=== PATIENT | female | born 1950 | race Caucasian/White ===

== ENCOUNTER → 2019-05-08 08:20 | Outpatient (CLI) | payer MEDICARE, SELFPAY ==
[2019-05-08 09:32] LABS: Alanine Aminotransferase 19 IU/L (<35); Albumin 4.3 g/dL (3.5-5.0); Albumin Globulin Ratio 1.2 (1.0-2.8); Alkaline Phosphatase 56 U/L (38-126); Aspartate Aminotransferase 21 IU/L (14-36); BUN Creatinine Ratio 21.2 (6-22); Bilirubin Total 0.6 mg/dL (0.2-1.3); Blood Urea Nitrogen 18 mg/dL (7-17); Calcium 9.9 mg/dL (8.4-10.2); Carbon Dioxide 30 mmol/L (22-32); Chloride 100 mmol/L (98-107); Estimated Glomerular Filt Rate > 60.0 mL/min (>60); Globulin 3.5 g/dL (1.7-4.1); Glucose 101 mg/dL (80-110); HEMOLYSIS < 15 (0-50); Sodium 136 mmol/L (137-145); Total Protein 7.8 g/dL (6.3-8.2)
[2019-05-08 09:47] LABS: Free T3, Triiodothyronine Free 2.85 pg/mL (2.77-5.27); Free T4, Direct Thyroxine 1.61 ng/dL (0.78-2.19)
[2019-05-08 10:00] LABS: Thyroid Stimulating Hormone 3.16 uIU/mL (0.47-4.68)
== END ==
PROVIDERS: PCP Nurse Practitioner; Referring Provider Nurse Practitioner; Visit Provider Nurse Practitioner
DX: E03.9 Hypothyroidism, unspecified (principal); F32.9 Major depressive disorder, single episode, unspecified; I10 Essential (primary) hypertension; Z79.899 Other long term (current) drug therapy
CPT/HCPCS: 36415; 80053; 84439; 84443; 84481

== ENCOUNTER → 2019-05-15 08:39 | Outpatient (CLI) | payer MEDICARE, SELFPAY ==
[2019-05-15 10:05] LABS: Alanine Aminotransferase 280 IU/L (<35); Albumin 4.7 g/dL (3.5-5.0); Albumin Globulin Ratio 1.3 (1.0-2.8); Alkaline Phosphatase 134 U/L (38-126); Aspartate Aminotransferase 122 IU/L (14-36); BUN Creatinine Ratio 11.3 (6-22); Bilirubin Total 1.2 mg/dL (0.2-1.3); Blood Urea Nitrogen 11 mg/dL (7-17); Carbon Dioxide 31 mmol/L (22-32); Chloride 96 mmol/L (98-107); Estimated Glomerular Filt Rate 56.9 mL/min (>60); Globulin 3.7 g/dL (1.7-4.1); Glucose 102 mg/dL (80-110); HEMOLYSIS < 15 (0-50); Potassium 4.1 mmol/L (3.4-5.1); Sodium 137 mmol/L (137-145); Total Protein 8.4 g/dL (6.3-8.2)
[2019-05-16 02:36] LABS: HBsAg Screen Negative (Negative); Hepatitis A Antibody IgM Negative (Negative); Hepatitis B Core Antibody IgM Negative (Negative); Hepatitis C Antibody <0.1 s/co ratio (0.0-0.9)
== END ==
PROVIDERS: PCP Nurse Practitioner; Referring Provider Nurse Practitioner; Visit Provider Nurse Practitioner
DX: R10.9 Unspecified abdominal pain (principal); R74.8 Abnormal levels of other serum enzymes
CPT/HCPCS: 36415; 80053; 80074

== ENCOUNTER → 2019-08-13 14:07 | Outpatient (CLI) | payer MEDICARE, SELFPAY | PROVIDERS: PCP Nurse Practitioner; Referring Provider Nurse Practitioner; Visit Provider Nurse Practitioner | DX: Z13.820 Encounter for screening for osteoporosis (principal); M81.0 Age-related osteoporosis without current pathological fracture; Z78.0 Asymptomatic menopausal state; E03.9 Hypothyroidism, unspecified; I10 Essential (primary) hypertension; F32.9 Major depressive disorder, single episode, unspecified; Z79.899 Other long term (current) drug therapy; Z82.62 Family history of osteoporosis | CPT/HCPCS: 77080 ==

== ENCOUNTER → 2019-08-21 12:32 | Outpatient (CLI) | payer MEDICARE, SELFPAY ==
[2019-08-21 15:40] LABS: Alanine Aminotransferase 17 IU/L (<35); Albumin 4.5 g/dL (3.5-5.0); Albumin Globulin Ratio 1.4 (1.0-2.8); Alkaline Phosphatase 64 U/L (38-126); Aspartate Aminotransferase 22 IU/L (14-36); Bilirubin Total 0.5 mg/dL (0.2-1.3); Bilirubin Unconjugated 0.4 mg/dL (0.0-1.1); Globulin 3.2 g/dL (1.7-4.1); HEMOLYSIS < 15 (0-50); Total Protein 7.7 g/dL (6.3-8.2)
== END ==
PROVIDERS: PCP Nurse Practitioner; Referring Provider Nurse Practitioner; Visit Provider Nurse Practitioner
DX: R94.5 Abnormal results of liver function studies (principal)
CPT/HCPCS: 36415; 80076

== ENCOUNTER → 2019-09-10 10:50 | Outpatient (CLI) | payer MEDICARE, SELFPAY ==
[2019-09-11 08:02] LABS: COVID19 Sendout Not Detected (Not Detect)
== END ==
PROVIDERS: PCP Nurse Practitioner; Visit Provider Physician Assistant
DX: Z01.812 Encounter for preprocedural laboratory examination (principal)
CPT/HCPCS: 87635

== ENCOUNTER 2019-09-13 06:47 | Day surgery (SDC) | payer MEDICARE, SELFPAY ==
--- NOTE | 2019-09-13 | PATH_ITS ---
[facility] Accession Number: [id number] . 01 Material submitted: . colon - COLON POLYP AT 65CM . 02 Diagnosis: Colon at 65 cm, Polyp: Colonic mucosa with prominent benign lymphoid aggregate. Negative for serrated lesion, dysplasia or malignancy. Additional step sections examined. MRV 09/17/2019 1356 Local . 02 Electronically signed: . Asim Camejo MD, PhD, Pathologist NPI- [id number] . 01 Gross description: . COLON POLYP AT 65CM: Received in formalin is 1 fragment(s) of bar, soft tissue measuring 0.3 x 0.2 x 0.2 cm submitted entirely in 1 cassette(s) /QBJ 09/14/2019 0435 Local . 02 Pathologist provided ICD-10: K63.5 . 02 CPT . 322901 Performed at: 01 [facility] [address], [place], [place] [id number] MD Mak Cullen MD Phone: [phone] Performed at: 02 [facility] [address] [place], [place] [id number] MD Alexandra Rivera MD Phone: [phone]
[2019-09-13 07:06] VITALS: BP 138/74; PULSE 74; RESP 18; TEMP 36.4; O2SAT 96; BMI 33.0
--- NOTE | 2019-09-13 07:17 | PM.HP.1 ---
History of Present Illness History of Present Illness Date Patient Seen: 09/13/19 Time Patient Seen: 07:17 Chief complaint: [id number] Narrative: This is a 68 yo woman with personal history of colon polyps found on prior colonoscopy. She says it has been about five years since her last procedure and she was told she is overdue for follow up scope. She denies any melena, hematochezia, unexplained abdominal pain, unexplained weight loss, significant family history of colon cancer. ROS: Positive for arthritis, hip pain, depression. The patient wears glasses. Thirteen system review is otherwise negative other than as mentioned below and in HPI. PE: GENERAL: Well groomed and cooperative. Appears stated age. Answers questions promptly and appropriately. Vital signs noted. HENT: Normocephalic, atraumatic. Hearing intact. EYES: Conjunctiva pink, sclera white, no periorbital swelling. CARDIOVASCULAR: Regular rate. No pedal edema. RESPIRATORY: Non-tachypneic, breathing comfortably on room air. GASTROINTESTINAL: Abdomen soft and non-distended GENITALURINARY: No flank tenderness. MUSCULOSKELETAL: Equal tone and mass bilaterally. SKIN: Warm, dry, soft, appropriate color for ethnicity. No other lesions, rashes, or wounds. NEURO: Alert and Oriented X 3. No gross sensory deficits, or cognitive issues. PSYCH: Appropriate affect and mood. Patient History Medical History Chronic lower back pain (Acute) Depression (Chronic) Elevated LFTs (Acute) Foot pain (Inactive ~1987) Hip pain (Chronic ~2016) Hypertension (Acute) Hypothyroidism (Chronic ~2013) Presence of orthotic device (Acute) Rosacea (Chronic) Tinnitus (Chronic ~2005) Surgical History Anesthesia (Resolved) Uterine polyp (Resolved ~2014) Family & Social History Family History Father Stroke Mother Hypertension Tobacco & Substance use: Smoking Status Never smoker Meds Home Medications and Allergies Home Medications Medication Instructions Recorded Confirmed Type levothyroxine 88 mcg tablet 88 mcg PO DAILY #90 tab 05/07/19 08/21/19 Rx bupropion HCl 100 mg tablet,12 hr 100 mg PO BID #180 each 05/27/19 08/21/19 Rx sustained-release lisinopril 20 1 tab PO DAILY #90 tab 07/26/19 08/21/19 Rx mg-hydrochlorothiazide 12.5 mg tablet Allergies Allergy/AdvReac Type Severity Reaction Status Date / Time No Known Drug Allergies Allergy Verified 09/13/19 07:19 Assessment & Plan Assessment and plan (1) Personal history of colonic polyps: Status: Acute Assessment & Plan narrative: Risks and benefits of screening colonoscopy and possible polypectomy were discussed with the patient including risk of bleeding, perforation, need for additional procedures, risks of anesthesia. The patient desires to proceed with the colonoscopy procedure. COVID-19 COVID-19 status: Negative Result date/Date tested (Pos, Neg/Pending): 09/10/19 Time Spent With Patient Time with patient: 15-24 minutes Quality VTE Deep Vein Thrombosis/Pulmonary Embolism Present on Admission: No
[2019-09-13] MEDS: SODIUM CHLORIDE 0.9% 1,000 ML 200 ML IV (07:21)
[2019-09-13] MEDS: MIDAZOLAM 5 MG/5 ML VIAL IV (07:55)
[2019-09-13] MEDS: fentaNYL 250 MCG/5 ML INJ IV (07:55)
--- NOTE | 2019-09-13 08:05 | PM.OP.ENDO ---
Operative Date/Time/Diagnoses Date of procedure: 09/13/19 Time of procedure: 08:05 Pre-op diagnosis: Personal history of colon polyps Post-op diagnosis: other (single polyp at 65 cm from the anal verge) Procedure & Clinicians Study performed: Colonoscopy, cold forceps polypectomy Sedation by endoscopist Same procedure as scheduled: Yes Indications: This is a 68-year-old woman who has had multiple prior colonoscopies, and polyps removed Surgeon: Kena Geronimo Procedure Notes SCOAP/Timeout: Performed Procedure in detail: The patient was brought to the room and placed in left lateral decubitus position with all bony prominences padded. A time-out was performed and then the patient was given procedural sedation starting with 2 mg of Versed and [100] mcg of fentanyl. A total of 3 mg of Versed and 150 micro g of fentanyl were given for the entire procedure. Vitals were monitored throughout the procedure and remained stable. Once adequately sedated, the procedure was begun. A rectal exam was performed revealing [no abnormalities]. The colonoscope was then introduced to the rectum and advanced to the cecum in the usual fashion. []The cecum was identified by the appendiceal orifice, the mucosal tri-fold, and the ileocecal valve. The scope was then retracted while rotating side to side and examining each mucosal fold. A 3 mm sessile polyp was found at 65 cm from the anal verge in the descending colon. It was completely removed with cold forceps. [] At the conclusion of the procedure retroflexion was performed and [small grade 1-2 internal hemorrhoids without stigmata of bleeding were seen]. The scope was then withdrawn from the rectum the procedure was concluded. The patient tolerated the procedure well and was transferred to the PACU in stable condition. Scope withdrawal time: 9 Sedation minutes: 16 Findings: polyp Specimen(s): other (Polyp from 65 cm) Complications: none Impression: Single polyp, otherwise normal colon Post-procedure Recommendations: Colonscopy in 5 years (Due to polyp history) Follow up: as needed Disposition: PACU
[2019-09-13 08:10] VITALS: BP 96/78; PULSE 59; RESP 11; TEMP 36.7; O2SAT 92
[2019-09-13 08:15] VITALS: BP 104/63; PULSE 99; RESP 11; O2SAT 92
[2019-09-13 08:20] VITALS: BP 103/57; PULSE 61; RESP 8; O2SAT 91
[2019-09-13 08:25] VITALS: BP 118/78; PULSE 73; RESP 13; TEMP 36.3; O2SAT 93
[2019-09-13 08:39] VITALS: BP 106/69; PULSE 65; RESP 16; TEMP 36.3; O2SAT 96
== END 2019-09-13 08:55 | disposition home or self-care (01) ==
PROVIDERS: PCP Nurse Practitioner; Referring Provider Surgery; Visit Provider Surgery
PROC: 0DJD8ZZ Inspection of Lower Intestinal Tract, Via Natural or Artificial Opening Endoscopic (ICD-10-PCS; CPT 45378; principal; 2019-09-13 07:45)
DX: Z12.11 Encounter for screening for malignant neoplasm of colon (principal); Z86.010 Personal history of colon polyps; I10 Essential (primary) hypertension; F32.9 Major depressive disorder, single episode, unspecified; E03.9 Hypothyroidism, unspecified; K64.0 First degree hemorrhoids; K63.5 Polyp of colon
CPT/HCPCS: 45380; 99152; J2250; J3010

== ENCOUNTER → 2019-11-27 16:29 | Outpatient (CLI) | payer MEDICARE, SELFPAY ==
--- NOTE | 2019-11-27 16:36 | DI.MG.S_ITS ---
BILATERAL DIGITAL SCREENING MAMMOGRAM 3D/2D WITH CAD: 11/27/2019 CLINICAL: Routine screening. Comparison is made to exams dated: 12/08/2017 mammogram, 10/28/2016 mammogram, and 10/19/2015 mammogram - outside location. The tissue of both breasts is predominantly fatty. Current study was also evaluated with a Computer Aided Detection (CAD) system. No significant masses, calcifications, or other findings are seen in either breast. There has been no significant interval change. IMPRESSION: NEGATIVE There is no mammographic evidence of malignancy. A 1 year screening mammogram is recommended. This exam was interpreted at Station ID: [id number]. NOTE: For mammograms, a report in lay terms will be sent to the patient. Approximately 15% of breast malignancies will not be visualized mammographically. In the management of a palpable breast mass, a negative mammogram must not discourage biopsy of a clinically suspicious lesion. Electronically Signed By: Dominick Lawson M.D., jr/eh:11/27/2019 16:59:35 letter sent: Normal Exam ACR BI-RADS Category 1: Negative 3341F
== END ==
PROVIDERS: PCP Nurse Practitioner; Referring Provider Nurse Practitioner; Visit Provider Nurse Practitioner
DX: Z12.31 Encounter for screening mammogram for malignant neoplasm of breast (principal)
CPT/HCPCS: 77063; 77067

== ENCOUNTER → 2020-12-18 09:32 | Outpatient (CLI) | payer MEDICARE, SELFPAY ==
[2020-12-18 10:55] LABS: Alanine Aminotransferase 22 IU/L (<35); Albumin 4.4 g/dL (3.5-5.0); Albumin Globulin Ratio 1.3 (1.0-2.8); Alkaline Phosphatase 63 U/L (38-126); Aspartate Aminotransferase 23 IU/L (14-36); Bilirubin Total 0.5 mg/dL (0.2-1.3); Blood Urea Nitrogen 15 mg/dL (7-17); Carbon Dioxide 29 mmol/L (22-32); Chloride 99 mmol/L (98-107); Estimated Glomerular Filt Rate 54.7 mL/min (>60); Globulin 3.5 g/dL (1.7-4.1); Glucose 104 mg/dL (80-110); HEMOLYSIS < 15 (0-50); Potassium 3.9 mmol/L (3.4-5.1); Sodium 136 mmol/L (137-145); Total Protein 7.9 g/dL (6.3-8.2)
[2020-12-18 11:25] LABS: Thyroid Stimulating Hormone 4.54 uIU/mL (0.47-4.68)
== END ==
PROVIDERS: PCP Nurse Practitioner; Referring Provider Nurse Practitioner; Visit Provider Nurse Practitioner
DX: I10 Essential (primary) hypertension (principal); E03.9 Hypothyroidism, unspecified; F32.9 Major depressive disorder, single episode, unspecified; R79.89 Other specified abnormal findings of blood chemistry; Z79.899 Other long term (current) drug therapy
CPT/HCPCS: 36415; 80053; 84443

== ENCOUNTER → 2020-12-19 09:39 | Outpatient (CLI) | payer MEDICARE, SELFPAY ==
[2020-12-19 10:27] LABS: Creatinine Urine Random 188.5 mg/dL
[2020-12-19 10:32] LABS: Microalbumi Creatinin Ratio Ur 7.4 ug/mg CR (<30); Microalbumin Urine Random 1.4 mg/dL (0-1.6)
== END ==
PROVIDERS: PCP Nurse Practitioner; Referring Provider Nurse Practitioner; Visit Provider Nurse Practitioner
DX: R79.89 Other specified abnormal findings of blood chemistry (principal); I10 Essential (primary) hypertension; F32.9 Major depressive disorder, single episode, unspecified; E03.9 Hypothyroidism, unspecified; Z79.899 Other long term (current) drug therapy
CPT/HCPCS: 82043; 82570

== ENCOUNTER → 2021-01-15 10:58 | Outpatient (CLI) | payer MEDICARE, SELFPAY ==
--- NOTE | 2021-01-15 | DI.RAD.S_ITS ---
PROCEDURE: XR DEXA AXIAL SKELETON INDICATIONS: ROUTINE MAMMO COMPARISON: [facility], CR, XR DEXA AXIAL SKELETON, 08/13/2019, 14:44. FINDINGS: This blank DEXA report has been sent in error by the PACS system. The correct and complete report will be forthcoming in 1-2 days. Thank you for your patience and understanding. Dictated by: Tori Mora MD, PhD on 01/15/2021 at 16:19 Approved by: Toir Mora MD, PhD on 01/15/2021 at 16:19
--- NOTE | 2021-01-15 11:00 | DI.MG.S_ITS ---
BILATERAL DIGITAL SCREENING MAMMOGRAM 3D/2D WITH CAD: 01/15/2021 CLINICAL: Routine screening. Comparison is made to exams dated: 12/08/2017 mammogram, 10/28/2016 mammogram - outside location, and 11/27/2019 mammogram - [facility]. There are scattered fibroglandular elements in both breasts. Current study was also evaluated with a Computer Aided Detection (CAD) system. No significant masses, calcifications, or other findings are seen in either breast. There has been no significant interval change. IMPRESSION: NEGATIVE There is no mammographic evidence of malignancy. A 1 year screening mammogram is recommended. This exam was interpreted at Station ID: [id number]. NOTE: For mammograms, a report in lay terms will be sent to the patient. Approximately 15% of breast malignancies will not be visualized mammographically. In the management of a palpable breast mass, a negative mammogram must not discourage biopsy of a clinically suspicious lesion. Electronically Signed By: Min casarez/eh:01/15/2021 12:34:33 letter sent: Normal Exam ACR BI-RADS Category 1: Negative [id number]
== END ==
PROVIDERS: Family Provider Nurse Practitioner; PCP Nurse Practitioner; Referring Provider Nurse Practitioner; Visit Provider Nurse Practitioner
DX: Z12.31 Encounter for screening mammogram for malignant neoplasm of breast (principal); M85.88 Other specified disorders of bone density and structure, other site; Z78.0 Asymptomatic menopausal state; E07.9 Disorder of thyroid, unspecified; Z82.62 Family history of osteoporosis
CPT/HCPCS: 77063; 77067; 77080

== ENCOUNTER → 2021-02-02 12:03 | Outpatient (CLI) | payer MEDICARE, SELFPAY ==
[2021-02-02 12:39] LABS: Leukocyte Esterase Urine UA 1+ (NEGATIVE)
[2021-02-02 12:59] LABS: Squamous Epithelial Cell Urine 5-10 /HPF (0-5/HPF); WBC Urine 5-10/HPF (0-5/HPF)
== END ==
PROVIDERS: Family Provider Nurse Practitioner; PCP Nurse Practitioner; Referring Provider Nurse Practitioner; Visit Provider Nurse Practitioner
DX: N89.8 Other specified noninflammatory disorders of vagina (principal); R30.0 Dysuria
CPT/HCPCS: 81003; 81015; 87070; 87077; 87147; 87205

== ENCOUNTER 2021-03-10 11:15 | Outpatient (RCR) | payer MEDICARE, SELFPAY ==
--- NOTE | 2021-01-07 17:17 | PT.OPPOC ---
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) Pain in right foot (01/07/21) Difficulty in walking, not elsewhere classified (01/07/21) Visit Care Team Role Provider Type DALE Jimenez Attending Provider Advanced Catalogue Maker Family Provider Primary Care Provider Referring Provider Specialty: Family Practice Address: [address] [place] [address], [facility] Email: [email or web address] Plan Of Care PT-OP-T Assessment and Plan Start: 01/06/21 12:55 Freq: Status: Active Protocol: Document 01/07/21 09:45 AW (Rec: 01/07/21 17:22 AW [email or web address]) Physical Therapy Assessment Rehab Potential Rehabilitation Potential Good Evaluation Complexity Number of Personal Factors/Comorbidities 1-2 Number of Body Systems Impaired 1-2 Clinical Presentation at Evaluation Stable Impairments Impairments Activity Tolerance,Balance, Gait,Pain,Posture,Strength Other Concerns Fall Risk moderate Goals Five Impairment endurance Impairment Pt lacks tolerance to walk a mile Short Term Goal (STG) Pt will complete 1200 feet on 6MWT with no breaks as a measure of improved walking tolerance. STG Duration 02/11/21 Access Service Representative Goal (LTG) Pt will complete 1500 feet on 6MWT with no breaks as a measure of improved walking tolerance and parity with age and gender-matched peers. LTG Duration 04/09/21 Four Impairment strength Impairment unable to squat to work in garden Short Term Goal (STG) Pt will complete 10 reps or greater on 30 Second Sit to Stand test without use of hands for improved BLE strength. STG Duration 02/11/21 Access Service Representative Goal (LTG) Pt will get up from the floor SBA to improve her ability to participate in gardening activities. LTG Duration 04/09/21 Three Impairment self-efficacy Impairment ABC score 80% Access Service Representative Goal (LTG) Pt will improve ABC score to 90% or greater as a measure of improved self-efficacy related to falls risk. LTG Duration 04/09/21 Two Impairment dynamic balance Impairment FGA Access Service Representative Goal (LTG) Pt will improve FGA score from to 27/30 or greater for parity with age-matched peers and as a measure of reduced falls risk. LTG Duration 04/09/21 One Impairment lacks HEP Short Term Goal (STG) Pt will be instructed in progressive HEP for general BLE strengthening. STG Duration 02/11/21 Snf Goal (LTG) Pt will be independent with HEP with possible addition of machine weight exercises for pool/gym workouts. LTG Duration 04/09/21 Assessment Summary Assessment Harleen is a 70 yo woman presenting to outpatient physical therapy with general deconditioning and weakness associated with decreased activity over the past two years. 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 On assessment, pt demonstrates decreased bilateral lower extremity strength and impaired dynamic balance as evidenced by Functional Gait Assessment score of 22/30. Harleen is expected to benefit from skilled physical therapy to improve strength, gait quality , and balance with the goal of returning to gardening, walking, and weight lifting activities. Physical Therapy Plan Frequency and Duration Frequency of Treatment 1-2x/week Duration of Treatment 3 months Plan of Care Start Date 01/07/21 Plan of Care End Date 04/09/21 Therapeutic Interventions Therapeutic Interventions Balance Training,Gait Training ,Home Exercise Program,Manual Therapy,Orthotic/Prosthetic Management,Patient/Caregiver Education,Self-Care/Home Management,Soft Tissue Mobilization,Taping, Therapeutic Activities, Therapeutic Exercises Modalities Cold Pack/Ice Massage,Hot Packs Next Visit Focus/Plan Next Note Type Treatment Note Next Visit Plan Assess 5 Time Sit to Stand, 6MWT. Recumbent bike for endurance. Initiate intrinsic foot exercise and assess potential for standing ther ex . Plan of Care Dates Plan of Care Start Date 01/07/21 Plan of Care End Date 04/09/21 Electronically Signed by: Lisseth Yost, PT 01/12/21 0540 Please Sign and Return: I have reviewed this Plan of Care and certify that the skilled therapy services above are required to meet the patient?s needs. Physician Signature Date Printed Name and Credentials Clinical Instructor Signature Printed Name and Credentials
--- NOTE | 2021-01-07 17:17 | PT.OIE ---
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) Pain in right foot (01/07/21) Difficulty in walking, not elsewhere classified (01/07/21) Past Medical History (Last Reviewed 12/30/20 @ 16:25 by DALE Jimenez) Chronic lower back pain Counseling regarding advanced care planning and goals of care Depression Elevated LFTs Foot pain (~1987) Hip pain (~2016) Hypertension Hypothyroidism (~2013) Presence of orthotic device Rosacea Tinnitus (~2005) Past Surgical History (Last Reviewed 12/30/20 @ 16:25 by DALE Jimenez) Anesthesia Uterine polyp (~2014) Visit Care Team Role Provider Type DALE Jimenez Attending Provider Advanced Chiropractic Teacher Family Provider Primary Care Provider Referring Provider Specialty: Family Practice Address: [address] [place] [address], [facility] Email: [email or web address] Physical Therapy Initial Evaluation PT-OP-A Visit Information Start: 01/06/21 12:55 Freq: Status: Active Protocol: Document 01/07/21 09:45 AW (Rec: 01/07/21 10:20 AW [email or web address]) Out-Patient Physical Therapy Visit Information Visit Information Visit Type Initial Evaluation Visit Start Time 09:00 Visit Stop Time 09:45 Total Visit Minutes 45 Visit Number 1 Number of NOC TECHNICIAN Visits 0 Evaluation Information Evaluation Date 01/07/21 Precautions Precautions osteoporosis PT-OP-B Current Condition Start: 01/06/21 12:55 Freq: Status: Active Protocol: Document 01/07/21 09:45 AW (Rec: 01/06/21 14:33 AW [email or web address]) Current Condition History of Current Condition Onset Date 2 years Current Complaints right foot pain; B knee pain; fear of falling History of Current Condition Harleen used to be more active, including aerobics classes, swimming, and weight room workouts up until a few years ago. She has been less and less active recently. She attributes this to pandemic restrictions but also to right foot pain. She says her right foot arch collapsed 30 years ago without known cause. She wears a custom orthotic in all of her shoes. She is followed by podiatry who agrees her current orthosis is appropriate. She feels terribly weak and is fearful of falling due to osteoporosis . Current activity includes pool exercise three times weekly which is an important social outlet. She belongs to [employer]. She would like to have an appropriate program to use the weight room at the pool. She now finds it difficult to walk longer distances without walking sticks but she is comfortable doing shopping trips without assistive device. She notes her walking is hesitant and slow. Pt denies falls but remains fearful of falling. PMH includes osteoporosis, depression, tinnitus, HTN. Prior Treatments and Tests Pt is followed by podiatry. No prior PT. Future Testing and Treatments Planned None identified Treatment Goals Patient/Caregiver Goals Pt would like to be more comfortable working in the garden. She has difficulty squatting to garden so tends to sit down on the ground but has trouble getting up. She would like to walk farther with less pain. She would like to engage in a weightlifting program. Prior Functional Status Baseline Function- ADL's Independent Baseline Function- Mobility Independent Baseline Function- Gait no AD Current Functional Impairments (Reported) Functional Limitations- ADL's Dressing has become more challenging Functional Limitations- Mobility/Gait Bed mobility and other transitions are difficult. Needs walking sticks for longer distance walking. Functional Limitations- Recreation/ Trouble squatting and getting Hobbies up from the ground which limits gardening. Personal Factors Other Personal Factors That May Effect Depression and chronicity of Therapy/Recovery deficits may affect rehab outcomes. PT-OP-C Subjective Start: 01/06/21 12:55 Freq: Status: Active Protocol: Document 01/07/21 09:45 AW (Rec: 01/07/21 10:20 AW [email or web address]) OP-PT Subjective Patient Comments Patient Comments Pt reports weakness and fear of falling. Patient Questionnaires ABC- Activity Specific Balance Confidence Scale ABC Score 80 ABC Functional Impairment 20 to <40% Impaired (Score 61- 80) Lower Extremity Functional Scale LEFS Score 48 LEFS Impairment 20 to 39% Impaired (Score 48- 62) OP-PT Pain Assessment Pain Assessment Grid Paper Pain Assessment Grid Completed Yes: Scanned to EMR PT-OP-D Balance Start: 01/06/21 12:55 Freq: Status: Active Protocol: Document 01/07/21 09:45 AW (Rec: 01/07/21 10:25 AW [email or web address]) OP-PT Balance Assessment Sitting Balance Static Sitting Balance Ability Normal Dynamic Sitting Balance Ability Normal Standing Balance Static Standing Balance Ability Fair Dynamic Standing Balance Ability Fair Arora Fall Scale Copyright Permission PT-OP-E Functional Tests Start: 01/06/21 12:55 Freq: Status: Active Protocol: Document 01/07/21 09:45 AW (Rec: 01/07/21 10:25 AW [email or web address]) Functional Tests Dynamic Gait Index (DGI) Score 21 DGI Impairment Rating 1 to <20% Impaired (Score 20- 23) Functional Gait Assessment Score 22 Functional Gait Assessment Impairment 20 to <40% Impaired (Score 19- Rating 24) PT-OP-G Mobility & Gait Start: 01/06/21 12:55 Freq: Status: Active Protocol: Document 01/07/21 09:45 AW (Rec: 01/07/21 10:29 AW [email or web address]) OP Mobility Evaluation Bed Mobility Rolling Independent but slow and labored Supine to and from Sit Independent but slow and labored Transfers Sit to Stand Definite use of hands Floor Transfers Great difficulty per pt report . Not assessed. OP Gait Assessment Gait Gait Assistance Required: Independent Distance (Feet) 300 Gait Deviations General Gait Pattern Antalgic,Decreased Feet Clearance,Step-to Gait Factors Limiting Gait Function Factors Limiting Gait Function Decreased Activity Tolerance, Decreased Strength,Limited Range of Motion,Pain,Poor Balance Comments Gait Comments Pt ambulates with forefoot pronation most obvious on right side. Foot scuffs BLE on ~10% of steps indicating poor foot clearance. PT-OP-H Neuro Start: 01/06/21 12:55 Freq: Status: Active Protocol: Document 01/07/21 09:45 AW (Rec: 01/07/21 10:29 AW [email or web address]) Sensation Evaluation Gross Sensation Gross Sensation Left LE Impaired,Right LE Impaired Sensation Description Tingling Comments Summary Comments Tingling reported in bilateral feet - not at all times but more noticable at night. Deep Tendon Reflex & Clonus Assessment Deep Tendon Reflex Bilateral Achilles Deep Tendon Reflex 2+ Normal Bilateral Patellar Deep Tendon Reflex 2+ Normal PT-OP-K Range of Motion Start: 01/06/21 12:55 Freq: Status: Active Protocol: Document 01/07/21 09:45 AW (Rec: 01/07/21 17:15 AW [email or web address]) Ankle and Foot Goniometric Range of Motion Ankle and Foot right Ankle/Foot ROM WFL Yes Testing Position Supine Dorsiflexion with Knee Flexed 20 Plantarflexion 40 Inversion 39 Eversion 20 left Ankle/Foot ROM WFL Yes Testing Position Supine Dorsiflexion with Knee Flexed 20 Plantarflexion 40 Inversion 33 Eversion 18 PT-OP-M Strength Start: 01/06/21 12:55 Freq: Status: Active Protocol: Document 01/07/21 09:45 AW (Rec: 01/07/21 17:15 AW [email or web address]) Hip Strength Hip Manual Muscle Testing bilat Flexion (L2) 4+ Good+ Extension (S1) 4 Good Abduction 4 Good Adduction 4+ Good+ External Rotation 4+ Good+ Internal Rotation 4+ Good+ Knee Strength Knee Manual Muscle Testing bilat Flexion (S2) 4 Good Extension (L3) 4+ Good+ Ankle/Foot Strength Ankle and Foot Manual Muscle Testing bilat Dorsiflexion (L4) 4+ Good+ Inversion 4+ Good+ Eversion (S1) 4+ Good+ Comments Plantar flexion tested in standing. Pt able to complete 5 bilat heel lifts. She was unable to complete unilateral heel lift with quality one time each side. PT-OP-T Assessment and Plan Start: 01/06/21 12:55 Freq: Status: Active Protocol: Document 01/07/21 09:45 AW (Rec: 01/07/21 17:22 AW [email or web address]) Physical Therapy Assessment Rehab Potential Rehabilitation Potential Good Evaluation Complexity Number of Personal Factors/Comorbidities 1-2 Number of Body Systems Impaired 1-2 Clinical Presentation at Evaluation Stable Impairments Impairments Activity Tolerance,Balance, Gait,Pain,Posture,Strength Other Concerns Fall Risk moderate Goals Five Impairment endurance Impairment Pt lacks tolerance to walk a mile Short Term Goal (STG) Pt will complete 1200 feet on 6MWT with no breaks as a measure of improved walking tolerance. STG Duration 02/11/21 Equipment Driver Goal (LTG) Pt will complete 1500 feet on 6MWT with no breaks as a measure of improved walking tolerance and parity with age and gender-matched peers. LTG Duration 04/09/21 Four Impairment strength Impairment unable to squat to work in garden Short Term Goal (STG) Pt will complete 10 reps or greater on 30 Second Sit to Stand test without use of hands for improved BLE strength. STG Duration 02/11/21 Equipment Driver Goal (LTG) Pt will get up from the floor SBA to improve her ability to participate in gardening activities. LTG Duration 04/09/21 Three Impairment self-efficacy Impairment ABC score 80% Correction Goal (LTG) Pt will improve ABC score to 90% or greater as a measure of improved self-efficacy related to falls risk. LTG Duration 04/09/21 Two Impairment dynamic balance Impairment FGA 22/30 Correction Goal (LTG) Pt will improve FGA score from 22/30 to 27/30 or greater for parity with age-matched peers and as a measure of reduced falls risk. LTG Duration 04/09/21 One Impairment lacks HEP Short Term Goal (STG) Pt will be instructed in progressive HEP for general BLE strengthening. STG Duration 02/11/21 Correction Goal (LTG) Pt will be independent with HEP with possible addition of machine weight exercises for pool/gym workouts. LTG Duration 04/09/21 Assessment Summary Assessment Harleen is a 70 yo woman presenting to outpatient physical therapy with general deconditioning and weakness associated with decreased activity over the past two years. 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 On assessment, pt demonstrates decreased bilateral lower extremity strength and impaired dynamic balance as evidenced by Functional Gait Assessment score of 22/30. Harleen is expected to benefit from skilled physical therapy to improve strength, gait quality , and balance with the goal of returning to gardening, walking, and weight lifting activities. Physical Therapy Plan Frequency and Duration Frequency of Treatment 1-2x/week Duration of Treatment 3 months Plan of Care Start Date 01/07/21 Plan of Care End Date 04/09/21 Therapeutic Interventions Therapeutic Interventions Balance Training,Gait Training ,Home Exercise Program,Manual Therapy,Orthotic/Prosthetic Management,Patient/Caregiver Education,Self-Care/Home Management,Soft Tissue Mobilization,Taping, Therapeutic Activities, Therapeutic Exercises Modalities Cold Pack/Ice Massage,Hot Packs Next Visit Focus/Plan Next Note Type Treatment Note Next Visit Plan Assess 5 Time Sit to Stand, 6MWT. Recumbent bike for endurance. Initiate intrinsic foot exercise and assess potential for standing ther ex .
--- NOTE | 2021-01-14 13:02 | PT.OTN ---
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) Pain in right foot (01/14/21) Difficulty in walking, not elsewhere classified (01/14/21) Physical Therapy Treatment Note PT-OP-A Visit Information Start: 01/06/21 12:55 Freq: Status: Active Protocol: Document 01/14/21 11:15 AW (Rec: 01/14/21 11:18 AW [id number]) Out-Patient Physical Therapy Visit Information Visit Information Visit Type Treatment Note Visit Start Time 10:30 Visit Stop Time 11:15 Total Visit Minutes 45 Visit Number 2 Number of HEAD BANQUET WAITRESS Visits 0 Evaluation Information Evaluation Date 01/07/21 Precautions Precautions osteoporosis PT-OP-B Current Condition Start: 01/06/21 12:55 Freq: Status: Active Protocol: Document 01/07/21 09:45 AW (Rec: 01/06/21 14:33 AW [email or web address]) Current Condition History of Current Condition Onset Date 2 years Current Complaints right foot pain; B knee pain; fear of falling History of Current Condition Harleen used to be more active, including aerobics classes, swimming, and weight room workouts up until a few years ago. She has been less and less active recently. She attributes this to pandemic restrictions but also to right foot pain. She says her right foot arch collapsed 30 years ago without known cause. She wears a custom orthotic in all of her shoes. She is followed by podiatry who agrees her current orthosis is appropriate. She feels terribly weak and is fearful of falling due to osteoporosis . Current activity includes pool exercise three times weekly which is an important social outlet. She belongs to [employer]. She would like to have an appropriate program to use the weight room at the pool. She now finds it difficult to walk longer distances without walking sticks but she is comfortable doing shopping trips without assistive device. She notes her walking is hesitant and slow. Pt denies falls but remains fearful of falling. PMH includes osteoporosis, depression, tinnitus, HTN. Prior Treatments and Tests Pt is followed by podiatry. No prior PT. Future Testing and Treatments Planned None identified Treatment Goals Patient/Caregiver Goals Pt would like to be more comfortable working in the garden. She has difficulty squatting to garden so tends to sit down on the ground but has trouble getting up. She would like to walk farther with less pain. She would like to engage in a weightlifting program. Prior Functional Status Baseline Function- ADL's Independent Baseline Function- Mobility Independent Baseline Function- Gait no AD Current Functional Impairments (Reported) Functional Limitations- ADL's Dressing has become more challenging Functional Limitations- Mobility/Gait Bed mobility and other transitions are difficult. Needs walking sticks for longer distance walking. Functional Limitations- Recreation/ Trouble squatting and getting Hobbies up from the ground which limits gardening. Personal Factors Other Personal Factors That May Effect Depression and chronicity of Therapy/Recovery deficits may affect rehab outcomes. PT-OP-C Subjective Start: 01/06/21 12:55 Freq: Status: Active Protocol: Document 01/14/21 11:15 AW (Rec: 01/14/21 11:18 AW [id number]) OP-PT Subjective Patient Comments Patient Comments Pt has no new complaints. PT-OP-D Balance Start: 01/06/21 12:55 Freq: Status: Active Protocol: Document 01/07/21 09:45 AW (Rec: 01/07/21 10:25 AW [email or web address]) OP-PT Balance Assessment Sitting Balance Static Sitting Balance Ability Normal Dynamic Sitting Balance Ability Normal Standing Balance Static Standing Balance Ability Fair Dynamic Standing Balance Ability Fair Arora Fall Scale Copyright Permission PT-OP-E Functional Tests Start: 01/06/21 12:55 Freq: Status: Active Protocol: Document 01/07/21 09:45 AW (Rec: 01/07/21 10:25 AW [email or web address]) Functional Tests Dynamic Gait Index (DGI) Score 21 DGI Impairment Rating 1 to <20% Impaired (Score 20- 23) Functional Gait Assessment Score 22 Functional Gait Assessment Impairment 20 to <40% Impaired (Score 19- Rating 24) PT-OP-G Mobility & Gait Start: 01/06/21 12:55 Freq: Status: Active Protocol: Document 01/07/21 09:45 AW (Rec: 01/07/21 10:29 AW [email or web address]) OP Mobility Evaluation Bed Mobility Rolling Independent but slow and labored Supine to and from Sit Independent but slow and labored Transfers Sit to Stand Definite use of hands Floor Transfers Great difficulty per pt report . Not assessed. OP Gait Assessment Gait Gait Assistance Required: Independent Distance (Feet) 300 Gait Deviations General Gait Pattern Antalgic,Decreased Feet Clearance,Step-to Gait Factors Limiting Gait Function Factors Limiting Gait Function Decreased Activity Tolerance, Decreased Strength,Limited Range of Motion,Pain,Poor Balance Comments Gait Comments Pt ambulates with forefoot pronation most obvious on right side. Foot scuffs BLE on ~10% of steps indicating poor foot clearance. PT-OP-H Neuro Start: 01/06/21 12:55 Freq: Status: Active Protocol: Document 01/07/21 09:45 AW (Rec: 01/07/21 10:29 AW [email or web address]) Sensation Evaluation Gross Sensation Gross Sensation Left LE Impaired,Right LE Impaired Sensation Description Tingling Comments Summary Comments Tingling reported in bilateral feet - not at all times but more noticable at night. Deep Tendon Reflex & Clonus Assessment Deep Tendon Reflex Bilateral Achilles Deep Tendon Reflex 2+ Normal Bilateral Patellar Deep Tendon Reflex 2+ Normal PT-OP-K Range of Motion Start: 01/06/21 12:55 Freq: Status: Active Protocol: Document 01/07/21 09:45 AW (Rec: 01/07/21 17:15 AW [email or web address]) Ankle and Foot Goniometric Range of Motion Ankle and Foot right Ankle/Foot ROM WFL Yes Testing Position Supine Dorsiflexion with Knee Flexed 20 Plantarflexion 40 Inversion 39 Eversion 20 left Ankle/Foot ROM WFL Yes Testing Position Supine Dorsiflexion with Knee Flexed 20 Plantarflexion 40 Inversion 33 Eversion 18 PT-OP-M Strength Start: 01/06/21 12:55 Freq: Status: Active Protocol: Document 01/07/21 09:45 AW (Rec: 01/07/21 17:15 AW [email or web address]) Hip Strength Hip Manual Muscle Testing bilat Flexion (L2) 4+ Good+ Extension (S1) 4 Good Abduction 4 Good Adduction 4+ Good+ External Rotation 4+ Good+ Internal Rotation 4+ Good+ Knee Strength Knee Manual Muscle Testing bilat Flexion (S2) 4 Good Extension (L3) 4+ Good+ Ankle/Foot Strength Ankle and Foot Manual Muscle Testing bilat Dorsiflexion (L4) 4+ Good+ Inversion 4+ Good+ Eversion (S1) 4+ Good+ Comments Plantar flexion tested in standing. Pt able to complete 5 bilat heel lifts. She was unable to complete unilateral heel lift with quality one time each side. PT-OP-Q Treatments Start: 01/06/21 12:55 Freq: Status: Active Protocol: Document 01/14/21 11:15 AW (Rec: 01/14/21 11:18 AW [id number]) Therapeutic Exercises Supine Exercises hip adduction Supine Exercise Name hip adduction with ball Equipment Used sm green ball Reps/Minutes 5SH x 12 supine clam Supine Exercise Name supine clam Side bilateral Resistance TB1 Reps/Minutes 2x12 Comments cued ppt; quality eccentric control Sitting Exercises arch lift Sitting Exercise Name arch lift Side right Comments cues to reduce clawing foot intrinsics Sitting Exercise Name foot intrinsics - towel scrunch, marble excelsior picker Side right Reps/Minutes 5 min Comments good ROM, fatigues easily Other Exercises sit to stand Other Exercise Name sit to stand Equipment Used std ht chair Reps/Minutes x5; 24.2 seconds Comments UE's reaching forward Gait Training Gait Activity 6MWT Description 6MWT Device Used none Level of Assistance SBA Surface level - tile and carpet Distance/Duration 1015 feet Treatment Focus assessment Comments 0.86 m/s. All split/lap times within 5 seconds. Pt was mildly SOB at end. PT-OP-T Assessment and Plan Start: 01/06/21 12:55 Freq: Status: Active Protocol: Document 01/14/21 11:15 AW (Rec: 01/14/21 13:02 AW [email or web address]) Physical Therapy Assessment Goals Five Impairment endurance Impairment Pt lacks tolerance to walk a mile Short Term Goal (STG) Pt will complete 1200 feet on 6MWT with no breaks as a measure of improved walking tolerance. STG Duration 02/11/21 Fdc Goal (LTG) Pt will complete 1500 feet on 6MWT with no breaks as a measure of improved walking tolerance and parity with age and gender-matched peers. LTG Duration 04/09/21 Four Impairment strength Impairment unable to squat to work in garden Short Term Goal (STG) Pt will complete 10 reps or greater on 30 Second Sit to Stand test without use of hands for improved BLE strength. STG Duration 02/11/21 Fdc Goal (LTG) Pt will get up from the floor SBA to improve her ability to participate in gardening activities. LTG Duration 04/09/21 Three Impairment self-efficacy Impairment ABC score 80% Production Control Manager Goal (LTG) Pt will improve ABC score to 90% or greater as a measure of improved self-efficacy related to falls risk. LTG Duration 04/09/21 Two Impairment dynamic balance Impairment FGA 22/30 Fdc Goal (LTG) Pt will improve FGA score from 22/30 to 27/30 or greater for parity with age-matched peers and as a measure of reduced falls risk. LTG Duration 04/09/21 One Impairment lacks HEP Short Term Goal (STG) Pt will be instructed in progressive HEP for general BLE strengthening. STG Duration 02/11/21 Production Control Manager Goal (LTG) Pt will be independent with HEP with possible addition of machine weight exercises for pool/gym workouts. LTG Duration 04/09/21 Assessment Summary Assessment Harleen completed 6MWT today with an average gait speed of 0.86 m/s. She was short of breath and had increased achiness in her right foot. Issued initial HEP today and pt tolerated ther ex well and is motivated to continue. Physical Therapy Plan Frequency and Duration Frequency of Treatment 1-2x/week Duration of Treatment 3 months Plan of Care Start Date 01/07/21 Plan of Care End Date 04/09/21 Therapeutic Interventions Therapeutic Interventions Balance Training,Gait Training ,Home Exercise Program,Manual Therapy,Orthotic/Prosthetic Management,Patient/Caregiver Education,Self-Care/Home Management,Soft Tissue Mobilization,Taping, Therapeutic Activities, Therapeutic Exercises Modalities Cold Pack/Ice Massage,Hot Packs Next Visit Focus/Plan Next Note Type Treatment Note Next Visit Plan Recumbent bike for endurance. Assess response to initial HEP , progress as able.
--- NOTE | 2021-01-19 16:10 | PT.OTN ---
Current Diagnoses Other specified phobia (01/19/21) Pain in right foot (01/19/21) Difficulty in walking, not elsewhere classified (01/19/21) Physical Therapy Treatment Note PT-OP-A Visit Information Start: 01/06/21 12:55 Freq: Status: Active Protocol: Document 01/19/21 15:59 AW (Rec: 01/19/21 16:06 AW [id number]) Out-Patient Physical Therapy Visit Information Visit Information Visit Type Treatment Note Visit Start Time 15:15 Visit Stop Time 15:59 Total Visit Minutes 44 Visit Number 3 Number of PELT SALTER Visits 0 Evaluation Information Evaluation Date 01/07/21 Precautions Precautions osteoporosis PT-OP-B Current Condition Start: 01/06/21 12:55 Freq: Status: Active Protocol: Document 01/07/21 09:45 AW (Rec: 01/06/21 14:33 AW [email or web address]) Current Condition History of Current Condition Onset Date 2 years Current Complaints right foot pain; B knee pain; fear of falling History of Current Condition Harleen used to be more active, including aerobics classes, swimming, and weight room workouts up until a few years ago. She has been less and less active recently. She attributes this to pandemic restrictions but also to right foot pain. She says her right foot arch collapsed 30 years ago without known cause. She wears a custom orthotic in all of her shoes. She is followed by podiatry who agrees her current orthosis is appropriate. She feels terribly weak and is fearful of falling due to osteoporosis . Current activity includes pool exercise three times weekly which is an important social outlet. She belongs to [employer]. She would like to have an appropriate program to use the weight room at the pool. She now finds it difficult to walk longer distances without walking sticks but she is comfortable doing shopping trips without assistive device. She notes her walking is hesitant and slow. Pt denies falls but remains fearful of falling. PMH includes osteoporosis, depression, tinnitus, HTN. Prior Treatments and Tests Pt is followed by podiatry. No prior PT. Future Testing and Treatments Planned None identified Treatment Goals Patient/Caregiver Goals Pt would like to be more comfortable working in the garden. She has difficulty squatting to garden so tends to sit down on the ground but has trouble getting up. She would like to walk farther with less pain. She would like to engage in a weightlifting program. Prior Functional Status Baseline Function- ADL's Independent Baseline Function- Mobility Independent Baseline Function- Gait no AD Current Functional Impairments (Reported) Functional Limitations- ADL's Dressing has become more challenging Functional Limitations- Mobility/Gait Bed mobility and other transitions are difficult. Needs walking sticks for longer distance walking. Functional Limitations- Recreation/ Trouble squatting and getting Hobbies up from the ground which limits gardening. Personal Factors Other Personal Factors That May Effect Depression and chronicity of Therapy/Recovery deficits may affect rehab outcomes. PT-OP-C Subjective Start: 01/06/21 12:55 Freq: Status: Active Protocol: Document 01/19/21 15:59 AW (Rec: 01/19/21 16:06 AW [id number]) OP-PT Subjective Patient Comments Patient Comments Pt continues to do pool exercise ~3x/week. Might be interested in trying aquatic therapy. PT-OP-D Balance Start: 01/06/21 12:55 Freq: Status: Active Protocol: Document 01/07/21 09:45 AW (Rec: 01/07/21 10:25 AW [email or web address]) OP-PT Balance Assessment Sitting Balance Static Sitting Balance Ability Normal Dynamic Sitting Balance Ability Normal Standing Balance Static Standing Balance Ability Fair Dynamic Standing Balance Ability Fair Arora Fall Scale Copyright Permission PT-OP-E Functional Tests Start: 01/06/21 12:55 Freq: Status: Active Protocol: Document 01/07/21 09:45 AW (Rec: 01/07/21 10:25 AW [email or web address]) Functional Tests Dynamic Gait Index (DGI) Score 21 DGI Impairment Rating 1 to <20% Impaired (Score 20- 23) Functional Gait Assessment Score 22 Functional Gait Assessment Impairment 20 to <40% Impaired (Score 19- Rating 24) PT-OP-G Mobility & Gait Start: 01/06/21 12:55 Freq: Status: Active Protocol: Document 01/07/21 09:45 AW (Rec: 01/07/21 10:29 AW [email or web address]) OP Mobility Evaluation Bed Mobility Rolling Independent but slow and labored Supine to and from Sit Independent but slow and labored Transfers Sit to Stand Definite use of hands Floor Transfers Great difficulty per pt report . Not assessed. OP Gait Assessment Gait Gait Assistance Required: Independent Distance (Feet) 300 Gait Deviations General Gait Pattern Antalgic,Decreased Feet Clearance,Step-to Gait Factors Limiting Gait Function Factors Limiting Gait Function Decreased Activity Tolerance, Decreased Strength,Limited Range of Motion,Pain,Poor Balance Comments Gait Comments Pt ambulates with forefoot pronation most obvious on right side. Foot scuffs BLE on ~10% of steps indicating poor foot clearance. PT-OP-H Neuro Start: 01/06/21 12:55 Freq: Status: Active Protocol: Document 01/07/21 09:45 AW (Rec: 01/07/21 10:29 AW [email or web address]) Sensation Evaluation Gross Sensation Gross Sensation Left LE Impaired,Right LE Impaired Sensation Description Tingling Comments Summary Comments Tingling reported in bilateral feet - not at all times but more noticable at night. Deep Tendon Reflex & Clonus Assessment Deep Tendon Reflex Bilateral Achilles Deep Tendon Reflex 2+ Normal Bilateral Patellar Deep Tendon Reflex 2+ Normal PT-OP-K Range of Motion Start: 01/06/21 12:55 Freq: Status: Active Protocol: Document 01/07/21 09:45 AW (Rec: 01/07/21 17:15 AW [email or web address]) Ankle and Foot Goniometric Range of Motion Ankle and Foot right Ankle/Foot ROM WFL Yes Testing Position Supine Dorsiflexion with Knee Flexed 20 Plantarflexion 40 Inversion 39 Eversion 20 left Ankle/Foot ROM WFL Yes Testing Position Supine Dorsiflexion with Knee Flexed 20 Plantarflexion 40 Inversion 33 Eversion 18 PT-OP-M Strength Start: 01/06/21 12:55 Freq: Status: Active Protocol: Document 01/07/21 09:45 AW (Rec: 01/07/21 17:15 AW [email or web address]) Hip Strength Hip Manual Muscle Testing bilat Flexion (L2) 4+ Good+ Extension (S1) 4 Good Abduction 4 Good Adduction 4+ Good+ External Rotation 4+ Good+ Internal Rotation 4+ Good+ Knee Strength Knee Manual Muscle Testing bilat Flexion (S2) 4 Good Extension (L3) 4+ Good+ Ankle/Foot Strength Ankle and Foot Manual Muscle Testing bilat Dorsiflexion (L4) 4+ Good+ Inversion 4+ Good+ Eversion (S1) 4+ Good+ Comments Plantar flexion tested in standing. Pt able to complete 5 bilat heel lifts. She was unable to complete unilateral heel lift with quality one time each side. PT-OP-Q Treatments Start: 01/06/21 12:55 Freq: Status: Active Protocol: Document 01/19/21 15:59 AW (Rec: 01/19/21 16:06 AW [id number]) Cardio Equipment Recumbent Bicycle Duration (Minutes) 7 Resistance 3 Seat Position 5 Other able to carry on conversation; consider Therapeutic Exercises Sitting Exercises towel slide - inversion, eversion Sitting Exercise Name towel slide - inversion, eversion Side right long-sitting ankle all planes Sitting Exercise Name long-sitting ankle all planes Side right Resistance TB1 Reps/Minutes 2x10 arch lift Sitting Exercise Name arch lift Side right Comments cues to reduce clawing foot intrinsics Sitting Exercise Name foot intrinsics - towel scrunch, marble package pick up Side right Reps/Minutes 5 min Comments good ROM, fatigues easily Other Exercises sit to stand Other Exercise Name sit to stand Equipment Used std ht chair Reps/Minutes 2x5 Comments UE's reaching forward Manual Therapy Treatment Soft Tissue Mobilization right plantar fascia, calf Body Location R plantar fascia, calf Intensity/Depth Moderate Body Position Hooklying Joint Mobilizations talar glide Joint talar glide Direction A>P Grade III Body Position Supine Comments with active DF, with contract/ relax PF stretch R MTP 1-5 Joint R MTP 1-5 Direction A/P Grade III Body Position Supine Self-Care/Home Management Treatment Education Patient Education Home Exercise Program Other Education Added resisted ankle strength all planes PT-OP-T Assessment and Plan Start: 01/06/21 12:55 Freq: Status: Active Protocol: Document 01/19/21 15:59 AW (Rec: 01/19/21 16:09 AW [email or web address]) Physical Therapy Assessment Goals Five Impairment endurance Impairment Pt lacks tolerance to walk a mile Short Term Goal (STG) Pt will complete 1200 feet on 6MWT with no breaks as a measure of improved walking tolerance. STG Duration 02/11/21 Snf Goal (LTG) Pt will complete 1500 feet on 6MWT with no breaks as a measure of improved walking tolerance and parity with age and gender-matched peers. LTG Duration 04/09/21 Four Impairment strength Impairment unable to squat to work in [employer] Short Term Goal (STG) Pt will complete 10 reps or greater on 30 Second Sit to Stand test without use of hands for improved BLE strength. STG Duration 02/11/21 Snf Goal (LTG) Pt will get up from the floor SBA to improve her ability to participate in gardening activities. LTG Duration 04/09/21 Three Impairment self-efficacy Impairment ABC score 80% Snf Goal (LTG) Pt will improve ABC score to 90% or greater as a measure of improved self-efficacy related to falls risk. LTG Duration 04/09/21 Two Impairment dynamic balance Impairment FGA Snf Goal (LTG) Pt will improve FGA score from 2230 to 27/30 or greater for parity with age-matched peers and as a measure of reduced falls risk. LTG Duration 04/09/21 One Impairment lacks HEP Short Term Goal (STG) Pt will be instructed in progressive HEP for general BLE strengthening. STG Duration 02/11/21 Snf Goal (LTG) Pt will be independent with HEP with possible addition of machine weight exercises for pool/gym workouts. LTG Duration 04/09/21 Assessment Summary Assessment Harleen has been doing HEP about once every other day and appreciates review today. Educated pt on foot/ankle anatomy and arch protection. Initiated ankle strengthening in long-sitting which pt tolerated well. Pt may benefit from aquatic therapy to set up a program which she could follow through with independently. Physical Therapy Plan Frequency and Duration Frequency of Treatment 1-2x/week Duration of Treatment 3 months Plan of Care Start Date 01/07/21 Plan of Care End Date 04/09/21 Therapeutic Interventions Therapeutic Interventions Aquatic Therapy,Balance Training,Gait Training,Home Exercise Program,Manual Therapy,Orthotic/Prosthetic Management,Patient/Caregiver Education,Self-Care/Home Management,Soft Tissue Mobilization,Taping, Therapeutic Activities, Therapeutic Exercises Modalities Cold Pack/Ice Massage,Hot Packs Next Visit Focus/Plan Next Note Type Treatment Note Next Visit Plan Recumbent bike for endurance. Assess response to HEP, progress as able. Initiate standing ther ex if tolerated
--- NOTE | 2021-01-25 12:55 | PT.OTN ---
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) Pain in right foot (01/25/21) Difficulty in walking, not elsewhere classified (01/25/21) Physical Therapy Treatment Note PT-OP-A Visit Information Start: 01/06/21 12:55 Freq: Status: Active Protocol: Document 01/25/21 11:57 MA (Rec: 01/25/21 12:55 MA [id number]) Out-Patient Physical Therapy Visit Information Visit Information Visit Type Treatment Note Visit Start Time 11:58 Visit Stop Time 12:45 Total Visit Minutes 47 Visit Number 4 Number of UTILITY MECHANIC Visits 1 Precautions Precautions osteoporosis PT-OP-B Current Condition Start: 01/06/21 12:55 Freq: Status: Active Protocol: Document 01/07/21 09:45 AW (Rec: 01/06/21 14:33 AW [email or web address]) Current Condition History of Current Condition Onset Date 2 years Current Complaints right foot pain; B knee pain; fear of falling History of Current Condition Harleen used to be more active, including aerobics classes, swimming, and weight room workouts up until a few years ago. She has been less and less active recently. She attributes this to pandemic restrictions but also to right foot pain. She says her right foot arch collapsed 30 years ago without known cause. She wears a custom orthotic in all of her shoes. She is followed by podiatry who agrees her current orthosis is appropriate. She feels terribly weak and is fearful of falling due to osteoporosis . Current activity includes pool exercise three times weekly which is an important social outlet. She belongs to [employer]. She would like to have an appropriate program to use the weight room at the pool. She now finds it difficult to walk longer distances without walking sticks but she is comfortable doing shopping trips without assistive device. She notes her walking is hesitant and slow. Pt denies falls but remains fearful of falling. PMH includes osteoporosis, depression, tinnitus, HTN. Prior Treatments and Tests Pt is followed by podiatry. No prior PT. Future Testing and Treatments Planned None identified Treatment Goals Patient/Caregiver Goals Pt would like to be more comfortable working in the garden. She has difficulty squatting to garden so tends to sit down on the ground but has trouble getting up. She would like to walk farther with less pain. She would like to engage in a weightlifting program. Prior Functional Status Baseline Function- ADL's Independent Baseline Function- Mobility Independent Baseline Function- Gait no AD Current Functional Impairments (Reported) Functional Limitations- ADL's Dressing has become more challenging Functional Limitations- Mobility/Gait Bed mobility and other transitions are difficult. Needs walking sticks for longer distance walking. Functional Limitations- Recreation/ Trouble squatting and getting Hobbies up from the ground which limits gardening. Personal Factors Other Personal Factors That May Effect Depression and chronicity of Therapy/Recovery deficits may affect rehab outcomes. PT-OP-C Subjective Start: 01/06/21 12:55 Freq: Status: Active Protocol: Document 01/25/21 11:57 MA (Rec: 01/25/21 12:55 MA [id number]) OP-PT Subjective Patient Comments Patient Comments Pt states, learning to stand up has been the most important exercise. PT-OP-D Balance Start: 01/06/21 12:55 Freq: Status: Active Protocol: Document 01/07/21 09:45 AW (Rec: 01/07/21 10:25 AW [email or web address]) OP-PT Balance Assessment Sitting Balance Static Sitting Balance Ability Normal Dynamic Sitting Balance Ability Normal Standing Balance Static Standing Balance Ability Fair Dynamic Standing Balance Ability Fair Arora Fall Scale Copyright Permission PT-OP-E Functional Tests Start: 01/06/21 12:55 Freq: Status: Active Protocol: Document 01/07/21 09:45 AW (Rec: 01/07/21 10:25 AW [email or web address]) Functional Tests Dynamic Gait Index (DGI) Score 21 DGI Impairment Rating 1 to <20% Impaired (Score 20- 23) Functional Gait Assessment Score 22 Functional Gait Assessment Impairment 20 to <40% Impaired (Score 19- Rating 24) PT-OP-G Mobility & Gait Start: 01/06/21 12:55 Freq: Status: Active Protocol: Document 01/07/21 09:45 AW (Rec: 01/07/21 10:29 AW [email or web address]) OP Mobility Evaluation Bed Mobility Rolling Independent but slow and labored Supine to and from Sit Independent but slow and labored Transfers Sit to Stand Definite use of hands Floor Transfers Great difficulty per pt report . Not assessed. OP Gait Assessment Gait Gait Assistance Required: Independent Distance (Feet) 300 Gait Deviations General Gait Pattern Antalgic,Decreased Feet Clearance,Step-to Gait Factors Limiting Gait Function Factors Limiting Gait Function Decreased Activity Tolerance, Decreased Strength,Limited Range of Motion,Pain,Poor Balance Comments Gait Comments Pt ambulates with forefoot pronation most obvious on right side. Foot scuffs BLE on ~10% of steps indicating poor foot clearance. PT-OP-H Neuro Start: 01/06/21 12:55 Freq: Status: Active Protocol: Document 01/07/21 09:45 AW (Rec: 01/07/21 10:29 AW [email or web address]) Sensation Evaluation Gross Sensation Gross Sensation Left LE Impaired,Right LE Impaired Sensation Description Tingling Comments Summary Comments Tingling reported in bilateral feet - not at all times but more noticable at night. Deep Tendon Reflex & Clonus Assessment Deep Tendon Reflex Bilateral Achilles Deep Tendon Reflex 2+ Normal Bilateral Patellar Deep Tendon Reflex 2+ Normal PT-OP-K Range of Motion Start: 01/06/21 12:55 Freq: Status: Active Protocol: Document 01/07/21 09:45 AW (Rec: 01/07/21 17:15 AW [email or web address]) Ankle and Foot Goniometric Range of Motion Ankle and Foot right Ankle/Foot ROM WFL Yes Testing Position Supine Dorsiflexion with Knee Flexed 20 Plantarflexion 40 Inversion 39 Eversion 20 left Ankle/Foot ROM WFL Yes Testing Position Supine Dorsiflexion with Knee Flexed 20 Plantarflexion 40 Inversion 33 Eversion 18 PT-OP-M Strength Start: 01/06/21 12:55 Freq: Status: Active Protocol: Document 01/07/21 09:45 AW (Rec: 01/07/21 17:15 AW [email or web address]) Hip Strength Hip Manual Muscle Testing bilat Flexion (L2) 4+ Good+ Extension (S1) 4 Good Abduction 4 Good Adduction 4+ Good+ External Rotation 4+ Good+ Internal Rotation 4+ Good+ Knee Strength Knee Manual Muscle Testing bilat Flexion (S2) 4 Good Extension (L3) 4+ Good+ Ankle/Foot Strength Ankle and Foot Manual Muscle Testing bilat Dorsiflexion (L4) 4+ Good+ Inversion 4+ Good+ Eversion (S1) 4+ Good+ Comments Plantar flexion tested in standing. Pt able to complete 5 bilat heel lifts. She was unable to complete unilateral heel lift with quality one time each side. PT-OP-Q Treatments Start: 01/06/21 12:55 Freq: Status: Active Protocol: Document 01/25/21 11:57 MA (Rec: 01/25/21 12:55 MA [id number]) Cardio Equipment Recumbent Bicycle Duration (Minutes) 7 Resistance 3 Seat Position 5 Other able to carry on conversation; consider Therapeutic Exercises Supine Exercises hip adduction Supine Exercise Name hip adduction with ball Equipment Used sm green ball Reps/Minutes 5SH x 12 supine clam Supine Exercise Name supine clam Side bilateral Resistance TB1 Reps/Minutes 2x12 Comments cued ppt; quality eccentric control Sitting Exercises Self-STM Sitting Exercise Name tennis ball to plantar fascia Side right Reps/Minutes 2' long-sitting ankle all planes Sitting Exercise Name long-sitting ankle all planes Side right Resistance TB1 Reps/Minutes 2x10 arch lift Sitting Exercise Name arch lift- practiced in sitting and standing Side right Comments cues to reduce clawing Standing Exercises Stretch Standing Exercise Name gastroc on stair and staggered stance on floor Side right Reps/Minutes 30 ea Heel Raises Standing Exercise Name From floor Side bilateral Equipment Used mirror Reps/Minutes 2x5 Comments watching in mirror R arch Other Exercises sit to stand Other Exercise Name sit to stand Equipment Used std ht chair Reps/Minutes 2x5 Comments UE's reaching forward Self-Care/Home Management Treatment Education Patient Education Home Exercise Program Other Education added calf stretch either on stair or staggered stance with hands on wall as well as self -STM with tennis ball to plantar fascia PT-OP-T Assessment and Plan Start: 01/06/21 12:55 Freq: Status: Active Protocol: Document 01/25/21 11:57 MA (Rec: 01/25/21 12:55 MA [id number]) Physical Therapy Assessment Goals Five Impairment endurance Impairment Pt lacks tolerance to walk a mile Short Term Goal (STG) Pt will complete 1200 feet on 6MWT with no breaks as a measure of improved walking tolerance. STG Duration 02/11/21 Fdc Goal (LTG) Pt will complete 1500 feet on 6MWT with no breaks as a measure of improved walking tolerance and parity with age and gender-matched peers. LTG Duration 04/09/21 Four Impairment strength Impairment unable to squat to work in garden Short Term Goal (STG) Pt will complete 10 reps or greater on 30 Second Sit to Stand test without use of hands for improved BLE strength. STG Duration 02/11/21 Fdc Goal (LTG) Pt will get up from the floor SBA to improve her ability to participate in gardening activities. LTG Duration 04/09/21 Three Impairment self-efficacy Impairment ABC score 80% Fdc Goal (LTG) Pt will improve ABC score to 90% or greater as a measure of improved self-efficacy related to falls risk. LTG Duration 04/09/21 Two Impairment dynamic balance Impairment FGA Lapping Machine Operator Goal (LTG) Pt will improve FGA score from 22 to 27/30 or greater for parity with age-matched peers and as a measure of reduced falls risk. LTG Duration 04/09/21 One Impairment lacks HEP Short Term Goal (STG) Pt will be instructed in progressive HEP for general BLE strengthening. STG Duration 02/11/21 Fdc Goal (LTG) Pt will be independent with HEP with possible addition of machine weight exercises for pool/gym workouts. LTG Duration 04/09/21 Assessment Summary Assessment Pt tends to cesar R foot during sit<>stands; worked on sit<>stands infront of mirror starting with arch lift in seated and trying to hold arch lift for full sit<>stand. Continued having pt perform activities in front of mirror for feedback with pt practicing heel raises and arch lifts in standing. Pt has minor c/o pain in ball of foot and arch tiredness. Instructed pt on self-STM of plantar fascia with tennis ball for HEP as well as gastroc and soleus stretches in standing using stair and in staggered stance. Pt would continue to benefit from skilled therapy for improving intrinsic foot strength to improve ankle/foot positioning to decrease R foot & knee pain. Physical Therapy Plan Frequency and Duration Frequency of Treatment 1-2x/week Duration of Treatment 3 months Plan of Care Start Date 01/07/21 Plan of Care End Date 04/09/21 Therapeutic Interventions Therapeutic Interventions Aquatic Therapy,Balance Training,Gait Training,Home Exercise Program,Manual Therapy,Orthotic/Prosthetic Management,Patient/Caregiver Education,Self-Care/Home Management,Soft Tissue Mobilization,Taping, Therapeutic Activities, Therapeutic Exercises Modalities Cold Pack/Ice Massage,Hot Packs Next Visit Focus/Plan Next Note Type Treatment Note Next Visit Plan continue with standing ther ex in mirror for self-feedback Recumbent bike for endurance. Assess response to HEP, progress as able. Initiate standing ther ex if tolerated
--- NOTE | 2021-01-28 09:54 | PT.OTN ---
Current Diagnoses Other specified phobia (01/28/21) Pain in right foot (01/28/21) Difficulty in walking, not elsewhere classified (01/28/21) Physical Therapy Treatment Note PT-OP-A Visit Information Start: 01/06/21 12:55 Freq: Status: Active Protocol: Document 01/28/21 09:06 LRN (Rec: 01/28/21 09:53 LRN [id number]) Out-Patient Physical Therapy Visit Information Visit Information Visit Type Treatment Note Visit Start Time 09:06 Visit Stop Time 09:47 Total Visit Minutes 41 Visit Number 5 Precautions Precautions osteoporosis PT-OP-B Current Condition Start: 01/06/21 12:55 Freq: Status: Active Protocol: Document 01/07/21 09:45 AW (Rec: 01/06/21 14:33 AW [email or web address]) Current Condition History of Current Condition Onset Date 2 years Current Complaints right foot pain; B knee pain; fear of falling History of Current Condition Harleen used to be more active, including aerobics classes, swimming, and weight room workouts up until a few years ago. She has been less and less active recently. She attributes this to pandemic restrictions but also to right foot pain. She says her right foot arch collapsed 30 years ago without known cause. She wears a custom orthotic in all of her shoes. She is followed by podiatry who agrees her current orthosis is appropriate. She feels terribly weak and is fearful of falling due to osteoporosis . Current activity includes pool exercise three times weekly which is an important social outlet. She belongs to [employer]. She would like to have an appropriate program to use the weight room at the pool. She now finds it difficult to walk longer distances without walking sticks but she is comfortable doing shopping trips without assistive device. She notes her walking is hesitant and slow. Pt denies falls but remains fearful of falling. PMH includes osteoporosis, depression, tinnitus, HTN. Prior Treatments and Tests Pt is followed by podiatry. No prior PT. Future Testing and Treatments Planned None identified Treatment Goals Patient/Caregiver Goals Pt would like to be more comfortable working in the garden. She has difficulty squatting to garden so tends to sit down on the ground but has trouble getting up. She would like to walk farther with less pain. She would like to engage in a weightlifting program. Prior Functional Status Baseline Function- ADL's Independent Baseline Function- Mobility Independent Baseline Function- Gait no AD Current Functional Impairments (Reported) Functional Limitations- ADL's Dressing has become more challenging Functional Limitations- Mobility/Gait Bed mobility and other transitions are difficult. Needs walking sticks for longer distance walking. Functional Limitations- Recreation/ Trouble squatting and getting Hobbies up from the ground which limits gardening. Personal Factors Other Personal Factors That May Effect Depression and chronicity of Therapy/Recovery deficits may affect rehab outcomes. PT-OP-C Subjective Start: 01/06/21 12:55 Freq: Status: Active Protocol: Document 01/28/21 09:06 LRN (Rec: 01/28/21 09:53 LRN [id number]) OP-PT Subjective Patient Comments Patient Comments Has 12 ankle ex's at home. PT-OP-D Balance Start: 01/06/21 12:55 Freq: Status: Active Protocol: Document 01/07/21 09:45 AW (Rec: 01/07/21 10:25 AW [email or web address]) OP-PT Balance Assessment Sitting Balance Static Sitting Balance Ability Normal Dynamic Sitting Balance Ability Normal Standing Balance Static Standing Balance Ability Fair Dynamic Standing Balance Ability Fair Arora Fall Scale Copyright Permission PT-OP-E Functional Tests Start: 01/06/21 12:55 Freq: Status: Active Protocol: Document 01/07/21 09:45 AW (Rec: 01/07/21 10:25 AW [email or web address]) Functional Tests Dynamic Gait Index (DGI) Score 21 DGI Impairment Rating 1 to <20% Impaired (Score 20- 23) Functional Gait Assessment Score 22 Functional Gait Assessment Impairment 20 to <40% Impaired (Score 19- Rating 24) PT-OP-G Mobility & Gait Start: 01/06/21 12:55 Freq: Status: Active Protocol: Document 01/07/21 09:45 AW (Rec: 01/07/21 10:29 AW [email or web address]) OP Mobility Evaluation Bed Mobility Rolling Independent but slow and labored Supine to and from Sit Independent but slow and labored Transfers Sit to Stand Definite use of hands Floor Transfers Great difficulty per pt report . Not assessed. OP Gait Assessment Gait Gait Assistance Required: Independent Distance (Feet) 300 Gait Deviations General Gait Pattern Antalgic,Decreased Feet Clearance,Step-to Gait Factors Limiting Gait Function Factors Limiting Gait Function Decreased Activity Tolerance, Decreased Strength,Limited Range of Motion,Pain,Poor Balance Comments Gait Comments Pt ambulates with forefoot pronation most obvious on right side. Foot scuffs BLE on ~10% of steps indicating poor foot clearance. PT-OP-H Neuro Start: 01/06/21 12:55 Freq: Status: Active Protocol: Document 01/07/21 09:45 AW (Rec: 01/07/21 10:29 AW [email or web address]) Sensation Evaluation Gross Sensation Gross Sensation Left LE Impaired,Right LE Impaired Sensation Description Tingling Comments Summary Comments Tingling reported in bilateral feet - not at all times but more noticable at night. Deep Tendon Reflex & Clonus Assessment Deep Tendon Reflex Bilateral Achilles Deep Tendon Reflex 2+ Normal Bilateral Patellar Deep Tendon Reflex 2+ Normal PT-OP-K Range of Motion Start: 01/06/21 12:55 Freq: Status: Active Protocol: Document 01/07/21 09:45 AW (Rec: 01/07/21 17:15 AW [email or web address]) Ankle and Foot Goniometric Range of Motion Ankle and Foot right Ankle/Foot ROM WFL Yes Testing Position Supine Dorsiflexion with Knee Flexed 20 Plantarflexion 40 Inversion 39 Eversion 20 left Ankle/Foot ROM WFL Yes Testing Position Supine Dorsiflexion with Knee Flexed 20 Plantarflexion 40 Inversion 33 Eversion 18 PT-OP-M Strength Start: 01/06/21 12:55 Freq: Status: Active Protocol: Document 01/07/21 09:45 AW (Rec: 01/07/21 17:15 AW [email or web address]) Hip Strength Hip Manual Muscle Testing bilat Flexion (L2) 4+ Good+ Extension (S1) 4 Good Abduction 4 Good Adduction 4+ Good+ External Rotation 4+ Good+ Internal Rotation 4+ Good+ Knee Strength Knee Manual Muscle Testing bilat Flexion (S2) 4 Good Extension (L3) 4+ Good+ Ankle/Foot Strength Ankle and Foot Manual Muscle Testing bilat Dorsiflexion (L4) 4+ Good+ Inversion 4+ Good+ Eversion (S1) 4+ Good+ Comments Plantar flexion tested in standing. Pt able to complete 5 bilat heel lifts. She was unable to complete unilateral heel lift with quality one time each side. PT-OP-Q Treatments Start: 01/06/21 12:55 Freq: Status: Active Protocol: Document 01/28/21 09:06 LRN (Rec: 01/28/21 09:53 LRN [id number]) Cardio Equipment Recumbent Stepper (Sci-Fit) Duration (Minutes) 4 Resistance 2 Seat Position 12 Recumbent Bicycle Duration (Minutes) 7 Resistance 3 Seat Position 6 Other able to carry on conversation; consider Therapeutic Exercises Sitting Exercises Ankle IV Sitting Exercise Name Ankle IV strengthening Side right Equipment Used Lev 1 TB Reps/Minutes 15x 2 Comments Much cuing needed for proper ex performance and max resistance. arch lift Sitting Exercise Name arch lift- sitting and standing Side right Comments cues to reduce clawing and keeping 1st MTP jt on floor. Standing Exercises Arch lift Standing Exercise Name With arch support: Arch lifts Side right Reps/Minutes 1 H x 5, 5 H x 10 Comments Extra time for cuing of keeping Big toe MTP jt on floor with lift Stretch Standing Exercise Name Gastroc on stair and standing staggered stance Side bilateral Reps/Minutes 1' each Heel Raises Standing Exercise Name From floor Side bilateral Equipment Used mirror Reps/Minutes 10 H x 10 Comments watching in mirror to keep R arch & Big toe MTP on floor. Other Exercises sit to stand Other Exercise Name sit to stand Equipment Used std ht chair Reps/Minutes 10x Comments UE's reaching forward Self-Care/Home Management Treatment Education Patient Education Home Exercise Program Activities Self-Care/Home Management Activities HEP issued & reviewed: Ankle IV strengthening with TBand. PT-OP-T Assessment and Plan Start: 01/06/21 12:55 Freq: Status: Active Protocol: Document 01/28/21 09:06 LRN (Rec: 01/28/21 09:53 LRN [id number]) Physical Therapy Assessment Goals Five Impairment endurance Impairment Pt lacks tolerance to walk a mile Short Term Goal (STG) Pt will complete 1200 feet on 6MWT with no breaks as a measure of improved walking tolerance. STG Duration 02/11/21 [facility] Nurse Goal (LTG) Pt will complete 1500 feet on 6MWT with no breaks as a measure of improved walking tolerance and parity with age and gender-matched peers. LTG Duration 04/09/21 Four Impairment strength Impairment unable to squat to work in garden Short Term Goal (STG) Pt will complete 10 reps or greater on 30 Second Sit to Stand test without use of hands for improved BLE strength. STG Duration 02/11/21 Mcc Goal (LTG) Pt will get up from the floor SBA to improve her ability to participate in gardening activities. LTG Duration 04/09/21 Three Impairment self-efficacy Impairment ABC score 80% Mcc Goal (LTG) Pt will improve ABC score to 90% or greater as a measure of improved self-efficacy related to falls risk. LTG Duration 04/09/21 Two Impairment dynamic balance Impairment FGA 30 Mcc Goal (LTG) Pt will improve FGA score from 2230 to 27/30 or greater for parity with age-matched peers and as a measure of reduced falls risk. LTG Duration 04/09/21 One Impairment lacks HEP Short Term Goal (STG) Pt will be instructed in progressive HEP for general BLE strengthening. STG Duration 02/11/21 [facility] Nurse Goal (LTG) Pt will be independent with HEP with possible addition of machine weight exercises for pool/gym workouts. LTG Duration 04/09/21 Progress Towards Goals Progress Comments HEP progressed. Assessment Summary Assessment Pt had increased R foot pain with recumbent bike, but much less with use of SciFit. PT able to do plantar arch lift after training of keeping 1st toe MTP jt on floor and keeping foot in good alignment . Physical Therapy Plan Frequency and Duration Frequency of Treatment 1-2x/week Duration of Treatment 3 months Plan of Care Start Date 01/07/21 Plan of Care End Date 04/09/21 Next Visit Focus/Plan Next Note Type Treatment Note Next Visit Plan Review issued HEP (ankle IV) & continue with standing ther ex in mirror for self-feedback Recumbent stepper for endurance. Progress as able. Initiate standing ther ex if tolerated.
--- NOTE | 2021-02-01 12:54 | PT.OTN ---
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) Pain in right foot (02/01/21) Difficulty in walking, not elsewhere classified (02/01/21) Physical Therapy Treatment Note PT-OP-A Visit Information Start: 01/06/21 12:55 Freq: Status: Active Protocol: Document 02/01/21 11:59 MA (Rec: 02/01/21 12:53 MA [id number]) Out-Patient Physical Therapy Visit Information Visit Information Visit Type Treatment Note Visit Start Time 12:00 Visit Stop Time 12:45 Total Visit Minutes 45 Visit Number 6 Number of EARLY INTERVENTION SPECIALIST Visits 1 Precautions Precautions osteoporosis PT-OP-B Current Condition Start: 01/06/21 12:55 Freq: Status: Active Protocol: Document 01/07/21 09:45 AW (Rec: 01/06/21 14:33 AW [email or web address]) Current Condition History of Current Condition Onset Date 2 years Current Complaints right foot pain; B knee pain; fear of falling History of Current Condition Harleen used to be more active, including aerobics classes, swimming, and weight room workouts up until a few years ago. She has been less and less active recently. She attributes this to pandemic restrictions but also to right foot pain. She says her right foot arch collapsed 30 years ago without known cause. She wears a custom orthotic in all of her shoes. She is followed by podiatry who agrees her current orthosis is appropriate. She feels terribly weak and is fearful of falling due to osteoporosis . Current activity includes pool exercise three times weekly which is an important social outlet. She belongs to [employer]. She would like to have an appropriate program to use the weight room at the pool. She now finds it difficult to walk longer distances without walking sticks but she is comfortable doing shopping trips without assistive device. She notes her walking is hesitant and slow. Pt denies falls but remains fearful of falling. PMH includes osteoporosis, depression, tinnitus, HTN. Prior Treatments and Tests Pt is followed by podiatry. No prior PT. Future Testing and Treatments Planned None identified Treatment Goals Patient/Caregiver Goals Pt would like to be more comfortable working in the garden. She has difficulty squatting to garden so tends to sit down on the ground but has trouble getting up. She would like to walk farther with less pain. She would like to engage in a weightlifting program. Prior Functional Status Baseline Function- ADL's Independent Baseline Function- Mobility Independent Baseline Function- Gait no AD Current Functional Impairments (Reported) Functional Limitations- ADL's Dressing has become more challenging Functional Limitations- Mobility/Gait Bed mobility and other transitions are difficult. Needs walking sticks for longer distance walking. Functional Limitations- Recreation/ Trouble squatting and getting Hobbies up from the ground which limits gardening. Personal Factors Other Personal Factors That May Effect Depression and chronicity of Therapy/Recovery deficits may affect rehab outcomes. PT-OP-C Subjective Start: 01/06/21 12:55 Freq: Status: Active Protocol: Document 02/01/21 11:59 MA (Rec: 02/01/21 12:53 MA [id number]) OP-PT Subjective Patient Comments Patient Comments Pt admits she has not been doing her HEP recently. She states she doesn't even really have an excuse, she just hasn 't done them. She also hasn't been up and walking much recently PT-OP-D Balance Start: 01/06/21 12:55 Freq: Status: Active Protocol: Document 01/07/21 09:45 AW (Rec: 01/07/21 10:25 AW [email or web address]) OP-PT Balance Assessment Sitting Balance Static Sitting Balance Ability Normal Dynamic Sitting Balance Ability Normal Standing Balance Static Standing Balance Ability Fair Dynamic Standing Balance Ability Fair Arora Fall Scale Copyright Permission PT-OP-E Functional Tests Start: 01/06/21 12:55 Freq: Status: Active Protocol: Document 01/07/21 09:45 AW (Rec: 01/07/21 10:25 AW [email or web address]) Functional Tests Dynamic Gait Index (DGI) Score 21 DGI Impairment Rating 1 to <20% Impaired (Score 20- 23) Functional Gait Assessment Score 22 Functional Gait Assessment Impairment 20 to <40% Impaired (Score 19- Rating 24) PT-OP-G Mobility & Gait Start: 01/06/21 12:55 Freq: Status: Active Protocol: Document 01/07/21 09:45 AW (Rec: 01/07/21 10:29 AW [email or web address]) OP Mobility Evaluation Bed Mobility Rolling Independent but slow and labored Supine to and from Sit Independent but slow and labored Transfers Sit to Stand Definite use of hands Floor Transfers Great difficulty per pt report . Not assessed. OP Gait Assessment Gait Gait Assistance Required: Independent Distance (Feet) 300 Gait Deviations General Gait Pattern Antalgic,Decreased Feet Clearance,Step-to Gait Factors Limiting Gait Function Factors Limiting Gait Function Decreased Activity Tolerance, Decreased Strength,Limited Range of Motion,Pain,Poor Balance Comments Gait Comments Pt ambulates with forefoot pronation most obvious on right side. Foot scuffs BLE on ~10% of steps indicating poor foot clearance. PT-OP-H Neuro Start: 01/06/21 12:55 Freq: Status: Active Protocol: Document 01/07/21 09:45 AW (Rec: 01/07/21 10:29 AW [email or web address]) Sensation Evaluation Gross Sensation Gross Sensation Left LE Impaired,Right LE Impaired Sensation Description Tingling Comments Summary Comments Tingling reported in bilateral feet - not at all times but more noticable at night. Deep Tendon Reflex & Clonus Assessment Deep Tendon Reflex Bilateral Achilles Deep Tendon Reflex 2+ Normal Bilateral Patellar Deep Tendon Reflex 2+ Normal PT-OP-K Range of Motion Start: 01/06/21 12:55 Freq: Status: Active Protocol: Document 01/07/21 09:45 AW (Rec: 01/07/21 17:15 AW [email or web address]) Ankle and Foot Goniometric Range of Motion Ankle and Foot right Ankle/Foot ROM WFL Yes Testing Position Supine Dorsiflexion with Knee Flexed 20 Plantarflexion 40 Inversion 39 Eversion 20 left Ankle/Foot ROM WFL Yes Testing Position Supine Dorsiflexion with Knee Flexed 20 Plantarflexion 40 Inversion 33 Eversion 18 PT-OP-M Strength Start: 01/06/21 12:55 Freq: Status: Active Protocol: Document 01/07/21 09:45 AW (Rec: 01/07/21 17:15 AW [email or web address]) Hip Strength Hip Manual Muscle Testing bilat Flexion (L2) 4+ Good+ Extension (S1) 4 Good Abduction 4 Good Adduction 4+ Good+ External Rotation 4+ Good+ Internal Rotation 4+ Good+ Knee Strength Knee Manual Muscle Testing bilat Flexion (S2) 4 Good Extension (L3) 4+ Good+ Ankle/Foot Strength Ankle and Foot Manual Muscle Testing bilat Dorsiflexion (L4) 4+ Good+ Inversion 4+ Good+ Eversion (S1) 4+ Good+ Comments Plantar flexion tested in standing. Pt able to complete 5 bilat heel lifts. She was unable to complete unilateral heel lift with quality one time each side. PT-OP-Q Treatments Start: 01/06/21 12:55 Freq: Status: Active Protocol: Document 02/01/21 11:59 MA (Rec: 02/01/21 12:53 MA [id number]) Cardio Equipment Recumbent Stepper (Sci-Fit) Duration (Minutes) 6 Resistance 2 Seat Position 12 Therapeutic Exercises Sitting Exercises long-sitting ankle all planes Sitting Exercise Name long-sitting ankle all planes Side right Resistance TB1 Reps/Minutes 2x10 arch lift Sitting Exercise Name arch lift- sitting and standing Side right Comments cues to reduce clawing and keeping 1st MTP jt on floor. foot intrinsics Sitting Exercise Name foot intrinsics - towel scrunch, marble bean picker Side right Reps/Minutes 5 min Comments good ROM, fatigues easily Standing Exercises Arch lift Standing Exercise Name With arch support: Arch lifts Side right Reps/Minutes 1 H x 5, 5 H x 10 Comments Extra time for cuing of keeping Big toe MTP jt on floor with lift Stretch Standing Exercise Name Gastroc on stair and standing staggered stance Side bilateral Reps/Minutes 1' each Heel Raises Standing Exercise Name From floor Side bilateral Equipment Used mirror Reps/Minutes 10 H x 10 Comments watching in mirror to keep R arch & Big toe MTP on floor. Other Exercises sit to stand Other Exercise Name sit to stand Equipment Used std ht chair Reps/Minutes 10x Comments marble under R arch for external cue PT-OP-T Assessment and Plan Start: 01/06/21 12:55 Freq: Status: Active Protocol: Document 02/01/21 11:59 MA (Rec: 02/01/21 12:53 MA [id number]) Physical Therapy Assessment Goals Five Impairment endurance Impairment Pt lacks tolerance to walk a mile Short Term Goal (STG) Pt will complete 1200 feet on 6MWT with no breaks as a measure of improved walking tolerance. STG Duration 02/11/21 Trackless Trolley Driver Goal (LTG) Pt will complete 1500 feet on 6MWT with no breaks as a measure of improved walking tolerance and parity with age and gender-matched peers. LTG Duration 04/09/21 Four Impairment strength Impairment unable to squat to work in garden Short Term Goal (STG) Pt will complete 10 reps or greater on 30 Second Sit to Stand test without use of hands for improved BLE strength. STG Duration 02/11/21 Alf Goal (LTG) Pt will get up from the floor SBA to improve her ability to participate in gardening activities. LTG Duration 04/09/21 Three Impairment self-efficacy Impairment ABC score 80% Alf Goal (LTG) Pt will improve ABC score to 90% or greater as a measure of improved self-efficacy related to falls risk. LTG Duration 04/09/21 Two Impairment dynamic balance Impairment FGA 22/30 Trackless Trolley Driver Goal (LTG) Pt will improve FGA score from 22/30 to 27/30 or greater for parity with age-matched peers and as a measure of reduced falls risk. LTG Duration 04/09/21 One Impairment lacks HEP Short Term Goal (STG) Pt will be instructed in progressive HEP for general BLE strengthening. STG Duration 02/11/21 Alf Goal (LTG) Pt will be independent with HEP with possible addition of machine weight exercises for pool/gym workouts. LTG Duration 04/09/21 Assessment Summary Assessment Pt does well with self- correcting R ankle/foot positioning when allowed to use mirror. Placed marble under arch of R foot as external cue during sit<> stands and heel raises to avoid pronation of R foot. Pt was concerned she felt exercises more in leg than in foot. Educated pt on mms of foot/ankle. Discussed taping for arch support next session with pt agreeing that she has had that previously and feels it helped her and will motivate her to walk more if she feels more support. Physical Therapy Plan Frequency and Duration Frequency of Treatment 1-2x/week Duration of Treatment 3 months Plan of Care Start Date 01/07/21 Plan of Care End Date 04/09/21 Therapeutic Interventions Therapeutic Interventions Aquatic Therapy,Balance Training,Gait Training,Home Exercise Program,Manual Therapy,Orthotic/Prosthetic Management,Patient/Caregiver Education,Self-Care/Home Management,Soft Tissue Mobilization,Taping, Therapeutic Activities, Therapeutic Exercises Modalities Cold Pack/Ice Massage,Hot Packs Next Visit Focus/Plan Next Note Type Treatment Note Next Visit Plan KT tape for R arch support- teach pt how to tape Review issued HEP (ankle IV) & continue with standing ther ex in mirror for self-feedback Recumbent stepper for endurance. Progress as able. Initiate standing ther ex if tolerated.
--- NOTE | 2021-02-03 12:16 | PT.OTN ---
Current Diagnoses Other specified phobia (02/03/21) Pain in right foot (02/03/21) Difficulty in walking, not elsewhere classified (02/03/21) Physical Therapy Treatment Note PT-OP-A Visit Information Start: 01/06/21 12:55 Freq: Status: Active Protocol: Document 02/03/21 09:45 AW (Rec: 02/03/21 09:45 AW [id number]) Out-Patient Physical Therapy Visit Information Visit Information Visit Type Treatment Note Visit Start Time 09:00 Visit Stop Time 09:45 Total Visit Minutes 45 Visit Number 7 Number of LEAF TINNER Visits 0 Precautions Precautions osteoporosis PT-OP-B Current Condition Start: 01/06/21 12:55 Freq: Status: Active Protocol: Document 01/07/21 09:45 AW (Rec: 01/06/21 14:33 AW [email or web address]) Current Condition History of Current Condition Onset Date 2 years Current Complaints right foot pain; B knee pain; fear of falling History of Current Condition Harleen used to be more active, including aerobics classes, swimming, and weight room workouts up until a few years ago. She has been less and less active recently. She attributes this to pandemic restrictions but also to right foot pain. She says her right foot arch collapsed 30 years ago without known cause. She wears a custom orthotic in all of her shoes. She is followed by podiatry who agrees her current orthosis is appropriate. She feels terribly weak and is fearful of falling due to osteoporosis . Current activity includes pool exercise three times weekly which is an important social outlet. She belongs to [employer]. She would like to have an appropriate program to use the weight room at the pool. She now finds it difficult to walk longer distances without walking sticks but she is comfortable doing shopping trips without assistive device. She notes her walking is hesitant and slow. Pt denies falls but remains fearful of falling. PMH includes osteoporosis, depression, tinnitus, HTN. Prior Treatments and Tests Pt is followed by podiatry. No prior PT. Future Testing and Treatments Planned None identified Treatment Goals Patient/Caregiver Goals Pt would like to be more comfortable working in the garden. She has difficulty squatting to garden so tends to sit down on the ground but has trouble getting up. She would like to walk farther with less pain. She would like to engage in a weightlifting program. Prior Functional Status Baseline Function- ADL's Independent Baseline Function- Mobility Independent Baseline Function- Gait no AD Current Functional Impairments (Reported) Functional Limitations- ADL's Dressing has become more challenging Functional Limitations- Mobility/Gait Bed mobility and other transitions are difficult. Needs walking sticks for longer distance walking. Functional Limitations- Recreation/ Trouble squatting and getting Hobbies up from the ground which limits gardening. Personal Factors Other Personal Factors That May Effect Depression and chronicity of Therapy/Recovery deficits may affect rehab outcomes. PT-OP-C Subjective Start: 01/06/21 12:55 Freq: Status: Active Protocol: Document 02/03/21 09:45 AW (Rec: 02/03/21 09:45 AW [id number]) OP-PT Subjective Patient Comments Patient Comments Just got out of the pool as she arrives today. It's more social than energetic but I enjoy it. Pt pledges she will do her exercises the next four days in a row. PT-OP-D Balance Start: 01/06/21 12:55 Freq: Status: Active Protocol: Document 01/07/21 09:45 AW (Rec: 01/07/21 10:25 AW [email or web address]) OP-PT Balance Assessment Sitting Balance Static Sitting Balance Ability Normal Dynamic Sitting Balance Ability Normal Standing Balance Static Standing Balance Ability Fair Dynamic Standing Balance Ability Fair Arora Fall Scale Copyright Permission PT-OP-E Functional Tests Start: 01/06/21 12:55 Freq: Status: Active Protocol: Document 01/07/21 09:45 AW (Rec: 01/07/21 10:25 AW [email or web address]) Functional Tests Dynamic Gait Index (DGI) Score 21 DGI Impairment Rating 1 to <20% Impaired (Score 20- 23) Functional Gait Assessment Score 22 Functional Gait Assessment Impairment 20 to <40% Impaired (Score 19- Rating 24) PT-OP-G Mobility & Gait Start: 01/06/21 12:55 Freq: Status: Active Protocol: Document 01/07/21 09:45 AW (Rec: 01/07/21 10:29 AW [email or web address]) OP Mobility Evaluation Bed Mobility Rolling Independent but slow and labored Supine to and from Sit Independent but slow and labored Transfers Sit to Stand Definite use of hands Floor Transfers Great difficulty per pt report . Not assessed. OP Gait Assessment Gait Gait Assistance Required: Independent Distance (Feet) 300 Gait Deviations General Gait Pattern Antalgic,Decreased Feet Clearance,Step-to Gait Factors Limiting Gait Function Factors Limiting Gait Function Decreased Activity Tolerance, Decreased Strength,Limited Range of Motion,Pain,Poor Balance Comments Gait Comments Pt ambulates with forefoot pronation most obvious on right side. Foot scuffs BLE on ~10% of steps indicating poor foot clearance. PT-OP-H Neuro Start: 01/06/21 12:55 Freq: Status: Active Protocol: Document 01/07/21 09:45 AW (Rec: 01/07/21 10:29 AW [email or web address]) Sensation Evaluation Gross Sensation Gross Sensation Left LE Impaired,Right LE Impaired Sensation Description Tingling Comments Summary Comments Tingling reported in bilateral feet - not at all times but more noticable at night. Deep Tendon Reflex & Clonus Assessment Deep Tendon Reflex Bilateral Achilles Deep Tendon Reflex 2+ Normal Bilateral Patellar Deep Tendon Reflex 2+ Normal PT-OP-K Range of Motion Start: 01/06/21 12:55 Freq: Status: Active Protocol: Document 01/07/21 09:45 AW (Rec: 01/07/21 17:15 AW [email or web address]) Ankle and Foot Goniometric Range of Motion Ankle and Foot right Ankle/Foot ROM WFL Yes Testing Position Supine Dorsiflexion with Knee Flexed 20 Plantarflexion 40 Inversion 39 Eversion 20 left Ankle/Foot ROM WFL Yes Testing Position Supine Dorsiflexion with Knee Flexed 20 Plantarflexion 40 Inversion 33 Eversion 18 PT-OP-M Strength Start: 01/06/21 12:55 Freq: Status: Active Protocol: Document 01/07/21 09:45 AW (Rec: 01/07/21 17:15 AW [email or web address]) Hip Strength Hip Manual Muscle Testing bilat Flexion (L2) 4+ Good+ Extension (S1) 4 Good Abduction 4 Good Adduction 4+ Good+ External Rotation 4+ Good+ Internal Rotation 4+ Good+ Knee Strength Knee Manual Muscle Testing bilat Flexion (S2) 4 Good Extension (L3) 4+ Good+ Ankle/Foot Strength Ankle and Foot Manual Muscle Testing bilat Dorsiflexion (L4) 4+ Good+ Inversion 4+ Good+ Eversion (S1) 4+ Good+ Comments Plantar flexion tested in standing. Pt able to complete 5 bilat heel lifts. She was unable to complete unilateral heel lift with quality one time each side. PT-OP-Q Treatments Start: 01/06/21 12:55 Freq: Status: Active Protocol: Document 02/03/21 09:45 AW (Rec: 02/03/21 09:45 AW [id number]) Cardio Equipment Recumbent Bicycle Duration (Minutes) 7 Resistance 3 Seat Position 5 Other able to carry on conversation Gym Equipment Shuttle Balance WBOS, NBOS Details blue clips Reps/Duration 5 min Comments for stability and balance Therapeutic Exercises Sitting Exercises isometric ankle inversion Sitting Exercise Name isometric ankle inversion Side right Equipment Used small orange ball Reps/Minutes 5SH x 15 Comments long-sitting arch lift Sitting Exercise Name arch lift- sitting and standing Side right Comments mirror helpful for self- feedback 1st MTP position foot intrinsics Sitting Exercise Name foot intrinsics - towel scrunch, marble crab picker Side right Reps/Minutes 5 min Comments good ROM, fatigues easily Standing Exercises Stretch Standing Exercise Name Gastroc on stair and standing staggered stance Side bilateral Reps/Minutes 1' each Heel Raises Standing Exercise Name From floor Side bilateral Equipment Used mirror Reps/Minutes 10 H x 10 Comments progressed to mini squat + heel lift PT-OP-T Assessment and Plan Start: 01/06/21 12:55 Freq: Status: Active Protocol: Document 02/03/21 09:45 AW (Rec: 02/03/21 12:15 AW [email or web address]) Physical Therapy Assessment Goals Five Impairment endurance Impairment Pt lacks tolerance to walk a mile Short Term Goal (STG) Pt will complete 1200 feet on 6MWT with no breaks as a measure of improved walking tolerance. STG Duration 02/11/21 Cane Splicer Goal (LTG) Pt will complete 1500 feet on 6MWT with no breaks as a measure of improved walking tolerance and parity with age and gender-matched peers. LTG Duration 04/09/21 Four Impairment strength Impairment unable to squat to work in garden Short Term Goal (STG) Pt will complete 10 reps or greater on 30 Second Sit to Stand test without use of hands for improved BLE strength. STG Duration 02/11/21 Fdc Goal (LTG) Pt will get up from the floor SBA to improve her ability to participate in gardening activities. LTG Duration 04/09/21 Three Impairment self-efficacy Impairment ABC score 80% Cane Splicer Goal (LTG) Pt will improve ABC score to 90% or greater as a measure of improved self-efficacy related to falls risk. LTG Duration 04/09/21 Two Impairment dynamic balance Impairment FGA 22/30 Fdc Goal (LTG) Pt will improve FGA score from 22/30 to 27/30 or greater for parity with age-matched peers and as a measure of reduced falls risk. LTG Duration 04/09/21 One Impairment lacks HEP Short Term Goal (STG) Pt will be instructed in progressive HEP for general BLE strengthening. STG Duration 02/11/21 Fdc Goal (LTG) Pt will be independent with HEP with possible addition of machine weight exercises for pool/gym workouts. LTG Duration 04/09/21 Assessment Summary Assessment Pt has improved awareness of foot posture. Offered taping today but pt has a pedicure appointment later today so deferred until next time. Physical Therapy Plan Frequency and Duration Frequency of Treatment 1-2x/week Duration of Treatment 3 months Plan of Care Start Date 01/07/21 Plan of Care End Date 04/09/21 Therapeutic Interventions Therapeutic Interventions Aquatic Therapy,Balance Training,Gait Training,Home Exercise Program,Manual Therapy,Orthotic/Prosthetic Management,Patient/Caregiver Education,Self-Care/Home Management,Soft Tissue Mobilization,Taping, Therapeutic Activities, Therapeutic Exercises Modalities Cold Pack/Ice Massage,Hot Packs Next Visit Focus/Plan Next Note Type Treatment Note Next Visit Plan KT tape for R arch support- teach pt how to tape Review issued HEP (ankle IV) & continue with standing ther ex in mirror for self-feedback Recumbent stepper for endurance. Progress as able. Initiate standing ther ex if tolerated.
--- NOTE | 2021-02-16 10:29 | PT.OTN ---
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) Pain in right foot (02/16/21) Difficulty in walking, not elsewhere classified (02/16/21) Physical Therapy Treatment Note PT-OP-A Visit Information Start: 01/06/21 12:55 Freq: Status: Active Protocol: Document 02/16/21 10:25 AW (Rec: 02/16/21 10:26 AW [id number]) Out-Patient Physical Therapy Visit Information Visit Information Visit Type Treatment Note Visit Start Time 09:45 Visit Stop Time 10:25 Total Visit Minutes 40 Visit Number 8 Number of CORE BLOWER OPERATOR Visits 0 Precautions Precautions osteoporosis PT-OP-B Current Condition Start: 01/06/21 12:55 Freq: Status: Active Protocol: Document 01/07/21 09:45 AW (Rec: 01/06/21 14:33 AW [email or web address]) Current Condition History of Current Condition Onset Date 2 years Current Complaints right foot pain; B knee pain; fear of falling History of Current Condition Harleen used to be more active, including aerobics classes, swimming, and weight room workouts up until a few years ago. She has been less and less active recently. She attributes this to pandemic restrictions but also to right foot pain. She says her right foot arch collapsed 30 years ago without known cause. She wears a custom orthotic in all of her shoes. She is followed by podiatry who agrees her current orthosis is appropriate. She feels terribly weak and is fearful of falling due to osteoporosis . Current activity includes pool exercise three times weekly which is an important social outlet. She belongs to [employer]. She would like to have an appropriate program to use the weight room at the pool. She now finds it difficult to walk longer distances without walking sticks but she is comfortable doing shopping trips without assistive device. She notes her walking is hesitant and slow. Pt denies falls but remains fearful of falling. PMH includes osteoporosis, depression, tinnitus, HTN. Prior Treatments and Tests Pt is followed by podiatry. No prior PT. Future Testing and Treatments Planned None identified Treatment Goals Patient/Caregiver Goals Pt would like to be more comfortable working in the garden. She has difficulty squatting to garden so tends to sit down on the ground but has trouble getting up. She would like to walk farther with less pain. She would like to engage in a weightlifting program. Prior Functional Status Baseline Function- ADL's Independent Baseline Function- Mobility Independent Baseline Function- Gait no AD Current Functional Impairments (Reported) Functional Limitations- ADL's Dressing has become more challenging Functional Limitations- Mobility/Gait Bed mobility and other transitions are difficult. Needs walking sticks for longer distance walking. Functional Limitations- Recreation/ Trouble squatting and getting Hobbies up from the ground which limits gardening. Personal Factors Other Personal Factors That May Effect Depression and chronicity of Therapy/Recovery deficits may affect rehab outcomes. PT-OP-C Subjective Start: 01/06/21 12:55 Freq: Status: Active Protocol: Document 02/16/21 10:25 AW (Rec: 02/16/21 10:26 AW [id number]) OP-PT Subjective Patient Comments Patient Comments Pt would like to cut HEP down to a more manageable number of exercises. Thinks she will feel more likely to perform. PT-OP-D Balance Start: 01/06/21 12:55 Freq: Status: Active Protocol: Document 01/07/21 09:45 AW (Rec: 01/07/21 10:25 AW [email or web address]) OP-PT Balance Assessment Sitting Balance Static Sitting Balance Ability Normal Dynamic Sitting Balance Ability Normal Standing Balance Static Standing Balance Ability Fair Dynamic Standing Balance Ability Fair Arora Fall Scale Copyright Permission PT-OP-E Functional Tests Start: 01/06/21 12:55 Freq: Status: Active Protocol: Document 01/07/21 09:45 AW (Rec: 01/07/21 10:25 AW [email or web address]) Functional Tests Dynamic Gait Index (DGI) Score 21 DGI Impairment Rating 1 to <20% Impaired (Score 20- 23) Functional Gait Assessment Score 22 Functional Gait Assessment Impairment 20 to <40% Impaired (Score 19- Rating 24) PT-OP-G Mobility & Gait Start: 01/06/21 12:55 Freq: Status: Active Protocol: Document 01/07/21 09:45 AW (Rec: 01/07/21 10:29 AW [email or web address]) OP Mobility Evaluation Bed Mobility Rolling Independent but slow and labored Supine to and from Sit Independent but slow and labored Transfers Sit to Stand Definite use of hands Floor Transfers Great difficulty per pt report . Not assessed. OP Gait Assessment Gait Gait Assistance Required: Independent Distance (Feet) 300 Gait Deviations General Gait Pattern Antalgic,Decreased Feet Clearance,Step-to Gait Factors Limiting Gait Function Factors Limiting Gait Function Decreased Activity Tolerance, Decreased Strength,Limited Range of Motion,Pain,Poor Balance Comments Gait Comments Pt ambulates with forefoot pronation most obvious on right side. Foot scuffs BLE on ~10% of steps indicating poor foot clearance. PT-OP-H Neuro Start: 01/06/21 12:55 Freq: Status: Active Protocol: Document 01/07/21 09:45 AW (Rec: 01/07/21 10:29 AW [email or web address]) Sensation Evaluation Gross Sensation Gross Sensation Left LE Impaired,Right LE Impaired Sensation Description Tingling Comments Summary Comments Tingling reported in bilateral feet - not at all times but more noticable at night. Deep Tendon Reflex & Clonus Assessment Deep Tendon Reflex Bilateral Achilles Deep Tendon Reflex 2+ Normal Bilateral Patellar Deep Tendon Reflex 2+ Normal PT-OP-K Range of Motion Start: 01/06/21 12:55 Freq: Status: Active Protocol: Document 01/07/21 09:45 AW (Rec: 01/07/21 17:15 AW [email or web address]) Ankle and Foot Goniometric Range of Motion Ankle and Foot right Ankle/Foot ROM WFL Yes Testing Position Supine Dorsiflexion with Knee Flexed 20 Plantarflexion 40 Inversion 39 Eversion 20 left Ankle/Foot ROM WFL Yes Testing Position Supine Dorsiflexion with Knee Flexed 20 Plantarflexion 40 Inversion 33 Eversion 18 PT-OP-M Strength Start: 01/06/21 12:55 Freq: Status: Active Protocol: Document 01/07/21 09:45 AW (Rec: 01/07/21 17:15 AW [email or web address]) Hip Strength Hip Manual Muscle Testing bilat Flexion (L2) 4+ Good+ Extension (S1) 4 Good Abduction 4 Good Adduction 4+ Good+ External Rotation 4+ Good+ Internal Rotation 4+ Good+ Knee Strength Knee Manual Muscle Testing bilat Flexion (S2) 4 Good Extension (L3) 4+ Good+ Ankle/Foot Strength Ankle and Foot Manual Muscle Testing bilat Dorsiflexion (L4) 4+ Good+ Inversion 4+ Good+ Eversion (S1) 4+ Good+ Comments Plantar flexion tested in standing. Pt able to complete 5 bilat heel lifts. She was unable to complete unilateral heel lift with quality one time each side. PT-OP-Q Treatments Start: 01/06/21 12:55 Freq: Status: Active Protocol: Document 02/16/21 10:25 AW (Rec: 02/16/21 10:26 AW [id number]) Cardio Equipment Recumbent Bicycle Duration (Minutes) 7 Resistance 3 Seat Position 5 Other able to carry on conversation Gym Equipment Shuttle Balance WBOS, NBOS Details blue clips Reps/Duration 5 min Comments for stability and balance - WBOS EO/EC - NBOS EO/EC Therapeutic Exercises Sitting Exercises seated clam Sitting Exercise Name seated clam Side bilateral Resistance TB3 Reps/Minutes x10 Comments added to condensed HEP isometric ankle inversion Sitting Exercise Name isometric ankle inversion Side right Equipment Used small orange ball Reps/Minutes 5SH x 15 Comments long-sitting; for condense HEP Standing Exercises lateral band walk Standing Exercise Name lateral band walk Side bilateral Resistance yellow loop Reps/Minutes 10' lap x 2 Comments clinic only Arch lift Standing Exercise Name With arch support: Arch lifts Side right Reps/Minutes 5SH x 10 Comments Extra time for cuing of keeping Big toe MTP jt on floor with lift PT-OP-T Assessment and Plan Start: 01/06/21 12:55 Freq: Status: Active Protocol: Document 02/16/21 10:25 AW (Rec: 02/16/21 10:29 AW [id number]) Physical Therapy Assessment Goals Five Impairment endurance Impairment Pt lacks tolerance to walk a mile Short Term Goal (STG) Pt will complete 1200 feet on 6MWT with no breaks as a measure of improved walking tolerance. STG Duration 02/11/21 Event Services Manager Goal (LTG) Pt will complete 1500 feet on 6MWT with no breaks as a measure of improved walking tolerance and parity with age and gender-matched peers. LTG Duration 04/09/21 Four Impairment strength Impairment unable to squat to work in garden Short Term Goal (STG) Pt will complete 10 reps or greater on 30 Second Sit to Stand test without use of hands for improved BLE strength. STG Duration 02/11/21 Event Services Manager Goal (LTG) Pt will get up from the floor SBA to improve her ability to participate in gardening activities. LTG Duration 04/09/21 Three Impairment self-efficacy Impairment ABC score 80% Event Services Manager Goal (LTG) Pt will improve ABC score to 90% or greater as a measure of improved self-efficacy related to falls risk. LTG Duration 04/09/21 Two Impairment dynamic balance Impairment FGA 22/30 Event Services Manager Goal (LTG) Pt will improve FGA score from 22/30 to 27/30 or greater for parity with age-matched peers and as a measure of reduced falls risk. LTG Duration 04/09/21 One Impairment lacks HEP Short Term Goal (STG) Pt will be instructed in progressive HEP for general BLE strengthening. STG Duration 02/11/21 [facility] Goal (LTG) Pt will be independent with HEP with possible addition of machine weight exercises for pool/gym workouts. LTG Duration 04/09/21 Assessment Summary Assessment Pt is aware of foot posture in standing and works to correct on balance board and during all standing ther ex today. She requires some encouragement to participate but shows good effort with all activity. Physical Therapy Plan Frequency and Duration Frequency of Treatment 1-2x/week Duration of Treatment 3 months Plan of Care Start Date 01/07/21 Plan of Care End Date 04/09/21 Therapeutic Interventions Therapeutic Interventions Aquatic Therapy,Balance Training,Gait Training,Home Exercise Program,Manual Therapy,Orthotic/Prosthetic Management,Patient/Caregiver Education,Self-Care/Home Management,Soft Tissue Mobilization,Taping, Therapeutic Activities, Therapeutic Exercises Modalities Cold Pack/Ice Massage,Hot Packs Next Visit Focus/Plan Next Note Type Treatment Note Next Visit Plan KT tape for R arch support- teach pt how to tape Review condensed HEP (ankle IV ) &continue with standing ther ex in mirror for self- feedback Recumbent stepper for endurance. Progress as able.
--- NOTE | 2021-02-18 13:15 | PT.OTN ---
Current Diagnoses Other specified phobia (02/18/21) Pain in right foot (02/18/21) Difficulty in walking, not elsewhere classified (02/18/21) Physical Therapy Treatment Note PT-OP-A Visit Information Start: 01/06/21 12:55 Freq: Status: Active Protocol: Document 02/18/21 10:30 AW (Rec: 02/18/21 10:28 AW [id number]) Out-Patient Physical Therapy Visit Information Visit Information Visit Type Treatment Note Visit Start Time 09:45 Visit Stop Time 10:30 Total Visit Minutes 45 Visit Number 9 Number of CARD CUTTER HELPER Visits 0 Precautions Precautions osteoporosis PT-OP-B Current Condition Start: 01/06/21 12:55 Freq: Status: Active Protocol: Document 01/07/21 09:45 AW (Rec: 01/06/21 14:33 AW [email or web address]) Current Condition History of Current Condition Onset Date 2 years Current Complaints right foot pain; B knee pain; fear of falling History of Current Condition Harleen used to be more active, including aerobics classes, swimming, and weight room workouts up until a few years ago. She has been less and less active recently. She attributes this to pandemic restrictions but also to right foot pain. She says her right foot arch collapsed 30 years ago without known cause. She wears a custom orthotic in all of her shoes. She is followed by podiatry who agrees her current orthosis is appropriate. She feels terribly weak and is fearful of falling due to osteoporosis . Current activity includes pool exercise three times weekly which is an important social outlet. She belongs to [employer]. She would like to have an appropriate program to use the weight room at the pool. She now finds it difficult to walk longer distances without walking sticks but she is comfortable doing shopping trips without assistive device. She notes her walking is hesitant and slow. Pt denies falls but remains fearful of falling. PMH includes osteoporosis, depression, tinnitus, HTN. Prior Treatments and Tests Pt is followed by podiatry. No prior PT. Future Testing and Treatments Planned None identified Treatment Goals Patient/Caregiver Goals Pt would like to be more comfortable working in the garden. She has difficulty squatting to garden so tends to sit down on the ground but has trouble getting up. She would like to walk farther with less pain. She would like to engage in a weightlifting program. Prior Functional Status Baseline Function- ADL's Independent Baseline Function- Mobility Independent Baseline Function- Gait no AD Current Functional Impairments (Reported) Functional Limitations- ADL's Dressing has become more challenging Functional Limitations- Mobility/Gait Bed mobility and other transitions are difficult. Needs walking sticks for longer distance walking. Functional Limitations- Recreation/ Trouble squatting and getting Hobbies up from the ground which limits gardening. Personal Factors Other Personal Factors That May Effect Depression and chronicity of Therapy/Recovery deficits may affect rehab outcomes. PT-OP-C Subjective Start: 01/06/21 12:55 Freq: Status: Active Protocol: Document 02/18/21 10:30 AW (Rec: 02/18/21 10:28 AW [id number]) OP-PT Subjective Patient Comments Patient Comments Pt was successful in performing her condensed HEP since last visit. PT-OP-D Balance Start: 01/06/21 12:55 Freq: Status: Active Protocol: Document 01/07/21 09:45 AW (Rec: 01/07/21 10:25 AW [email or web address]) OP-PT Balance Assessment Sitting Balance Static Sitting Balance Ability Normal Dynamic Sitting Balance Ability Normal Standing Balance Static Standing Balance Ability Fair Dynamic Standing Balance Ability Fair Arora Fall Scale Copyright Permission PT-OP-E Functional Tests Start: 01/06/21 12:55 Freq: Status: Active Protocol: Document 01/07/21 09:45 AW (Rec: 01/07/21 10:25 AW [email or web address]) Functional Tests Dynamic Gait Index (DGI) Score 21 DGI Impairment Rating 1 to <20% Impaired (Score 20- 23) Functional Gait Assessment Score 22 Functional Gait Assessment Impairment 20 to <40% Impaired (Score 19- Rating 24) PT-OP-G Mobility & Gait Start: 01/06/21 12:55 Freq: Status: Active Protocol: Document 01/07/21 09:45 AW (Rec: 01/07/21 10:29 AW [email or web address]) OP Mobility Evaluation Bed Mobility Rolling Independent but slow and labored Supine to and from Sit Independent but slow and labored Transfers Sit to Stand Definite use of hands Floor Transfers Great difficulty per pt report . Not assessed. OP Gait Assessment Gait Gait Assistance Required: Independent Distance (Feet) 300 Gait Deviations General Gait Pattern Antalgic,Decreased Feet Clearance,Step-to Gait Factors Limiting Gait Function Factors Limiting Gait Function Decreased Activity Tolerance, Decreased Strength,Limited Range of Motion,Pain,Poor Balance Comments Gait Comments Pt ambulates with forefoot pronation most obvious on right side. Foot scuffs BLE on ~10% of steps indicating poor foot clearance. PT-OP-H Neuro Start: 01/06/21 12:55 Freq: Status: Active Protocol: Document 01/07/21 09:45 AW (Rec: 01/07/21 10:29 AW [email or web address]) Sensation Evaluation Gross Sensation Gross Sensation Left LE Impaired,Right LE Impaired Sensation Description Tingling Comments Summary Comments Tingling reported in bilateral feet - not at all times but more noticable at night. Deep Tendon Reflex & Clonus Assessment Deep Tendon Reflex Bilateral Achilles Deep Tendon Reflex 2+ Normal Bilateral Patellar Deep Tendon Reflex 2+ Normal PT-OP-K Range of Motion Start: 01/06/21 12:55 Freq: Status: Active Protocol: Document 01/07/21 09:45 AW (Rec: 01/07/21 17:15 AW [email or web address]) Ankle and Foot Goniometric Range of Motion Ankle and Foot right Ankle/Foot ROM WFL Yes Testing Position Supine Dorsiflexion with Knee Flexed 20 Plantarflexion 40 Inversion 39 Eversion 20 left Ankle/Foot ROM WFL Yes Testing Position Supine Dorsiflexion with Knee Flexed 20 Plantarflexion 40 Inversion 33 Eversion 18 PT-OP-M Strength Start: 01/06/21 12:55 Freq: Status: Active Protocol: Document 01/07/21 09:45 AW (Rec: 01/07/21 17:15 AW [email or web address]) Hip Strength Hip Manual Muscle Testing bilat Flexion (L2) 4+ Good+ Extension (S1) 4 Good Abduction 4 Good Adduction 4+ Good+ External Rotation 4+ Good+ Internal Rotation 4+ Good+ Knee Strength Knee Manual Muscle Testing bilat Flexion (S2) 4 Good Extension (L3) 4+ Good+ Ankle/Foot Strength Ankle and Foot Manual Muscle Testing bilat Dorsiflexion (L4) 4+ Good+ Inversion 4+ Good+ Eversion (S1) 4+ Good+ Comments Plantar flexion tested in standing. Pt able to complete 5 bilat heel lifts. She was unable to complete unilateral heel lift with quality one time each side. PT-OP-Q Treatments Start: 01/06/21 12:55 Freq: Status: Active Protocol: Document 02/18/21 10:30 AW (Rec: 02/18/21 10:28 AW [id number]) Cardio Equipment Recumbent Bicycle Duration (Minutes) 7 Resistance 3 Seat Position 5 Other able to carry on conversation Gym Equipment Shuttle Recovery Bilateral Squats Details B squats Resistance 75# x 10; 87# x 10; 87# x 10 Shuttle Recovery Platform Stable Reps/Time cued neutral knee posture Shuttle Balance WBOS, NBOS Details blue clips Reps/Duration 5 min Comments for stability and balance - WBOS EO/EC - NBOS EO/EC Therapeutic Exercises Standing Exercises lateral band walk Standing Exercise Name lateral band walk Side bilateral Resistance yellow loop Reps/Minutes 10' lap x 3 Comments clinic only Other Exercises sit to stand Other Exercise Name sit to stand Side right Resistance 30STS: 6, 9 Equipment Used std ht chair Reps/Minutes 10x Gait Training Gait Activity 6MWT Description 6MWT Device Used none Level of Assistance SBA Surface level - tile and carpet Distance/Duration 1161 Treatment Focus assessment Comments 0.98 m/s. All split/lap times within 5 seconds. Pt was mildly SOB at end. PT-OP-T Assessment and Plan Start: 01/06/21 12:55 Freq: Status: Active Protocol: Document 02/18/21 10:30 AW (Rec: 02/18/21 13:15 AW [email or web address]) Physical Therapy Assessment Goals Five Impairment endurance Impairment Pt lacks tolerance to walk a mile Short Term Goal (STG) Pt will complete 1200 feet on 6MWT with no breaks as a measure of improved walking tolerance 02/18/21 - Pt ambulates 1161 feet today on 6MWT with improved awareness of foot posture in gait. STG Duration 02/11/21 Clinical Biostatistics Director Goal (LTG) Pt will complete 1500 feet on 6MWT with no breaks as a measure of improved walking tolerance and parity with age and gender-matched peers. LTG Duration 04/09/21 Four Impairment strength Impairment unable to squat to work in garden Short Term Goal (STG) Pt will complete 10 reps or greater on 30 Second Sit to Stand test without use of hands for improved BLE strength. 02/18/21 - Pt completes 9 reps in 30 second STS test today. Good progress. STG Duration 02/11/21 Group Home Goal (LTG) Pt will get up from the floor SBA to improve her ability to participate in gardening activities. LTG Duration 04/09/21 Three Impairment self-efficacy Impairment ABC score 80% Clinical Biostatistics Director Goal (LTG) Pt will improve ABC score to 90% or greater as a measure of improved self-efficacy related to falls risk. LTG Duration 04/09/21 Two Impairment dynamic balance Impairment FGA Group Home Goal (LTG) Pt will improve FGA score from to 27/30 or greater for parity with age-matched peers and as a measure of reduced falls risk. LTG Duration 04/09/21 One Impairment lacks HEP Short Term Goal (STG) Pt will be instructed in progressive HEP for general BLE strengthening. 02/18/21 - MET STG Duration 02/11/21 Group Home Goal (LTG) Pt will be independent with HEP with possible addition of machine weight exercises for pool/gym workouts. LTG Duration 04/09/21 Assessment Summary Assessment Assessed goals and continued standing balance training today to improve foot posture and ankle stability. Pt responds well to introduction of shuttle press and expresses interest in using cable machines next visit for carryover to gym environment. Physical Therapy Plan Frequency and Duration Frequency of Treatment 1-2x/week Duration of Treatment 3 months Plan of Care Start Date 01/07/21 Plan of Care End Date 04/09/21 Therapeutic Interventions Therapeutic Interventions Aquatic Therapy,Balance Training,Gait Training,Home Exercise Program,Manual Therapy,Orthotic/Prosthetic Management,Patient/Caregiver Education,Self-Care/Home Management,Soft Tissue Mobilization,Taping, Therapeutic Activities, Therapeutic Exercises Modalities Cold Pack/Ice Massage,Hot Packs Next Visit Focus/Plan Next Note Type Treatment Note Next Visit Plan KT tape for R arch support- teach pt how to tape Review condensed HEP (ankle IV ) &continue with standing ther ex . Consider cable machines for carryover to gym.
--- NOTE | 2021-03-10 12:08 | PT.OTN ---
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 She has been less and less active recently. She attributes this to pandemic restrictions but also to right foot pain. She says her right foot arch collapsed 30 years ago without known cause. She wears a custom orthotic in all of her shoes. She is followed by podiatry who agrees her current orthosis is appropriate. She feels terribly weak and is fearful of falling due to osteoporosis . Current activity includes pool exercise three times weekly which is an important social outlet. She belongs to [employer]. She would like to have an appropriate program to use the weight room at the pool. She now finds it difficult to walk longer distances without walking sticks but she is comfortable doing shopping trips without assistive device. She notes her walking is hesitant and slow. Pt denies falls but remains fearful of falling. PMH includes osteoporosis, depression, tinnitus, HTN. Prior Treatments and Tests Pt is followed by podiatry. No prior PT. Future Testing and Treatments Planned None identified Treatment Goals Patient/Caregiver Goals Pt would like to be more comfortable working in the garden. She has difficulty squatting to garden so tends to sit down on the ground but has trouble getting up. She would like to walk farther with less pain. She would like to engage in a weightlifting program. Prior Functional Status Baseline Function- ADL's Independent Baseline Function- Mobility Independent Baseline Function- Gait no AD Current Functional Impairments (Reported) Functional Limitations- ADL's Dressing has become more challenging Functional Limitations- Mobility/Gait Bed mobility and other transitions are difficult. Needs walking sticks for longer distance walking. Functional Limitations- Recreation/ Trouble squatting and getting Hobbies up from the ground which limits gardening. Personal Factors Other Personal Factors That May Effect Depression and chronicity of Therapy/Recovery deficits may affect rehab outcomes. PT-OP-C Subjective Start: 01/06/21 12:55 Freq: Status: Active Protocol: Document 03/10/21 11:57 AW (Rec: 03/10/21 11:58 AW [id number]) OP-PT Subjective Patient Comments Patient Comments Still having trouble doing HEP due to lack of motivation. She continues to attend the pool for social [employer]. PT-OP-D Balance Start: 01/06/21 12:55 Freq: Status: Active Protocol: Document 01/07/21 09:45 AW (Rec: 01/07/21 10:25 AW [email or web address]) OP-PT Balance Assessment Sitting Balance Static Sitting Balance Ability Normal Dynamic Sitting Balance Ability Normal Standing Balance Static Standing Balance Ability Fair Dynamic Standing Balance Ability Fair Arora Fall Scale Copyright Permission PT-OP-E Functional Tests Start: 01/06/21 12:55 Freq: Status: Active Protocol: Document 01/07/21 09:45 AW (Rec: 01/07/21 10:25 AW [email or web address]) Functional Tests Dynamic Gait Index (DGI) Score 21 DGI Impairment Rating 1 to <20% Impaired (Score 20- 23) Functional Gait Assessment Score 22 Functional Gait Assessment Impairment 20 to <40% Impaired (Score 19- Rating 24) PT-OP-G Mobility & Gait Start: 01/06/21 12:55 Freq: Status: Active Protocol: Document 01/07/21 09:45 AW (Rec: 01/07/21 10:29 AW [email or web address]) OP Mobility Evaluation Bed Mobility Rolling Independent but slow and labored Supine to and from Sit Independent but slow and labored Transfers Sit to Stand Definite use of hands Floor Transfers Great difficulty per pt report . Not assessed. OP Gait Assessment Gait Gait Assistance Required: Independent Distance (Feet) 300 Gait Deviations General Gait Pattern Antalgic,Decreased Feet Clearance,Step-to Gait Factors Limiting Gait Function Factors Limiting Gait Function Decreased Activity Tolerance, Decreased Strength,Limited Range of Motion,Pain,Poor Balance Comments Gait Comments Pt ambulates with forefoot pronation most obvious on right side. Foot scuffs BLE on ~10% of steps indicating poor foot clearance. PT-OP-H Neuro Start: 01/06/21 12:55 Freq: Status: Active Protocol: Document 01/07/21 09:45 AW (Rec: 01/07/21 10:29 AW [email or web address]) Sensation Evaluation Gross Sensation Gross Sensation Left LE Impaired,Right LE Impaired Sensation Description Tingling Comments Summary Comments Tingling reported in bilateral feet - not at all times but more noticable at night. Deep Tendon Reflex & Clonus Assessment Deep Tendon Reflex Bilateral Achilles Deep Tendon Reflex 2+ Normal Bilateral Patellar Deep Tendon Reflex 2+ Normal PT-OP-K Range of Motion Start: 01/06/21 12:55 Freq: Status: Active Protocol: Document 01/07/21 09:45 AW (Rec: 01/07/21 17:15 AW [email or web address]) Ankle and Foot Goniometric Range of Motion Ankle and Foot right Ankle/Foot ROM WFL Yes Testing Position Supine Dorsiflexion with Knee Flexed 20 Plantarflexion 40 Inversion 39 Eversion 20 left Ankle/Foot ROM WFL Yes Testing Position Supine Dorsiflexion with Knee Flexed 20 Plantarflexion 40 Inversion 33 Eversion 18 PT-OP-M Strength Start: 01/06/21 12:55 Freq: Status: Active Protocol: Document 01/07/21 09:45 AW (Rec: 01/07/21 17:15 AW [email or web address]) Hip Strength Hip Manual Muscle Testing bilat Flexion (L2) 4+ Good+ Extension (S1) 4 Good Abduction 4 Good Adduction 4+ Good+ External Rotation 4+ Good+ Internal Rotation 4+ Good+ Knee Strength Knee Manual Muscle Testing bilat Flexion (S2) 4 Good Extension (L3) 4+ Good+ Ankle/Foot Strength Ankle and Foot Manual Muscle Testing bilat Dorsiflexion (L4) 4+ Good+ Inversion 4+ Good+ Eversion (S1) 4+ Good+ Comments Plantar flexion tested in standing. Pt able to complete 5 bilat heel lifts. She was unable to complete unilateral heel lift with quality one time each side. PT-OP-Q Treatments Start: 01/06/21 12:55 Freq: Status: Active Protocol: Document 03/10/21 11:57 AW (Rec: 03/10/21 11:58 AW [id number]) Cardio Equipment Recumbent Bicycle Duration (Minutes) 7 Resistance 3 Seat Position 5 Other able to carry on conversation Gym Equipment Shuttle Recovery Bilateral Squats Details B squats Resistance 87# Shuttle Recovery Platform Stable Reps/Time 3x10; cued neutral knee posture Shuttle Balance WBOS, NBOS Details blue clips Reps/Duration 5 min Comments for stability and balance - WBOS EO/EC - NBOS EO/EC Therapeutic Exercises Standing Exercises step ups Standing Exercise Name fwd and lateral Side bilateral Resistance no UE support Equipment Used 6 step Comments suggestion for HEP lateral band walk Standing Exercise Name lateral band walk Side bilateral Resistance yellow loop Reps/Minutes 10' lap x 3 Comments clinic only Other Exercises sit to stand Other Exercise Name sit to stand Equipment Used std ht chair + blue foam under feet Reps/Minutes 6,6,6 PT-OP-T Assessment and Plan Start: 01/06/21 12:55 Freq: Status: Active Protocol: Document 03/10/21 11:57 AW (Rec: 03/10/21 12:08 AW [id number]) Physical Therapy Assessment Goals Five Impairment endurance Impairment Pt lacks tolerance to walk a mile Short Term Goal (STG) Pt will complete 1200 feet on 6MWT with no breaks as a measure of improved walking tolerance 02/18/21 - Pt ambulates 1161 feet today on 6MWT with improved awareness of foot posture in gait. STG Duration 02/11/21 Senior Care Goal (LTG) Pt will complete 1500 feet on 6MWT with no breaks as a measure of improved walking tolerance and parity with age and gender-matched peers. 03/10/21 - Pt improved 6MWT from 1015 feet to 1161 feet - a 14% increase. Gait speed improved from 0.86 m/s to 0.98 m/s LTG Duration 04/09/21 Four Impairment strength Impairment unable to squat to work in [employer] Short Term Goal (STG) Pt will complete 10 reps or greater on 30 Second Sit to Stand test without use of hands for improved BLE strength. 02/18/21 - Pt completes 9 reps in 30 second STS test today. Good progress. STG Duration 02/11/21 Leather Cutter Goal (LTG) Pt will get up from the floor SBA to improve her ability to participate in gardening activities. 03/10/21 NOT ASSESSED LTG Duration 04/09/21 Three Impairment self-efficacy Impairment ABC score 80% Leather Cutter Goal (LTG) Pt will improve ABC score to 90% or greater as a measure of improved self-efficacy related to falls risk. NOT ASSESSED. LTG Duration 04/09/21 Two Impairment dynamic balance Impairment FGA 22/30 Leather Cutter Goal (LTG) Pt will improve FGA score from 2230 to 27/30 or greater for parity with age-matched peers and as a measure of reduced falls risk. LTG Duration 04/09/21 One Impairment lacks HEP Short Term Goal (STG) Pt will be instructed in progressive HEP for general BLE strengthening. 02/18/21 - MET STG Duration 02/11/21 Senior Care Goal (LTG) Pt will be independent with HEP with possible addition of machine weight exercises for pool/gym workouts. 03/10/21 PROGRESSING LTG Duration 04/09/21 Assessment Summary Assessment Pt continues to struggle with motivation to perform HEP but continues to particpate in pool activities regularly. She has improved awareness of her foot posture and lower extremity alignment. She wishes to discharge to [facility]. Physical Therapy Plan Frequency and Duration Frequency of Treatment 1-2x/week Duration of Treatment 3 months Plan of Care Start Date 01/07/21 Plan of Care End Date 04/09/21 Therapeutic Interventions Therapeutic Interventions Aquatic Therapy,Balance Training,Gait Training,Home Exercise Program,Manual Therapy,Orthotic/Prosthetic Management,Patient/Caregiver Education,Self-Care/Home Management,Soft Tissue Mobilization,Taping, Therapeutic Activities, Therapeutic Exercises Modalities Cold Pack/Ice Massage,Hot Packs Discharge Physical Therapy Discharge Reasons Patient Request Discharge Comments Pt has improved her endurance as well as her awareness of foot posture and lower extremity alignment. She struggles with motivation and feels it is time for her to attempt HEP on her own. She has scheduled an introductory [facility] session [facility] this [facility] and is ready to discharge.
== END 2021-03-30 08:33 | disposition home or self-care (01) ==
LOC: PHYS 11:15
PROVIDERS: Family Provider Nurse Practitioner; PCP Nurse Practitioner; Referring Provider Nurse Practitioner; Visit Provider Nurse Practitioner
DX: M79.671 Pain in right foot (principal); F40.298 Other specified phobia; R26.2 Difficulty in walking, not elsewhere classified
CPT/HCPCS: 97110; 97112; 97116; 97140; 97162

== ENCOUNTER → 2021-11-22 15:52 | Outpatient (CLI) | payer MEDICARE, SELFPAY | PROVIDERS: Family Provider Nurse Practitioner; PCP Nurse Practitioner; Referring Provider Nurse Practitioner; Visit Provider Nurse Practitioner | DX: Z12.31 Encounter for screening mammogram for malignant neoplasm of breast (principal); Z53.8 Procedure and treatment not carried out for other reasons ==

== ENCOUNTER → 2022-02-02 09:22 | Outpatient (CLI) | payer MEDICARE, SELFPAY ==
--- NOTE | 2022-02-02 | DI.MG.S_ITS ---
BILATERAL DIGITAL SCREENING MAMMOGRAM 3D/2D WITH CAD: 02/02/2022 CLINICAL: Routine screening. Comparison is made to exams dated: 01/15/2021 mammogram, 11/27/2019 mammogram - [facility], 12/08/2017 mammogram, and 10/28/2016 mammogram - outside location. There are scattered areas of fibroglandular density in both breasts (category b / 25%-50% glandular tissue). Current study was also evaluated with a Computer Aided Detection (CAD) system. No significant masses, calcifications, or other findings are seen in either breast. There has been no significant interval change. IMPRESSION: NEGATIVE There is no mammographic evidence of malignancy. A 1 year screening mammogram is recommended. Based on the Tyrer Cuzick model (a risk assessment model) the patient's lifetime risk is 5.6% and her 10 year risk is 4.1%. According to the ACR, ACS, and NCCN guidelines, an annual breast MRI exam along with mammogram is recommended if the patient's lifetime risk is 20% or greater. This exam was interpreted at Station ID: [id number]. NOTE: For mammograms, a report in lay terms will be sent to the patient. Approximately 15% of breast malignancies will not be visualized mammographically. In the management of a palpable breast mass, a negative mammogram must not discourage biopsy of a clinically suspicious lesion. Electronically Signed By: José Miguel murphy/eh:02/02/2022 16:00:08 letter sent: Normal Exam ACR BI-RADS Category 1: Negative [id number]
== END ==
PROVIDERS: Family Provider Nurse Practitioner; PCP Nurse Practitioner; Referring Provider Nurse Practitioner; Visit Provider Nurse Practitioner
DX: Z12.31 Encounter for screening mammogram for malignant neoplasm of breast
CPT/HCPCS: 77063; 77067

== ENCOUNTER → 2022-03-08 11:27 | Outpatient (CLI) | payer MEDICARE, SELFPAY ==
--- NOTE | 2022-03-08 | DI.US.S_ITS ---
PROCEDURE: US PELVIC COMPLETE INDICATIONS: postmenopausal bleeding TECHNIQUE: Real-time scanning was performed of the pelvic organs, with image documentation. Additional endovaginal scanning was necessary due to incomplete visualization of the adnexal and endometrial structures by transabdominal scanning. COMPARISON: None. FINDINGS: Uterus: Uterus is retroverted and normal in size at 7.2 x 5.5 x 3.5 cm. The myometrium is heterogeneous. No discrete uterine fibroid is seen. The endometrium measures 8.0 mm combined thickness. Heterogeneous endometrial echotexture is noted containing multiple anechoic cysts measures up to 7 x 2 x 2 mm in size. Ovaries: Bilateral ovaries are not visualized on this study. No gross adnexal mass is seen. Other: No pathologic free abdominal or pelvic fluid. IMPRESSION: 1. Thickened endometrium with heterogeneous endometrial echotexture and tiny endometrial cysts as above. Finding may represent endometrial hyperplasia suggest DORMITORY SUPERVISOR correlation. 2. No discrete uterine fibroid. Heterogeneous myometrial echotexture. 3. Bilateral ovaries are not visualized. No gross solid appearing adnexal mass. We strive to produce accurate, complete, and clear reports of imaging services. To assist us in improving patient care, this report was composed using standard report templates and voice recognition software. Therefore, it may contain abnormal punctuation, insertions and/or omissions. Occasional wrong-word or sound-alike substitutions may occur. Though we review the report and make efforts to correct it, we do recommend that the report be read carefully in proper context to recognize any text inaccuracies. Dictated by: Aaron Ayala M.D. on 03/08/2022 at 16:15 Approved by: Aaron Ayala M.D. on 03/08/2022 at 17:02
--- NOTE | 2022-03-08 11:28 | DI.US.S_ITS ---
PROCEDURE: US PERIPH VENOUS LOW EXTREM RT INDICATIONS: right calf pain, rule out DVT TECHNIQUE: Real-time imaging, as well as color and pulse Doppler interrogation, were performed of the lower extremity deep veins from the inguinal ligament to the popliteal fossa. COMPARISON: None. FINDINGS: The common femoral, femoral and popliteal veins are normally compressible, and free of intraluminal thrombus. Color and pulse Doppler demonstrate normal phasic intraluminal flow. There is normal augmentation response to distal compression maneuver. IMPRESSION: No evidence of deep vein thrombosis involving the right lower extremity. Dictated by: Tori Mora MD, PhD on 03/08/2022 at 12:51 Approved by: Tori Mora MD, PhD on 03/08/2022 at 12:52
--- NOTE | 2022-03-08 11:29 | DI.RAD.S_ITS ---
PROCEDURE: XR KNEE RT 3V INDICATIONS: right knee pain, popliteal TECHNIQUE: 3 views of the knee were acquired. COMPARISON: None. FINDINGS: Bones: No fractures or dislocations. There is tgpl-cp-[id number] tricompartmental osteoarthritis more notably in patellofemoral compartment. No suspicious bony lesions. Soft tissues: Moderate suprapatellar joint effusion is seen. No suspicious soft tissue calcifications. IMPRESSION: No right knee fracture or dislocation. Bbad-ob-mdlilrvr tricompartmental osteoarthritis and moderate suprapatellar joint effusion. Dictated by: Aaron Ayala M.D. on 03/08/2022 at 13:39 Approved by: Aaron Ayala M.D. on 03/08/2022 at 13:42
== END ==
PROVIDERS: Family Provider Nurse Practitioner; PCP Nurse Practitioner; Referring Provider Nurse Practitioner; Visit Provider Nurse Practitioner
DX: N95.0 Postmenopausal bleeding (principal); N85.8 Other specified noninflammatory disorders of uterus; R93.89 Abnormal findings on diagnostic imaging of other specified body structures; M17.11 Unilateral primary osteoarthritis, right knee; M25.461 Effusion, right knee; M79.661 Pain in right lower leg; M25.561 Pain in right knee
CPT/HCPCS: 73562; 76830; 76856; 93971

== ENCOUNTER → 2022-03-09 09:29 | Outpatient (CLI) | payer MEDICARE, SELFPAY ==
[2022-03-09 11:08] LABS: Add Manual Diff / Slide Review NO; Basophils Absolute Auto 0 /uL (0-100); Basophils Percent Auto 0.5 % (0-2); Eosinophils Absolute Auto 100 /uL (0-450); Eosinophils Percent Auto 1.9 % (2-4); Hematocrit 42.2 % (36-46); Lymphocytes Absolute Auto 2100 /uL (1100-4500); Lymphocytes Percent Auto 30.6 % (25-40); Mean Corpuscular HGB Conc 33.2 % (30-36); Mean Corpuscular Hemoglobin 31.2 PG (26-34); Mean Corpuscular Volume 94.2 fL (80-100); Monocytes Absolute Auto 600 /uL (0-900); Monocytes Percent Auto 8.7 % (3-14); Neutrophils Absolute Auto 3900 /uL (1500-7000); Neutrophils Percent Auto 58.3 % (50-75); Platelet Count 228 X10^3/uL (150-400); Red Blood Cell Count 4.48 X10^6/uL (4.0-5.2); Red Cell Distribution Width 13.6 % (11.6-14.8); White Blood Cell Count 6.7 X10^3/uL (4.5-11.0)
[2022-03-09 11:28] LABS: Alanine Aminotransferase 24 IU/L (<35); Albumin 4.4 g/dL (3.5-5.0); Albumin Globulin Ratio 1.1 (1.0-2.8); Alkaline Phosphatase 65 U/L (38-126); Aspartate Aminotransferase 24 IU/L (14-36); BUN Creatinine Ratio 16.1 (6-22); Bilirubin Total 0.6 mg/dL (0.2-1.3); Blood Urea Nitrogen 14 mg/dL (7-17); Calcium 9.8 mg/dL (8.4-10.2); Carbon Dioxide 33 mmol/L (22-32); Chloride 98 mmol/L (98-107); Cholesterol 238 mg/dL (140-199); Estimated Glomerular Filt Rate > 60 mL/min (>60); Globulin 4.1 g/dL (1.7-4.1); Glucose 91 mg/dL (80-110); HDL Cholesterol 58 mg/dL (40-60); HEMOLYSIS < 15 (0-50); LDL Cholesterol Calculated 154 mg/dL (<100); Sodium 138 mmol/L (137-145); Total Protein 8.5 g/dL (6.3-8.2); Triglycerides 131 mg/dL (35-150)
[2022-03-09 12:00] LABS: Thyroid Stimulating Hormone 3.52 uIU/mL (0.47-4.68)
[2022-03-09 12:08] LABS: Creatinine Urine Random 88.2 mg/dL
[2022-03-09 12:13] LABS: Microalbumi Creatinin Ratio Ur 12.4 ug/mg CR (<30); Microalbumin Urine Random 1.1 mg/dL (0-1.6)
[2022-03-09 17:45] LABS: Hep C Virus Ab w/Reflex Quant NEGATIVE s/c (NEGATIVE)
== END ==
PROVIDERS: Family Provider Nurse Practitioner; PCP Nurse Practitioner; Referring Provider Nurse Practitioner; Visit Provider Nurse Practitioner
DX: N95.0 Postmenopausal bleeding (principal); E78.2 Mixed hyperlipidemia; R53.83 Other fatigue; E03.9 Hypothyroidism, unspecified; F32.A Depression, unspecified; I10 Essential (primary) hypertension; R79.89 Other specified abnormal findings of blood chemistry; Z79.899 Other long term (current) drug therapy; Z11.59 Encounter for screening for other viral diseases
CPT/HCPCS: 36415; 80053; 80061; 82043; 82570; 84443; 85025; 86803

== ENCOUNTER → 2022-04-15 11:37 | Outpatient (CLI) | payer MEDICARE, SELFPAY | PROVIDERS: Family Provider Nurse Practitioner; PCP Nurse Practitioner; Referring Provider Nurse Practitioner; Visit Provider Nurse Practitioner | DX: I10 Essential (primary) hypertension (principal) | CPT/HCPCS: 93005; 93010 ==

== ENCOUNTER → 2022-05-05 09:21 | Outpatient (CLI) | payer MEDICARE, SELFPAY ==
--- NOTE | 2022-05-05 09:22 | DI.ECHO.S_ITS ---
[place] [facility]---------+ [facility] +---------+ : : [address] [place] : : : : [id number] : : : : Phone: [phone]+ Echocardiogram Report + + :Name: FATMATA STEWART Study Date: 05/05/2022 Height: 65 in : :[facility] ReadingLocation: Weight: 220 lb : : Gender: Female BSA: 2.1 m2 : :: 1950 Age: 71 yrs BP: 163/98 mmHg: :Reason For Study: Hypertension : :Ordering Physician: BUDDY, : :KIAN Performed By: Hien Peck : :Referring: KIAN GOODWIN : + + Interpretation Summary The left ventricle is normal in size and wall thickness. The ejection fraction is estimated to be 55-60%. The right ventricle is normal in size and function. No significant valvular pathology seen. The IVC is of normal diameter and collapses less than 50% with a sniff. This suggests a right atrial pressure of 8 mm Hg. Procedure: A two-dimensional transthoracic echocardiogram with color flow and Doppler was performed. The study quality was technically adequate. There is no prior echocardiogram noted for this patient. The patient was in sinus rhythm with heart rates between 72-75 bpm during the exam. Left Ventricle: The left ventricle is normal in size and wall thickness. There is no thrombus. The ejection fraction is estimated to be 55-60%. Left ventricular systolic function is normal. There are no focal wall motion abnormalities. Diastolic parameters suggest a relaxation abnormality of the left ventricle, consistent with probable normal filling pressures. Right Ventricle: The right ventricle is normal in size and function. Atria: The left atrial size is normal. The right atrium is normal in size. There is no Doppler evidence for an interatrial shunt. Mitral Valve: The mitral valve leaflets are slightly calcified. There is mild mitral annular calcification. There is trace mitral regurgitation. Aortic Valve: The aortic valve is normal in structure and function. The aortic valve is trileaflet. There is no aortic valve stenosis. There is trace aortic regurgitation. Tricuspid Valve: The tricuspid valve is normal in structure and function. Pulmonary artery pressures cannot be estimated because of the lack of a measurable TR jet velocity. There is trace tricuspid regurgitation. Pulmonic Valve: The pulmonic valve is not well seen, but is grossly normal. There is trace pulmonic regurgitation. Great Vessels: The ascending aorta is at the upper limits of normal in size. The IVC is of normal diameter and collapses less than 50% with a sniff. This suggests a right atrial pressure of 8 mm Hg. Pericardium/ Pleura There is no pericardial effusion. There is no pleural effusion. MMode/2D Measurements & Calculations LVIDd: 3.7 cm LVOT diam: 1.8 cm LVIDs: 2.5 cm Ao root diam: 3.4 cm FS: 32.4 % asc Aorta Diam: 3.9 cm EPSS: 0.70 cm Ao Arch Diam (Prox Trans): 3.2 cm IVSd: 0.90 cm LVPWd: 0.80 cm LV casillas. diameter/BSA (cm/m^2): 1.8 LV sys. diameter/BSA (cm/m^2): 1.2 LA dimension: 4.3 cm RA long axis: 4.0 cm LA A2 area: 20.1 cm2 RA area: 10.8 cm2 LA A4 area: 18.2 cm2 RA vol: 24.7 ml LA length (vol): 5.4 cm RA : 12.0 ml/m2 LA vol: 58.0 ml IVC diam: 1.6 cm LA vol index: 28.2 ml/m2 RVD1 (basal): 2.7 cm LVLs ap4: 6.2 cm LVLd ap2: 7.6 cm TAPSE_phl: 2.7 cm LVLs ap2: 5.9 cm Doppler Measurements & Calculations Ao V2 max: 122.0 cm/sec LVOT Max Derek: 85.9 cm/sec Ao V2 mean: 88.1 cm/sec LV V1 max P.0 mmHg Ao max P.0 mmHg LV V1 VTI: 18.8 cm Ao mean P.0 mmHg GURVINDER(I,D): 1.8 cm2 Ao V2 VTI: 25.9 cm GURVINDER(V,D): 1.8 cm2 sev ratio: 0.73 GURVINDER indexed to BSA (cm^2/m^2): 0.90 MV E max derek: 71.0 cm/sec PA V2 max: 87.3 cm/sec MV A max derek: 108.0 cm/sec PA V2 mean: 66.0 cm/sec MV E/A: 0.66 PA mean P.0 mmHg Med Peak E' Derek: 5.1 cm/sec E/E' med: 13.8 Lat Peak E' Derek: 5.3 cm/sec E/E' lat: 13.3 E/e' average: 13.6 MV dec time: 0.24 sec MVA(VTI): 2.4 cm2 MV V2 mean: 66.2 cm/sec SV(LVOT): 47.8 ml MV mean P.0 mmHg MV V2 VTI: 20.2 cm AV VR_phl: 0.70 MV P1/2t-pr_phl: 70.0 msec GURVINDER(VTI)/BSA_phl: 0.89 Reading Physician:03:36 PM
[2022-05-06 13:36] LABS: Fecal Immunochemical Test Negative (Negative)
== END ==
PROVIDERS: Family Provider Nurse Practitioner; PCP Nurse Practitioner; Referring Provider Student in an Organized Health Care Education/Training Program; Visit Provider Student in an Organized Health Care Education/Training Program
DX: I10 Essential (primary) hypertension (principal); I34.81 Nonrheumatic mitral (valve) annulus calcification; Z12.11 Encounter for screening for malignant neoplasm of colon
CPT/HCPCS: 82274; 93306

== ENCOUNTER → 2022-09-19 11:21 | Outpatient (CLI) | payer MEDICARE, SELFPAY ==
--- NOTE | 2022-09-19 11:21 | DI.RAD.S_ITS ---
PROCEDURE: XR LUMBAR SPINE 2-3V INDICATIONS: right lower back pain TECHNIQUE: 3 views of the lumbar spine were acquired. COMPARISON: None. FINDINGS: Bones: 5 cke-cco-jqrlnoc vertebrae are present. There is grade 1 anterolisthesis is present of L5 on S1. L5 pars defect is present. Moderate foraminal narrowing. Multilevel degenerative disc space narrowing is present No vertebral body compression fractures. No suspicious bony lesions. Soft tissues: Overlying bowel gas pattern is normal. No suspicious soft tissue calcifications. IMPRESSION: Pars defect with anterolisthesis of L5 on S1. Dictated by: Divya Stevenson M.D. on 09/19/2022 at 16:59 Approved by: Divya Stevenson M.D. on 09/19/2022 at 17:00
--- NOTE | 2022-09-19 11:21 | DI.RAD.S_ITS ---
PROCEDURE: XR HIP W PEL IF DONE RT 2V INDICATIONS: lower back and right hip pain TECHNIQUE: AP pelvis with lateral view(s) of the right hip(s). COMPARISON: None. FINDINGS: Bones: No fractures or dislocations. Pelvic ring appears intact. No suspicious bony lesions. Moderate to severe bilateral arthritic change most severe on the right. Periarticular osteophytes are present. Degenerative changes are present within the lower lumbar spine. Soft tissues: The visualized bowel gas pattern is normal. No suspicious soft tissue calcifications. IMPRESSION: Bilateral hip arthritis most severe on the right. Dictated by: Divya Stevenson M.D. on 09/19/2022 at 16:59 Approved by: Divya Stevenson M.D. on 09/19/2022 at 16:59
== END ==
PROVIDERS: Family Provider Nurse Practitioner; PCP Nurse Practitioner; Referring Provider Nurse Practitioner; Visit Provider Nurse Practitioner
DX: M43.17 Spondylolisthesis, lumbosacral region (principal); M25.551 Pain in right hip; M16.0 Bilateral primary osteoarthritis of hip; M54.50 Low back pain, unspecified
CPT/HCPCS: 72100; 73502

== ENCOUNTER → 2022-10-07 16:20 | Outpatient (CLI) | payer MEDICARE, SELFPAY ==
--- NOTE | 2022-10-07 16:21 | DI.MRI.S_ITS ---
PROCEDURE: MR LUMBAR SPINE WO CON INDICATIONS: Spinal stenosis, lumbar region TECHNIQUE: Noncontrast sagittal T1 spin echo and T2 fast echo, sagittal STIR, and T2 fast spin echo through the lumbar spine. In cases with scoliosis, additional coronal T2 fast spin echo may be performed. COMPARISON: None. FINDINGS: Image quality: This examination is limited by involuntary motion artifact. Alignment and Curvature: Grade 1 L5-S1 anterolisthesis is seen. Associated bilateral pars defects are seen. Bone Marrow: Marrow is of normal overall signal. No acute vertebral body compression fractures. Spinal Cord: Conus medullaris terminates at the L1-L2 level. Visualized cord demonstrates normal signal and size. Paraspinous Soft Tissues: No paravertebral masses. Numerous perineural cysts can be seen involving several exit foramina. Incidental note is made of a circumaortic left renal vein. T12-L1: Normal appearance. L1-L2: Normal appearance. L2-L3: Level within normal limits. L3-L4: No significant abnormality is seen. L4-L5: The disc height is well-preserved. Loss of disc signal is seen at this level. Mild generalized disc bulge is seen. There is a superimposed left subarticular/left foraminal disc extrusion, as on series 6, image 14 and on series 2, image 11, with superior migration of disc material. Mild facet joint hypertrophy is seen. There is at least moderate left-sided neural foraminal narrowing, with a degree of compression upon the exiting left L4 nerve root. Minimal central canal narrowing is seen. L5-S1: Moderate loss of disc height is seen. Loss of disc signal is seen. Moderate disc bulge is seen, which is eccentric to the right. There is moderate right-sided and mild left-sided facet hypertrophy. There is moderate to severe right-sided neural foraminal narrowing, with a degree of compression seen upon the exiting right L5 nerve root. Moderate left-sided neural foraminal narrowing is seen. No significant central canal narrowing can be seen. IMPRESSION: At L4-L5, there is a left foraminal disc extrusion, with superior migration of disc material. There is compression seen upon the exiting left L4 nerve root. At L5-S1, there is grade 1 anterolisthesis, with associated pars defects. On the right, there is moderate to severe neural foraminal narrowing, with associated compression upon the exiting right L5 nerve root. Dictated by: Jose J Lizarraga M.D. on 10/07/2022 at 18:06 Approved by: Jose J Lizarraga M.D. on 10/07/2022 at 18:09
== END ==
PROVIDERS: Family Provider Nurse Practitioner; PCP Nurse Practitioner; Referring Provider Orthopaedic Surgery Orthopaedic Surgery of the Spine; Visit Provider Orthopaedic Surgery Orthopaedic Surgery of the Spine
DX: M48.062 Spinal stenosis, lumbar region with neurogenic claudication (principal); M48.07 Spinal stenosis, lumbosacral region; M51.26 Other intervertebral disc displacement, lumbar region; M43.17 Spondylolisthesis, lumbosacral region
CPT/HCPCS: 72148

== ENCOUNTER → 2023-01-24 10:51 | Outpatient (CLI) | payer MEDICARE, SELFPAY ==
[2023-01-24 13:07] LABS: Add Manual Diff / Slide Review NO; Basophils Absolute Auto 0 /uL (0-100); Basophils Percent Auto 0.5 % (0-2); Eosinophils Absolute Auto 100 /uL (0-450); Eosinophils Percent Auto 1.4 % (2-4); Hematocrit 40.6 % (36-46); Hemoglobin 13.9 g/dL (12.0-16.0); Lymphocytes Absolute Auto 2200 /uL (1100-4500); Lymphocytes Percent Auto 36.6 % (25-40); Mean Corpuscular HGB Conc 34.3 % (30-36); Mean Corpuscular Hemoglobin 32.4 PG (26-34); Mean Corpuscular Volume 94.5 fL (80-100); Monocytes Absolute Auto 600 /uL (0-900); Monocytes Percent Auto 9.7 % (3-14); Neutrophils Absolute Auto 3200 /uL (1500-7000); Neutrophils Percent Auto 51.8 % (50-75); Platelet Count 218 X10^3/uL (150-400); White Blood Cell Count 6.1 X10^3/uL (4.5-11.0)
[2023-01-24 13:37] LABS: BUN Creatinine Ratio 17.6 (6-22); Blood Urea Nitrogen 16 mg/dL (7-17); Calcium 10.4 mg/dL (8.4-10.2); Carbon Dioxide 29 mmol/L (22-32); Chloride 98 mmol/L (98-107); Estimated Glomerular Filt Rate > 60 mL/min (>60); Glucose 89 mg/dL (80-110); HEMOLYSIS < 15 (0-50); Sodium 135 mmol/L (137-145)
== END ==
PROVIDERS: Family Provider Nurse Practitioner; PCP Nurse Practitioner; Referring Provider Orthopaedic Surgery Orthopaedic Surgery of the Spine; Visit Provider Orthopaedic Surgery Orthopaedic Surgery of the Spine
DX: Z01.818 Encounter for other preprocedural examination (principal); R73.9 Hyperglycemia, unspecified; Z01.812 Encounter for preprocedural laboratory examination
CPT/HCPCS: 36415; 80048; 83036; 85025; 93005

== ENCOUNTER 2023-01-31 09:00 | Outpatient (RCR) | payer MEDICARE, SELFPAY ==
--- NOTE | 2022-12-12 15:16 | PT.OIE ---
Current Diagnoses Sciatica, left side (12/12/22) Past Medical History (Last Updated 09/30/22 @ 14:45 by DALE Jimenez) Anterolisthesis of lumbar spine Chronic lower back pain Counseling regarding advanced care planning and goals of care Depression Elevated LFTs Fallen arch Foot pain (~1987) Hip pain (~2016) Hyperlipidemia Hypertension Hypothyroidism (~2013) Pars defect Presence of orthotic device Rosacea Tinnitus (~2005) Past Surgical History (Last Reviewed 09/30/22 @ 14:43 by DALE Jimenez) Anesthesia Uterine polyp (~2014) Visit Care Team Role Provider Type DALE Jimenez Family Provider Advanced Soft Top Installer Primary Care Provider Specialty: [facility] Address: [address] [place] [address], [facility] Email: [email or web address] DALE Keen Attending Provider Advanced Soft Top Installer Referring Provider Specialty: [facility] Address: [address] [place] [address], [address] Phone: Fax: Email: [email or web address] Physical Therapy Initial Evaluation PT-OP-A Visit Information Start: 12/09/22 16:56 Freq: Status: Active Protocol: Document 12/12/22 15:16 AM (Rec: 12/12/22 16:41 AM [id number]) Out-Patient Physical Therapy Visit Information Visit Information Visit Type Initial Evaluation Visit Start Time 15:18 Visit Stop Time 16:03 Total Visit Minutes 45 Visit Number 1 Evaluation Information Evaluation Date 12/12/22 PT-OP-B Current Condition Start: 12/09/22 16:56 Freq: Status: Active Protocol: Document 12/12/22 15:16 AM (Rec: 12/12/22 16:41 AM [id number]) Current Condition History of Current Condition Onset Date chronic, worsened in June 2022 Current Complaints R hip pain and low back pain. 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 Pt went to the lottery manager and got new shoes and a new orthotic. Pt reports that she has had R hip pain. Pt has had increase in R hip pain since June 2022 that feels mechanical. Pt was seen for L sciatic symptom that resolved with steroid/tramadol. Pt reports that she does swim 3x/ week. Pt reports pain at hip/ back with walking less than 1/ 4 mile. Difficuly with walking to mailbox. Difficulty with donning R shoe. Pt with difficulty with climbing stairs. Pt with difficulty getting on to ground for yard work. Prior Treatments and Tests Hip [id number], lumbar MRI-At L4-L5, there is a left foraminal disc extrusion, with superior migration of disc material. There is compression seen upon the exiting left L4 nerve root. At L5-S1, there is grade 1 anterolisthesis, with associated pars defects. On the right, there is moderate to severe neural foraminal narrowing, with associated compression upon the exiting right L5 nerve root. Future Testing and Treatments Planned Pt will see Dr. Matt Prior Functional Status Baseline Function- ADL's Independent Baseline Function- Mobility Independent Current Functional Impairments (Reported) Functional Limitations- ADL's Painful, difficulty with donning shoes Functional Limitations- Mobility/Gait Painful Functional Limitations- Recreation/ Unable to garden Hobbies PT-OP-C Subjective Start: 12/09/22 16:56 Freq: Status: Active Protocol: Document 12/12/22 15:16 AM (Rec: 12/12/22 16:41 AM [id number]) OP-PT Pain Assessment Pain Assessment Grid Paper Pain Assessment Grid Completed Yes Location R hip and low back Intensity 6 Scale Used Numeric (0 - 10) Description Aching,Radiating,Sharp Description- Other Pt reports 6/10 pain at worst Frequency Constant Pain Aggravating Factors ADL's,Exercise,Standing, Walking,Stair Climbing,Bending ,Lifting Pain Alleviating Factors Medication Home Pain Medication Use Pain Medications Used Yes Home Pain Medication Frequency tylenol and celebrex PT-OP-D Balance Start: 12/09/22 16:56 Freq: Status: Active Protocol: Document 12/12/22 15:16 AM (Rec: 12/12/22 16:41 AM [id number]) Balance Tests Single Limb Standing Single Limb- Right unable Single Limb- Left 2 PT-OP-E Functional Tests Start: 12/09/22 16:56 Freq: Status: Active Protocol: Document 12/12/22 15:16 AM (Rec: 12/12/22 16:41 AM [id number]) Functional Tests Five Times Sit to Stand Test Score 33.68 Other Standing flexion Name of Test Standing flexion Score 7.5 inches Comment distance measured from fingers to floor PT-OP-G Mobility & Gait Start: 12/09/22 16:56 Freq: Status: Active Protocol: Document 12/12/22 15:16 AM (Rec: 12/12/22 16:41 AM [id number]) OP Gait Assessment Gait Gait Assistance Required: Independent Assistive Devices Assistive Device None Gait Deviations General Gait Pattern Antalgic,Decreased Stride Length,Lateral Trunk Lean Factors Limiting Gait Function Factors Limiting Gait Function Decreased Activity Tolerance, Decreased Strength,Limited Range of Motion,Pain,Poor Balance Comments Gait Comments Pt with R lateral rotation at hip during gait PT-OP-J Posture/Palpation/Skin Start: 12/09/22 16:56 Freq: Status: Active Protocol: Document 12/12/22 15:16 AM (Rec: 12/12/22 16:41 AM [id number]) Posture Evaluation Position Standing L-Spine Posture Increased Lordosis Pelvis Posture (R) Rotated Anterior Ankle/Foot Posture (R) Pronated Foot Arch (R) Low Arch PT-OP-K Range of Motion Start: 12/09/22 16:56 Freq: Status: Active Protocol: Document 12/12/22 15:16 AM (Rec: 12/12/22 16:41 AM [id number]) Hip Goniometric Range of Motion Hip Left Active Flexion w/Knee Flexed 90 Internal Rotation 30 External Rotation 25 Comments Painful on R groin with L flexion. Right Active Hip ROM WFL No Testing Position sitting for rotation and supine for flexion Flexion w/Knee Flexed 90 Abduction 15 Internal Rotation 10 External Rotation 15 Comments Pt unable to do SLR secondray to pain with initiation of hip flexion. PT-OP-M Strength Start: 12/09/22 16:56 Freq: Status: Active Protocol: Document 12/12/22 15:16 AM (Rec: 12/12/22 16:41 AM [id number]) Hip Strength Hip Manual Muscle Testing Left Flexion (L2) 4 Good Abduction 4 Good Adduction 5 Normal External Rotation 4 Good Internal Rotation 4 Good Right Flexion (L2) 3 Fair Abduction 3+ Fair+ Adduction 4- Good- External Rotation 3 Fair Internal Rotation 3 Fair Knee Strength Knee Manual Muscle Testing Left Flexion (S2) 4 Good Extension (L3) 4 Good Right Flexion (S2) 4- Good- Extension (L3) 4 Good PT-OP-Q Treatments Start: 12/09/22 16:56 Freq: Status: Active Protocol: Document 12/12/22 15:16 AM (Rec: 12/12/22 16:41 AM [id number]) Therapeutic Exercises Supine Exercises hip adduction iso Side bilateral Equipment Used pillow between knees Reps/Minutes 6x5 sec Comments cues for abdominal control BKFO Side bilateral Reps/Minutes x5 Comments cues for abdominal control and to avoid painful range PT-OP-T Assessment and Plan Start: 12/09/22 16:56 Freq: Status: Active Protocol: Document 12/12/22 15:16 AM (Rec: 12/12/22 16:41 AM [id number]) Physical Therapy Assessment Rehab Potential Rehabilitation Potential Good Evaluation Complexity Number of Personal Factors/Comorbidities 1-2 Number of Body Systems Impaired 1-2 Clinical Presentation at Evaluation Stable Impairments Impairments Activity Tolerance,Balance, Coordination,Functional Activities,Functional Mobility ,Gait,Pain,Posture,ROM,Soft Tissue Mobility,Strength Goals Stairs Impairment Pt with pain and difficulty with ascending/descending stairs. Short Term Goal (STG) Pt able to ascend/descend 4 in step without increase in hip pain. STG Duration 01/02/23 Ortho Assistant Goal (LTG) Pt able to ascend/descend 6 in step without increase in hip pain. LTG Duration 01/23/23 Hip ROM Impairment Pt with limited R hip mobility secondary to pain. Short Term Goal (STG) Pt with 5 deg improvement in hip ROM in each direction. STG Duration 01/02/23 Ortho Assistant Goal (LTG) Pt with 8 deg improvement in hip ROM in each direction. LTG Duration 01/23/23 5xSTS test Impairment strength Impairment Pt with score of 33 sec on 5x STS test. Short Term Goal (STG) Pt with score of 28 sec on 5xSTS test. STG Duration 01/02/23 Ortho Assistant Goal (LTG) Pt with score of 23 sec on 5xSTS test. LTG Duration 01/23/23 Oswestry Impairment Pt with score of 48% on Oswestry. Ortho Assistant Goal (LTG) Pt with score of <25% on Oswestry. LTG Duration 01/23/23 Donning shoes Impairment Pt unable to don shoes without pain. Custodial Goal (LTG) Pt able to don shoes without increase in pain. LTG Duration 01/23/23 Assessment Summary Assessment Harleen Kaur presents to PT to address low back pain and R hip pain. Pt reports that L LE symptoms have resolved. Pt points to R SIJ as painful at low back, R glutes and R groin . Pt demonstrates difficulty bearing weight on to R LE with SLS secondary to discomfort. Pt limited in R hip ROM secondary to production of groin pain. Pt with fair lower abdominal control with BKFO and hip adduction isometrics. Pt encouraged to avoid painful ranges. Pt would benefit from continued PT to improve hip/ abdominal strength and to improve mobility as tolerated. Physical Therapy Plan Frequency and Duration Frequency of Treatment 2x/Week Duration of treatment (weeks) 6 Plan of Care Start Date 12/12/22 Plan of Care End Date 01/23/23 Therapeutic Interventions Therapeutic Interventions Balance Training,Gait Training ,Home Exercise Program,Joint Mobilizations,Manual Therapy, Neuromuscular Re-education, Patient/Caregiver Education, Self-Care/Home Management,Soft Tissue Mobilization,Taping, Therapeutic Activities, Therapeutic Exercises Modalities Cold Pack/Ice Massage,Electric Stimulation,Hot Packs, Ultrasound Next Visit Focus/Plan Next Note Type Treatment Note Next Visit Plan trial quadruped rock back to improve flexion, hip hinge, progress core strength while being mindful of R hip arthritis, initiate hip mobilizations if tolerated
--- NOTE | 2022-12-12 15:16 | PT.OPPOC ---
Physical, Occupational & Speech Therapy At [facility] Current Diagnoses Sciatica, left side (12/12/22) Visit Care Team Role Provider Type DALE Jimenez Family Provider Advanced Natural Developer Primary Care Provider Specialty: [facility] Practice Address: [address] [place] [address], [address] Email: [email or web address] DALE Keen Attending Provider Advanced Natural Developer Referring Provider Specialty: [facility] Practice Address: [facility], [place], [address] Phone: Fax: Email: [email or web address] Plan Of Care PT-OP-T Assessment and Plan Start: 12/09/22 16:56 Freq: Status: Active Protocol: Document 12/12/22 15:16 AM (Rec: 12/12/22 16:41 AM [id number]) Physical Therapy Assessment Rehab Potential Rehabilitation Potential Good Evaluation Complexity Number of Personal Factors/Comorbidities 1-2 Number of Body Systems Impaired 1-2 Clinical Presentation at Evaluation Stable Impairments Impairments Activity Tolerance,Balance, Coordination,Functional Activities,Functional Mobility ,Gait,Pain,Posture,ROM,Soft Tissue Mobility,Strength Goals Stairs Impairment Pt with pain and difficulty with ascending/descending stairs. Short Term Goal (STG) Pt able to ascend/descend 4 in step without increase in hip pain. STG Duration 01/02/23 Long-Term Goal (LTG) Pt able to ascend/descend 6 in step without increase in hip pain. LTG Duration 01/23/23 Hip ROM Impairment Pt with limited R hip mobility secondary to pain. Short Term Goal (STG) Pt with 5 deg improvement in hip ROM in each direction. STG Duration 01/02/23 Long-Term Goal (LTG) Pt with 8 deg improvement in hip ROM in each direction. LTG Duration 01/23/23 5xSTS test Impairment strength Impairment Pt with score of 33 sec on 5x STS test. Short Term Goal (STG) Pt with score of 28 sec on 5xSTS test. STG Duration 01/02/23 Long-Term Goal (LTG) Pt with score of 23 sec on 5xSTS test. LTG Duration 01/23/23 Oswestry Impairment Pt with score of 48% on Oswestry. Derrick Boat Lever Operator Goal (LTG) Pt with score of <25% on Oswestry. LTG Duration 01/23/23 Donning shoes Impairment Pt unable to don shoes without pain. Long-Term Goal (LTG) Pt able to don shoes without increase in pain. LTG Duration 01/23/23 Assessment Summary Assessment Harleen Kaur presents to PT to address low back pain and R hip pain. Pt reports that L LE symptoms have resolved. Pt points to R SIJ as painful at low back, R glutes and R groin . Pt demonstrates difficulty bearing weight on to R LE with SLS secondary to discomfort. Pt limited in R hip ROM secondary to production of groin pain. Pt with fair lower abdominal control with BKFO and hip adduction isometrics. Pt encouraged to avoid painful ranges. Pt would benefit from continued PT to improve hip/ abdominal strength and to improve mobility as tolerated. Physical Therapy Plan Frequency and Duration Frequency of Treatment 2x/Week Duration of treatment (weeks) 6 Plan of Care Start Date 12/12/22 Plan of Care End Date 01/23/23 Therapeutic Interventions Therapeutic Interventions Balance Training,Gait Training ,Home Exercise Program,Joint Mobilizations,Manual Therapy, Neuromuscular Re-education, Patient/Caregiver Education, Self-Care/Home Management,Soft Tissue Mobilization,Taping, Therapeutic Activities, Therapeutic Exercises Modalities Cold Pack/Ice Massage,Electric Stimulation,Hot Packs, Ultrasound Next Visit Focus/Plan Next Note Type Treatment Note Next Visit Plan trial quadruped rock back to improve flexion, hip hinge, progress core strength while being mindful of R hip arthritis, initiate hip mobilizations if tolerated Plan of Care Dates Plan of Care Start Date 12/12/22 Plan of Care End Date 01/23/23 Electronically Signed by: Elizabeth Hoover, PT 12/12/22 6009 If you are in agreement with this Plan of Care, please return a signed and dated copy. I have reviewed this Plan of Care and certify that the skilled therapy services above are required to meet the patient?s needs. Physician Signature Date Printed Name and Credentials Clinical Instructor Signature Printed Name and Credentials
--- NOTE | 2022-12-14 09:49 | PT.OTN ---
Current Diagnoses Sciatica, left side (12/14/22) Physical Therapy Treatment Note PT-OP-A Visit Information Start: 12/09/22 16:56 Freq: Status: Active Protocol: Document 12/14/22 09:49 AM (Rec: 12/14/22 10:46 AM [id number]) Out-Patient Physical Therapy Visit Information Visit Information Visit Type Treatment Note Visit Start Time 09:49 Visit Stop Time 10:33 Total Visit Minutes 44 Visit Number 2 PT-OP-B Current Condition Start: 12/09/22 16:56 Freq: Status: Active Protocol: Document 12/12/22 15:16 AM (Rec: 12/12/22 16:41 AM [id number]) Current Condition History of Current Condition Onset Date chronic, worsened in June 2022 Current Complaints R hip pain and low back pain. 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 Pt went to the anesthesiologists' assistant and got new shoes and a new orthotic. Pt reports that she has had R hip pain. Pt has had increase in R hip pain since June 2022 that feels mechanical. Pt was seen for L sciatic symptom that resolved with steroid/tramadol. Pt reports that she does swim 3x/ week. Pt reports pain at hip/ back with walking less than 1/ 4 mile. Difficuly with walking to mailbox. Difficulty with donning R shoe. Pt with difficulty with climbing stairs. Pt with difficulty getting on to ground for yard work. Prior Treatments and Tests Hip [id number], lumbar MRI-At L4-L5, there is a left foraminal disc extrusion, with superior migration of disc material. There is compression seen upon the exiting left L4 nerve root. At L5-S1, there is grade 1 anterolisthesis, with associated pars defects. On the right, there is moderate to severe neural foraminal narrowing, with associated compression upon the exiting right L5 nerve root. Future Testing and Treatments Planned Pt will see Dr. Matt Prior Functional Status Baseline Function- ADL's Independent Baseline Function- Mobility Independent Current Functional Impairments (Reported) Functional Limitations- ADL's Painful, difficulty with donning shoes Functional Limitations- Mobility/Gait Painful Functional Limitations- Recreation/ Unable to garden Hobbies PT-OP-C Subjective Start: 12/09/22 16:56 Freq: Status: Active Protocol: Document 12/14/22 09:49 AM (Rec: 12/14/22 10:46 AM [id number]) OP-PT Subjective Patient Comments Patient Comments Pt reports that she did some swimming today and her R hip is a little sore from that. Pt re PT-OP-D Balance Start: 12/09/22 16:56 Freq: Status: Active Protocol: Document 12/12/22 15:16 AM (Rec: 12/12/22 16:41 AM [id number]) Balance Tests Single Limb Standing Single Limb- Right unable Single Limb- Left 2 PT-OP-E Functional Tests Start: 12/09/22 16:56 Freq: Status: Active Protocol: Document 12/12/22 15:16 AM (Rec: 12/12/22 16:41 AM [id number]) Functional Tests Five Times Sit to Stand Test Score 33.68 Other Standing flexion Name of Test Standing flexion Score 7.5 inches Comment distance measured from fingers to floor PT-OP-G Mobility & Gait Start: 12/09/22 16:56 Freq: Status: Active Protocol: Document 12/12/22 15:16 AM (Rec: 12/12/22 16:41 AM [id number]) OP Gait Assessment Gait Gait Assistance Required: Independent Assistive Devices Assistive Device None Gait Deviations General Gait Pattern Antalgic,Decreased Stride Length,Lateral Trunk Lean Factors Limiting Gait Function Factors Limiting Gait Function Decreased Activity Tolerance, Decreased Strength,Limited Range of Motion,Pain,Poor Balance Comments Gait Comments Pt with R lateral rotation at hip during gait PT-OP-J Posture/Palpation/Skin Start: 12/09/22 16:56 Freq: Status: Active Protocol: Document 12/12/22 15:16 AM (Rec: 12/12/22 16:41 AM [id number]) Posture Evaluation Position Standing L-Spine Posture Increased Lordosis Pelvis Posture (R) Rotated Anterior Ankle/Foot Posture (R) Pronated Foot Arch (R) Low Arch PT-OP-K Range of Motion Start: 12/09/22 16:56 Freq: Status: Active Protocol: Document 12/12/22 15:16 AM (Rec: 12/12/22 16:41 AM [id number]) Hip Goniometric Range of Motion Hip Left Active Flexion w/Knee Flexed 90 Internal Rotation 30 External Rotation 25 Comments Painful on R groin with L flexion. Right Active Hip ROM WFL No Testing Position sitting for rotation and supine for flexion Flexion w/Knee Flexed 90 Abduction 15 Internal Rotation 10 External Rotation 15 Comments Pt unable to do SLR secondray to pain with initiation of hip flexion. PT-OP-M Strength Start: 12/09/22 16:56 Freq: Status: Active Protocol: Document 12/12/22 15:16 AM (Rec: 12/12/22 16:41 AM [id number]) Hip Strength Hip Manual Muscle Testing Left Flexion (L2) 4 Good Abduction 4 Good Adduction 5 Normal External Rotation 4 Good Internal Rotation 4 Good Right Flexion (L2) 3 Fair Abduction 3+ Fair+ Adduction 4- Good- External Rotation 3 Fair Internal Rotation 3 Fair Knee Strength Knee Manual Muscle Testing Left Flexion (S2) 4 Good Extension (L3) 4 Good Right Flexion (S2) 4- Good- Extension (L3) 4 Good PT-OP-Q Treatments Start: 12/09/22 16:56 Freq: Status: Active Protocol: Document 12/14/22 09:49 AM (Rec: 12/14/22 10:46 AM [id number]) Cardio Equipment Recumbent Stepper (Sci-Fit) Duration (Minutes) 2 Other produced pain, therefore stopped Therapeutic Exercises Supine Exercises SAQ Supine Exercise Name SAQ Side bilateral Resistance 2 Reps/Minutes 2x10 PPT Reps/Minutes 5x10 sec hip adduction iso Side bilateral Equipment Used pillow between knees Reps/Minutes 10x5 sec Comments cues for abdominal control BKFO Side bilateral Reps/Minutes x10 Comments cues for abdominal control and to avoid painful range Sitting Exercises LAQ Side bilateral Reps/Minutes 2x15 Standing Exercises Hip abduction Standing Exercise Name Attempted, though increased R LE pain Manual Therapy Treatment Soft Tissue Mobilization R hip Body Location R ITB, glutes, HS and quads Mobilization Type Myofascial Release,Rolling Intensity/Depth Moderate Body Position Sidelying Comments L sidelying with pillow between legs Joint Mobilizations S-I glide Joint R hip Direction S-I Grade II Body Position Hooklying PT-OP-T Assessment and Plan Start: 12/09/22 16:56 Freq: Status: Active Protocol: Document 12/14/22 09:49 AM (Rec: 12/14/22 10:46 AM [id number]) Physical Therapy Assessment Impairments Impairments Activity Tolerance,Balance, Coordination,Functional Activities,Functional Mobility ,Gait,Pain,Posture,ROM,Soft Tissue Mobility,Strength Goals Stairs Impairment Pt with pain and difficulty with ascending/descending stairs. Short Term Goal (STG) Pt able to ascend/descend 4 in step without increase in hip pain. STG Duration 01/02/23 Client Support Consultant Goal (LTG) Pt able to ascend/descend 6 in step without increase in hip pain. LTG Duration 01/23/23 Hip ROM Impairment Pt with limited R hip mobility secondary to pain. Short Term Goal (STG) Pt with 5 deg improvement in hip ROM in each direction. STG Duration 01/02/23 Client Support Consultant Goal (LTG) Pt with 8 deg improvement in hip ROM in each direction. LTG Duration 01/23/23 5xSTS test Impairment strength Impairment Pt with score of 33 sec on 5x STS test. Short Term Goal (STG) Pt with score of 28 sec on 5xSTS test. STG Duration 01/02/23 Client Support Consultant Goal (LTG) Pt with score of 23 sec on 5xSTS test. LTG Duration 01/23/23 Oswestry Impairment Pt with score of 48% on Oswestry. Client Support Consultant Goal (LTG) Pt with score of <25% on Oswestry. LTG Duration 01/23/23 Donning shoes Impairment Pt unable to don shoes without pain. Client Support Consultant Goal (LTG) Pt able to don shoes without increase in pain. LTG Duration 01/23/23 Assessment Summary Assessment Pt with reported decrease in symptoms following manual therapy today. Pt limited in exercises secondary to irritability of R hip. Symptoms monitored throughout session to avoid increase in pain. Pt would benefit from continued gradual increase in strength as tolerated per lumbar and hip symptoms. Physical Therapy Plan Frequency and Duration Frequency of Treatment 2x/Week Duration of treatment (weeks) 6 Plan of Care Start Date 12/12/22 Plan of Care End Date 01/23/23 Therapeutic Interventions Therapeutic Interventions Balance Training,Gait Training ,Home Exercise Program,Joint Mobilizations,Manual Therapy, Neuromuscular Re-education, Patient/Caregiver Education, Self-Care/Home Management,Soft Tissue Mobilization,Taping, Therapeutic Activities, Therapeutic Exercises Modalities Cold Pack/Ice Massage,Electric Stimulation,Hot Packs, Ultrasound Next Visit Focus/Plan Next Note Type Treatment Note Next Visit Plan trial quadruped rock back to improve flexion, hip hinge, progress core strength while being mindful of R hip arthritis, hip mobilizations if tolerated
--- NOTE | 2022-12-19 15:16 | PT.OTN ---
Current Diagnoses Sciatica, left side (12/19/22) Physical Therapy Treatment Note PT-OP-A Visit Information Start: 12/09/22 16:56 Freq: Status: Active Protocol: Document 12/19/22 15:16 AM (Rec: 12/19/22 17:00 AM [id number]) Out-Patient Physical Therapy Visit Information Visit Information Visit Type Treatment Note Visit Start Time 15:16 Visit Stop Time 16:00 Total Visit Minutes 44 Visit Number 3 PT-OP-B Current Condition Start: 12/09/22 16:56 Freq: Status: Active Protocol: Document 12/12/22 15:16 AM (Rec: 12/12/22 16:41 AM [id number]) Current Condition History of Current Condition Onset Date chronic, worsened in June 2022 Current Complaints R hip pain and low back pain. 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 Pt reports that she has had R hip pain. Pt has had increase in R hip pain since June 2022 that feels mechanical. Pt was seen for L sciatic symptom that resolved with steroid/tramadol. Pt reports that she does swim 3x/ week. Pt reports pain at hip/ back with walking less than 1/ 4 mile. Difficuly with walking to mailbox. Difficulty with donning R shoe. Pt with difficulty with climbing stairs. Pt with difficulty getting on to ground for yard work. Prior Treatments and Tests Hip [id number]-[id number], lumbar MRI-At L4-L5, there is a left foraminal disc extrusion, with superior migration of disc material. There is compression seen upon the exiting left L4 nerve root. At L5-S1, there is grade 1 anterolisthesis, with associated pars defects. On the right, there is moderate to severe neural foraminal narrowing, with associated compression upon the exiting right L5 nerve root. Future Testing and Treatments Planned Pt will see Dr. Matt Prior Functional Status Baseline Function- ADL's Independent Baseline Function- Mobility Independent Current Functional Impairments (Reported) Functional Limitations- ADL's Painful, difficulty with donning shoes Functional Limitations- Mobility/Gait Painful Functional Limitations- Recreation/ Unable to garden Hobbies PT-OP-C Subjective Start: 12/09/22 16:56 Freq: Status: Active Protocol: Document 12/19/22 15:16 AM (Rec: 12/19/22 17:00 AM [id number]) OP-PT Subjective Patient Comments Patient Comments Pt reports that her hip continues to be sore today. Pt reports that she will get an injection on Monday. PT-OP-D Balance Start: 12/09/22 16:56 Freq: Status: Active Protocol: Document 12/12/22 15:16 AM (Rec: 12/12/22 16:41 AM [id number]) Balance Tests Single Limb Standing Single Limb- Right unable Single Limb- Left 2 PT-OP-E Functional Tests Start: 12/09/22 16:56 Freq: Status: Active Protocol: Document 12/12/22 15:16 AM (Rec: 12/12/22 16:41 AM [id number]) Functional Tests Five Times Sit to Stand Test Score 33.68 Other Standing flexion Name of Test Standing flexion Score 7.5 inches Comment distance measured from fingers to floor PT-OP-G Mobility & Gait Start: 12/09/22 16:56 Freq: Status: Active Protocol: Document 12/12/22 15:16 AM (Rec: 12/12/22 16:41 AM [id number]) OP Gait Assessment Gait Gait Assistance Required: Independent Assistive Devices Assistive Device None Gait Deviations General Gait Pattern Antalgic,Decreased Stride Length,Lateral Trunk Lean Factors Limiting Gait Function Factors Limiting Gait Function Decreased Activity Tolerance, Decreased Strength,Limited Range of Motion,Pain,Poor Balance Comments Gait Comments Pt with R lateral rotation at hip during gait PT-OP-J Posture/Palpation/Skin Start: 12/09/22 16:56 Freq: Status: Active Protocol: Document 12/12/22 15:16 AM (Rec: 12/12/22 16:41 AM [id number]) Posture Evaluation Position Standing L-Spine Posture Increased Lordosis Pelvis Posture (R) Rotated Anterior Ankle/Foot Posture (R) Pronated Foot Arch (R) Low Arch PT-OP-K Range of Motion Start: 12/09/22 16:56 Freq: Status: Active Protocol: Document 12/12/22 15:16 AM (Rec: 12/12/22 16:41 AM [id number]) Hip Goniometric Range of Motion Hip Left Active Flexion w/Knee Flexed 90 Internal Rotation 30 External Rotation 25 Comments Painful on R groin with L flexion. Right Active Hip ROM WFL No Testing Position sitting for rotation and supine for flexion Flexion w/Knee Flexed 90 Abduction 15 Internal Rotation 10 External Rotation 15 Comments Pt unable to do SLR secondray to pain with initiation of hip flexion. PT-OP-M Strength Start: 12/09/22 16:56 Freq: Status: Active Protocol: Document 12/12/22 15:16 AM (Rec: 12/12/22 16:41 AM [id number]) Hip Strength Hip Manual Muscle Testing Left Flexion (L2) 4 Good Abduction 4 Good Adduction 5 Normal External Rotation 4 Good Internal Rotation 4 Good Right Flexion (L2) 3 Fair Abduction 3+ Fair+ Adduction 4- Good- External Rotation 3 Fair Internal Rotation 3 Fair Knee Strength Knee Manual Muscle Testing Left Flexion (S2) 4 Good Extension (L3) 4 Good Right Flexion (S2) 4- Good- Extension (L3) 4 Good PT-OP-Q Treatments Start: 12/09/22 16:56 Freq: Status: Active Protocol: Document 12/19/22 15:16 AM (Rec: 12/19/22 17:00 AM [id number]) Therapeutic Exercises Supine Exercises SAQ Supine Exercise Name SAQ Side bilateral Resistance 2 Reps/Minutes 2x10 hip adduction iso Side bilateral Equipment Used ball between knees Reps/Minutes 10x5 sec Comments cues for abdominal control BKFO Side bilateral Reps/Minutes x10 Comments cues for abdominal control and to avoid painful range Sitting Exercises LAQ Side bilateral Resistance 2# Reps/Minutes 2x10 Standing Exercises Hip hinge Standing Exercise Name Dowel hip hinge Resistance trekking pole Reps/Minutes x10 Other Exercises Quadruped rock back Reps/Minutes x10 Manual Therapy Treatment Soft Tissue Mobilization R hip Body Location R ITB, glutes, HS and quads Mobilization Type Myofascial Release,Rolling Intensity/Depth Moderate Body Position Sidelying Comments L sidelying with pillow between legs Joint Mobilizations S-I glide Joint R hip Direction S-I Grade II Body Position Hooklying PT-OP-T Assessment and Plan Start: 12/09/22 16:56 Freq: Status: Active Protocol: Document 12/19/22 15:16 AM (Rec: 12/19/22 17:00 AM [id number]) Physical Therapy Assessment Goals Stairs Impairment Pt with pain and difficulty with ascending/descending stairs. Short Term Goal (STG) Pt able to ascend/descend 4 in step without increase in hip pain. STG Duration 01/02/23 Escort Blind Goal (LTG) Pt able to ascend/descend 6 in step without increase in hip pain. LTG Duration 01/23/23 Hip ROM Impairment Pt with limited R hip mobility secondary to pain. Short Term Goal (STG) Pt with 5 deg improvement in hip ROM in each direction. STG Duration 01/02/23 Escort Blind Goal (LTG) Pt with 8 deg improvement in hip ROM in each direction. LTG Duration 01/23/23 5xSTS test Impairment strength Impairment Pt with score of 33 sec on 5x STS test. Short Term Goal (STG) Pt with score of 28 sec on 5xSTS test. STG Duration 01/02/23 Escort Blind Goal (LTG) Pt with score of 23 sec on 5xSTS test. LTG Duration 01/23/23 Oswestry Impairment Pt with score of 48% on Oswestry. Escort Blind Goal (LTG) Pt with score of <25% on Oswestry. LTG Duration 01/23/23 Donning shoes Impairment Pt unable to don shoes without pain. Escort Blind Goal (LTG) Pt able to don shoes without increase in pain. LTG Duration 01/23/23 Assessment Summary Assessment Pt continues to be challenged with AROM flexion. Pt with good tolerance to quadruped rock back without production of hip symptoms, which was added to HEP. Pt able to tolerate hip hinge, with cues for glute activation. Pt with reported decrease in symptoms following manual therapy. Pt would benefit from continued PT to gradually progress hip/ trunk strength as tolerated. Physical Therapy Plan Frequency and Duration Frequency of Treatment 2x/Week Duration of treatment (weeks) 6 Plan of Care Start Date 12/12/22 Plan of Care End Date 01/23/23 Therapeutic Interventions Therapeutic Interventions Balance Training,Gait Training ,Home Exercise Program,Joint Mobilizations,Manual Therapy, Neuromuscular Re-education, Patient/Caregiver Education, Self-Care/Home Management,Soft Tissue Mobilization,Taping, Therapeutic Activities, Therapeutic Exercises Modalities Cold Pack/Ice Massage,Electric Stimulation,Hot Packs, Ultrasound Next Visit Focus/Plan Next Note Type Treatment Note Next Visit Plan review quadruped rock back and hip hinge, progress core strength while being mindful of R hip arthritis, hip mobilizations if tolerated
--- NOTE | 2022-12-22 11:27 | PT.OTN ---
Current Diagnoses Sciatica, left side (12/22/22) Physical Therapy Treatment Note PT-OP-A Visit Information Start: 12/09/22 16:56 Freq: Status: Active Protocol: Document 12/22/22 11:27 AM (Rec: 12/22/22 18:05 AM [id number]) Out-Patient Physical Therapy Visit Information Visit Information Visit Type Treatment Note Visit Start Time 11:33 Visit Stop Time 12:15 Total Visit Minutes 42 Visit Number 4 PT-OP-B Current Condition Start: 12/09/22 16:56 Freq: Status: Active Protocol: Document 12/12/22 15:16 AM (Rec: 12/12/22 16:41 AM [id number]) Current Condition History of Current Condition Onset Date chronic, worsened in June 2022 Current Complaints R hip pain and low back pain. 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 Pt reports that she has had R hip pain. Pt has had increase in R hip pain since June 2022 that feels mechanical. Pt was seen for L sciatic symptom that resolved with steroid/tramadol. Pt reports that she does swim 3x/ week. Pt reports pain at hip/ back with walking less than 1/ 4 mile. Difficuly with walking to mailbox. Difficulty with donning R shoe. Pt with difficulty with climbing stairs. Pt with difficulty getting on to ground for yard work. Prior Treatments and Tests Hip x-xec-vbfxdmcea, lumbar MRI-At L4-L5, there is a left foraminal disc extrusion, with superior migration of disc material. There is compression seen upon the exiting left L4 nerve root. At L5-S1, there is grade 1 anterolisthesis, with associated pars defects. On the right, there is moderate to severe neural foraminal narrowing, with associated compression upon the exiting right L5 nerve root. Future Testing and Treatments Planned Pt will see Dr. Matt Prior Functional Status Baseline Function- ADL's Independent Baseline Function- Mobility Independent Current Functional Impairments (Reported) Functional Limitations- ADL's Painful, difficulty with donning shoes Functional Limitations- Mobility/Gait Painful Functional Limitations- Recreation/ Unable to garden Hobbies PT-OP-C Subjective Start: 12/09/22 16:56 Freq: Status: Active Protocol: Document 12/22/22 11:27 AM (Rec: 12/22/22 18:05 AM [id number]) OP-PT Subjective Patient Comments Patient Comments Pt reports that her hip is sore today. She reports that she will get her injection tomorrow. PT-OP-D Balance Start: 12/09/22 16:56 Freq: Status: Active Protocol: Document 12/12/22 15:16 AM (Rec: 12/12/22 16:41 AM [id number]) Balance Tests Single Limb Standing Single Limb- Right unable Single Limb- Left 2 PT-OP-E Functional Tests Start: 12/09/22 16:56 Freq: Status: Active Protocol: Document 12/12/22 15:16 AM (Rec: 12/12/22 16:41 AM [id number]) Functional Tests Five Times Sit to Stand Test Score 33.68 Other Standing flexion Name of Test Standing flexion Score 7.5 inches Comment distance measured from fingers to floor PT-OP-G Mobility & Gait Start: 12/09/22 16:56 Freq: Status: Active Protocol: Document 12/12/22 15:16 AM (Rec: 12/12/22 16:41 AM [id number]) OP Gait Assessment Gait Gait Assistance Required: Independent Assistive Devices Assistive Device None Gait Deviations General Gait Pattern Antalgic,Decreased Stride Length,Lateral Trunk Lean Factors Limiting Gait Function Factors Limiting Gait Function Decreased Activity Tolerance, Decreased Strength,Limited Range of Motion,Pain,Poor Balance Comments Gait Comments Pt with R lateral rotation at hip during gait PT-OP-J Posture/Palpation/Skin Start: 12/09/22 16:56 Freq: Status: Active Protocol: Document 12/12/22 15:16 AM (Rec: 12/12/22 16:41 AM [id number]) Posture Evaluation Position Standing L-Spine Posture Increased Lordosis Pelvis Posture (R) Rotated Anterior Ankle/Foot Posture (R) Pronated Foot Arch (R) Low Arch PT-OP-K Range of Motion Start: 12/09/22 16:56 Freq: Status: Active Protocol: Document 12/12/22 15:16 AM (Rec: 12/12/22 16:41 AM [id number]) Hip Goniometric Range of Motion Hip Left Active Flexion w/Knee Flexed 90 Internal Rotation 30 External Rotation 25 Comments Painful on R groin with L flexion. Right Active Hip ROM WFL No Testing Position sitting for rotation and supine for flexion Flexion w/Knee Flexed 90 Abduction 15 Internal Rotation 10 External Rotation 15 Comments Pt unable to do SLR secondray to pain with initiation of hip flexion. PT-OP-M Strength Start: 12/09/22 16:56 Freq: Status: Active Protocol: Document 12/12/22 15:16 AM (Rec: 12/12/22 16:41 AM [id number]) Hip Strength Hip Manual Muscle Testing Left Flexion (L2) 4 Good Abduction 4 Good Adduction 5 Normal External Rotation 4 Good Internal Rotation 4 Good Right Flexion (L2) 3 Fair Abduction 3+ Fair+ Adduction 4- Good- External Rotation 3 Fair Internal Rotation 3 Fair Knee Strength Knee Manual Muscle Testing Left Flexion (S2) 4 Good Extension (L3) 4 Good Right Flexion (S2) 4- Good- Extension (L3) 4 Good PT-OP-Q Treatments Start: 12/09/22 16:56 Freq: Status: Active Protocol: Document 12/22/22 11:27 AM (Rec: 12/22/22 18:05 AM [id number]) Therapeutic Exercises Supine Exercises Bridge Equipment Used orange swissball Reps/Minutes 2x10 Comments cues for ab and glute activation PPT Supine Exercise Name with ball push down (hands clasped) Resistance orange swissball Sitting Exercises LAQ Side bilateral Resistance 4# Reps/Minutes 2x10 Standing Exercises Hip hinge Equipment Used [employer] pole Reps/Minutes x10 Other Exercises Traction Comments Lumbar traction with feet over ball Cat/cow Reps/Minutes x5 Quadruped rock back Reps/Minutes x10 Manual Therapy Treatment Soft Tissue Mobilization R hip Body Location R ITB, glutes, HS and quads Mobilization Type Myofascial Release,Rolling Intensity/Depth Moderate Body Position Sidelying Comments L sidelying with pillow between legs Joint Mobilizations S-I glide Joint R hip Direction S-I Grade II Body Position Hooklying Self-Care/Home Management Treatment Education Other Education Avoid sitting with hip less greater than 90 degrees. PT-OP-T Assessment and Plan Start: 12/09/22 16:56 Freq: Status: Active Protocol: Document 12/22/22 11:27 AM (Rec: 12/22/22 18:05 AM [id number]) Physical Therapy Assessment Goals Stairs Impairment Pt with pain and difficulty with ascending/descending stairs. Short Term Goal (STG) Pt able to ascend/descend 4 in step without increase in hip pain. STG Duration 01/02/23 Prison Goal (LTG) Pt able to ascend/descend 6 in step without increase in hip pain. LTG Duration 01/23/23 Hip ROM Impairment Pt with limited R hip mobility secondary to pain. Short Term Goal (STG) Pt with 5 deg improvement in hip ROM in each direction. STG Duration 01/02/23 Grain Mixer Goal (LTG) Pt with 8 deg improvement in hip ROM in each direction. LTG Duration 01/23/23 5xSTS test Impairment strength Impairment Pt with score of 33 sec on 5x STS test. Short Term Goal (STG) Pt with score of 28 sec on 5xSTS test. STG Duration 01/02/23 Grain Mixer Goal (LTG) Pt with score of 23 sec on 5xSTS test. LTG Duration 01/23/23 Oswestry Impairment Pt with score of 48% on Oswestry. Prison Goal (LTG) Pt with score of <25% on Oswestry. LTG Duration 01/23/23 Donning shoes Impairment Pt unable to don shoes without pain. Prison Goal (LTG) Pt able to don shoes without increase in pain. LTG Duration 01/23/23 Assessment Summary Assessment Pt demonstrates improving hip flexion in quadruped position today. Pt with reported reduction in low back symptoms with cat/cow position. Pt with reported decrease in symptoms following tx session today. Pt would benefit from continued PT to progress hip and lumbar strength/mobility as tolerated. Physical Therapy Plan Frequency and Duration Frequency of Treatment 2x/Week Duration of treatment (weeks) 6 Plan of Care Start Date 12/12/22 Plan of Care End Date 01/23/23 Therapeutic Interventions Therapeutic Interventions Balance Training,Gait Training ,Home Exercise Program,Joint Mobilizations,Manual Therapy, Neuromuscular Re-education, Patient/Caregiver Education, Self-Care/Home Management,Soft Tissue Mobilization,Taping, Therapeutic Activities, Therapeutic Exercises Modalities Cold Pack/Ice Massage,Electric Stimulation,Hot Packs, Ultrasound Next Visit Focus/Plan Next Note Type Treatment Note Next Visit Plan review quadruped rock back and hip hinge, progress core strength while being mindful of R hip arthritis, hip mobilizations if tolerated
--- NOTE | 2022-12-28 09:51 | PT.OTN ---
Current Diagnoses Sciatica, left side (12/28/22) Physical Therapy Treatment Note PT-OP-A Visit Information Start: 12/09/22 16:56 Freq: Status: Active Protocol: Document 12/28/22 09:51 AM (Rec: 12/28/22 13:44 AM [id number]) Out-Patient Physical Therapy Visit Information Visit Information Visit Type Treatment Note Visit Start Time 09:51 Visit Stop Time 10:33 Total Visit Minutes 42 Visit Number 5 PT-OP-B Current Condition Start: 12/09/22 16:56 Freq: Status: Active Protocol: Document 12/12/22 15:16 AM (Rec: 12/12/22 16:41 AM [id number]) Current Condition History of Current Condition Onset Date chronic, worsened in June 2022 Current Complaints R hip pain and low back pain. 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 Pt reports that she has had R hip pain. Pt has had increase in R hip pain since June 2022 that feels mechanical. Pt was seen for L sciatic symptom that resolved with steroid/tramadol. Pt reports that she does swim 3x/ week. Pt reports pain at hip/ back with walking less than 1/ 4 mile. Difficuly with walking to mailbox. Difficulty with donning R shoe. Pt with difficulty with climbing stairs. Pt with difficulty getting on to ground for yard work. Prior Treatments and Tests Hip [id number], lumbar MRI-At L4-L5, there is a left foraminal disc extrusion, with superior migration of disc material. There is compression seen upon the exiting left L4 nerve root. At L5-S1, there is grade 1 anterolisthesis, with associated pars defects. On the right, there is moderate to severe neural foraminal narrowing, with associated compression upon the exiting right L5 nerve root. Future Testing and Treatments Planned Pt will see Dr. Matt Prior Functional Status Baseline Function- ADL's Independent Baseline Function- Mobility Independent Current Functional Impairments (Reported) Functional Limitations- ADL's Painful, difficulty with donning shoes Functional Limitations- Mobility/Gait Painful Functional Limitations- Recreation/ Unable to garden Hobbies PT-OP-C Subjective Start: 12/09/22 16:56 Freq: Status: Active Protocol: Document 12/28/22 09:51 AM (Rec: 12/28/22 13:44 AM [id number]) OP-PT Subjective Patient Comments Patient Comments Pt reports that she got an injection at her R hip. Pt reports minimal noticeable difference. Pt reports that she went to the pool today, which helps loosen her up a bit. PT-OP-D Balance Start: 12/09/22 16:56 Freq: Status: Active Protocol: Document 12/12/22 15:16 AM (Rec: 12/12/22 16:41 AM [id number]) Balance Tests Single Limb Standing Single Limb- Right unable Single Limb- Left 2 PT-OP-E Functional Tests Start: 12/09/22 16:56 Freq: Status: Active Protocol: Document 12/12/22 15:16 AM (Rec: 12/12/22 16:41 AM [id number]) Functional Tests Five Times Sit to Stand Test Score 33.68 Other Standing flexion Name of Test Standing flexion Score 7.5 inches Comment distance measured from fingers to floor PT-OP-G Mobility & Gait Start: 12/09/22 16:56 Freq: Status: Active Protocol: Document 12/12/22 15:16 AM (Rec: 12/12/22 16:41 AM [id number]) OP Gait Assessment Gait Gait Assistance Required: Independent Assistive Devices Assistive Device None Gait Deviations General Gait Pattern Antalgic,Decreased Stride Length,Lateral Trunk Lean Factors Limiting Gait Function Factors Limiting Gait Function Decreased Activity Tolerance, Decreased Strength,Limited Range of Motion,Pain,Poor Balance Comments Gait Comments Pt with R lateral rotation at hip during gait PT-OP-J Posture/Palpation/Skin Start: 12/09/22 16:56 Freq: Status: Active Protocol: Document 12/12/22 15:16 AM (Rec: 12/12/22 16:41 AM [id number]) Posture Evaluation Position Standing L-Spine Posture Increased Lordosis Pelvis Posture (R) Rotated Anterior Ankle/Foot Posture (R) Pronated Foot Arch (R) Low Arch PT-OP-K Range of Motion Start: 12/09/22 16:56 Freq: Status: Active Protocol: Document 12/12/22 15:16 AM (Rec: 12/12/22 16:41 AM [id number]) Hip Goniometric Range of Motion Hip Left Active Flexion w/Knee Flexed 90 Internal Rotation 30 External Rotation 25 Comments Painful on R groin with L flexion. Right Active Hip ROM WFL No Testing Position sitting for rotation and supine for flexion Flexion w/Knee Flexed 90 Abduction 15 Internal Rotation 10 External Rotation 15 Comments Pt unable to do SLR secondray to pain with initiation of hip flexion. PT-OP-M Strength Start: 12/09/22 16:56 Freq: Status: Active Protocol: Document 12/12/22 15:16 AM (Rec: 12/12/22 16:41 AM [id number]) Hip Strength Hip Manual Muscle Testing Left Flexion (L2) 4 Good Abduction 4 Good Adduction 5 Normal External Rotation 4 Good Internal Rotation 4 Good Right Flexion (L2) 3 Fair Abduction 3+ Fair+ Adduction 4- Good- External Rotation 3 Fair Internal Rotation 3 Fair Knee Strength Knee Manual Muscle Testing Left Flexion (S2) 4 Good Extension (L3) 4 Good Right Flexion (S2) 4- Good- Extension (L3) 4 Good PT-OP-Q Treatments Start: 12/09/22 16:56 Freq: Status: Active Protocol: Document 12/28/22 09:51 AM (Rec: 12/28/22 13:44 AM [id number]) Therapeutic Exercises Prone Exercises Hip ext Prone Exercise Name prone hip ext Reps/Minutes 2x10 Comments 2 pillows under hips, cues for abs and glutes Other Exercises Cat/cow Reps/Minutes x5 Quadruped rock back Reps/Minutes x5 Comments cues for trunk stab Manual Therapy Treatment Soft Tissue Mobilization R hip Body Location R ITB, glutes, HS and quads Mobilization Type Myofascial Release,Rolling Intensity/Depth Moderate Body Position Sidelying Comments L sidelying with pillow between legs Joint Mobilizations S-I glide Joint R hip Direction S-I Grade II Body Position Hooklying Manual Techniques Manual quad stretch Reps/Duration 2x30 sec Comments Prone with 2 pillows under hips Traction Body Location hooklying with LE over ball Comments LE over swissball, gentle pull on feet for lumbar traction PT-OP-T Assessment and Plan Start: 12/09/22 16:56 Freq: Status: Active Protocol: Document 12/28/22 09:51 AM (Rec: 12/28/22 13:44 AM [id number]) Physical Therapy Assessment Goals Stairs Impairment Pt with pain and difficulty with ascending/descending stairs. Short Term Goal (STG) Pt able to ascend/descend 4 in step without increase in hip pain. STG Duration 01/02/23 [facility] Goal (LTG) Pt able to ascend/descend 6 in step without increase in hip pain. LTG Duration 01/23/23 Hip ROM Impairment Pt with limited R hip mobility secondary to pain. Short Term Goal (STG) Pt with 5 deg improvement in hip ROM in each direction. STG Duration 01/02/23 [facility] Goal (LTG) Pt with 8 deg improvement in hip ROM in each direction. LTG Duration 01/23/23 5xSTS test Impairment strength Impairment Pt with score of 33 sec on 5x STS test. Short Term Goal (STG) Pt with score of 28 sec on 5xSTS test. STG Duration 01/02/23 Extermination Inspector Goal (LTG) Pt with score of 23 sec on 5xSTS test. LTG Duration 01/23/23 Oswestry Impairment Pt with score of 48% on Oswestry. Extermination Inspector Goal (LTG) Pt with score of <25% on Oswestry. LTG Duration 01/23/23 Donning shoes Impairment Pt unable to don shoes without pain. Extermination Inspector Goal (LTG) Pt able to don shoes without increase in pain. LTG Duration 01/23/23 Assessment Summary Assessment Pt demonstrates improvement in hip flexion mobility tolerance to with quadruped rock back today. Pt continues to have difficulty with hip flexion with gait. Pt able to tolerate prone extension with cues for abdominal stabilization and glute activation. Pt with increased difficulty on R compared to L. Pt with reported decrease following tx session today. Pt would benefit from continued PT to progress R LE and trunk strength/mobility to improve tolerance to functional tasks. Physical Therapy Plan Frequency and Duration Frequency of Treatment 2x/Week Duration of treatment (weeks) 6 Plan of Care Start Date 12/12/22 Plan of Care End Date 01/23/23 Therapeutic Interventions Therapeutic Interventions Balance Training,Gait Training ,Home Exercise Program,Joint Mobilizations,Manual Therapy, Neuromuscular Re-education, Patient/Caregiver Education, Self-Care/Home Management,Soft Tissue Mobilization,Taping, Therapeutic Activities, Therapeutic Exercises Modalities Cold Pack/Ice Massage,Electric Stimulation,Hot Packs, Ultrasound Next Visit Focus/Plan Next Note Type Treatment Note Next Visit Plan review hip hinge and prone ext , progress core strength while being mindful of R hip arthritis, hip mobilizations if tolerated
--- NOTE | 2022-12-30 10:53 | PT.OTN ---
Current Diagnoses Sciatica, left side (12/30/22) Physical Therapy Treatment Note PT-OP-A Visit Information Start: 12/09/22 16:56 Freq: Status: Active Protocol: Document 12/30/22 10:20 NM (Rec: 12/30/22 10:45 NM [id number]) Out-Patient Physical Therapy Visit Information Visit Information Visit Type Treatment Note Visit Start Time 09:40 Visit Stop Time 10:20 Total Visit Minutes 40 Visit Number 6 PT-OP-B Current Condition Start: 12/09/22 16:56 Freq: Status: Active Protocol: Document 12/12/22 15:16 AM (Rec: 12/12/22 16:41 AM [id number]) Current Condition History of Current Condition Onset Date chronic, worsened in June 2022 Current Complaints R hip pain and low back pain. 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 Pt reports that she has had R hip pain. Pt has had increase in R hip pain since June 2022 that feels mechanical. Pt was seen for L sciatic symptom that resolved with steroid/tramadol. Pt reports that she does swim 3x/ week. Pt reports pain at hip/ back with walking less than 1/ 4 mile. Difficuly with walking to mailbox. Difficulty with donning R shoe. Pt with difficulty with climbing stairs. Pt with difficulty getting on to ground for yard work. Prior Treatments and Tests Hip [id number], lumbar MRI-At L4-L5, there is a left foraminal disc extrusion, with superior migration of disc material. There is compression seen upon the exiting left L4 nerve root. At L5-S1, there is grade 1 anterolisthesis, with associated pars defects. On the right, there is moderate to severe neural foraminal narrowing, with associated compression upon the exiting right L5 nerve root. Future Testing and Treatments Planned Pt will see Dr. Matt Prior Functional Status Baseline Function- ADL's Independent Baseline Function- Mobility Independent Current Functional Impairments (Reported) Functional Limitations- ADL's Painful, difficulty with donning shoes Functional Limitations- Mobility/Gait Painful Functional Limitations- Recreation/ Unable to garden Hobbies PT-OP-C Subjective Start: 12/09/22 16:56 Freq: Status: Active Protocol: Document 12/30/22 10:20 NM (Rec: 12/30/22 10:45 NM [id number]) OP-PT Subjective Patient Comments Patient Comments Pt reports that she went swimming this morning, and her R hip is sore/achy (steady ). PT-OP-D Balance Start: 12/09/22 16:56 Freq: Status: Active Protocol: Document 12/12/22 15:16 AM (Rec: 12/12/22 16:41 AM [id number]) Balance Tests Single Limb Standing Single Limb- Right unable Single Limb- Left 2 PT-OP-E Functional Tests Start: 12/09/22 16:56 Freq: Status: Active Protocol: Document 12/12/22 15:16 AM (Rec: 12/12/22 16:41 AM [id number]) Functional Tests Five Times Sit to Stand Test Score 33.68 Other Standing flexion Name of Test Standing flexion Score 7.5 inches Comment distance measured from fingers to floor PT-OP-G Mobility & Gait Start: 12/09/22 16:56 Freq: Status: Active Protocol: Document 12/12/22 15:16 AM (Rec: 12/12/22 16:41 AM [id number]) OP Gait Assessment Gait Gait Assistance Required: Independent Assistive Devices Assistive Device None Gait Deviations General Gait Pattern Antalgic,Decreased Stride Length,Lateral Trunk Lean Factors Limiting Gait Function Factors Limiting Gait Function Decreased Activity Tolerance, Decreased Strength,Limited Range of Motion,Pain,Poor Balance Comments Gait Comments Pt with R lateral rotation at hip during gait PT-OP-J Posture/Palpation/Skin Start: 12/09/22 16:56 Freq: Status: Active Protocol: Document 12/12/22 15:16 AM (Rec: 12/12/22 16:41 AM [id number]) Posture Evaluation Position Standing L-Spine Posture Increased Lordosis Pelvis Posture (R) Rotated Anterior Ankle/Foot Posture (R) Pronated Foot Arch (R) Low Arch PT-OP-K Range of Motion Start: 12/09/22 16:56 Freq: Status: Active Protocol: Document 12/12/22 15:16 AM (Rec: 12/12/22 16:41 AM [id number]) Hip Goniometric Range of Motion Hip Left Active Flexion w/Knee Flexed 90 Internal Rotation 30 External Rotation 25 Comments Painful on R groin with L flexion. Right Active Hip ROM WFL No Testing Position sitting for rotation and supine for flexion Flexion w/Knee Flexed 90 Abduction 15 Internal Rotation 10 External Rotation 15 Comments Pt unable to do SLR secondray to pain with initiation of hip flexion. PT-OP-M Strength Start: 12/09/22 16:56 Freq: Status: Active Protocol: Document 12/12/22 15:16 AM (Rec: 12/12/22 16:41 AM [id number]) Hip Strength Hip Manual Muscle Testing Left Flexion (L2) 4 Good Abduction 4 Good Adduction 5 Normal External Rotation 4 Good Internal Rotation 4 Good Right Flexion (L2) 3 Fair Abduction 3+ Fair+ Adduction 4- Good- External Rotation 3 Fair Internal Rotation 3 Fair Knee Strength Knee Manual Muscle Testing Left Flexion (S2) 4 Good Extension (L3) 4 Good Right Flexion (S2) 4- Good- Extension (L3) 4 Good PT-OP-Q Treatments Start: 12/09/22 16:56 Freq: Status: Active Protocol: Document 12/30/22 10:20 NM (Rec: 12/30/22 10:45 NM [id number]) Therapeutic Exercises Supine Exercises Bridge Equipment Used table Reps/Minutes 2x10 Comments cues for ab, glute activation; no su[place]ese ball d/t discomfort in hip Prone Exercises Hip ext Prone Exercise Name prone hip ext Reps/Minutes 2x10 Comments 1 pillow under hips for hip flexor stretch, cues for glute activation Sidelying Exercises Clam shells Side bilateral Reps/Minutes 2x10 Comments vc and tc for hips to be neutral, stay in pain free range wiht R hip Sitting Exercises Seated hip hinge Reps/Minutes x10 [address] of standing hip hinge ; cues for upright posture, core stab Seated March Side bilateral Resistance Manual (pt's hands) Equipment Used pt's hands Reps/Minutes x10 Comments cues for trunk stab, core; RLE more painful, less ROM than LLE Standing Exercises Hip hinge Comments attempted today but experienced increasing discomfort at R ant hip Other Exercises Cat/cow Reps/Minutes 2x10 Comments ROM increased with repetition Quadruped rock back Reps/Minutes 2x10 Comments cues for trunk stab; ROM increased with repetitions Manual Therapy Treatment Manual Techniques Manual quad stretch Reps/Duration 2x30 Comments prone with 1 pillow under hips PT-OP-T Assessment and Plan Start: 12/09/22 16:56 Freq: Status: Active Protocol: Document 12/30/22 10:20 NM (Rec: 12/30/22 10:45 NM [id number]) Physical Therapy Assessment Goals Stairs Impairment Pt with pain and difficulty with ascending/descending stairs. Short Term Goal (STG) Pt able to ascend/descend 4 in step without increase in hip pain. STG Duration 01/02/23 Cans Vacuum Tester Goal (LTG) Pt able to ascend/descend 6 in step without increase in hip pain. LTG Duration 01/23/23 Hip ROM Impairment Pt with limited R hip mobility secondary to pain. Short Term Goal (STG) Pt with 5 deg improvement in hip ROM in each direction. STG Duration 01/02/23 Cans Vacuum Tester Goal (LTG) Pt with 8 deg improvement in hip ROM in each direction. LTG Duration 01/23/23 5xSTS test Impairment strength Impairment Pt with score of 33 sec on 5x STS test. Short Term Goal (STG) Pt with score of 28 sec on 5xSTS test. STG Duration 01/02/23 Cans Vacuum Tester Goal (LTG) Pt with score of 23 sec on 5xSTS test. LTG Duration 01/23/23 Oswestry Impairment Pt with score of 48% on Oswestry. Cans Vacuum Tester Goal (LTG) Pt with score of <25% on Oswestry. LTG Duration 01/23/23 Donning shoes Impairment Pt unable to don shoes without pain. Cans Vacuum Tester Goal (LTG) Pt able to don shoes without increase in pain. LTG Duration 01/23/23 Assessment Summary Assessment Pt tolerated treatment fair but is limited by R hip pain today. Demonstrates improved hip flexion and extension mobility and overall tolerance for mobility exercises. Requires cues for trunk/core stabilization to prevent compensations, especially during hip flexion. Continues to have difficulty with R hip flexion secondary to pain, especially while advancing RLE during gait or during bed mobility. Demonstrates improved mobility and activity tolerance in low back with no instances of low back pain today. Pt would benefit from skilled physical therapy to continue to address hip and trunk strength, mobility deficits, activity tolerance, and pain management . Physical Therapy Plan Frequency and Duration Frequency of Treatment 2x/Week Duration of treatment (weeks) 6 Plan of Care Start Date 12/12/22 Plan of Care End Date 01/23/23 Therapeutic Interventions Therapeutic Interventions Balance Training,Gait Training ,Home Exercise Program,Joint Mobilizations,Manual Therapy, Neuromuscular Re-education, Patient/Caregiver Education, Self-Care/Home Management,Soft Tissue Mobilization,Taping, Therapeutic Activities, Therapeutic Exercises Modalities Cold Pack/Ice Massage,Electric Stimulation,Hot Packs, Ultrasound Next Visit Focus/Plan Next Note Type Treatment Note Next Visit Plan Re-attempt hip hinge in standing, progress trunk and core strengthening. Continue with hip strengthening
--- NOTE | 2023-01-03 10:34 | PT.OTN ---
Current Diagnoses Sciatica, left side (01/03/23) Physical Therapy Treatment Note PT-OP-A Visit Information Start: 12/09/22 16:56 Freq: Status: Active Protocol: Document 01/03/23 10:34 AM (Rec: 01/03/23 10:42 AM [id number]) Out-Patient Physical Therapy Visit Information Visit Information Visit Type Progress Note Visit Start Time 10:34 Visit Stop Time 11:20 Total Visit Minutes 46 Visit Number 7 PT-OP-B Current Condition Start: 12/09/22 16:56 Freq: Status: Active Protocol: Document 12/12/22 15:16 AM (Rec: 12/12/22 16:41 AM [id number]) Current Condition History of Current Condition Onset Date chronic, worsened in June 2022 Current Complaints R hip pain and low back pain. 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 Pt reports that she has had R hip pain. Pt has had increase in R hip pain since June 2022 that feels mechanical. Pt was seen for L sciatic symptom that resolved with steroid/tramadol. Pt reports that she does swim 3x/ week. Pt reports pain at hip/ back with walking less than 1/ 4 mile. Difficuly with walking to mailbox. Difficulty with donning R shoe. Pt with difficulty with climbing stairs. Pt with difficulty getting on to ground for yard work. Prior Treatments and Tests Hip [id number], lumbar MRI-At L4-L5, there is a left foraminal disc extrusion, with superior migration of disc material. There is compression seen upon the exiting left L4 nerve root. At L5-S1, there is grade 1 anterolisthesis, with associated pars defects. On the right, there is moderate to severe neural foraminal narrowing, with associated compression upon the exiting right L5 nerve root. Future Testing and Treatments Planned Pt will see Dr. Matt Prior Functional Status Baseline Function- ADL's Independent Baseline Function- Mobility Independent Current Functional Impairments (Reported) Functional Limitations- ADL's Painful, difficulty with donning shoes Functional Limitations- Mobility/Gait Painful Functional Limitations- Recreation/ Unable to garden Hobbies PT-OP-C Subjective Start: 12/09/22 16:56 Freq: Status: Active Protocol: Document 01/03/23 10:34 AM (Rec: 01/03/23 11:43 AM [id number]) OP-PT Subjective Patient Comments Patient Comments Pt reports that her hip is feeling better the last couple of days, though pt is unsure of what she has done differently. Pt reports that she was not as active yesterday. Pt reports that she is going to have an adjustment done on her orthotics to increase supination to see if that helps with her hip pain. PT-OP-D Balance Start: 12/09/22 16:56 Freq: Status: Active Protocol: Document 12/12/22 15:16 AM (Rec: 12/12/22 16:41 AM [id number]) Balance Tests Single Limb Standing Single Limb- Right unable Single Limb- Left 2 PT-OP-E Functional Tests Start: 12/09/22 16:56 Freq: Status: Active Protocol: Document 01/03/23 10:34 AM (Rec: 01/03/23 10:46 AM [id number]) Functional Tests Five Times Sit to Stand Test Score 23 seconds Comments 20 inch hi-low table PT-OP-G Mobility & Gait Start: 12/09/22 16:56 Freq: Status: Active Protocol: Document 12/12/22 15:16 AM (Rec: 12/12/22 16:41 AM [id number]) OP Gait Assessment Gait Gait Assistance Required: Independent Assistive Devices Assistive Device None Gait Deviations General Gait Pattern Antalgic,Decreased Stride Length,Lateral Trunk Lean Factors Limiting Gait Function Factors Limiting Gait Function Decreased Activity Tolerance, Decreased Strength,Limited Range of Motion,Pain,Poor Balance Comments Gait Comments Pt with R lateral rotation at hip during gait PT-OP-J Posture/Palpation/Skin Start: 12/09/22 16:56 Freq: Status: Active Protocol: Document 12/12/22 15:16 AM (Rec: 12/12/22 16:41 AM [id number]) Posture Evaluation Position Standing L-Spine Posture Increased Lordosis Pelvis Posture (R) Rotated Anterior Ankle/Foot Posture (R) Pronated Foot Arch (R) Low Arch PT-OP-K Range of Motion Start: 12/09/22 16:56 Freq: Status: Active Protocol: Document 01/03/23 10:34 AM (Rec: 01/03/23 10:46 AM [id number]) Hip Goniometric Range of Motion Hip Left Active Internal Rotation 35 External Rotation 30 Right Active Internal Rotation 15 External Rotation 22 PT-OP-M Strength Start: 12/09/22 16:56 Freq: Status: Active Protocol: Document 12/12/22 15:16 AM (Rec: 12/12/22 16:41 AM [id number]) Hip Strength Hip Manual Muscle Testing Left Flexion (L2) 4 Good Abduction 4 Good Adduction 5 Normal External Rotation 4 Good Internal Rotation 4 Good Right Flexion (L2) 3 Fair Abduction 3+ Fair+ Adduction 4- Good- External Rotation 3 Fair Internal Rotation 3 Fair Knee Strength Knee Manual Muscle Testing Left Flexion (S2) 4 Good Extension (L3) 4 Good Right Flexion (S2) 4- Good- Extension (L3) 4 Good PT-OP-Q Treatments Start: 12/09/22 16:56 Freq: Status: Active Protocol: Document 01/03/23 10:34 AM (Rec: 01/03/23 10:46 AM [id number]) Therapeutic Exercises Supine Exercises HS curls Supine Exercise Name Feet on swissball, cues for hamstring activation with knee flexion Equipment Used orange [place] Bridge Equipment Used [place] Reps/Minutes 2x10 Comments cues for ab, glute activation; no cambodian ball d/t discomfort in hip Prone Exercises Hip ext Prone Exercise Name prone hip ext Reps/Minutes 2x10 Comments 1 pillow under hips for hip flexor stretch, cues for glute activation Other Exercises Cat/cow Reps/Minutes x10 Comments ROM increased with repetition Quadruped rock back Reps/Minutes x10 Comments cues for trunk stab; ROM increased with repetitions Manual Therapy Treatment Soft Tissue Mobilization R hip Body Location R quads, HS, glutes in L sidelying Mobilization Type Myofascial Release,Rolling Intensity/Depth Moderate Joint Mobilizations S-I glide Joint S-I mobs Grade III Manual Techniques Manual quad stretch Reps/Duration 2x30 Comments prone with 1 pillow under hips Traction Type Traction with LE on swissball Self-Care/Home Management Treatment Education Patient Education Body Mechanics Other Education Pt with increase in sxs with ascending 4 in step with R LE leading. Pt cued to ascend with L LE and descend with R LE leading to decrease hip irritability. PT-OP-T Assessment and Plan Start: 12/09/22 16:56 Freq: Status: Active Protocol: Document 01/03/23 10:34 AM (Rec: 01/03/23 10:42 AM [id number]) Physical Therapy Assessment Goals Stairs Impairment Pt with pain and difficulty with ascending/descending stairs. Short Term Goal (STG) Pt able to ascend/descend 4 in step without increase in hip pain. 01/02/23: Pt with reported mild increase in hip pain with ascending/descending 4 in step with hand rails. STG Duration 01/02/23 Drug Abuse Social Worker Goal (LTG) Pt able to ascend/descend 6 in step without increase in hip pain. LTG Duration 01/23/23 Hip ROM Impairment Pt with limited R hip mobility secondary to pain. Short Term Goal (STG) Pt with 5 deg improvement in hip ROM in each direction. STG Duration 01/02/23 Drug Abuse Social Worker Goal (LTG) Pt with 8 deg improvement in hip ROM in each direction. LTG Duration 01/23/23 5xSTS test Impairment strength Impairment Pt with score of 33 sec on 5x STS test. Short Term Goal (STG) Pt with score of 28 sec on 5xSTS test. 01/03/23: Goal met STG Duration 01/02/23 Drug Abuse Social Worker Goal (LTG) Pt with score of 23 sec on 5xSTS test. LTG Duration 01/23/23 Oswestry Impairment Pt with score of 48% on Oswestry. [facility] Goal (LTG) Pt with score of <25% on Oswestry. LTG Duration 01/23/23 Donning shoes Impairment Pt unable to don shoes without pain. Drug Abuse Social Worker Goal (LTG) Pt able to don shoes without increase in pain. LTG Duration 01/23/23 Assessment Summary Assessment Pt with reported decrease in sxs following tx session today . Pt demonstrates pelvic rotation with R hip extension, requiring cueing for abdominal stab. Pt with slight increase in R hip pain with ascending stairs, therfore instructed to ascend with L LE and descend with R LE at home to decrease hip irritability. Pt tolerated all exercises well today without report of increased symptoms. Physical Therapy Plan Frequency and Duration Frequency of Treatment 2x/Week Duration of treatment (weeks) 6 Plan of Care Start Date 12/12/22 Plan of Care End Date 01/23/23 Therapeutic Interventions Therapeutic Interventions Balance Training,Gait Training ,Home Exercise Program,Joint Mobilizations,Manual Therapy, Neuromuscular Re-education, Patient/Caregiver Education, Self-Care/Home Management,Soft Tissue Mobilization,Taping, Therapeutic Activities, Therapeutic Exercises Modalities Cold Pack/Ice Massage,Electric Stimulation,Hot Packs, Ultrasound Next Visit Focus/Plan Next Note Type Treatment Note Next Visit Plan Re-attempt hip hinge in standing, progress trunk and core strengthening. Continue with hip strengthening
--- NOTE | 2023-01-06 09:03 | PT.OTN ---
Current Diagnoses Sciatica, left side (01/06/23) Physical Therapy Treatment Note PT-OP-A Visit Information Start: 12/09/22 16:56 Freq: Status: Active Protocol: Document 01/06/23 09:03 AM (Rec: 01/06/23 09:48 AM [id number]) Out-Patient Physical Therapy Visit Information Visit Information Visit Type Treatment Note Visit Start Time 09:03 Visit Stop Time 09:46 Total Visit Minutes 43 Visit Number 8 PT-OP-B Current Condition Start: 12/09/22 16:56 Freq: Status: Active Protocol: Document 12/12/22 15:16 AM (Rec: 12/12/22 16:41 AM [id number]) Current Condition History of Current Condition Onset Date chronic, worsened in June 2022 Current Complaints R hip pain and low back pain. 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 Pt reports that she has had R hip pain. Pt has had increase in R hip pain since June 2022 that feels mechanical. Pt was seen for L sciatic symptom that resolved with steroid/tramadol. Pt reports that she does swim 3x/ week. Pt reports pain at hip/ back with walking less than 1/ 4 mile. Difficuly with walking to mailbox. Difficulty with donning R shoe. Pt with difficulty with climbing stairs. Pt with difficulty getting on to ground for yard work. Prior Treatments and Tests Hip [id number], lumbar MRI-At L4-L5, there is a left foraminal disc extrusion, with superior migration of disc material. There is compression seen upon the exiting left L4 nerve root. At L5-S1, there is grade 1 anterolisthesis, with associated pars defects. On the right, there is moderate to severe neural foraminal narrowing, with associated compression upon the exiting right L5 nerve root. Future Testing and Treatments Planned Pt will see Dr. Matt Prior Functional Status Baseline Function- ADL's Independent Baseline Function- Mobility Independent Current Functional Impairments (Reported) Functional Limitations- ADL's Painful, difficulty with donning shoes Functional Limitations- Mobility/Gait Painful Functional Limitations- Recreation/ Unable to garden Hobbies PT-OP-C Subjective Start: 12/09/22 16:56 Freq: Status: Active Protocol: Document 01/06/23 09:03 AM (Rec: 01/06/23 09:48 AM [id number]) OP-PT Subjective Patient Comments Patient Comments Pt reports that she skipped swimming today and feels stiff . Pt saw her PCP who is adjusting her meds to see if she can get more pain relief. PT-OP-D Balance Start: 12/09/22 16:56 Freq: Status: Active Protocol: Document 12/12/22 15:16 AM (Rec: 12/12/22 16:41 AM [id number]) Balance Tests Single Limb Standing Single Limb- Right unable Single Limb- Left 2 PT-OP-E Functional Tests Start: 12/09/22 16:56 Freq: Status: Active Protocol: Document 01/03/23 10:34 AM (Rec: 01/03/23 10:46 AM [id number]) Functional Tests Five Times Sit to Stand Test Score 23 seconds Comments 20 inch hi-low table PT-OP-G Mobility & Gait Start: 12/09/22 16:56 Freq: Status: Active Protocol: Document 12/12/22 15:16 AM (Rec: 12/12/22 16:41 AM [id number]) OP Gait Assessment Gait Gait Assistance Required: Independent Assistive Devices Assistive Device None Gait Deviations General Gait Pattern Antalgic,Decreased Stride Length,Lateral Trunk Lean Factors Limiting Gait Function Factors Limiting Gait Function Decreased Activity Tolerance, Decreased Strength,Limited Range of Motion,Pain,Poor Balance Comments Gait Comments Pt with R lateral rotation at hip during gait PT-OP-J Posture/Palpation/Skin Start: 12/09/22 16:56 Freq: Status: Active Protocol: Document 12/12/22 15:16 AM (Rec: 12/12/22 16:41 AM [id number]) Posture Evaluation Position Standing L-Spine Posture Increased Lordosis Pelvis Posture (R) Rotated Anterior Ankle/Foot Posture (R) Pronated Foot Arch (R) Low Arch PT-OP-K Range of Motion Start: 12/09/22 16:56 Freq: Status: Active Protocol: Document 01/06/23 09:03 AM (Rec: 01/06/23 09:48 AM [id number]) Hip Goniometric Range of Motion Hip Right Active Flexion w/Knee Flexed 95 Abduction 20 PT-OP-M Strength Start: 12/09/22 16:56 Freq: Status: Active Protocol: Document 12/12/22 15:16 AM (Rec: 12/12/22 16:41 AM [id number]) Hip Strength Hip Manual Muscle Testing Left Flexion (L2) 4 Good Abduction 4 Good Adduction 5 Normal External Rotation 4 Good Internal Rotation 4 Good Right Flexion (L2) 3 Fair Abduction 3+ Fair+ Adduction 4- Good- External Rotation 3 Fair Internal Rotation 3 Fair Knee Strength Knee Manual Muscle Testing Left Flexion (S2) 4 Good Extension (L3) 4 Good Right Flexion (S2) 4- Good- Extension (L3) 4 Good PT-OP-Q Treatments Start: 12/09/22 16:56 Freq: Status: Active Protocol: Document 01/06/23 09:03 AM (Rec: 01/06/23 09:48 AM [id number]) Therapeutic Exercises Supine Exercises Hip flexion AAROM Side right Equipment Used Pt held mob strap and assisted R LE into flexion from hooklying pos Reps/Minutes x10 Hip flexor iso Equipment Used swissball under legs, pt pushes down into R thigh with hand Reps/Minutes 10x3 sec HS curls Supine Exercise Name feet on swissball, cues for HS , hips still down on table Equipment Used orange swissball Reps/Minutes x10 Bridge Equipment Used swissball Reps/Minutes 2x10 Comments cues for ab, glute activation; no south korean ball d/t discomfort in hip BKFO Side bilateral Resistance Porter TB Reps/Minutes 2x10 Standing Exercises Hip hinge Equipment Used dowel Reps/Minutes x10 Other Exercises Cat/cow Reps/Minutes x10 Comments ROM increased with repetition Quadruped rock back Reps/Minutes 2x10 Comments cues for trunk stab; ROM increased with repetitions Manual Therapy Treatment Soft Tissue Mobilization R hip Body Location R quads, HS, glutes in L sidelying Mobilization Type Myofascial Release,Rolling Intensity/Depth Moderate Joint Mobilizations S-I glide Joint S-I mobs Grade III PT-OP-T Assessment and Plan Start: 12/09/22 16:56 Freq: Status: Active Protocol: Document 01/06/23 09:03 AM (Rec: 01/06/23 09:48 AM [id number]) Physical Therapy Assessment Goals Stairs Impairment Pt with pain and difficulty with ascending/descending stairs. Short Term Goal (STG) Pt able to ascend/descend 4 in step without increase in hip pain. 11/6/23: Pt with reported mild increase in hip pain with ascending/descending 4 in step with hand rails. STG Duration 01/02/23 Certified Pharmacy Tech Goal (LTG) Pt able to ascend/descend 6 in step without increase in hip pain. LTG Duration 01/23/23 Hip ROM Impairment Pt with limited R hip mobility secondary to pain. Short Term Goal (STG) Pt with 5 deg improvement in hip ROM in each direction. 01/06/23: Goal met STG Duration 01/02/23 Retirement Goal (LTG) Pt with 8 deg improvement in hip ROM in each direction. LTG Duration 01/23/23 5xSTS test Impairment strength Impairment Pt with score of 33 sec on 5x STS test. Short Term Goal (STG) Pt with score of 28 sec on 5xSTS test. 01/03/23: Goal met STG Duration 01/02/23 Retirement Goal (LTG) Pt with score of 23 sec on 5xSTS test. LTG Duration 01/23/23 Oswestry Impairment Pt with score of 48% on Oswestry. Certified Pharmacy Tech Goal (LTG) Pt with score of <25% on Oswestry. LTG Duration 01/23/23 Donning shoes Impairment Pt unable to don shoes without pain. Retirement Goal (LTG) Pt able to don shoes without increase in pain. LTG Duration 01/23/23 Assessment Summary Assessment Pt tolerated PRE well today. Pt continues to have difficulty with AROM hip flexion on R. Pt requires cueing for trunk stab with exercises. Pt able to tolerate hip hinge today without increase in symptoms. Pt demonstrates gradual improvement with hip ROM. Pt would benefit from continued PT to progress hip mobility and lumbopelvic strength as tolerated. Physical Therapy Plan Frequency and Duration Frequency of Treatment 2x/Week Duration of treatment (weeks) 6 Plan of Care Start Date 12/12/22 Plan of Care End Date 01/23/23 Therapeutic Interventions Therapeutic Interventions Balance Training,Gait Training ,Home Exercise Program,Joint Mobilizations,Manual Therapy, Neuromuscular Re-education, Patient/Caregiver Education, Self-Care/Home Management,Soft Tissue Mobilization,Taping, Therapeutic Activities, Therapeutic Exercises Modalities Cold Pack/Ice Massage,Electric Stimulation,Hot Packs, Ultrasound Next Visit Focus/Plan Next Note Type Treatment Note Next Visit Plan Re-attempt hip hinge in standing, progress trunk and core strengthening. Continue with hip strengthening
--- NOTE | 2023-01-10 12:19 | PT.OTN ---
Current Diagnoses Sciatica, left side (01/10/23) Physical Therapy Treatment Note PT-OP-A Visit Information Start: 12/09/22 16:56 Freq: Status: Active Protocol: Document 01/10/23 12:19 AM (Rec: 01/10/23 13:29 AM [id number]) Out-Patient Physical Therapy Visit Information Visit Information Visit Type Treatment Note Visit Start Time 12:19 Visit Stop Time 13:02 Total Visit Minutes 43 Visit Number 9 PT-OP-B Current Condition Start: 12/09/22 16:56 Freq: Status: Active Protocol: Document 12/12/22 15:16 AM (Rec: 12/12/22 16:41 AM [id number]) Current Condition History of Current Condition Onset Date chronic, worsened in June 2022 Current Complaints R hip pain and low back pain. 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 Pt went to the doula and got new shoes and a new orthotic. Pt reports that she has had R hip pain. Pt has had increase in R hip pain since June 2022 that feels mechanical. Pt was seen for L sciatic symptom that resolved with steroid/tramadol. Pt reports that she does swim 3x/ week. Pt reports pain at hip/ back with walking less than 1/ 4 mile. Difficuly with walking to mailbox. Difficulty with donning R shoe. Pt with difficulty with climbing stairs. Pt with difficulty getting on to ground for yard work. Prior Treatments and Tests Hip [id number], lumbar MRI-At L4-L5, there is a left foraminal disc extrusion, with superior migration of disc material. There is compression seen upon the exiting left L4 nerve root. At L5-S1, there is grade 1 anterolisthesis, with associated pars defects. On the right, there is moderate to severe neural foraminal narrowing, with associated compression upon the exiting right L5 nerve root. Future Testing and Treatments Planned Pt will see Dr. Matt Prior Functional Status Baseline Function- ADL's Independent Baseline Function- Mobility Independent Current Functional Impairments (Reported) Functional Limitations- ADL's Painful, difficulty with donning shoes Functional Limitations- Mobility/Gait Painful Functional Limitations- Recreation/ Unable to garden Hobbies PT-OP-C Subjective Start: 12/09/22 16:56 Freq: Status: Active Protocol: Document 01/10/23 12:19 AM (Rec: 01/10/23 13:29 AM [id number]) OP-PT Subjective Patient Comments Patient Comments Pt reports that she has been approved for a back surgery, but she is not exactly sure what they will be doing. She will be meeting with the surgeon on to discuss the plan. Pt reports that she will be managing her low back issue, before addressing a R AMADOR. Pt reports that she started taking tramadol on monday and feels that might be helping with pain. PT-OP-D Balance Start: 12/09/22 16:56 Freq: Status: Active Protocol: Document 12/12/22 15:16 AM (Rec: 12/12/22 16:41 AM [id number]) Balance Tests Single Limb Standing Single Limb- Right unable Single Limb- Left 2 PT-OP-E Functional Tests Start: 12/09/22 16:56 Freq: Status: Active Protocol: Document 01/03/23 10:34 AM (Rec: 01/03/23 10:46 AM [id number]) Functional Tests Five Times Sit to Stand Test Score 23 seconds Comments 20 inch hi-low table PT-OP-G Mobility & Gait Start: 12/09/22 16:56 Freq: Status: Active Protocol: Document 12/12/22 15:16 AM (Rec: 12/12/22 16:41 AM [id number]) OP Gait Assessment Gait Gait Assistance Required: Independent Assistive Devices Assistive Device None Gait Deviations General Gait Pattern Antalgic,Decreased Stride Length,Lateral Trunk Lean Factors Limiting Gait Function Factors Limiting Gait Function Decreased Activity Tolerance, Decreased Strength,Limited Range of Motion,Pain,Poor Balance Comments Gait Comments Pt with R lateral rotation at hip during gait PT-OP-J Posture/Palpation/Skin Start: 12/09/22 16:56 Freq: Status: Active Protocol: Document 12/12/22 15:16 AM (Rec: 12/12/22 16:41 AM [id number]) Posture Evaluation Position Standing L-Spine Posture Increased Lordosis Pelvis Posture (R) Rotated Anterior Ankle/Foot Posture (R) Pronated Foot Arch (R) Low Arch PT-OP-K Range of Motion Start: 12/09/22 16:56 Freq: Status: Active Protocol: Document 01/06/23 09:03 AM (Rec: 01/06/23 09:48 AM [id number]) Hip Goniometric Range of Motion Hip Right Active Flexion w/Knee Flexed 95 Abduction 20 PT-OP-M Strength Start: 12/09/22 16:56 Freq: Status: Active Protocol: Document 12/12/22 15:16 AM (Rec: 12/12/22 16:41 AM [id number]) Hip Strength Hip Manual Muscle Testing Left Flexion (L2) 4 Good Abduction 4 Good Adduction 5 Normal External Rotation 4 Good Internal Rotation 4 Good Right Flexion (L2) 3 Fair Abduction 3+ Fair+ Adduction 4- Good- External Rotation 3 Fair Internal Rotation 3 Fair Knee Strength Knee Manual Muscle Testing Left Flexion (S2) 4 Good Extension (L3) 4 Good Right Flexion (S2) 4- Good- Extension (L3) 4 Good PT-OP-Q Treatments Start: 12/09/22 16:56 Freq: Status: Active Protocol: Document 01/10/23 12:19 AM (Rec: 01/10/23 13:29 AM [id number]) Therapeutic Exercises Supine Exercises Hip flexor iso Equipment Used swissball under legs, pt pushes down into R thigh with hand Reps/Minutes 10x3 sec Bridge Equipment Used swissball Reps/Minutes 2x10 Comments cues for ab, glute activation, cues to avoid painful range SAQ Side bilateral Resistance 5# Equipment Used bar bolster under knees Reps/Minutes 2x10 PPT Supine Exercise Name with abdominal isometric, pushing clasped hands into swissball. BKFO Side bilateral Resistance Piute TB Reps/Minutes 2x10 Standing Exercises Hip hinge Equipment Used dowel Reps/Minutes x10 Other Exercises Cat/cow Reps/Minutes x10 Comments ROM increased with repetition Quadruped rock back Reps/Minutes 2x10 Comments cues for trunk stab; ROM increased with repetitions Manual Therapy Treatment Soft Tissue Mobilization R hip Body Location R quads, HS, glutes in L sidelying Mobilization Type Myofascial Release,Rolling Intensity/Depth Moderate PT-OP-T Assessment and Plan Start: 12/09/22 16:56 Freq: Status: Active Protocol: Document 01/10/23 12:19 AM (Rec: 01/10/23 13:29 AM [id number]) Physical Therapy Assessment Goals Stairs Impairment Pt with pain and difficulty with ascending/descending stairs. Short Term Goal (STG) Pt able to ascend/descend 4 in step without increase in hip pain. 01/02/23: Pt with reported mild increase in hip pain with ascending/descending 4 in step with hand rails. STG Duration 01/02/23 Fpc Goal (LTG) Pt able to ascend/descend 6 in step without increase in hip pain. LTG Duration 01/23/23 Hip ROM Impairment Pt with limited R hip mobility secondary to pain. Short Term Goal (STG) Pt with 5 deg improvement in hip ROM in each direction. 01/06/23: Goal met STG Duration 01/02/23 Field Sales Engineer Goal (LTG) Pt with 8 deg improvement in hip ROM in each direction. LTG Duration 01/23/23 5xSTS test Impairment strength Impairment Pt with score of 33 sec on 5x STS test. Short Term Goal (STG) Pt with score of 28 sec on 5xSTS test. 01/03/23: Goal met STG Duration 01/02/23 Field Sales Engineer Goal (LTG) Pt with score of 23 sec on 5xSTS test. LTG Duration 01/23/23 Oswestry Impairment Pt with score of 48% on Oswestry. Fpc Goal (LTG) Pt with score of <25% on Oswestry. LTG Duration 01/23/23 Donning shoes Impairment Pt unable to don shoes without pain. Field Sales Engineer Goal (LTG) Pt able to don shoes without increase in pain. LTG Duration 01/23/23 Assessment Summary Assessment Pt with good tolerance to hip hinging today, though requires cueing for form to decrease lumbar flexion. Pt demonstrates improving hip flexion with quadruped rock- back. Pt without production of LBP with tx today. Pt requires cueing for lumbopelvic stab with exercises. Pt would benefit from continued PT to progress core and hip strength/mobility as tolerated. Physical Therapy Plan Frequency and Duration Frequency of Treatment 2x/Week Duration of treatment (weeks) 6 Plan of Care Start Date 12/12/22 Plan of Care End Date 01/23/23 Therapeutic Interventions Therapeutic Interventions Balance Training,Gait Training ,Home Exercise Program,Joint Mobilizations,Manual Therapy, Neuromuscular Re-education, Patient/Caregiver Education, Self-Care/Home Management,Soft Tissue Mobilization,Taping, Therapeutic Activities, Therapeutic Exercises Modalities Cold Pack/Ice Massage,Electric Stimulation,Hot Packs, Ultrasound Next Visit Focus/Plan Next Note Type Treatment Note Next Visit Plan progress trunk and core strengthening. Continue with hip strengthening
--- NOTE | 2023-01-13 09:48 | PT.OTN ---
Current Diagnoses Sciatica, left side (01/13/23) Physical Therapy Treatment Note PT-OP-A Visit Information Start: 12/09/22 16:56 Freq: Status: Active Protocol: Document 01/13/23 09:48 AM (Rec: 01/13/23 11:07 AM [id number]) Out-Patient Physical Therapy Visit Information Visit Information Visit Type Treatment Note Visit Start Time 09:48 Visit Stop Time 10:33 Total Visit Minutes 45 Visit Number 10 Number of ELECTROTYPE FINISHER Visits 0 PT-OP-B Current Condition Start: 12/09/22 16:56 Freq: Status: Active Protocol: Document 12/12/22 15:16 AM (Rec: 12/12/22 16:41 AM [id number]) Current Condition History of Current Condition Onset Date chronic, worsened in June 2022 Current Complaints R hip pain and low back pain. 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 Pt went to the licensed clinical psychologist and got new shoes and a new orthotic. Pt reports that she has had R hip pain. Pt has had increase in R hip pain since June 2022 that feels mechanical. Pt was seen for L sciatic symptom that resolved with steroid/tramadol. Pt reports that she does swim 3x/ week. Pt reports pain at hip/ back with walking less than 1/ 4 mile. Difficuly with walking to mailbox. Difficulty with donning R shoe. Pt with difficulty with climbing stairs. Pt with difficulty getting on to ground for yard work. Prior Treatments and Tests Hip o-xqe-ejdbajafk, lumbar MRI-At L4-L5, there is a left foraminal disc extrusion, with superior migration of disc material. There is compression seen upon the exiting left L4 nerve root. At L5-S1, there is grade 1 anterolisthesis, with associated pars defects. On the right, there is moderate to severe neural foraminal narrowing, with associated compression upon the exiting right L5 nerve root. Future Testing and Treatments Planned Pt will see Dr. Matt Prior Functional Status Baseline Function- ADL's Independent Baseline Function- Mobility Independent Current Functional Impairments (Reported) Functional Limitations- ADL's Painful, difficulty with donning shoes Functional Limitations- Mobility/Gait Painful Functional Limitations- Recreation/ Unable to garden Hobbies PT-OP-C Subjective Start: 12/09/22 16:56 Freq: Status: Active Protocol: Document 01/13/23 09:48 AM (Rec: 01/13/23 11:07 AM [id number]) OP-PT Subjective Patient Comments Patient Comments Pt presents with brochure for upcoming transforaminal lumbar interbody fusion. This surgery is scheduled for 02/14 . Pt reports that she is having increased difficulty with walking today. Pt reports that she had an increase in pain after getting out of the pool on Monday, though did not do anything different in the pool that she is aware of. PT-OP-D Balance Start: 12/09/22 16:56 Freq: Status: Active Protocol: Document 12/12/22 15:16 AM (Rec: 12/12/22 16:41 AM [id number]) Balance Tests Single Limb Standing Single Limb- Right unable Single Limb- Left 2 PT-OP-E Functional Tests Start: 12/09/22 16:56 Freq: Status: Active Protocol: Document 01/03/23 10:34 AM (Rec: 01/03/23 10:46 AM [id number]) Functional Tests Five Times Sit to Stand Test Score 23 seconds Comments 20 inch hi-low table PT-OP-G Mobility & Gait Start: 12/09/22 16:56 Freq: Status: Active Protocol: Document 12/12/22 15:16 AM (Rec: 12/12/22 16:41 AM [id number]) OP Gait Assessment Gait Gait Assistance Required: Independent Assistive Devices Assistive Device None Gait Deviations General Gait Pattern Antalgic,Decreased Stride Length,Lateral Trunk Lean Factors Limiting Gait Function Factors Limiting Gait Function Decreased Activity Tolerance, Decreased Strength,Limited Range of Motion,Pain,Poor Balance Comments Gait Comments Pt with R lateral rotation at hip during gait PT-OP-J Posture/Palpation/Skin Start: 12/09/22 16:56 Freq: Status: Active Protocol: Document 12/12/22 15:16 AM (Rec: 12/12/22 16:41 AM [id number]) Posture Evaluation Position Standing L-Spine Posture Increased Lordosis Pelvis Posture (R) Rotated Anterior Ankle/Foot Posture (R) Pronated Foot Arch (R) Low Arch PT-OP-K Range of Motion Start: 12/09/22 16:56 Freq: Status: Active Protocol: Document 01/06/23 09:03 AM (Rec: 01/06/23 09:48 AM [id number]) Hip Goniometric Range of Motion Hip Right Active Flexion w/Knee Flexed 95 Abduction 20 PT-OP-M Strength Start: 12/09/22 16:56 Freq: Status: Active Protocol: Document 12/12/22 15:16 AM (Rec: 12/12/22 16:41 AM [id number]) Hip Strength Hip Manual Muscle Testing Left Flexion (L2) 4 Good Abduction 4 Good Adduction 5 Normal External Rotation 4 Good Internal Rotation 4 Good Right Flexion (L2) 3 Fair Abduction 3+ Fair+ Adduction 4- Good- External Rotation 3 Fair Internal Rotation 3 Fair Knee Strength Knee Manual Muscle Testing Left Flexion (S2) 4 Good Extension (L3) 4 Good Right Flexion (S2) 4- Good- Extension (L3) 4 Good PT-OP-Q Treatments Start: 12/09/22 16:56 Freq: Status: Active Protocol: Document 01/13/23 09:48 AM (Rec: 01/13/23 11:07 AM [id number]) Therapeutic Exercises Supine Exercises Bridge Equipment Used swissball Reps/Minutes 2x10 Comments cues for ab, glute activation, cues to avoid painful range PPT Supine Exercise Name with abdominal isometric, pushing clasped hands into swissball. BKFO Side bilateral Resistance [place] TB Reps/Minutes 2x10 Other Exercises Cat/cow Reps/Minutes x10 Comments ROM increased with repetition Quadruped rock back Reps/Minutes x10 Comments cues for trunk stab; ROM increased with repetitions Manual Therapy Treatment Joint Mobilizations hip Lat glide Joint R hip Direction lat Grade III Body Position Hooklying Manual Techniques Traction Type Lumbar traction with feet on orange swissball Body Position Hooklying PT-OP-T Assessment and Plan Start: 12/09/22 16:56 Freq: Status: Active Protocol: Document 01/13/23 09:48 AM (Rec: 01/13/23 11:07 AM [id number]) Physical Therapy Assessment Goals Stairs Impairment Pt with pain and difficulty with ascending/descending stairs. Short Term Goal (STG) Pt able to ascend/descend 4 in step without increase in hip pain. 01/02/23: Pt with reported mild increase in hip pain with ascending/descending 4 in step with hand rails. STG Duration 01/02/23 Shelter Goal (LTG) Pt able to ascend/descend 6 in step without increase in hip pain. LTG Duration 01/23/23 Hip ROM Impairment Pt with limited R hip mobility secondary to pain. Short Term Goal (STG) Pt with 5 deg improvement in hip ROM in each direction. 01/06/23: Goal met STG Duration 01/02/23 Transmitter Engineer Goal (LTG) Pt with 8 deg improvement in hip ROM in each direction. LTG Duration 01/23/23 5xSTS test Impairment strength Impairment Pt with score of 33 sec on 5x STS test. Short Term Goal (STG) Pt with score of 28 sec on 5xSTS test. 01/03/23: Goal met STG Duration 01/02/23 Transmitter Engineer Goal (LTG) Pt with score of 23 sec on 5xSTS test. LTG Duration 01/23/23 Oswestry Impairment Pt with score of 48% on Oswestry. Shelter Goal (LTG) Pt with score of <25% on Oswestry. LTG Duration 01/23/23 Donning shoes Impairment Pt unable to don shoes without pain. Shelter Goal (LTG) Pt able to don shoes without increase in pain. LTG Duration 01/23/23 Assessment Summary Assessment Pt with reported reduction in symptoms following tx session today. Pain monitored throughout session, secondary to exacerbation of symptoms upon arrival today. Pt would benefit from continued PT to progress lumbar and hip mobility/strength to improve tolerance to gait and functional activities. Physical Therapy Plan Frequency and Duration Frequency of Treatment 2x/Week Duration of treatment (weeks) 6 Plan of Care Start Date 12/12/22 Plan of Care End Date 01/23/23 Therapeutic Interventions Therapeutic Interventions Balance Training,Gait Training ,Home Exercise Program,Joint Mobilizations,Manual Therapy, Neuromuscular Re-education, Patient/Caregiver Education, Self-Care/Home Management,Soft Tissue Mobilization,Taping, Therapeutic Activities, Therapeutic Exercises Modalities Cold Pack/Ice Massage,Electric Stimulation,Hot Packs, Ultrasound Next Visit Focus/Plan Next Note Type Progress Note Next Visit Plan update POC, assess gait with cane progress trunk and core strengthening. Continue with hip strengthening
--- NOTE | 2023-01-17 13:32 | PT.OTN ---
Current Diagnoses Sciatica, left side (01/17/23) Physical Therapy Treatment Note PT-OP-A Visit Information Start: 12/09/22 16:56 Freq: Status: Active Protocol: Document 01/17/23 13:32 AM (Rec: 01/17/23 14:47 AM [id number]) Out-Patient Physical Therapy Visit Information Visit Information Visit Type Progress Note Visit Start Time 13:32 Visit Stop Time 14:17 Total Visit Minutes 45 Visit Number 11 PT-OP-B Current Condition Start: 12/09/22 16:56 Freq: Status: Active Protocol: Document 12/12/22 15:16 AM (Rec: 12/12/22 16:41 AM [id number]) Current Condition History of Current Condition Onset Date chronic, worsened in June 2022 Current Complaints R hip pain and low back pain. 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 Pt reports that she has had R hip pain. Pt has had increase in R hip pain since June 2022 that feels mechanical. Pt was seen for L sciatic symptom that resolved with steroid/tramadol. Pt reports that she does swim 3x/ week. Pt reports pain at hip/ back with walking less than 1/ 4 mile. Difficuly with walking to mailbox. Difficulty with donning R shoe. Pt with difficulty with climbing stairs. Pt with difficulty getting on to ground for yard work. Prior Treatments and Tests Hip [id number]-[id number], lumbar MRI-At L4-L5, there is a left foraminal disc extrusion, with superior migration of disc material. There is compression seen upon the exiting left L4 nerve root. At L5-S1, there is grade 1 anterolisthesis, with associated pars defects. On the right, there is moderate to severe neural foraminal narrowing, with associated compression upon the exiting right L5 nerve root. Future Testing and Treatments Planned Pt will see Dr. Matt Prior Functional Status Baseline Function- ADL's Independent Baseline Function- Mobility Independent Current Functional Impairments (Reported) Functional Limitations- ADL's Painful, difficulty with donning shoes Functional Limitations- Mobility/Gait Painful Functional Limitations- Recreation/ Unable to garden Hobbies PT-OP-C Subjective Start: 12/09/22 16:56 Freq: Status: Active Protocol: Document 01/17/23 13:32 AM (Rec: 01/17/23 14:47 AM [id number]) OP-PT Subjective Patient Comments Patient Comments Pt reports that the decision to do the TLIF before [facility]ADOR is because of her surgeon's concern regarding ongoing nerve damage. Lumbar surgery is scheduled for 02/14. Pt reports that her R hip continues to be sore. Patient Questionnaires Oswestry Low Back Index Oswestry Score 44 Oswestry Impairment 40 to 59% Impaired (Score 40- 59) PT-OP-D Balance Start: 12/09/22 16:56 Freq: Status: Active Protocol: Document 12/12/22 15:16 AM (Rec: 12/12/22 16:41 AM [id number]) Balance Tests Single Limb Standing Single Limb- Right unable Single Limb- Left 2 PT-OP-E Functional Tests Start: 12/09/22 16:56 Freq: Status: Active Protocol: Document 01/17/23 13:32 AM (Rec: 01/17/23 14:47 AM [id number]) Functional Tests Five Times Sit to Stand Test Score 18 sec Comments height of hi-low table at 21 inches PT-OP-G Mobility & Gait Start: 12/09/22 16:56 Freq: Status: Active Protocol: Document 12/12/22 15:16 AM (Rec: 12/12/22 16:41 AM [id number]) OP Gait Assessment Gait Gait Assistance Required: Independent Assistive Devices Assistive Device None Gait Deviations General Gait Pattern Antalgic,Decreased Stride Length,Lateral Trunk Lean Factors Limiting Gait Function Factors Limiting Gait Function Decreased Activity Tolerance, Decreased Strength,Limited Range of Motion,Pain,Poor Balance Comments Gait Comments Pt with R lateral rotation at hip during gait PT-OP-J Posture/Palpation/Skin Start: 12/09/22 16:56 Freq: Status: Active Protocol: Document 12/12/22 15:16 AM (Rec: 12/12/22 16:41 AM [id number]) Posture Evaluation Position Standing L-Spine Posture Increased Lordosis Pelvis Posture (R) Rotated Anterior Ankle/Foot Posture (R) Pronated Foot Arch (R) Low Arch PT-OP-K Range of Motion Start: 12/09/22 16:56 Freq: Status: Active Protocol: Document 01/17/23 13:32 AM (Rec: 01/17/23 14:47 AM [id number]) Hip Goniometric Range of Motion Hip Right Active Flexion w/Knee Flexed 98 Internal Rotation 15 External Rotation 30 Comments flexion AAROM PT-OP-M Strength Start: 12/09/22 16:56 Freq: Status: Active Protocol: Document 12/12/22 15:16 AM (Rec: 12/12/22 16:41 AM [id number]) Hip Strength Hip Manual Muscle Testing Left Flexion (L2) 4 Good Abduction 4 Good Adduction 5 Normal External Rotation 4 Good Internal Rotation 4 Good Right Flexion (L2) 3 Fair Abduction 3+ Fair+ Adduction 4- Good- External Rotation 3 Fair Internal Rotation 3 Fair Knee Strength Knee Manual Muscle Testing Left Flexion (S2) 4 Good Extension (L3) 4 Good Right Flexion (S2) 4- Good- Extension (L3) 4 Good PT-OP-Q Treatments Start: 12/09/22 16:56 Freq: Status: Active Protocol: Document 01/17/23 13:32 AM (Rec: 01/17/23 14:47 AM [id number]) Therapeutic Exercises Supine Exercises Hip flexor iso Equipment Used swissball under legs, pt pushes down into R thigh with hand Reps/Minutes 10x3 sec Bridge Equipment Used swissball Reps/Minutes 2x10 Comments cues for ab, glute activation, cues to avoid painful range Gait Training Gait Activity SPC Comments Pt with improved control of R LE with SPC. Pt with reported decrease in R hip symptoms during gait with SPC. Trekking poles Comments Pt initially challenged with coordination with trekking poles, which improved with practice. Pt required cue for neutral rotation of R hip during gait to decrease LR. Manual Therapy Treatment Soft Tissue Mobilization R hip Body Location R quads, HS, glutes in L sidelying Mobilization Type Myofascial Release,Rolling Intensity/Depth Moderate Comments also quads rolling quads in supine with rolling pin Joint Mobilizations hip Lat glide Joint R hip Direction lat Grade III Body Position Hooklying S-I glide Joint R hip Grade III Body Position Supine Comments R LE on PT shoulder Manual Techniques Traction Type Lumbar traction with feet on orange swissball Body Position Hooklying PT-OP-T Assessment and Plan Start: 12/09/22 16:56 Freq: Status: Active Protocol: Document 01/17/23 13:32 AM (Rec: 01/17/23 14:47 AM [id number]) Physical Therapy Assessment Goals Stairs Impairment Pt with pain and difficulty with ascending/descending stairs. Short Term Goal (STG) Pt able to ascend/descend 4 in step without increase in hip pain. 01/02/23: Pt with reported mild increase in hip pain with ascending/descending 4 in step with hand rails. STG Duration 01/02/23 Primer Charger Goal (LTG) Pt able to ascend/descend 6 in step without increase in hip pain. LTG Duration 02/13/23 Hip ROM Impairment Pt with limited R hip mobility secondary to pain. Short Term Goal (STG) Pt with 5 deg improvement in hip ROM in each direction. 01/06/23: Goal met STG Duration 01/02/23 Longterm Goal (LTG) Pt with 8 deg improvement in hip ROM in each direction. 01/17/23: Progressing towards goal. Pt demonstrates improved hip mobility since IE. LTG Duration 02/13/23 5xSTS test Impairment strength Impairment Pt with score of 33 sec on 5x STS test. Short Term Goal (STG) Pt with score of 28 sec on 5xSTS test. 01/03/23: Goal met STG Duration 01/02/23 Primer Charger Goal (LTG) Pt with score of 23 sec on 5xSTS test. 01/17/23: Pt with time of 21 sec on 5xSTS test LTG Duration 02/13/23 Oswestry Impairment Pt with score of 48% on Oswestry. Primer Charger Goal (LTG) Pt with score of <25% on Oswestry. 01/17/23: Pt with score of 44% on Oswestry. LTG Duration 02/13/23 Donning shoes Impairment Pt unable to don shoes without pain. Primer Charger Goal (LTG) Pt able to don shoes without increase in pain. 01/17/23: Pt continues to report difficulty with donning R shoe. LTG Duration 02/13/23 Assessment Summary Assessment Pt with reported decrease in sxs post-tx and demonstrated improved gait pattern. Pt gait trained with SPC today. Pt required cueing for neutral foot alignment to decrease LR of R LE during gait. Pt able to tolerate neutral hip alignment with use of AD. Pt with improved gait pattern with SPC vs trekking poles. Pt demonstrated difficulty with supine position on R LE, reporting stiffness and discomfort at hip flexors/ quads. This improved following rolling of R quads/adductors. Pt would benefit from continued PT to progress trunk /hip strength and mobility to improve tolerance to gait and functional activities. Physical Therapy Plan Frequency and Duration Frequency of Treatment 2x/Week Duration of treatment (weeks) 9 Plan of Care Start Date 12/12/22 Plan of Care End Date 02/13/23 Next Visit Focus/Plan Next Note Type Treatment Note Next Visit Plan assess gait with SPC as pt is going to purchase one, continue to progress hip mobility and trunk strength as tolerated
--- NOTE | 2023-01-24 18:11 | PT.OTN ---
Addendum entered and electronically signed by Celestina Millard, PT 01/25/23 09:14: PT direct supervision and direction to PT student. Original Note: Current Diagnoses Sciatica, left side (01/24/23) Physical Therapy Treatment Note PT-OP-A Visit Information Start: 12/09/22 16:56 Freq: Status: Active Protocol: Document 01/24/23 09:47 BS (Rec: 01/24/23 11:03 BS [id number]) Out-Patient Physical Therapy Visit Information Visit Information Visit Type Treatment Note Visit Start Time 09:48 Visit Stop Time 10:33 Total Visit Minutes 45 Visit Number 12 Number of CORRECTIONS CORPORAL Visits 0 PT-OP-B Current Condition Start: 12/09/22 16:56 Freq: Status: Active Protocol: Document 12/12/22 15:16 AM (Rec: 12/12/22 16:41 AM [id number]) Current Condition History of Current Condition Onset Date chronic, worsened in June 2022 Current Complaints R hip pain and low back pain. 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 Pt reports that she has had R hip pain. Pt has had increase in R hip pain since June 2022 that feels mechanical. Pt was seen for L sciatic symptom that resolved with steroid/tramadol. Pt reports that she does swim 3x/ week. Pt reports pain at hip/ back with walking less than 1/ 4 mile. Difficuly with walking to mailbox. Difficulty with donning R shoe. Pt with difficulty with climbing stairs. Pt with difficulty getting on to ground for yard work. Prior Treatments and Tests Hip [id number]-blf-[id number], lumbar MRI-At L4-L5, there is a left foraminal disc extrusion, with superior migration of disc material. There is compression seen upon the exiting left L4 nerve root. At L5-S1, there is grade 1 anterolisthesis, with associated pars defects. On the right, there is moderate to severe neural foraminal narrowing, with associated compression upon the exiting right L5 nerve root. Future Testing and Treatments Planned Pt will see Dr. Matt Prior Functional Status Baseline Function- ADL's Independent Baseline Function- Mobility Independent Current Functional Impairments (Reported) Functional Limitations- ADL's Painful, difficulty with donning shoes Functional Limitations- Mobility/Gait Painful Functional Limitations- Recreation/ Unable to garden Hobbies PT-OP-C Subjective Start: 12/09/22 16:56 Freq: Status: Active Protocol: Document 01/24/23 09:47 BS (Rec: 01/24/23 11:03 BS [id number]) OP-PT Subjective Patient Comments Patient Comments Has had a lot of pain in R hip & back since last visit and never can quite tell which is causing which. Pain meds dont seem to do a whole lot. PT-OP-D Balance Start: 12/09/22 16:56 Freq: Status: Active Protocol: Document 12/12/22 15:16 AM (Rec: 12/12/22 16:41 AM [id number]) Balance Tests Single Limb Standing Single Limb- Right unable Single Limb- Left 2 PT-OP-E Functional Tests Start: 12/09/22 16:56 Freq: Status: Active Protocol: Document 01/17/23 13:32 AM (Rec: 01/17/23 14:47 AM [id number]) Functional Tests Five Times Sit to Stand Test Score 18 sec Comments height of hi-low table at 21 inches PT-OP-G Mobility & Gait Start: 12/09/22 16:56 Freq: Status: Active Protocol: Document 12/12/22 15:16 AM (Rec: 12/12/22 16:41 AM [id number]) OP Gait Assessment Gait Gait Assistance Required: Independent Assistive Devices Assistive Device None Gait Deviations General Gait Pattern Antalgic,Decreased Stride Length,Lateral Trunk Lean Factors Limiting Gait Function Factors Limiting Gait Function Decreased Activity Tolerance, Decreased Strength,Limited Range of Motion,Pain,Poor Balance Comments Gait Comments Pt with R lateral rotation at hip during gait PT-OP-J Posture/Palpation/Skin Start: 12/09/22 16:56 Freq: Status: Active Protocol: Document 12/12/22 15:16 AM (Rec: 12/12/22 16:41 AM [id number]) Posture Evaluation Position Standing L-Spine Posture Increased Lordosis Pelvis Posture (R) Rotated Anterior Ankle/Foot Posture (R) Pronated Foot Arch (R) Low Arch PT-OP-K Range of Motion Start: 12/09/22 16:56 Freq: Status: Active Protocol: Document 01/17/23 13:32 AM (Rec: 01/17/23 14:47 AM [id number]) Hip Goniometric Range of Motion Hip Right Active Flexion w/Knee Flexed 98 Internal Rotation 15 External Rotation 30 Comments flexion AAROM PT-OP-M Strength Start: 12/09/22 16:56 Freq: Status: Active Protocol: Document 12/12/22 15:16 AM (Rec: 12/12/22 16:41 AM [id number]) Hip Strength Hip Manual Muscle Testing Left Flexion (L2) 4 Good Abduction 4 Good Adduction 5 Normal External Rotation 4 Good Internal Rotation 4 Good Right Flexion (L2) 3 Fair Abduction 3+ Fair+ Adduction 4- Good- External Rotation 3 Fair Internal Rotation 3 Fair Knee Strength Knee Manual Muscle Testing Left Flexion (S2) 4 Good Extension (L3) 4 Good Right Flexion (S2) 4- Good- Extension (L3) 4 Good PT-OP-Q Treatments Start: 12/09/22 16:56 Freq: Status: Active Protocol: Document 01/24/23 09:47 BS (Rec: 01/24/23 11:03 BS [id number]) Therapeutic Activity Therapeutic Activity Sit to stand Comments sit>stand with various ADs DME Comments use of sock aid, shoe horn, & public health training assistant for dressing indep post surgery Log roll Comments demo & verbal instructions followed by trial of pt with step by step instructions. Set up in sidelying as well during w/ proper pillow positioning under neck & between legs for sleeping on R side. Gait Training Gait Activity FWW Distance/Duration 50ft Comments intro to FWW for post surgery, gait SPC Comments SPC height education, gait with SPC ~80ft, & stair training w/ step to pattern & SPC Self-Care/Home Management Treatment Education Other Education 24 min: education on expectations after upcoming surgery- DME that will be needed for home/bathroom set up & ADLs, log roll, spinal precautions following surgery, pain medications, recliner set up at home, discharge options from hospital, and PT expectations post surgery PT-OP-T Assessment and Plan Start: 12/09/22 16:56 Freq: Status: Active Protocol: Document 01/24/23 09:47 BS (Rec: 01/24/23 11:03 BS [id number]) Physical Therapy Assessment Goals Stairs Impairment Pt with pain and difficulty with ascending/descending stairs. Short Term Goal (STG) Pt able to ascend/descend 4 in step without increase in hip pain. 01/02/23: Pt with reported mild increase in hip pain with ascending/descending 4 in step with hand rails. STG Duration 01/02/23 Alf Goal (LTG) Pt able to ascend/descend 6 in step without increase in hip pain. LTG Duration 02/13/23 Hip ROM Impairment Pt with limited R hip mobility secondary to pain. Short Term Goal (STG) Pt with 5 deg improvement in hip ROM in each direction. 01/06/23: Goal met STG Duration 01/02/23 Alf Goal (LTG) Pt with 8 deg improvement in hip ROM in each direction. 01/17/23: Progressing towards goal. Pt demonstrates improved hip mobility since IE. LTG Duration 02/13/23 5xSTS test Impairment strength Impairment Pt with score of 33 sec on 5x STS test. Short Term Goal (STG) Pt with score of 28 sec on 5xSTS test. 01/03/23: Goal met STG Duration 01/02/23 Outreach Counselor Goal (LTG) Pt with score of 23 sec on 5xSTS test. 01/17/23: Pt with time of 21 sec on 5xSTS test LTG Duration 02/13/23 Oswestry Impairment Pt with score of 48% on Oswestry. Alf Goal (LTG) Pt with score of <25% on Oswestry. 01/17/23: Pt with score of 44% on Oswestry. LTG Duration 02/13/23 Donning shoes Impairment Pt unable to don shoes without pain. Outreach Counselor Goal (LTG) Pt able to don shoes without increase in pain. 01/17/23: Pt continues to report difficulty with donning R shoe. LTG Duration 02/13/23 Assessment Summary Assessment Pt presented with increased sx in hip and back since last visit. Pt brought in own SPC today and it was adjusted to best fit pt. Discussed with pt upcoming surgery in which pt had no information regarding expectations post op. Pt educated on various aspects including different ADs, DME to assist w/ ADLS, precautions , etc. Pt demonstrated good understanding of gait with both SPC & FWW which she was SBA for, sit to stands w/ FWW and UE placement,and log roll technique. Pt was very thankful for information and encouraged to ask further questions regarding medications and surgery details to this coming at appointment. Physical Therapy Plan Frequency and Duration Frequency of Treatment 2x/Week Duration of treatment (weeks) 9 Plan of Care Start Date 12/12/22 Plan of Care End Date 02/13/23 Next Visit Focus/Plan Next Note Type Treatment Note Next Visit Plan Check in regarding any more questions about post op expectations following f/u w/ dr on 01/26. Reassess log roll technique. Continue to progress hip mobility and low level hip & trunk strength. Work on sit> stands,
--- NOTE | 2023-01-27 13:22 | PT.OTN ---
Current Diagnoses Sciatica, left side (01/27/23) Physical Therapy Treatment Note PT-OP-A Visit Information Start: 12/09/22 16:56 Freq: Status: Active Protocol: Document 01/27/23 09:41 NM (Rec: 01/27/23 10:26 NM [id number]) Out-Patient Physical Therapy Visit Information Visit Information Visit Type Treatment Note Visit Start Time 09:40 Visit Stop Time 10:25 Total Visit Minutes 45 Visit Number 13 Number of ALLOPATHIC DOCTOR Visits 0 Evaluation Information Evaluation Date 12/12/22 PT-OP-B Current Condition Start: 12/09/22 16:56 Freq: Status: Active Protocol: Document 12/12/22 15:16 AM (Rec: 12/12/22 16:41 AM [id number]) Current Condition History of Current Condition Onset Date chronic, worsened in June 2022 Current Complaints R hip pain and low back pain. 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 Pt went to the staff electronic warfare officer and got new shoes and a new orthotic. Pt reports that she has had R hip pain. Pt has had increase in R hip pain since June 2022 that feels mechanical. Pt was seen for L sciatic symptom that resolved with steroid/tramadol. Pt reports that she does swim 3x/ week. Pt reports pain at hip/ back with walking less than 1/ 4 mile. Difficuly with walking to mailbox. Difficulty with donning R shoe. Pt with difficulty with climbing stairs. Pt with difficulty getting on to ground for yard work. Prior Treatments and Tests Hip [id number], lumbar MRI-At L4-L5, there is a left foraminal disc extrusion, with superior migration of disc material. There is compression seen upon the exiting left L4 nerve root. At L5-S1, there is grade 1 anterolisthesis, with associated pars defects. On the right, there is moderate to severe neural foraminal narrowing, with associated compression upon the exiting right L5 nerve root. Future Testing and Treatments Planned Pt will see Dr. Matt Prior Functional Status Baseline Function- ADL's Independent Baseline Function- Mobility Independent Current Functional Impairments (Reported) Functional Limitations- ADL's Painful, difficulty with donning shoes Functional Limitations- Mobility/Gait Painful Functional Limitations- Recreation/ Unable to garden Hobbies PT-OP-C Subjective Start: 12/09/22 16:56 Freq: Status: Active Protocol: Document 01/27/23 09:41 NM (Rec: 01/27/23 10:26 NM [id number]) OP-PT Subjective Patient Comments Patient Comments Pt reports that she is tired today and her RLE hurts 4/10 ( angela her hip). She had a good appt with her doctor yesterday about her upcoming surgery ( 02/15). She has not been compliant with her HEP recently, but she is planning on performing from now until her surgery. PT-OP-D Balance Start: 12/09/22 16:56 Freq: Status: Active Protocol: Document 12/12/22 15:16 AM (Rec: 12/12/22 16:41 AM [id number]) Balance Tests Single Limb Standing Single Limb- Right unable Single Limb- Left 2 PT-OP-E Functional Tests Start: 12/09/22 16:56 Freq: Status: Active Protocol: Document 01/17/23 13:32 AM (Rec: 01/17/23 14:47 AM [id number]) Functional Tests Five Times Sit to Stand Test Score 18 sec Comments height of hi-low table at 21 inches PT-OP-G Mobility & Gait Start: 12/09/22 16:56 Freq: Status: Active Protocol: Document 12/12/22 15:16 AM (Rec: 12/12/22 16:41 AM [id number]) OP Gait Assessment Gait Gait Assistance Required: Independent Assistive Devices Assistive Device None Gait Deviations General Gait Pattern Antalgic,Decreased Stride Length,Lateral Trunk Lean Factors Limiting Gait Function Factors Limiting Gait Function Decreased Activity Tolerance, Decreased Strength,Limited Range of Motion,Pain,Poor Balance Comments Gait Comments Pt with R lateral rotation at hip during gait PT-OP-J Posture/Palpation/Skin Start: 12/09/22 16:56 Freq: Status: Active Protocol: Document 12/12/22 15:16 AM (Rec: 12/12/22 16:41 AM [id number]) Posture Evaluation Position Standing L-Spine Posture Increased Lordosis Pelvis Posture (R) Rotated Anterior Ankle/Foot Posture (R) Pronated Foot Arch (R) Low Arch PT-OP-K Range of Motion Start: 12/09/22 16:56 Freq: Status: Active Protocol: Document 01/17/23 13:32 AM (Rec: 01/17/23 14:47 AM [id number]) Hip Goniometric Range of Motion Hip Right Active Flexion w/Knee Flexed 98 Internal Rotation 15 External Rotation 30 Comments flexion AAROM PT-OP-M Strength Start: 12/09/22 16:56 Freq: Status: Active Protocol: Document 12/12/22 15:16 AM (Rec: 12/12/22 16:41 AM [id number]) Hip Strength Hip Manual Muscle Testing Left Flexion (L2) 4 Good Abduction 4 Good Adduction 5 Normal External Rotation 4 Good Internal Rotation 4 Good Right Flexion (L2) 3 Fair Abduction 3+ Fair+ Adduction 4- Good- External Rotation 3 Fair Internal Rotation 3 Fair Knee Strength Knee Manual Muscle Testing Left Flexion (S2) 4 Good Extension (L3) 4 Good Right Flexion (S2) 4- Good- Extension (L3) 4 Good PT-OP-Q Treatments Start: 12/09/22 16:56 Freq: Status: Active Protocol: Document 01/27/23 09:41 NM (Rec: 01/27/23 10:26 NM [id number]) Therapeutic Exercises Supine Exercises Hip flexor iso Equipment Used swissball under legs, pt pushes down into R thigh with hand Reps/Minutes 5x10 Sidelying Exercises Clam shells Sidelying Exercise Name cues to limit trunk/hip rotation Side bilateral Resistance body weight Reps/Minutes 2x10 Comments ROM limited due to straining feeling in her R adductors Therapeutic Activity Therapeutic Activity Stairs Reps/Minutes 6 steps, 1HHA on R rail; 2 sets x 4 stairs ascent/descent ea Comments 1. using spc to similate post- op experience; requires cues for sequencing initially 2. without AD, LLE leading x2 sets and RLE leading x2 set. Cues for more knee flex due to painful hip flex with RLE to allow for improved foot clearance as pt is hitting toe on stairs during ascent. SBA Sit to stand Reps/Minutes 1x10 ea Comments STS with spc and RW, no UE support from surface (~22 to mimic dining room chairs at home) Log roll Reps/Minutes 5 min Comments Demo & verbal instructions followed by trial of pt with step by step instructions. Set up in sidelying as well during w/ proper pillow positioning under neck & between legs for sleeping on R side. 1. log roll 2. EOB<>log roll, x4 ea side Gait Training Gait Activity FWW Distance/Duration 2 min Treatment Focus to similate post-op environment, offload low back within precautions Comments intro to FWW for post surgery, gait SPC Distance/Duration 6 min Treatment Focus to similate post-op environment, offload low back within precautions Comments SPC height education, gait with SPC ~80ft, & stair training w/ step to pattern & SPC. Cues for sequencing on stairs, keep spc closer to body for better support during gait as pt has tendency to stick spc far to the side Manual Therapy Treatment Manual Techniques Traction Type manual Body Position Hooklying Reps/Duration x2 min Comments LE on nigerian ball, PT holding pt ankles; pt reports relief of symptoms PT-OP-T Assessment and Plan Start: 12/09/22 16:56 Freq: Status: Active Protocol: Document 01/27/23 09:41 NM (Rec: 01/27/23 10:26 NM [id number]) Physical Therapy Assessment Rehab Potential Rehabilitation Potential Good Evaluation Complexity Number of Personal Factors/Comorbidities 1-2 Number of Body Systems Impaired 1-2 Clinical Presentation at Evaluation Stable Impairments Impairments Activity Tolerance,Balance, Coordination,Functional Activities,Functional Mobility ,Gait,Pain,Posture,ROM,Soft Tissue Mobility,Strength Goals Stairs Impairment Pt with pain and difficulty with ascending/descending stairs. Short Term Goal (STG) Pt able to ascend/descend 4 in step without increase in hip pain. 01/02/23: Pt with reported mild increase in hip pain with ascending/descending 4 in step with hand rails. STG Duration 01/02/23 Aircraft Engine Mechanic Overhaul Goal (LTG) Pt able to ascend/descend 6 in step without increase in hip pain. LTG Duration 02/13/23 Hip ROM Impairment Pt with limited R hip mobility secondary to pain. Short Term Goal (STG) Pt with 5 deg improvement in hip ROM in each direction. 01/06/23: Goal met STG Duration 01/02/23 Correction Goal (LTG) Pt with 8 deg improvement in hip ROM in each direction. 01/17/23: Progressing towards goal. Pt demonstrates improved hip mobility since IE. LTG Duration 02/13/23 5xSTS test Impairment strength Impairment Pt with score of 33 sec on 5x STS test. Short Term Goal (STG) Pt with score of 28 sec on 5xSTS test. 01/03/23: Goal met STG Duration 01/02/23 Aircraft Engine Mechanic Overhaul Goal (LTG) Pt with score of 23 sec on 5xSTS test. 01/17/23: Pt with time of 21 sec on 5xSTS test LTG Duration 02/13/23 Oswestry Impairment Pt with score of 48% on Oswestry. Correction Goal (LTG) Pt with score of <25% on Oswestry. 01/17/23: Pt with score of 44% on Oswestry. LTG Duration 02/13/23 Donning shoes Impairment Pt unable to don shoes without pain. Aircraft Engine Mechanic Overhaul Goal (LTG) Pt able to don shoes without increase in pain. 01/17/23: Pt continues to report difficulty with donning R shoe. LTG Duration 02/13/23 Assessment Summary Assessment Pt tolerated tmt well, but experiences increased pain with R hip flexion after gait, stairs, and exercises. Reviewed AD use (spc and FWW) during gait with step-thru pattern and stairs with step- to pattern. Pt requires cues initially for sequencing on stairs and spc placement for safety during gait. Continued with low back and hip strengthening for pain releif and to maximize gains within a pain-free range prior to discharge. Pt would benefit from skilled PT to address deficits in hip/trunk ROM, strength, gait, and endurance for improved activity tolerance and better QOL. Physical Therapy Plan Frequency and Duration Frequency of Treatment 2x/Week Duration of treatment (weeks) 9 Plan of Care Start Date 12/12/22 Plan of Care End Date 02/13/23 Therapeutic Interventions Therapeutic Interventions Balance Training,Gait Training ,Home Exercise Program,Joint Mobilizations,Manual Therapy, Neuromuscular Re-education, Patient/Caregiver Education, Self-Care/Home Management,Soft Tissue Mobilization,Taping, Therapeutic Activities, Therapeutic Exercises Modalities Cold Pack/Ice Massage,Electric Stimulation,Hot Packs, Ultrasound Next Visit Focus/Plan Next Note Type Treatment Note Next Visit Plan Continue to progress hip mobility and low level hip & trunk strength. Work on sit> stands
--- NOTE | 2023-01-31 17:37 | PT.OTN ---
Addendum entered and electronically signed by Celestina Millard, PT 01/31/23 17:47: PT direct supervision and direction to PT student. Original Note: Current Diagnoses Sciatica, left side (01/31/23) Physical Therapy Treatment Note PT-OP-A Visit Information Start: 12/09/22 16:56 Freq: Status: Active Protocol: Document 01/31/23 09:09 BS (Rec: 01/31/23 12:40 BS [id number]) Out-Patient Physical Therapy Visit Information Visit Information Visit Type Discharge Summary Visit Start Time 09:06 Visit Stop Time 09:45 Total Visit Minutes 39 Visit Number 14 Number of SPLITTER OPERATOR Visits 0 PT-OP-B Current Condition Start: 12/09/22 16:56 Freq: Status: Active Protocol: Document 12/12/22 15:16 AM (Rec: 12/12/22 16:41 AM [id number]) Current Condition History of Current Condition Onset Date chronic, worsened in June 2022 Current Complaints R hip pain and low back pain. 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 Pt went to the auto inspector and got new shoes and a new orthotic. Pt reports that she has had R hip pain. Pt has had increase in R hip pain since June 2022 that feels mechanical. Pt was seen for L sciatic symptom that resolved with steroid/tramadol. Pt reports that she does swim 3x/ week. Pt reports pain at hip/ back with walking less than 1/ 4 mile. Difficuly with walking to mailbox. Difficulty with donning R shoe. Pt with difficulty with climbing stairs. Pt with difficulty getting on to ground for yard work. Prior Treatments and Tests Hip [id number]-[id number], lumbar MRI-At L4-L5, there is a left foraminal disc extrusion, with superior migration of disc material. There is compression seen upon the exiting left L4 nerve root. At L5-S1, there is grade 1 anterolisthesis, with associated pars defects. On the right, there is moderate to severe neural foraminal narrowing, with associated compression upon the exiting right L5 nerve root. Future Testing and Treatments Planned Pt will see Dr. Matt Prior Functional Status Baseline Function- ADL's Independent Baseline Function- Mobility Independent Current Functional Impairments (Reported) Functional Limitations- ADL's Painful, difficulty with donning shoes Functional Limitations- Mobility/Gait Painful Functional Limitations- Recreation/ Unable to garden Hobbies PT-OP-C Subjective Start: 12/09/22 16:56 Freq: Status: Active Protocol: Document 01/31/23 09:09 BS (Rec: 01/31/23 12:40 BS [id number]) OP-PT Subjective Patient Comments Patient Comments Pt reports no significant changes, getting everything she needs ready for upcoming surgery. PT-OP-D Balance Start: 12/09/22 16:56 Freq: Status: Active Protocol: Document 12/12/22 15:16 AM (Rec: 12/12/22 16:41 AM [id number]) Balance Tests Single Limb Standing Single Limb- Right unable Single Limb- Left 2 PT-OP-E Functional Tests Start: 12/09/22 16:56 Freq: Status: Active Protocol: Document 01/31/23 09:09 BS (Rec: 01/31/23 12:40 BS [id number]) Functional Tests Five Times Sit to Stand Test Score 11.7s Comments height of hi-low table at 21 inches, sharp pain in R hip PT-OP-G Mobility & Gait Start: 12/09/22 16:56 Freq: Status: Active Protocol: Document 12/12/22 15:16 AM (Rec: 12/12/22 16:41 AM [id number]) OP Gait Assessment Gait Gait Assistance Required: Independent Assistive Devices Assistive Device None Gait Deviations General Gait Pattern Antalgic,Decreased Stride Length,Lateral Trunk Lean Factors Limiting Gait Function Factors Limiting Gait Function Decreased Activity Tolerance, Decreased Strength,Limited Range of Motion,Pain,Poor Balance Comments Gait Comments Pt with R lateral rotation at hip during gait PT-OP-J Posture/Palpation/Skin Start: 12/09/22 16:56 Freq: Status: Active Protocol: Document 12/12/22 15:16 AM (Rec: 12/12/22 16:41 AM [id number]) Posture Evaluation Position Standing L-Spine Posture Increased Lordosis Pelvis Posture (R) Rotated Anterior Ankle/Foot Posture (R) Pronated Foot Arch (R) Low Arch PT-OP-K Range of Motion Start: 12/09/22 16:56 Freq: Status: Active Protocol: Document 01/31/23 09:09 BS (Rec: 12/05/23 12:40 BS [id number]) Hip Goniometric Range of Motion Hip Left Active Internal Rotation 35 External Rotation 30 Right Active Flexion w/Knee Flexed 100 Internal Rotation 16 External Rotation 35 Comments flexion AAROM PT-OP-M Strength Start: 12/09/22 16:56 Freq: Status: Active Protocol: Document 12/12/22 15:16 AM (Rec: 12/12/22 16:41 AM [id number]) Hip Strength Hip Manual Muscle Testing Left Flexion (L2) 4 Good Abduction 4 Good Adduction 5 Normal External Rotation 4 Good Internal Rotation 4 Good Right Flexion (L2) 3 Fair Abduction 3+ Fair+ Adduction 4- Good- External Rotation 3 Fair Internal Rotation 3 Fair Knee Strength Knee Manual Muscle Testing Left Flexion (S2) 4 Good Extension (L3) 4 Good Right Flexion (S2) 4- Good- Extension (L3) 4 Good PT-OP-Q Treatments Start: 12/09/22 16:56 Freq: Status: Active Protocol: Document 01/31/23 09:09 BS (Rec: 01/31/23 12:40 BS [id number]) Therapeutic Exercises Supine Exercises Hip flexion AAROM Supine Exercise Name hip flex AROM Side right BKFO Side bilateral Reps/Minutes x5 Comments drop till stretch felt Standing Exercises Sit>stands Standing Exercise Name sit to stands Side bilateral Reps/Minutes x8 Manual Therapy Treatment Soft Tissue Mobilization adductors Comments R add STM Joint Mobilizations S-I glide Joint R hip Grade III Body Position Supine Comments R inf glide hip FM w/ mob belt Self-Care/Home Management Treatment Education Other Education 9min: edu on post op mobility, getting in and out of car s/p including: how to use L leg to help w/ R leg weakness, being careful of lifting leg w / spinal precautions, and utilizing recline on seat to assist. Edu on stairs and options for home set up w/ railing & use of cane. PT-OP-T Assessment and Plan Start: 12/09/22 16:56 Freq: Status: Active Protocol: Document 01/31/23 09:09 BS (Rec: 01/31/23 12:40 BS [id number]) Physical Therapy Assessment Goals Stairs Impairment Pt with pain and difficulty with ascending/descending stairs. Short Term Goal (STG) Pt able to ascend/descend 4 in step without increase in hip pain. 01/02/23: Pt with reported mild increase in hip pain with ascending/descending 4 in step with hand rails. 01/31/23- w/ step to stairs pt has 3-4/10 pain which is mild inc in pain from baseline STG Duration 01/02/23 Filter Worker Goal (LTG) Pt able to ascend/descend 6 in step without increase in hip pain. LTG Duration 02/13/23 Hip ROM Impairment Pt with limited R hip mobility secondary to pain. Short Term Goal (STG) Pt with 5 deg improvement in hip ROM in each direction. 01/06/23: Goal met STG Duration 01/02/23 Fpc Goal (LTG) Pt with 8 deg improvement in hip ROM in each direction. 01/17/23: Progressing towards goal. Pt demonstrates improved hip mobility since IE. LTG Duration 02/13/23 5xSTS test Impairment strength Impairment Pt with score of 33 sec on 5x STS test. Short Term Goal (STG) Pt with score of 28 sec on 5xSTS test. 01/03/23: Goal met STG Duration 01/02/23 Filter Worker Goal (LTG) Pt with score of 23 sec on 5xSTS test. 01/17/23: Pt with time of 21 sec on 5xSTS test 01/31: pt did 5xSTS in 11.7s from 21 height LTG Duration 02/13/23 Oswestry Impairment Pt with score of 48% on Oswestry. Fpc Goal (LTG) Pt with score of <25% on Oswestry. 01/17/23: Pt with score of 44% on Oswestry. LTG Duration 02/13/23 Donning shoes Impairment Pt unable to don shoes without pain. Fpc Goal (LTG) Pt able to don shoes without increase in pain. 01/17/23: Pt continues to report difficulty with donning R shoe. 01/31: still painful throughout knee and hip when donning R shoe LTG Duration 02/13/23 Assessment Summary Assessment Pt seen today for PT discharge visit. Pt improved on 5xSTS to 11.7s however was completed on 21 surface. Pt continues to have sig pain in R hip limiting overall functional mobility. Discussed pt concerns following surgery and best options for getting in/ out of car with demo completed on mat table. Pt ROM in R hip continues to be limited by pain. Improved some with manual. Pt to d/c for upcoming spinal sugery scheduled on . Physical Therapy Plan Discharge Physical Therapy Discharge Reasons Plateau in Progress Discharge Comments Pt discharge d/t upcoming back surgery scheduled on 02/14/23 .
== END 2023-02-06 14:12 | disposition home or self-care (01) ==
LOC: PHYS 09:00
PROVIDERS: Family Provider Nurse Practitioner; PCP Nurse Practitioner; Referring Provider Nurse Practitioner Family; Visit Provider Nurse Practitioner Family
DX: M54.32 Sciatica, left side (principal)
CPT/HCPCS: 97110; 97116; 97140; 97161; 97530; 97535

== ENCOUNTER 2023-02-10 06:38 | Day surgery (SDC) | payer MEDICARE, SELFPAY ==
[2023-02-07 13:45] VITALS: BMI 35.3
--- NOTE | 2023-02-10 | PATH_ITS ---
[facility] Accession Number: [id number] No. of containers..02 Tissue . 01 Material submitted: . PART A: endocervix - ENDOCERVICAL CURETTINGS PART B: endometrium - ENDOMETRIAL CURETTINGS . 01 Diagnosis: A. Endocervix, Curettage: Scant benign endocervical epithelium/mucosa. Negative for dysplasia. . B. Endometrium, Curettage: Scant detached endometrial glands. Benign endocervical epithelium/mucosa. Negative for significant atypia. [facility] 02/22/2023 1707 Local . 01 Electronically signed: . Lidia Lindquist MD, Pathologist NPI- [id number] . 01 Gross description: . Part A: ENDOCERVICAL CURETTINGS: Received in formalin are minute fragments of mucoid and hemorrhagic material measuring 2.0 x 2.0 x 0.4 cm in aggregate. Submitted in toto in 1 cassette. Part B: ENDOMETRIAL CURETTINGS: Received in formalin are minute fragments of mucoid and hemorrhagic material measuring 2.0 x 2.0 x 0.4 cm in aggregate. Submitted in toto in 1 cassette. /SHASHA 02/13/2023 1937 Local . 01 Pathologist provided ICD-10: N95.0 . 01 CPT . 635723, [id number] Specimen Comment: A courtesy copy of this report has been sent to [phone] Performed at: 01 [facility] [address] [place] [address], [place], [place] [id number] MD Mak Cullen MD Phone: [phone]
[2023-02-10] MEDS: LACTATED RINGERS 1,000 ML 42 ML IV (06:49)
[2023-02-10 06:52] VITALS: BP 152/93; PULSE 83; RESP 16; TEMP 36.1; O2SAT 96; BMI 35.3
--- NOTE | 2023-02-10 07:43 | PM.PREOP ---
Pre-operative Note COVID-19 COVID-19 status: Not tested Interval Note History & Physical reviewed/Exam performed by Physician: Yes Changes to H&P: No
--- NOTE | 2023-02-10 08:07 | SUR.OPER ---
Lithotomy on padded OR bed, head on pillow, arms secured on padded arm boards at <90 degrees abduction. Legs secured in padded yellow fins stirrups.
[2023-02-10 08:25] VITALS: BP 122/78; PULSE 84; RESP 12; TEMP 36.2; O2SAT 94
--- NOTE | 2023-02-10 08:26 | PM.GYNOP.1 ---
Operative Date/Time/Diagnoses Date of procedure: 02/10/23 Time of procedure: 07:45 Pre-op diagnosis: Post menopausal bleeding Thickened endometrial stripe on ultrasound Post-op diagnosis: same Procedure & Clinicians Procedure: Procedures Operation Date: 02/10/23 07:45 Actual Procedure Side Surgeon p Hysteroscopy, D&C of the uterus Maximino Du MD Indications: Harleen returns today for follow-up of her intermittent postmenopausal bleeding associated with a slightly thickened endometrial stripe but negative endometrial biopsy. Since August of this year, she is had more frequent and heavier episodes of spotting and wants to move forward with complete evaluation of the endometrial cavity via hysteroscopy with dilation and curettage of the uterus. She presents today for her scheduled surgery. Surgeon: Maximino Du Anesthesia Type: General Operative Notes Findings: Markedly atrophic and somewhat ecchymotic portio and upper vagina. Endocervical canal as well as the endometrial cavity itself is unremarkable except for atrophic changes and a diffusely ecchymotic endometrial surface. There were no distortions of the endometrial cavity or focal lesions noted on hysteroscopy. Closure Type: not applicable Specimen(s): endometrial curettings and other (Endocervical curettings) Estimated blood loss (mL): 5 Blood products transfused: none Procedure in detail: With the patient under general LMA in the modified dorsal lithotomy position, the perineum, vagina, and lower abdomen were prepped and draped in the usual fashion for hysteroscopy with endometrial ablation. A pre-surgical safety time-out was then taken in accordance with [facility] Main OR protocols. A bivalve speculum was inserted in the vagina and the cervix visualized. The anterior lip of the cervix was grasped with a single-tooth tenaculum and the endocervical canal was then dilated to 6 mm diameter. Hysteroscope was placed through the endocervical canal into the endometrial cavity and the cavity was visualized. There were no localized abnormalities within the endometrial cavity and the endometrium itself was unremarkable except as noted above. Both tubal ostia were visualized. The hysteroscope was then withdrawn and a fractional dilation and curettage was accomplished with separate pathologic specimen submitted for the endometrial and endocervical curettings. The uterine cavity was then sounded with the NovaSure device and found to be 6.0 cm in depth. The NovaSure device was then inserted through the endocervical canal into the endometrial cavity and the width of the cavity determined to be 4.7 cm. Cavity integrity test demonstrated the cavity to be intact and ablation was initiated. Ablation time was 60 seconds with power utilized 158 w. The NovaSure device was then removed from the endometrial cavity and hysteroscopy demonstrated excellent ablation effect. The tenaculum was then removed from the anterior lip of the cervix and no bleeding was encountered. The speculum was then removed from the vagina and the patient awakened from anesthesia. She was then transferred to the PACU for a period of observation and recovery having tolerated the procedure well. Complications: none Post-operative Condition: stable Disposition: PACU Plan for aftercare: Routine post-op care.
[2023-02-10 08:30] VITALS: BP 126/80; PULSE 67; RESP 11; O2SAT 95
[2023-02-10 08:35] VITALS: BP 133/85; PULSE 73; RESP 14; O2SAT 95
[2023-02-10 08:45] VITALS: BP 167/95; PULSE 75; RESP 18; O2SAT 95
== END 2023-02-10 09:07 | disposition home or self-care (01) ==
PROVIDERS: Family Provider Nurse Practitioner; PCP Nurse Practitioner; Referring Provider Obstetrics & Gynecology; Visit Provider Obstetrics & Gynecology
PROC: 0UDB8ZZ Extraction of Endometrium, Via Natural or Artificial Opening Endoscopic (ICD-10-PCS; CPT 58558; principal; 2023-02-10 07:45)
DX: N93.8 Other specified abnormal uterine and vaginal bleeding (principal)
CPT/HCPCS: 58558; J1100; J2704; J3010

== ENCOUNTER 2023-02-15 07:22 | Inpatient (IN) | payer MEDICARE, SELFPAY ==
[2023-02-07 12:54] VITALS: BMI 35.3
[2023-02-15] VITALS (17 sets, daily range): BP systolic 89–149; BP diastolic 55–96; PULSE 61–91; RESP 12–20; TEMP 36.3–37.4; O2SAT 91–97; BMI 35.3
--- NOTE | 2023-02-15 | DI.RAD.S_ITS ---
PROCEDURE: XR LUMBAR SPINE 2-3V INDICATIONS: L5-S1 TLIF TECHNIQUE: Fluoroscopic guidance utilized for a surgical fusion. COMPARISON: [facility], [place], XR LUMBAR SPINE 2-3V, 09/19/2022, 11:38. FINDINGS: Fluoroscopic images demonstrate interbody and posterior surgical fusion at L5-S1. IMPRESSION: Fluoroscopic guidance. Dictated by: Anderson Holcomb M.D. on 02/15/2023 at 12:57 Approved by: Anderson Holcomb M.D. on 02/15/2023 at 12:57
[2023-02-15] MEDS: ACETAMINOPHEN 325 MG TABLET 975 MG PO (08:30)
[2023-02-15] MEDS: GABAPENTIN 600 MG TABLET PO (08:30)
[2023-02-15] MEDS: LACTATED RINGERS 1,000 ML 42 ML IV ×2 (08:32→11:10)
--- NOTE | 2023-02-15 08:32 | PM.PREOP ---
Pre-operative Note Interval Note History & Physical reviewed/Exam performed by Physician: Yes Changes to H&P: No
[2023-02-15] MEDS: CEFAZOLIN 2 GM/100 ML PREMIX 100 ML IV ×2 (09:09→17:29)
--- NOTE | 2023-02-15 10:00 | SUR.OPER ---
Prone on spine table, head in foam head support, padded chest and pelvic supports, gel pad at knees, lower legs supported by pillows; nipples, genitalia and toes free of pressure, arms secured on foam padded arm boards at <90 degrees abduction. Tape over blanket at thigh secured to table. Gel pad placed between heels.
[2023-02-15] MEDS: BUPIVACAINE 0.25% (PF) 60 ML, EPINEPHrine 0.15 MG INJ (10:50)
[2023-02-15] MEDS: BUPIVACAINE LIPOSOME 266 MG/20 ML VIAL INJ (11:40)
--- NOTE | 2023-02-15 11:51 | P.OP_ITS ---
Operative Date/Time/Diagnoses Date of procedure: 02/15/23 Time of procedure: 08:40 Pre-op diagnosis: 1. L5-S1 spondylolisthesis 2. L5-S1 bilateral foramen stenosis with radiculopathy Post-op diagnosis: same Procedure & Clinicians Procedure: 1. L5-S1 Postero-lateral and posterior interbody fusion 2. L5-S1 interbody cage placement. 3. L5-S1 decompressive laminectomy with bilateral facetecomies 4. L5-S1 Posterior non-segmental instrumentation 5. Donaldson of bone marrow from iliac crest 6. Utilization of microsurgical technique and operating microscope Same procedure as scheduled: Yes Indications: Patient has been having chronic back pain and worsening lumbar radiculopathy. Patient has dynamic instability with L5-S1 grade 2 spondylolisthesis with severe bilateral neuroforaminal stenosis correlating with her symptoms. Patient failed multiple conservative management with worsening pain weakness and numbness in her lower extremity. Patient has been having difficulty performing activity of daily living. After discussing risks benefits of treatment options, patient elected proceed with surgery. Surgeon: Milton Matt Ball Assembler: Amy Decker Click Yes if Unassisted: No Anesthesia Type: General Operative Notes Closure Type: primary Prosthetic devices, grafts, tissues, transplants, or devices: Globus revolve screws, Rise cage Estimated Blood Loss (mL): 100 Blood products transfused: none Procedure in detail: Patient was seen in the preoperative area. Risks and benefits of the surgery was discussed with the patient. Informed consent was obtained from the patient and placed in the chart. Surgical site was marked. Patient was taken to the ope rative room. General anesthesia was administered. Prophylactic antibiotic was given to the patient less than 30 min before the incision was made. Patient was placed into a prone position on the Steven table. Patient's back was then prepped and draped in the sterile fashion. Time-out was performed at this time. Using AP and lateral C-arm imaging the interval between L5-S1 was identified and marked on patient's back. A 2 inch incision 2 in from midline was made on the right side first. The fascia was incised in line with skin incision. Globus MARS retractors was placed inside the incision and docked onto the L5 lamina. Using microsurgical technique and operating microscope, a L5 laminectomy and L5- S1 facetectomy was performed using a Kerrison rongeur. Patient was found have severe lateral recess and neural foramen stenosis which was fully decompressed after the laminectomy facetectomy. More than 75% of the facets were removed during the process of decompression rendering L5-S1 level grossly unstable and required a fusion procedure at the same time. The laminectomy and facetectomy was performed in order to decompress patient's cauda equina as well as the nerve roots exiting at the L5-S1 level. The disc space at L5-S1 was identified. And a total diskectomy was performed at L5-S1 level. The endplates were decorticated using a rasp and shaver. The total diskectomy and decortication was performed at L5-S1 level in order to to accomplish a L5-S1 fusion. The local bone from the laminectomy and facetectomy was saved for local bone grafting. After the total diskectomy and decortication was completed, DBM bone graft material was combined with local bone that was harvested earlier. At this time, a separate skin is incision was made over the iliac crest. A Jamshidi needle was inserted into the iliac crest through a separate skin incision. 5 cc of bone marrow aspiration was obtained through the separate skin incision using a Jamshidi needle from the iliac crest. The bone marrow aspiration was combined with local bone and the DBM bone grafting material. The bone grafting material was placed into the L5-S1 interbody space along with a expandable cage. The cage was expanded to its maximum height using the torque limiting screwdriver. At this time a mirror image incision was made on the left side. The fascia was incised in line with the skin incision. Globus MARS retractor was inserted and docked onto the L5-S1 posterolateral gutter. Using the power drill, posterior- lateral decortication was performed at L5-S1 level until bleeding cortical bone was identified. The remaining bone grafting material was placed into the L5-S1 posterior lateral gutter he order to accomplish posterolateral fusion at the L5- S1 level. Using the double C-arm technique, pedicle screws were placed into the L5-S1 pedicles bilaterally. This was done by placing the Jamshidi needle into the pedicles, then placing the guidewires over the Jamshidi needle, and finally placing the cannulated screws over the guidewires bilaterally. After the pedicle screws were placed, 2 titanium rods was locked into the heads of the pedicle screws using locking caps and torque limiting screwdriver. During the process of cannulated screw insertion, the left S1 guidewire tip was sheared off inside the S1 vertebral body. Approximately 5 mm of the tip the guidewire was left within the S1 vertebral body. The wire tip is within cortical bone and is safe to be left untouched within patient's vertebral body. Thready reducers were used to reduce the patient's spondylolisthesis. Appropriate reduction was achieved and maintained using the hardware. After all the hardware was placed, and confirmed with AP and lateral C-arm imaging, the wound was then irrigated with sterile normal saline and packed with Ray-Vinayak gauze for 3 min to accomplish hemostasis. After the gauze was removed the deep fascia was closed with #1 Vicryl suture. The subcutaneous layer was closed with 2-0 Vicryl. The skin was closed with skin viviana. Patient tolerated the procedure well. There were no complications. Neuro monitoring was used during entire case. Patient's signals were stable throughout entire procedure. The Operation could not have been safely performed without compromising the technical result or length of the procedure, without the assistance of a skilled ophthalmology surgical technician. The ophthalmology surgical technician was medically necessary for proper positioning, retraction and manipulation of instruments, proper exposure, surgical preparation, and manipulation of tissue. Complications: none Post-operative Condition: stable Disposition: PACU Plan for aftercare: Admit to inpatient hospital
[2023-02-15] MEDS: OXYCODONE IR 5 MG TABLET PO (12:40)
[2023-02-15] MEDS: hydrOXYzine 50 MG/ML INJ 25 MG IM (12:40)
--- NOTE | 2023-02-15 13:22 | PC.NURSE ---
Pt arrived from PACU at 1311, A&Ox4, moaning and c/o 7/10 pain to back. VSS on 2L NC. CMS+ bilat UE and LE. Gauze dressing to mid low back c/d/i. Patient and spouse oriented to room and call light. Bed in low position, call light within reach, SCDs on.
[2023-02-15] MEDS: LACTATED RINGERS 1,000 ML 125 ML IV ×2 (13:47→22:04)
--- NOTE | 2023-02-15 14:47 | OT.IPNOTE ---
Pt asleep and just came up to the floor earlier. To check on pt for OT tomorrow.
--- NOTE | 2023-02-15 14:55 | PT.IIE ---
Current Diagnoses Spondylolisthesis, lumbosacral region (02/15/23) Other spondylosis with radiculopathy, lumbar region (02/15/23) Surgery Performed Operation Date: 02/15/23 08:45 Actual Procedures p L5-S1 TLIF - Milton Matt MD Surgical History (Last Updated 02/07/23 @ 13:26 by Kimberley Marquez, RN) Anesthesia Hx of colonoscopy (09/13/19) Uterine polyp (~2014) Medical History (Last Updated 02/07/23 @ 13:10 by Kimberley Marquez RN) Anterolisthesis of lumbar spine Chronic lower back pain Counseling regarding advanced care planning and goals of care Depression Elevated LFTs Fallen arch Family history of malignant hyperthermia Foot pain (~1987) Hip pain (~2016) Hyperlipidemia Hypertension Hypothyroidism (~2013) Pars defect Presence of orthotic device Rosacea Tinnitus (~2005) Physical Therapy Inpatient Evaluation/Re-Eval M1 PT/OT-IP Prior Functional Status Start: 02/15/23 16:01 Freq: NEEDED Status: Active Protocol: Document 02/15/23 14:55 AB (Rec: 02/15/23 16:14 AB [id number]) Medical Review Prior Functional Status Medical History Reviewed Yes Communication able to make needs known Mobility and Gait pt stated that she was independent with all mobilities and ambulation without AD Social History Household Members spouse Living Arrangements House Number of Floors (Floors) Two Floors Number of Stairs To Enter/Railing? 5 steps wide bilateral rails and can only hold on to one rail at a time to enter the house has 15 steps R rail ascending to get to bedroom level Home Environment Standard Height Toilet,Walk in Shower,Built-In Shower Seat Home Equipment Front Wheel Walker,Four Wheel Walker,Straight Cane,Raised Toilet Seat w/Armrests,Shower Seat with Backrest,Hand Held Shower M2 PT-IP Current Condition Start: 02/15/23 16:01 Freq: NEEDED Status: Active Protocol: Document 02/15/23 14:55 AB (Rec: 02/15/23 16:14 AB [email or web address]) Physical Therapy Current Condition Current Condition Evaluation Date 02/15/23 Treatment Diagnosis s/p L5S1 TLIF; difficulty in walking Onset Date 02/15/23 M3 PT-IP Subjective Start: 02/15/23 16:01 Freq: NEEDED Status: Active Protocol: Document 02/15/23 14:55 AB (Rec: 02/15/23 16:14 AB [id number]) Subjective Physical Therapy Visit Type Type Initial Evaluation Visit Start Time 14:55 Visit Stop Time 15:35 Total Visit Minutes 40 Number of ROLL BUCKER Visits 0 Physical Therapy Visit Comments Patient Comments agreeable to do PT Therapy Pain Assessment Pain When Pain Assessed At Rest Pain Present Pain Present Pain Reported Location Lower Back Intensity 5 Scale Used Numeric (0 - 10) Pain Management Techniques Distraction,Modification of Treatment,Re-positioning, Timing of Activity with Medications M4 PT-IP Mobility and Gait Start: 02/15/23 16:01 Freq: NEEDED Status: Active Protocol: Document 02/15/23 14:55 AB (Rec: 02/15/23 16:14 AB [id number]) PT-Bed Mobility Assessment Rolling Type of Rolling Log Rolling Level of Assist Minimal Assistance Supine to Sit Supine to Sit Minimal Assistance,1 Person Assistance,Bedrails Sit to Supine Sit to Supine Minimal Assistance,1 Person Assistance,Bedrails PT-Transfer Assessment Sit to and From Stand Sit to and from Stand Moderate Assistance,1 Person Assistance,Use of Upper Extremities Equipment Transfer Assistive Device Gait Belt,Front Wheeled Walker Orthotic/Prosthetic Devices or Brace: No Comments Mobility Comments pt supine in bed. BP: 144/70. pt initially drowsy but agreed to do PT and able to stay awake during mobility. spouse in room with pt. PLOF and home set up obtained from pt. post-op folder provided and reviewed with pt. educated pt and spouse regarding back precautions and log roll bed mobility. pt completed log roll supine to sit mod A and max cues for techniques. pt able to sit on EOB CGA. c/o lightheadedness. BP checked; 149/67. O2 sat at RA 97%. pt agreed to stand to reposition in bed. completed sit to stand mod A and cues and was able to take side steps towards HOB mod A and cues. presents with unsteady gait. pt sat on EOB and completed sit to supine mod A and max cues for log roll sit to supine. positioned pt on the chair. call light and table placed within reach. set up caregiver training with spouse at 9am tomorrow. Gait Assessment Comments Gait Comments able to take side steps using FWW mod A for positioning in bed. PT-Balance Assessment Sitting Balance and Reactions Static Sitting Balance Ability Good Dynamic Sitting Balance Ability Fair Standing Balance and Reactions Static Standing Balance Ability Fair Dynamic Standing Balance Ability Poor Device Used FWW M5 PT-IP Objective Assessments Start: 02/15/23 16:01 Freq: NEEDED Status: Active Protocol: Document 02/15/23 14:55 AB (Rec: 02/15/23 16:14 AB [id number]) Orientation Orientation/Cognition Level of Alertness Alert Orientation Name,Place,Situation Safety Awareness Decreased Safety Awareness Memory Description Short Term Impaired Gross Range of Motion Lower Extremity ROM Assessment Within Functional Limits Strength Lower Extremity Strength Assessment Within Functional Limits Comments Strength Comments (+) R knee crepitus and tightness Sensation Assessment Sensation Gross Sensation WNL Muscle Tone Muscle Tone WNL Yes M6 PT-IP Treatment Start: 02/15/23 16:01 Freq: NEEDED Status: Active Protocol: Document 02/15/23 14:55 AB (Rec: 02/15/23 16:14 AB [id number]) Physical Therapy Treatment Education Education Provided Precautions,Weight Bearing Status,Post-Op Packet,Safety M7 PT-IP Assessment and Plan Start: 02/15/23 16:01 Freq: NEEDED Status: Active Protocol: Document 02/15/23 14:55 AB (Rec: 02/15/23 16:14 AB [email or web address]) PT Summary Assessment and Plan Potential Rehabilitation Potential Fair Status of Condition at Evaluation Evolving Summary Impairments Pain,ROM,Strength,Balance, Coordination,Sensation,Tone, Cognition,Bed Mobility, Transfers,Gait,Activity Tolerance Assessment Summary pt is a 72 y/o F s/p L5S1 TLIF POD0. pt has back precautions . pt requiring mod A with mobility using FWW and plans to go home with spouse to assist her. caregiver training set up for tomorrow at 9 am. pt will likley progress during hospital stay. will continue to assess progress. Goals Bed Mobility Goal Independent Transfer Goal Independent,Front Wheeled Walker Gait Goal Independent,Front Wheel Walker Gait Distance 200 Other Goals improve transfers and ambulation usign LRAD SBA ~ 300 ft up/down 15 steps R rail ascending SBA Days to Meet Goals 10 Frequency of Treatment Frequency Of Treatment Twice a Day Treatment Plan Physical Therapy Treatment Plan Bed Mobility Training,Transfer Training,Gait Training, Therapeutic Exercise,Balance Retraining,Post Op Education, Discharge Planning,Hot or Cold Pack,Neuromuscular Re-ed, Coordination Retraining,Manual Therapy Other Recommendations and Next Treatment caregiver trainin/21 @ 9 Focus am Precautions Lumbar Precautions Log Roll,No Twisting,Limit Bending,Lifting Restriction of 10 lbs,Gait Belt above Incisional Area Recommendations To Nursing Amount of Assist Needed 1 Person Assist Discharge Recommendations PT Discharge Recommendations Home with 19/09 Assist Available,Home Health Transportation Needs at Discharge Private Vehicle
[2023-02-15] MEDS: ACETAMINOPHEN 325 MG TABLET 650 MG PO (15:12)
[2023-02-15] MEDS: OXYCODONE IR 10 MG TABLET PO (15:12)
[2023-02-15] MEDS: SENNOSIDES 8.6 MG TABLET 17.2 MG PO (20:31)
[2023-02-15] MEDS: buPROPion SR 100 MG TAB PO (20:31)
[2023-02-15] MEDS: ATORVASTATIN 20 MG TABLET 10 MG PO (20:31)
[2023-02-15] MEDS: DOCUSATE 100 MG CAPSULE PO (20:31)
[2023-02-16] VITALS: BP 142/68; PULSE 74; RESP 16; TEMP 36.4; O2SAT 96
[2023-02-16] MEDS: CEFAZOLIN 2 GM/100 ML PREMIX 100 ML IV (00:01)
[2023-02-16 04:00] VITALS: BP 148/72; PULSE 80; RESP 16; TEMP 36.5; O2SAT 96
[2023-02-16] MEDS: LEVOTHYROXINE 88 MCG TABLET PO (06:39)
[2023-02-16] MEDS: ACETAMINOPHEN 325 MG TABLET 650 MG PO (06:46)
--- NOTE | 2023-02-16 07:40 | P.DS_ITS ---
History of Present Illness History of Present Illness Date Patient Seen: 02/16/23 Time Patient Seen: 07:40 Chief complaint: Back pain Narrative: Back pain is [id number]. Denies fever or chills. No nausea or vomiting. Discharge Providers Provider Date of admission: 02/15/23 07:22 Discharge Date: 02/16/23 Primary care physician: DALE Jimenez Consults: 02/15/23 13:11 Consult to Occupational Therapy Evaluate & Treat Comment: Physician Instructions: Evaluate and treat Consult to Physical Therapy Evaluate & Treat Comment: Physician Instructions: Evaluate and Treat Discharge provider: Mario Bell PA-C Summary Hospital Course Discharge Diagnosis: 1. L5-S1 spondylolisthesis 2. L5-S1 bilateral foramen stenosis with radiculopathy Hospital Course: 1. L5-S1 Postero-lateral and posterior interbody fusion 2. L5-S1 interbody cage placement. 3. L5-S1 decompressive laminectomy with bilateral facetecomies 4. L5-S1 Posterior non-segmental instrumentation 5. [place] of bone marrow from iliac crest 6. Utilization of microsurgical technique and operating microscope Same procedure as scheduled: Yes Indications: Patient has been having chronic back pain and worsening lumbar radiculopathy. Patient has dynamic instability with L5-S1 grade 2 spondylolisthesis with severe bilateral neuroforaminal stenosis correlating with her symptoms. Patient failed multiple conservative management with worsening pain weakness and numbness in her lower extremity. Patient has been having difficulty performing activity of daily living. After discussing risks benefits of treatment options, patient elected proceed with surgery. Surgeon: Milton Matt Sales Exhibitor: Amy Decker Click Yes if Unassisted: No Anesthesia Type: General Operative Notes Closure Type: primary Prosthetic devices, grafts, tissues, transplants, or devices: Globus revolve screws, Rise cage Estimated Blood Loss (mL): 100 Blood products transfused: none Patient admitted to the hospital for the above-mentioned procedure. Patient consented to the same. Patient underwent L5-S1 fusion February 15, 2023. Patient in her room recovering well as in stable condition. Multimodal pain management. Mobilize, limit bending, twisting, lifting. Discharge home today after physical therapy if safe for home environment. Exam Vital Signs (past 8 hours): - 02/16/23 00:00 02/16/23 04:00 Temperature 97.6 F 97.7 F Pulse Rate 74 80 Respiratory Rate 16 16 Blood Pressure 142/68 H 148/72 H Pulse Oximetry 96 96 Oxygen Flow Rate 0 0 Oxygen Delivery Method Room Air Oxygen Flow Rate 0 Narrative Exam Narrative: 72-year-old female resting comfortably in bed in no apparent distress. Dressing is clean, dry and intact. Motor functions intact bilateral lower extremities. Sensation grossly intact to light touch bilateral lower extremities. 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 Hyperlipidemia Counseling regarding advanced care planning and goals of care Presence of orthotic device Chronic lower back pain Elevated LFTs Hypertension Rosacea Depression Hip pain (~2016) Foot pain (~1987) Tinnitus (~2005) Hypothyroidism (~2013) Surgical History (Updated 02/07/23 @ 13:26 by Kimberley Marquez RN) Hx of colonoscopy (09/13/19) Anesthesia Uterine polyp (~2014) Family History Father Stroke Mother Hypertension Social History household members: spouse Smoking Status: Never smoker alcohol intake: current Discharge Assessment & Plan Assessment and Plan Assessment: Patient progressing as expected Plan of Treatment: Multimodal pain management Mobilize with physical therapy, limit bending, twisting, lifting Discharge home today after physical therapy if safe for home environment Discharge Plan Discharge orders & Medications Discharge Orders: Discharge (Order); Ordered 02/16/23 Ordered By: Mario Bell Prescriptions: New acetaminophen 325 mg Tablet 650 mg PO Q6H PRN (Reason: Fever/Mild Pain (1-3)) Qty: 60 0RF hydroxyzine pamoate 25 mg Capsule 25 mg PO Q4HR PRN (Reason: Nausea And Vomiting) Qty: 20 0RF oxycodone 10 mg Tablet 10 mg PO Q3H PRN (Reason: Pain, Severe (7-10)) Qty: 40 0RF Continued levothyroxine 88 mcg tablet See Rx Instructions .ROUTE .COMPLEX Qty: 90 2RF Dose Instruction: TAKE 1 TABLET(88 MCG) BY MOUTH DAILY 30 MINUTES BEFORE BREAKFAST ON AN EMPTY STOMACH Rx Instructions: TAKE 1 TABLET(88 MCG) BY MOUTH DAILY 30 MINUTES BEFORE BREAKFAST ON AN EMPTY STOMACH rosuvastatin 5 mg tablet 5 mg PO DAILY Qty: 90 3RF Rx Instructions: Take 1 tab at bedtime daily for elevated cholesterol bupropion HCl 100 mg tablet sustained-release 12 hr See Rx Instructions .ROUTE .COMPLEX Qty: 180 3RF Dose Instruction: TAKE 1 TABLET(100 MG) BY MOUTH TWICE DAILY FOR DEPRESSION Rx Instructions: TAKE 1 TABLET(100 MG) BY MOUTH TWICE DAILY FOR DEPRESSION lisinopril-hydrochlorothiazide 20-12.5 mg tablet 1 tab PO DAILY Qty: 90 3RF lisinopril 20 mg tablet 20 mg PO DAILY Qty: 90 3RF Rx Instructions: Take 1 tab every evening in addition to the lisinopril/HCTZ scheduled in the morning daily Discontinued acetaminophen 500 mg Capsule 1,500 mg PO DAILY Follow up/Referrals: Joanne Cartagena ARNP [Primary Care Provider] - Milton Matt MD [Physician] - As previously scheduled (Follow up with Mario Bell PA-C, on 03/01/2022 @ 11:10 am at [facility] in [place].) Diet/Activity/Treatments Diet: Diet as Tolerated Activity: No deep bending or twisting at the waist. No lifting over 10 pounds. Cold/Heat Therapy: Heating pad to low back as needed for pain. Skin/Wound/Dressing Care Report to your healthcare provider any signs of infection, such as:: chills, f ever, night sweats, unusual drainage and unusual redness Dressing: May shower. Keep dressing as dry as possible. If dressing becomes wet or dirty, may remove and replace with clean, dry, gauze. No bathing or otherwise soaking incisions. Do not apply any creams, lotions, or ointments to incisions. Visit Report/Discharge Packet Instructions: DI for Prescription Opioid Use, DI for Transforaminal Lumbar Interbody Fusion Stand Alone Forms: Patient Portal/API, Stroke Signs & Symptoms, Surgery Discharge Discharge Data Primary Care Provider: Joanne Cartagena [facility]TE Deep Vein Thrombosis/Pulmonary Embolism Present on Admission: No
[2023-02-16] MEDS: DOCUSATE 100 MG CAPSULE PO (07:59)
[2023-02-16] MEDS: buPROPion SR 100 MG TAB PO (07:59)
[2023-02-16] MEDS: hydroCHLOROthiazide 25 MG TABLET 12.5 MG PO (08:04)
[2023-02-16] MEDS: OXYCODONE IR 10 MG TABLET PO (08:04)
[2023-02-16 08:05] VITALS: BP 144/73; PULSE 74
[2023-02-16] MEDS: lisinopriL 20 MG TABLET 40 MG PO (08:05)
[2023-02-16 08:35] VITALS: BP 144/73; PULSE 74; RESP 19; TEMP 36.8; O2SAT 96
--- NOTE | 2023-02-16 08:56 | PT.IPTN ---
Current Diagnoses Spondylolisthesis, lumbosacral region (02/15/23) Other spondylosis with radiculopathy, lumbar region (02/15/23) Surgery Performed Operation Date: 02/15/23 08:45 Actual Procedures p L5-S1 TLIF - Milton Matt MD Physical Therapy Treatment Note M2 PT-IP Current Condition Start: 02/15/23 16:01 Freq: NEEDED Status: Active Protocol: Document 02/15/23 14:55 AB (Rec: 02/15/23 16:14 AB [id number]) Physical Therapy Current Condition Current Condition Evaluation Date 02/15/23 Treatment Diagnosis s/p L5S1 TLIF; difficulty in walking Onset Date 02/15/23 M3 PT-IP Subjective Start: 02/15/23 16:01 Freq: NEEDED Status: Active Protocol: Document 02/16/23 09:18 TS (Rec: 02/16/23 09:34 TS [id number]) Subjective Physical Therapy Visit Type Type Treatment Note Visit Start Time 08:56 Visit Stop Time 09:17 Total Visit Minutes 21 Notes Spouse present for caregiver training Number of PLANT CONTROL AIDE Visits 1 Physical Therapy Visit Comments Patient Comments Pt found resting in bed, spouse present, agreeable to PT. Therapy Pain Assessment Pain When Pain Assessed During Mobility Pain Present Pain Present Pain Reported M4 PT-IP Mobility and Gait Start: 02/15/23 16:01 Freq: NEEDED Status: Active Protocol: Document 02/16/23 09:18 TS (Rec: 02/16/23 09:34 TS [id number]) PT-Bed Mobility Assessment Rolling Type of Rolling Log Rolling Level of Assist Standby Assistance Supine to Sit Supine to Sit Standby Assistance,Bedrails Scooting Scooting to Edge of Bed Standby Assistance PT-Transfer Assessment Sit to and From Stand Sit to and from Stand Contact Guard Assistance,1 Person Assistance,Use of Upper Extremities Equipment Transfer Assistive Device Gait Belt,Front Wheeled Walker Orthotic/Prosthetic Devices or Brace: No Comments Mobility Comments Pt recalled 3/3 spinal precautions prior to mobility. She is SBA for logroll to R side, demonstrated good awareness of precautions and carryover of sequencing. Supine to sit SBA from flat bed with use of BUE support. Spouse was instructed in and performed donning of gait belt and handplacement on belt for mobility. Sit to stand from bed with FWW CGA, pt demonstrates good standing balance. She ambulated ~200' SBA with step thru gait and good management of FWW. She performed stairs x9 SBA step to step and step over step with B handrails, had no LOB or buckling of LEs. Pt ambulated back to room, sat in chair, all needs were met, RN was notified. Gait Assessment Gait Gait Assistance Required: Standby Assistance Distance (Feet) 200 Assistive Devices Assistive Device Gait Belt,Front Wheeled Walker Orthotic/Prosthetic Devices or Brace: No Factors Limiting Gait Function Factors Limiting Gait Function Decreased Activity Tolerance, Pain Comments Gait Comments See mobility comments Stair Climbing Assessment Evaluation Level of Assist On Stairs Standby Assistance Devices Stair Climbing Assistive Devices Left Railing,Right Railing Technique/Endurance Stair Climbing Direction Ascend and Descend Stair Climbing Technique Step Over Step,Step to Step Number of Steps Climbed 9 PT-Balance Assessment Sitting Balance and Reactions Static Sitting Balance Ability Good Dynamic Sitting Balance Ability Fair Standing Balance and Reactions Static Standing Balance Ability Good Dynamic Standing Balance Ability Fair Device Used FWW M5 PT-IP Objective Assessments Start: 02/15/23 16:01 Freq: NEEDED Status: Active Protocol: Document 02/15/23 14:55 AB (Rec: 02/15/23 16:14 AB [id number]) Orientation Orientation/Cognition Level of Alertness Alert Orientation Name,Place,Situation Safety Awareness Decreased Safety Awareness Memory Description Short Term Impaired Gross Range of Motion Lower Extremity ROM Assessment Within Functional Limits Strength Lower Extremity Strength Assessment Within Functional Limits Comments Strength Comments (+) R knee crepitus and tightness Sensation Assessment Sensation Gross Sensation WNL Muscle Tone Muscle Tone WNL Yes M6 PT-IP Treatment Start: 02/15/23 16:01 Freq: NEEDED Status: Active Protocol: Document 02/16/23 09:18 TS (Rec: 02/16/23 09:34 TS [id number]) Physical Therapy Treatment Education Education Provided Precautions,Weight Bearing Status,Post-Op Packet,Safety M7 PT-IP Assessment and Plan Start: 02/15/23 16:01 Freq: NEEDED Status: Active Protocol: Document 02/16/23 09:18 TS (Rec: 02/16/23 09:34 TS [id number]) PT Summary Assessment and Plan Potential Rehabilitation Potential Fair Summary Impairments Pain,ROM,Strength,Balance, Coordination,Sensation,Tone, Cognition,Bed Mobility, Transfers,Gait,Activity Tolerance Progress Towards Goals Progressing Toward Goals Assessment Summary Harleen is making good progress with her mobility. She is SBA for all bed mobiltiy with good awareness of her precautions. She progressed her gait to ~ 200'SBA with step thru gait. She performed stairs x9 SBA with B handrails, had no buckling or LOB. PT is recommending home with assist. Goals Bed Mobility Goal Independent Transfer Goal Independent,Front Wheeled Walker Gait Goal Independent,Front Wheel Walker Gait Distance 200 Other Goals improve transfers and ambulation usign LRAD SBA ~ 300 ft up/down 15 steps R rail ascending SBA Days to Meet Goals 10 Frequency of Treatment Frequency Of Treatment Twice a Day Treatment Plan Physical Therapy Treatment Plan Bed Mobility Training,Transfer Training,Gait Training, Therapeutic Exercise,Balance Retraining,Post Op Education, Discharge Planning,Hot or Cold Pack,Neuromuscular Re-ed, Coordination Retraining,Manual Therapy Precautions Lumbar Precautions Log Roll,No Twisting,Limit Bending,Lifting Restriction of 10 lbs,Gait Belt above Incisional Area Recommendations To Nursing Amount of Assist Needed Standby Assistance Discharge Recommendations PT Discharge Recommendations Home with Assistance Transportation Needs at Discharge Private Vehicle
--- NOTE | 2023-02-16 09:13 | OT.IP.EVAL ---
Current Diagnoses Spondylolisthesis, lumbosacral region (02/15/23) Other spondylosis with radiculopathy, lumbar region (02/15/23) Surgery Performed Operation Date: 02/15/23 08:45 Actual Procedures p L5-S1 TLIF - Milton Matt MD Past Medical History (Last Updated 02/07/23 @ 13:10 by Kimberley Marquez, RN) Anterolisthesis of lumbar spine Chronic lower back pain Counseling regarding advanced care planning and goals of care Depression Elevated LFTs Fallen arch Family history of malignant hyperthermia Foot pain (~1987) Hip pain (~2016) Hyperlipidemia Hypertension Hypothyroidism (~2013) Pars defect Presence of orthotic device Rosacea Tinnitus (~2005) Surgical History (Last Updated 02/07/23 @ 13:26 by Kimberley Marquez RN) Anesthesia Hx of colonoscopy (09/13/19) Uterine polyp (~2014) Occupational Therapy Inpatient Evaluation/Re-Eval M1 PT/OT-IP Prior Functional Status Start: 02/16/23 09:52 Freq: NEEDED Status: Active Protocol: Document 02/16/23 09:52 [facility] (Rec: 02/16/23 10:18 [facility] [id number]) Medical Review Prior Functional Status Medical History Reviewed Yes Communication able to make needs known Mobility and Gait pt stated that she was independent with all mobilities and ambulation without AD Activities of Daily Living and IADL's Pt states needing increased time for ADL and IADL needs due to her pain. Social History Household Members spouse Living Arrangements House Number of Floors (Floors) Two Floors Number of Stairs To Enter/Railing? 5 steps wide bilateral rails and can only hold on to one rail at a time to enter the house has 15 steps R rail ascending to get to bedroom level Home Environment Standard Height Toilet,Walk in Shower,Built-In Shower Seat Home Equipment Front Wheel Walker,Four Wheel Walker,Straight Cane,Raised Toilet Seat w/Armrests,Shower Seat with Backrest,Hand Held Shower,Chief Sustainability Officer,Sock Aid Additional Social History Comment Pt has a supportive to assist her at home. M2 OT-IP Current Condition Start: 02/16/23 09:52 Freq: Status: Active Protocol: Document 02/16/23 09:52 [facility] (Rec: 02/16/23 10:18 [facility] [id number]) Occupational Therapy Current Condition Current Condition Evaluation Date 02/16/23 Treatment Diagnosis S/P L5-S1 TLIF Diagnosis Onset Date 02/15/23 Post Operative Precautions Lumbar Precautions Log Roll,No Twisting,Limit Bending,Lifting Restriction of 10 lbs,Gait Belt above Incisional Area M3 OT- IP Subjective and Pain Start: 02/16/23 09:52 Freq: Status: Active Protocol: Document 02/16/23 09:52 [facility] (Rec: 02/16/23 10:18 [facility] [id number]) OT- Subjective Occupational Therapy Visit Type Type Initial Evaluation Visit Start Time 09:13 Visit Stop Time 09:52 Total Visit Minutes 39 Occupational Therapy Visit Comments Patient Comments Pt not wanting to shower but agreed to get dressed. Patient/Caregiver Goals TO go home. OT Pain Assessment Pain When Pain Assessed During Mobility Pain Present Pain Present Pain Reported M4 OT- IP ADL's Start: 02/16/23 09:52 Freq: Status: Active Protocol: Document 02/16/23 09:52 [facility] (Rec: 02/16/23 10:18 [facility] [id number]) OT SCX-Mmpn-Tbclrgw General Evaluation Self-Feeding Ability Independent OT ADL-Grooming General Evaluation Grooming Ability Independent OT ADL-Oral Care General Eval Oral Care Ability Independent Comments Oral Care Comments Educated pt to best spit into a cup or hinge at her hips to best follow her back precautions. OT ADL-Dressing General Eval Upper Body Dressing Ability Independent Lower Body Dressing Ability Standby Assistance,Moderate Assistance Comments OT Dressing Comments Pt able to practice use of middle school math teacher to yanet clothing over her feet. OT ADL-Toileting General Evaluation Toileting Ability Standby Assistance Comments OT Toileting Comments Pt having to stand to wipe to be able to best do her hygiene needs for her back precautions and use of wet wipes. Suggested for pt to has a BSC and wear pads at night. Pt states bathrooms are close by and not wanting a BSC. Comments OT Bathing Comments Pt states to shower at home. Educated pt on covering the bandage with plastic while showering. Nurse states to change the dressing later. M5 OT- IP IADL's Start: 02/16/23 09:52 Freq: Status: Active Protocol: Document 02/16/23 09:52 [facility] (Rec: 02/16/23 10:18 [facility] [id number]) OT-Instrumental Activities of Daily Living Deficits IADL Deficits Identified Deficits Home Safety Awareness Awareness of Need for Assistance at Home Good Awareness Ability to Problem Solve Emergency Able to Problem Solve Situations Meal Preparation Meal Preparation Caregiver Provides Assist Inventory Checker Inventory Checker Caregiver Provides Assist M6 OT- IP Functional Cognition Start: 02/16/23 09:52 Freq: Status: Active Protocol: Document 02/16/23 09:52 [facility] (Rec: 02/16/23 10:18 [facility] [id number]) Cognitive Factors Limiting Selfcare Function Cognitive Ability Level of Alertness Alert Patient Orientation Name,Place,Situation Attention Span Ability Capable of Focused Attention, Capable of Sustained Attention Ability to Follow Commands Able to Follow One Step Commands Memory Description No Deficits Noted Safety Awareness Decreased Ability to Apply Precautions Cognitive Comments Cognitive Assessment Comments Pt vc for follow and incorporate her back precautions. Pt vc to be sure not to grab the FWW to stand and push up from surfaces. OT- Vision and Hearing OT- Hearing Assessment OT- Hearing Assessment WFL M7 OT- IP Mobility and Balance Start: 02/16/23 09:52 Freq: Status: Active Protocol: Document 02/16/23 09:52 [facility] (Rec: 02/16/23 10:18 [facility] [id number]) OT-Transfer Assessment Sit to and From Stand Sit to and from Stand Standby Assistance Transfers Transfer Ability Standby Assistance Technique Transfer Destination Chair,Toilet Devices Transfer Assistive Devices Gait Belt,Front Wheeled Walker OT- Balance Assessment Sitting Balance and Reactions Static Sitting Balance Ability Good Dynamic Sitting Balance Ability Good Standing Balance and Reactions Static Standing Balance Ability Good Dynamic Standing Balance Ability Fair M9 OT- IP Assessment and Plan Start: 02/16/23 09:52 Freq: Status: Active Protocol: Document 02/16/23 09:52 [facility] (Rec: 02/16/23 10:18 [facility] [id number]) OT Summary Assessment and Plan Potential Rehabilitation Potential Good Analytic Complexity at Evaluation Low Summary OT Impairments Pain,Functional Mobility, Dressing,Toileting,Bathing, Toilet Transfers,Shower Transfers Progress Towards Goals Progressing Toward Goals Assessment Summary Pt Low complexity and main barriers are pain and will need assist for LB dressing, toileting, and showering needs . Pt has a very supportive to assist her at home. Goals Dressing Goal Independent,Chief Sustainability Officer,Sock Aid Toileting Goal Independent Bathing Goal Standby Assistance Toilet Transfer Goal Independent Shower Transfer Goal Independent Days to Meet Goals 5 Frequency of Treatment Frequency Of Treatment Once a Day Treatment Plan OT Treatment Plan ADL Training,Functional Mobility,Patient/Family Education,Discharge Planning Discharge Recommendations OT Discharge Recommendations Home with Assistance Transportation Needs at Discharge Private Vehicle
--- NOTE | 2023-02-16 09:23 | CM.DANOTE ---
Reviewed EMR and met with PT to discuss pt's medical status and anticipated d/c needs. Met with pt/spouse bedside to introduce self and role. Pt/spouse live independently in their own home in [place], spouse will transport pt home and provide ongoing cg assistance. Payor: [employer] Advantage Attending: Dr. Matt Pt is a 72 year-old F placed in an OBS bed following her TLIF surgery, completed yesterday with Dr. Matt. Pt has a hx of chronic, worsening back pain and R-hip pain since June. Pt's pain has affected her ability to stand or walk, as well as other activities of daily living. Pt was found today to be sitting upright and preparing for d/c. No OP PT is recommended for the next 6-weeks, pt will f/u with Ortho in 2-weeks post-op. Pt and spouse state that they have all DME in the home and are well prepared for her return. No further DCP needs are identified at this time. Discharge Planning/Care Management CM Discharge Assessment Start: 02/16/23 09:21 Freq: Status: Active Protocol: Document 02/16/23 09:21 [facility] (Rec: 02/16/23 09:23 [facility] [id number]) Discharge Planning Assessment Assigned Therapeutic Sales Specialist AVINASH Price Advance Directives? Yes Advance Directives on File Yes History Provided By Patient,Significant Other, Medical Record Has Patient been admitted in last 30 No days? Prior Living Arrangements House Household Members spouse Type of transporation used prior to Drives own vehicle admit Independent with ADL's Yes Is patient alert and oriented? Yes Caregiver for Another No DME Already Rented / Owned Bath Bench,Elevated Toilet Seat,FWW / Walker Comment No anticipated home d/c needs identified at this time. Barriers to Discharge No Discharge Plan Home Community Services Physical Therapy Transportation Arrangement Spouse Referrals Initiated None needed Whiteboard Updated in Patient Room with Yes name and ext. # of Therapeutic Sales Specialist Review Status In Process Please Provide Date Initial DC 02/16/23 Assessment Was Performed Pre-Anesthesia Assessment Start: 02/07/23 12:54 Freq: Status: Complete Protocol: Document 02/07/23 12:54 [facility] (Rec: 02/07/23 13:43 [facility] [id number]) Pre-Anesthesia Assessment PAC Comment Pt will be s/p Hysteroscopy, D &C 02/10/23 Patient Information Reviewed Via Phone Assessment Assessment Completed With Patient Diagnostic Results BMP/CMP,CBC,EKG Comment Labs/EKG @ [facility] 01/24/23 Primary Care Provider Joanne Cartagena Seen Specialist in Last 12 Months Yes Specialist Seen Orthopedist Primary Language Albanian Preferred Language Albanian Traffic Analysis Technician Required No Height 167.64 cm Weight 99.337 kg Body Mass Index (BMI) 35.3 Hearing Ability Normal Visual Assist Glasses Dentition Type Teeth, Natural Present,Teeth, Missing Barriers to Learning None Hx Anesthesia Reactions No Hx Family Anesthesia Reaction Yes: nephew has hx of malignant hyperthermia Hx Malignant Hyperthermia No Hx Blood Transfusions No Hx Blood Transfusion Reaction No Anesthesia Review Requested Yes: Reviewed fam hx of MH, they request pt be 1st case of the day Hydro Plant Site 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 No Does patient have VALENTE/SOB No Hx Sleep Apnea No Currently Taking a Beta Venkata No Hx Chest Pain No Hx SOB No Hx Syncope or Dizziness No Anti-Coagulant Therapy No Has a Centrifugal Separator No Cardiac Testing No Hx Pacemaker/ICD No Pacemaker Rep Required? No Cardiac Clearance Received Not Applicable Diet Type At Home Regular Dysphagia No Gastrointestinal Symptoms None Chronic UTI No Urinary Catheter Present No Hx Urinary Self Catheterization No Diabetes No HgbA1C 6.0 Date 01/24/23 Patient No Lactating No Presence of External or Internal Medical No Devices Received a COVID vaccine? Yes Received all doses? Yes Marital Status Lives With spouse Current Living Arrangements House Number of Floors (Floors) Two Floors Support System Spouse Does the Patient Have Assistance After Yes Surgery Patient Discharge Plan Description Return Home Comment Pt advised possible same day surgery per surgeon Feels Safe in Current Environment Yes Been Physically Hurt or Threatened By a No Person in Current Environment Do you have thoughts of harming yourself None or others? Are you currently considering suicide? No Do you have a plan to hurt yourself or No Plan others? Do You Have Any Spiritual Beliefs That No May Affect Your HC Choices? Do You Have Any Cultural Practices That No May Affect Your HC Choices? Who Can We Speak to About Patient's Care Family, friends Identifying Code for Release of Patient Declines to issue Information Health Care Proxy/Next of Kin Min () Health Care Proxy Emergency Contact Name Min () Emergency Contact Advance Directives? Yes Advance Directives on File Yes PAC Instructions Durable medical equipment, Medications to take/avoid, Nasal antibiotic,No ETOH/ petroleum product on skin DOS, NPO,Pre-surgical wash,Sensory aids,Sturdy shoes/comfortable clothes,Do not bring valuables and remove jewelry
--- NOTE | 2023-02-16 10:30 | PC.NURSE ---
Pt discharged home at 1030, escorted off floor in wheelchair accompanied by spouse and hospital staff. IV removed, discharge teaching provided including wound care, follow up appointments and new medications. Questions answered. Patient left floor with all belongings.
== END 2023-02-16 10:30 | disposition home or self-care (01) | DRG 455 ==
PROVIDERS: Admitting Provider Orthopaedic Surgery Orthopaedic Surgery of the Spine; Family Provider Nurse Practitioner; PCP Nurse Practitioner; Referring Provider Orthopaedic Surgery Orthopaedic Surgery of the Spine; Visit Provider Orthopaedic Surgery Orthopaedic Surgery of the Spine
PROC: 0SG30AJ Fusion of Lumbosacral Joint with Interbody Fusion Device, Posterior Approach, Anterior Column, Open Approach (ICD-10-PCS; principal; 2023-02-15 08:45)
DX: M43.17 Spondylolisthesis, lumbosacral region (principal); M48.07 Spinal stenosis, lumbosacral region; M54.17 Radiculopathy, lumbosacral region; E03.9 Hypothyroidism, unspecified; E78.5 Hyperlipidemia, unspecified; I10 Essential (primary) hypertension
CPT/HCPCS: 72100; 76000; 97162; 97165; 97530; 97535; C1713; C9290; J0171; J0690; J1100; J1170; J2250; J2704; J3010; J3410

== ENCOUNTER → 2023-04-29 08:48 | Outpatient (CLI) | payer OTHER, SELFPAY ==
[2023-03-13 15:00] VITALS: BMI 35.3
--- NOTE | 2023-04-29 | DI.MG.S_ITS ---
BILATERAL DIGITAL SCREENING MAMMOGRAM 3D/2D WITH CAD: 04/29/2023 CLINICAL: Routine screening. Comparison is made to exams dated: 02/02/2022 mammogram, 01/15/2021 mammogram, and 11/27/2019 mammogram - [facility]. There are scattered areas of fibroglandular density in both breasts (category b / 25%-50% glandular tissue). Current study was also evaluated with a Computer Aided Detection (CAD) system. There are benign calcifications in both breasts. No significant masses, calcifications, or other findings are seen in either breast. There has been no significant interval change. IMPRESSION: BENIGN There is no mammographic evidence of malignancy. A 1 year screening mammogram is recommended. Based on the Tyrer Cuzick model (a risk assessment model) the patient's lifetime risk is 5.2% and her 10 year risk is 4.3%. According to the ACR, ACS, and NCCN guidelines, an annual breast MRI exam along with mammogram is recommended if the patient's lifetime risk is 20% or greater. This exam was interpreted at Station ID: [id number]. NOTE: For mammograms, a report in lay terms will be sent to the patient. Approximately 15% of breast malignancies will not be visualized mammographically. In the management of a palpable breast mass, a negative mammogram must not discourage biopsy of a clinically suspicious lesion. Electronically Signed By: Tatianna myers/eh:05/01/2023 08:34:49 letter sent: Normal Exam ACR BI-RADS Category 2: Benign Finding(s) [id number]
== END ==
PROVIDERS: Family Provider Nurse Practitioner; PCP Nurse Practitioner; Referring Provider Nurse Practitioner; Visit Provider Nurse Practitioner
DX: Z12.31 Encounter for screening mammogram for malignant neoplasm of breast (principal); R92.323 Mammographic fibroglandular density, bilateral breasts
CPT/HCPCS: 77063; 77067

== ENCOUNTER 2023-07-13 15:15 | Outpatient (RCR) | payer MEDICARE, SELFPAY ==
[2023-03-13 15:00] VITALS: BMI 35.3
--- NOTE | 2023-05-02 12:30 | PT.OIE ---
Current Diagnoses Pain in right hip (05/02/23) Stiffness of unspecified hip, not elsewhere classified (05/02/23) Other specified joint disorders, unspecified hip (05/02/23) Spondylolisthesis, lumbosacral region (05/02/23) Spinal stenosis, lumbar region without neurogenic claudication (05/02/23) Past Medical History (Last Updated 04/01/23 @ 09:53 by DALE Jimenez) Anterolisthesis of lumbar spine Chronic lower back pain Class 2 obesity due to excess calories in adult Counseling regarding advanced care planning and goals of care Depression Elevated LFTs [place] Family history of malignant hyperthermia Foot pain (~1987) Hip pain (~2016) Hyperlipidemia Hypertension Hypothyroidism (~2013) Pars defect Presence of orthotic device Rosacea Tinnitus (~2005) Past Surgical History (Last Updated 03/30/23 @ 15:43 by DALE Jimenez) Anesthesia History of back surgery Hx of colonoscopy (09/13/19) Uterine polyp (~2014) Visit Care Team Role Provider Type DALE Jimenez Family Provider Advanced Cook Pressure Primary Care Provider Specialty: Family Practice Address: [address] [place] [address], [facility] Email: [email or web address] Milton Matt MD Attending Provider Physician Referring Provider Specialty: Orthopedics Orthopedic Surgery Address: [address] [place] [address], [id number] Email: [email or web address] Initial Evaluation PT-OP-A Visit Information Start: 05/02/23 08:14 Freq: Status: Active Protocol: Document 05/02/23 11:15 [facility] (Rec: 05/02/23 13:50 [facility] [id number]) Out-Patient Physical Therapy Visit Information Visit Information Visit Type Initial Evaluation Visit Start Time 11:15 Visit Stop Time 12:00 Visit Number 1 Evaluation Information Evaluation Date 05/02/23 Precautions Precautions pt is still under her lumbar fusion precautions of no lifting, bending, or twisting PT-OP-B Current Condition Start: 05/02/23 08:14 Freq: Status: Active Protocol: Document 05/02/23 11:15 [facility] (Rec: 05/02/23 10:10 [facility] [id number]) Current Condition History of Current Condition Onset Date 02/15/23 Current Complaints Right sided anterior hip pain History of Current Condition 72 year old female s/p L5-S1 postero-lateral and posterior interbody fusion on 02/15/23, pt had a follow up appt with her doctor and she was given the go ahead to get back in the pool so that has felt good to her. She reports her complaints prior to surgery were of right sided anterior hip pain. Harleen notes she has a collapsed right arch which has caused a lot of pain on and off over the years. Last spring her right hip started hurting constantly and she was limping . She had hip xrays taken and a MRI of her spine. Harleen reports she was advised to have a fusion due to the nerve damage in her spine was causing the hip pain and radicular sx She notes she wasn't having back pain at the time but was experiencing some radicular symptoms into her anterior right thigh. Since the surgery her right hip pain has not changed. She did feel that resting it helped her but once she has gotten back to walking she is feeling the anterior pain again. She notes she is not limping as much but she feels very weak since surgery. She finds her hips roll out into ER with sleeping and she will wake up with anterior/groin pain in the am. Her radiating nerve pain has decreased overall since surgery. She does have a walker but she is walking on her own in the house. She comes into PT today without a walker or cane. She reports feeling very tight in her right hip as compared to her left. She is able to go up and down the stairs in her house leading with her left leg. She has another follow up with Dr. Matt next week Prior Treatments and Tests Xray taken in August of 2022 shows bilateral hip arthritis most severe on the right Treatment Goals Patient/Caregiver Goals Harleen would like to improve her walking ability and walk without hip pain. She would like to improve overall core and hip strength Prior Functional Status Baseline Function- ADL's Needs Assist Baseline Function- Mobility Needs Assist Baseline Function- Gait pt had right sided hip pain with gait prior to surgery Current Functional Impairments (Reported) Functional Limitations- ADL's limited in ADL's that require bending and lifting and twisting due to fusion precautions Functional Limitations- Mobility/Gait pt is currently limited to standing and ambulating of 10 min or less PT-OP-C Subjective Start: 05/02/23 08:14 Freq: Status: Active Protocol: Document 05/02/23 11:15 [facility] (Rec: 05/02/23 14:05 [facility] [id number]) Patient Questionnaires Oswestry Low Back Index Oswestry Score 26 Oswestry Impairment 20 to 39% Impaired (Score 20- 39) OP-PT Pain Assessment Location right anterior hip Pain Location Details worse with walking Intensity 4 Scale Used Numeric (0 - 10) Description Aching,Pressure,Tightness,With Movement Frequency Intermittent Pain Duration walking and when she wakes up in the am Radiating Location pain in the anterior hip and quad Pain Aggravating Factors Standing,Walking,Stair Climbing PT-OP-G Mobility & Gait Start: 05/02/23 14:11 Freq: Status: Active Protocol: Document 05/02/23 11:15 [facility] (Rec: 05/02/23 14:14 [facility] [id number]) OP Mobility Evaluation Bed Mobility Rolling pt demonstrates log rolling technique for transfers in and out of bed Ind Supine to and from Sit Ind Transfers Sit to Stand uses hands with sit-stand OP Gait Assessment Gait Gait Assistance Required: Standby Assistance Distance (Feet) 300 Able to Maintain Weight Bearing Status Yes During Gait Factors Limiting Gait Function Factors Limiting Gait Function Decreased Strength,Limited Range of Motion,Pain Comments Gait Comments Harleen has a walker for community ambulation however she did not have it with her today. She also has walking sticks that she uses. Harleen ambulates with the right LE ER , she lacks heel strike for push of and presents with a small amount of toe drag which causes her to lose her balance. PT-OP-K Range of Motion Start: 05/02/23 08:14 Freq: Status: Active Protocol: Document 05/02/23 11:15 [facility] (Rec: 05/02/23 14:25 [facility] [id number]) Hip Goniometric Range of Motion Hip right Hip ROM WFL No Testing Position Supine Flexion w/Knee Flexed 100 Straight Leg Raise 45 Extension 0 Abduction 15 Internal Rotation 5 External Rotation 20 Comments pt lacks hip extension and is tight in the iliopsoas and quads on the right, she has pain in the anterior hip with hip flexion, IR is very limited Hip ROM Limitations Hip ROM Limitations Soft Tissue Tightness,Bony Restriction,Pain Ankle and Foot Goniometric Range of Motion Ankle and Foot Right Ankle/Foot ROM WFL No Testing Position Supine Dorsiflexion with Knee Extended 4 Ankle and Foot ROM Limitations ROM Limitations Soft Tissue Tightness,Muscle Weakness Comments pt presents with tightness in the calf musculature limiting ankle DF as well as decreased strength of Tibialis anterior on the right PT-OP-M Strength Start: 05/02/23 14:11 Freq: Status: Active Protocol: Document 05/02/23 11:15 [facility] (Rec: 05/02/23 14:25 [facility] [id number]) Hip Strength Hip Manual Muscle Testing Right Flexion (L2) 3 Fair Extension (S1) 3 Fair Abduction 3 Fair External Rotation 3 Fair Comments pain with resisted ER and hip flexion on the right Ankle/Foot Strength Ankle and Foot Manual Muscle Testing Right Dorsiflexion (L4) 3+ Fair+ Plantarflexion (S1) 4 Good PT-OP-Q Treatments Start: 05/02/23 08:14 Freq: Status: Active Protocol: Document 05/02/23 11:15 [facility] (Rec: 05/02/23 14:11 [facility] [id number]) Therapeutic Exercises Supine Exercises ankle pumps Reps/Minutes x 20 2-3 times per day hooklying clam shell with resistance Equipment Used level 2 theraband Reps/Minutes 3 x 10 reps TA with pelvic tilt Reps/Minutes x 10 reps TA bracing in supine Reps/Minutes x 10 reps holding 5 sec single knee to chest stretch Reps/Minutes 2 xms each side holding 30 sec + Comments 1st time opp knee is bent, 2nd time straighten due to tightness initially PT-OP-T Assessment and Plan Start: 05/02/23 08:14 Freq: Status: Active Protocol: Document 05/02/23 11:15 [facility] (Rec: 05/02/23 14:28 [facility] [id number]) Physical Therapy Assessment Goals Modified oswestry low back pain disability questionaire Impairment pt scores 26 on the modified oswestry questionnaire Interlocker Goal (LTG) Harleen is able to improve her score to 20% or better LTG Duration 12 weeks gait Impairment Harleen is limited to 10 min of standing and gait at this time due to increased right sided hip pain Snf Goal (LTG) Harleen is able to increase her standing time to 20 min and is able to increase her walking distance to 1/2 mile or more LTG Duration 8 weeks weakness Impairment Harleen presents with weakness of the right tibialis anterior and hip and musculature Short Term Goal (STG) Harleen is educated on a home strengthening program Interlocker Goal (LTG) Harleen demonstrates improved strength of the tibialis anterior and hip abduction/ER on the Right with MMT LTG Duration 8 Hip ROM Impairment Pt with limited R hip mobility secondary to pain. She is limited to 100 degrees hip flexion Short Term Goal (STG) Harleen is educated on a home stretching program for her hips STG Duration 4 weeks Interlocker Goal (LTG) pt has improved hip mobility into hip extension and is able to improve hip flexion to 110 degrees in supine Assessment Summary Assessment 72 year old female referred to PT s/p L5-S1 posterior- lateral and posterior interbody fusion on 02/15/23 due to right sided complaints of anterior hip pain and radicular symptoms. She reports since her surgery she is not experiencing the radicular symptoms. With rest her hip did feel better but as she is starting to be more active the anterior hip pain on the right side is returning . She denies any complaints of back pain a this time and rates her right sided anterior hip pain as 4/10. She is limited with activities such as standing and walking to 10 min. Harleen was cleared for the pool and she has been gently moving in the pool and this has felt good for her. Harleen has both a fww and walking sticks that she uses out walking. She reports she has been trying to wean herself off her fww. She presents to PT today without a assistive device. With exam today Harleen presents with antalgic gait pattern with right LE in ER and decreased heel strike with gait. I did advise she continue to use at least her walking sticks at this time for community ambulation. Harleen has decreased ankle ROM into DF on the right as well as 4/5 MMT for R ankle DF. She is limited in her hip mobility to 100 degrees flexion with reproduction of pain. Hip ER and IR also reproduce pain. Her hip flexors are guarded and tight on the right limiting her hip extension. She is weak throughout her core and hip stabilizers. Harleen is aware of her precautions s/p surgery and is avoiding bending, twisting, and lifting. Harleen is a good candidate for PT working on stability exercises , gait and balance training, and stretches for her hips. Physical Therapy Plan Frequency and Duration Frequency of Treatment 2x/Week Duration of treatment (weeks) 8 Plan of Care Start Date 05/02/23 Plan of Care End Date 06/27/23 Therapeutic Interventions Therapeutic Interventions Balance Training,Gait Training ,Home Exercise Program,Manual Therapy,Neuromuscular Re- education,Patient/Caregiver Education,Self-Care/Home Management,Therapeutic Exercises Next Visit Focus/Plan Next Note Type Treatment Note Next Visit Plan review exercises given today, begin gait training working on heel strike and strengthening for improved DF strength on the right foot. Work on core stability and hip strengthening
--- NOTE | 2023-05-02 12:33 | PT.OPPOC ---
Physical, Occupational & Speech Therapy At [facility] Current Diagnoses Pain in right hip (05/02/23) Stiffness of unspecified hip, not elsewhere classified (05/02/23) Other specified joint disorders, unspecified hip (05/02/23) Spondylolisthesis, lumbosacral region (05/02/23) Spinal stenosis, lumbar region without neurogenic claudication (05/02/23) Visit Care Team Role Provider Type DALE Jimenez Family Provider Advanced Insulation Batting Machine Operator Primary Care Provider Specialty: Family Practice Address: [address] [place] [address], [id number] Email: [email or web address] Milton Matt MD Attending Provider Physician Referring Provider Specialty: Orthopedics Orthopedic Surgery Address: [address] [place] [address], [id number] Email: [email or web address] Plan Of Care PT-OP-T Assessment and Plan Start: 05/02/23 08:14 Freq: Status: Active Protocol: Document 05/02/23 11:15 [facility] (Rec: 05/02/23 14:28 [facility] [id number]) Physical Therapy Assessment Goals Modified oswestry low back pain disability questionaire Impairment pt scores 26 on the modified oswestry questionnaire Electrician Supervisor Goal (LTG) Harleen is able to improve her score to 20% or better LTG Duration 12 weeks gait Impairment Harleen is limited to 10 min of standing and gait at this time due to increased right sided hip pain Electrician Supervisor Goal (LTG) Harleen is able to increase her standing time to 20 min and is able to increase her walking distance to 1/2 mile or more LTG Duration 8 weeks weakness Impairment Harleen presents with weakness of the right tibialis anterior and hip and musculature Short Term Goal (STG) Harleen is educated on a home strengthening program Electrician Supervisor Goal (LTG) Harleen demonstrates improved strength of the tibialis anterior and hip abduction/ER on the Right with MMT LTG Duration 8 Hip ROM Impairment Pt with limited R hip mobility secondary to pain. She is limited to 100 degrees hip flexion Short Term Goal (STG) Harleen is educated on a home stretching program for her hips STG Duration 4 weeks Longterm Goal (LTG) pt has improved hip mobility into hip extension and is able to improve hip flexion to 110 degrees in supine Assessment Summary Assessment 72 year old female referred to PT s/p L5-S1 posterior- lateral and posterior interbody fusion on 02/15/23 due to right sided complaints of anterior hip pain and radicular symptoms. She reports since her surgery she is not experiencing the radicular symptoms. With rest her hip did feel better but as she is starting to be more active the anterior hip pain on the right side is returning . She denies any complaints of back pain a this time and rates her right sided anterior hip pain as 4/10. She is limited with activities such as standing and walking to 10 min. Harleen was cleared for the pool and she has been gently moving in the pool and this has felt good for her. Harleen has both a fww and walking sticks that she uses out walking. She reports she has been trying to wean herself off her fww. She presents to PT today without a assistive device. With exam today Harleen presents with antalgic gait pattern with right LE in ER and decreased heel strike with gait. I did advise she continue to use at least her walking sticks at this time for community ambulation. Harleen has decreased ankle ROM into DF on the right as well as 4/5 MMT for R ankle DF. She is limited in her hip mobility to 100 degrees flexion with reproduction of pain. Hip ER and IR also reproduce pain. Her hip flexors are guarded and tight on the right limiting her hip extension. She is weak throughout her core and hip stabilizers. Harleen is aware of her precautions s/p surgery and is avoiding bending, twisting, and lifting. Harleen is a good candidate for PT working on stability exericses , gait and balance training, and stretches for her hips. Physical Therapy Plan Frequency and Duration Frequency of Treatment 2x/Week Duration of treatment (weeks) 8 Plan of Care Start Date 05/02/23 Plan of Care End Date 06/27/23 Therapeutic Interventions Therapeutic Interventions Balance Training,Gait Training ,Home Exercise Program,Manual Therapy,Neuromuscular Re- education,Patient/Caregiver Education,Self-Care/Home Management,Therapeutic Exercises Next Visit Focus/Plan Next Note Type Treatment Note Next Visit Plan review exercises given today, begin gait training working on heel strike and strengthening for improved DF strength on the right foot. Work on core stability and hip strengthening Plan of Care Dates Plan of Care Start Date 05/02/23 Plan of Care End Date 06/27/23 Electronically Signed by: Christiane Boateng, PT 05/03/23 1850 If you are in agreement with this Plan of Care, please return a signed and dated copy. I have reviewed this Plan of Care and certify that the skilled therapy services above are required to meet the patient?s needs. Physician Signature Date Printed Name and Credentials Clinical Instructor Signature Printed Name and Credentials
--- NOTE | 2023-05-05 11:37 | PT.OTN ---
Current Diagnoses Pain in right hip (05/05/23) Stiffness of unspecified hip, not elsewhere classified (05/05/23) Other specified joint disorders, unspecified hip (05/05/23) Spondylolisthesis, lumbosacral region (05/05/23) Spinal stenosis, lumbar region without neurogenic claudication (05/05/23) Physical Therapy Treatment Note PT-OP-A Visit Information Start: 05/02/23 08:14 Freq: Status: Active Protocol: Document 05/05/23 09:37 AB (Rec: 05/05/23 11:37 AB [id number]) Out-Patient Physical Therapy Visit Information Visit Information Visit Type Treatment Note Visit Note Access Code: [email or web address] Visit Start Time 10:33 Visit Stop Time 11:19 Visit Number 2 Number of COTTON BUYER Visits 1 Evaluation Information Evaluation Date 05/02/23 Precautions Precautions pt is still under her lumbar fusion precautions of no lifting, bending, or twisting PT-OP-B Current Condition Start: 05/02/23 08:14 Freq: Status: Active Protocol: Document 05/02/23 11:15 [facility] (Rec: 05/02/23 10:10 [facility] [id number]) Current Condition History of Current Condition Onset Date 02/15/23 Current Complaints Right sided anterior hip pain History of Current Condition 72 year old female s/p L5-S1 postero-lateral and posterior interbody fusion on 02/15/23, pt had a follow up appt with her doctor and she was given the go ahead to get back in the pool so that has felt good to her. She reports her complaints prior to surgery were of right sided anterior hip pain. Harleen notes she has a collapsed right arch which has caused a lot of pain on and off over the years. Last spring her right hip started hurting constantly and she was limping . She had hip xrays taken and a MRI of her spine and saw Dr Lena Canseco reports she was advised to have a fusion due to the nerve damage in her spine was causing the hip pain . She notes she wasn't having back pain at the time but was experiencing some radicular symptoms into her anterior right thigh. Since the surgery her right hip pain has not changed. She did feel that resting it helped her but once she has gotten back to walking she is feeling the anterior pain again. She notes she is not limping as much but she feels very weak since surgery. She finds her hips roll out into ER with sleeping and she will wake up with anterior/groin pain in the am. Her radiating nerve pain has decreased overall since surgery. She does have a walker but she is walking on her own in the house. She comes into PT today without a walker or cane. She reports feeling very tight in her right hip as compared to her left. She is able to go up and down the stairs in her house leading with her left leg. She has another follow up with Dr. Honeycutt next week Prior Treatments and Tests Xray taken in August of 2022 shows bilateral hip arthritis most severe on the right Treatment Goals Patient/Caregiver Goals Harleen would like to improve her walking ability and walk without hip pain. She would like to improve overall core and hip strength Prior Functional Status Baseline Function- ADL's Needs Assist Baseline Function- Mobility Needs Assist Baseline Function- Gait pt had right sided hip pain with gait prior to surgery Current Functional Impairments (Reported) Functional Limitations- ADL's limited in ADL's that require bending and lifting and twisting due to fusion precautions Functional Limitations- Mobility/Gait pt is currently limited to standing and ambulating of 10 min or less PT-OP-C Subjective Start: 05/02/23 08:14 Freq: Status: Active Protocol: Document 05/05/23 09:37 AB (Rec: 05/05/23 11:37 AB [id number]) OP-PT Subjective Patient Comments Patient Comments 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 PT-OP-G Mobility & Gait Start: 05/02/23 14:11 Freq: Status: Active Protocol: Document 05/02/23 11:15 [facility] (Rec: 05/02/23 14:14 [facility] [id number]) OP Mobility Evaluation Bed Mobility Rolling pt demonstrates log rolling technique for transfers in and out of bed Ind Supine to and from Sit Ind Transfers Sit to Stand uses hands with sit-stand OP Gait Assessment Gait Gait Assistance Required: Standby Assistance Distance (Feet) 300 Able to Maintain Weight Bearing Status Yes During Gait Factors Limiting Gait Function Factors Limiting Gait Function Decreased Strength,Limited Range of Motion,Pain Comments Gait Comments Harleen has a walker for community ambulation however she did not have it with her today. She also has walking sticks that she uses. Harleen ambulates with the right LE ER , she lacks heel strike for push of and presents with a small amount of toe drag which causes her to lose her balance. PT-OP-K Range of Motion Start: 05/02/23 08:14 Freq: Status: Active Protocol: Document 05/02/23 11:15 [facility] (Rec: 05/02/23 14:25 [facility] [id number]) Hip Goniometric Range of Motion Hip right Hip ROM WFL No Testing Position Supine Flexion w/Knee Flexed 100 Straight Leg Raise 45 Extension 0 Abduction 15 Internal Rotation 5 External Rotation 20 Comments pt lacks hip extension and is tight in the iliopsoas and quads on the right, she has pain in the anterior hip with hip flexion, IR is very limited Hip ROM Limitations Hip ROM Limitations Soft Tissue Tightness,Bony Restriction,Pain Ankle and Foot Goniometric Range of Motion Ankle and Foot Right Ankle/Foot ROM WFL No Testing Position Supine Dorsiflexion with Knee Extended 4 Ankle and Foot ROM Limitations ROM Limitations Soft Tissue Tightness,Muscle Weakness Comments pt presents with tightness in the calf musculature limiting ankle DF as well as decreased strength of Tibialis anterior on the right PT-OP-M Strength Start: 05/02/23 14:11 Freq: Status: Active Protocol: Document 05/02/23 11:15 [facility] (Rec: 05/02/23 14:25 [facility] [id number]) Hip Strength Hip Manual Muscle Testing Right Flexion (L2) 3 Fair Extension (S1) 3 Fair Abduction 3 Fair External Rotation 3 Fair Comments pain with resisted ER and hip flexion on the right Ankle/Foot Strength Ankle and Foot Manual Muscle Testing Right Dorsiflexion (L4) 3+ Fair+ Plantarflexion (S1) 4 Good PT-OP-Q Treatments Start: 05/02/23 08:14 Freq: Status: Active Protocol: Document 05/05/23 09:37 AB (Rec: 05/05/23 11:37 AB [id number]) Therapeutic Exercises Supine Exercises bent knee fall out Supine Exercise Name Very small movement Side bilateral Reps/Minutes X10 Comments VC for minimal LE movement and self tactile cues at pelvis to insure no rot hip flexor stretch Supine Exercise Name edge of bed stretch modified to on bed with left LE elevated on bolster Side right Reps/Minutes 2 min Comments verbal cues for breathing from diaphragm Sitting Exercises seated hip abduction with band Side bilateral Equipment Used level one light blue band Reps/Minutes X10 X 3 w/o hold then one one minute hold Comments Verbal cues Gait Training Gait Activity ambulation without device Device Used no device Level of Assistance no assistance Surface floor Distance/Duration 45 feet Comments Verbal cues to avoid excessive toeing out right LE and to ambulate with heel toe pattern . Manual Therapy Treatment Soft Tissue Mobilization right hip flexor at groin Mobilization Type Cross-Friction,Rolling Intensity/Depth Moderate Body Position Hooklying Comments Monitored for pain, performed prior to stretch right lumbar paraspinals Mobilization Type Sustained Pressure Intensity/Depth Superficial Body Position Sidelying Comments monitored for pain right piriformis Mobilization Type Cross-Friction,Rolling Intensity/Depth Moderate Body Position Sidelying Comments monitored for pain, performed prior to manual stretch Manual Techniques PROM right hip IR Body Location right jo Body Position Sitting Reps/Duration 60 sec X 2 and X 3 without hold Comments post manual therapy Self-Care/Home Management Treatment Activities Self-Care/Home Management Activities bent knee fall out, seated hip abduction with band and modified hip flexor stretch added to HEP PT-OP-T Assessment and Plan Start: 05/02/23 08:14 Freq: Status: Active Protocol: Document 05/05/23 09:37 AB (Rec: 05/05/23 11:37 AB [id number]) Physical Therapy Assessment Assessment Summary Assessment Harleen reports feeling looser end of session. LE muscle stiffness and weakness continues to impact functional mobility. Monitored for hip hinge and log roll throughout session, with good tech noted. Physical Therapy Plan Frequency and Duration Frequency of Treatment 2x/Week Duration of treatment (weeks) 8 Plan of Care Start Date 05/02/23 Plan of Care End Date 06/27/23 Next Visit Focus/Plan Next Visit Plan review exercises given today, begin gait training working on heel strike and strengthening for improved DF strength on the right foot( add calf stretch and AROM DF to HEP ). Work on core stability and hip strengthening (abdominal bracing with LE extension ), review clamshell with band, Hip stretching during session post manual therapy
--- NOTE | 2023-05-05 11:42 | PT.OTN ---
Addendum entered and electronically signed by Mansi Solorzano 05/08/23 14:47: duplicate Original Note: Current Diagnoses Pain in right hip (05/05/23) Stiffness of unspecified hip, not elsewhere classified (05/05/23) Other specified joint disorders, unspecified hip (05/05/23) Spondylolisthesis, lumbosacral region (05/05/23) Spinal stenosis, lumbar region without neurogenic claudication (05/05/23) Physical Therapy Treatment Note PT-OP-A Visit Information Start: 05/02/23 08:14 Freq: Status: Active Protocol: Document 05/05/23 09:37 AB (Rec: 05/05/23 11:37 AB [id number]) Out-Patient Physical Therapy Visit Information Visit Information Visit Type Treatment Note Visit Note Access Code: [email or web address] Visit Start Time 10:33 Visit Stop Time 11:19 Visit Number 2 Number of LEAD PROJECT ENGINEER Visits 1 Evaluation Information Evaluation Date 05/02/23 Precautions Precautions pt is still under her lumbar fusion precautions of no lifting, bending, or twisting PT-OP-B Current Condition Start: 05/02/23 08:14 Freq: Status: Active Protocol: Document 05/02/23 11:15 [facility] (Rec: 05/02/23 10:10 [facility] [id number]) Current Condition History of Current Condition Onset Date 02/15/23 Current Complaints Right sided anterior hip pain History of Current Condition 72 year old female s/p L5-S1 postero-lateral and posterior interbody fusion on 02/15/23, pt had a follow up appt with her doctor and she was given the go ahead to get back in the pool so that has felt good to her. She reports her complaints prior to surgery were of right sided anterior hip pain. Harleen notes she has a collapsed right arch which has caused a lot of pain on and off over the years. Last spring her right hip started hurting constantly and she was limping . She had hip xrays taken and a MRI of her spine and saw Dr Lena Honeycutt. Harleen reports she was advised to have a fusion due to the nerve damage in her spine was causing the hip pain . She notes she wasn't having back pain at the time but was experiencing some radicular symptoms into her anterior right thigh. Since the surgery her right hip pain has not changed. She did feel that resting it helped her but once she has gotten back to walking she is feeling the anterior pain again. She notes she is not limping as much but she feels very weak since surgery. She finds her hips roll out into ER with sleeping and she will wake up with anterior/groin pain in the am. Her radiating nerve pain has decreased overall since surgery. She does have a walker but she is walking on her own in the house. She comes into PT today without a walker or cane. She reports feeling very tight in her right hip as compared to her left. She is able to go up and down the stairs in her house leading with her left leg. She has another follow up with Dr. Honeycutt next week Prior Treatments and Tests Xray taken in August of 2022 shows bilateral hip arthritis most severe on the right Treatment Goals Patient/Caregiver Goals Harleen would like to improve her walking ability and walk without hip pain. She would like to improve overall core and hip strength Prior Functional Status Baseline Function- ADL's Needs Assist Baseline Function- Mobility Needs Assist Baseline Function- Gait pt had right sided hip pain with gait prior to surgery Current Functional Impairments (Reported) Functional Limitations- ADL's limited in ADL's that require bending and lifting and twisting due to fusion precautions Functional Limitations- Mobility/Gait pt is currently limited to standing and ambulating of 10 min or less PT-OP-C Subjective Start: 05/02/23 08:14 Freq: Status: Active Protocol: Document 05/05/23 09:37 AB (Rec: 05/05/23 11:37 AB [id number]) OP-PT Subjective Patient Comments Patient Comments 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 PT-OP-G Mobility & Gait Start: 05/02/23 14:11 Freq: Status: Active Protocol: Document 05/02/23 11:15 [facility] (Rec: 05/02/23 14:14 [facility] [id number]) OP Mobility Evaluation Bed Mobility Rolling pt demonstrates log rolling technique for transfers in and out of bed Ind Supine to and from Sit Ind Transfers Sit to Stand uses hands with sit-stand OP Gait Assessment Gait Gait Assistance Required: Standby Assistance Distance (Feet) 300 Able to Maintain Weight Bearing Status Yes During Gait Factors Limiting Gait Function Factors Limiting Gait Function Decreased Strength,Limited Range of Motion,Pain Comments Gait Comments Harleen has a walker for community ambulation however she did not have it with her today. She also has walking sticks that she uses. Harleen ambulates with the right LE ER , she lacks heel strike for push of and presents with a small amount of toe drag which causes her to lose her balance. PT-OP-K Range of Motion Start: 05/02/23 08:14 Freq: Status: Active Protocol: Document 05/02/23 11:15 [facility] (Rec: 05/02/23 14:25 [facility] [id number]) Hip Goniometric Range of Motion Hip right Hip ROM WFL No Testing Position Supine Flexion w/Knee Flexed 100 Straight Leg Raise 45 Extension 0 Abduction 15 Internal Rotation 5 External Rotation 20 Comments pt lacks hip extension and is tight in the iliopsoas and quads on the right, she has pain in the anterior hip with hip flexion, IR is very limited Hip ROM Limitations Hip ROM Limitations Soft Tissue Tightness,Bony Restriction,Pain Ankle and Foot Goniometric Range of Motion Ankle and Foot Right Ankle/Foot ROM WFL No Testing Position Supine Dorsiflexion with Knee Extended 4 Ankle and Foot ROM Limitations ROM Limitations Soft Tissue Tightness,Muscle Weakness Comments pt presents with tightness in the calf musculature limiting ankle DF as well as decreased strength of Tibialis anterior on the right PT-OP-M Strength Start: 05/02/23 14:11 Freq: Status: Active Protocol: Document 05/02/23 11:15 [facility] (Rec: 05/02/23 14:25 [facility] [id number]) Hip Strength Hip Manual Muscle Testing Right Flexion (L2) 3 Fair Extension (S1) 3 Fair Abduction 3 Fair External Rotation 3 Fair Comments pain with resisted ER and hip flexion on the right Ankle/Foot Strength Ankle and Foot Manual Muscle Testing Right Dorsiflexion (L4) 3+ Fair+ Plantarflexion (S1) 4 Good PT-OP-Q Treatments Start: 05/02/23 08:14 Freq: Status: Active Protocol: Document 05/05/23 09:37 AB (Rec: 05/05/23 11:37 AB [id number]) Therapeutic Exercises Supine Exercises bent knee fall out Supine Exercise Name Very small movement Side bilateral Reps/Minutes X10 Comments VC for minimal LE movement and self tactile cues at pelvis to insure no rot hip flexor stretch Supine Exercise Name edge of bed stretch modified to on bed with left LE elevated on bolster Side right Reps/Minutes 2 min Comments verbal cues for breathing from diaphragm Sitting Exercises seated hip abduction with band Side bilateral Equipment Used level one light blue band Reps/Minutes X10 X 3 w/o hold then one one minute hold Comments Verbal cues Gait Training Gait Activity ambulation without device Device Used no device Level of Assistance no assistance Surface floor Distance/Duration 45 feet Comments Verbal cues to avoid excessive toeing out right LE and to ambulate with heel toe pattern . Manual Therapy Treatment Soft Tissue Mobilization right hip flexor at groin Mobilization Type Cross-Friction,Rolling Intensity/Depth Moderate Body Position Hooklying Comments Monitored for pain, performed prior to stretch right lumbar paraspinals Mobilization Type Sustained Pressure Intensity/Depth Superficial Body Position Sidelying Comments monitored for pain right piriformis Mobilization Type Cross-Friction,Rolling Intensity/Depth Moderate Body Position Sidelying Comments monitored for pain, performed prior to manual stretch Manual Techniques PROM right hip IR Body Location right jo Body Position Sitting Reps/Duration 60 sec X 2 and X 3 without hold Comments post manual therapy Self-Care/Home Management Treatment Activities Self-Care/Home Management Activities bent knee fall out, seated hip abduction with band and modified hip flexor stretch added to HEP PT-OP-T Assessment and Plan Start: 05/02/23 08:14 Freq: Status: Active Protocol: Document 05/05/23 09:37 AB (Rec: 05/05/23 11:37 AB [id number]) Physical Therapy Assessment Assessment Summary Assessment Harleen reports feeling looser end of session. LE muscle stiffness and weakness continues to impact functional mobility. Monitored for hip hinge and log roll throughout session, with good tech noted. Physical Therapy Plan Frequency and Duration Frequency of Treatment 2x/Week Duration of treatment (weeks) 8 Plan of Care Start Date 05/02/23 Plan of Care End Date 06/27/23 Next Visit Focus/Plan Next Visit Plan review exercises given today, begin gait training working on heel strike and strengthening for improved DF strength on the right foot( add calf stretch and AROM DF to HEP ). Work on core stability and hip strengthening (abdominal bracing with LE extension ), review clamshell with band, Hip stretching during session post manual therapy
--- NOTE | 2023-05-09 12:49 | PT.OTN ---
Current Diagnoses Pain in right hip (05/09/23) Stiffness of unspecified hip, not elsewhere classified (05/09/23) Other specified joint disorders, unspecified hip (05/09/23) Spondylolisthesis, lumbosacral region (05/09/23) Spinal stenosis, lumbar region without neurogenic claudication (05/09/23) Physical Therapy Treatment Note PT-OP-A Visit Information Start: 05/02/23 08:14 Freq: Status: Active Protocol: Document 05/09/23 12:00 DCW (Rec: 05/09/23 12:49 DCW [id number]) Out-Patient Physical Therapy Visit Information Visit Information Visit Type Treatment Note Visit Start Time 12:00 Visit Stop Time 12:45 Visit Number 3 Number of BODY CARE MANAGER Visits 0 Evaluation Information Evaluation Date 05/02/23 Precautions Precautions pt is still under her lumbar fusion precautions of no lifting, bending, or twisting PT-OP-B Current Condition Start: 05/02/23 08:14 Freq: Status: Active Protocol: Document 05/02/23 11:15 [facility] (Rec: 05/02/23 10:10 [facility] [id number]) Current Condition History of Current Condition Onset Date 02/15/23 Current Complaints Right sided anterior hip pain History of Current Condition 72 year old female s/p L5-S1 postero-lateral and posterior interbody fusion on 02/15/23, pt had a follow up appt with her doctor and she was given the go ahead to get back in the pool so that has felt good to her. She reports her complaints prior to surgery were of right sided anterior hip pain. Harleen notes she has a collapsed right arch which has caused a lot of pain on and off over the years. Last spring her right hip started hurting constantly and she was limping . She had hip xrays taken and a MRI of her spine and saw Dr Lena Canseco reports she was advised to have a fusion due to the nerve damage in her spine was causing the hip pain . She notes she wasn't having back pain at the time but was experiencing some radicular symptoms into her anterior right thigh. Since the surgery her right hip pain has not changed. She did feel that resting it helped her but once she has gotten back to walking she is feeling the anterior pain again. She notes she is not limping as much but she feels very weak since surgery. She finds her hips roll out into ER with sleeping and she will wake up with anterior/groin pain in the am. Her radiating nerve pain has decreased overall since surgery. She does have a walker but she is walking on her own in the house. She comes into PT today without a walker or cane. She reports feeling very tight in her right hip as compared to her left. She is able to go up and down the stairs in her house leading with her left leg. She has another follow up with Dr. Honeycutt next week Prior Treatments and Tests Xray taken in August of 2022 shows bilateral hip arthritis most severe on the right Treatment Goals Patient/Caregiver Goals Harleen would like to improve her walking ability and walk without hip pain. She would like to improve overall core and hip strength Prior Functional Status Baseline Function- ADL's Needs Assist Baseline Function- Mobility Needs Assist Baseline Function- Gait pt had right sided hip pain with gait prior to surgery Current Functional Impairments (Reported) Functional Limitations- ADL's limited in ADL's that require bending and lifting and twisting due to fusion precautions Functional Limitations- Mobility/Gait pt is currently limited to standing and ambulating of 10 min or less PT-OP-C Subjective Start: 05/02/23 08:14 Freq: Status: Active Protocol: Document 05/09/23 12:00 DCW (Rec: 05/09/23 12:49 DCW [id number]) OP-PT Subjective Patient Comments Patient Comments Pt notes she woke up this morning without her usual pain . Admits she still not walking well, still feels tight and sore when up moving around, but overall improved. Had three month follow-up with surgeon this morning, overall looking good. PT-OP-G Mobility & Gait Start: 05/02/23 14:11 Freq: Status: Active Protocol: Document 05/02/23 11:15 AMH (Rec: 05/02/23 14:14 AMH [id number]) OP Mobility Evaluation Bed Mobility Rolling pt demonstrates log rolling technique for transfers in and out of bed Ind Supine to and from Sit Ind Transfers Sit to Stand uses hands with sit-stand OP Gait Assessment Gait Gait Assistance Required: Standby Assistance Distance (Feet) 300 Able to Maintain Weight Bearing Status Yes During Gait Factors Limiting Gait Function Factors Limiting Gait Function Decreased Strength,Limited Range of Motion,Pain Comments Gait Comments Harleen has a walker for community ambulation however she did not have it with her today. She also has walking sticks that she uses. Harleen ambulates with the right LE ER , she lacks heel strike for push of and presents with a small amount of toe drag which causes her to lose her balance. PT-OP-K Range of Motion Start: 05/02/23 08:14 Freq: Status: Active Protocol: Document 05/02/23 11:15 [facility] (Rec: 05/02/23 14:25 [facility] [id number]) Hip Goniometric Range of Motion Hip right Hip ROM WFL No Testing Position Supine Flexion w/Knee Flexed 100 Straight Leg Raise 45 Extension 0 Abduction 15 Internal Rotation 5 External Rotation 20 Comments pt lacks hip extension and is tight in the iliopsoas and quads on the right, she has pain in the anterior hip with hip flexion, IR is very limited Hip ROM Limitations Hip ROM Limitations Soft Tissue Tightness,Bony Restriction,Pain Ankle and Foot Goniometric Range of Motion Ankle and Foot Right Ankle/Foot ROM WFL No Testing Position Supine Dorsiflexion with Knee Extended 4 Ankle and Foot ROM Limitations ROM Limitations Soft Tissue Tightness,Muscle Weakness Comments pt presents with tightness in the calf musculature limiting ankle DF as well as decreased strength of Tibialis anterior on the right PT-OP-M Strength Start: 05/02/23 14:11 Freq: Status: Active Protocol: Document 05/02/23 11:15 [facility] (Rec: 05/02/23 14:25 [facility] [id number]) Hip Strength Hip Manual Muscle Testing Right Flexion (L2) 3 Fair Extension (S1) 3 Fair Abduction 3 Fair External Rotation 3 Fair Comments pain with resisted ER and hip flexion on the right Ankle/Foot Strength Ankle and Foot Manual Muscle Testing Right Dorsiflexion (L4) 3+ Fair+ Plantarflexion (S1) 4 Good PT-OP-Q Treatments Start: 05/02/23 08:14 Freq: Status: Active Protocol: Document 05/09/23 12:00 DCW (Rec: 05/09/23 12:49 DCW [id number]) Cardio Equipment Recumbent Elliptical ([employer]) Duration (Minutes) 5 Resistance 3 Seat Position 11 Therapeutic Exercises Supine Exercises Piriformis Supine Exercise Name Knee to opposite shoulder, Figure-4 Side right Hamstring Supine Exercise Name HS stretch Side bilateral TA SLR Supine Exercise Name TA bracing with SLR Reps/Minutes 5 hold x5 TA March Supine Exercise Name TA bracing with marching Reps/Minutes 20 x2 TA bracing in supine Reps/Minutes x 10 reps holding 5 sec Sitting Exercises Piriformis Sitting Exercise Name Seated Figure-4 Side bilateral Other Exercises Resisted Ambulation Other Exercise Name Resisted side-stepping Resistance Green loop Toe-taps Other Exercise Name Toe-taps Side bilateral Resistance 4# Equipment Used 6 step PT-OP-T Assessment and Plan Start: 05/02/23 08:14 Freq: Status: Active Protocol: Document 05/09/23 12:00 DCW (Rec: 05/09/23 12:49 DCW [id number]) Physical Therapy Assessment Goals Modified oswestry low back pain disability questionaire Impairment pt scores 26 on the modified oswestry questionnaire Otr Flatbed Driver Goal (LTG) Harleen is able to improve her score to 20% or better LTG Duration 12 weeks gait Impairment Harleen is limited to 10 min of standing and gait at this time due to increased right sided hip pain Otr Flatbed Driver Goal (LTG) Harleen is able to increase her standing time to 20 min and is able to increase her walking distance to 1/2 mile or more LTG Duration 8 weeks weakness Impairment Harleen presents with weakness of the right tibialis anterior and hip and musculature Short Term Goal (STG) Harleen is educated on a home strenghtening program Skilled Nursing Goal (LTG) Harleen demonstrates improved strength of the tibialis anterior and hip abduction/ER on the Right with MMT LTG Duration 8 Hip ROM Impairment Pt with limited R hip mobility secondary to pain. She is limited to 100 degrees hip flexion Short Term Goal (STG) Harleen is educated on a home stretching program for her hips STG Duration 4 weeks Otr Flatbed Driver Goal (LTG) pt has improved hip mobility into hip extension and is able to improve hip flexion to 110 degrees in supine Assessment Summary Assessment Very good response to treatment today, agreeable to increased stretching for HEP. No increased pain with most strengthening today, did have too much difficulty with SLR on right side. Physical Therapy Plan Frequency and Duration Frequency of Treatment 2x/Week Duration of treatment (weeks) 8 Plan of Care Start Date 05/02/23 Plan of Care End Date 06/27/23 Therapeutic Interventions Therapeutic Interventions Balance Training,Gait Training ,Home Exercise Program,Manual Therapy,Neuromuscular Re- education,Patient/Caregiver Education,Self-Care/Home Management,Therapeutic Exercises Next Visit Focus/Plan Next Note Type Treatment Note Next Visit Plan review exercises given today, begin gait training working on heel strike and strengthening for improved DF strength on the right foot. Work on core stability and hip strengthening
--- NOTE | 2023-05-11 12:43 | PT.OTN ---
Current Diagnoses Pain in right hip (05/11/23) Stiffness of unspecified hip, not elsewhere classified (05/11/23) Other specified joint disorders, unspecified hip (05/11/23) Spondylolisthesis, lumbosacral region (05/11/23) Spinal stenosis, lumbar region without neurogenic claudication (05/11/23) Physical Therapy Treatment Note PT-OP-A Visit Information Start: 05/02/23 08:14 Freq: Status: Active Protocol: Document 05/11/23 12:00 DCW (Rec: 05/11/23 12:43 DCW [id number]) Out-Patient Physical Therapy Visit Information Visit Information Visit Type Treatment Note Visit Start Time 12:00 Visit Stop Time 12:45 Visit Number 4 Number of PUBLIC HEALTH ADMINISTRATOR Visits 0 Evaluation Information Evaluation Date 05/02/23 Precautions Precautions pt is still under her lumbar fusion precautions of no lifting, bending, or twisting PT-OP-B Current Condition Start: 05/02/23 08:14 Freq: Status: Active Protocol: Document 05/02/23 11:15 AMH (Rec: 05/02/23 10:10 [facility] [id number]) Current Condition History of Current Condition Onset Date 02/15/23 Current Complaints Right sided anterior hip pain History of Current Condition 72 year old female s/p L5-S1 postero-lateral and posterior interbody fusion on 02/15/23, pt had a follow up appt with her doctor and she was given the go ahead to get back in the pool so that has felt good to her. She reports her complaints prior to surgery were of right sided anterior hip pain. Harleen notes she has a collapsed right arch which has caused a lot of pain on and off over the years. Last spring her right hip started hurting constantly and she was limping . She had hip xrays taken and a MRI of her spine and saw Dr Lena Canseco reports she was advised to have a fusion due to the nerve damage in her spine was causing the hip pain . She notes she wasn't having back pain at the time but was experiencing some radicular symptoms into her anterior right thigh. Since the surgery her right hip pain has not changed. She did feel that resting it helped her but once she has gotten back to walking she is feeling the anterior pain again. She notes she is not limping as much but she feels very weak since surgery. She finds her hips roll out into ER with sleeping and she will wake up with anterior/groin pain in the am. Her radiating nerve pain has decreased overall since surgery. She does have a walker but she is walking on her own in the house. She comes into PT today without a walker or cane. She reports feeling very tight in her right hip as compared to her left. She is able to go up and down the stairs in her house leading with her left leg. She has another follow up with Dr. Honeycutt next week Prior Treatments and Tests Xray taken in August of 2022 shows bilateral hip arthritis most severe on the right Treatment Goals Patient/Caregiver Goals Harleen would like to improve her walking ability and walk without hip pain. She would like to improve overall core and hip strength Prior Functional Status Baseline Function- ADL's Needs Assist Baseline Function- Mobility Needs Assist Baseline Function- Gait pt had right sided hip pain with gait prior to surgery Current Functional Impairments (Reported) Functional Limitations- ADL's limited in ADL's that require bending and lifting and twisting due to fusion precautions Functional Limitations- Mobility/Gait pt is currently limited to standing and ambulating of 10 min or less PT-OP-C Subjective Start: 05/02/23 08:14 Freq: Status: Active Protocol: Document 05/11/23 12:00 DCW (Rec: 05/11/23 12:43 DCW [id number]) OP-PT Subjective Patient Comments Patient Comments I'm doing pretty well, I feel like things are happening ( good things). Notes her hip is still feeling much better. PT-OP-G Mobility & Gait Start: 05/02/23 14:11 Freq: Status: Active Protocol: Document 05/02/23 11:15 AMH (Rec: 05/02/23 14:14 [facility]H [id number]) OP Mobility Evaluation Bed Mobility Rolling pt demonstrates log rolling technique for transfers in and out of bed Ind Supine to and from Sit Ind Transfers Sit to Stand uses hands with sit-stand OP Gait Assessment Gait Gait Assistance Required: Standby Assistance Distance (Feet) 300 Able to Maintain Weight Bearing Status Yes During Gait Factors Limiting Gait Function Factors Limiting Gait Function Decreased Strength,Limited Range of Motion,Pain Comments Gait Comments Harleen has a walker for community ambulation however she did not have it with her today. She also has walking sticks that she uses. Harleen ambulates with the right LE ER , she lacks heel strike for push of and presents with a small amount of toe drag which causes her to lose her balance. PT-OP-K Range of Motion Start: 05/02/23 08:14 Freq: Status: Active Protocol: Document 05/02/23 11:15 AMH (Rec: 05/02/23 14:25 [facility] [id number]) Hip Goniometric Range of Motion Hip right Hip ROM WFL No Testing Position Supine Flexion w/Knee Flexed 100 Straight Leg Raise 45 Extension 0 Abduction 15 Internal Rotation 5 External Rotation 20 Comments pt lacks hip extension and is tight in the iliopsoas and quads on the right, she has pain in the anterior hip with hip flexion, IR is very limited Hip ROM Limitations Hip ROM Limitations Soft Tissue Tightness,Bony Restriction,Pain Ankle and Foot Goniometric Range of Motion Ankle and Foot Right Ankle/Foot ROM WFL No Testing Position Supine Dorsiflexion with Knee Extended 4 Ankle and Foot ROM Limitations ROM Limitations Soft Tissue Tightness,Muscle Weakness Comments pt presents with tightness in the calf musculature limiting ankle DF as well as decreased strength of Tibialis anterior on the right PT-OP-M Strength Start: 05/02/23 14:11 Freq: Status: Active Protocol: Document 05/02/23 11:15 AMH (Rec: 05/02/23 14:25 [facility] [id number]) Hip Strength Hip Manual Muscle Testing Right Flexion (L2) 3 Fair Extension (S1) 3 Fair Abduction 3 Fair External Rotation 3 Fair Comments pain with resisted ER and hip flexion on the right Ankle/Foot Strength Ankle and Foot Manual Muscle Testing Right Dorsiflexion (L4) 3+ Fair+ Plantarflexion (S1) 4 Good PT-OP-Q Treatments Start: 05/02/23 08:14 Freq: Status: Active Protocol: Document 05/11/23 12:00 DCW (Rec: 05/11/23 12:43 DCW [id number]) Cardio Equipment Recumbent Elliptical ([employer]) Duration (Minutes) 5 Resistance 4 Seat Position 10 Gym Equipment Shuttle Recovery Unilateral Squats Resistance 37# Shuttle Recovery Platform Stable Bilateral Squats Details B squats Resistance 75# Shuttle Recovery Platform Stable Therapeutic Exercises Supine Exercises Piriformis Supine Exercise Name Knee to opposite shoulder, Figure-4 Side bilateral Hamstring Supine Exercise Name HS stretch Side bilateral TA March Supine Exercise Name TA bracing with marching Reps/Minutes 20 x2 single knee to chest stretch Supine Exercise Name SKtC Standing Exercises Hip Extension Standing Exercise Name Hip Extension Side bilateral Resistance Green Pallof Press Standing Exercise Name Pallof Press Side bilateral Resistance Green Other Exercises Resisted Ambulation Other Exercise Name Resisted side-stepping Resistance Green loop PT-OP-T Assessment and Plan Start: 05/02/23 08:14 Freq: Status: Active Protocol: Document 05/11/23 12:00 DCW (Rec: 05/11/23 12:43 DCW [id number]) Physical Therapy Assessment Goals Modified oswestry low back pain disability questionaire Impairment pt scores 26 on the modified oswestry questionnaire Human Resources Professional Goal (LTG) Harleen is able to improve her score to 20% or better LTG Duration 12 weeks gait Impairment Harleen is limited to 10 min of standing and gait at this time due to increased right sided hip pain Correction Goal (LTG) Harelen is able to increase her standing time to 20 min and is able to increase her walking distance to 1/2 mile or more LTG Duration 8 weeks weakness Impairment Harleen presents with weakness of the right tibialis anterior and hip and musculature Short Term Goal (STG) Harleen is educated on a home strenghtening program Human Resources Professional Goal (LTG) Harleen demonstrates improved strength of the tibialis anterior and hip abduction/ER on the Right with MMT LTG Duration 8 Hip ROM Impairment Pt with limited R hip mobility secondary to pain. She is limited to 100 degrees hip flexion Short Term Goal (STG) Harleen is educated on a home stretching program for her hips STG Duration 4 weeks Human Resources Professional Goal (LTG) pt has improved hip mobility into hip extension and is able to improve hip flexion to 110 degrees in supine Assessment Summary Assessment Continues to do well with slight increases in difficulty with strengthening and mobility. Work on hip mobility /flexibility, hip and core strengthening, and functional mobility. Physical Therapy Plan Frequency and Duration Frequency of Treatment 2x/Week Duration of treatment (weeks) 8 Plan of Care Start Date 05/02/23 Plan of Care End Date 06/27/23 Therapeutic Interventions Therapeutic Interventions Balance Training,Gait Training ,Home Exercise Program,Manual Therapy,Neuromuscular Re- education,Patient/Caregiver Education,Self-Care/Home Management,Therapeutic Exercises Next Visit Focus/Plan Next Note Type Treatment Note Next Visit Plan review exercises given today, begin gait training working on heel strike and strengthening for improved DF strength on the right foot. Work on core stability and hip strengthening
--- NOTE | 2023-05-17 10:46 | PT.OTN ---
Current Diagnoses Pain in right hip (05/17/23) Stiffness of unspecified hip, not elsewhere classified (05/17/23) Other specified joint disorders, unspecified hip (05/17/23) Spondylolisthesis, lumbosacral region (05/17/23) Spinal stenosis, lumbar region without neurogenic claudication (05/17/23) Physical Therapy Treatment Note PT-OP-A Visit Information Start: 05/02/23 08:14 Freq: Status: Active Protocol: Document 05/17/23 08:10 AB (Rec: 05/17/23 10:46 AB [id number]) Out-Patient Physical Therapy Visit Information Visit Information Visit Type Treatment Note Visit Note Access Code [email or web address] Visit Start Time 09:49 Visit Stop Time 10:31 Visit Number 5 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 Evaluation Information Evaluation Date 05/02/23 Precautions Precautions pt is still under her lumbar fusion precautions of no lifting, bending, or twisting PT-OP-B Current Condition Start: 05/02/23 08:14 Freq: Status: Active Protocol: Document 05/02/23 11:15 AMH (Rec: 05/02/23 10:10 AMH [id number]) Current Condition History of Current Condition Onset Date 02/15/23 Current Complaints Right sided anterior hip pain History of Current Condition 72 year old female s/p L5-S1 postero-lateral and posterior interbody fusion on 02/15/23, pt had a follow up appt with her doctor and she was given the go ahead to get back in the pool so that has felt good to her. She reports her complaints prior to surgery were of right sided anterior hip pain. Harleen notes she has a collapsed right arch which has caused a lot of pain on and off over the years. Last spring her right hip started hurting constantly and she was limping . She had hip xrays taken and a MRI of her spine and saw Dr Lena Canseco reports she was advised to have a fusion due to the nerve damage in her spine was causing the hip pain . She notes she wasn't having back pain at the time but was experiencing some radicular symptoms into her anterior right thigh. Since the surgery her right hip pain has not changed. She did feel that resting it helped her but once she has gotten back to walking she is feeling the anterior pain again. She notes she is not limping as much but she feels very weak since surgery. She finds her hips roll out into ER with sleeping and she will wake up with anterior/groin pain in the am. Her radiating nerve pain has decreased overall since surgery. She does have a walker but she is walking on her own in the house. She comes into PT today without a walker or cane. She reports feeling very tight in her right hip as compared to her left. She is able to go up and down the stairs in her house leading with her left leg. She has another follow up with Dr. Honeycutt next week Prior Treatments and Tests Xray taken in August of 2022 shows bilateral hip arthritis most severe on the right Treatment Goals Patient/Caregiver Goals Harleen would like to improve her walking ability and walk without hip pain. She would like to improve overall core and hip strength Prior Functional Status Baseline Function- ADL's Needs Assist Baseline Function- Mobility Needs Assist Baseline Function- Gait pt had right sided hip pain with gait prior to surgery Current Functional Impairments (Reported) Functional Limitations- ADL's limited in ADL's that require bending and lifting and twisting due to fusion precautions Functional Limitations- Mobility/Gait pt is currently limited to standing and ambulating of 10 min or less PT-OP-C Subjective Start: 05/02/23 08:14 Freq: Status: Active Protocol: Document 05/17/23 08:10 AB (Rec: 05/17/23 10:46 AB [id number]) OP-PT Subjective Patient Comments Patient Comments Patient reports sometimes she feels better, sometimes worse in the course of the day. Harleen reports she just left the pool. Patient comments the days she does the stretches at home she feels better. PT-OP-G Mobility & Gait Start: 05/02/23 14:11 Freq: Status: Active Protocol: Document 05/02/23 11:15 AMH (Rec: 05/02/23 14:14 AMH [id number]) OP Mobility Evaluation Bed Mobility Rolling pt demonstrates log rolling technique for transfers in and out of bed Ind Supine to and from Sit Ind Transfers Sit to Stand uses hands with sit-stand OP Gait Assessment Gait Gait Assistance Required: Standby Assistance Distance (Feet) 300 Able to Maintain Weight Bearing Status Yes During Gait Factors Limiting Gait Function Factors Limiting Gait Function Decreased Strength,Limited Range of Motion,Pain Comments Gait Comments Harleen has a walker for community ambulation however she did not have it with her today. She also has walking sticks that she uses. Harleen ambulates with the right LE ER , she lacks heel strike for push of and presents with a small amount of toe drag which causes her to lose her balance. PT-OP-K Range of Motion Start: 05/02/23 08:14 Freq: Status: Active Protocol: Document 05/02/23 11:15 AMH (Rec: 05/02/23 14:25 AMH [id number]) Hip Goniometric Range of Motion Hip right Hip ROM WFL No Testing Position Supine Flexion w/Knee Flexed 100 Straight Leg Raise 45 Extension 0 Abduction 15 Internal Rotation 5 External Rotation 20 Comments pt lacks hip extension and is tight in the iliopsoas and quads on the right, she has pain in the anterior hip with hip flexion, IR is very limited Hip ROM Limitations Hip ROM Limitations Soft Tissue Tightness,Bony Restriction,Pain Ankle and Foot Goniometric Range of Motion Ankle and Foot Right Ankle/Foot ROM WFL No Testing Position Supine Dorsiflexion with Knee Extended 4 Ankle and Foot ROM Limitations ROM Limitations Soft Tissue Tightness,Muscle Weakness Comments pt presents with tightness in the calf musculature limiting ankle DF as well as decreased strength of Tibialis anterior on the right PT-OP-M Strength Start: 05/02/23 14:11 Freq: Status: Active Protocol: Document 05/02/23 11:15 AMH (Rec: 05/02/23 14:25 AMH [id number]) Hip Strength Hip Manual Muscle Testing Right Flexion (L2) 3 Fair Extension (S1) 3 Fair Abduction 3 Fair External Rotation 3 Fair Comments pain with resisted ER and hip flexion on the right Ankle/Foot Strength Ankle and Foot Manual Muscle Testing Right Dorsiflexion (L4) 3+ Fair+ Plantarflexion (S1) 4 Good PT-OP-Q Treatments Start: 05/02/23 08:14 Freq: Status: Active Protocol: Document 05/17/23 08:10 AB (Rec: 05/17/23 10:46 AB [id number]) Therapeutic Exercises Supine Exercises bent knee fall out Supine Exercise Name Very small movement Side bilateral Reps/Minutes X10 hip flexor stretch Supine Exercise Name edge of bed stretch modified to on bed with left LE elevated on bolster Side bilateral Reps/Minutes one minute X 2 each LE Comments physical assist for second trial on right hooklying clam shell with resistance Equipment Used level 3 theraband Reps/Minutes 2 x 10 reps Comments monitored for pain/tolerance Sitting Exercises Piriformis Sitting Exercise Name Seated Figure-4 Side bilateral Reps/Minutes 1 Comments VC for hip hinge seated hip abduction with band Side bilateral Equipment Used level 3 green band Reps/Minutes one one minute hold Comments Verbal cues Standing Exercises Pallof Press Standing Exercise Name Pallof Press Side bilateral Resistance Green Reps/Minutes 1X10 Gait Training Gait Activity ambulation without device Device Used no device Level of Assistance no assistance Surface floor Distance/Duration 45 feet X2 Comments Verbal cues to avoid excessive toeing out right LE and to ambulate with heel toe pattern . Manual Therapy Treatment Soft Tissue Mobilization right hip flexor at groin Mobilization Type Cross-Friction,Rolling Intensity/Depth Moderate Body Position Hooklying Comments Monitored for pain, performed prior to stretch right lumbar paraspinals Mobilization Type Sustained Pressure Intensity/Depth Superficial Body Position Sidelying Comments monitored for pain right piriformis Mobilization Type Cross-Friction,Rolling Intensity/Depth Moderate Body Position Sidelying Comments monitored for pain PT-OP-T Assessment and Plan Start: 05/02/23 08:14 Freq: Status: Active Protocol: Document 05/17/23 08:10 AB (Rec: 05/17/23 10:46 AB [id number]) Physical Therapy Assessment Goals Modified oswestry low back pain disability questionaire Impairment pt scores 26 on the modified oswestry questionnaire Half-Way Goal (LTG) Harleen is able to improve her score to 20% or better LTG Duration 12 weeks gait Impairment Harleen is limited to 10 min of standing and gait at this time due to increased right sided hip pain Director Hematology Goal (LTG) Harleen is able to increase her standing time to 20 min and is able to increase her walking distance to 1/2 mile or more LTG Duration 8 weeks weakness Impairment Harleen presents with weakness of the right tibialis anterior and hip and musculature Short Term Goal (STG) Harleen is educated on a home strenghtening program Director Hematology Goal (LTG) Harleen demonstrates improved strength of the tibialis anterior and hip abduction/ER on the Right with MMT LTG Duration 8 Hip ROM Impairment Pt with limited R hip mobility secondary to pain. She is limited to 100 degrees hip flexion Short Term Goal (STG) Harleen is educated on a home stretching program for her hips STG Duration 4 weeks Half-Way Goal (LTG) pt has improved hip mobility into hip extension and is able to improve hip flexion to 110 degrees in supine Assessment Summary Assessment Harleen reports feeling good end of session, able to ambulate with heel toe pattern decreased scuffing of right foot, comments focusing on just heel toe vs lateral side of foot during ambulation improved ability to hold the pattern. Harleen was able to perform hip flexor stretch with right LE off bed today on first trial, required assist/ modification on second trial, excessive rectus stiffness noted and may be contributing to gait deviations right LE. Physical Therapy Plan Frequency and Duration Frequency of Treatment 2x/Week Duration of treatment (weeks) 8 Plan of Care Start Date 05/02/23 Plan of Care End Date 06/27/23 Therapeutic Interventions Therapeutic Interventions Balance Training,Gait Training ,Home Exercise Program,Manual Therapy,Neuromuscular Re- education,Patient/Caregiver Education,Self-Care/Home Management,Therapeutic Exercises Next Visit Focus/Plan Next Note Type Treatment Note Next Visit Plan Gait training, heel strike and strengthening for improved DF strength on the right foot. Work on core stability/ abdominal bracing with LE extension and hip strengthening/standing hip extension to stalin possibly with abdominal bracing
--- NOTE | 2023-05-17 10:47 | PT.OTN ---
Current Diagnoses Pain in right hip (05/17/23) Stiffness of unspecified hip, not elsewhere classified (05/17/23) Other specified joint disorders, unspecified hip (05/17/23) Spondylolisthesis, lumbosacral region (05/17/23) Spinal stenosis, lumbar region without neurogenic claudication (05/17/23) Physical Therapy Treatment Note PT-OP-A Visit Information Start: 05/02/23 08:14 Freq: Status: Active Protocol: Document 05/17/23 08:10 AB (Rec: 05/17/23 10:46 AB [id number]) Out-Patient Physical Therapy Visit Information Visit Information Visit Type Treatment Note Visit Note Access Code [email or web address] Visit Start Time 09:49 Visit Stop Time 10:31 Visit Number 5 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 Evaluation Information Evaluation Date 05/02/23 Precautions Precautions pt is still under her lumbar fusion precautions of no lifting, bending, or twisting PT-OP-B Current Condition Start: 05/02/23 08:14 Freq: Status: Active Protocol: Document 05/02/23 11:15 AMH (Rec: 05/02/23 10:10 AMH [id number]) Current Condition History of Current Condition Onset Date 02/15/23 Current Complaints Right sided anterior hip pain History of Current Condition 72 year old female s/p L5-S1 postero-lateral and posterior interbody fusion on 02/15/23, pt had a follow up appt with her doctor and she was given the go ahead to get back in the pool so that has felt good to her. She reports her complaints prior to surgery were of right sided anterior hip pain. Harleen notes she has a collapsed right arch which has caused a lot of pain on and off over the years. Last spring her right hip started hurting constantly and she was limping . She had hip xrays taken and a MRI of her spine and saw Dr Lena Canseco reports she was advised to have a fusion due to the nerve damage in her spine was causing the hip pain . She notes she wasn't having back pain at the time but was experiencing some radicular symptoms into her anterior right thigh. Since the surgery her right hip pain has not changed. She did feel that resting it helped her but once she has gotten back to walking she is feeling the anterior pain again. She notes she is not limping as much but she feels very weak since surgery. She finds her hips roll out into ER with sleeping and she will wake up with anterior/groin pain in the am. Her radiating nerve pain has decreased overall since surgery. She does have a walker but she is walking on her own in the house. She comes into PT today without a walker or cane. She reports feeling very tight in her right hip as compared to her left. She is able to go up and down the stairs in her house leading with her left leg. She has another follow up with Dr. Honeycutt next week Prior Treatments and Tests Xray taken in August of 2022 shows bilateral hip arthritis most severe on the right Treatment Goals Patient/Caregiver Goals Harleen would like to improve her walking ability and walk without hip pain. She would like to improve overall core and hip strength Prior Functional Status Baseline Function- ADL's Needs Assist Baseline Function- Mobility Needs Assist Baseline Function- Gait pt had right sided hip pain with gait prior to surgery Current Functional Impairments (Reported) Functional Limitations- ADL's limited in ADL's that require bending and lifting and twisting due to fusion precautions Functional Limitations- Mobility/Gait pt is currently limited to standing and ambulating of 10 min or less PT-OP-C Subjective Start: 05/02/23 08:14 Freq: Status: Active Protocol: Document 05/17/23 08:10 AB (Rec: 05/17/23 10:46 AB [id number]) OP-PT Subjective Patient Comments Patient Comments Patient reports sometimes she feels better, sometimes worse in the course of the day. Harleen reports she just left the pool. Patient comments the days she does the stretches at home she feels better. PT-OP-G Mobility & Gait Start: 05/02/23 14:11 Freq: Status: Active Protocol: Document 05/02/23 11:15 AMH (Rec: 05/02/23 14:14 AMH [id number]) OP Mobility Evaluation Bed Mobility Rolling pt demonstrates log rolling technique for transfers in and out of bed Ind Supine to and from Sit Ind Transfers Sit to Stand uses hands with sit-stand OP Gait Assessment Gait Gait Assistance Required: Standby Assistance Distance (Feet) 300 Able to Maintain Weight Bearing Status Yes During Gait Factors Limiting Gait Function Factors Limiting Gait Function Decreased Strength,Limited Range of Motion,Pain Comments Gait Comments Harleen has a walker for community ambulation however she did not have it with her today. She also has walking sticks that she uses. Harleen ambulates with the right LE ER , she lacks heel strike for push of and presents with a small amount of toe drag which causes her to lose her balance. PT-OP-K Range of Motion Start: 05/02/23 08:14 Freq: Status: Active Protocol: Document 05/02/23 11:15 AMH (Rec: 05/02/23 14:25 AMH [id number]) Hip Goniometric Range of Motion Hip right Hip ROM WFL No Testing Position Supine Flexion w/Knee Flexed 100 Straight Leg Raise 45 Extension 0 Abduction 15 Internal Rotation 5 External Rotation 20 Comments pt lacks hip extension and is tight in the iliopsoas and quads on the right, she has pain in the anterior hip with hip flexion, IR is very limited Hip ROM Limitations Hip ROM Limitations Soft Tissue Tightness,Bony Restriction,Pain Ankle and Foot Goniometric Range of Motion Ankle and Foot Right Ankle/Foot ROM WFL No Testing Position Supine Dorsiflexion with Knee Extended 4 Ankle and Foot ROM Limitations ROM Limitations Soft Tissue Tightness,Muscle Weakness Comments pt presents with tightness in the calf musculature limiting ankle DF as well as decreased strength of Tibialis anterior on the right PT-OP-M Strength Start: 05/02/23 14:11 Freq: Status: Active Protocol: Document 05/02/23 11:15 AMH (Rec: 05/02/23 14:25 AMH [id number]) Hip Strength Hip Manual Muscle Testing Right Flexion (L2) 3 Fair Extension (S1) 3 Fair Abduction 3 Fair External Rotation 3 Fair Comments pain with resisted ER and hip flexion on the right Ankle/Foot Strength Ankle and Foot Manual Muscle Testing Right Dorsiflexion (L4) 3+ Fair+ Plantarflexion (S1) 4 Good PT-OP-Q Treatments Start: 05/02/23 08:14 Freq: Status: Active Protocol: Document 05/17/23 08:10 AB (Rec: 05/17/23 10:46 AB [id number]) Therapeutic Exercises Supine Exercises bent knee fall out Supine Exercise Name Very small movement Side bilateral Reps/Minutes X10 hip flexor stretch Supine Exercise Name edge of bed stretch modified to on bed with left LE elevated on bolster Side bilateral Reps/Minutes one minute X 2 each LE Comments physical assist for second trial on right hooklying clam shell with resistance Equipment Used level 3 theraband Reps/Minutes 2 x 10 reps Comments monitored for pain/tolerance Sitting Exercises Piriformis Sitting Exercise Name Seated Figure-4 Side bilateral Reps/Minutes 1 Comments VC for hip hinge seated hip abduction with band Side bilateral Equipment Used level 3 green band Reps/Minutes one one minute hold Comments Verbal cues Standing Exercises Pallof Press Standing Exercise Name Pallof Press Side bilateral Resistance Green Reps/Minutes 1X10 Gait Training Gait Activity ambulation without device Device Used no device Level of Assistance no assistance Surface floor Distance/Duration 45 feet X2 Comments Verbal cues to avoid excessive toeing out right LE and to ambulate with heel toe pattern . Manual Therapy Treatment Soft Tissue Mobilization right hip flexor at groin Mobilization Type Cross-Friction,Rolling Intensity/Depth Moderate Body Position Hooklying Comments Monitored for pain, performed prior to stretch right lumbar paraspinals Mobilization Type Sustained Pressure Intensity/Depth Superficial Body Position Sidelying Comments monitored for pain right piriformis Mobilization Type Cross-Friction,Rolling Intensity/Depth Moderate Body Position Sidelying Comments monitored for pain PT-OP-T Assessment and Plan Start: 05/02/23 08:14 Freq: Status: Active Protocol: Document 05/17/23 08:10 AB (Rec: 05/17/23 10:46 AB [id number]) Physical Therapy Assessment Goals Modified oswestry low back pain disability questionaire Impairment pt scores 26 on the modified oswestry questionnaire [facility] Goal (LTG) Harleen is able to improve her score to 20% or better LTG Duration 12 weeks gait Impairment Harleen is limited to 10 min of standing and gait at this time due to increased right sided hip pain Airplane Tester Goal (LTG) Harleen is able to increase her standing time to 20 min and is able to increase her walking distance to 1/2 mile or more LTG Duration 8 weeks weakness Impairment Harleen presents with weakness of the right tibialis anterior and hip and musculature Short Term Goal (STG) Harleen is educated on a home strenghtening program Airplane Tester Goal (LTG) Harleen demonstrates improved strength of the tibialis anterior and hip abduction/ER on the Right with MMT LTG Duration 8 Hip ROM Impairment Pt with limited R hip mobility secondary to pain. She is limited to 100 degrees hip flexion Short Term Goal (STG) Harleen is educated on a home stretching program for her hips STG Duration 4 weeks [facility] Goal (LTG) pt has improved hip mobility into hip extension and is able to improve hip flexion to 110 degrees in supine Assessment Summary Assessment Harleen reports feeling good end of session, able to ambulate with heel toe pattern decreased scuffing of right foot, comments focusing on just heel toe vs lateral side of foot during ambulation improved ability to hold the pattern. Harleen was able to perform hip flexor stretch with right LE off bed today on first trial, required assist/ modification on second trial, excessive rectus stiffness noted and may be contributing to gait deviations right LE. Physical Therapy Plan Frequency and Duration Frequency of Treatment 2x/Week Duration of treatment (weeks) 8 Plan of Care Start Date 05/02/23 Plan of Care End Date 06/27/23 Therapeutic Interventions Therapeutic Interventions Balance Training,Gait Training ,Home Exercise Program,Manual Therapy,Neuromuscular Re- education,Patient/Caregiver Education,Self-Care/Home Management,Therapeutic Exercises Next Visit Focus/Plan Next Note Type Treatment Note Next Visit Plan Gait training, heel strike and strengthening for improved DF strength on the right foot. Work on core stability/ abdominal bracing with LE extension and hip strengthening/standing hip extension to stalin possibly with abdominal bracing
--- NOTE | 2023-05-23 12:19 | PT.OTN ---
Current Diagnoses Pain in right hip (05/23/23) Stiffness of unspecified hip, not elsewhere classified (05/23/23) Other specified joint disorders, unspecified hip (05/23/23) Spondylolisthesis, lumbosacral region (05/23/23) Spinal stenosis, lumbar region without neurogenic claudication (05/23/23) Physical Therapy Treatment Note PT-OP-A Visit Information Start: 05/02/23 08:14 Freq: Status: Active Protocol: Document 05/23/23 09:17 AB (Rec: 05/23/23 12:19 AB [id number]) Out-Patient Physical Therapy Visit Information Visit Information Visit Type Treatment Note Visit Note Access Code [email or web address] Visit Start Time 10:33 Visit Stop Time 11:16 Visit Number 6 Number of NUCLEAR UNIT OPERATOR Visits 1 Evaluation Information Evaluation Date 05/02/23 Precautions Precautions pt is still under her lumbar fusion precautions of no lifting, bending, or twisting PT-OP-B Current Condition Start: 05/02/23 08:14 Freq: Status: Active Protocol: Document 05/02/23 11:15 AMH (Rec: 05/02/23 10:10 AMH [id number]) Current Condition History of Current Condition Onset Date 02/15/23 Current Complaints Right sided anterior hip pain History of Current Condition 72 year old female s/p L5-S1 postero-lateral and posterior interbody fusion on 02/15/23, pt had a follow up appt with her doctor and she was given the go ahead to get back in the pool so that has felt good to her. She reports her complaints prior to surgery were of right sided anterior hip pain. Harleen notes she has a collapsed right arch which has caused a lot of pain on and off over the years. Last spring her right hip started hurting constantly and she was limping . She had hip xrays taken and a MRI of her spine and saw Dr Lena Canseco reports she was advised to have a fusion due to the nerve damage in her spine was causing the hip pain . She notes she wasn't having back pain at the time but was experiencing some radicular symptoms into her anterior right thigh. Since the surgery her right hip pain has not changed. She did feel that resting it helped her but once she has gotten back to walking she is feeling the anterior pain again. She notes she is not limping as much but she feels very weak since surgery. She finds her hips roll out into ER with sleeping and she will wake up with anterior/groin pain in the am. Her radiating nerve pain has decreased overall since surgery. She does have a walker but she is walking on her own in the house. She comes into PT today without a walker or cane. She reports feeling very tight in her right hip as compared to her left. She is able to go up and down the stairs in her house leading with her left leg. She has another follow up with Dr. Honeycutt next week Prior Treatments and Tests Xray taken in August of 2022 shows bilateral hip arthritis most severe on the right Treatment Goals Patient/Caregiver Goals Harleen would like to improve her walking ability and walk without hip pain. She would like to improve overall core and hip strength Prior Functional Status Baseline Function- ADL's Needs Assist Baseline Function- Mobility Needs Assist Baseline Function- Gait pt had right sided hip pain with gait prior to surgery Current Functional Impairments (Reported) Functional Limitations- ADL's limited in ADL's that require bending and lifting and twisting due to fusion precautions Functional Limitations- Mobility/Gait pt is currently limited to standing and ambulating of 10 min or less PT-OP-C Subjective Start: 05/02/23 08:14 Freq: Status: Active Protocol: Document 05/23/23 09:17 AB (Rec: 05/23/23 12:19 AB [id number]) OP-PT Subjective Patient Comments Patient Comments Patient reports increased pain post walking 1/2 block and walking around in a store. PT-OP-G Mobility & Gait Start: 05/02/23 14:11 Freq: Status: Active Protocol: Document 05/02/23 11:15 AMH (Rec: 05/02/23 14:14 AMH [id number]) OP Mobility Evaluation Bed Mobility Rolling pt demonstrates log rolling technique for transfers in and out of bed Ind Supine to and from Sit Ind Transfers Sit to Stand uses hands with sit-stand OP Gait Assessment Gait Gait Assistance Required: Standby Assistance Distance (Feet) 300 Able to Maintain Weight Bearing Status Yes During Gait Factors Limiting Gait Function Factors Limiting Gait Function Decreased Strength,Limited Range of Motion,Pain Comments Gait Comments Harleen has a walker for community ambulation however she did not have it with her today. She also has walking sticks that she uses. Harleen ambulates with the right LE ER , she lacks heel strike for push of and presents with a small amount of toe drag which causes her to lose her balance. PT-OP-K Range of Motion Start: 05/02/23 08:14 Freq: Status: Active Protocol: Document 05/02/23 11:15 AMH (Rec: 05/02/23 14:25 AMH [id number]) Hip Goniometric Range of Motion Hip right Hip ROM WFL No Testing Position Supine Flexion w/Knee Flexed 100 Straight Leg Raise 45 Extension 0 Abduction 15 Internal Rotation 5 External Rotation 20 Comments pt lacks hip extension and is tight in the iliopsoas and quads on the right, she has pain in the anterior hip with hip flexion, IR is very limited Hip ROM Limitations Hip ROM Limitations Soft Tissue Tightness,Bony Restriction,Pain Ankle and Foot Goniometric Range of Motion Ankle and Foot Right Ankle/Foot ROM WFL No Testing Position Supine Dorsiflexion with Knee Extended 4 Ankle and Foot ROM Limitations ROM Limitations Soft Tissue Tightness,Muscle Weakness Comments pt presents with tightness in the calf musculature limiting ankle DF as well as decreased strength of Tibialis anterior on the right PT-OP-M Strength Start: 05/02/23 14:11 Freq: Status: Active Protocol: Document 05/02/23 11:15 AMH (Rec: 05/02/23 14:25 AMH [id number]) Hip Strength Hip Manual Muscle Testing Right Flexion (L2) 3 Fair Extension (S1) 3 Fair Abduction 3 Fair External Rotation 3 Fair Comments pain with resisted ER and hip flexion on the right Ankle/Foot Strength Ankle and Foot Manual Muscle Testing Right Dorsiflexion (L4) 3+ Fair+ Plantarflexion (S1) 4 Good PT-OP-Q Treatments Start: 05/02/23 08:14 Freq: Status: Active Protocol: Document 05/23/23 09:17 AB (Rec: 05/23/23 12:19 AB [id number]) Therapeutic Exercises Supine Exercises breathing from diaphragm in modified restorative pose Reps/Minutes one min Comments verbal cues abdominal bracing with LE extension Reps/Minutes X10 Comments VC to extend only as far as able without ant pelvic tilt hip flexor stretch Supine Exercise Name edge of bed stretch modified to on bed with left LE elevated on bolster Side bilateral Reps/Minutes 40 to 60 seconds X 2 Comments VC for breathing from diaphragm Sitting Exercises seated hip abduction with band Side bilateral Equipment Used levle 4 blue band Reps/Minutes one minute hold and 2X10 Standing Exercises standing hip extension Standing Exercise Name AROM with UE's resting on counter Reps/Minutes X10 Comments VC to perform in pain free range 2 pillows on mat at counter height Manual Therapy Treatment Soft Tissue Mobilization right hip flexor at groin Body Location also into quad this session Mobilization Type Cross-Friction,Rolling Intensity/Depth Moderate Body Position Hooklying Comments Monitored for pain, performed prior to stretch Self-Care/Home Management Treatment Activities Self-Care/Home Management Activities mod restorative pose with breathing added to HEP as well as standing hip extension. PT-OP-T Assessment and Plan Start: 05/02/23 08:14 Freq: Status: Active Protocol: Document 05/23/23 09:17 AB (Rec: 05/23/23 12:19 AB [id number]) Physical Therapy Assessment Goals Modified oswestry low back pain disability questionaire Impairment pt scores 26 on the modified oswestry questionnaire Casting Wheel Operator Goal (LTG) Harleen is able to improve her score to 20% or better LTG Duration 12 weeks gait Impairment Harleen is limited to 10 min of standing and gait at this time due to increased right sided hip pain Casting Wheel Operator Goal (LTG) Harleen is able to increase her standing time to 20 min and is able to increase her walking distance to 1/2 mile or more LTG Duration 8 weeks weakness Impairment Harleen presents with weakness of the right tibialis anterior and hip and musculature Short Term Goal (STG) Harleen is educated on a home strenghtening program Casting Wheel Operator Goal (LTG) Harleen demonstrates improved strength of the tibialis anterior and hip abduction/ER on the Right with MMT LTG Duration 8 Hip ROM Impairment Pt with limited R hip mobility secondary to pain. She is limited to 100 degrees hip flexion Short Term Goal (STG) Harleen is educated on a home stretching program for her hips STG Duration 4 weeks Nursing Home Goal (LTG) pt has improved hip mobility into hip extension and is able to improve hip flexion to 110 degrees in supine Assessment Summary Assessment Patient reports the hip feels looser end of session. Increased hip pain with limited ambulation and standing persists. Physical Therapy Plan Frequency and Duration Frequency of Treatment 2x/Week Duration of treatment (weeks) 8 Plan of Care Start Date 05/02/23 Plan of Care End Date 06/27/23 Next Visit Focus/Plan Next Note Type Treatment Note Next Visit Plan Gait training, heel strike and strengthening for improved DF strength on the right foot. Work on core stability and hip strengthening manual therapy, HEP review assess stalin to HEP
--- NOTE | 2023-05-26 09:47 | PT.OTN ---
Current Diagnoses Pain in right hip (05/26/23) Stiffness of unspecified hip, not elsewhere classified (05/26/23) Other specified joint disorders, unspecified hip (05/26/23) Spondylolisthesis, lumbosacral region (05/26/23) Spinal stenosis, lumbar region without neurogenic claudication (05/26/23) Physical Therapy Treatment Note PT-OP-A Visit Information Start: 05/02/23 08:14 Freq: Status: Active Protocol: Document 05/26/23 09:00 DCW (Rec: 05/26/23 09:47 DCW [id number]) Out-Patient Physical Therapy Visit Information Visit Information Visit Type Treatment Note Visit Start Time 09:00 Visit Stop Time 09:45 Visit Number 7 Number of PIERCING ARTIST Visits 0 Evaluation Information Evaluation Date 05/02/23 Precautions Precautions pt is still under her lumbar fusion precautions of no lifting, bending, or twisting PT-OP-B Current Condition Start: 05/02/23 08:14 Freq: Status: Active Protocol: Document 05/02/23 11:15 AMH (Rec: 05/02/23 10:10 AMH [id number]) Current Condition History of Current Condition Onset Date 02/15/23 Current Complaints Right sided anterior hip pain History of Current Condition 72 year old female s/p L5-S1 postero-lateral and posterior interbody fusion on 02/15/23, pt had a follow up appt with her doctor and she was given the go ahead to get back in the pool so that has felt good to her. She reports her complaints prior to surgery were of right sided anterior hip pain. Harleen notes she has a collapsed right arch which has caused a lot of pain on and off over the years. Last spring her right hip started hurting constantly and she was limping . She had hip xrays taken and a MRI of her spine and saw Dr Lena Canseco reports she was advised to have a fusion due to the nerve damage in her spine was causing the hip pain . She notes she wasn't having back pain at the time but was experiencing some radicular symptoms into her anterior right thigh. Since the surgery her right hip pain has not changed. She did feel that resting it helped her but once she has gotten back to walking she is feeling the anterior pain again. She notes she is not limping as much but she feels very weak since surgery. She finds her hips roll out into ER with sleeping and she will wake up with anterior/groin pain in the am. Her radiating nerve pain has decreased overall since surgery. She does have a walker but she is walking on her own in the house. She comes into PT today without a walker or cane. She reports feeling very tight in her right hip as compared to her left. She is able to go up and down the stairs in her house leading with her left leg. She has another follow up with Dr. Honeycutt next week Prior Treatments and Tests Xray taken in August of 2022 shows bilateral hip arthritis most severe on the right Treatment Goals Patient/Caregiver Goals Harleen would like to improve her walking ability and walk without hip pain. She would like to improve overall core and hip strength Prior Functional Status Baseline Function- ADL's Needs Assist Baseline Function- Mobility Needs Assist Baseline Function- Gait pt had right sided hip pain with gait prior to surgery Current Functional Impairments (Reported) Functional Limitations- ADL's limited in ADL's that require bending and lifting and twisting due to fusion precautions Functional Limitations- Mobility/Gait pt is currently limited to standing and ambulating of 10 min or less PT-OP-C Subjective Start: 05/02/23 08:14 Freq: Status: Active Protocol: Document 05/26/23 09:00 DCW (Rec: 05/26/23 09:47 DCW [id number]) OP-PT Subjective Patient Comments Patient Comments I don't know that I feel huge differences, but I'm working on it. PT-OP-G Mobility & Gait Start: 05/02/23 14:11 Freq: Status: Active Protocol: Document 05/02/23 11:15 AMH (Rec: 05/02/23 14:14 AMH [id number]) OP Mobility Evaluation Bed Mobility Rolling pt demonstrates log rolling technique for transfers in and out of bed Ind Supine to and from Sit Ind Transfers Sit to Stand uses hands with sit-stand OP Gait Assessment Gait Gait Assistance Required: Standby Assistance Distance (Feet) 300 Able to Maintain Weight Bearing Status Yes During Gait Factors Limiting Gait Function Factors Limiting Gait Function Decreased Strength,Limited Range of Motion,Pain Comments Gait Comments Harleen has a walker for community ambulation however she did not have it with her today. She also has walking sticks that she uses. Harleen ambulates with the right LE ER , she lacks heel strike for push of and presents with a small amount of toe drag which causes her to lose her balance. PT-OP-K Range of Motion Start: 05/02/23 08:14 Freq: Status: Active Protocol: Document 05/02/23 11:15 AMH (Rec: 05/02/23 14:25 [facility] [id number]) Hip Goniometric Range of Motion Hip right Hip ROM WFL No Testing Position Supine Flexion w/Knee Flexed 100 Straight Leg Raise 45 Extension 0 Abduction 15 Internal Rotation 5 External Rotation 20 Comments pt lacks hip extension and is tight in the iliopsoas and quads on the right, she has pain in the anterior hip with hip flexion, IR is very limited Hip ROM Limitations Hip ROM Limitations Soft Tissue Tightness,Bony Restriction,Pain Ankle and Foot Goniometric Range of Motion Ankle and Foot Right Ankle/Foot ROM WFL No Testing Position Supine Dorsiflexion with Knee Extended 4 Ankle and Foot ROM Limitations ROM Limitations Soft Tissue Tightness,Muscle Weakness Comments pt presents with tightness in the calf musculature limiting ankle DF as well as decreased strength of Tibialis anterior on the right PT-OP-M Strength Start: 05/02/23 14:11 Freq: Status: Active Protocol: Document 05/02/23 11:15 AMH (Rec: 05/02/23 14:25 [facility] [id number]) Hip Strength Hip Manual Muscle Testing Right Flexion (L2) 3 Fair Extension (S1) 3 Fair Abduction 3 Fair External Rotation 3 Fair Comments pain with resisted ER and hip flexion on the right Ankle/Foot Strength Ankle and Foot Manual Muscle Testing Right Dorsiflexion (L4) 3+ Fair+ Plantarflexion (S1) 4 Good PT-OP-Q Treatments Start: 05/02/23 08:14 Freq: Status: Active Protocol: Document 05/26/23 09:00 DCW (Rec: 05/26/23 09:47 DCW [id number]) Gym Equipment Shuttle Balance WBOS, NBOS Details Red Comments WBOS, Staggered Therapeutic Exercises Supine Exercises Piriformis Supine Exercise Name Knee to opposite shoulder Side bilateral Hamstring Supine Exercise Name HS stretch Side bilateral Standing Exercises Pallof Press Standing Exercise Name Pallof Press Side bilateral Resistance Green Reps/Minutes 1X10 Other Exercises Resisted Ambulation Other Exercise Name Resisted side-stepping Resistance Green loop Toe-taps Other Exercise Name Toe-taps Side bilateral Resistance 5# Equipment Used 6 step Manual Therapy Treatment Soft Tissue Mobilization right hip flexor at groin Body Location R hip flexor/quad Mobilization Type Cross-Friction,Rolling Intensity/Depth Moderate Body Position Hooklying Comments Monitored for pain, performed prior to stretch right lumbar paraspinals Mobilization Type Sustained Pressure Intensity/Depth Superficial Body Position Sidelying Comments monitored for pain right piriformis Mobilization Type Cross-Friction,Rolling Intensity/Depth Moderate Body Position Sidelying Comments monitored for pain PT-OP-T Assessment and Plan Start: 05/02/23 08:14 Freq: Status: Active Protocol: Document 05/26/23 09:00 DCW (Rec: 05/26/23 09:47 DCW [id number]) Physical Therapy Assessment Goals Modified oswestry low back pain disability questionaire Impairment pt scores 26 on the modified oswestry questionnaire [employer] Clerk Goal (LTG) Harleen is able to improve her score to 20% or better LTG Duration 12 weeks gait Impairment Harleen is limited to 10 min of standing and gait at this time due to increased right sided hip pain Retirement Goal (LTG) Harleen is able to increase her standing time to 20 min and is able to increase her walking distance to 1/2 mile or more LTG Duration 8 weeks weakness Impairment Harleen presents with weakness of the right tibialis anterior and hip and musculature Short Term Goal (STG) Harleen is educated on a home strenghtening program [employer] Clerk Goal (LTG) Harleen demonstrates improved strength of the tibialis anterior and hip abduction/ER on the Right with MMT LTG Duration 8 Hip ROM Impairment Pt with limited R hip mobility secondary to pain. She is limited to 100 degrees hip flexion Short Term Goal (STG) Harleen is educated on a home stretching program for her hips STG Duration 4 weeks [employer] Clerk Goal (LTG) pt has improved hip mobility into hip extension and is able to improve hip flexion to 110 degrees in supine Assessment Summary Assessment Pt responding fairly well to STM and core/hip strengthening , but still seems to have regression between PT appointments. Discussed changes to piriformis stretch today, noted she is struggling with it at home. Reminder to hip hinge and decrease lateral pressure through knee. Physical Therapy Plan Frequency and Duration Frequency of Treatment 2x/Week Duration of treatment (weeks) 8 Plan of Care Start Date 05/02/23 Plan of Care End Date 06/27/23 Therapeutic Interventions Therapeutic Interventions Balance Training,Gait Training ,Home Exercise Program,Manual Therapy,Neuromuscular Re- education,Patient/Caregiver Education,Self-Care/Home Management,Therapeutic Exercises Next Visit Focus/Plan Next Note Type Treatment Note Next Visit Plan Gait training, heel strike and strengthening for improved DF strength on the right foot. Work on core stability/ abdominal bracing with LE extension and hip strengthening/standing hip extension to stalin possibly with abdominal bracing
--- NOTE | 2023-05-29 17:36 | PT.OTN ---
Current Diagnoses Pain in right hip (05/29/23) Stiffness of unspecified hip, not elsewhere classified (05/29/23) Other specified joint disorders, unspecified hip (05/29/23) Spondylolisthesis, lumbosacral region (05/29/23) Spinal stenosis, lumbar region without neurogenic claudication (05/29/23) Physical Therapy Treatment Note PT-OP-A Visit Information Start: 05/02/23 08:14 Freq: Status: Active Protocol: Document 05/29/23 16:45 DCW (Rec: 05/29/23 17:36 DCW [id number]) Out-Patient Physical Therapy Visit Information Visit Information Visit Type Treatment Note Visit Start Time 16:45 Visit Stop Time 17:30 Visit Number 8 Number of BILLING CUSTOMER SERVICE REPRESENTATIVE Visits 0 Evaluation Information Evaluation Date 05/02/23 Precautions Precautions pt is still under her lumbar fusion precautions of no lifting, bending, or twisting PT-OP-B Current Condition Start: 05/02/23 08:14 Freq: Status: Active Protocol: Document 05/02/23 11:15 AMH (Rec: 05/02/23 10:10 AMH [id number]) Current Condition History of Current Condition Onset Date 02/15/23 Current Complaints Right sided anterior hip pain History of Current Condition 72 year old female s/p L5-S1 postero-lateral and posterior interbody fusion on 02/15/23, pt had a follow up appt with her doctor and she was given the go ahead to get back in the pool so that has felt good to her. She reports her complaints prior to surgery were of right sided anterior hip pain. Harleen notes she has a collapsed right arch which has caused a lot of pain on and off over the years. Last spring her right hip started hurting constantly and she was limping . She had hip xrays taken and a MRI of her spine and saw Dr Lena Canseco reports she was advised to have a fusion due to the nerve damage in her spine was causing the hip pain . She notes she wasn't having back pain at the time but was experiencing some radicular symptoms into her anterior right thigh. Since the surgery her right hip pain has not changed. She did feel that resting it helped her but once she has gotten back to walking she is feeling the anterior pain again. She notes she is not limping as much but she feels very weak since surgery. She finds her hips roll out into ER with sleeping and she will wake up with anterior/groin pain in the am. Her radiating nerve pain has decreased overall since surgery. She does have a walker but she is walking on her own in the house. She comes into PT today without a walker or cane. She reports feeling very tight in her right hip as compared to her left. She is able to go up and down the stairs in her house leading with her left leg. She has another follow up with Dr. Honeycutt next week Prior Treatments and Tests Xray taken in August of 2022 shows bilateral hip arthritis most severe on the right Treatment Goals Patient/Caregiver Goals Harleen would like to improve her walking ability and walk without hip pain. She would like to improve overall core and hip strength Prior Functional Status Baseline Function- ADL's Needs Assist Baseline Function- Mobility Needs Assist Baseline Function- Gait pt had right sided hip pain with gait prior to surgery Current Functional Impairments (Reported) Functional Limitations- ADL's limited in ADL's that require bending and lifting and twisting due to fusion precautions Functional Limitations- Mobility/Gait pt is currently limited to standing and ambulating of 10 min or less PT-OP-C Subjective Start: 05/02/23 08:14 Freq: Status: Active Protocol: Document 05/29/23 16:45 DCW (Rec: 05/29/23 17:36 DCW [id number]) OP-PT Subjective Patient Comments Patient Comments Pt notes her back feels great, just still her hip and leg. PT-OP-G Mobility & Gait Start: 05/02/23 14:11 Freq: Status: Active Protocol: Document 05/02/23 11:15 AMH (Rec: 05/02/23 14:14 AMH [id number]) OP Mobility Evaluation Bed Mobility Rolling pt demonstrates log rolling technique for transfers in and out of bed Ind Supine to and from Sit Ind Transfers Sit to Stand uses hands with sit-stand OP Gait Assessment Gait Gait Assistance Required: Standby Assistance Distance (Feet) 300 Able to Maintain Weight Bearing Status Yes During Gait Factors Limiting Gait Function Factors Limiting Gait Function Decreased Strength,Limited Range of Motion,Pain Comments Gait Comments Harleen has a walker for community ambulation however she did not have it with her today. She also has walking sticks that she uses. Harleen ambulates with the right LE ER , she lacks heel strike for push of and presents with a small amount of toe drag which causes her to lose her balance. PT-OP-K Range of Motion Start: 05/02/23 08:14 Freq: Status: Active Protocol: Document 05/02/23 11:15 AMH (Rec: 05/02/23 14:25 [facility] [id number]) Hip Goniometric Range of Motion Hip right Hip ROM WFL No Testing Position Supine Flexion w/Knee Flexed 100 Straight Leg Raise 45 Extension 0 Abduction 15 Internal Rotation 5 External Rotation 20 Comments pt lacks hip extension and is tight in the iliopsoas and quads on the right, she has pain in the anterior hip with hip flexion, IR is very limited Hip ROM Limitations Hip ROM Limitations Soft Tissue Tightness,Bony Restriction,Pain Ankle and Foot Goniometric Range of Motion Ankle and Foot Right Ankle/Foot ROM WFL No Testing Position Supine Dorsiflexion with Knee Extended 4 Ankle and Foot ROM Limitations ROM Limitations Soft Tissue Tightness,Muscle Weakness Comments pt presents with tightness in the calf musculature limiting ankle DF as well as decreased strength of Tibialis anterior on the right PT-OP-M Strength Start: 05/02/23 14:11 Freq: Status: Active Protocol: Document 05/02/23 11:15 AMH (Rec: 05/02/23 14:25 [facility] [id number]) Hip Strength Hip Manual Muscle Testing Right Flexion (L2) 3 Fair Extension (S1) 3 Fair Abduction 3 Fair External Rotation 3 Fair Comments pain with resisted ER and hip flexion on the right Ankle/Foot Strength Ankle and Foot Manual Muscle Testing Right Dorsiflexion (L4) 3+ Fair+ Plantarflexion (S1) 4 Good PT-OP-Q Treatments Start: 05/02/23 08:14 Freq: Status: Active Protocol: Document 05/29/23 16:45 DCW (Rec: 05/29/23 17:36 DCW [id number]) Gym Equipment Shuttle Balance WBOS, NBOS Details Red Comments WBOS, Staggered Therapeutic Ball Hip Flexion Exercise Details Resisted hip/knee flexion Ball Size/Color Blue - 45 cm Lv 1 T-band Bridging Exercise Details Bridging /c feet on ball Ball Size/Color Blue - 45 cm Therapeutic Exercises Supine Exercises ITB Supine Exercise Name ITB stretch /c strap Side bilateral Manual Therapy Treatment Soft Tissue Mobilization right hip flexor at groin Body Location R hip flexor/quad Mobilization Type Cross-Friction,Rolling Intensity/Depth Moderate Body Position Hooklying Comments Monitored for pain, performed prior to stretch right lumbar paraspinals Mobilization Type Sustained Pressure Intensity/Depth Superficial Body Position Sidelying Comments monitored for pain right piriformis Mobilization Type Cross-Friction,Rolling Intensity/Depth Moderate Body Position Sidelying Comments monitored for pain PT-OP-T Assessment and Plan Start: 05/02/23 08:14 Freq: Status: Active Protocol: Document 05/29/23 16:45 DCW (Rec: 05/29/23 17:36 DCW [id number]) Physical Therapy Assessment Goals Modified oswestry low back pain disability questionaire Impairment pt scores 26 on the modified oswestry questionnaire Electrician Goal (LTG) Harleen is able to improve her score to 20% or better LTG Duration 12 weeks gait Impairment Harleen is limited to 10 min of standing and gait at this time due to increased right sided hip pain Electrician Goal (LTG) Harleen is able to increase her standing time to 20 min and is able to increase her walking distance to 1/2 mile or more LTG Duration 8 weeks weakness Impairment Harleen presents with weakness of the right tibialis anterior and hip and musculature Short Term Goal (STG) Harleen is educated on a home strenghtening program [facility] Goal (LTG) Harleen demonstrates improved strength of the tibialis anterior and hip abduction/ER on the Right with MMT LTG Duration 8 Hip ROM Impairment Pt with limited R hip mobility secondary to pain. She is limited to 100 degrees hip flexion Short Term Goal (STG) Harleen is educated on a home stretching program for her hips STG Duration 4 weeks Electrician Goal (LTG) pt has improved hip mobility into hip extension and is able to improve hip flexion to 110 degrees in supine Assessment Summary Assessment Pt continues to improve s/p lumbar fusion, however right hip pain is biggest limiting factor at this time. Continue to focus on improving core strength, as well as increasing functional mobility of right hip. Physical Therapy Plan Frequency and Duration Frequency of Treatment 2x/Week Duration of treatment (weeks) 8 Plan of Care Start Date 05/02/23 Plan of Care End Date 06/27/23 Therapeutic Interventions Therapeutic Interventions Balance Training,Gait Training ,Home Exercise Program,Manual Therapy,Neuromuscular Re- education,Patient/Caregiver Education,Self-Care/Home Management,Therapeutic Exercises Next Visit Focus/Plan Next Note Type Treatment Note Next Visit Plan Gait training, heel strike and strengthening for improved DF strength on the right foot. Work on core stability/ abdominal bracing with LE extension and hip strengthening/standing hip extension to stalin possibly with abdominal bracing
--- NOTE | 2023-05-31 12:51 | PT.OTN ---
Current Diagnoses Pain in right hip (05/31/23) Stiffness of unspecified hip, not elsewhere classified (05/31/23) Other specified joint disorders, unspecified hip (05/31/23) Spondylolisthesis, lumbosacral region (05/31/23) Spinal stenosis, lumbar region without neurogenic claudication (05/31/23) Physical Therapy Treatment Note PT-OP-A Visit Information Start: 05/02/23 08:14 Freq: Status: Active Protocol: Document 05/31/23 08:07 AB (Rec: 05/31/23 10:30 AB [id number]) Out-Patient Physical Therapy Visit Information Visit Information Visit Type Treatment Note Visit Note Access Code [email or web address] Visit Start Time 09:48 Visit Stop Time 10:30 Visit Number 9 Number of NEWS PRODUCER Visits 1 Evaluation Information Evaluation Date 05/02/23 Precautions Precautions pt is still under her lumbar fusion precautions of no lifting, bending, or twisting PT-OP-B Current Condition Start: 05/02/23 08:14 Freq: Status: Active Protocol: Document 05/02/23 11:15 AMH (Rec: 05/02/23 10:10 AMH [id number]) Current Condition History of Current Condition Onset Date 02/15/23 Current Complaints Right sided anterior hip pain History of Current Condition 72 year old female s/p L5-S1 postero-lateral and posterior interbody fusion on 02/15/23, pt had a follow up appt with her doctor and she was given the go ahead to get back in the pool so that has felt good to her. She reports her complaints prior to surgery were of right sided anterior hip pain. Harleen notes she has a collapsed right arch which has caused a lot of pain on and off over the years. Last spring her right hip started hurting constantly and she was limping . She had hip xrays taken and a MRI of her spine and saw Dr Lena Canseco reports she was advised to have a fusion due to the nerve damage in her spine was causing the hip pain . She notes she wasn't having back pain at the time but was experiencing some radicular symptoms into her anterior right thigh. Since the surgery her right hip pain has not changed. She did feel that resting it helped her but once she has gotten back to walking she is feeling the anterior pain again. She notes she is not limping as much but she feels very weak since surgery. She finds her hips roll out into ER with sleeping and she will wake up with anterior/groin pain in the am. Her radiating nerve pain has decreased overall since surgery. She does have a walker but she is walking on her own in the house. She comes into PT today without a walker or cane. She reports feeling very tight in her right hip as compared to her left. She is able to go up and down the stairs in her house leading with her left leg. She has another follow up with Dr. Honeycutt next week Prior Treatments and Tests Xray taken in August of 2022 shows bilateral hip arthritis most severe on the right Treatment Goals Patient/Caregiver Goals Harleen would like to improve her walking ability and walk without hip pain. She would like to improve overall core and hip strength Prior Functional Status Baseline Function- ADL's Needs Assist Baseline Function- Mobility Needs Assist Baseline Function- Gait pt had right sided hip pain with gait prior to surgery Current Functional Impairments (Reported) Functional Limitations- ADL's limited in ADL's that require bending and lifting and twisting due to fusion precautions Functional Limitations- Mobility/Gait pt is currently limited to standing and ambulating of 10 min or less PT-OP-C Subjective Start: 05/02/23 08:14 Freq: Status: Active Protocol: Document 05/31/23 08:07 AB (Rec: 05/31/23 10:30 AB [id number]) OP-PT Subjective Patient Comments Patient Comments Patient reports yesterday, comments walking was better, feels right hip may be a little stronger. Harleen reports she went to the pool and did the knee to chest exercise today. Patient reports she is not yet back to tolerating previous level of walking, ability to walk 30 minutes without pain or assistance. PT-OP-G Mobility & Gait Start: 05/02/23 14:11 Freq: Status: Active Protocol: Document 05/02/23 11:15 AMH (Rec: 05/02/23 14:14 AMH [id number]) OP Mobility Evaluation Bed Mobility Rolling pt demonstrates log rolling technique for transfers in and out of bed Ind Supine to and from Sit Ind Transfers Sit to Stand uses hands with sit-stand OP Gait Assessment Gait Gait Assistance Required: Standby Assistance Distance (Feet) 300 Able to Maintain Weight Bearing Status Yes During Gait Factors Limiting Gait Function Factors Limiting Gait Function Decreased Strength,Limited Range of Motion,Pain Comments Gait Comments Harleen has a walker for community ambulation however she did not have it with her today. She also has walking sticks that she uses. Harleen ambulates with the right LE ER , she lacks heel strike for push of and presents with a small amount of toe drag which causes her to lose her balance. PT-OP-K Range of Motion Start: 05/02/23 08:14 Freq: Status: Active Protocol: Document 05/02/23 11:15 AMH (Rec: 05/02/23 14:25 AMH [id number]) Hip Goniometric Range of Motion Hip right Hip ROM WFL No Testing Position Supine Flexion w/Knee Flexed 100 Straight Leg Raise 45 Extension 0 Abduction 15 Internal Rotation 5 External Rotation 20 Comments pt lacks hip extension and is tight in the iliopsoas and quads on the right, she has pain in the anterior hip with hip flexion, IR is very limited Hip ROM Limitations Hip ROM Limitations Soft Tissue Tightness,Bony Restriction,Pain Ankle and Foot Goniometric Range of Motion Ankle and Foot Right Ankle/Foot ROM WFL No Testing Position Supine Dorsiflexion with Knee Extended 4 Ankle and Foot ROM Limitations ROM Limitations Soft Tissue Tightness,Muscle Weakness Comments pt presents with tightness in the calf musculature limiting ankle DF as well as decreased strength of Tibialis anterior on the right PT-OP-M Strength Start: 05/02/23 14:11 Freq: Status: Active Protocol: Document 05/02/23 11:15 AMH (Rec: 05/02/23 14:25 AMH [id number]) Hip Strength Hip Manual Muscle Testing Right Flexion (L2) 3 Fair Extension (S1) 3 Fair Abduction 3 Fair External Rotation 3 Fair Comments pain with resisted ER and hip flexion on the right Ankle/Foot Strength Ankle and Foot Manual Muscle Testing Right Dorsiflexion (L4) 3+ Fair+ Plantarflexion (S1) 4 Good PT-OP-Q Treatments Start: 05/02/23 08:14 Freq: Status: Active Protocol: Document 05/31/23 08:07 AB (Rec: 05/31/23 10:30 AB [id number]) Therapeutic Exercises Supine Exercises piriformis stretch Side right Reps/Minutes X1 60 seconds figure 4 stretch Reps/Minutes X1 60 seconds hip flexor stretch Supine Exercise Name edge of bed stretch modified to on bed with left LE elevated on bolster Side right Reps/Minutes 60 seconds X 1 Comments VC for breathing from diaphragm Standing Exercises standing hip extension Standing Exercise Name AROM with UE's resting on counter Reps/Minutes X10 Comments Verbal cues for abdominal bracing Hip Extension Comments VC for abdominal bracing Manual Therapy Treatment Soft Tissue Mobilization right hip flexor at groin Body Location R hip flexor/quad Mobilization Type Cross-Friction,Rolling Intensity/Depth Moderate Body Position Hooklying Comments Monitored for pain, performed prior to stretch right lumbar paraspinals Body Location also to scar tissue bilaterally this session Mobilization Type Sustained Pressure Intensity/Depth Superficial Body Position Sidelying Comments monitored for pain right piriformis Mobilization Type Cross-Friction,Rolling Intensity/Depth Moderate Body Position Sidelying Comments monitored for pain Manual Techniques MET for right AI left PI and pubic shot gun Reps/Duration 6X6 each PT-OP-T Assessment and Plan Start: 05/02/23 08:14 Freq: Status: Active Protocol: Document 05/31/23 08:07 AB (Rec: 05/31/23 10:30 AB [id number]) Physical Therapy Assessment Goals Modified oswestry low back pain disability questionaire Impairment pt scores 26 on the modified oswestry questionnaire Senior Care Goal (LTG) Harleen is able to improve her score to 20% or better LTG Duration 12 weeks gait Impairment Harleen is limited to 10 min of standing and gait at this time due to increased right sided hip pain Senior Care Goal (LTG) Harleen is able to increase her standing time to 20 min and is able to increase her walking distance to 1/2 mile or more LTG Duration 8 weeks weakness Impairment Harleen presents with weakness of the right tibialis anterior and hip and musculature Short Term Goal (STG) Harleen is educated on a home strenghtening program Senior Care Goal (LTG) Harleen demonstrates improved strength of the tibialis anterior and hip abduction/ER on the Right with MMT LTG Duration 8 Hip ROM Impairment Pt with limited R hip mobility secondary to pain. She is limited to 100 degrees hip flexion Short Term Goal (STG) Harleen is educated on a home stretching program for her hips STG Duration 4 weeks Senior Care Goal (LTG) pt has improved hip mobility into hip extension and is able to improve hip flexion to 110 degrees in supine Assessment Summary Assessment Patient reports she might feel better end of session, cannot tell yet. Physical Therapy Plan Frequency and Duration Frequency of Treatment 2x/Week Duration of treatment (weeks) 8 Plan of Care Start Date 05/02/23 Plan of Care End Date 06/27/23 Next Visit Focus/Plan Next Note Type Progress Note Next Visit Plan Review pallof press/ add to HEP, assess stalin to MET prev session, hip adductor stretch trial, sit to stand with band to HEP, increase resistance band for HEP Gait training, heel strike and strengthening for improved DF strength on the right foot. Work on core stability/ abdominal
--- NOTE | 2023-06-05 16:00 | PT.OTN ---
Current Diagnoses Pain in right hip (06/05/23) Stiffness of unspecified hip, not elsewhere classified (06/05/23) Other specified joint disorders, unspecified hip (06/05/23) Spondylolisthesis, lumbosacral region (06/05/23) Spinal stenosis, lumbar region without neurogenic claudication (06/05/23) Physical Therapy Treatment Note PT-OP-A Visit Information Start: 05/02/23 08:14 Freq: Status: Active Protocol: Document 06/05/23 15:15 DCW (Rec: 06/05/23 15:59 DCW [id number]) Out-Patient Physical Therapy Visit Information Visit Information Visit Type Progress Note Visit Start Time 15:15 Visit Stop Time 16:00 Visit Number 10 Number of BUTCHER SUPERVISOR Visits 0 Evaluation Information Evaluation Date 05/02/23 Precautions Precautions pt is still under her lumbar fusion precautions of no lifting, bending, or twisting PT-OP-B Current Condition Start: 05/02/23 08:14 Freq: Status: Active Protocol: Document 05/02/23 11:15 AMH (Rec: 05/02/23 10:10 AMH [id number]) Current Condition History of Current Condition Onset Date 02/15/23 Current Complaints Right sided anterior hip pain History of Current Condition 72 year old female s/p L5-S1 postero-lateral and posterior interbody fusion on 02/15/23, pt had a follow up appt with her doctor and she was given the go ahead to get back in the pool so that has felt good to her. She reports her complaints prior to surgery were of right sided anterior hip pain. Harleen notes she has a collapsed right arch which has caused a lot of pain on and off over the years. Last spring her right hip started hurting constantly and she was limping . She had hip xrays taken and a MRI of her spine and saw Dr Lena Canseco reports she was advised to have a fusion due to the nerve damage in her spine was causing the hip pain . She notes she wasn't having back pain at the time but was experiencing some radicular symptoms into her anterior right thigh. Since the surgery her right hip pain has not changed. She did feel that resting it helped her but once she has gotten back to walking she is feeling the anterior pain again. She notes she is not limping as much but she feels very weak since surgery. She finds her hips roll out into ER with sleeping and she will wake up with anterior/groin pain in the am. Her radiating nerve pain has decreased overall since surgery. She does have a walker but she is walking on her own in the house. She comes into PT today without a walker or cane. She reports feeling very tight in her right hip as compared to her left. She is able to go up and down the stairs in her house leading with her left leg. She has another follow up with Dr. Honeycutt next week Prior Treatments and Tests Xray taken in August of 2022 shows bilateral hip arthritis most severe on the right Treatment Goals Patient/Caregiver Goals Harleen would like to improve her walking ability and walk without hip pain. She would like to improve overall core and hip strength Prior Functional Status Baseline Function- ADL's Needs Assist Baseline Function- Mobility Needs Assist Baseline Function- Gait pt had right sided hip pain with gait prior to surgery Current Functional Impairments (Reported) Functional Limitations- ADL's limited in ADL's that require bending and lifting and twisting due to fusion precautions Functional Limitations- Mobility/Gait pt is currently limited to standing and ambulating of 10 min or less PT-OP-C Subjective Start: 05/02/23 08:14 Freq: Status: Active Protocol: Document 06/05/23 15:15 DCW (Rec: 06/05/23 16:00 DCW [id number]) OP-PT Subjective Patient Comments Patient Comments Pt begins session feeling fairly well, notes she spent time in the pool earlier, has been pretty busy. PT-OP-G Mobility & Gait Start: 05/02/23 14:11 Freq: Status: Active Protocol: Document 05/02/23 11:15 AMH (Rec: 05/02/23 14:14 AMH [id number]) OP Mobility Evaluation Bed Mobility Rolling pt demonstrates log rolling technique for transfers in and out of bed Ind Supine to and from Sit Ind Transfers Sit to Stand uses hands with sit-stand OP Gait Assessment Gait Gait Assistance Required: Standby Assistance Distance (Feet) 300 Able to Maintain Weight Bearing Status Yes During Gait Factors Limiting Gait Function Factors Limiting Gait Function Decreased Strength,Limited Range of Motion,Pain Comments Gait Comments Harleen has a walker for community ambulation however she did not have it with her today. She also has walking sticks that she uses. Harleen ambulates with the right LE ER , she lacks heel strike for push of and presents with a small amount of toe drag which causes her to lose her balance. PT-OP-K Range of Motion Start: 05/02/23 08:14 Freq: Status: Active Protocol: Document 05/02/23 11:15 AMH (Rec: 05/02/23 14:25 [facility] [id number]) Hip Goniometric Range of Motion Hip right Hip ROM WFL No Testing Position Supine Flexion w/Knee Flexed 100 Straight Leg Raise 45 Extension 0 Abduction 15 Internal Rotation 5 External Rotation 20 Comments pt lacks hip extension and is tight in the iliopsoas and quads on the right, she has pain in the anterior hip with hip flexion, IR is very limited Hip ROM Limitations Hip ROM Limitations Soft Tissue Tightness,Bony Restriction,Pain Ankle and Foot Goniometric Range of Motion Ankle and Foot Right Ankle/Foot ROM WFL No Testing Position Supine Dorsiflexion with Knee Extended 4 Ankle and Foot ROM Limitations ROM Limitations Soft Tissue Tightness,Muscle Weakness Comments pt presents with tightness in the calf musculature limiting ankle DF as well as decreased strength of Tibialis anterior on the right PT-OP-M Strength Start: 05/02/23 14:11 Freq: Status: Active Protocol: Document 05/02/23 11:15 AMH (Rec: 05/02/23 14:25 [facility] [id number]) Hip Strength Hip Manual Muscle Testing Right Flexion (L2) 3 Fair Extension (S1) 3 Fair Abduction 3 Fair External Rotation 3 Fair Comments pain with resisted ER and hip flexion on the right Ankle/Foot Strength Ankle and Foot Manual Muscle Testing Right Dorsiflexion (L4) 3+ Fair+ Plantarflexion (S1) 4 Good PT-OP-Q Treatments Start: 05/02/23 08:14 Freq: Status: Active Protocol: Document 06/05/23 15:15 DCW (Rec: 06/05/23 15:59 DCW [id number]) Gym Equipment Shuttle Recovery Unilateral Squats Resistance 37# Shuttle Recovery Platform Stable Bilateral Squats Details B squats Resistance 75# Shuttle Recovery Platform Stable Shuttle Balance WBOS, NBOS Details Red Comments WBOS (EO/EC), Staggered, Lateral weight shift Manual Therapy Treatment Soft Tissue Mobilization right hip flexor at groin Body Location R hip flexor/quad Mobilization Type Cross-Friction,Rolling Intensity/Depth Moderate Body Position Hooklying Comments Monitored for pain, performed prior to stretch Manual Traction Lower Extremity Details R LE - long-axis Body Position Supine PT-OP-T Assessment and Plan Start: 05/02/23 08:14 Freq: Status: Active Protocol: Document 06/05/23 15:15 DCW (Rec: 06/05/23 15:59 DCW [id number]) Physical Therapy Assessment Goals Modified oswestry low back pain disability questionaire Impairment pt scores 26 on the modified oswestry questionnaire Residential Goal (LTG) Harleen is able to improve her score to 20% or better LTG Duration 12 weeks gait Impairment Harleen is limited to 10 min of standing and gait at this time due to increased right sided hip pain Residential Goal (LTG) Harleen is able to increase her standing time to 20 min and is able to increase her walking distance to 1/2 mile or more LTG Duration 8 weeks weakness Impairment Harleen presents with weakness of the right tibialis anterior and hip and musculature Short Term Goal (STG) Harleen is educated on a home strenghtening program STG Duration Met Financial Rep Goal (LTG) Harleen demonstrates improved strength of the tibialis anterior and hip abduction/ER on the Right with MMT LTG Duration 8 Hip ROM Impairment Pt with limited R hip mobility secondary to pain. She is limited to 100 degrees hip flexion Short Term Goal (STG) Harleen is educated on a home stretching program for her hips STG Duration Met Residential Goal (LTG) pt has improved hip mobility into hip extension and is able to improve hip flexion to 110 degrees in supine LTG Duration Met - 112 degrees R flexion Assessment Summary Assessment Following activity on Shuttle Balance, pt complained of feeling woozy, sat down for an extended rest break, and then became moderately nauseated. Recovered well and felt comfortable returning to activity. Is showing good progress overall, met right hip ROM goals Physical Therapy Plan Frequency and Duration Frequency of Treatment 2x/Week Duration of treatment (weeks) 8 Plan of Care Start Date 05/02/23 Plan of Care End Date 06/27/23 Therapeutic Interventions Therapeutic Interventions Balance Training,Gait Training ,Home Exercise Program,Manual Therapy,Neuromuscular Re- education,Patient/Caregiver Education,Self-Care/Home Management,Therapeutic Exercises Next Visit Focus/Plan Next Note Type Treatment Note Next Visit Plan Gait training, heel strike and strengthening for improved DF strength on the right foot. Work on core stability/ abdominal bracing with LE extension and hip strengthening/standing hip extension to stalin possibly with abdominal bracing
--- NOTE | 2023-06-07 16:02 | PT.OTN ---
Current Diagnoses Pain in right hip (06/07/23) Stiffness of unspecified hip, not elsewhere classified (06/07/23) Other specified joint disorders, unspecified hip (06/07/23) Spondylolisthesis, lumbosacral region (06/07/23) Spinal stenosis, lumbar region without neurogenic claudication (06/07/23) Physical Therapy Treatment Note PT-OP-A Visit Information Start: 05/02/23 08:14 Freq: Status: Active Protocol: Document 06/07/23 15:15 DCW (Rec: 06/07/23 16:02 DCW [id number]) Out-Patient Physical Therapy Visit Information Visit Information Visit Type Treatment Note Visit Start Time 15:15 Visit Stop Time 16:00 Visit Number 11 Number of DIE MAKER APPRENTICE Visits 0 Evaluation Information Evaluation Date 05/02/23 Precautions Precautions pt is still under her lumbar fusion precautions of no lifting, bending, or twisting PT-OP-B Current Condition Start: 05/02/23 08:14 Freq: Status: Active Protocol: Document 05/02/23 11:15 AMH (Rec: 05/02/23 10:10 AMH [id number]) Current Condition History of Current Condition Onset Date 02/15/23 Current Complaints Right sided anterior hip pain History of Current Condition 72 year old female s/p L5-S1 postero-lateral and posterior interbody fusion on 02/15/23, pt had a follow up appt with her doctor and she was given the go ahead to get back in the pool so that has felt good to her. She reports her complaints prior to surgery were of right sided anterior hip pain. Harleen notes she has a collapsed right arch which has caused a lot of pain on and off over the years. Last spring her right hip started hurting constantly and she was limping . She had hip xrays taken and a MRI of her spine and saw Dr Lena Canseco reports she was advised to have a fusion due to the nerve damage in her spine was causing the hip pain . She notes she wasn't having back pain at the time but was experiencing some radicular symptoms into her anterior right thigh. Since the surgery her right hip pain has not changed. She did feel that resting it helped her but once she has gotten back to walking she is feeling the anterior pain again. She notes she is not limping as much but she feels very weak since surgery. She finds her hips roll out into ER with sleeping and she will wake up with anterior/groin pain in the am. Her radiating nerve pain has decreased overall since surgery. She does have a walker but she is walking on her own in the house. She comes into PT today without a walker or cane. She reports feeling very tight in her right hip as compared to her left. She is able to go up and down the stairs in her house leading with her left leg. She has another follow up with Dr. Honeycutt next week Prior Treatments and Tests Xray taken in August of 2022 shows bilateral hip arthritis most severe on the right Treatment Goals Patient/Caregiver Goals Harleen would like to improve her walking ability and walk without hip pain. She would like to improve overall core and hip strength Prior Functional Status Baseline Function- ADL's Needs Assist Baseline Function- Mobility Needs Assist Baseline Function- Gait pt had right sided hip pain with gait prior to surgery Current Functional Impairments (Reported) Functional Limitations- ADL's limited in ADL's that require bending and lifting and twisting due to fusion precautions Functional Limitations- Mobility/Gait pt is currently limited to standing and ambulating of 10 min or less PT-OP-C Subjective Start: 05/02/23 08:14 Freq: Status: Active Protocol: Document 06/07/23 15:15 DCW (Rec: 06/07/23 16:02 DCW [id number]) OP-PT Subjective Patient Comments Patient Comments I'm doing a little better. I was here Monday, did some exercises yesterday, and woke up this morning thinking 'huh, I feel better.' PT-OP-G Mobility & Gait Start: 05/02/23 14:11 Freq: Status: Active Protocol: Document 05/02/23 11:15 AMH (Rec: 05/02/23 14:14 AMH [id number]) OP Mobility Evaluation Bed Mobility Rolling pt demonstrates log rolling technique for transfers in and out of bed Ind Supine to and from Sit Ind Transfers Sit to Stand uses hands with sit-stand OP Gait Assessment Gait Gait Assistance Required: Standby Assistance Distance (Feet) 300 Able to Maintain Weight Bearing Status Yes During Gait Factors Limiting Gait Function Factors Limiting Gait Function Decreased Strength,Limited Range of Motion,Pain Comments Gait Comments Harleen has a walker for community ambulation however she did not have it with her today. She also has walking sticks that she uses. Harleen ambulates with the right LE ER , she lacks heel strike for push of and presents with a small amount of toe drag which causes her to lose her balance. PT-OP-K Range of Motion Start: 05/02/23 08:14 Freq: Status: Active Protocol: Document 05/02/23 11:15 AMH (Rec: 05/02/23 14:25 [facility] [id number]) Hip Goniometric Range of Motion Hip right Hip ROM WFL No Testing Position Supine Flexion w/Knee Flexed 100 Straight Leg Raise 45 Extension 0 Abduction 15 Internal Rotation 5 External Rotation 20 Comments pt lacks hip extension and is tight in the iliopsoas and quads on the right, she has pain in the anterior hip with hip flexion, IR is very limited Hip ROM Limitations Hip ROM Limitations Soft Tissue Tightness,Bony Restriction,Pain Ankle and Foot Goniometric Range of Motion Ankle and Foot Right Ankle/Foot ROM WFL No Testing Position Supine Dorsiflexion with Knee Extended 4 Ankle and Foot ROM Limitations ROM Limitations Soft Tissue Tightness,Muscle Weakness Comments pt presents with tightness in the calf musculature limiting ankle DF as well as decreased strength of Tibialis anterior on the right PT-OP-M Strength Start: 05/02/23 14:11 Freq: Status: Active Protocol: Document 05/02/23 11:15 AMH (Rec: 05/02/23 14:25 [facility] [id number]) Hip Strength Hip Manual Muscle Testing Right Flexion (L2) 3 Fair Extension (S1) 3 Fair Abduction 3 Fair External Rotation 3 Fair Comments pain with resisted ER and hip flexion on the right Ankle/Foot Strength Ankle and Foot Manual Muscle Testing Right Dorsiflexion (L4) 3+ Fair+ Plantarflexion (S1) 4 Good PT-OP-Q Treatments Start: 05/02/23 08:14 Freq: Status: Active Protocol: Document 06/07/23 15:15 DCW (Rec: 06/07/23 16:02 DCW [id number]) Gym Equipment Shuttle Recovery Unilateral Squats Resistance 50# Shuttle Recovery Platform Stable Bilateral Squats Details B squats Resistance 75# Shuttle Recovery Platform Stable Shuttle Balance WBOS, NBOS Details Red Comments WBOS (EO/EC), Staggered, Lateral weight shift Therapeutic Exercises Supine Exercises ITB Supine Exercise Name ITB stretch /c strap Side bilateral Piriformis Supine Exercise Name Knee to opposite shoulder Side bilateral Hamstring Supine Exercise Name HS stretch Side bilateral hip flexor stretch Supine Exercise Name edge of bed stretch modified to on bed with left LE elevated on bolster Side right Reps/Minutes 60 seconds X 1 Manual Therapy Treatment Soft Tissue Mobilization right hip flexor at groin Body Location R hip flexor/quad Mobilization Type Cross-Friction,Rolling Intensity/Depth Moderate Body Position Hooklying Comments Monitored for pain, performed prior to stretch Manual Traction Lower Extremity Details R LE - long-axis Body Position Supine PT-OP-T Assessment and Plan Start: 05/02/23 08:14 Freq: Status: Active Protocol: Document 06/07/23 15:15 DCW (Rec: 06/07/23 16:02 DCW [id number]) Physical Therapy Assessment Goals Modified oswestry low back pain disability questionaire Impairment pt scores 26 on the modified oswestry questionnaire Pool Table Operator Goal (LTG) Harleen is able to improve her score to 20% or better LTG Duration 12 weeks gait Impairment Harleen is limited to 10 min of standing and gait at this time due to increased right sided hip pain Pool Table Operator Goal (LTG) Harleen is able to increase her standing time to 20 min and is able to increase her walking distance to 1/2 mile or more LTG Duration 8 weeks weakness Impairment Harleen presents with weakness of the right tibialis anterior and hip and musculature Short Term Goal (STG) Harleen is educated on a home strenghtening program STG Duration Met Pool Table Operator Goal (LTG) Harleen demonstrates improved strength of the tibialis anterior and hip abduction/ER on the Right with MMT LTG Duration 8 Hip ROM Impairment Pt with limited R hip mobility secondary to pain. She is limited to 100 degrees hip flexion Short Term Goal (STG) Harleen is educated on a home stretching program for her hips STG Duration Met Group Home Goal (LTG) pt has improved hip mobility into hip extension and is able to improve hip flexion to 110 degrees in supine LTG Duration Met - 112 degrees R flexion Assessment Summary Assessment Pt tolerated treatment much better today, feeling increased stretching and STM has been very helpful with decreasing hip pain. Has a short gap in scheduled PT due to scheduling difficulty, reports she will be doing more independent work in the pool. Physical Therapy Plan Frequency and Duration Frequency of Treatment 2x/Week Duration of treatment (weeks) 8 Plan of Care Start Date 05/02/23 Plan of Care End Date 06/27/23 Therapeutic Interventions Therapeutic Interventions Balance Training,Gait Training ,Home Exercise Program,Manual Therapy,Neuromuscular Re- education,Patient/Caregiver Education,Self-Care/Home Management,Therapeutic Exercises Next Visit Focus/Plan Next Note Type Treatment Note Next Visit Plan Gait training, heel strike and strengthening for improved DF strength on the right foot. Work on core stability/ abdominal bracing with LE extension and hip strengthening/standing hip extension to stalin possibly with abdominal bracing
--- NOTE | 2023-06-13 15:39 | PT.OTN ---
Current Diagnoses Pain in right hip (06/13/23) Stiffness of unspecified hip, not elsewhere classified (06/13/23) Other specified joint disorders, unspecified hip (06/13/23) Spondylolisthesis, lumbosacral region (06/13/23) Spinal stenosis, lumbar region without neurogenic claudication (06/13/23) Physical Therapy Treatment Note PT-OP-A Visit Information Start: 05/02/23 08:14 Freq: Status: Active Protocol: Document 06/13/23 13:13 SW (Rec: 06/13/23 14:33 SW [id number]) Out-Patient Physical Therapy Visit Information Visit Information Visit Type Treatment Note Visit Start Time 13:45 Visit Stop Time 14:25 Visit Number 12 Number of TROMPER Visits 1 Precautions Precautions pt is still under her lumbar fusion precautions of no lifting, bending, or twisting PT-OP-B Current Condition Start: 05/02/23 08:14 Freq: Status: Active Protocol: Document 05/02/23 11:15 AMH (Rec: 05/02/23 10:10 AMH [id number]) Current Condition History of Current Condition Onset Date 02/15/23 Current Complaints Right sided anterior hip pain History of Current Condition 72 year old female s/p L5-S1 postero-lateral and posterior interbody fusion on 02/15/23, pt had a follow up appt with her doctor and she was given the go ahead to get back in the pool so that has felt good to her. She reports her complaints prior to surgery were of right sided anterior hip pain. Harleen notes she has a collapsed right arch which has caused a lot of pain on and off over the years. Last spring her right hip started hurting constantly and she was limping . She had hip xrays taken and a MRI of her spine and saw Dr Lena Canseco reports she was advised to have a fusion due to the nerve damage in her spine was causing the hip pain . She notes she wasn't having back pain at the time but was experiencing some radicular symptoms into her anterior right thigh. Since the surgery her right hip pain has not changed. She did feel that resting it helped her but once she has gotten back to walking she is feeling the anterior pain again. She notes she is not limping as much but she feels very weak since surgery. She finds her hips roll out into ER with sleeping and she will wake up with anterior/groin pain in the am. Her radiating nerve pain has decreased overall since surgery. She does have a walker but she is walking on her own in the house. She comes into PT today without a walker or cane. She reports feeling very tight in her right hip as compared to her left. She is able to go up and down the stairs in her house leading with her left leg. She has another follow up with Dr. Honeycutt next week Prior Treatments and Tests Xray taken in August of 2022 shows bilateral hip arthritis most severe on the right Treatment Goals Patient/Caregiver Goals Harleen would like to improve her walking ability and walk without hip pain. She would like to improve overall core and hip strength Prior Functional Status Baseline Function- ADL's Needs Assist Baseline Function- Mobility Needs Assist Baseline Function- Gait pt had right sided hip pain with gait prior to surgery Current Functional Impairments (Reported) Functional Limitations- ADL's limited in ADL's that require bending and lifting and twisting due to fusion precautions Functional Limitations- Mobility/Gait pt is currently limited to standing and ambulating of 10 min or less PT-OP-C Subjective Start: 05/02/23 08:14 Freq: Status: Active Protocol: Document 06/13/23 13:13 SW (Rec: 06/13/23 14:33 SW [id number]) OP-PT Subjective Patient Comments Patient Comments Pt reports pain level 6-7/10. PT-OP-G Mobility & Gait Start: 05/02/23 14:11 Freq: Status: Active Protocol: Document 05/02/23 11:15 AMH (Rec: 05/02/23 14:14 AMH [id number]) OP Mobility Evaluation Bed Mobility Rolling pt demonstrates log rolling technique for transfers in and out of bed Ind Supine to and from Sit Ind Transfers Sit to Stand uses hands with sit-stand OP Gait Assessment Gait Gait Assistance Required: Standby Assistance Distance (Feet) 300 Able to Maintain Weight Bearing Status Yes During Gait Factors Limiting Gait Function Factors Limiting Gait Function Decreased Strength,Limited Range of Motion,Pain Comments Gait Comments Harleen has a walker for community ambulation however she did not have it with her today. She also has walking sticks that she uses. Harleen ambulates with the right LE ER , she lacks heel strike for push of and presents with a small amount of toe drag which causes her to lose her balance. PT-OP-K Range of Motion Start: 05/02/23 08:14 Freq: Status: Active Protocol: Document 05/02/23 11:15 AMH (Rec: 05/02/23 14:25 [facility] [id number]) Hip Goniometric Range of Motion Hip right Hip ROM WFL No Testing Position Supine Flexion w/Knee Flexed 100 Straight Leg Raise 45 Extension 0 Abduction 15 Internal Rotation 5 External Rotation 20 Comments pt lacks hip extension and is tight in the iliopsoas and quads on the right, she has pain in the anterior hip with hip flexion, IR is very limited Hip ROM Limitations Hip ROM Limitations Soft Tissue Tightness,Bony Restriction,Pain Ankle and Foot Goniometric Range of Motion Ankle and Foot Right Ankle/Foot ROM WFL No Testing Position Supine Dorsiflexion with Knee Extended 4 Ankle and Foot ROM Limitations ROM Limitations Soft Tissue Tightness,Muscle Weakness Comments pt presents with tightness in the calf musculature limiting ankle DF as well as decreased strength of Tibialis anterior on the right PT-OP-M Strength Start: 05/02/23 14:11 Freq: Status: Active Protocol: Document 05/02/23 11:15 [facility] (Rec: 05/02/23 14:25 [facility] [id number]) Hip Strength Hip Manual Muscle Testing Right Flexion (L2) 3 Fair Extension (S1) 3 Fair Abduction 3 Fair External Rotation 3 Fair Comments pain with resisted ER and hip flexion on the right Ankle/Foot Strength Ankle and Foot Manual Muscle Testing Right Dorsiflexion (L4) 3+ Fair+ Plantarflexion (S1) 4 Good PT-OP-Q Treatments Start: 05/02/23 08:14 Freq: Status: Active Protocol: Document 06/13/23 13:13 (Rec: 06/13/23 14:33 [id number]) Gym Equipment Shuttle Recovery Unilateral Squats Resistance 50# Shuttle Recovery Platform Stable Bilateral Squats Details B squats Resistance 75# (3 navy) Shuttle Recovery Platform Stable Therapeutic Exercises Supine Exercises ITB Supine Exercise Name ITB stretch /c strap Side bilateral Piriformis Supine Exercise Name Knee to opposite shoulder Side bilateral Hamstring Supine Exercise Name HS stretch Side bilateral Sitting Exercises DF Sitting Exercise Name DF Side right Resistance AROM> Level 1 TB Reps/Minutes 2 x 10 Comments cues to decrease hip compensation Manual Therapy Treatment Soft Tissue Mobilization right hip flexor at groin Body Location R hip flexor/quad Mobilization Type Cross-Friction,Rolling Intensity/Depth Moderate Body Position Hooklying Comments Monitored for pain, performed prior to stretch PT-OP-T Assessment and Plan Start: 05/02/23 08:14 Freq: Status: Active Protocol: Document 06/13/23 13:13 (Rec: 06/13/23 14:33 [id number]) Physical Therapy Assessment Goals Modified oswestry low back pain disability questionaire Impairment pt scores 26 on the modified oswestry questionnaire Wheel Cutter Goal (LTG) Harleen is able to improve her score to 20% or better LTG Duration 12 weeks gait Impairment Harleen is limited to 10 min of standing and gait at this time due to increased right sided hip pain Mcc Goal (LTG) Harleen is able to increase her standing time to 20 min and is able to increase her walking distance to 1/2 mile or more LTG Duration 8 weeks weakness Impairment Harleen presents with weakness of the right tibialis anterior and hip and musculature Short Term Goal (STG) Harleen is educated on a home strenghtening program STG Duration Met Mcc Goal (LTG) Harleen demonstrates improved strength of the tibialis anterior and hip abduction/ER on the Right with MMT LTG Duration 8 Hip ROM Impairment Pt with limited R hip mobility secondary to pain. She is limited to 100 degrees hip flexion Short Term Goal (STG) Harleen is educated on a home stretching program for her hips STG Duration Met Mcc Goal (LTG) pt has improved hip mobility into hip extension and is able to improve hip flexion to 110 degrees in supine LTG Duration Met - 112 degrees R flexion Assessment Summary Assessment Continued STM and stretching for patient pain and tissue relaxation. Initiated DF strength this session to increase tibialis anterior strength toward pt goals, required verbal cues for decreasing hip compensation, Issued HEP HO. Physical Therapy Plan Frequency and Duration Frequency of Treatment 2x/Week Duration of treatment (weeks) 8 Plan of Care Start Date 05/02/23 Plan of Care End Date 06/27/23 Therapeutic Interventions Therapeutic Interventions Balance Training,Gait Training ,Home Exercise Program,Manual Therapy,Neuromuscular Re- education,Patient/Caregiver Education,Self-Care/Home Management,Therapeutic Exercises Next Visit Focus/Plan Next Note Type Treatment Note Next Visit Plan Gait training, heel strike and strengthening for improved DF strength on the right foot. Work on core stability/ abdominal bracing with LE extension and hip strengthening/standing hip extension to stalin possibly with abdominal bracing
--- NOTE | 2023-06-20 14:40 | PT.OTN ---
Current Diagnoses Pain in right hip (06/20/23) Stiffness of unspecified hip, not elsewhere classified (06/20/23) Other specified joint disorders, unspecified hip (06/20/23) Spondylolisthesis, lumbosacral region (06/20/23) Spinal stenosis, lumbar region without neurogenic claudication (06/20/23) Physical Therapy Treatment Note PT-OP-A Visit Information Start: 05/02/23 08:14 Freq: Status: Active Protocol: Document 06/20/23 12:51 AB (Rec: 06/20/23 14:39 AB [id number]) Out-Patient Physical Therapy Visit Information Visit Information Visit Type Treatment Note Visit Note Access Code [email or web address] 06/06 for PN Visit Start Time 13:01 Visit Stop Time 13:45 Visit Number 13 Number of STUDENT NURSE Visits 1 Evaluation Information Evaluation Date 05/02/23 Precautions Precautions pt is still under her lumbar fusion precautions of no lifting, bending, or twisting. 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 PT-OP-B Current Condition Start: 05/02/23 08:14 Freq: Status: Active Protocol: Document 05/02/23 11:15 AMH (Rec: 05/02/23 10:10 AMH [id number]) Current Condition History of Current Condition Onset Date 02/15/23 Current Complaints Right sided anterior hip pain History of Current Condition 72 year old female s/p L5-S1 postero-lateral and posterior interbody fusion on 02/15/23, pt had a follow up appt with her doctor and she was given the go ahead to get back in the pool so that has felt good to her. She reports her complaints prior to surgery were of right sided anterior hip pain. Harleen notes she has a collapsed right arch which has caused a lot of pain on and off over the years. Last spring her right hip started hurting constantly and she was limping . She had hip xrays taken and a MRI of her spine and saw Dr Lena Canseco reports she was advised to have a fusion due to the nerve damage in her spine was causing the hip pain . She notes she wasn't having back pain at the time but was experiencing some radicular symptoms into her anterior right thigh. Since the surgery her right hip pain has not changed. She did feel that resting it helped her but once she has gotten back to walking she is feeling the anterior pain again. She notes she is not limping as much but she feels very weak since surgery. She finds her hips roll out into ER with sleeping and she will wake up with anterior/groin pain in the am. Her radiating nerve pain has decreased overall since surgery. She does have a walker but she is walking on her own in the house. She comes into PT today without a walker or cane. She reports feeling very tight in her right hip as compared to her left. She is able to go up and down the stairs in her house leading with her left leg. She has another follow up with Dr. Honeycutt next week Prior Treatments and Tests Xray taken in August of 2022 shows bilateral hip arthritis most severe on the right Treatment Goals Patient/Caregiver Goals Harleen would like to improve her walking ability and walk without hip pain. She would like to improve overall core and hip strength Prior Functional Status Baseline Function- ADL's Needs Assist Baseline Function- Mobility Needs Assist Baseline Function- Gait pt had right sided hip pain with gait prior to surgery Current Functional Impairments (Reported) Functional Limitations- ADL's limited in ADL's that require bending and lifting and twisting due to fusion precautions Functional Limitations- Mobility/Gait pt is currently limited to standing and ambulating of 10 min or less PT-OP-C Subjective Start: 05/02/23 08:14 Freq: Status: Active Protocol: Document 06/20/23 12:51 AB (Rec: 06/20/23 14:39 AB [id number]) OP-PT Subjective Patient Comments Patient Comments Patient reports her get up and go got up and went, hasn't done her exercises in a week, has been walking. Patient rates right hip and groin pain 4-5/10. PT-OP-G Mobility & Gait Start: 05/02/23 14:11 Freq: Status: Active Protocol: Document 05/02/23 11:15 AMH (Rec: 05/02/23 14:14 AMH [id number]) OP Mobility Evaluation Bed Mobility Rolling pt demonstrates log rolling technique for transfers in and out of bed Ind Supine to and from Sit Ind Transfers Sit to Stand uses hands with sit-stand OP Gait Assessment Gait Gait Assistance Required: Standby Assistance Distance (Feet) 300 Able to Maintain Weight Bearing Status Yes During Gait Factors Limiting Gait Function Factors Limiting Gait Function Decreased Strength,Limited Range of Motion,Pain Comments Gait Comments Harleen has a walker for community ambulation however she did not have it with her today. She also has walking sticks that she uses. Harleen ambulates with the right LE ER , she lacks heel strike for push of and presents with a small amount of toe drag which causes her to lose her balance. PT-OP-K Range of Motion Start: 05/02/23 08:14 Freq: Status: Active Protocol: Document 05/02/23 11:15 AMH (Rec: 05/02/23 14:25 AMH [id number]) Hip Goniometric Range of Motion Hip right Hip ROM WFL No Testing Position Supine Flexion w/Knee Flexed 100 Straight Leg Raise 45 Extension 0 Abduction 15 Internal Rotation 5 External Rotation 20 Comments pt lacks hip extension and is tight in the iliopsoas and quads on the right, she has pain in the anterior hip with hip flexion, IR is very limited Hip ROM Limitations Hip ROM Limitations Soft Tissue Tightness,Bony Restriction,Pain Ankle and Foot Goniometric Range of Motion Ankle and Foot Right Ankle/Foot ROM WFL No Testing Position Supine Dorsiflexion with Knee Extended 4 Ankle and Foot ROM Limitations ROM Limitations Soft Tissue Tightness,Muscle Weakness Comments pt presents with tightness in the calf musculature limiting ankle DF as well as decreased strength of Tibialis anterior on the right PT-OP-M Strength Start: 05/02/23 14:11 Freq: Status: Active Protocol: Document 05/02/23 11:15 AMH (Rec: 05/02/23 14:25 AMH [id number]) Hip Strength Hip Manual Muscle Testing Right Flexion (L2) 3 Fair Extension (S1) 3 Fair Abduction 3 Fair External Rotation 3 Fair Comments pain with resisted ER and hip flexion on the right Ankle/Foot Strength Ankle and Foot Manual Muscle Testing Right Dorsiflexion (L4) 3+ Fair+ Plantarflexion (S1) 4 Good PT-OP-Q Treatments Start: 05/02/23 08:14 Freq: Status: Active Protocol: Document 06/20/23 12:51 AB (Rec: 06/20/23 14:39 AB [id number]) Therapeutic Exercises Supine Exercises butterfly stretch with breathing from diaphragm Supine Exercise Name verbal cues for breathing from diaphragm Reps/Minutes one minute piriformis stretch Side right Reps/Minutes X1 60 seconds figure 4 stretch Reps/Minutes X1 60 seconds hip flexor stretch Supine Exercise Name edge of bed stretch modified to on bed with left LE elevated on bolster Side right Reps/Minutes 60 seconds X 1 Standing Exercises counter bird dog Standing Exercise Name with abdominal bracing Side bilateral Reps/Minutes X10 Comments Verbal and visual cues Pallof Press Standing Exercise Name Pallof Press Side bilateral Resistance royal blue, level 4 band Reps/Minutes 1X10 Manual Therapy Treatment Soft Tissue Mobilization right hip flexor at groin Body Location R hip flexor/quad Mobilization Type Cross-Friction,Rolling Intensity/Depth Moderate Body Position Hooklying Comments Monitored for pain, performed prior to stretch right lumbar paraspinals Body Location nerve slacking Mobilization Type Sustained Pressure Intensity/Depth Superficial Body Position Sidelying Comments monitored for pain right piriformis Mobilization Type Cross-Friction,Rolling Intensity/Depth Moderate Body Position Sidelying Comments monitored for pain PT-OP-T Assessment and Plan Start: 05/02/23 08:14 Freq: Status: Active Protocol: Document 06/20/23 12:51 AB (Rec: 06/20/23 14:39 AB [id number]) Physical Therapy Assessment Goals Modified oswestry low back pain disability questionaire Impairment pt scores 26 on the modified oswestry questionnaire Custodial Goal (LTG) Harleen is able to improve her score to 20% or better LTG Duration 12 weeks gait Impairment Harleen is limited to 10 min of standing and gait at this time due to increased right sided hip pain Custodial Goal (LTG) Harleen is able to increase her standing time to 20 min and is able to increase her walking distance to 1/2 mile or more LTG Duration 8 weeks weakness Impairment Harleen presents with weakness of the right tibialis anterior and hip and musculature Short Term Goal (STG) Harleen is educated on a home strenghtening program STG Duration Met Buying Intern Goal (LTG) Harleen demonstrates improved strength of the tibialis anterior and hip abduction/ER on the Right with MMT LTG Duration 8 Hip ROM Impairment Pt with limited R hip mobility secondary to pain. She is limited to 100 degrees hip flexion Short Term Goal (STG) Harleen is educated on a home stretching program for her hips STG Duration Met Buying Intern Goal (LTG) pt has improved hip mobility into hip extension and is able to improve hip flexion to 110 degrees in supine LTG Duration Met - 112 degrees R flexion Assessment Summary Assessment Patient reports she is fine ambulating out of session, but did have to sit for a few minutes prior to leaving session and post supine to sit due to reports of dizziness which patient attributes to crystals in ears and reports having a hx of which she previously resolved with exercises found on internet. Physical Therapy Plan Frequency and Duration Frequency of Treatment 2x/Week Duration of treatment (weeks) 8 Plan of Care Start Date 05/02/23 Plan of Care End Date 06/27/23 Next Visit Focus/Plan Next Note Type Treatment Note Next Visit Plan Reassess DF strength/calf muscle length/as needed review Gait training, heel strike and strengthening for improved DF strength on the right foot . Work on core stability. Assess tolerance to Pallof press and Counter bird dog additions to HEP, possibly butterfly stretch to HEP.
--- NOTE | 2023-06-27 09:39 | PT.OPPOC ---
Physical, Occupational & Speech Therapy At [facility] Current Diagnoses Pain in right hip (06/20/23) Stiffness of unspecified hip, not elsewhere classified (06/20/23) Other specified joint disorders, unspecified hip (06/20/23) Spondylolisthesis, lumbosacral region (06/20/23) Spinal stenosis, lumbar region without neurogenic claudication (06/20/23) Visit Care Team Role Provider Type DALE Jimenez Family Provider Advanced Baggage And Mail Agent Primary Care Provider Specialty: Family Practice Address: [address] [place] [address], [id number] Email: [email or web address] Milton Matt MD Attending Provider Physician Referring Provider Specialty: Orthopedics Orthopedic Surgery Address: [address] [place] [address], [id number] Email: [email or web address] Plan Of Care PT-OP-T Assessment and Plan Start: 05/02/23 08:14 Freq: Status: Active Protocol: Document 06/29/23 09:35 DCW (Rec: 06/29/23 09:39 DCW [id number]) Physical Therapy Assessment Impairments Impairments Activity Tolerance,Functional Activities,Functional Mobility ,Gait,Pain,ROM,Strength Goals Modified oswestry low back pain disability questionaire Impairment pt scores 26 on the modified oswestry questionnaire Irrigationist Designer Goal (LTG) Harleen is able to improve her score to 20% or better LTG Duration 12 weeks gait Impairment Harleen is limited to 10 min of standing and gait at this time due to increased right sided hip pain Irrigationist Designer Goal (LTG) Harleen is able to increase her standing time to 20 min and is able to increase her walking distance to 1/2 mile or more LTG Duration 8 weeks weakness Impairment Harleen presents with weakness of the right tibialis anterior and hip and musculature Short Term Goal (STG) Harleen is educated on a home strenghtening program STG Duration Met Intermediate Goal (LTG) Harleen demonstrates improved strength of the tibialis anterior and hip abduction/ER on the Right with MMT LTG Duration 8 Hip ROM Impairment Pt with limited R hip mobility secondary to pain. She is limited to 100 degrees hip flexion Short Term Goal (STG) Harleen is educated on a home stretching program for her hips STG Duration Met Irrigationist Designer Goal (LTG) pt has improved hip mobility into hip extension and is able to improve hip flexion to 110 degrees in supine LTG Duration Met - 112 degrees R flexion Progress Towards Goals Progress Towards Goals Progressing Toward Goals Assessment Summary Assessment Pt making good improvement overall, has progressed toward meeting goals. Met hip ROM goals, doing better with HEP compliance, and has worked on independent pool activities. Continue to focus on improving hip mobility/pain, gait and balance. Physical Therapy Plan Frequency and Duration Frequency of Treatment 2x/Week Duration of treatment (weeks) 8 Plan of Care Start Date 06/27/23 Plan of Care End Date 08/27/23 Therapeutic Interventions Therapeutic Interventions Balance Training,Gait Training ,Home Exercise Program,Manual Therapy,Neuromuscular Re- education,Patient/Caregiver Education,Self-Care/Home Management,Therapeutic Exercises Next Visit Focus/Plan Next Note Type Treatment Note Next Visit Plan Reassess DF strength/calf muscle length/as needed review Gait training, heel strike and strengthening for improved DF strength on the right foot . Work on core stability. Assess tolerance to Pallof press and Counter bird dog additions to HEP, possibly butterfly stretch to HEP. Plan of Care Dates Plan of Care Start Date 06/27/23 Plan of Care End Date 08/27/23 Electronically Signed by: Joe Doyle, PT 06/29/23 0939 If you are in agreement with this Plan of Care, please return a signed and dated copy. I have reviewed this Plan of Care and certify that the skilled therapy services above are required to meet the patient?s needs. Physician Signature Date Printed Name and Credentials Clinical Instructor Signature Printed Name and Credentials
--- NOTE | 2023-06-27 09:39 | PT.OPPN ---
Current Diagnoses Pain in right hip (06/20/23) Stiffness of unspecified hip, not elsewhere classified (06/20/23) Other specified joint disorders, unspecified hip (06/20/23) Spondylolisthesis, lumbosacral region (06/20/23) Spinal stenosis, lumbar region without neurogenic claudication (06/20/23) Physical Therapy Progress Note PT-OP-A Visit Information Start: 05/02/23 08:14 Freq: Status: Active Protocol: Document 06/20/23 12:51 AB (Rec: 06/20/23 14:39 AB [id number]) Out-Patient Physical Therapy Visit Information Visit Information Visit Type Treatment Note Visit Note Access Code [email or web address] 06/06 for PN Visit Start Time 13:01 Visit Stop Time 13:45 Visit Number 13 Number of EMPLOYEE 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 PT-OP-B Current Condition Start: 05/02/23 08:14 Freq: Status: Active Protocol: Document 05/02/23 11:15 [facility] (Rec: 05/02/23 10:10 AMH [id number]) Current Condition History of Current Condition Onset Date 02/15/23 Current Complaints Right sided anterior hip pain History of Current Condition 72 year old female s/p L5-S1 postero-lateral and posterior interbody fusion on 02/15/23, pt had a follow up appt with her doctor and she was given the go ahead to get back in the pool so that has felt good to her. She reports her complaints prior to surgery were of right sided anterior hip pain. Harleen notes she has a collapsed right arch which has caused a lot of pain on and off over the years. Last spring her right hip started hurting constantly and she was limping . She had hip xrays taken and a MRI of her spine and saw Dr Lena Canseco reports she was advised to have a fusion due to the nerve damage in her spine was causing the hip pain . She notes she wasn't having back pain at the time but was experiencing some radicular symptoms into her anterior right thigh. Since the surgery her right hip pain has not changed. She did feel that resting it helped her but once she has gotten back to walking she is feeling the anterior pain again. She notes she is not limping as much but she feels very weak since surgery. She finds her hips roll out into ER with sleeping and she will wake up with anterior/groin pain in the am. Her radiating nerve pain has decreased overall since surgery. She does have a walker but she is walking on her own in the house. She comes into PT today without a walker or cane. She reports feeling very tight in her right hip as compared to her left. She is able to go up and down the stairs in her house leading with her left leg. She has another follow up with Dr. Honeycutt next week Prior Treatments and Tests Xray taken in August of 2022 shows bilateral hip arthritis most severe on the right Treatment Goals Patient/Caregiver Goals Harleen would like to improve her walking ability and walk without hip pain. She would like to improve overall core and hip strength Prior Functional Status Baseline Function- ADL's Needs Assist Baseline Function- Mobility Needs Assist Baseline Function- Gait pt had right sided hip pain with gait prior to surgery Current Functional Impairments (Reported) Functional Limitations- ADL's limited in ADL's that require bending and lifting and twisting due to fusion precautions Functional Limitations- Mobility/Gait pt is currently limited to standing and ambulating of 10 min or less PT-OP-C Subjective Start: 05/02/23 08:14 Freq: Status: Active Protocol: Document 06/20/23 12:51 AB (Rec: 06/20/23 14:39 AB [id number]) OP-PT Subjective Patient Comments Patient Comments Patient reports her get up and go got up and went, hasn't done her exercises in a week, has been walking. Patient rates right hip and groin pain 4-5/10. PT-OP-G Mobility & Gait Start: 05/02/23 14:11 Freq: Status: Active Protocol: Document 05/02/23 11:15 AMH (Rec: 05/02/23 14:14 AMH [id number]) OP Mobility Evaluation Bed Mobility Rolling pt demonstrates log rolling technique for transfers in and out of bed Ind Supine to and from Sit Ind Transfers Sit to Stand uses hands with sit-stand OP Gait Assessment Gait Gait Assistance Required: Standby Assistance Distance (Feet) 300 Able to Maintain Weight Bearing Status Yes During Gait Factors Limiting Gait Function Factors Limiting Gait Function Decreased Strength,Limited Range of Motion,Pain Comments Gait Comments Harleen has a walker for community ambulation however she did not have it with her today. She also has walking sticks that she uses. Harleen ambulates with the right LE ER , she lacks heel strike for push of and presents with a small amount of toe drag which causes her to lose her balance. PT-OP-K Range of Motion Start: 05/02/23 08:14 Freq: Status: Active Protocol: Document 05/02/23 11:15 AMH (Rec: 05/02/23 14:25 [facility] [id number]) Hip Goniometric Range of Motion Hip Measured in Degrees right Hip ROM WFL No Testing Position Supine Flexion w/Knee Flexed 100 Straight Leg Raise 45 Extension 0 Abduction 15 Internal Rotation 5 External Rotation 20 Comments pt lacks hip extension and is tight in the iliopsoas and quads on the right, she has pain in the anterior hip with hip flexion, IR is very limited Hip ROM Limitations Hip ROM Limitations Soft Tissue Tightness,Bony Restriction,Pain Ankle and Foot Goniometric Range of Motion Ankle and Foot Measured in Degrees Right Ankle/Foot ROM WFL No Testing Position Supine Dorsiflexion with Knee Extended 4 Ankle and Foot ROM Limitations ROM Limitations Soft Tissue Tightness,Muscle Weakness Comments pt presents with tightness in the calf musculature limiting ankle DF as well as decreased strength of Tibialis anterior on the right PT-OP-M Strength Start: 05/02/23 14:11 Freq: Status: Active Protocol: Document 05/02/23 11:15 AM[facility] (Rec: 05/02/23 14:25 [facility] [id number]) Hip Strength Hip Manual Muscle Testing Right Flexion (L2) 3 Fair Extension (S1) 3 Fair Abduction 3 Fair External Rotation 3 Fair Comments pain with resisted ER and hip flexion on the right Ankle/Foot Strength Ankle and Foot Manual Muscle Testing Right Dorsiflexion (L4) 3+ Fair+ Plantarflexion (S1) 4 Good PT-OP-T Assessment and Plan Start: 05/02/23 08:14 Freq: Status: Active Protocol: Document 06/29/23 09:35 DCW (Rec: 06/29/23 09:39 DCW [id number]) Physical Therapy Assessment Impairments Impairments Activity Tolerance,Functional Activities,Functional Mobility ,Gait,Pain,ROM,Strength Goals Modified oswestry low back pain disability questionaire Impairment pt scores 26 on the modified oswestry questionnaire Alf Goal (LTG) Harleen is able to improve her score to 20% or better LTG Duration 12 weeks gait Impairment Harleen is limited to 10 min of standing and gait at this time due to increased right sided hip pain Alf Goal (LTG) Harleen is able to increase her standing time to 20 min and is able to increase her walking distance to 1/2 mile or more LTG Duration 8 weeks weakness Impairment Harleen presents with weakness of the right tibialis anterior and hip and musculature Short Term Goal (STG) Harleen is educated on a home strenghtening program STG Duration Met Certified Hearing Instrument Dispenser Goal (LTG) Harleen demonstrates improved strength of the tibialis anterior and hip abduction/ER on the Right with MMT LTG Duration 8 Hip ROM Impairment Pt with limited R hip mobility secondary to pain. She is limited to 100 degrees hip flexion Short Term Goal (STG) Harleen is educated on a home stretching program for her hips STG Duration Met Alf Goal (LTG) pt has improved hip mobility into hip extension and is able to improve hip flexion to 110 degrees in supine LTG Duration Met - 112 degrees R flexion Progress Towards Goals Progress Towards Goals Progressing Toward Goals Assessment Summary Assessment Pt making good improvement overall, has progressed toward meeting goals. Met hip ROM goals, doing better with HEP compliance, and has worked on independent pool activities. Continue to focus on improving hip mobility/pain, gait and balance. Physical Therapy Plan Frequency and Duration Frequency of Treatment 2x/Week Duration of treatment (weeks) 8 Plan of Care Start Date 06/27/23 Plan of Care End Date 08/27/23 Therapeutic Interventions Therapeutic Interventions Balance Training,Gait Training ,Home Exercise Program,Manual Therapy,Neuromuscular Re- education,Patient/Caregiver Education,Self-Care/Home Management,Therapeutic Exercises Next Visit Focus/Plan Next Note Type Treatment Note Next Visit Plan Reassess DF strength/calf muscle length/as needed review Gait training, heel strike and strengthening for improved DF strength on the right foot . Work on core stability. Assess tolerance to Pallof press and Counter bird dog additions to HEP, possibly butterfly stretch to HEP.
--- NOTE | 2023-06-29 16:15 | PT.OTN ---
Current Diagnoses Pain in right hip (06/29/23) Stiffness of unspecified hip, not elsewhere classified (06/29/23) Other specified joint disorders, unspecified hip (06/29/23) Spondylolisthesis, lumbosacral region (06/29/23) Spinal stenosis, lumbar region without neurogenic claudication (06/29/23) Physical Therapy Treatment Note PT-OP-A Visit Information Start: 05/02/23 08:14 Freq: Status: Active Protocol: Document 06/29/23 15:15 AB (Rec: 06/29/23 16:15 AB [id number]) Out-Patient Physical Therapy Visit Information Visit Information Visit Type Treatment Note Visit Note Access Code [id number] 06/06 for PN Visit Start Time 15:16 Visit Stop Time 16:05 Visit Number 14 Number of MENTAL TESTER Visits 1 Evaluation Information Evaluation Date 05/02/23 Precautions Precautions pt is still under her lumbar fusion precautions of no lifting, bending, or twisting. 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 PT-OP-B Current Condition Start: 05/02/23 08:14 Freq: Status: Active Protocol: Document 05/02/23 11:15 AMH (Rec: 05/02/23 10:10 AM[facility] [id number]) Current Condition History of Current Condition Onset Date 02/15/23 Current Complaints Right sided anterior hip pain History of Current Condition 72 year old female s/p L5-S1 postero-lateral and posterior interbody fusion on 02/15/23, pt had a follow up appt with her doctor and she was given the go ahead to get back in the pool so that has felt good to her. She reports her complaints prior to surgery were of right sided anterior hip pain. Harleen notes she has a collapsed right arch which has caused a lot of pain on and off over the years. Last spring her right hip started hurting constantly and she was limping . She had hip xrays taken and a MRI of her spine and saw Dr Lena Canseco reports she was advised to have a fusion due to the nerve damage in her spine was causing the hip pain . She notes she wasn't having back pain at the time but was experiencing some radicular symptoms into her anterior right thigh. Since the surgery her right hip pain has not changed. She did feel that resting it helped her but once she has gotten back to walking she is feeling the anterior pain again. She notes she is not limping as much but she feels very weak since surgery. She finds her hips roll out into ER with sleeping and she will wake up with anterior/groin pain in the am. Her radiating nerve pain has decreased overall since surgery. She does have a walker but she is walking on her own in the house. She comes into PT today without a walker or cane. She reports feeling very tight in her right hip as compared to her left. She is able to go up and down the stairs in her house leading with her left leg. She has another follow up with Dr. Honeycutt next week Prior Treatments and Tests Xray taken in August of 2022 shows bilateral hip arthritis most severe on the right Treatment Goals Patient/Caregiver Goals Harleen would like to improve her walking ability and walk without hip pain. She would like to improve overall core and hip strength Prior Functional Status Baseline Function- ADL's Needs Assist Baseline Function- Mobility Needs Assist Baseline Function- Gait pt had right sided hip pain with gait prior to surgery Current Functional Impairments (Reported) Functional Limitations- ADL's limited in ADL's that require bending and lifting and twisting due to fusion precautions Functional Limitations- Mobility/Gait pt is currently limited to standing and ambulating of 10 min or less PT-OP-C Subjective Start: 05/02/23 08:14 Freq: Status: Active Protocol: Document 06/29/23 15:15 AB (Rec: 06/29/23 16:15 AB [id number]) OP-PT Subjective Patient Comments Patient Comments Patient reports she has been performing her HEP and feels it may be helpint. Harleen reports she is sore today as she has been standing a lot. PT-OP-G Mobility & Gait Start: 05/02/23 14:11 Freq: Status: Active Protocol: Document 05/02/23 11:15 AMH (Rec: 05/02/23 14:14 AMH [id number]) OP Mobility Evaluation Bed Mobility Rolling pt demonstrates log rolling technique for transfers in and out of bed Ind Supine to and from Sit Ind Transfers Sit to Stand uses hands with sit-stand OP Gait Assessment Gait Gait Assistance Required: Standby Assistance Distance (Feet) 300 Able to Maintain Weight Bearing Status Yes During Gait Factors Limiting Gait Function Factors Limiting Gait Function Decreased Strength,Limited Range of Motion,Pain Comments Gait Comments Harleen has a walker for community ambulation however she did not have it with her today. She also has walking sticks that she uses. Harleen ambulates with the right LE ER , she lacks heel strike for push of and presents with a small amount of toe drag which causes her to lose her balance. PT-OP-K Range of Motion Start: 05/02/23 08:14 Freq: Status: Active Protocol: Document 05/02/23 11:15 AMH (Rec: 05/02/23 14:25 AM[facility] [id number]) Hip Goniometric Range of Motion Hip right Hip ROM WFL No Testing Position Supine Flexion w/Knee Flexed 100 Straight Leg Raise 45 Extension 0 Abduction 15 Internal Rotation 5 External Rotation 20 Comments pt lacks hip extension and is tight in the iliopsoas and quads on the right, she has pain in the anterior hip with hip flexion, IR is very limited Hip ROM Limitations Hip ROM Limitations Soft Tissue Tightness,Bony Restriction,Pain Ankle and Foot Goniometric Range of Motion Ankle and Foot Right Ankle/Foot ROM WFL No Testing Position Supine Dorsiflexion with Knee Extended 4 Ankle and Foot ROM Limitations ROM Limitations Soft Tissue Tightness,Muscle Weakness Comments pt presents with tightness in the calf musculature limiting ankle DF as well as decreased strength of Tibialis anterior on the right PT-OP-M Strength Start: 05/02/23 14:11 Freq: Status: Active Protocol: Document 05/02/23 11:15 AMH (Rec: 05/02/23 14:25 AM[facility] [id number]) Hip Strength Hip Manual Muscle Testing Right Flexion (L2) 3 Fair Extension (S1) 3 Fair Abduction 3 Fair External Rotation 3 Fair Comments pain with resisted ER and hip flexion on the right Ankle/Foot Strength Ankle and Foot Manual Muscle Testing Right Dorsiflexion (L4) 3+ Fair+ Plantarflexion (S1) 4 Good PT-OP-Q Treatments Start: 05/02/23 08:14 Freq: Status: Active Protocol: Document 06/29/23 15:15 AB (Rec: 06/29/23 16:15 AB [id number]) Therapeutic Exercises Supine Exercises butterfly stretch with breathing from diaphragm Side bilateral Reps/Minutes one minute piriformis stretch Side bilateral Reps/Minutes X1 60 seconds figure 4 stretch Side bilateral Reps/Minutes X1 60 seconds hip flexor stretch Supine Exercise Name edge of bed stretch modified to on bed with left LE elevated on bolster Side right Reps/Minutes 60 seconds X 1 Sitting Exercises seated hip abduction with band Side bilateral Equipment Used levle 4 blue band Reps/Minutes one minute hold and 2X10 Standing Exercises squat Standing Exercise Name mini squat Side bilateral Reps/Minutes X10 Comments verbal cues for hip hinge and to avoid toeing out counter bird dog Standing Exercise Name with abdominal bracing Side bilateral Reps/Minutes X10 Comments Verbal and visual cues Therapeutic Activity Therapeutic Activity sit to stand Reps/Minutes X5 Comments from varying seat heights, Patient ed to avoid ER at hip right LE and use of self tactile cues for hip hinge Manual Therapy Treatment Soft Tissue Mobilization right hip flexor at groin Body Location R hip flexor Mobilization Type Cross-Friction,Rolling Intensity/Depth Moderate Body Position Hooklying Comments Monitored for pain, performed prior to stretch right lumbar paraspinals Body Location nerve slacking Mobilization Type Sustained Pressure Intensity/Depth Superficial Body Position Sidelying Comments superficial to moderate, bilateral this session. right piriformis Mobilization Type Cross-Friction,Rolling Intensity/Depth Moderate Body Position Sidelying Comments monitored for pain Manual Techniques MET for right AI left PI and pubic shot gun Type Left AI right PI this session Reps/Duration 6 sec X 6 each PT-OP-T Assessment and Plan Start: 05/02/23 08:14 Freq: Status: Active Protocol: Document 06/29/23 15:15 AB (Rec: 06/29/23 16:15 AB [id number]) Physical Therapy Assessment Goals Modified oswestry low back pain disability questionaire Impairment pt scores 26 on the modified oswestry questionnaire Senior Data Warehouse Architect Goal (LTG) Harleen is able to improve her score to 20% or better LTG Duration 12 weeks gait Impairment Harleen is limited to 10 min of standing and gait at this time due to increased right sided hip pain Senior Data Warehouse Architect Goal (LTG) Harleen is able to increase her standing time to 20 min and is able to increase her walking distance to 1/2 mile or more LTG Duration 8 weeks weakness Impairment Harleen presents with weakness of the right tibialis anterior and hip and musculature Short Term Goal (STG) Harleen is educated on a home strenghtening program STG Duration Met Longterm Goal (LTG) Harleen demonstrates improved strength of the tibialis anterior and hip abduction/ER on the Right with MMT LTG Duration 8 Hip ROM Impairment Pt with limited R hip mobility secondary to pain. She is limited to 100 degrees hip flexion Short Term Goal (STG) Harleen is educated on a home stretching program for her hips STG Duration Met Senior Data Warehouse Architect Goal (LTG) pt has improved hip mobility into hip extension and is able to improve hip flexion to 110 degrees in supine LTG Duration Met - 112 degrees R flexion Assessment Summary Assessment Harleen reports feeling steadier ambulating out of session. C/ O right groin pain persists. Physical Therapy Plan Frequency and Duration Frequency of Treatment 2x/Week Duration of treatment (weeks) 8 Plan of Care Start Date 06/27/23 Plan of Care End Date 08/27/23 Next Visit Focus/Plan Next Note Type Treatment Note Next Visit Plan Reassess DF strength/calf muscle length/as needed review Gait training, heel strike and strengthening for improved DF strength on the right foot . Work on core stability. HEP review
--- NOTE | 2023-07-04 16:16 | PT.OTN ---
Current Diagnoses Pain in right hip (07/04/23) Stiffness of unspecified hip, not elsewhere classified (07/04/23) Other specified joint disorders, unspecified hip (07/04/23) Spondylolisthesis, lumbosacral region (07/04/23) Spinal stenosis, lumbar region without neurogenic claudication (07/04/23) Physical Therapy Treatment Note PT-OP-A Visit Information Start: 05/02/23 08:14 Freq: Status: Active Protocol: Document 07/04/23 13:48 AB (Rec: 07/04/23 16:16 AB [id number]) Out-Patient Physical Therapy Visit Information Visit Information Visit Type Treatment Note Visit Note Access Code [email or web address] 07/06 for PN Visit Start Time 15:18 Visit Stop Time 14:04 Visit Number 15 Number of REHABILITATION AIDE Visits 2 Evaluation Information Evaluation Date 05/02/23 Precautions Precautions pt is still under her lumbar fusion precautions of no lifting, bending, or twisting. 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 PT-OP-B Current Condition Start: 05/02/23 08:14 Freq: Status: Active Protocol: Document 05/02/23 11:15 [facility] (Rec: 05/02/23 10:10 [facility] [id number]) Current Condition History of Current Condition Onset Date 02/15/23 Current Complaints Right sided anterior hip pain History of Current Condition 72 year old female s/p L5-S1 postero-lateral and posterior interbody fusion on 02/15/23, pt had a follow up appt with her doctor and she was given the go ahead to get back in the pool so that has felt good to her. She reports her complaints prior to surgery were of right sided anterior hip pain. Harleen notes she has a collapsed right arch which has caused a lot of pain on and off over the years. Last spring her right hip started hurting constantly and she was limping . She had hip xrays taken and a MRI of her spine and saw Dr Lena Canseco reports she was advised to have a fusion due to the nerve damage in her spine was causing the hip pain . She notes she wasn't having back pain at the time but was experiencing some radicular symptoms into her anterior right thigh. Since the surgery her right hip pain has not changed. She did feel that resting it helped her but once she has gotten back to walking she is feeling the anterior pain again. She notes she is not limping as much but she feels very weak since surgery. She finds her hips roll out into ER with sleeping and she will wake up with anterior/groin pain in the am. Her radiating nerve pain has decreased overall since surgery. She does have a walker but she is walking on her own in the house. She comes into PT today without a walker or cane. She reports feeling very tight in her right hip as compared to her left. She is able to go up and down the stairs in her house leading with her left leg. She has another follow up with Dr. Honeycutt next week Prior Treatments and Tests Xray taken in August of 2022 shows bilateral hip arthritis most severe on the right Treatment Goals Patient/Caregiver Goals Harleen would like to improve her walking ability and walk without hip pain. She would like to improve overall core and hip strength Prior Functional Status Baseline Function- ADL's Needs Assist Baseline Function- Mobility Needs Assist Baseline Function- Gait pt had right sided hip pain with gait prior to surgery Current Functional Impairments (Reported) Functional Limitations- ADL's limited in ADL's that require bending and lifting and twisting due to fusion precautions Functional Limitations- Mobility/Gait pt is currently limited to standing and ambulating of 10 min or less PT-OP-C Subjective Start: 05/02/23 08:14 Freq: Status: Active Protocol: Document 07/04/23 13:48 AB (Rec: 07/04/23 16:16 AB [id number]) OP-PT Subjective Patient Comments Patient Comments Patient into session today with SPC right UE, reports she feels steadier less likely to tweak the hip. Patient reports no change in pain with SPC. DF right ankle 4+/5 within limited ROM great toe 3 cm from wall with knee to wall prior to heel off floor PROM DF right ankle, SLS right LE 1 second left LE 8 seconds without UE use PT-OP-G Mobility & Gait Start: 05/02/23 14:11 Freq: Status: Active Protocol: Document 05/02/23 11:15 [facility] (Rec: 05/02/23 14:14 [facility] [id number]) OP Mobility Evaluation Bed Mobility Rolling pt demonstrates log rolling technique for transfers in and out of bed Ind Supine to and from Sit Ind Transfers Sit to Stand uses hands with sit-stand OP Gait Assessment Gait Gait Assistance Required: Standby Assistance Distance (Feet) 300 Able to Maintain Weight Bearing Status Yes During Gait Factors Limiting Gait Function Factors Limiting Gait Function Decreased Strength,Limited Range of Motion,Pain Comments Gait Comments Harleen has a walker for community ambulation however she did not have it with her today. She also has walking sticks that she uses. Harleen ambulates with the right LE ER , she lacks heel strike for push of and presents with a small amount of toe drag which causes her to lose her balance. PT-OP-K Range of Motion Start: 05/02/23 08:14 Freq: Status: Active Protocol: Document 05/02/23 11:15 [facility] (Rec: 05/02/23 14:25 [facility] [id number]) Hip Goniometric Range of Motion Hip right Hip ROM WFL No Testing Position Supine Flexion w/Knee Flexed 100 Straight Leg Raise 45 Extension 0 Abduction 15 Internal Rotation 5 External Rotation 20 Comments pt lacks hip extension and is tight in the iliopsoas and quads on the right, she has pain in the anterior hip with hip flexion, IR is very limited Hip ROM Limitations Hip ROM Limitations Soft Tissue Tightness,Bony Restriction,Pain Ankle and Foot Goniometric Range of Motion Ankle and Foot Right Ankle/Foot ROM WFL No Testing Position Supine Dorsiflexion with Knee Extended 4 Ankle and Foot ROM Limitations ROM Limitations Soft Tissue Tightness,Muscle Weakness Comments pt presents with tightness in the calf musculature limiting ankle DF as well as decreased strength of Tibialis anterior on the right PT-OP-M Strength Start: 05/02/23 14:11 Freq: Status: Active Protocol: Document 05/02/23 11:15 [facility] (Rec: 05/02/23 14:25 [facility] [id number]) Hip Strength Hip Manual Muscle Testing Right Flexion (L2) 3 Fair Extension (S1) 3 Fair Abduction 3 Fair External Rotation 3 Fair Comments pain with resisted ER and hip flexion on the right Ankle/Foot Strength Ankle and Foot Manual Muscle Testing Right Dorsiflexion (L4) 3+ Fair+ Plantarflexion (S1) 4 Good PT-OP-Q Treatments Start: 05/02/23 08:14 Freq: Status: Active Protocol: Document 07/04/23 13:48 AB (Rec: 07/04/23 16:16 AB [id number]) Therapeutic Exercises Supine Exercises butterfly stretch with breathing from diaphragm Side bilateral Reps/Minutes one minute piriformis stretch Side bilateral Reps/Minutes X3 60 seconds X 2 30 X 1 Comments towel roll to groin post first rep figure 4 stretch Side bilateral Reps/Minutes X1 60 seconds Sitting Exercises seated hip abduction with band Side bilateral Equipment Used level one band this session Reps/Minutes one minute hold and 1X10 Standing Exercises hip flexor stretch on step Side right Reps/Minutes 60 sec X 3 Comments verbal and visual cues step up step back Standing Exercise Name trial of 6 inch, and 4 inch step then performed on 2 inch step Side right Reps/Minutes X20 squat Standing Exercise Name mini squat Side bilateral Reps/Minutes X10 Comments verbal cues for hip hinge and to avoid toeing out Gait Training Gait Activity gait training with SPC Device Used SPC Treatment Focus level surface and stairs, sequence and correct UE use Comments Verbal cues to position cane on step ahead when descending and UE fwd on rail to step ahead, also pt ed rationale of cane in left UE to improve balance during ambulation. PT-OP-T Assessment and Plan Start: 05/02/23 08:14 Freq: Status: Active Protocol: Document 07/04/23 13:48 AB (Rec: 07/04/23 16:16 AB [id number]) Physical Therapy Assessment Goals Modified oswestry low back pain disability questionaire Impairment pt scores 26 on the modified oswestry questionnaire Flatwork Supervisor Goal (LTG) Harleen is able to improve her score to 20% or better LTG Duration 12 weeks gait Impairment Harleen is limited to 10 min of standing and gait at this time due to increased right sided hip pain Flatwork Supervisor Goal (LTG) Harleen is able to increase her standing time to 20 min and is able to increase her walking distance to 1/2 mile or more LTG Duration 8 weeks weakness Impairment Harleen presents with weakness of the right tibialis anterior and hip and musculature Short Term Goal (STG) Harleen is educated on a home strenghtening program STG Duration Met [facility] Goal (LTG) Harleen demonstrates improved strength of the tibialis anterior and hip abduction/ER on the Right with MMT LTG Duration 8 Hip ROM Impairment Pt with limited R hip mobility secondary to pain. She is limited to 100 degrees hip flexion Short Term Goal (STG) Harleen is educated on a home stretching program for her hips STG Duration Met Flatwork Supervisor Goal (LTG) pt has improved hip mobility into hip extension and is able to improve hip flexion to 110 degrees in supine LTG Duration Met - 112 degrees R flexion Assessment Summary Assessment Harleen ambulates with SPC in left UE and ascends and descends stairs with SPC and rail with step to and reciprocal pattern with good sequence post training. Physical Therapy Plan Frequency and Duration Frequency of Treatment 2x/Week Duration of treatment (weeks) 8 Plan of Care Start Date 06/27/23 Plan of Care End Date 08/27/23 Next Visit Focus/Plan Next Note Type Treatment Note Next Visit Plan Add calf stretch to HEP, review mini squat, bent knee fall out and Pallof press, bird dog, possibly marching seated on ball in clinic.
--- NOTE | 2023-07-07 15:16 | PT.OTN ---
Current Diagnoses Pain in right hip (07/07/23) Stiffness of unspecified hip, not elsewhere classified (07/07/23) Other specified joint disorders, unspecified hip (07/07/23) Spondylolisthesis, lumbosacral region (07/07/23) Spinal stenosis, lumbar region without neurogenic claudication (07/07/23) Physical Therapy Treatment Note PT-OP-A Visit Information Start: 05/02/23 08:14 Freq: Status: Active Protocol: Document 07/07/23 14:30 DC[facility] (Rec: 07/07/23 15:16 DCW [id number]) Out-Patient Physical Therapy Visit Information Visit Information Visit Type Treatment Note Visit Note 08/06 for PN Visit Start Time 14:30 Visit Stop Time 15:15 Visit Number 16 Number of TIRE BUFFER Visits 0 Evaluation Information Evaluation Date 05/02/23 PT-OP-B Current Condition Start: 05/02/23 08:14 Freq: Status: Active Protocol: Document 05/02/23 11:15 [facility] (Rec: 05/02/23 10:10 [facility] [id number]) Current Condition History of Current Condition Onset Date 02/15/23 Current Complaints Right sided anterior hip pain History of Current Condition 72 year old female s/p L5-S1 postero-lateral and posterior interbody fusion on 02/15/23, pt had a follow up appt with her doctor and she was given the go ahead to get back in the pool so that has felt good to her. She reports her complaints prior to surgery were of right sided anterior hip pain. Harleen notes she has a collapsed right arch which has caused a lot of pain on and off over the years. Last spring her right hip started hurting constantly and she was limping . She had hip xrays taken and a MRI of her spine and saw Dr Lena Canseco reports she was advised to have a fusion due to the nerve damage in her spine was causing the hip pain . She notes she wasn't having back pain at the time but was experiencing some radicular symptoms into her anterior right thigh. Since the surgery her right hip pain has not changed. She did feel that resting it helped her but once she has gotten back to walking she is feeling the anterior pain again. She notes she is not limping as much but she feels very weak since surgery. She finds her hips roll out into ER with sleeping and she will wake up with anterior/groin pain in the am. Her radiating nerve pain has decreased overall since surgery. She does have a walker but she is walking on her own in the house. She comes into PT today without a walker or cane. She reports feeling very tight in her right hip as compared to her left. She is able to go up and down the stairs in her house leading with her left leg. She has another follow up with Dr. Honeycutt next week Prior Treatments and Tests Xray taken in August of 2022 shows bilateral hip arthritis most severe on the right Treatment Goals Patient/Caregiver Goals Harleen would like to improve her walking ability and walk without hip pain. She would like to improve overall core and hip strength Prior Functional Status Baseline Function- ADL's Needs Assist Baseline Function- Mobility Needs Assist Baseline Function- Gait pt had right sided hip pain with gait prior to surgery Current Functional Impairments (Reported) Functional Limitations- ADL's limited in ADL's that require bending and lifting and twisting due to fusion precautions Functional Limitations- Mobility/Gait pt is currently limited to standing and ambulating of 10 min or less PT-OP-C Subjective Start: 05/02/23 08:14 Freq: Status: Active Protocol: Document 07/07/23 14:30 DCW (Rec: 07/07/23 15:16 DCW [id number]) OP-PT Subjective Patient Comments Patient Comments Pt reports her hip is really bothering her today, really sore when she work up in the morning. Has tried to be pretty active today. PT-OP-G Mobility & Gait Start: 05/02/23 14:11 Freq: Status: Active Protocol: Document 05/02/23 11:15 [facility] (Rec: 05/02/23 14:14 [facility] [id number]) OP Mobility Evaluation Bed Mobility Rolling pt demonstrates log rolling technique for transfers in and out of bed Ind Supine to and from Sit Ind Transfers Sit to Stand uses hands with sit-stand OP Gait Assessment Gait Gait Assistance Required: Standby Assistance Distance (Feet) 300 Able to Maintain Weight Bearing Status Yes During Gait Factors Limiting Gait Function Factors Limiting Gait Function Decreased Strength,Limited Range of Motion,Pain Comments Gait Comments Harleen has a walker for community ambulation however she did not have it with her today. She also has walking sticks that she uses. Harleen ambulates with the right LE ER , she lacks heel strike for push of and presents with a small amount of toe drag which causes her to lose her balance. PT-OP-K Range of Motion Start: 05/02/23 08:14 Freq: Status: Active Protocol: Document 05/02/23 11:15 [facility] (Rec: 05/02/23 14:25 [facility] [id number]) Hip Goniometric Range of Motion Hip right Hip ROM WFL No Testing Position Supine Flexion w/Knee Flexed 100 Straight Leg Raise 45 Extension 0 Abduction 15 Internal Rotation 5 External Rotation 20 Comments pt lacks hip extension and is tight in the iliopsoas and quads on the right, she has pain in the anterior hip with hip flexion, IR is very limited Hip ROM Limitations Hip ROM Limitations Soft Tissue Tightness,Bony Restriction,Pain Ankle and Foot Goniometric Range of Motion Ankle and Foot Right Ankle/Foot ROM WFL No Testing Position Supine Dorsiflexion with Knee Extended 4 Ankle and Foot ROM Limitations ROM Limitations Soft Tissue Tightness,Muscle Weakness Comments pt presents with tightness in the calf musculature limiting ankle DF as well as decreased strength of Tibialis anterior on the right PT-OP-M Strength Start: 05/02/23 14:11 Freq: Status: Active Protocol: Document 05/02/23 11:15 [facility] (Rec: 05/02/23 14:25 [facility] [id number]) Hip Strength Hip Manual Muscle Testing Right Flexion (L2) 3 Fair Extension (S1) 3 Fair Abduction 3 Fair External Rotation 3 Fair Comments pain with resisted ER and hip flexion on the right Ankle/Foot Strength Ankle and Foot Manual Muscle Testing Right Dorsiflexion (L4) 3+ Fair+ Plantarflexion (S1) 4 Good PT-OP-Q Treatments Start: 05/02/23 08:14 Freq: Status: Active Protocol: Document 07/07/23 14:30 DCW (Rec: 07/07/23 15:16 DCW [id number]) Therapeutic Exercises Supine Exercises piriformis stretch Side bilateral Reps/Minutes X1 60 seconds ITB Supine Exercise Name ITB stretch /c strap Side bilateral Hamstring Supine Exercise Name HS stretch Side bilateral Sidelying Exercises Hip Abduction Sidelying Exercise Name Hip Abduction Side bilateral Comments HEP Reverse Clamshells Sidelying Exercise Name Reverse Clamshells Side bilateral Comments HEP Clamshells Sidelying Exercise Name Clamshells Side bilateral Comments HEP Manual Therapy Treatment Soft Tissue Mobilization right hip flexor at groin Body Location R hip flexor Mobilization Type Cross-Friction,Rolling Intensity/Depth Moderate Body Position Hooklying Comments Monitored for pain, performed prior to stretch right lumbar paraspinals Mobilization Type Sustained Pressure Intensity/Depth Superficial Body Position Sidelying Comments monitored for pain right piriformis Mobilization Type Cross-Friction,Rolling Intensity/Depth Moderate Body Position Sidelying Comments monitored for pain PT-OP-T Assessment and Plan Start: 05/02/23 08:14 Freq: Status: Active Protocol: Document 07/07/23 14:30 DCW (Rec: 07/07/23 15:16 DCW [id number]) Physical Therapy Assessment Impairments Impairments Activity Tolerance,Functional Activities,Functional Mobility ,Gait,Pain,ROM,Strength Goals Modified oswestry low back pain disability questionaire Impairment pt scores 26 on the modified oswestry questionnaire [facility] Goal (LTG) Harleen is able to improve her score to 20% or better LTG Duration 12 weeks gait Impairment Harleen is limited to 10 min of standing and gait at this time due to increased right sided hip pain [facility] Goal (LTG) Harleen is able to increase her standing time to 20 min and is able to increase her walking distance to 1/2 mile or more LTG Duration 8 weeks weakness Impairment Harleen presents with weakness of the right tibialis anterior and hip and musculature Short Term Goal (STG) Harleen is educated on a home strenghtening program STG Duration Met [employer] Floor Covering Installer Goal (LTG) Harleen demonstrates improved strength of the tibialis anterior and hip abduction/ER on the Right with MMT LTG Duration 8 Hip ROM Impairment Pt with limited R hip mobility secondary to pain. She is limited to 100 degrees hip flexion Short Term Goal (STG) Harleen is educated on a home stretching program for her hips STG Duration Met [facility] Goal (LTG) pt has improved hip mobility into hip extension and is able to improve hip flexion to 110 degrees in supine LTG Duration Met - 112 degrees R flexion Assessment Summary Assessment Discussed pt's ongoing hip complaints and possible options going forward. Pt noted interest in following up with Ortho to discuss [facility]OR. Will likely be approaching d/c from post-op spine therapy if pt plans to proceed with potential hip surgery. Physical Therapy Plan Frequency and Duration Frequency of Treatment 2x/Week Duration of treatment (weeks) 8 Plan of Care Start Date 06/27/23 Plan of Care End Date 08/27/23 Therapeutic Interventions Therapeutic Interventions Balance Training,Gait Training ,Home Exercise Program,Manual Therapy,Neuromuscular Re- education,Patient/Caregiver Education,Self-Care/Home Management,Therapeutic Exercises Next Visit Focus/Plan Next Note Type Treatment Note Next Visit Plan Add calf stretch to HEP, review mini squat, bent knee fall out and Pallof press, bird dog, possibly marching seated on ball in clinic.
--- NOTE | 2023-07-11 16:19 | PT.OTN ---
Current Diagnoses Pain in right hip (07/11/23) Stiffness of unspecified hip, not elsewhere classified (07/11/23) Other specified joint disorders, unspecified hip (07/11/23) Spondylolisthesis, lumbosacral region (07/11/23) Spinal stenosis, lumbar region without neurogenic claudication (07/11/23) Physical Therapy Treatment Note PT-OP-A Visit Information Start: 05/02/23 08:14 Freq: Status: Active Protocol: Document 07/11/23 15:19 AB (Rec: 07/11/23 16:19 AB [id number]) Out-Patient Physical Therapy Visit Information Visit Information Visit Type Treatment Note Visit Note 09/05 Access Code [email or web address] Visit Start Time 15:19 Visit Stop Time 16:08 Visit Number 17 Number of AD TAKER Visits 1 PT-OP-B Current Condition Start: 05/02/23 08:14 Freq: Status: Active Protocol: Document 05/02/23 11:15 AMH (Rec: 05/02/23 10:10 AMH [id number]) Current Condition History of Current Condition Onset Date 02/15/23 Current Complaints Right sided anterior hip pain History of Current Condition 72 year old female s/p L5-S1 postero-lateral and posterior interbody fusion on 02/15/23, pt had a follow up appt with her doctor and she was given the go ahead to get back in the pool so that has felt good to her. She reports her complaints prior to surgery were of right sided anterior hip pain. Harleen notes she has a collapsed right arch which has caused a lot of pain on and off over the years. Last spring her right hip started hurting constantly and she was limping . She had hip xrays taken and a MRI of her spine and saw Dr Lena Canseco reports she was advised to have a fusion due to the nerve damage in her spine was causing the hip pain . She notes she wasn't having back pain at the time but was experiencing some radicular symptoms into her anterior right thigh. Since the surgery her right hip pain has not changed. She did feel that resting it helped her but once she has gotten back to walking she is feeling the anterior pain again. She notes she is not limping as much but she feels very weak since surgery. She finds her hips roll out into ER with sleeping and she will wake up with anterior/groin pain in the am. Her radiating nerve pain has decreased overall since surgery. She does have a walker but she is walking on her own in the house. She comes into PT today without a walker or cane. She reports feeling very tight in her right hip as compared to her left. She is able to go up and down the stairs in her house leading with her left leg. She has another follow up with Dr. Honeycutt next week Prior Treatments and Tests Xray taken in August of 2022 shows bilateral hip arthritis most severe on the right Treatment Goals Patient/Caregiver Goals Harleen would like to improve her walking ability and walk without hip pain. She would like to improve overall core and hip strength Prior Functional Status Baseline Function- ADL's Needs Assist Baseline Function- Mobility Needs Assist Baseline Function- Gait pt had right sided hip pain with gait prior to surgery Current Functional Impairments (Reported) Functional Limitations- ADL's limited in ADL's that require bending and lifting and twisting due to fusion precautions Functional Limitations- Mobility/Gait pt is currently limited to standing and ambulating of 10 min or less PT-OP-C Subjective Start: 05/02/23 08:14 Freq: Status: Active Protocol: Document 07/11/23 15:19 AB (Rec: 07/11/23 16:19 AB [id number]) OP-PT Subjective Patient Comments Patient Comments Patient reports she spoke with MD regarding having the hip DrLena look at the hip again, and having another X ray. Patient reports she is getting another referral for the hip doctor. Patient reports pain right gluteal area 2/10 seated at rest. PT-OP-G Mobility & Gait Start: 05/02/23 14:11 Freq: Status: Active Protocol: Document 05/02/23 11:15 AMH (Rec: 05/02/23 14:14 AMH [id number]) OP Mobility Evaluation Bed Mobility Rolling pt demonstrates log rolling technique for transfers in and out of bed Ind Supine to and from Sit Ind Transfers Sit to Stand uses hands with sit-stand OP Gait Assessment Gait Gait Assistance Required: Standby Assistance Distance (Feet) 300 Able to Maintain Weight Bearing Status Yes During Gait Factors Limiting Gait Function Factors Limiting Gait Function Decreased Strength,Limited Range of Motion,Pain Comments Gait Comments Harleen has a walker for community ambulation however she did not have it with her today. She also has walking sticks that she uses. Harleen ambulates with the right LE ER , she lacks heel strike for push of and presents with a small amount of toe drag which causes her to lose her balance. PT-OP-K Range of Motion Start: 05/02/23 08:14 Freq: Status: Active Protocol: Document 05/02/23 11:15 AMH (Rec: 05/02/23 14:25 AMH [id number]) Hip Goniometric Range of Motion Hip right Hip ROM WFL No Testing Position Supine Flexion w/Knee Flexed 100 Straight Leg Raise 45 Extension 0 Abduction 15 Internal Rotation 5 External Rotation 20 Comments pt lacks hip extension and is tight in the iliopsoas and quads on the right, she has pain in the anterior hip with hip flexion, IR is very limited Hip ROM Limitations Hip ROM Limitations Soft Tissue Tightness,Bony Restriction,Pain Ankle and Foot Goniometric Range of Motion Ankle and Foot Right Ankle/Foot ROM WFL No Testing Position Supine Dorsiflexion with Knee Extended 4 Ankle and Foot ROM Limitations ROM Limitations Soft Tissue Tightness,Muscle Weakness Comments pt presents with tightness in the calf musculature limiting ankle DF as well as decreased strength of Tibialis anterior on the right PT-OP-M Strength Start: 05/02/23 14:11 Freq: Status: Active Protocol: Document 05/02/23 11:15 AMH (Rec: 05/02/23 14:25 [facility] [id number]) Hip Strength Hip Manual Muscle Testing Right Flexion (L2) 3 Fair Extension (S1) 3 Fair Abduction 3 Fair External Rotation 3 Fair Comments pain with resisted ER and hip flexion on the right Ankle/Foot Strength Ankle and Foot Manual Muscle Testing Right Dorsiflexion (L4) 3+ Fair+ Plantarflexion (S1) 4 Good PT-OP-Q Treatments Start: 05/02/23 08:14 Freq: Status: Active Protocol: Document 07/11/23 15:19 AB (Rec: 07/11/23 16:19 AB [id number]) Therapeutic Exercises Supine Exercises piriformis stretch Side bilateral Reps/Minutes X1 60 seconds figure 4 stretch Side bilateral Reps/Minutes X1 60 seconds Hamstring Supine Exercise Name HS stretch Side right Reps/Minutes one minute X 2 Standing Exercises calf stretches on step Standing Exercise Name gastroc and soleus Side bilateral Reps/Minutes 60 seconds X 2 each hip flexor stretch on step Side right Reps/Minutes 60 sec X 3 Comments verbal and visual cues squat Standing Exercise Name mini squat Side bilateral Reps/Minutes X10 X2 counter bird dog Standing Exercise Name with abdominal bracing Side bilateral Reps/Minutes X10 Comments Verbal and visual cues Pallof Press Standing Exercise Name Pallof Press Side bilateral Resistance royal blue, level 4 band Reps/Minutes 1X10 Therapeutic Activity Therapeutic Activity Self STM with balls Reps/Minutes 4 min Comments at wall and in hooklying with tennis and lacrosse ball right gluteal area Manual Therapy Treatment Soft Tissue Mobilization right piriformis Mobilization Type Cross-Friction,Rolling, Sustained Pressure Intensity/Depth Moderate Body Position Sidelying Manual Techniques MET for right AI left PI and pubic shot gun Type Left AI right PI this session Reps/Duration 6 sec X 6 each Comments modified to seated post pubic shotgun Neuro Re-Education Treatment Other Activities sciatic nerve glide Details from hooklying HS stretch postion DF and PF AROM Reps/Duration X5 X 2 Comments Verbal cues PT-OP-T Assessment and Plan Start: 05/02/23 08:14 Freq: Status: Active Protocol: Document 07/11/23 15:19 AB (Rec: 07/11/23 16:19 AB [id number]) Physical Therapy Assessment Assessment Summary Assessment Patient reports her pain is the same, but she feels good that she did something. Physical Therapy Plan Frequency and Duration Frequency of Treatment 2x/Week Duration of treatment (weeks) 8 Plan of Care Start Date 06/27/23 Plan of Care End Date 08/27/23 Next Visit Focus/Plan Next Note Type Treatment Note Next Visit Plan Review bent knee fall out possibly marching seated on ball in clinic.
--- NOTE | 2023-07-13 15:50 | PT.OTN ---
Current Diagnoses Pain in right hip (07/13/23) Stiffness of unspecified hip, not elsewhere classified (07/13/23) Other specified joint disorders, unspecified hip (07/13/23) Spondylolisthesis, lumbosacral region (07/13/23) Spinal stenosis, lumbar region without neurogenic claudication (07/13/23) Physical Therapy Treatment Note PT-OP-A Visit Information Start: 05/02/23 08:14 Freq: Status: Active Protocol: Document 07/13/23 15:15 DCW (Rec: 07/13/23 15:50 DCW [id number]) Out-Patient Physical Therapy Visit Information Visit Information Visit Type Discharge Summary Visit Start Time 15:15 Visit Stop Time 15:42 Visit Number 18 Number of MOBILE HOME PARK MANAGER Visits 0 Evaluation Information Evaluation Date 05/02/23 PT-OP-B Current Condition Start: 05/02/23 08:14 Freq: Status: Active Protocol: Document 05/02/23 11:15 AMH (Rec: 05/02/23 10:10 AMH [id number]) Current Condition History of Current Condition Onset Date 02/15/23 Current Complaints Right sided anterior hip pain History of Current Condition 72 year old female s/p L5-S1 postero-lateral and posterior interbody fusion on 02/15/23, pt had a follow up appt with her doctor and she was given the go ahead to get back in the pool so that has felt good to her. She reports her complaints prior to surgery were of right sided anterior hip pain. Harleen notes she has a collapsed right arch which has caused a lot of pain on and off over the years. Last spring her right hip started hurting constantly and she was limping . She had hip xrays taken and a MRI of her spine and saw Dr Lena Canseco reports she was advised to have a fusion due to the nerve damage in her spine was causing the hip pain . She notes she wasn't having back pain at the time but was experiencing some radicular symptoms into her anterior right thigh. Since the surgery her right hip pain has not changed. She did feel that resting it helped her but once she has gotten back to walking she is feeling the anterior pain again. She notes she is not limping as much but she feels very weak since surgery. She finds her hips roll out into ER with sleeping and she will wake up with anterior/groin pain in the am. Her radiating nerve pain has decreased overall since surgery. She does have a walker but she is walking on her own in the house. She comes into PT today without a walker or cane. She reports feeling very tight in her right hip as compared to her left. She is able to go up and down the stairs in her house leading with her left leg. She has another follow up with Dr. Honeycutt next week Prior Treatments and Tests Xray taken in August of 2022 shows bilateral hip arthritis most severe on the right Treatment Goals Patient/Caregiver Goals Harleen would like to improve her walking ability and walk without hip pain. She would like to improve overall core and hip strength Prior Functional Status Baseline Function- ADL's Needs Assist Baseline Function- Mobility Needs Assist Baseline Function- Gait pt had right sided hip pain with gait prior to surgery Current Functional Impairments (Reported) Functional Limitations- ADL's limited in ADL's that require bending and lifting and twisting due to fusion precautions Functional Limitations- Mobility/Gait pt is currently limited to standing and ambulating of 10 min or less PT-OP-C Subjective Start: 05/02/23 08:14 Freq: Status: Active Protocol: Document 07/13/23 15:15 DCW (Rec: 07/13/23 15:50 DCW [id number]) OP-PT Subjective Patient Comments Patient Comments Getting referral for follow-up with ortho regarding hip. Feels hip is limiting factor in ADL participation at this time. PT-OP-G Mobility & Gait Start: 05/02/23 14:11 Freq: Status: Active Protocol: Document 07/13/23 15:15 DCW (Rec: 07/13/23 15:34 DCW [id number]) OP Gait Assessment Factors Limiting Gait Function Factors Limiting Gait Function Decreased Strength,Limited Range of Motion,Pain Comments Gait Comments Pt occasionally uses cane/ walking sticks for longer distances. Notes she can get around her house and up/down stairs without AD. Uses grocery cart when trying to walk around store. PT-OP-K Range of Motion Start: 05/02/23 08:14 Freq: Status: Active Protocol: Document 07/13/23 15:15 DCW (Rec: 07/13/23 15:34 DCW [id number]) Hip Goniometric Range of Motion Hip right Hip ROM WFL No Testing Position Supine Flexion w/Knee Flexed 105 Straight Leg Raise 68 Extension 0 Abduction 18 Internal Rotation 11 External Rotation 46 PT-OP-M Strength Start: 05/02/23 14:11 Freq: Status: Active Protocol: Document 07/13/23 15:15 DCW (Rec: 07/13/23 15:34 DCW [id number]) Hip Strength Hip Manual Muscle Testing Right Flexion (L2) 4- Good- Extension (S1) 3 Fair Abduction 4- Good- Adduction 4- Good- Ankle/Foot Strength Ankle and Foot Manual Muscle Testing Right Dorsiflexion (L4) 4- Good- Plantarflexion (S1) 4 Good PT-OP-Q Treatments Start: 05/02/23 08:14 Freq: Status: Active Protocol: Document 07/11/23 15:19 AB (Rec: 07/11/23 16:19 AB [id number]) Therapeutic Exercises Supine Exercises piriformis stretch Side bilateral Reps/Minutes X1 60 seconds figure 4 stretch Side bilateral Reps/Minutes X1 60 seconds Hamstring Supine Exercise Name HS stretch Side right Reps/Minutes one minute X 2 Standing Exercises calf stretches on step Standing Exercise Name gastroc and soleus Side bilateral Reps/Minutes 60 seconds X 2 each hip flexor stretch on step Side right Reps/Minutes 60 sec X 3 Comments verbal and visual cues squat Standing Exercise Name mini squat Side bilateral Reps/Minutes X10 X2 counter bird dog Standing Exercise Name with abdominal bracing Side bilateral Reps/Minutes X10 Comments Verbal and visual cues Pallof Press Standing Exercise Name Pallof Press Side bilateral Resistance royal blue, level 4 band Reps/Minutes 1X10 Therapeutic Activity Therapeutic Activity Self STM with balls Reps/Minutes 4 min Comments at wall and in hooklying with tennis and lacrosse ball right gluteal area Manual Therapy Treatment Soft Tissue Mobilization right piriformis Mobilization Type Cross-Friction,Rolling, Sustained Pressure Intensity/Depth Moderate Body Position Sidelying Manual Techniques MET for right AI left PI and pubic shot gun Type Left AI right PI this session Reps/Duration 6 sec X 6 each Comments modified to seated post pubic shotgun Neuro Re-Education Treatment Other Activities sciatic nerve glide Details from hooklying HS stretch postion DF and PF AROM Reps/Duration X5 X 2 Comments Verbal cues PT-OP-T Assessment and Plan Start: 05/02/23 08:14 Freq: Status: Active Protocol: Document 07/13/23 15:15 DCW (Rec: 07/13/23 15:50 DCW [id number]) Physical Therapy Assessment Impairments Impairments Activity Tolerance,Functional Activities,Functional Mobility ,Gait,Pain,ROM,Strength Goals Modified oswestry low back pain disability questionaire Impairment pt scores 26 on the modified oswestry questionnaire Nonprofit Financial Controller Goal (LTG) Harleen is able to improve her score to 20% or better LTG Duration 12 weeks gait Impairment Harleen is limited to 10 min of standing and gait at this time due to increased right sided hip pain Nonprofit Financial Controller Goal (LTG) Harleen is able to increase her standing time to 20 min and is able to increase her walking distance to 1/2 mile or more LTG Duration 8 weeks weakness Impairment Harleen presents with weakness of the right tibialis anterior and hip and musculature Short Term Goal (STG) Harleen is educated on a home strenghtening program STG Duration Met Senior Living Goal (LTG) Harleen demonstrates improved strength of the tibialis anterior and hip abduction/ER on the Right with MMT LTG Duration 8 Hip ROM Impairment Pt with limited R hip mobility secondary to pain. She is limited to 100 degrees hip flexion Short Term Goal (STG) Harleen is educated on a home stretching program for her hips STG Duration Met Senior Living Goal (LTG) pt has improved hip mobility into hip extension and is able to improve hip flexion to 110 degrees in supine LTG Duration Met - 112 degrees R flexion Progress Towards Goals Progress Towards Goals Slow Progress due to Medical Issues Assessment Summary Assessment Pt overall progress has plateaued secondary to degenerative changes in her right hip limiting further rehabilitation. Pt pain levels and functional mobility largely unchanged at this time . Pt will be discharged from skilled therapy, plan to return to ortho for discussion regarding next step for hip. Physical Therapy Plan Frequency and Duration Frequency of Treatment 2x/Week Duration of treatment (weeks) 8 Plan of Care Start Date 06/27/23 Plan of Care End Date 08/27/23 Therapeutic Interventions Therapeutic Interventions Balance Training,Gait Training ,Home Exercise Program,Manual Therapy,Neuromuscular Re- education,Patient/Caregiver Education,Self-Care/Home Management,Therapeutic Exercises Discharge Physical Therapy Discharge Reasons Plateau in Progress
== END 2023-07-18 10:49 | disposition home or self-care (01) ==
LOC: PHYS 15:15
PROVIDERS: Family Provider Nurse Practitioner; PCP Nurse Practitioner; Referring Provider Orthopaedic Surgery Orthopaedic Surgery of the Spine; Visit Provider Orthopaedic Surgery Orthopaedic Surgery of the Spine
DX: M43.17 Spondylolisthesis, lumbosacral region (principal); M48.061 Spinal stenosis, lumbar region without neurogenic claudication; M25.551 Pain in right hip; M25.659 Stiffness of unspecified hip, not elsewhere classified; M25.859 Other specified joint disorders, unspecified hip
CPT/HCPCS: 97110; 97112; 97116; 97140; 97162

== ENCOUNTER → 2023-07-20 07:42 | Outpatient (CLI) | payer MEDICARE, SELFPAY ==
[2023-03-13 15:00] VITALS: BMI 35.3
[2023-07-20 08:52] LABS: Alanine Aminotransferase 27 IU/L (<35); Albumin 4.3 g/dL (3.5-5.0); Albumin Globulin Ratio 1.5 (1.0-2.8); Alkaline Phosphatase 60 U/L (38-126); Aspartate Aminotransferase 23 IU/L (14-36); BUN Creatinine Ratio 17.3 (6-22); Bilirubin Total 0.7 mg/dL (0.2-1.3); Blood Urea Nitrogen 19 mg/dL (7-17); Calcium 9.3 mg/dL (8.4-10.2); Carbon Dioxide 32 mmol/L (22-32); Chloride 101 mmol/L (98-107); Cholesterol 133 mg/dL (140-199); Estimated Glomerular Filt Rate 53 mL/min (>60); Globulin 2.8 g/dL (1.7-4.1); Glucose 106 mg/dL (80-110); HDL Cholesterol 78 mg/dL (40-60); HEMOLYSIS < 15 (0-50); LDL Cholesterol Calculated 38 mg/dL (<100); Magnesium 2.1 mg/dL (1.6-2.3); Sodium 138 mmol/L (137-145); Total Protein 7.1 g/dL (6.3-8.2); Triglycerides 87 mg/dL (35-150)
[2023-07-20 09:18] LABS: Thyroid Stimulating Hormone 3.01 uIU/mL (0.47-4.68)
--- NOTE | 2023-07-20 11:10 | DI.RAD.S_ITS ---
PROCEDURE: XR DEXA AXIAL SKELETON INDICATIONS: post menopausal osteoporosis COMPARISON: [facility], [place], XR DEXA AXIAL SKELETON, 01/15/2021, 12:03. [facility], CR, XR DEXA AXIAL SKELETON, 08/13/2019, 14:44. FINDINGS: Lumbar Spine: Bone mineral density 0.764 g/cm2, T score -2.9, decreased by 5.4 % when compared to the prior exam. Left Hip: Bone mineral density 0.874 g/cm2, T score -0.6, decreased by 5.3 % when compared to the prior exam. Left Femoral Neck: Bone mineral density was 0.689 g/cm2, T score -1.4. Right Hip: Bone mineral density 0.811 g/cm2, T score -1.1, decreased by 6.2 % compared to the prior exam Right Femoral Neck: Bone mineral density is 0.756 g/cm2, T score -0.8. Fracture Risk Calculation (when applicable): 10-year fracture risk of a major osteoporotic fracture 10 % and of a hip fracture 1.7 %. (T score greater or equal to -1.0 to: NORMAL) (T score from -1.1 to -2.4: OSTEOPENIA) (T score less than or equal to -2.5: OSTEOPOROSIS) IMPRESSION: By WHO criteria, patient has osteoporosis. Follow-up guidelines as follows: Osteoporosis: Consider a repeat DEXA and Vertebral Fracture Assessment (VFA) exam in 2 years or sooner if medically necessary, to reassess this patient's status. Osteopenia: Consider a repeat DEXA in 2-3 years to reassess this patient's status, or if there is a new clinical indication. Normal: Consider a repeat DEXA in 5 years or sooner, or if there is a new clinical indication. Approved by: Min Nelson M.D. on 07/20/2023 at 13:34
== END ==
PROVIDERS: Family Provider Nurse Practitioner; PCP Nurse Practitioner; Referring Provider Nurse Practitioner; Visit Provider Nurse Practitioner
DX: R79.89 Other specified abnormal findings of blood chemistry (principal); E78.41 Elevated Lipoprotein(a); M81.0 Age-related osteoporosis without current pathological fracture; I10 Essential (primary) hypertension; F32.A Depression, unspecified; E03.9 Hypothyroidism, unspecified; Z79.899 Other long term (current) drug therapy
CPT/HCPCS: 36415; 77080; 80053; 80061; 83735; 84443

== ENCOUNTER → 2023-08-28 10:05 | Outpatient (CLI) | payer MEDICARE, SELFPAY ==
[2023-03-13 15:00] VITALS: BMI 35.3
--- NOTE | 2023-08-28 10:31 | EKG_ITS ---
[place] [address] [place] [id number] Test Date: 2023-08-28 Pat Name: Harleen Kaur Department: [facility] Room: Gender: Female Reprint Sorter: KALEB : 1950 Requested By: Order Number: [id number] Reading MD: Carlos Carey Measurements Intervals [place] Rate: 64 P: 66 WY: 242 QRS: -17 QRSD: 86 T: 77 QT: 408 QTc: 420 Interpretive Statements Sinus rhythm with 1st degree AV block Low voltage QRS Electronically Signed On 08-29-2023 18:25:54 PDT by Carlos Carey
[2023-08-28 11:25] LABS: Hemoglobin A1C% w Est Avg Glu 5.6 % (4.0-6.0)
[2023-08-28 11:33] LABS: Add Manual Diff / Slide Review NO; Basophils Absolute Auto 0 /uL (0-100); Basophils Percent Auto 0.7 % (0-2); Eosinophils Absolute Auto 100 /uL (0-450); Eosinophils Percent Auto 2.1 % (2-4); Hematocrit 40.5 % (36-46); Hemoglobin 13.7 g/dL (12.0-16.0); Lymphocytes Absolute Auto 2200 /uL (1100-4500); Lymphocytes Percent Auto 40.6 % (25-40); Mean Corpuscular HGB Conc 33.8 % (30-36); Mean Corpuscular Hemoglobin 31.8 PG (26-34); Monocytes Absolute Auto 500 /uL (0-900); Monocytes Percent Auto 8.7 % (3-14); Neutrophils Absolute Auto 2600 /uL (1500-7000); Neutrophils Percent Auto 47.9 % (50-75); Platelet Count 205 X10^3/uL (150-400); Red Cell Distribution Width 14.3 % (11.6-14.8); White Blood Cell Count 5.4 X10^3/uL (4.5-11.0)
[2023-08-28 12:01] LABS: Creatinine Urine Random 61.85 mg/dL
[2023-08-28 12:01] LABS: Appearance Urine UA SL CLOUDY; Bilirubin Urine UA NEGATIVE (NEGATIVE); Color Urine UA YELLOW; Glucose Urine UA NEGATIVE (Negative); Ketones Urine UA NEGATIVE (NEGATIVE); Leukocyte Esterase Urine UA 3+ (NEGATIVE); Nitrite Urine UA NEGATIVE (Negative); Occult Blood Urine UA 1+ (Negative); Protein Urine UA NEGATIVE (Negative); Urobilinogen Urine UA 0.2 E.U./dL (0.2)
[2023-08-28 12:02] LABS: Alanine Aminotransferase 18 IU/L (<35); Albumin 4.4 g/dL (3.5-5.0); Albumin Globulin Ratio 1.3 (1.0-2.8); Alkaline Phosphatase 63 U/L (38-126); Aspartate Aminotransferase 23 IU/L (14-36); Bilirubin Total 0.7 mg/dL (0.2-1.3); Blood Urea Nitrogen 13 mg/dL (7-17); Calcium 9.9 mg/dL (8.4-10.2); Carbon Dioxide 32 mmol/L (22-32); Chloride 101 mmol/L (98-107); Estimated Glomerular Filt Rate > 60 mL/min (>60); Globulin 3.5 g/dL (1.7-4.1); Glucose 95 mg/dL (80-110); HEMOLYSIS < 15 (0-50); Potassium 4.3 mmol/L (3.4-5.1); Sodium 138 mmol/L (137-145); Total Protein 7.9 g/dL (6.3-8.2)
[2023-08-28 12:05] LABS: Microalbumin Urine Random 2.4 mg/dL (0-1.6)
[2023-08-28 12:18] LABS: Urine Volume 10mL (spun)
[2023-08-28 12:19] LABS: Bacteria Urine Few (2-10); Culture Indicated Urine Specimen Cultured; RBC Urine 5-10/HPF (0-5/HPF); Squamous Epithelial Cell Urine 10-30 /HPF (0-5/HPF); WBC Urine 30-100/HPF (0-5/HPF)
== END ==
LOC: RESP 10:06
PROVIDERS: Family Provider Nurse Practitioner; PCP Nurse Practitioner; Referring Provider Orthopaedic Surgery; Visit Provider Orthopaedic Surgery
DX: Z01.818 Encounter for other preprocedural examination (principal); R73.9 Hyperglycemia, unspecified; Z01.812 Encounter for preprocedural laboratory examination; N39.0 Urinary tract infection, site not specified; R79.9 Abnormal finding of blood chemistry, unspecified; R79.89 Other specified abnormal findings of blood chemistry; E78.41 Elevated Lipoprotein(a); I10 Essential (primary) hypertension; F32.A Depression, unspecified; E03.9 Hypothyroidism, unspecified; Z79.899 Other long term (current) drug therapy; R73.01 Impaired fasting glucose; R73.03 Prediabetes
CPT/HCPCS: 36415; 80053; 81001; 82043; 82570; 83036; 85025; 87086; 93005

== ENCOUNTER → 2023-08-30 15:20 | Outpatient (CLI) | payer MEDICARE, SELFPAY ==
[2023-03-13 15:00] VITALS: BMI 35.3
== END ==
PROVIDERS: Family Provider Nurse Practitioner; PCP Nurse Practitioner; Referring Provider Nurse Practitioner Family; Visit Provider Nurse Practitioner Family
DX: N89.8 Other specified noninflammatory disorders of vagina (principal)
CPT/HCPCS: 87210

== ENCOUNTER 2023-09-26 06:08 | Day surgery (SDC) | payer MEDICARE, SELFPAY ==
[2023-03-13 15:00] VITALS: BMI 35.3
[2023-09-21 12:35] VITALS: BMI 30.8
[2023-09-26] VITALS (12 sets, daily range): BP systolic 110–174; BP diastolic 62–100; PULSE 60–76; RESP 12–18; TEMP 35.7–36.9; O2SAT 93–99; BMI 31.8
--- NOTE | 2023-09-26 | DI.RAD.S_ITS ---
PROCEDURE: XR HIP W PEL IF DONE RT 4V INDICATIONS: total rt hip TECHNIQUE: Fluoroscopic guidance utilized for a right total hip arthroplasty placement COMPARISON: None. FINDINGS: Fluoroscopic images submitted for a right total hip arthroplasty placement. Please see operative note for further discussion. IMPRESSION: Fluoroscopic guidance. Dictated by: Anderson Holcomb M.D. on 09/26/2023 at 15:07 Approved by: Anderson Holcomb M.D. on 09/26/2023 at 15:08
--- NOTE | 2023-09-26 06:00 | DI.RAD.S_ITS ---
PROCEDURE: XR HIP W PEL IF DONE RT 2V INDICATIONS: AMADOR TECHNIQUE: AP pelvis and lateral view of the hip acquired. COMPARISON: [facility], CR, XR HIP W PEL IF DONE RT 2V, 09/19/2022, 11:38. FINDINGS: Bones: Patient is status post right hip arthroplasty, with hardware components in expected positions. The hip joint appears congruent. The visualized bony structures appear intact. Soft tissues: Overlying postoperative changes are noted. No suspicious soft tissue densities. IMPRESSION: Expected post-operative appearance of a hip arthroplasty. Dictated by: Anderson Holcomb M.D. on 09/26/2023 at 11:23 Approved by: Anderson Holcomb M.D. on 09/26/2023 at 11:23
[2023-09-26] MEDS: LACTATED RINGERS 1,000 ML 42 ML IV ×2 (07:07→09:44)
[2023-09-26] MEDS: ACETAMINOPHEN 325 MG TABLET 975 MG PO (07:07)
[2023-09-26] MEDS: CELECOXIB 200 MG CAPSULE PO (07:07)
[2023-09-26] MEDS: VANCOMYCIN 1,000 MG/200 ML PIGGYBACK 200 MG IV (07:08)
--- NOTE | 2023-09-26 07:41 | P.OP_ITS ---
Operative Date/Time/Diagnoses Date of procedure: 09/26/23 Time of procedure: 07:41 Pre-op diagnosis: right hip OA Post-op diagnosis: same Procedure & Clinicians Procedure: Right total hip arthroplasty anterior approach Same procedure as scheduled: Yes Indications: The patient has had progressively worsening right hip pain with radiographic c hanges consistent with arthritis. Non-operative management has failed and the patient has requested total hip replacement. The risks, benefits and alternatives to surgery were discussed with the patient prior to proceeding. Risks discussed included, but were not limited to, failure to relieve pain, leg length discrepancy, dislocation, stiffness, infection, nerve damage, deep venous thrombosis, pulmonary embolism, stroke, coma, heart attack, permanent paralysis and , as well as the potential need for eventual revision of the prosthetic. Surgeon: Nichole Almazan Tanning Solution Maker: Mario Bell Anesthesia Type: General and Spinal Operative Notes Findings: Severe right hip OA, adequate stability, adequate bone Closure Type: primary Specimen(s): none sent Prosthetic devices, grafts, tissues, transplants, or devices: Almazan and nephew 50 mm R3, neutral poly liner,one 6.5 mm screw, polar stem standard offset size 1 standard with collar, 28 x -3 Oxinium head, 28 by 38 mm dual mobility Estimated Blood Loss (mL): 250 Blood products transfused: none Procedure in detail: The patient was brought to the operating room. Patient was carefully positioned in the supine position. Time-out was performed and antibiotics were given. Anesthesia was induced. She was positioned in the on the table in order to allow hyperextension of the hip. The right lower extremity was prepped and draped in a standard sterile fashion. An anterior right hip incision was made 1 fi ngerbreadth lateral to the anterior superior iliac spine and extended distally towards the greater trochanter. Dissection was carried out through skin and subcutaneous tissues. Superficial hemostasis was achieved. The fascia over the tensor fascia rain was defined and incised with a knife. Two Allis clamps were used to grasp the fascia. Tensor fascia rain was retracted laterally. A gelpi retractor was placed. Dissection was carried out down along the neck. The circumflex vessels were carefully identified and cauterized with the Aqua Mantis. A PA was used during the procedure and was essential for intraoperative retraction and safe implantation of the components. There was good visualization of the femoral neck. A Cobra was placed superior to the neck and the gluteus fibers were carefully stripped from that superior aspect of the capsule. A 2nd retractor was placed along the inferior aspect of the neck. The rectus insertion along the capsule was partially released. A 3rd retractor that was then gently placed over the rim of the acetabulum under the rectus. Capsule was carefully incised and released from the intertrochanteric line circumferentially superior to the mid sagittal line and inferiorly to the mid sagittal line until the lesser trochanter was palpable. A tag stitch was placed both in the superior and inferior limb of the capsular insertion. Along the acetabulum capsule was also released up to the mid sagittal 12:00 position. A portion of the labrum was resected. A saw was used to perform an osteotomy at the level of the intertrochanteric line and the junction of the superior femoral neck leaving approximately 1 finger breath of residual inferior neck above the lesser trochanter. A 2nd cut was made along the femoral neck at the base of the head and a napkin ring of neck was removed. Corkscrew was placed in the femoral head and the head was removed without difficulty. Retractors were then repositioned around the acetabulum. Residual labrum was resected and additional osteophytes were removed. A reamer that was 4 mm below the templated size was placed by hand in the acetabulum and it was reamed to centralize the acetabulum. It was then reamed up to 2 under the templated size and fluoroscopy was brought in to confirm the position of the reaming and depth of reaming. I reamed 1 under the anticipated size. A trial cup was placed and noted that it was appropriately sized and fluoroscopy confirmed position and depth. The component was open and inserted without difficulty fluoroscopic imaging was used to confirm that the cup had been adeq uately seated and was well positioned. It was further stabilized with a single screw. Dual mobility was planned because of the patient's recent lower lumbar spine fusion. Dual mobility Liner was placed. The cup was tested and noted to be stable. Attention was then directed to the femur. The femur was gently hyperextended additional capsular release was performed as needed in order to allow adequate visualization of the proximal femur with elevation of the femur. Patient was placed in a hyperextended slightly adducted position with maximum external rotation. Box osteotome was used to check for any residual neck as well as sclerotic bone along the trochanter. [place] pepper was placed in the femur. Additional broaching was performed. Canal finder was used to determine the alignment of the canal and position. Size 1 broach was placed. The canal was then appropriately broached up to the templated size as long as there was adequate stability of the broach and serial advancement of the broach without excessive impingement. Specific attention was directed at avoiding varus attempting to direct the distal aspect of the broach more anteriorly and avoiding excessive anteversion. Trial reduction showed acceptable range of motion, good stability, no posterior impingement, congregation of leg length and appropriate lateral shuck. I also hyperflexed the hip and checked that there was no impingement anteriorly and there was good stability with flexion, adduction and internal rotation. She had good stability over all but because of the patient's previous spine fusion was opted to proceed with a dual mobility cup. Marcaine and Exparel were injected. The stem was placed without difficulty. Repeat trial reduction and x-ray showed acceptable overall position, length, and no evidence of the femoral fracture. Final head was placed. Wound was meticulously irrigated with normal saline. The hip was reduced and additional Exparel and Marcaine were injected. The capsule was closed with interrupted nonabsorbable sutures. The fascia of the tensor was closed with interrupted and running Vicryl. No drain was placed. Any tensor fascia rain muscle that appeared to be contused or injured which was a minimal amount was carefully resected. Capsule around the tensor was injected with Exparel and Marcaine. The skin was closed with barbed stitches for the subcutaneous tissue and skin. We also used surgical glue. The wound was dressed sterilely. Brief Betadine soak was also used and was meticulously irrigated with normal saline. Patient was transferred to recovery room in satisfactory condition. Complications: none Post-operative Condition: stable Disposition: Acute Care Plan for aftercare: The patient will be maintained on a standard total hip replacement protocol with weight bearing as tolerated and anterior hip precautions. The patient will receive Aspirin and sequential compression devices for DVT prophylaxis. The patient will be discharged home when safe for the home environment.
[2023-09-26] MEDS: TRANEXAMIC ACID 1,000 MG VIAL 1000 MG INJ ×2 (08:07→10:11)
[2023-09-26] MEDS: CEFAZOLIN 2 GM/100 ML PREMIX 100 ML IV ×3 (08:09→23:44)
--- NOTE | 2023-09-26 08:31 | SUR.OPER ---
Supine on padded Cisne table with bilateral legs secured in padded positioning boots and suspended in positioning spars, operative leg in traction per surgeon. Head on one pillow. Arm on non-operative side secured on padded armboard <90 degrees abduction. Arm on operative side padded and resting across chest then secured with tape over sheet. Padded perineal post in place per surgeon.
[2023-09-26] MEDS: BUPIVACAINE 0.25% (PF) 30 ML, EPINEPHrine 0.15 MG INJ (09:03)
[2023-09-26] MEDS: BUPIVACAINE LIPOSOME 266 MG/20 ML VIAL INJ (09:05)
[2023-09-26] MEDS: ONDANSETRON 4 MG/2 ML INJ IV (10:58)
[2023-09-26] MEDS: hydrOXYzine 50 MG/ML INJ 25 MG IM (11:01)
[2023-09-26] MEDS: METOCLOPRAMIDE 10 MG/2 ML INJ IV (11:02)
[2023-09-26] MEDS: OXYCODONE IR 5 MG TABLET PO ×4 (11:04→23:44)
[2023-09-26] MEDS: ACETAMINOPHEN 325 MG TABLET 650 MG PO ×2 (11:43→23:43)
[2023-09-26] MEDS: LACTATED RINGERS 1,000 ML 100 ML IV ×2 (11:43→20:53)
--- NOTE | 2023-09-26 14:40 | PT.IIE ---
Current Diagnoses Unilateral primary osteoarthritis, right hip (09/26/23) Surgery Performed Operation Date: 09/26/23 07:45 Actual Procedures p Total Hip Arthroplasty/Anterior Approach(Right) - Nichole Almazan MD Surgical History (Last Reviewed 09/26/23 @ 06:56 by Kalyani Shelton, RN) Anesthesia History of back surgery History of gynecologic surgery (02/10/23) History of lumbar spinal fusion (02/15/23) Hx of colonoscopy (09/13/19) Uterine polyp (~2014) Medical History (Last Reviewed 09/26/23 @ 06:56 by Kalyani Shelton, RN) Anterolisthesis of lumbar spine Bone spur of femur Chronic lower back pain Class 2 obesity due to excess calories in adult Counseling regarding advanced care planning and goals of care Depression Elevated fasting glucose Elevated LFTs Fall[place] arch Family history of malignant hyperthermia Foot pain (~1987) Hip pain (~2016) Hyperlipidemia Hypertension Hypothyroidism (~2013) Pars defect Pre-diabetes Presence of orthotic device Rosacea Tinnitus (~2005) Physical Therapy Inpatient Evaluation/Re-Eval M1 PT/OT-IP Prior Functional Status Start: 09/26/23 16:37 Freq: NEEDED Status: Active Protocol: Document 09/26/23 14:40 AB (Rec: 09/26/23 16:49 AB [id number]) Medical Review Prior Functional Status Medical History Reviewed Yes Communication able to make needs known Mobility and Gait pt stated that she was modified independent with all mobilities: able to walk without AD indoors but occasionally uses a FWW; uses a 4WW for outdoor mobility Social History Household Members spouse Living Arrangements House Number of Floors (Floors) Two Floors Number of Stairs To Enter/Railing? 3 steps B rails to enter the house 15 steps R rail ascending to get to bedroom level; can stay on main level if needed but prefers to go upstairs; has couch and recliners to sleep on first level of the house; shower on 2nd level of the house Home Environment Standard Height Toilet,Walk in Shower,Built-In Shower Seat Home Equipment Front Wheel Walker,Four Wheel Walker,Raised Toilet Seat Without Armrests,Shower Seat with Backrest,Hand Held Shower M2 PT-IP Current Condition Start: 09/26/23 16:37 Freq: NEEDED Status: Active Protocol: Document 09/26/23 14:40 AB (Rec: 09/26/23 16:49 AB [id number]) Physical Therapy Current Condition Current Condition Evaluation Date 09/26/23 Treatment Diagnosis s/p R AMADOR anterior; difficulty in walking Onset Date 09/26/23 M3 PT-IP Subjective Start: 09/26/23 16:37 Freq: NEEDED Status: Active Protocol: Document 09/26/23 14:40 AB (Rec: 09/26/23 16:49 AB [id number]) Subjective Physical Therapy Visit Type Type Initial Evaluation Visit Start Time 14:40 Visit Stop Time 15:30 Number of VP DELIVERY Visits 0 Physical Therapy Visit Comments Patient Comments agreeable to do PT Therapy Pain Assessment Pain When Pain Assessed At Rest Pain Present Pain Present Pain Reported Location right anterior hip Intensity 5 Scale Used increases to 6/10 with mobility Pain Management Techniques Apply Cold,Modification of Treatment,Re-positioning, Timing of Activity with Medications M4 PT-IP Mobility and Gait Start: 09/26/23 16:37 Freq: NEEDED Status: Active Protocol: Document 09/26/23 14:40 AB (Rec: 09/26/23 16:49 AB [id number]) PT-Bed Mobility Assessment Rolling Type of Rolling Log Rolling Level of Assist Minimal Assistance Supine to Sit Supine to Sit Minimal Assistance PT-Transfer Assessment Sit to and From Stand Sit to and from Stand Minimal Assistance,1 Person Assistance,Use of Upper Extremities Equipment Transfer Assistive Device Gait Belt,Front Wheeled Walker Orthotic/Prosthetic Devices or Brace: No Transfers Transfer Destination Chair Transfer Technique ambulated Comments Mobility Comments pt supine in bed and agreed to do PT. spouse in room with pt . obtained PLOF and home set up from pt and spouse. pt slow to respond to questions and instructions. post-op folder provided and reviewed contents. educated pt and spouse regarding R hip anterior precautions. BP supine: 138/68. pt completed supine to sit SBA and cues. pt completed with log roll technique. pt has been doing log roll prior to sx due to back pain. pt able to sit on EOB. BP: 172/80. completed sit to stand min A and ambulated in room ~ 20 ft using FWW CGA to min A. pt just wants to sit on the chair and c/o increase hip pain. positioned pt on the chair. refused further activities. nurse aware of c/o pain. call light and table placed within reach. caregiver training set up for tomorrow at 9 am. Gait Assessment Gait Gait Assistance Required: Contact Guard Assist,Minimum Assistance Distance (Feet) 20 Able to Maintain Weight Bearing Status Yes During Gait Assistive Devices Assistive Device Gait Belt,Front Wheeled Walker Orthotic/Prosthetic Devices or Brace: No Gait Deviations General Gait Pattern Decreased Feet Clearance, Narrow Based Gait,Step-to Gait Factors Limiting Gait Function Factors Limiting Gait Function Decreased Activity Tolerance, Decreased Sensation,Decreased Strength,Difficulty Following Directions,Limited Range of Motion,Pain,Poor Balance,Poor Safety Awareness PT-Balance Assessment Sitting Balance and Reactions Static Sitting Balance Ability Good Dynamic Sitting Balance Ability Good Standing Balance and Reactions Static Standing Balance Ability Fair Dynamic Standing Balance Ability Fair Device Used FWW M5 PT-IP Objective Assessments Start: 09/26/23 16:37 Freq: NEEDED Status: Active Protocol: Document 09/26/23 14:40 AB (Rec: 09/26/23 16:49 AB [id number]) Orientation Orientation/Cognition Level of Alertness Alert Orientation Name,Place,Situation Language Function Ability No Deficits Noted Safety Awareness Decreased Safety Awareness Gross Range of Motion Lower Extremity ROM Assessment Within Functional Limits Strength Lower Extremity Strength Assessment Right Impaired Hip 3+/5 Knee 4-/5 Coordination Assessment Gross Coordination Gross Coordination WNL Sensation Assessment Sensation Gross Sensation Right LE Impaired Sensation Description Numbness Comments Sensation Comments still slightly numb on RLE per pt. Muscle Tone Muscle Tone WNL Yes M6 PT-IP Treatment Start: 09/26/23 16:37 Freq: NEEDED Status: Active Protocol: Document 09/26/23 14:40 AB (Rec: 09/26/23 16:49 AB [id number]) Physical Therapy Treatment Exercises Exercises Heel Slides Education Education Provided Precautions,Weight Bearing Status,Post-Op Packet,Safety M7 PT-IP Assessment and Plan Start: 09/26/23 16:37 Freq: NEEDED Status: Active Protocol: Document 09/26/23 14:40 AB (Rec: 09/26/23 16:49 AB [id number]) PT Summary Assessment and Plan Potential Rehabilitation Potential Fair Status of Condition at Evaluation Evolving Summary Impairments Pain,ROM,Strength,Balance, Coordination,Sensation,Bed Mobility,Transfers,Gait, Activity Tolerance Assessment Summary pt is a 72 y/o F s/p R AMADOR anterior approach POD 0. pt with R hip anterior precautions and is WBAT. pt requiring min A with mobility using FWW and was not able to tolerate much activities due to c/o increase R hip pain. caregiver training set up for tomorrow at 9 am. will continue to assess. Goals Bed Mobility Goal Independent Transfer Goal Independent,Front Wheeled Walker Gait Goal Independent,Front Wheel Walker Gait Distance 150 Other Goals up/down 3 steps B rails SBA up/down 15 steps R rail SBA Days to Meet Goals 5 Frequency of Treatment Frequency Of Treatment Twice a Day Treatment Plan Physical Therapy Treatment Plan Bed Mobility Training,Transfer Training,Gait Training, Therapeutic Exercise,Balance Retraining,Post Op Education, Discharge Planning,Hot or Cold Pack,Neuromuscular Re-ed, Coordination Retraining,Manual Therapy Other Recommendations and Next Treatment caregiver trainin/31 @ 9 Focus am Precautions Anterior Hip Precautions No Hip Extension,No Hip External Rotation Weight Bearing Status Weight Bearing Status Weight Bear as Tolerated Allowed Weight Bearing Amount (enter % RLE WBAT or #) (%) Recommendations To Nursing Amount of Assist Needed 1 Person Assist Discharge Recommendations PT Discharge Recommendations Home with Assistance, Outpatient PT Transportation Needs at Discharge Private Vehicle
--- NOTE | 2023-09-26 16:02 | OT.IPNOTE ---
Attempted OT eval and pt states too groggy and wanting to wait until tomorrow.
[2023-09-26] MEDS: ATORVASTATIN 20 MG TABLET 10 MG PO (20:48)
[2023-09-26] MEDS: ASPIRIN EC 81 MG TABLET PO (20:48)
[2023-09-26] MEDS: DOCUSATE 100 MG CAPSULE PO (20:48)
[2023-09-26] MEDS: buPROPion SR 100 MG TAB PO (20:49)
[2023-09-26] MEDS: IBUPROFEN 400 MG TABLET PO (23:43)
[2023-09-27] MEDS: LEVOTHYROXINE 88 MCG TABLET PO (05:04)
[2023-09-27 05:21] LABS: Hematocrit 33.7 % (36-46); Hemoglobin 11.5 g/dL (12.0-16.0)
--- NOTE | 2023-09-27 07:26 | PM.DS.1 ---
History of Present Illness History of Present Illness Date Patient Seen: 09/27/23 Time Patient Seen: 07:00 Chief complaint: right AMADOR anterior Narrative: Operative Date/Time/Diagnoses Date of procedure: 09/26/23 Time of procedure: 07:41 Pre-op diagnosis: right hip OA Post-op diagnosis: same Procedure & Clinicians Procedure: Right total hip arthroplasty anterior approach Same procedure as scheduled: Yes Indications: The patient has had progressively worsening right hip pain with radiographic changes consistent with arthritis. Non-operative management has failed and the patient has requested total hip replacement. The risks, benefits and alternatives to surgery were discussed with the patient prior to proceeding. Risks discussed included, but were not limited to, failure to relieve pain, leg length discrepancy, dislocation, stiffness, infection, nerve damage, deep venous thrombosis, pulmonary embolism, stroke, coma, heart attack, permanent paralysis and , as well as the potential need for eventual revision of the prosthetic. Surgeon: Nichole Almazan Web Operations Specialist: Mario Bell Anesthesia Type: General and Spinal Operative Notes Findings: Severe right hip OA, adequate stability, adequate bone Closure Type: primary Specimen(s): none sent Prosthetic devices, grafts, tissues, transplants, or devices: Almazan and nephew 50 mm R3, neutral poly liner,one 6.5 mm screw, polar stem standard offset size 1 standard with collar, 28 x -3 Oxinium head, 28 by 38 mm dual mobility Estimated Blood Loss (mL): 250 Blood products transfused: none Discharge Providers Provider Date of admission: 09/26/23 Discharge Date: 09/27/23 Primary care physician: DALE Jimenez Consults: 09/26/23 06:00 Consult to Anesthesiology Routine Comment: Consulting Provider: Anesthesiologist Reason for consultation: Regional block for post operative pain control Has provider been notified: No 09/26/23 11:29 Consult to Discharge Planning Routine Comment: Consult to Occupational Therapy Evaluate & Treat Comment: Physician Instructions: Evaluate and treat Consult to Physical Therapy Evaluate & Treat Comment: Physician Instructions: post op AMADOR protocol Discharge provider: Dmitriy Ken PA-C Summary Hospital Course Discharge Diagnosis: Status post right total hip arthroplasty. Hospital Course: Multimodal pain control and physical therapy. Status at Discharge Cognitive/behavioral status at discharge: oriented Functional status at discharge: uses cane/walker Overall status at discharge: patient is back to baseline Time Spent with Patient Time spent: Less than 30 minutes Exam Vital Signs (past 8 hours): Oxygen Delivery Method Room Air Oxygen Flow Rate 0 Narrative Exam Narrative: She says he has no pain. Denies any numbness or tingling down the right leg. Denies any fever chills nausea or vomiting. Feels is ready to go home. Patient is able to transition out of bed with the walker. No increased pain bilaterally to the posterior calf or thighs. No warmth noted upon palpation. Able to dorsiflex and plantarflex against resistance bilaterally at the ankles. Resp Effort & Inspection: normal respiratory effort and able to speak in complete sentences Objective Labs 09/27/23 04:25 Labs: Laboratory Results - last 24 hr 09/27/23 04:25 Hgb 11.5 L Hct 33.7 L PFSH Medical History Elevated fasting glucose Pre-diabetes Bone spur of femur Class 2 obesity due to excess calories in adult Family history of malignant hyperthermia Anterolisthesis of lumbar spine 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 Hyperlipidemia Counseling regarding advanced care planning and goals of care Presence of orthotic device Chronic lower back pain Elevated LFTs Hypertension Rosacea Depression Hip pain (~2017) Foot pain (~1987) Tinnitus (~2005) Hypothyroidism (~2013) Surgical History History of gynecologic surgery (02/10/23) History of lumbar spinal fusion (02/15/23) History of back surgery Hx of colonoscopy (09/13/19) Anesthesia Uterine polyp (~2014) Family History Father Stroke Mother Hypertension Social History household members: spouse Smoking Status: Never smoker alcohol intake: current Discharge Assessment & Plan Assessment and Plan Assessment: Status post right total hip arthroplasty. Plan of Treatment: Discharge to home. Patient is already been prescribed postoperative medications and discussed with their usage. Continue with aspirin 81 mg twice a day for 6 weeks. Ambulate with assistive devices full weightbearing activity as tolerated. Initiate physical therapy in 5 to 10 days. Wound check at clinic in 2 weeks. Discharge Plan Discharge Plan Patient Disposition: Home Provider Discharge Comment: Discharge to home if safe and able to mobilize pending PT approval Discharge orders & Medications Discharge Orders: Discharge (Order); Ordered 09/27/23 Ordered By: Dmitriy Ken Prescriptions: New aspirin 81 mg tablet,delayed release (DR/EC) 81 mg PO BID Qty: 60 0RF Continued lisinopril-hydrochlorothiazide 20-12.5 mg tablet 1 tab PO DAILY Qty: 90 3RF levothyroxine 88 mcg tablet See Rx Instructions .ROUTE .COMPLEX Qty: 90 3RF Dose Instruction: TAKE 1 TABLET(88 MCG) BY MOUTH DAILY 30 MINUTES BEFORE BREAKFAST ON AN EMPTY STOMACH Rx Instructions: TAKE 1 TABLET(88 MCG) BY MOUTH DAILY 30 MINUTES BEFORE BREAKFAST ON AN EMPTY STOMACH bupropion HCl 100 mg tablet sustained-release 12 hr See Rx Instructions .ROUTE .COMPLEX Qty: 180 3RF Dose Instruction: TAKE 1 TABLET(100 MG) BY MOUTH TWICE DAILY FOR DEPRESSION Rx Instructions: TAKE 1 TABLET(100 MG) BY MOUTH TWICE DAILY FOR DEPRESSION rosuvastatin 5 mg tablet 5 mg PO DAILY Qty: 90 3RF Rx Instructions: Take 1 tab at bedtime daily for elevated cholesterol Semaglutide 1mg/ml See Rx Instructions SUBCUT .COMPLEX Qty: 2 0RF Rx Instructions: Inject 0.5mg SQ weekly x4 weeks, 1 month worth at a time lisinopril 20 mg tablet 20 mg PO DAILY Qty: 90 3RF Rx Instructions: Take 1 tab every evening in addition to the lisinopril/HCTZ scheduled in the morning daily ibuprofen 200 mg capsule 400 mg PO QID acetaminophen 500 mg capsule 1,000 mg PO TID PRN (Reason: Pain) Rx Instructions: NTE 3000mg/24 hours Follow up/Referrals: Joanne Cartagena ARNP [Primary Care Provider] - Nichole Almazan MD [Physician] - 10/10/23 1:00 pm (Follow up w/ Ivan Ken PA-C, at [facility] in [place].) Diet/Activity/Treatments Diet: Diet as Tolerated Activity: Ambulate multiple times a day. Use a cane or walker as needed. Full weight on leg. Cold/Heat Therapy: Use ice multiple times a day. Skin/Wound/Dressing Care Skin care: Leave dressing on. Okay to shower Report to your healthcare provider any signs of infection, such as:: chills, fever, night sweats, increased pain, unusual drainage and unusual redness Dressing: Leave dressing on. Do not soak in a bath or hot tub Visit Report/Discharge Packet Instructions: Constipation, DI for Hip Replacement, DI for Prescription Opioid Use Stand Alone Forms: Patient Portal/API, Stroke Signs & Symptoms, Surgery Discharge Discharge Data Primary Care Provider: Joanne Cartagena Attending Provider: Nichole Almazan VTE Deep Vein Thrombosis/Pulmonary Embolism Present on Admission: No
[2023-09-27 07:53] VITALS: BP 141/71; PULSE 74; RESP 16; TEMP 36.7; O2SAT 96
--- NOTE | 2023-09-27 08:53 | OT.IP.EVAL ---
Current Diagnoses Unilateral primary osteoarthritis, right hip (09/26/23) Surgery Performed Operation Date: 09/26/23 07:45 Actual Procedures p Total Hip Arthroplasty/Anterior Approach(Right) - Nichole Almazan MD Past Medical History (Last Reviewed 09/26/23 @ 06:56 by Kalyani Shelton, RN) Anterolisthesis of lumbar spine Bone spur of femur Chronic lower back pain Class 2 obesity due to excess calories in adult Counseling regarding advanced care planning and goals of care Depression Elevated fasting glucose Elevated LFTs [place] Family history of malignant hyperthermia Foot pain (~1987) Hip pain (~2016) Hyperlipidemia Hypertension Hypothyroidism (~2013) Pars defect Pre-diabetes Presence of orthotic device Rosacea Tinnitus (~2005) Surgical History (Last Reviewed 09/26/23 @ 06:56 by Kalyani Shelton, LIZZY) Anesthesia History of back surgery History of gynecologic surgery (02/10/23) History of lumbar spinal fusion (02/15/23) Hx of colonoscopy (09/13/19) Uterine polyp (~2014) Occupational Therapy Inpatient Evaluation/Re-Eval M1 PT/OT-IP Prior Functional Status Start: 09/26/23 16:37 Freq: NEEDED Status: Active Protocol: Document 09/27/23 08:54 [facility] (Rec: 09/27/23 09:07 [facility] [id number]) Medical Review Prior Functional Status Medical History Reviewed Yes Communication able to make needs known Mobility and Gait pt stated that she was modified independent with all mobilities: able to walk without AD indoors but occasionally uses a FWW; uses a 4WW for outdoor mobility Activities of Daily Living and IADL's Pt able to do ADL and IADL needs but had pain. Social History Household Members spouse Living Arrangements House Number of Floors (Floors) Two Floors Number of Stairs To Enter/Railing? 3 steps B rails to enter the house 15 steps R rail ascending to get to bedroom level; can stay on main level if needed but prefers to go upstairs; has couch and recliners to sleep on first level of the house; shower on 2nd level of the house Home Environment Standard Height Toilet,Walk in Shower,Built-In Shower Seat Home Equipment Front Wheel Walker,Four Wheel Walker,Bedside Commode,Raised Toilet Seat Without Armrests, Shower Seat with Backrest,Hand Held Shower M2 OT-IP Current Condition Start: 09/27/23 08:53 Freq: Status: Active Protocol: Document 09/27/23 08:54 [facility] (Rec: 09/27/23 09:07 [facility] [id number]) Occupational Therapy Current Condition Current Condition Evaluation Date 09/27/23 Treatment Diagnosis S/P R AMADOR Anterior approach Diagnosis Onset Date 09/26/23 Post Operative Precautions Anterior Hip Precautions No Hip Extension,No Hip External Rotation M3 OT- IP Subjective and Pain Start: 09/27/23 08:53 Freq: Status: Active Protocol: Document 09/27/23 08:54 [facility] (Rec: 09/27/23 09:07 [facility] [id number]) OT- Subjective Occupational Therapy Visit Type Type Initial Evaluation Visit Start Time 08:15 Visit Stop Time 08:53 Occupational Therapy Visit Comments Patient Comments Pt agreed to get dressed and pt's present for caregiver training. Patient/Caregiver Goals TO go home. OT Pain Assessment Pain When Pain Assessed At Rest Pain Present Pain Present Pain Reported Location right anterior hip Intensity 2 Scale Used Numeric (0 - 10) M4 OT- IP ADL's Start: 09/27/23 08:53 Freq: Status: Active Protocol: Document 09/27/23 08:54 [facility] (Rec: 09/27/23 09:07 [facility] [id number]) OT [id number] General Evaluation Self-Feeding Ability Independent OT ADL-Grooming Comments OT Grooming Comments Not performed. OT ADL-Oral Care Comments Oral Care Comments NOt performed. OT ADL-Dressing General Eval Upper Body Dressing Ability Independent Lower Body Dressing Ability Minimal Assistance Areas Needing Assistance Socks,Shoes Assistive Devices Dressing Assistive Devices Microstrategy Reports Developer,Sock Aid Comments OT Dressing Comments Able to practice use of LB dressing equipment and just needing assist for her laces. Educated pt to sit to get dressed. To dress her RLE first and take out last. OT ADL-Toileting Comments OT Toileting Comments Pt states did prior. Pt would benefit form wearing pads and use of BSC and to call for to assist especially at night. Educated pt of being mindful of her RLE positioning during ADL needs. OT ADL-Bathing Comments OT Bathing Comments Educated pt on care of dressing while showering . M5 OT- IP IADL's Start: 09/27/23 08:53 Freq: Status: Active Protocol: Document 09/27/23 08:54 [facility] (Rec: 09/27/23 09:07 [facility] [id number]) OT-Instrumental Activities of Daily Living Deficits IADL Deficits Identified Deficits Home Safety Awareness Awareness of Need for Assistance at Home Good Awareness Ability to Problem Solve Emergency Able to Problem Solve Situations Home Safety Comments Pt's able to assist as needed. Meal Preparation Meal Preparation Caregiver Provides Assist Parking Supervisor Parking Supervisor Caregiver Provides Assist M6 OT- IP Functional Cognition Start: 09/27/23 08:53 Freq: Status: Active Protocol: Document 09/27/23 08:54 [facility] (Rec: 09/27/23 09:07 [facility] [id number]) Cognitive Factors Limiting Selfcare Function Cognitive Ability Level of Alertness Alert Patient Orientation Name,Age,Birthday,Month,Date, Year,Day of Week,Place, Situation Attention Span Ability Capable of Focused Attention, Capable of Sustained Attention Ability to Follow Commands Able to Follow One Step Commands Safety Awareness Decreased Ability to Apply Precautions Cognitive Comments Cognitive Assessment Comments Pt able to follow commands and still needing vc to follow her hip precautions especially during bed mobility needs. OT- Vision and Hearing OT- Hearing Assessment OT- Hearing Assessment WFL OT- Vision Assessment Visual Acuity Glasses All The Time Visual Attentiveness WFL Occular Pursuits WFL M7 OT- IP Mobility and Balance Start: 09/27/23 08:53 Freq: Status: Active Protocol: Document 09/27/23 08:54 [facility] (Rec: 09/27/23 09:07 [facility] [id number]) OT- Bed Mobility Assessment Supine to Sit Supine to Sit Assist Minimal Assistance Sit to Supine Sit to Supine Assist Standby Assistance Scooting Scooting to Edge of Bed Standby Assistance OT-Transfer Assessment Sit to and From Stand Sit to and from Stand Standby Assistance Transfers Transfer Ability Standby Assistance Technique Transfer Destination Bed,Chair Devices Transfer Assistive Devices None,Gait Belt,Front Wheeled Walker Comments Mobility Comments Pt needing assist to get her leg out of the bed, pt tends to want to externally rotate her RLE outwards and having to assist her and remind her to keep her toes up to prevent from externally rotating her right hip. Also suggested pt to sleep with a towel under her right hip to prevent her right from externally rotating out. Able to have pt use the gait belt to assist to get out of bed and still needing CGA. Pt's aware will have to assist. OT- Balance Assessment Sitting Balance and Reactions Static Sitting Balance Ability Normal Dynamic Sitting Balance Ability Good Standing Balance and Reactions Static Standing Balance Ability Good Dynamic Standing Balance Ability Good M8 OT- IP Objective Assessments Start: 09/27/23 08:53 Freq: Status: Active Protocol: Document 09/27/23 08:54 [facility] (Rec: 09/27/23 09:07 [facility] [id number]) OT Gross Range of Motion Upper Extremity Range of Motion ROM Impairments WFl for needs. OT Strength Comments Strength Comments WFL for needs M9 OT- IP Assessment and Plan Start: 09/27/23 08:53 Freq: Status: Active Protocol: Document 09/27/23 08:54 [facility] (Rec: 09/27/23 09:07 [facility] [id number]) OT Summary Assessment and Plan Potential Rehabilitation Potential Excellent Analytic Complexity at Evaluation Low Summary OT Impairments Pain,Balance,Functional Mobility,Dressing,Toileting, Bathing,Toilet Transfers, Shower Transfers Progress Towards Goals Progressing Toward Goals Assessment Summary Pt low complexity and main barriers are steps and needing assist for bed mobility, putting on her shoes, and showering needs. Pt to go home with assist and out pt PT . Pt's has good understanding and safety to assist . Goals Toileting Goal Independent Bathing Goal Standby Assistance Toilet Transfer Goal Independent Shower Transfer Goal Standby Assistance Days to Meet Goals 1 Frequency of Treatment Frequency Of Treatment Once a Day Treatment Plan OT Treatment Plan ADL Training,Functional Mobility,Patient/Family Education,Discharge Planning Discharge Recommendations OT Discharge Recommendations Home with Assistance, Outpatient PT Transportation Needs at Discharge Private Vehicle
[2023-09-27] MEDS: ACETAMINOPHEN 325 MG TABLET 650 MG PO (09:00)
[2023-09-27 09:01] VITALS: BP 141/71; PULSE 74
[2023-09-27] MEDS: lisinopriL 20 MG TABLET PO (09:01)
[2023-09-27] MEDS: IBUPROFEN 400 MG TABLET PO (09:01)
[2023-09-27] MEDS: buPROPion SR 100 MG TAB PO (09:01)
[2023-09-27] MEDS: hydroCHLOROthiazide 25 MG TABLET 12.5 MG PO (09:01)
[2023-09-27] MEDS: DOCUSATE 100 MG CAPSULE PO (09:02)
[2023-09-27] MEDS: SODIUM CHLORIDE 0.9% FLUSH 10 ML IV (09:02)
[2023-09-27] MEDS: ASPIRIN EC 81 MG TABLET PO (09:05)
--- NOTE | 2023-09-27 09:22 | PT.IPTN ---
Current Diagnoses Unilateral primary osteoarthritis, right hip (09/26/23) Surgery Performed Operation Date: 09/26/23 07:45 Actual Procedures p Total Hip Arthroplasty/Anterior Approach(Right) - Nichole Almazan MD Physical Therapy Treatment Note M2 PT-IP Current Condition Start: 09/26/23 16:37 Freq: NEEDED Status: Discharge Protocol: Document 09/26/23 14:40 AB (Rec: 09/26/23 16:49 AB [id number]) Physical Therapy Current Condition Current Condition Evaluation Date 09/26/23 Treatment Diagnosis s/p R AMADOR anterior; difficulty in walking Onset Date 09/26/23 M3 PT-IP Subjective Start: 09/26/23 16:37 Freq: NEEDED Status: Discharge Protocol: Document 09/27/23 10:08 TS (Rec: 09/27/23 10:25 TS [id number]) Subjective Physical Therapy Visit Type Type Treatment Note Visit Start Time 09:22 Visit Stop Time 09:45 Number of MALT [employer]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 Therapy Pain Assessment Pain When Pain Assessed During Mobility Pain Present Pain Present Pain Reported Location right anterior hip Intensity 4 Scale Used Numeric (0 - 10) Pain Behaviors Facial Grimacing,Wincing Pain Management Techniques Apply Cold,Modification of Treatment,Re-positioning, Timing of Activity with Medications M4 PT-IP Mobility and Gait Start: 09/26/23 16:37 Freq: NEEDED Status: Discharge Protocol: Document 09/27/23 10:08 TS (Rec: 09/27/23 10:25 TS [id number]) PT-Transfer Assessment Sit to and From Stand Sit to and from Stand Standby Assistance Equipment Transfer Assistive Device Gait Belt,Front Wheeled Walker Orthotic/Prosthetic Devices or Brace: No Comments Mobility Comments Spouse donned gait belt prior to mobility. STS with FWW SBA. She ambulated ~200'SBA with FWW and an emerging step thru gait. She performed stairs x3 with B handrails and CGA from spouse step over step. She ambulated back to room, spouse and pt educated on ther-ex at home. Pt declined bed mobility. Gait Assessment Gait Gait Assistance Required: Standby Assistance Distance (Feet) 200 Able to Maintain Weight Bearing Status Yes During Gait Assistive Devices Assistive Device Gait Belt,Front Wheeled Walker Gait Deviations General Gait Pattern Decreased Feet Clearance, Narrow Based Gait,Step-to Gait Factors Limiting Gait Function Factors Limiting Gait Function Decreased Activity Tolerance, Decreased Sensation,Decreased Strength,Difficulty Following Directions,Limited Range of Motion,Pain,Poor Balance,Poor Safety Awareness Stair Climbing Assessment Evaluation Level of Assist On Stairs Contact Guard Assistance,1 Person Assistance Devices Stair Climbing Assistive Devices Left Railing,Right Railing Technique/Endurance Stair Climbing Direction Ascend and Descend Stair Climbing Technique Step to Step Number of Steps Climbed 3 PT-Balance Assessment Sitting Balance and Reactions Static Sitting Balance Ability Normal Dynamic Sitting Balance Ability Good Standing Balance and Reactions Static Standing Balance Ability Good Dynamic Standing Balance Ability Good Device Used FWW M5 PT-IP Objective Assessments Start: 09/26/23 16:37 Freq: NEEDED Status: Discharge Protocol: Document 09/26/23 14:40 AB (Rec: 09/26/23 16:49 AB [id number]) Orientation Orientation/Cognition Level of Alertness Alert Orientation Name,Place,Situation Language Function Ability No Deficits Noted Safety Awareness Decreased Safety Awareness Gross Range of Motion Lower Extremity ROM Assessment Within Functional Limits Strength Lower Extremity Strength Assessment Right Impaired Hip 3+/5 Knee 4-/5 Coordination Assessment Gross Coordination Gross Coordination WNL Sensation Assessment Sensation Gross Sensation Right LE Impaired Sensation Description Numbness Comments Sensation Comments still slightly numb on RLE per pt. Muscle Tone Muscle Tone WNL Yes M6 PT-IP Treatment Start: 09/26/23 16:37 Freq: NEEDED Status: Discharge Protocol: Document 09/27/23 10:08 TS (Rec: 09/27/23 10:25 TS [id number]) Physical Therapy Treatment Education Education Provided Precautions,Weight Bearing Status,Post-Op Packet,Safety M7 PT-IP Assessment and Plan Start: 09/26/23 16:37 Freq: NEEDED Status: Discharge Protocol: Document 09/27/23 10:08 TS (Rec: 09/27/23 10:25 TS [id number]) PT Summary Assessment and Plan Potential Rehabilitation Potential Fair Summary Impairments Pain,ROM,Strength,Balance, Coordination,Sensation,Bed Mobility,Transfers,Gait, Activity Tolerance Progress Towards Goals Progressing Toward Goals Assessment Summary Harleen is making good progress with her mobility. She progressed her gait to ~200' SBA with FWW. She performed steps x3 with CGA and B handrails, had no buckling or LOB. Spouse was instructed in and performed donning of gait belt, STS technique, gait and stairs. PT is recommending home with assist and outpatient PT. Goals Bed Mobility Goal Independent Transfer Goal Independent,Front Wheeled Walker Gait Goal Independent,Front Wheel Walker Gait Distance 150 Other Goals up/down 3 steps B rails SBA up/down 15 steps R rail SBA Days to Meet Goals 5 Frequency of Treatment Frequency Of Treatment Twice a Day Treatment Plan Physical Therapy Treatment Plan Bed Mobility Training,Transfer Training,Gait Training, Therapeutic Exercise,Balance Retraining,Post Op Education, Discharge Planning,Hot or Cold Pack,Neuromuscular Re-ed, Coordination Retraining,Manual Therapy Precautions Anterior Hip Precautions No Hip Extension,No Hip External Rotation Weight Bearing Status Weight Bearing Status Weight Bear as Tolerated Allowed Weight Bearing Amount (enter % RLE WBAT or #) (%) Recommendations To Nursing Amount of Assist Needed Standby Assistance Discharge Recommendations PT Discharge Recommendations Home with Assistance, Outpatient PT Transportation Needs at Discharge Private Vehicle
--- NOTE | 2023-09-27 10:13 | PC.NURSE ---
Discharge: Pt agreeable to discharge, PT cleared. IV discontinued. Pt dressed self. D/c education provided on stroke s/s, follow up appts, medications, constipation prevention, acetaminophen safety, and fall prevention. Pt wheeled via w/c to private vehicle at approximately 1010.
--- NOTE | 2023-09-27 11:02 | CM.DANOTE ---
Brief DCP Assessment note Pt is a 72yo F here following planned right hip surgery with Dr. Almazan on 09.26.23 PCP Joanne Cartagena Payer [facility] [employer] and Self pay AIRCRAFT SHIPPING CHECKER reviewed EMR, Per PT/OT rec home with assistance. Spouse support at home. Pt left prior to being seen by this AIRCRAFT SHIPPING CHECKER. Per RN, no obvious CM needs. P: home today with spouse support and OP f/u. Transport with spouse. No CM needs identified at this time. AVINASH Green Discharge Planning/Care Management CM Discharge Assessment Start: 09/27/23 11:01 Freq: Status: Active Protocol: Document 09/27/23 11:01 (Rec: 09/27/23 11:02 [id number]) Discharge Planning Assessment Assigned Crusher AVINASH Main DPOA/Assigned Designee Name Tom, spouse Contact Information [phone] Advance Directives? Yes Advance Directives on File Yes History Provided By Patient,Significant Other, Medical Record Prior Living Arrangements House Household Members spouse Type of transporation used prior to Drives own vehicle admit Independent with ADL's Yes Is patient alert and oriented? Yes DME Already Rented / Owned Bath Bench,FWW / Walker, Bedside Commode,Other Barriers to Discharge No Discharge Plan Home Transportation Arrangement Spouse Referrals Initiated None needed Whiteboard Updated in Patient Room with No name and ext. # of Crusher Review Status In Process Please Provide Date Initial DC 09/27/23 Assessment Was Performed Next Review Type Continued Stay Review Pre-Anesthesia Assessment Start: 09/21/23 12:35 Freq: Status: Discharge Protocol: Document 09/21/23 12:35 CAB (Rec: 09/21/23 13:13 CAB [id number]) Pre-Anesthesia Assessment Patient Information Reviewed Via Phone Assessment Assessment Completed With Patient Diagnostic Results BMP/CMP,CBC,EKG Comment Labs/EKG @ [facility] Primary Care Provider Joanne Cartagena Seen Specialist in Last 12 Months Yes Specialist Seen Orthopedist Primary Language Kinyarwanda Preferred Language Kinyarwanda Scarfing Machine Operator Required No Height 167.64 cm Weight 86.636 kg Body Mass Index (BMI) 30.8 Hearing Ability Normal Visual Assist Glasses Dentition Type Teeth, Natural Present,Teeth, Missing Barriers to Learning None Hx Anesthesia Reactions No Hx Family Anesthesia Reaction Yes: nephew has hx of malignant hyperthermia Hx Malignant Hyperthermia No Hx Blood Transfusions No Hx Blood Transfusion Reaction No Anesthesia Review Requested No Ecological Risk Assessor No alcohol intake current alcohol intake frequency a few times a month Smoking Status Never smoker Substance Use Type does not use Pain Present Pain Reported Musculoskeletal Symptoms Abnormal Gait,Back Pain, Difficulty Walking,Joint Pain, Radiating Pain into Limb History of Falling (Recent or History of No ) Patient is completely paralyzed or No completely immobile Prosthesis or Orthotic Device Front Wheel Walker Mental Status Oriented to own ability Is patient on oxygen? No Does patient have VALENTE/SOB No Hx Sleep Apnea No CPAP/BIPAP use not prescribed Currently Taking a Beta Venkata No Hx Chest Pain No Hx SOB No Hx Syncope or Dizziness No Anti-Coagulant Therapy No Has a Time Study Observer No Cardiac Testing No Hx Pacemaker/ICD No Pacemaker Rep Required? No Cardiac Clearance Received No Diet Type At Home Regular Dysphagia No Chronic UTI No Urinary Catheter Present No Hx Urinary Self Catheterization No Diabetes No HgbA1C 5.6 Date 08/28/23 Patient No Lactating No Hx Drug Resistant Organism No Presence of External or Internal Medical Yes: Lumbar fusion Devices Received a COVID vaccine? Yes Marital Status Lives With spouse Current Living Arrangements House Number of Floors (Floors) Two Floors Support System Spouse Does the Patient Have Assistance After Yes Surgery Patient Discharge Plan Description Return Home Comment Pt advised possible same day surgery Feels Safe in Current Environment Yes Do you have thoughts of harming yourself None or others? Are you currently considering suicide? No Do you have a plan to hurt yourself or No Plan others? Do You Have Any Spiritual Beliefs That No May Affect Your HC Choices? Do You Have Any Cultural Practices That No May Affect Your HC Choices? Who Can We Speak to About Patient's Care Family, friends Identifying Code for Release of Patient Declines to issue Information Health Care Proxy/Next of Kin Min () Health Care Proxy Emergency Contact Name Min () Emergency Contact Advance Directives? Yes Advance Directives on File Yes Power of Voltage Inspector Yes Power of Voltage Inspector Name Min () Power of Voltage Inspector PAC Instructions Assistance for 24 hours post- op,Do not shave/clip surgical site,Durable medical equipment ,Medications to take/avoid, Nasal antibiotic,No ETOH/ petroleum product on skin DOS, NPO,Post-op transportation,Pre -surgical wash,Sturdy shoes/ comfortable clothes,Do not bring valuables and remove jewelry
== END 2023-09-27 10:10 | disposition home or self-care (01) ==
LOC: OR 06:09 → AC 06:11
PROVIDERS: Family Provider Nurse Practitioner; PCP Nurse Practitioner; Referring Provider Orthopaedic Surgery; Visit Provider Orthopaedic Surgery
PROC: (CPT 27130; principal; 2023-09-26 07:45)
DX: M16.11 Unilateral primary osteoarthritis, right hip (principal); M25.751 Osteophyte, right hip
CPT/HCPCS: 27130; 36415; 73502; 73503; 76000; 85014; 85018; 97110; 97116; 97162; 97165; 97530; 97535; C1776; C9290; J0171; J0690; J2250; J2405; J2704; J2765; J3410

== ENCOUNTER → 2023-10-31 15:45 | Outpatient (CLI) | payer MEDICARE, SELFPAY ==
[2023-09-26 15:28] VITALS: BMI 31.8
[2023-10-31 16:14] LABS: Add Manual Diff / Slide Review NO; Basophils Absolute Auto 100 /uL (0-100); Basophils Percent Auto 0.9 % (0-2); Eosinophils Absolute Auto 300 /uL (0-450); Eosinophils Percent Auto 4.9 % (2-4); Hematocrit 36.7 % (36-46); Hemoglobin 12.6 g/dL (12.0-16.0); Lymphocytes Absolute Auto 2600 /uL (1100-4500); Lymphocytes Percent Auto 37.7 % (25-40); Mean Corpuscular HGB Conc 34.4 % (30-36); Mean Corpuscular Hemoglobin 32.1 PG (26-34); Mean Corpuscular Volume 93.2 fL (80-100); Monocytes Absolute Auto 600 /uL (0-900); Monocytes Percent Auto 8.4 % (3-14); Neutrophils Absolute Auto 3300 /uL (1500-7000); Neutrophils Percent Auto 48.1 % (50-75); Platelet Count 207 X10^3/uL (150-400); Red Blood Cell Count 3.94 X10^6/uL (4.0-5.2); Red Cell Distribution Width 14.3 % (11.6-14.8); White Blood Cell Count 6.8 X10^3/uL (4.5-11.0)
[2023-10-31 16:22] LABS: Hemoglobin A1C% w Est Avg Glu 5.1 % (4.0-6.0)
[2023-10-31 16:44] LABS: Alanine Aminotransferase 14 IU/L (<35); Albumin 4.3 g/dL (3.5-5.0); Albumin Globulin Ratio 1.2 (1.0-2.8); Alkaline Phosphatase 66 U/L (38-126); Aspartate Aminotransferase 23 IU/L (14-36); BUN Creatinine Ratio 22.4 (6-22); Bilirubin Total 0.6 mg/dL (0.2-1.3); Blood Urea Nitrogen 19 mg/dL (7-17); Calcium 9.8 mg/dL (8.4-10.2); Carbon Dioxide 31 mmol/L (22-32); Chloride 97 mmol/L (98-107); Estimated Glomerular Filt Rate > 60 mL/min (>60); Globulin 3.6 g/dL (1.7-4.1); Glucose 88 mg/dL (80-110); HEMOLYSIS 27 (0-50); Potassium 3.8 mmol/L (3.4-5.1); Sodium 134 mmol/L (137-145); Total Protein 7.9 g/dL (6.3-8.2)
[2023-10-31 16:48] LABS: HEMOLYSIS 22 (0-50); Iron 54 ug/dL (37-170)
[2023-10-31 16:58] LABS: Percent Iron Saturation 18 % (15-50); Total Iron Binding Capacity 306 ug/dL (265-497); Transferrin 246 mg/dL (206-381)
[2023-10-31 17:22] LABS: Thyroid Stimulating Hormone 2.04 uIU/mL (0.47-4.68)
[2023-10-31 17:40] LABS: Vitamin B12 376 pg/mL (239-931)
== END ==
PROVIDERS: Family Provider Nurse Practitioner; PCP Nurse Practitioner; Referring Provider Nurse Practitioner; Visit Provider Nurse Practitioner
DX: E03.9 Hypothyroidism, unspecified (principal); R79.89 Other specified abnormal findings of blood chemistry; D64.9 Anemia, unspecified; R73.03 Prediabetes; I10 Essential (primary) hypertension
CPT/HCPCS: 36415; 80053; 82607; 83036; 83540; 83550; 84443; 85025

== ENCOUNTER 2023-12-28 09:00 | Outpatient (RCR) | payer MEDICARE, SELFPAY ==
[2023-03-13 15:00] VITALS: BMI 35.3
--- NOTE | 2023-09-14 15:30 | PT.OIE ---
Current Diagnoses Unilateral primary osteoarthritis, right hip (09/14/23) Stiffness of right hip, not elsewhere classified (09/14/23) Other lack of coordination (09/14/23) Weakness (09/14/23) Past Medical History (Last Reviewed 09/14/23 @ 09:56 by DALE Jimenez) Anterolisthesis of lumbar spine Bone spur of femur Chronic lower back pain Class 2 obesity due to excess calories in adult Counseling regarding advanced care planning and goals of care Depression Elevated fasting glucose Elevated LFTs Fallen arch Family history of malignant hyperthermia Foot pain (~1987) Hip pain (~2016) Hyperlipidemia Hypertension Hypothyroidism (~2013) Pars defect Pre-diabetes Presence of orthotic device Rosacea Tinnitus (~2005) Past Surgical History (Last Reviewed 09/14/23 @ 09:56 by DALE Jimenez) Anesthesia History of back surgery Hx of colonoscopy (09/13/19) Uterine polyp (~2014) Visit Care Team Role Provider Type DALE Jimenez Family Provider Advanced Necktie Maker Primary Care Provider Specialty: Family Practice Address: [address] [place] [address], [id number] Email: [email or web address] Nichole Almazan MD Attending Provider Physician Referring Provider Specialty: Orthopedics Orthopedic Surgery Address: [address] [place] [address], [id number] Email: [email or web address] [facility] Initial Evaluation PT-OP-A Visit Information Start: 09/14/23 11:19 Freq: Status: Active Protocol: Document 09/14/23 11:19 NM (Rec: 09/14/23 12:24 NM [id number]) Out-Patient Physical Therapy Visit Information Visit Information Visit Type Initial Evaluation Visit Start Time 11:20 Visit Stop Time 12:00 Visit Number 1 Evaluation Information Evaluation Date 09/14/23 Precautions Precautions Anterior hip precautions, DOS 09/26/23 PT-OP-B Current Condition Start: 09/14/23 11:19 Freq: Status: Active Protocol: Document 09/14/23 11:19 NM (Rec: 09/14/23 12:24 NM [id number]) Current Condition History of Current Condition Current Complaints pain, poor mobility, gait, balance History of Current Condition Pt presents with R hip pain. She will surgery in September 25. Planning on an anterior approach. Pt had lumbar surgery in January, which went well. Last visit with Dr. Honeycutt for pain in July, ok to [facility]. Recently finished PT in June. 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 She had a collapsed R arch in the . She reports impairments in standing time, standing straight up, sleeping (wakes her up at night). She has been using 4ww since back surgery, only uses periodically. Plans to get FWW . Pt has 3 steps to enter home , rails on both sides; garage has 3 steps with a handle on the R side. She has 15 steps with rail on R side inside with a bedroom upstairs; she does have a room downstairs where she can sleep but still has to bathe upstairs. She has a bench in the bathtub but also has a shower chair. She lives with her who can physically help her. Treatment Goals Patient/Caregiver Goals gardening (hands and knees or sitting on ground) Prior Functional Status Baseline Function- ADL's Independent Baseline Function- Mobility Modified Independent Baseline Function- Gait ambulation 1 block w/o AD, better w/ 4WW Baseline Function- Recreation/Hobbies sewing, lifting sewing machine , swim 3x/wk Baseline Function- Other hip ER with dressing using clothing to help PT-OP-C Subjective Start: 09/14/23 11:19 Freq: Status: Active Protocol: Document 09/14/23 11:19 NM (Rec: 09/14/23 12:24 NM [id number]) OP-PT Subjective Patient Comments Patient Comments pt consents to participate in evaluation Patient Questionnaires Lower Extremity Functional Scale LEFS Score 20/80 OP-PT Pain Assessment Location right anterior hip Pain Location Details groin and posterior hip Intensity 5 Scale Used Numeric (0 - 10) Description Aching,Dull Description- Other sit 2 Frequency Frequent Radiating Location thigh, posterior hip Pain Aggravating Factors Position,ADL's,Activity, Exercise,Standing,Sitting, Walking,Stair Climbing Other Pain Aggravating Factors hip flex Pain Alleviating Factors Cold,Medication,Inactivity, Elevation,Rest PT-OP-E Functional Tests Start: 09/14/23 11:19 Freq: Status: Active Protocol: Document 09/14/23 11:19 NM (Rec: 09/14/23 12:24 NM [id number]) Functional Tests 6 Minute Walk Test Distance 740 ft Device Used 4ww Comments pain w/ ambulation but reduced w/ AD use Five Times Sit to Stand Test Score 28 sec Comments increased time; painful in hip PT-OP-F Manual Assessment Start: 09/14/23 11:19 Freq: Status: Active Protocol: Document 09/14/23 11:19 NM (Rec: 09/14/23 12:24 NM [id number]) Manual Assessments Soft Tissue Assessment Soft Tissue Mobility Assessment Tenderness to palpation and limitations in AROM of R anterior groin and posterior hip near glute/piriformis Joint Mobility Assessment Joint Mobility Assessment Limited PROM and AROM of R groin PT-OP-G Mobility & Gait Start: 09/14/23 11:19 Freq: Status: Active Protocol: Document 09/14/23 11:19 NM (Rec: 09/14/23 12:24 NM [id number]) OP Mobility Evaluation Bed Mobility Rolling 09/14/23: log roll IND Supine to and from Sit 09/14/23: via log roll IND; Capable of sitting up from supine via trunk flexion using BUE, able to slide RLE IND to EOB Transfers Sit to Stand 09/14/23: w/o AD and increased time due to pain from elevated surface; w/ 4WW and RLE forward OP Gait Assessment Gait Gait Assistance Required: Independent Distance (Feet) 740 Assistive Devices Assistive Device 4 Wheeled Walker Gait Deviations General Gait Pattern Antalgic,Flexed Trunk,Wide Based Gait Factors Limiting Gait Function Factors Limiting Gait Function Decreased Activity Tolerance, Pain Stair Climbing Evaluation Evaluation Level of Assist On Stairs Independent Devices Stair Climbing Assistive Devices Left Railing,Right Railing Technique/Endurance Stair Climbing Direction Ascend and Descend Stair Climbing Technique Step to Step Number of Steps Climbed 4 Stair Climbing Set # Repetitions (reps) 3 PT-OP-H Neuro Start: 09/14/23 11:19 Freq: Status: Active Protocol: Document 09/14/23 11:19 NM (Rec: 09/14/23 12:24 NM [id number]) Sensation Evaluation Comments Summary Comments Grossly intact to light touch sensation of RLE PT-OP-J Posture/Palpation/Skin Start: 09/14/23 11:19 Freq: Status: Active Protocol: Document 09/14/23 11:19 NM (Rec: 09/14/23 12:24 NM [id number]) Posture Evaluation Position Standing Head/C-Spine Posture Forward Head L-Spine Posture Increased Lordosis Weight Distribution Weight Shifted Left Hip Posture (L) Neutral,(R) Externally Rotated Knee Posture (L) Genu Valgus,(R) Genu Valgus Patellar Posture (L) Superior,(R) Superior Ankle/Foot Posture (L) Pronated,(R) Pronated Palpation Assessment Location R hip Palpation Findings Soft Tissue Tightness, Tenderness Palpation Details 09/14/23: tenderness to palpation along anterior, medial, and posterior hip muscles, hip joint PT-OP-K Range of Motion Start: 09/14/23 11:19 Freq: Status: Active Protocol: Document 09/14/23 11:19 NM (Rec: 09/14/23 12:24 NM [id number]) Hip Goniometric Range of Motion Hip Left Flexion w/Knee Flexed 105 Abduction 18 Internal Rotation 35 External Rotation 30 Right Flexion w/Knee Flexed 100 Abduction 10 Internal Rotation 20 External Rotation 35 PT-OP-M Strength Start: 09/14/23 11:19 Freq: Status: Active Protocol: Document 09/14/23 11:19 NM (Rec: 09/14/23 12:24 NM [id number]) Hip Strength Hip Manual Muscle Testing Left Flexion (L2) 4+ Good+ Extension (S1) 4+ Good+ Abduction 4+ Good+ Adduction 4+ Good+ External Rotation 4+ Good+ Internal Rotation 4+ Good+ Right Flexion (L2) 4- Good- Extension (S1) 4- Good- Abduction 4- Good- Adduction 4- Good- External Rotation 4- Good- Internal Rotation 4- Good- Comments 09/14/23: pain with IR, flex Knee Strength Knee Manual Muscle Testing Left Flexion (S2) 4+ Good+ Extension (L3) 4+ Good+ Right Flexion (S2) 4 Good Extension (L3) 4 Good Ankle/Foot Strength Ankle and Foot Manual Muscle Testing Left Dorsiflexion (L4) 4+ Good+ Plantarflexion (S1) 4+ Good+ Comments 09/14/23: tested in sitting Right Dorsiflexion (L4) 4+ Good+ Plantarflexion (S1) 4+ Good+ Comments 09/14/23: tested in sitting PT-OP-Q Treatments Start: 09/14/23 11:19 Freq: Status: Active Protocol: Document 09/14/23 11:19 NM (Rec: 09/14/23 12:24 NM [id number]) Therapeutic Activity Therapeutic Activity transfers Comments 1. STS with 4WW, using RLE fwd x 5 reps 2. approaching chairs from gait, cueing to maintain 4ww closer to body for safety, multiple reps throughout visit Moderate cueing initially for correct execution bed mobility Reps/Minutes 5 minutes Comments From elevated pillows/bolster to simulate sleeping in bed or in recliner as pt unable to logroll post op unless cleared by Gait Training Gait Activity stairs Device Used rails- B (outside) or R/L side (inside) Level of Assistance close SBA Distance/Duration 4 minutes Treatment Focus post-op stair training Comments Cued up with good, down with bad 4WW Level of Assistance close SBA for cueing Surface stable Distance/Duration 4 minutes Treatment Focus baseline; endurance, gait training Comments Cueing for closer AD placement during gait and transfers Self-Care/Home Management Treatment Education Patient Education Body Mechanics,Fall Risk,Pain Management Other Education Educated on anterior hip precautions: no hip ext or ER, no bridge or prone hip ext. Recommended FWW for immediately post-op to allow for increased UE support as will be WBAT. Also recommended pt live in downstairs guest room temporarily post-op to limit number of stairs per day PT-OP-T Assessment and Plan Start: 09/14/23 11:19 Freq: Status: Active Protocol: Document 09/14/23 11:19 NM (Rec: 09/14/23 12:24 NM [id number]) Physical Therapy Assessment Rehab Potential Rehabilitation Potential Good Evaluation Complexity Number of Personal Factors/Comorbidities 3 or More Number of Body Systems Impaired 4 or More Clinical Presentation at Evaluation Stable Impairments Impairments Activity Tolerance,Balance, Functional Activities, Functional Mobility,Gait,Pain, Posture,ROM,Sensation,Soft Tissue Mobility,Strength, Transfers Other Concerns Barriers to Rehabilitation Had back surgery in January 2023, only recently released from back precautions in July 2023 but continues to log roll and have prn pain in low back Goals gait Impairment 6 MWT pre-op 704 ft with 4ww Short Term Goal (STG) Pt will demonstrate safety during gait with 4ww for household and community distances prior to surgery for increased mobility STG Duration 3 weeks Purchasing Director Goal (LTG) Pt will demonstrate safety with 4ww for household and short community distances post operatively for increased mobility LTG Duration 12 weeks weakness Impairment R hip strength 4-/5 pre-op Short Term Goal (STG) Pt will be able to demonstrate at least 5 sit to stands to LRAD with UE assist in order to demonstrate BLE strength for ability to perform transfers both pre-operatively and post-operatively STG Duration 6 weeks Snf Goal (LTG) Pt will improve R hip strength globally post-operatively to at least 4/5 MMT in order to demonstrate improved strength for transfers, gait, stairs, and gardening LTG Duration 12 weeks Stairs Impairment has 15 stairs inside home, 3 steps outside home Short Term Goal (STG) Pt will be able to perform at least 15 stairs using rails or AD IND pre-operatively in order to demonstrate improved household mobility STG Duration 4 weeks Snf Goal (LTG) Pt will be able to perform at least 15 stairs using rails or AD IND post-operatively without increase in baseline pain in order to demonstrate improved household mobility LTG Duration 12 weeks Hip ROM Impairment global limitations in hip flex , abd Purchasing Director Goal (LTG) Pt will demonstrate R hip flexion AROM to at least 110 deg in order to be able to garden LTG Duration 12 weeks Assessment Summary Assessment Pt is a 72 y.o. female presenting pre-operatively for R AMADOR. She is planning to have surgery on 09/05 with anterior approach. Pt has chronic R hip pain that significantly limits her ability to perform ADLs/IADLs due to pain. She currently presents with a 4ww, which she plans to use post-operatively . Pt recently had lumbar surgery in January 2024 and was recently released from both precautions and PT. She has impairments in gait, balance, transfers, pain management, ROM, strength, endurance, activity tolerance, and ability to perform ADLs. Pt currently has tenderness to R hip along anterior groin and posterior hip. She is able to perform transfers using 4ww with increased hip pain. Pt's R hip ROM and strength are limited with empty end feel. She has several stairs both inside her home and leading up to her home with rails. PT educated pt on exam findings, plan of care, and expectations following surgery , including anterior hip precautions, gait training with 4ww, stair training, and bed mobility/transfer training . Pt would benefit from skilled PT following surgery to improve functional mobility , ROM, and strength in order to be able to perform ADLs/ IADLs/recreational activities. Physical Therapy Plan Frequency and Duration Frequency of Treatment 2x/Week Duration of treatment (weeks) 12 Plan of Care Start Date 09/14/23 Plan of Care End Date 12/08/23 Therapeutic Interventions Therapeutic Interventions Balance Training,Gait Training ,Home Exercise Program,Joint Mobilizations,Manual Therapy, Neuromuscular Re-education, Orthotic/Prosthetic Management ,Patient/Caregiver Education, Self-Care/Home Management, Sensory Integration,Soft Tissue Mobilization,Taping, Therapeutic Activities, Therapeutic Exercises Modalities Cold Pack/Ice Massage,Electric Stimulation,Hot Packs, Ultrasound Next Visit Focus/Plan Next Note Type Re-Evaluation Next Visit Plan Anterior hip precautions, WBAT
--- NOTE | 2023-10-03 15:55 | PT.OTRE ---
Current Diagnoses Unilateral primary osteoarthritis, right hip (10/03/23) Stiffness of right hip, not elsewhere classified (10/03/23) Other lack of coordination (10/03/23) Weakness (10/03/23) Past Medical History (Last Reviewed 09/26/23 @ 06:56 by Kalyani Shelton, RN) Anterolisthesis of lumbar spine Bone spur of femur Chronic lower back pain Class 2 obesity due to excess calories in adult Counseling regarding advanced care planning and goals of care Depression Elevated fasting glucose Elevated LFTs [place] Family history of malignant hyperthermia Foot pain (~1987) Hip pain (~2016) Hyperlipidemia Hypertension Hypothyroidism (~2013) Pars defect Pre-diabetes Presence of orthotic device Rosacea Tinnitus (~2005) Surgical History (Last Reviewed 09/26/23 @ 06:56 by Kalyani Shelton, LIZZY) Anesthesia History of back surgery History of gynecologic surgery (02/10/23) History of lumbar spinal fusion (02/15/23) Hx of colonoscopy (09/13/19) Uterine polyp (~2014) Visit Care Team Role Provider Type DALE Jimenez Family Provider Advanced Church Official Primary Care Provider Specialty: Family Practice Address: [address] [place] [address], [id number] Email: [email or web address] Nichole Almazan MD Attending Provider Physician Referring Provider Specialty: Orthopedics Orthopedic Surgery Address: [address] [place] [address], [id number] Email: [email or web address] Re-Evaluation PT-OP-A Visit Information Start: 09/14/23 11:19 Freq: Status: Active Protocol: Document 10/03/23 13:44 NM (Rec: 10/03/23 14:34 NM [id number]) Out-Patient Physical Therapy Visit Information Visit Information Visit Type Re-Evaluation Visit Note DOS: Visit Start Time 13:45 Visit Stop Time 14:30 Visit Number 2 Evaluation Information Evaluation Date 09/14/23 Precautions Precautions Anterior hip precautions (no hip ext, no bridge, no ER), DOS 09/26/23 PT-OP-B Current Condition Start: 09/14/23 11:19 Freq: Status: Active Protocol: Document 10/03/23 13:44 NM (Rec: 10/03/23 14:34 NM [id number]) Current Condition History of Current Condition Onset Date DOS 09/26/23 Current Complaints pain, poor mobility, gait, balance History of Current Condition 10/03/23: Pt presents following R AMADOR on 09/26/23. Pt reports that she feels really good. She had no complications with surgery. She is still taking pain medications and has a large bruise along her L hip. She presents with spc in L hand. She spent the night in the hospital. Pt able to state hip precautions (no ER, no hip ext). She recently FWW. She has been sleeping upstairs , able to use stairs very well. Has been sleeping both in guest room and in her bed due to transition into bed because has to get into bed on L side. Has been icigin 2-3x/ day, taking acetaminophen/ ibuprofen 4-5x/day. She has follow up with Dr. Almazan next week. She has numbness along the R lateral leg, states getting better. Does not report any signs or symptoms of infection. She has been doing the HEP from hospital every day. 09/14/23: Pt presents with R hip pain. She will surgery in September 25. Planning on an anterior approach. Pt had lumbar surgery in January, which went well. Last visit with Dr. Honeycutt for pain in July, ok to T. Recently finished PT in June. 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 She had a collapsed R arch in the . She reports impairments in standing time, standing straight up, sleeping (wakes her up at night). She has been using 4ww since back surgery, only uses periodically. Plans to get FWW . Pt has 3 steps to enter home , rails on both sides; garage has 3 steps with a handle on the R side. She has 15 steps with rail on R side inside with a bedroom upstairs; she does have a room downstairs where she can sleep but still has to bathe upstairs. She has a bench in the bathtub but also has a shower chair. She lives with her who can physically help her. Treatment Goals Patient/Caregiver Goals gardening (hands and knees or sitting on ground) Prior Functional Status Baseline Function- ADL's Independent Baseline Function- Mobility Modified Independent Baseline Function- Gait ambulation 1 block w/o AD, better w/ 4WW Baseline Function- Recreation/Hobbies sewing, lifting sewing machine , swim 3x/wk Baseline Function- Other hip ER with dressing using clothing to help PT-OP-C Subjective Start: 09/14/23 11:19 Freq: Status: Active Protocol: Document 10/03/23 13:44 NM (Rec: 10/03/23 14:34 NM [id number]) OP-PT Subjective Patient Comments Patient Comments I do not feel the bone on bone grinding. My leg only hurts near the bruise but it's so much better psychologically because it's not bone on bone anymore Patient Questionnaires Lower Extremity Functional Scale LEFS Score RE: IE: OP-PT Pain Assessment Location right anterior hip Pain Location Details scar (anterior), lateral hip/ buttock Intensity 3 Scale Used Numeric (0 - 10) Description Aching,Dull Frequency Frequent Pain Duration walking and when she wakes up in the am Radiating Location thigh, posterior hip Pain Aggravating Factors Position,ADL's,Activity, Exercise,Standing,Sitting, Walking,Stair Climbing Other Pain Aggravating Factors hip flex Pain Alleviating Factors Cold,Medication,Inactivity, Elevation,Rest PT-OP-D Balance Start: 09/14/23 11:19 Freq: Status: Active Protocol: Document 10/03/23 13:44 NM (Rec: 10/03/23 15:53 NM [id number]) Balance Tests Single Limb Standing Single Limb- Right <1 sec (no increased pain) to assess if ready to d/c FWW to spc Single Limb- Left 2 sec (no increased pain) PT-OP-E Functional Tests Start: 09/14/23 11:19 Freq: Status: Active Protocol: Document 10/03/23 13:44 NM (Rec: 10/03/23 14:34 NM [id number]) Functional Tests 6 Minute Walk Test Distance RE: 379 ft, IE: 740 ft Device Used RE: 4ww, IE: 4ww Comments pain w/ ambulation but reduced w/ AD use Five Times Sit to Stand Test Score RE: did not attempt, IE: 28 sec Comments increased time; painful in hip PT-OP-F Manual Assessment Start: 09/14/23 11:19 Freq: Status: Active Protocol: Document 10/03/23 13:44 NM (Rec: 10/03/23 14:34 NM [id number]) Manual Assessments Soft Tissue Assessment Soft Tissue Mobility Assessment Tenderness along lateral hip and along anterior incision, slight tenderness posteriorly Joint Mobility Assessment Joint Mobility Assessment limited AROM of R hip due to precautions PT-OP-G Mobility & Gait Start: 09/14/23 11:19 Freq: Status: Active Protocol: Document 10/03/23 13:44 NM (Rec: 10/03/23 15:52 NM [id number]) OP Mobility Evaluation Bed Mobility Rolling close SBA Supine to and from Sit close SBA Transfers Sit to Stand without AD and minimal hand support from surface, close SBA OP Gait Assessment Gait Gait Assistance Required: Standby Assistance,Contact Guard Assist Assistive Devices Assistive Device Gait Belt,Straight Cane,Front Wheeled Walker Gait Deviations General Gait Pattern Antalgic Comments Gait Comments Limited RLE extension during stance. Demos spc use far to L side, moderately dependent for balance. Transition to FWW , which pt uses step to gait with more normal mechanics and demos better trunk stability PT-OP-H Neuro Start: 09/14/23 11:19 Freq: Status: Active Protocol: Document 10/03/23 13:44 NM (Rec: 10/03/23 14:34 NM [id number]) Sensation Evaluation Comments Summary Comments Decreased along R lateral thigh to mid thigh PT-OP-J Posture/Palpation/Skin Start: 09/14/23 11:19 Freq: Status: Active Protocol: Document 10/03/23 13:44 NM (Rec: 10/03/23 14:34 NM [id number]) Posture Evaluation Position Standing Head/C-Spine Posture Forward Head L-Spine Posture Increased Lordosis Weight Distribution Weight Shifted Left Hip Posture (L) Neutral,(R) Externally Rotated Knee Posture (L) Genu Valgus,(R) Genu Valgus Patellar Posture (L) Superior,(R) Superior Ankle/Foot Posture (L) Pronated,(R) Pronated Comments Posture Comments Demos less fwd flexed trunk posture post op and near equal WB on BLE in stance Palpation Assessment Location R hip Palpation Findings Soft Tissue Tightness, Tenderness Palpation Details 10/03/23: tenderness along anterior and lateral thigh, mild posterior hip tenderness, slight numbness along mid lateral thigh; scar covered by bandage and bruising present along anterior and lateral leg 09/14/23: tenderness to palpation along anterior, medial, and posterior hip muscles, hip joint Skin Assessment Incisional Assessment Incision Appearance/Comments Incision covered by bandage but no redness, drainage or other signs/symptoms of infection or DVT. Slight swelling at R ankle but less proximally PT-OP-K Range of Motion Start: 09/14/23 11:19 Freq: Status: Active Protocol: Document 10/03/23 13:44 NM (Rec: 10/03/23 14:34 NM [id number]) Hip Goniometric Range of Motion Hip Measured in Degrees Left Flexion w/Knee Flexed 105 Abduction 18 Internal Rotation 35 External Rotation 30 Right Flexion w/Knee Flexed 75 Abduction 5 Comments 09/14/23: 100 deg flex, 10 deg abd, 20 deg IR, 35 deg ER PT-OP-M Strength Start: 09/14/23 11:19 Freq: Status: Active Protocol: Document 10/03/23 13:44 NM (Rec: 10/03/23 14:34 NM [id number]) Hip Strength Hip Manual Muscle Testing Left Flexion (L2) 4+ Good+ Extension (S1) 4+ Good+ Abduction 4+ Good+ Adduction 4+ Good+ External Rotation 4+ Good+ Internal Rotation 4+ Good+ Right Flexion (L2) 3 Fair Abduction 3 Fair Adduction 3 Fair Comments 09/14/23: 4-/5 for all pre-op; pain with IR, flex 10/03/23: Not formally tested at re-evaluation due to precautions; however pt able to perform SLR to bring leg on /off plinth during transfer and heels slides Knee Strength Knee Manual Muscle Testing Left Flexion (S2) 4+ Good+ Extension (L3) 4+ Good+ Right Flexion (S2) 3+ Fair+ Extension (L3) 3+ Fair+ Comments 09/14/23: 4/5 pre-op 10/03/23: 3+/5 post op Ankle/Foot Strength Ankle and Foot Manual Muscle Testing Left Dorsiflexion (L4) 4+ Good+ Plantarflexion (S1) 4+ Good+ Comments 10/03/23, 09/14/23: tested in sitting Right Dorsiflexion (L4) 4+ Good+ Plantarflexion (S1) 4+ Good+ Comments 10/03/23, 09/14/23: tested in sitting PT-OP-Q Treatments Start: 09/14/23 11:19 Freq: Status: Active Protocol: Document 10/03/23 13:44 NM (Rec: 10/03/23 14:34 NM [id number]) Gait Training Gait Activity spc Device Used gait belt Level of Assistance CGA Surface stable Distance/Duration 100 ft, 150 ft Treatment Focus AD placement and sequencing, stride length w/i precautions Comments Pt presents with spc, states started transition today at home. Demos spc placement at angle and far to side. Cued to maintain R hip in neutral vs extending past body and for 2pt sequencing with step- through gait. Pt able to maintain step to with small step through on LLE but challenged with balance at this time. PT recommended use of FWW to allow for healing incision at this time and due to challenges in balance while ambulating 4WW Device Used gait belt Level of Assistance IND Surface stable Distance/Duration 200 ft, 379 ft Treatment Focus stride length w/i precautions, step through pattern Comments Improved stability and stride length with FWW. More natural gait mechanics, easier ot perform step through with moderate cueing initially but improved for 6MWT. Gait speed slow during 6MWT but pt denies pain at R hip Manual Therapy Treatment Consent Patient gave verbal consent for manual Yes treatment Soft Tissue Mobilization R hip Body Location swelling management Intensity/Depth Superficial Body Position Hooklying Comments Performed distal>proximal gentle soft tissue mobilization in hooklying with leg elevated on bolster. Avoided healing incision. Performed gently from ankle to thigh. Educated pt on use of elevation at home when icing, following with ankle pumps for swelling management Self-Care/Home Management Treatment Education Patient Education Joint Protection,Pain Management Other Education Anterior hip precautions review. Educated on avoiding hip ER when turning, even when turning trunk into R rotation . Recommended use of FWW vs spc for now due to balance and since 1 week post-op to allow healing incision and strongly emphasized not to go without AD at home. For swelling management, recommended placing feet on pillows if in recliner or gentle elevation above heart if in supine at home. PT-OP-T Assessment and Plan Start: 09/14/23 11:19 Freq: Status: Active Protocol: Document 10/03/23 13:44 NM (Rec: 10/03/23 14:34 NM [id number]) Physical Therapy Assessment Rehab Potential Rehabilitation Potential Good Evaluation Complexity Number of Personal Factors/Comorbidities 3 or More Number of Body Systems Impaired 4 or More Clinical Presentation at Evaluation Stable Impairments Impairments Activity Tolerance,Balance, Functional Activities, Functional Mobility,Gait,Pain, Posture,ROM,Sensation,Soft Tissue Mobility,Strength, Transfers Other Concerns Barriers to Rehabilitation Had back surgery in January 2023, only recently released from back precautions in July 2023 but continues to log roll and have prn pain in low back Goals Transfers Impairment pt wants to return to gardening Caretaker Goal (LTG) If appropriate per precautions , pt will be able to transfer to/from floor in a controlled manner for at least 5 reps in order to be able to return to gardening LTG Duration 12 weeks gait Impairment 6 MWT pre-op 704 ft with 4ww; post op with 379 ft FWW Impairment . Short Term Goal (STG) Pt will demonstrate normal gait mechanics without LRAD for household and short community distances in order to demonstrate return to PLOF and improved balance for gait/ activity tolerance STG Duration 6 weeks Long-Term Goal (LTG) Pt will improve 6 MWT distance without LRAD to >1000 ft, if appropriate, in order to demonstrate improved gait mechanics, endurance, and pain management for community participation LTG Duration 12 weeks weakness Impairment R hip strength 4-/5 pre-op, 3/ 5 post-op Impairment . Short Term Goal (STG) Pt will be able to perform 5x STS test in fewer than 15 seconds without increase in R hip pain (pre-op 28 sec) in order to demonstrate improved BLE strength for gait, transfers, and stairs STG Duration 6 weeks Caretaker Goal (LTG) Pt will improve R hip strength globally post-operatively to at least 4+/5 MMT in order to demonstrate improved strength for transfers, gait, stairs, and gardening LTG Duration 12 weeks Stairs Impairment has 15 stairs inside home, 3 steps outside home Impairment . Short Term Goal (STG) Pt will be able to perform at least 15 stairs using rails or AD IND post-operatively in order to demonstrate improved household mobility STG Duration 4 weeks Long-Term Goal (LTG) Pt will have no limitation with stairs due to R hip pain in order to be able to perform all household stairs and stairs within community LTG Duration 12 weeks Hip ROM Impairment global limitations in hip flex , abd Impairment . Short Term Goal (STG) Pt will improve R hip flexion AROM to at least 95 deg in order to demonstrate improved ROM for swing phase of gait STG Duration 6 weeks Caretaker Goal (LTG) Pt will demonstrate R hip flexion AROM to at least 110 deg in order to be able to garden LTG Duration 12 weeks Assessment Summary Assessment Pt is a 72 y.o. female presenting 1 weeek s/p R AMADOR with anterior approach. Pt's pain is managed well at this time. She was using a 4WW for gait but recently switched to spc; however, she feels unsteady during gait with spc. Pt has impairments in R hip ROM, strength, transfers, gait , stairs, activity tolerance, ability to perform ADLs, and pain management. She has been compliant with HEP provided at discharge in hospital. Pt's incision is covered but she does not demonstrate signs/ symptoms of infection. Pt is able to verbalize anterior hip precautions and demonstrates good understanding. Pt's R hip ROM is limited due to pain following operation. Her strength was not formally assessed in L hip due to precautions but she is able to perform transfers to/from chair and for bed mobility against gravity without UE assistance. Her 6 MWT distance decreased to 379 ft with FWW. PT recommended pt continue with 4WW for balance temporarily until able to tolerate SLS to progress to spc. Pt verbalizes agreement. PT also educated pt on re- evaluation findings and plan of care. Pt would benefit from skilled PT for R hip mobility and strengthening within precautions in order to normalize gait, improve balance, and increase strength for transfer and ability to participate without limitation in ADLs. Physical Therapy Plan Frequency and Duration Frequency of Treatment 2x/Week Duration of treatment (weeks) 12 Plan of Care Start Date 10/03/23 Plan of Care End Date 12/29/23 Therapeutic Interventions Therapeutic Interventions Balance Training,Gait Training ,Home Exercise Program,Joint Mobilizations,Manual Therapy, Neuromuscular Re-education, Orthotic/Prosthetic Management ,Patient/Caregiver Education, Self-Care/Home Management, Sensory Integration,Soft Tissue Mobilization,Taping, Therapeutic Activities, Therapeutic Exercises Modalities Cold Pack/Ice Massage,Electric Stimulation,Hot Packs, Ultrasound Next Visit Focus/Plan Next Note Type Treatment Note Next Visit Plan Anterior hip precautions, WBAT heel slides, ankle pumps, hip abd, STS, gait training with spc, balance
--- NOTE | 2023-10-06 15:57 | PT.OTN ---
Current Diagnoses Unilateral primary osteoarthritis, right hip (10/06/23) Stiffness of right hip, not elsewhere classified (10/06/23) Other lack of coordination (10/06/23) Weakness (10/06/23) Physical Therapy Treatment Note PT-OP-A Visit Information Start: 09/14/23 11:19 Freq: Status: Active Protocol: Document 10/06/23 13:48 NM (Rec: 10/06/23 14:35 NM [id number]) Out-Patient Physical Therapy Visit Information Visit Information Visit Type Treatment Note Visit Note DOS 09/26/23 Visit Start Time 13:49 Visit Stop Time 14:30 Visit Number 3 Evaluation Information Evaluation Date 09/14/23 Precautions Precautions Anterior hip precautions (no hip ext, no bridge, no ER), DOS 09/26/23 PT-OP-B Current Condition Start: 09/14/23 11:19 Freq: Status: Active Protocol: Document 10/03/23 13:44 NM (Rec: 10/03/23 14:34 NM [id number]) Current Condition History of Current Condition Onset Date DOS 09/26/23 Current Complaints pain, poor mobility, gait, balance History of Current Condition 10/03/23: Pt presents following R AMADOR on 09/26/23. Pt reports that she feels really good. She had no complications with surgery. She is still taking pain medications and has a large bruise along her L hip. She presents with spc in L hand. She spent the night in the hospital. Pt able to state hip precautions (no ER, no hip ext). She recently FWW. She has been sleeping upstairs , able to use stairs very well. Has been sleeping both in guest room and in her bed due to transition into bed because has to get into bed on L side. Has been icigin 2-3x/ day, taking acetaminophen/ ibuprofen 4-5x/day. She has follow up with Dr. Almazan next week. She has numbness along the R lateral leg, states getting better. Does not report any signs or symptoms of infection. She has been doing the HEP from hospital every day. 09/14/23: Pt presents with R hip pain. She will surgery in September 25. Planning on an anterior approach. Pt had lumbar surgery in January, which went well. Last visit with Dr. Honeycutt for pain in July, ok to T. Recently finished PT in June. 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 She had a collapsed R arch in the . She reports impairments in standing time, standing straight up, sleeping (wakes her up at night). She has been using 4ww since back surgery, only uses periodically. Plans to get FWW . Pt has 3 steps to enter home , rails on both sides; garage has 3 steps with a handle on the R side. She has 15 steps with rail on R side inside with a bedroom upstairs; she does have a room downstairs where she can sleep but still has to bathe upstairs. She has a bench in the bathtub but also has a shower chair. She lives with her who can physically help her. Treatment Goals Patient/Caregiver Goals gardening (hands and knees or sitting on ground) Prior Functional Status Baseline Function- ADL's Independent Baseline Function- Mobility Modified Independent Baseline Function- Gait ambulation 1 block w/o AD, better w/ 4WW Baseline Function- Recreation/Hobbies sewing, lifting sewing machine , swim 3x/wk Baseline Function- Other hip ER with dressing using clothing to help PT-OP-C Subjective Start: 09/14/23 11:19 Freq: Status: Active Protocol: Document 10/06/23 13:48 NM (Rec: 10/06/23 14:35 NM [id number]) OP-PT Subjective Patient Comments Patient Comments Pt presents without AD. She states still sore. Numbness is lessening. She has follow up with Monday. Still icing, taking acetominophen. She reports that she does have some pain (states soft tissue when walking), states moves around a little bit; worse in am when first gets up. PT-OP-D Balance Start: 09/14/23 11:19 Freq: Status: Active Protocol: Document 10/03/23 13:44 NM (Rec: 10/03/23 15:53 NM [id number]) Balance Tests Single Limb Standing Single Limb- Right <1 sec (no increased pain) to assess if ready to d/c FWW to spc Single Limb- Left 2 sec (no increased pain) PT-OP-E Functional Tests Start: 09/14/23 11:19 Freq: Status: Active Protocol: Document 10/03/23 13:44 NM (Rec: 10/03/23 14:34 NM [id number]) Functional Tests 6 Minute Walk Test Distance RE: 379 ft, IE: 740 ft Device Used RE: 4ww, IE: 4ww Comments pain w/ ambulation but reduced w/ AD use Five Times Sit to Stand Test Score RE: did not attempt, IE: 28 sec Comments increased time; painful in hip PT-OP-F Manual Assessment Start: 09/14/23 11:19 Freq: Status: Active Protocol: Document 10/03/23 13:44 NM (Rec: 10/03/23 14:34 NM [id number]) Manual Assessments Soft Tissue Assessment Soft Tissue Mobility Assessment Tenderness along lateral hip and along anterior incision, slight tenderness posteriorly Joint Mobility Assessment Joint Mobility Assessment limited AROM of R hip due to precautions PT-OP-G Mobility & Gait Start: 09/14/23 11:19 Freq: Status: Active Protocol: Document 10/03/23 13:44 NM (Rec: 10/03/23 15:52 NM [id number]) OP Mobility Evaluation Bed Mobility Rolling close SBA Supine to and from Sit close SBA Transfers Sit to Stand without AD and minimal hand support from surface, close SBA OP Gait Assessment Gait Gait Assistance Required: Standby Assistance,Contact Guard Assist Assistive Devices Assistive Device Gait Belt,Straight Cane,Front Wheeled Walker Gait Deviations General Gait Pattern Antalgic Comments Gait Comments Limited RLE extension during stance. Demos spc use far to L side, moderately dependent for balance. Transition to FWW , which pt uses step to gait with more normal mechanics and demos better trunk stability PT-OP-H Neuro Start: 09/14/23 11:19 Freq: Status: Active Protocol: Document 10/03/23 13:44 NM (Rec: 10/03/23 14:34 NM [id number]) Sensation Evaluation Comments Summary Comments Decreased along R lateral thigh to mid thigh PT-OP-J Posture/Palpation/Skin Start: 09/14/23 11:19 Freq: Status: Active Protocol: Document 10/03/23 13:44 NM (Rec: 10/03/23 14:34 NM [id number]) Posture Evaluation Position Standing Head/C-Spine Posture Forward Head L-Spine Posture Increased Lordosis Weight Distribution Weight Shifted Left Hip Posture (L) Neutral,(R) Externally Rotated Knee Posture (L) Genu Valgus,(R) Genu Valgus Patellar Posture (L) Superior,(R) Superior Ankle/Foot Posture (L) Pronated,(R) Pronated Comments Posture Comments Demos less fwd flexed trunk posture post op and near equal WB on BLE in stance Palpation Assessment Location R hip Palpation Findings Soft Tissue Tightness, Tenderness Palpation Details 10/03/23: tenderness along anterior and lateral thigh, mild posterior hip tenderness, slight numbness along mid lateral thigh; scar covered by bandage and bruising present along anterior and lateral leg 09/14/23: tenderness to palpation along anterior, medial, and posterior hip muscles, hip joint Skin Assessment Incisional Assessment Incision Appearance/Comments Incision covered by bandage but no redness, drainage or other signs/symptoms of infection or DVT. Slight swelling at R ankle but less proximally PT-OP-K Range of Motion Start: 09/14/23 11:19 Freq: Status: Active Protocol: Document 10/03/23 13:44 NM (Rec: 10/03/23 14:34 NM [id number]) Hip Goniometric Range of Motion Hip Left Flexion w/Knee Flexed 105 Abduction 18 Internal Rotation 35 External Rotation 30 Right Flexion w/Knee Flexed 75 Abduction 5 Comments 09/14/23: 100 deg flex, 10 deg abd, 20 deg IR, 35 deg ER PT-OP-M Strength Start: 09/14/23 11:19 Freq: Status: Active Protocol: Document 10/03/23 13:44 NM (Rec: 10/03/23 14:34 NM [id number]) Hip Strength Hip Manual Muscle Testing Left Flexion (L2) 4+ Good+ Extension (S1) 4+ Good+ Abduction 4+ Good+ Adduction 4+ Good+ External Rotation 4+ Good+ Internal Rotation 4+ Good+ Right Flexion (L2) 3 Fair Abduction 3 Fair Adduction 3 Fair Comments 09/14/23: 4-/5 for all pre-op; pain with IR, flex 10/03/23: Not formally tested at re-evaluation due to precautions; however pt able to perform SLR to bring leg on /off plinth during transfer and heels slides Knee Strength Knee Manual Muscle Testing Left Flexion (S2) 4+ Good+ Extension (L3) 4+ Good+ Right Flexion (S2) 3+ Fair+ Extension (L3) 3+ Fair+ Comments 09/14/23: 4/5 pre-op 10/03/23: 3+/5 post op Ankle/Foot Strength Ankle and Foot Manual Muscle Testing Left Dorsiflexion (L4) 4+ Good+ Plantarflexion (S1) 4+ Good+ Comments 10/03/23, 09/14/23: tested in sitting Right Dorsiflexion (L4) 4+ Good+ Plantarflexion (S1) 4+ Good+ Comments 10/03/23, 09/14/23: tested in sitting PT-OP-Q Treatments Start: 09/14/23 11:19 Freq: Status: Active Protocol: Document 10/06/23 13:48 NM (Rec: 10/06/23 14:35 NM [id number]) Therapeutic Exercises Supine Exercises quad set Supine Exercise Name HEP; hooklying Side right Reps/Minutes 10x5 Comments good activation; edu to continue at home glute squeeze Supine Exercise Name hooklying (HEP) Side bilateral Reps/Minutes 5 with 5 hold Comments good activation marching Supine Exercise Name trunk elevated, hooklying Side right Reps/Minutes 20 Comments below 90 deg hip flex heel slides Supine Exercise Name trunk elevated, hooklying (HEP ) Side right Equipment Used pillow case Reps/Minutes 2x10 Comments cued to maintain <90 deg flex for now ankle pumps Supine Exercise Name hooklying Side right Reps/Minutes 20 Comments following manual tx Sitting Exercises calf stretch Sitting Exercise Name 1. Gastroc, 2. soleus Side right Equipment Used gait belt Reps/Minutes 30 ea LAQ Sitting Exercise Name HEP Side bilateral Resistance AROM Reps/Minutes 15x2 Comments cued for good quad set with activity Standing Exercises calf stretch Side bilateral Equipment Used VANCE Reps/Minutes 2x30 Comments before LAQ due to calf tightness Manual Therapy Treatment Consent Patient gave verbal consent for manual Yes treatment Soft Tissue Mobilization R hip Body Location swelling management, quad, hip flexors, HS Mobilization Type Rolling,Other Intensity/Depth Superficial Body Position Hooklying Comments Performed distal > proximal gentle soft tissue mobilization in hooklying with legs elevated, from ankle > hip. Additional superficial soft tissue mobilization of quad, hip flexors, adductors, and hamstrings. Avoiding healing incision Self-Care/Home Management Treatment Education Patient Education Fall Risk,Joint Protection, Pain Management Other Education Educated on continuing to use AD for both household and community ambulation due to pain with ambulation, for stability/balance, to decrease fall risk, and safety. Recommended at minimum use of spc. Pt verbalizes agreement PT-OP-T Assessment and Plan Start: 09/14/23 11:19 Freq: Status: Active Protocol: Document 10/06/23 13:48 NM (Rec: 10/06/23 14:35 NM [id number]) Physical Therapy Assessment Goals Transfers Impairment pt wants to return to gardening Mcfp Goal (LTG) If appropriate per precautions , pt will be able to transfer to/from floor in a controlled manner for at least 5 reps in order to be able to return to gardening LTG Duration 12 weeks gait Impairment 6 MWT pre-op 704 ft with 4ww; post op with 379 ft FWW Impairment . Short Term Goal (STG) Pt will demonstrate normal gait mechanics without LRAD for household and short community distances in order to demonstrate return to PLOF and improved balance for gait/ activity tolerance STG Duration 6 weeks Mcfp Goal (LTG) Pt will improve 6 MWT distance without LRAD to >1000 ft, if appropriate, in order to demonstrate improved gait mechanics, endurance, and pain management for community participation LTG Duration 12 weeks weakness Impairment R hip strength 4-/5 pre-op, 3/ 5 post-op Impairment . Short Term Goal (STG) Pt will be able to perform 5x STS test in fewer than 15 seconds without increase in R hip pain (pre-op 28 sec) in order to demonstrate improved BLE strength for gait, transfers, and stairs STG Duration 6 weeks Mcfp Goal (LTG) Pt will improve R hip strength globally post-operatively to at least 4+/5 MMT in order to demonstrate improved strength for transfers, gait, stairs, and gardening LTG Duration 12 weeks Stairs Impairment has 15 stairs inside home, 3 steps outside home Impairment . Short Term Goal (STG) Pt will be able to perform at least 15 stairs using rails or AD IND post-operatively in order to demonstrate improved household mobility STG Duration 4 weeks Mcfp Goal (LTG) Pt will have no limitation with stairs due to R hip pain in order to be able to perform all household stairs and stairs within community LTG Duration 12 weeks Hip ROM Impairment global limitations in hip flex , abd Impairment . Short Term Goal (STG) Pt will improve R hip flexion AROM to at least 95 deg in order to demonstrate improved ROM for swing phase of gait STG Duration 6 weeks Account Services Coordinator Goal (LTG) Pt will demonstrate R hip flexion AROM to at least 110 deg in order to be able to garden LTG Duration 12 weeks Assessment Summary Assessment Pt tolerated session well. Currently 1.5 weeks post op R AMADOR. Educated again on hip precautions; pt able to verbalize and demonstrate good understanding. PT also educated pt on use of AD for safety and to lower pain levels, recommending at least spc but preferably 4WW for safety due to fall risk. Initiated activities to improve R hip mobility within pain free range and precautions, in addition to initiating strengthening. Pt has fair quad and glute activation. However, she requires cues to sustain contraction. Initiated calf stretch to reduce muscle tension after LAQ. Pt would benefit from skilled PT for R hip mobility and strengthening in order to improve symptom management and activity tolerance for ADLs and mobility Physical Therapy Plan Frequency and Duration Frequency of Treatment 2x/Week Duration of treatment (weeks) 12 Plan of Care Start Date 10/03/23 Plan of Care End Date 12/29/23 Therapeutic Interventions Therapeutic Interventions Balance Training,Gait Training ,Home Exercise Program,Joint Mobilizations,Manual Therapy, Neuromuscular Re-education, Orthotic/Prosthetic Management ,Patient/Caregiver Education, Self-Care/Home Management, Sensory Integration,Soft Tissue Mobilization,Taping, Therapeutic Activities, Therapeutic Exercises Modalities Cold Pack/Ice Massage,Electric Stimulation,Hot Packs, Ultrasound Next Visit Focus/Plan Next Note Type Treatment Note Next Visit Plan Anterior hip precautions, WBAT quad set, LAQ, HSC, hip abd in sitting, marching, heel slides, ankle pumps, hip abd, STS, gait training with spc, balance
--- NOTE | 2023-10-09 12:11 | PT.OTN ---
Current Diagnoses Unilateral primary osteoarthritis, right hip (10/09/23) Stiffness of right hip, not elsewhere classified (10/09/23) Other lack of coordination (10/09/23) Weakness (10/09/23) Physical Therapy Treatment Note PT-OP-A Visit Information Start: 09/14/23 11:19 Freq: Status: Active Protocol: Document 10/09/23 09:02 NM (Rec: 10/09/23 09:44 NM [id number]) Out-Patient Physical Therapy Visit Information Visit Information Visit Type Treatment Note Visit Note DOS 09/26/23 Visit Start Time 09:03 Visit Stop Time 09:43 Visit Number 4 Evaluation Information Evaluation Date 09/14/23 Precautions Precautions Anterior hip precautions (no hip ext, no bridge, no ER), DOS 09/26/23 PT-OP-B Current Condition Start: 09/14/23 11:19 Freq: Status: Active Protocol: Document 10/03/23 13:44 NM (Rec: 10/03/23 14:34 NM [id number]) Current Condition History of Current Condition Onset Date DOS 09/26/23 Current Complaints pain, poor mobility, gait, balance History of Current Condition 10/03/23: Pt presents following R [facility]ADOR on 09/26/23. Pt reports that she feels really good. She had no complications with surgery. She is still taking pain medications and has a large bruise along her L hip. She presents with spc in L hand. She spent the night in the hospital. Pt able to state hip precautions (no ER, no hip ext). She recently FWW. She has been sleeping upstairs , able to use stairs very well. Has been sleeping both in guest room and in her bed due to transition into bed because has to get into bed on L side. Has been icigin 2-3x/ day, taking acetaminophen/ ibuprofen 4-5x/day. She has follow up with Dr. Almazan next week. She has numbness along the R lateral leg, states getting better. Does not report any signs or symptoms of infection. She has been doing the HEP from hospital every day. 09/14/23: Pt presents with R hip pain. She will surgery in September 25. Planning on an anterior approach. Pt had lumbar surgery in January, which went well. Last visit with Dr. Honeycutt for pain in July, ok to T. Recently finished PT in June. 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 She had a collapsed R arch in the . She reports impairments in standing time, standing straight up, sleeping (wakes her up at night). She has been using 4ww since back surgery, only uses periodically. Plans to get FWW . Pt has 3 steps to enter home , rails on both sides; garage has 3 steps with a handle on the R side. She has 15 steps with rail on R side inside with a bedroom upstairs; she does have a room downstairs where she can sleep but still has to bathe upstairs. She has a bench in the bathtub but also has a shower chair. She lives with her who can physically help her. Treatment Goals Patient/Caregiver Goals gardening (hands and knees or sitting on ground) Prior Functional Status Baseline Function- ADL's Independent Baseline Function- Mobility Modified Independent Baseline Function- Gait ambulation 1 block w/o AD, better w/ 4WW Baseline Function- Recreation/Hobbies sewing, lifting sewing machine , swim 3x/wk Baseline Function- Other hip ER with dressing using clothing to help PT-OP-C Subjective Start: 09/14/23 11:19 Freq: Status: Active Protocol: Document 10/09/23 09:02 NM (Rec: 10/09/23 09:44 NM [id number]) OP-PT Subjective Patient Comments Patient Comments Pt presents with spc today, reports has been using at home . States that she woke up tired and lingered in bed. She reports that she is having a new burning pain along her anterior thigh, tightness in her adductors of her R hip, still R knee gets achy, still a little numb and tingly. She has a collapsed arch on her R foot, has a heavy duty arch support; will be getting an adjustment PT-OP-D Balance Start: 09/14/23 11:19 Freq: Status: Active Protocol: Document 10/03/23 13:44 NM (Rec: 10/03/23 15:53 NM [id number]) Balance Tests Single Limb Standing Single Limb- Right <1 sec (no increased pain) to assess if ready to d/c FWW to spc Single Limb- Left 2 sec (no increased pain) PT-OP-E Functional Tests Start: 09/14/23 11:19 Freq: Status: Active Protocol: Document 10/03/23 13:44 NM (Rec: 10/03/23 14:34 NM [id number]) Functional Tests 6 Minute Walk Test Distance RE: 379 ft, IE: 740 ft Device Used RE: 4ww, IE: 4ww Comments pain w/ ambulation but reduced w/ AD use Five Times Sit to Stand Test Score RE: did not attempt, IE: 28 sec Comments increased time; painful in hip PT-OP-F Manual Assessment Start: 09/14/23 11:19 Freq: Status: Active Protocol: Document 10/03/23 13:44 NM (Rec: 10/03/23 14:34 NM [id number]) Manual Assessments Soft Tissue Assessment Soft Tissue Mobility Assessment Tenderness along lateral hip and along anterior incision, slight tenderness posteriorly Joint Mobility Assessment Joint Mobility Assessment limited AROM of R hip due to precautions PT-OP-G Mobility & Gait Start: 09/14/23 11:19 Freq: Status: Active Protocol: Document 10/03/23 13:44 NM (Rec: 10/03/23 15:52 NM [id number]) OP Mobility Evaluation Bed Mobility Rolling close SBA Supine to and from Sit close SBA Transfers Sit to Stand without AD and minimal hand support from surface, close SBA OP Gait Assessment Gait Gait Assistance Required: Standby Assistance,Contact Guard Assist Assistive Devices Assistive Device Gait Belt,Straight Cane,Front Wheeled Walker Gait Deviations General Gait Pattern Antalgic Comments Gait Comments Limited RLE extension during stance. Demos spc use far to L side, moderately dependent for balance. Transition to FWW , which pt uses step to gait with more normal mechanics and demos better trunk stability PT-OP-H Neuro Start: 09/14/23 11:19 Freq: Status: Active Protocol: Document 10/03/23 13:44 NM (Rec: 10/03/23 14:34 NM [id number]) Sensation Evaluation Comments Summary Comments Decreased along R lateral thigh to mid thigh PT-OP-J Posture/Palpation/Skin Start: 09/14/23 11:19 Freq: Status: Active Protocol: Document 10/03/23 13:44 NM (Rec: 10/03/23 14:34 NM [id number]) Posture Evaluation Position Standing Head/C-Spine Posture Forward Head L-Spine Posture Increased Lordosis Weight Distribution Weight Shifted Left Hip Posture (L) Neutral,(R) Externally Rotated Knee Posture (L) Genu Valgus,(R) Genu Valgus Patellar Posture (L) Superior,(R) Superior Ankle/Foot Posture (L) Pronated,(R) Pronated Comments Posture Comments Demos less fwd flexed trunk posture post op and near equal WB on BLE in stance Palpation Assessment Location R hip Palpation Findings Soft Tissue Tightness, Tenderness Palpation Details 10/03/23: tenderness along anterior and lateral thigh, mild posterior hip tenderness, slight numbness along mid lateral thigh; scar covered by bandage and bruising present along anterior and lateral leg 09/14/23: tenderness to palpation along anterior, medial, and posterior hip muscles, hip joint Skin Assessment Incisional Assessment Incision Appearance/Comments Incision covered by bandage but no redness, drainage or other signs/symptoms of infection or DVT. Slight swelling at R ankle but less proximally PT-OP-K Range of Motion Start: 09/14/23 11:19 Freq: Status: Active Protocol: Document 10/03/23 13:44 NM (Rec: 10/03/23 14:34 NM [id number]) Hip Goniometric Range of Motion Hip Left Flexion w/Knee Flexed 105 Abduction 18 Internal Rotation 35 External Rotation 30 Right Flexion w/Knee Flexed 75 Abduction 5 Comments 09/14/23: 100 deg flex, 10 deg abd, 20 deg IR, 35 deg ER PT-OP-M Strength Start: 09/14/23 11:19 Freq: Status: Active Protocol: Document 10/03/23 13:44 NM (Rec: 10/03/23 14:34 NM [id number]) Hip Strength Hip Manual Muscle Testing Left Flexion (L2) 4+ Good+ Extension (S1) 4+ Good+ Abduction 4+ Good+ Adduction 4+ Good+ External Rotation 4+ Good+ Internal Rotation 4+ Good+ Right Flexion (L2) 3 Fair Abduction 3 Fair Adduction 3 Fair Comments 09/14/23: 4-/5 for all pre-op; pain with IR, flex 10/03/23: Not formally tested at re-evaluation due to precautions; however pt able to perform SLR to bring leg on /off plinth during transfer and heels slides Knee Strength Knee Manual Muscle Testing Left Flexion (S2) 4+ Good+ Extension (L3) 4+ Good+ Right Flexion (S2) 3+ Fair+ Extension (L3) 3+ Fair+ Comments 09/14/23: 4/5 pre-op 10/03/23: 3+/5 post op Ankle/Foot Strength Ankle and Foot Manual Muscle Testing Left Dorsiflexion (L4) 4+ Good+ Plantarflexion (S1) 4+ Good+ Comments 10/03/23, 09/14/23: tested in sitting Right Dorsiflexion (L4) 4+ Good+ Plantarflexion (S1) 4+ Good+ Comments 10/03/23, 09/14/23: tested in sitting PT-OP-Q Treatments Start: 09/14/23 11:19 Freq: Status: Active Protocol: Document 10/09/23 09:02 NM (Rec: 10/09/23 09:44 NM [id number]) Therapeutic Exercises Supine Exercises hip adduction Supine Exercise Name isometric Side bilateral Reps/Minutes 10x5 Comments cued submaximal samir and pain free quad set Supine Exercise Name hooklying (HEP review)- w/ SAQ Side right Equipment Used blue ball under thigh Reps/Minutes 20x5 Comments good activation w/ full TKE, pain free marching Supine Exercise Name trunk elevated, hooklying Side right Reps/Minutes 20 Comments below 90 deg hip flex Sitting Exercises hip abduction Sitting Exercise Name isometric Side bilateral Equipment Used against pt hands Reps/Minutes 10x3 hold calf stretch Sitting Exercise Name 1. Gastroc, 2. soleus Side right Equipment Used gait belt Reps/Minutes 2x30 ea Comments before LAQ, due to quad tightness LAQ Sitting Exercise Name HEP Review Side bilateral Resistance AROM Reps/Minutes 2x10 with 2>5 hold Comments good quad set, cued slower for control Manual Therapy Treatment Consent Patient gave verbal consent for manual Yes treatment Soft Tissue Mobilization R hip Body Location swelling management, quad, hip flexors, HS, adductors Mobilization Type Rolling,Other Intensity/Depth Superficial Body Position Hooklying Comments Performed distal > proximal gentle soft tissue mobilization in hooklying with legs elevated, from ankle > hip. Additional superficial soft tissue mobilization of quad, hip flexors, adductors, and hamstrings. Avoiding healing incision. Pt has ADD and quad tightness, reduced w/ rolling PT-OP-T Assessment and Plan Start: 09/14/23 11:19 Freq: Status: Active Protocol: Document 10/09/23 09:02 NM (Rec: 10/09/23 09:44 NM [id number]) Physical Therapy Assessment Goals Transfers Impairment pt wants to return to gardening Technical Agronomist Goal (LTG) If appropriate per precautions , pt will be able to transfer to/from floor in a controlled manner for at least 5 reps in order to be able to return to gardening LTG Duration 12 weeks gait Impairment 6 MWT pre-op 704 ft with 4ww; post op with 379 ft FWW Impairment . Short Term Goal (STG) Pt will demonstrate normal gait mechanics without LRAD for household and short community distances in order to demonstrate return to PLOF and improved balance for gait/ activity tolerance STG Duration 6 weeks Shelter Goal (LTG) Pt will improve 6 MWT distance without LRAD to >1000 ft, if appropriate, in order to demonstrate improved gait mechanics, endurance, and pain management for community participation LTG Duration 12 weeks weakness Impairment R hip strength 4-/5 pre-op, 3/ 5 post-op Impairment . Short Term Goal (STG) Pt will be able to perform 5x STS test in fewer than 15 seconds without increase in R hip pain (pre-op 28 sec) in order to demonstrate improved BLE strength for gait, transfers, and stairs STG Duration 6 weeks Technical Agronomist Goal (LTG) Pt will improve R hip strength globally post-operatively to at least 4+/5 MMT in order to demonstrate improved strength for transfers, gait, stairs, and gardening LTG Duration 12 weeks Stairs Impairment has 15 stairs inside home, 3 steps outside home Impairment . Short Term Goal (STG) Pt will be able to perform at least 15 stairs using rails or AD IND post-operatively in order to demonstrate improved household mobility STG Duration 4 weeks Shelter Goal (LTG) Pt will have no limitation with stairs due to R hip pain in order to be able to perform all household stairs and stairs within community LTG Duration 12 weeks Hip ROM Impairment global limitations in hip flex , abd Impairment . Short Term Goal (STG) Pt will improve R hip flexion AROM to at least 95 deg in order to demonstrate improved ROM for swing phase of gait STG Duration 6 weeks Shelter Goal (LTG) Pt will demonstrate R hip flexion AROM to at least 110 deg in order to be able to garden LTG Duration 12 weeks Assessment Summary Assessment Pt tolerated session well. Session emphasis on reducing pain/soreness present upon start of session in R thigh with soft tissue mobilization and swelling management. Pt has tightness in R adductors and quad that is reduced with gentle soft tissue mobilization. Pt's R ankle continues to be slightly swollen but is reduced compared to previous sessions. Trialed hip ADD isometric, which also decreased R adductor tightness. Pt has improved quad activation today , able to achieve good TKE with quad set and LAQ. Pt would benefit from skilled PT for R hip mobility and strengthening in order to improve mobility and ability to participate in ADLs. Physical Therapy Plan Frequency and Duration Frequency of Treatment 2x/Week Duration of treatment (weeks) 12 Plan of Care Start Date 10/03/23 Plan of Care End Date 12/29/23 Therapeutic Interventions Therapeutic Interventions Balance Training,Gait Training ,Home Exercise Program,Joint Mobilizations,Manual Therapy, Neuromuscular Re-education, Orthotic/Prosthetic Management ,Patient/Caregiver Education, Self-Care/Home Management, Sensory Integration,Soft Tissue Mobilization,Taping, Therapeutic Activities, Therapeutic Exercises Modalities Cold Pack/Ice Massage,Electric Stimulation,Hot Packs, Ultrasound Next Visit Focus/Plan Next Note Type Treatment Note Next Visit Plan Anterior hip precautions, WBAT TKE standing, LAQ c/ 1#, HSC, hip abd samir in sitting c/ band, hip add, marching, heel slides, ankle pumps, hip abd, STS, gait training with spc, balance
--- NOTE | 2023-10-12 11:16 | PT.OTN ---
Current Diagnoses Unilateral primary osteoarthritis, right hip (10/12/23) Stiffness of right hip, not elsewhere classified (10/12/23) Other lack of coordination (10/12/23) Weakness (10/12/23) Physical Therapy Treatment Note PT-OP-A Visit Information Start: 09/14/23 11:19 Freq: Status: Active Protocol: Document 10/12/23 10:30 NM (Rec: 10/12/23 11:15 NM [id number]) Out-Patient Physical Therapy Visit Information Visit Information Visit Type Treatment Note Visit Note DOS 09/26/23 Visit Start Time 10:32 Visit Stop Time 11:12 Visit Number 5 Evaluation Information Evaluation Date 09/14/23 Precautions Precautions Anterior hip precautions (no hip ext, no bridge, no ER), and no hip flex >90 deg DOS 09/26/23 PT-OP-B Current Condition Start: 09/14/23 11:19 Freq: Status: Active Protocol: Document 10/03/23 13:44 NM (Rec: 10/03/23 14:34 NM [id number]) Current Condition History of Current Condition Onset Date DOS 09/26/23 Current Complaints pain, poor mobility, gait, balance History of Current Condition 10/03/23: Pt presents following R AMADOR on 09/26/23. Pt reports that she feels really good. She had no complications with surgery. She is still taking pain medications and has a large bruise along her L hip. She presents with spc in L hand. She spent the night in the hospital. Pt able to state hip precautions (no ER, no hip ext). She recently FWW. She has been sleeping upstairs , able to use stairs very well. Has been sleeping both in guest room and in her bed due to transition into bed because has to get into bed on L side. Has been icigin 2-3x/ day, taking acetaminophen/ ibuprofen 4-5x/day. She has follow up with Dr. Almazan next week. She has numbness along the R lateral leg, states getting better. Does not report any signs or symptoms of infection. She has been doing the HEP from hospital every day. 09/14/23: Pt presents with R hip pain. She will surgery in September 25. Planning on an anterior approach. Pt had lumbar surgery in January, which went well. Last visit with Dr. Honeycutt for pain in [place], ok to BLT. Recently finished PT in June. 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 She had a collapsed R arch in the . She reports impairments in standing time, standing straight up, sleeping (wakes her up at night). She has been using 4ww since back surgery, only uses periodically. Plans to get FWW . Pt has 3 steps to enter home , rails on both sides; garage has 3 steps with a handle on the R side. She has 15 steps with rail on R side inside with a bedroom upstairs; she does have a room downstairs where she can sleep but still has to bathe upstairs. She has a bench in the bathtub but also has a shower chair. She lives with her who can physically help her. Treatment Goals Patient/Caregiver Goals gardening (hands and knees or sitting on ground) Prior Functional Status Baseline Function- ADL's Independent Baseline Function- Mobility Modified Independent Baseline Function- Gait ambulation 1 block w/o AD, better w/ 4WW Baseline Function- Recreation/Hobbies sewing, lifting sewing machine , swim 3x/wk Baseline Function- Other hip ER with dressing using clothing to help PT-OP-C Subjective Start: 09/14/23 11:19 Freq: Status: Active Protocol: Document 10/12/23 10:30 NM (Rec: 10/12/23 11:15 NM [id number]) OP-PT Subjective Patient Comments Patient Comments Pt saw Dr. Almazan's PA, states took off bandage. Her incision is healing and itching, took an xray. She is still restricted from driving, swimming. She is still under a 90 deg hip flexion limit. Presents with spc. Next follow up on 11/07. She reports am are harder, achy. PT-OP-D Balance Start: 09/14/23 11:19 Freq: Status: Active Protocol: Document 10/03/23 13:44 NM (Rec: 10/03/23 15:53 NM [id number]) Balance Tests Single Limb Standing Single Limb- Right <1 sec (no increased pain) to assess if ready to d/c FWW to spc Single Limb- Left 2 sec (no increased pain) PT-OP-E Functional Tests Start: 09/14/23 11:19 Freq: Status: Active Protocol: Document 10/03/23 13:44 NM (Rec: 10/03/23 14:34 NM [id number]) Functional Tests 6 Minute Walk Test Distance RE: 379 ft, IE: 740 ft Device Used RE: 4ww, IE: 4ww Comments pain w/ ambulation but reduced w/ AD use Five Times Sit to Stand Test Score RE: did not attempt, IE: 28 sec Comments increased time; painful in hip PT-OP-F Manual Assessment Start: 09/14/23 11:19 Freq: Status: Active Protocol: Document 10/03/23 13:44 NM (Rec: 10/03/23 14:34 NM [id number]) Manual Assessments Soft Tissue Assessment Soft Tissue Mobility Assessment Tenderness along lateral hip and along anterior incision, slight tenderness posteriorly Joint Mobility Assessment Joint Mobility Assessment limited AROM of R hip due to precautions PT-OP-G Mobility & Gait Start: 09/14/23 11:19 Freq: Status: Active Protocol: Document 10/03/23 13:44 NM (Rec: 10/03/23 15:52 NM [id number]) OP Mobility Evaluation Bed Mobility Rolling close SBA Supine to and from Sit close SBA Transfers Sit to Stand without AD and minimal hand support from surface, close SBA OP Gait Assessment Gait Gait Assistance Required: Standby Assistance,Contact Guard Assist Assistive Devices Assistive Device Gait Belt,Straight Cane,Front Wheeled Walker Gait Deviations General Gait Pattern Antalgic Comments Gait Comments Limited RLE extension during stance. Demos spc use far to L side, moderately dependent for balance. Transition to FWW , which pt uses step to gait with more normal mechanics and demos better trunk stability PT-OP-H Neuro Start: 09/14/23 11:19 Freq: Status: Active Protocol: Document 10/03/23 13:44 NM (Rec: 10/03/23 14:34 NM [id number]) Sensation Evaluation Comments Summary Comments Decreased along R lateral thigh to mid thigh PT-OP-J Posture/Palpation/Skin Start: 09/14/23 11:19 Freq: Status: Active Protocol: Document 10/03/23 13:44 NM (Rec: 10/03/23 14:34 NM [id number]) Posture Evaluation Position Standing Head/C-Spine Posture Forward Head L-Spine Posture Increased Lordosis Weight Distribution Weight Shifted Left Hip Posture (L) Neutral,(R) Externally Rotated Knee Posture (L) Genu Valgus,(R) Genu Valgus Patellar Posture (L) Superior,(R) Superior Ankle/Foot Posture (L) Pronated,(R) Pronated Comments Posture Comments Demos less fwd flexed trunk posture post op and near equal WB on BLE in stance Palpation Assessment Location R hip Palpation Findings Soft Tissue Tightness, Tenderness Palpation Details 10/03/23: tenderness along anterior and lateral thigh, mild posterior hip tenderness, slight numbness along mid lateral thigh; scar covered by bandage and bruising present along anterior and lateral leg 09/14/23: tenderness to palpation along anterior, medial, and posterior hip muscles, hip joint Skin Assessment Incisional Assessment Incision Appearance/Comments Incision covered by bandage but no redness, drainage or other signs/symptoms of infection or DVT. Slight swelling at R ankle but less proximally PT-OP-K Range of Motion Start: 09/14/23 11:19 Freq: Status: Active Protocol: Document 10/03/23 13:44 NM (Rec: 10/03/23 14:34 NM [id number]) Hip Goniometric Range of Motion Hip Left Flexion w/Knee Flexed 105 Abduction 18 Internal Rotation 35 External Rotation 30 Right Flexion w/Knee Flexed 75 Abduction 5 Comments 09/14/23: 100 deg flex, 10 deg abd, 20 deg IR, 35 deg ER PT-OP-M Strength Start: 09/14/23 11:19 Freq: Status: Active Protocol: Document 10/03/23 13:44 NM (Rec: 10/03/23 14:34 NM [id number]) Hip Strength Hip Manual Muscle Testing Left Flexion (L2) 4+ Good+ Extension (S1) 4+ Good+ Abduction 4+ Good+ Adduction 4+ Good+ External Rotation 4+ Good+ Internal Rotation 4+ Good+ Right Flexion (L2) 3 Fair Abduction 3 Fair Adduction 3 Fair Comments 09/14/23: 4-/5 for all pre-op; pain with IR, flex 10/03/23: Not formally tested at re-evaluation due to precautions; however pt able to perform SLR to bring leg on /off plinth during transfer and heels slides Knee Strength Knee Manual Muscle Testing Left Flexion (S2) 4+ Good+ Extension (L3) 4+ Good+ Right Flexion (S2) 3+ Fair+ Extension (L3) 3+ Fair+ Comments 09/14/23: 4/5 pre-op 10/03/23: 3+/5 post op Ankle/Foot Strength Ankle and Foot Manual Muscle Testing Left Dorsiflexion (L4) 4+ Good+ Plantarflexion (S1) 4+ Good+ Comments 10/03/23, 09/14/23: tested in sitting Right Dorsiflexion (L4) 4+ Good+ Plantarflexion (S1) 4+ Good+ Comments 10/03/23, 09/14/23: tested in sitting PT-OP-Q Treatments Start: 09/14/23 11:19 Freq: Status: Active Protocol: Document 10/12/23 10:30 NM (Rec: 10/12/23 11:15 NM [id number]) Therapeutic Exercises Supine Exercises hip adduction Supine Exercise Name isometric; hooklying and head/ shoulders elevated Side bilateral Reps/Minutes 2x10 with 5 hold Comments cued submaximal and pain free marching Supine Exercise Name head/shoulders elevated, hooklying; with TrA activation Side right Reps/Minutes 2x15 Comments below 90 deg hip flex; HEP review for precautions heel slides Supine Exercise Name head/shoulders elevated, hooklying Side right Equipment Used pillow case Reps/Minutes 2x10 Comments cued to maintain <90 deg flex; HEP review for precautions Sitting Exercises Hamstring stretch Side right Equipment Used heel on small bolster Reps/Minutes 60 Comments hip below 90 deg; pain free but good stretch reported hip abduction Sitting Exercise Name isometric Side bilateral Resistance level 1 band Reps/Minutes 2x10x5 hold Comments hips not >90 deg flex; pain free LAQ Side bilateral Resistance 1# ankle weight Reps/Minutes 2x10 with 2 hold Comments good quad set, cued slower for control Manual Therapy Treatment Consent Patient gave verbal consent for manual Yes treatment Soft Tissue Mobilization R hip Body Location swelling management, quad, hip flexors, HS, adductors Mobilization Type Rolling,Other Intensity/Depth Superficial Body Position Hooklying Comments Performed distal > proximal gentle soft tissue mobilization in hooklying with legs elevated, from ankle > hip. Additional superficial soft tissue mobilization of quad, hip flexors, adductors, and hamstrings. Avoiding healing incision. Pt has ADD and quad tightness, reduced w/ rolling Manual Techniques Incision assessment Comments Incision intact, no signs or symptoms of infection Self-Care/Home Management Treatment Education Patient Education Joint Protection Other Education Reviewed precautions: no hip ext, no max hip ER, no bridging, no hip flexion > 90 Education again on bed mobility to limit hip ER, no bending over to floor or april where knee above hip PT-OP-T Assessment and Plan Start: 09/14/23 11:19 Freq: Status: Active Protocol: Document 10/12/23 10:30 NM (Rec: 10/12/23 11:15 NM [id number]) Physical Therapy Assessment Goals Transfers Impairment pt wants to return to gardening [facility]iary Goal (LTG) If appropriate per precautions , pt will be able to transfer to/from floor in a controlled manner for at least 5 reps in order to be able to return to gardening LTG Duration 12 weeks gait Impairment 6 MWT pre-op 704 ft with 4ww; post op with 379 ft FWW Impairment . Short Term Goal (STG) Pt will demonstrate normal gait mechanics without LRAD for household and short community distances in order to demonstrate return to PLOF and improved balance for gait/ activity tolerance STG Duration 6 weeks [facility]iary Goal (LTG) Pt will improve 6 MWT distance without LRAD to >1000 ft, if appropriate, in order to demonstrate improved gait mechanics, endurance, and pain management for community participation LTG Duration 12 weeks weakness Impairment R hip strength 4-/5 pre-op, 3/ 5 post-op Impairment . Short Term Goal (STG) Pt will be able to perform 5x STS test in fewer than 15 seconds without increase in R hip pain (pre-op 28 sec) in order to demonstrate improved BLE strength for gait, transfers, and stairs STG Duration 6 weeks [facility]it[facility]iary Goal (LTG) Pt will improve R hip strength globally post-operatively to at least 4+/5 MMT in order to demonstrate improved strength for transfers, gait, stairs, and gardening LTG Duration 12 weeks Stairs Impairment has 15 stairs inside home, 3 steps outside home Impairment . Short Term Goal (STG) Pt will be able to perform at least 15 stairs using rails or AD IND post-operatively in order to demonstrate improved household mobility STG Duration 4 weeks [facility]iary Goal (LTG) Pt will have no limitation with stairs due to R hip pain in order to be able to perform all household stairs and stairs within community LTG Duration 12 weeks Hip ROM Impairment global limitations in hip flex , abd Impairment . Short Term Goal (STG) Pt will improve R hip flexion AROM to at least 95 deg in order to demonstrate improved ROM for swing phase of gait STG Duration 6 weeks [facility]iary Goal (LTG) Pt will demonstrate R hip flexion AROM to at least 110 deg in order to be able to garden LTG Duration 12 weeks Assessment Summary Assessment Pt tolerated session well without any R hip pain. Currently 2 weeks post op. Reviewed hip precautions following visit with surgeon's office yesterday. Reviewed heel slides and marching in supine to ensure pt compliance with restriction <90 deg hip flex. Pt responds well to seated hamstring stretch without forward trunk flexion, able to achieve full TKE. Pt progressed to banded hip abduction isometric and LAQ with 1#. Trialed banded LAQ but pt unable to perform due to discomfort at R groin ( discontinued). Pt would benefit from skilled PT for R hip mobility and strengthening in order to improve ability to perform ADLs and to improve mobility. Physical Therapy Plan Frequency and Duration Frequency of Treatment 2x/Week Duration of treatment (weeks) 12 Plan of Care Start Date 10/03/23 Plan of Care End Date 12/29/23 Therapeutic Interventions Therapeutic Interventions Balance Training,Gait Training ,Home Exercise Program,Joint Mobilizations,Manual Therapy, Neuromuscular Re-education, Orthotic/Prosthetic Management ,Patient/Caregiver Education, Self-Care/Home Management, Sensory Integration,Soft Tissue Mobilization,Taping, Therapeutic Activities, Therapeutic Exercises Modalities Cold Pack/Ice Massage,Electric Stimulation,Hot Packs, Ultrasound Next Visit Focus/Plan Next Note Type Treatment Note Next Visit Plan Anterior hip precautions and no hip flex >90 deg, WBAT STS, side steps, TKE standing, LAQ c/ 1#, HSC, hip abd samir in sitting c/ band, hip add, standing marching, heel slides , hip abd, gait training with spc, balance manual prn
--- NOTE | 2023-10-16 12:56 | PT.OTN ---
Current Diagnoses Unilateral primary osteoarthritis, right hip (10/16/23) Stiffness of right hip, not elsewhere classified (10/16/23) Other lack of coordination (10/16/23) Weakness (10/16/23) Physical Therapy Treatment Note PT-OP-A Visit Information Start: 09/14/23 11:19 Freq: Status: Active Protocol: Document 10/16/23 09:48 NM (Rec: 10/16/23 10:33 NM [id number]) Out-Patient Physical Therapy Visit Information Visit Information Visit Type Treatment Note Visit Start Time 09:49 Visit Stop Time 10:30 Visit Number 6 Evaluation Information Evaluation Date 09/14/23 Precautions Precautions Anterior hip precautions (no hip ext, no bridge, no ER), and no hip flex >90 deg DOS 09/26/23 PT-OP-B Current Condition Start: 09/14/23 11:19 Freq: Status: Active Protocol: Document 10/03/23 13:44 NM (Rec: 10/03/23 14:34 NM [id number]) Current Condition History of Current Condition Onset Date DOS 09/26/23 Current Complaints pain, poor mobility, gait, balance History of Current Condition 10/03/23: Pt presents following R AMADOR on 09/26/23. Pt reports that she feels really good. She had no complications with surgery. She is still taking pain medications and has a large bruise along her L hip. She presents with spc in L hand. She spent the night in the hospital. Pt able to state hip precautions (no ER, no hip ext). She recently FWW. She has been sleeping upstairs , able to use stairs very well. Has been sleeping both in guest room and in her bed due to transition into bed because has to get into bed on L side. Has been icigin 2-3x/ day, taking acetaminophen/ ibuprofen 4-5x/day. She has follow up with Dr. Almazan next week. She has numbness along the R lateral leg, states getting better. Does not report any signs or symptoms of infection. She has been doing the HEP from hospital every day. 09/14/23: Pt presents with R hip pain. She will surgery in September 25. Planning on an anterior approach. Pt had lumbar surgery in January, which went well. Last visit with Dr. Honeycutt for pain in July, ok to T. Recently finished PT in June. 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 She had a collapsed R arch in the . She reports impairments in standing time, standing straight up, sleeping (wakes her up at night). She has been using 4ww since back surgery, only uses periodically. Plans to get FWW . Pt has 3 steps to enter home , rails on both sides; garage has 3 steps with a handle on the R side. She has 15 steps with rail on R side inside with a bedroom upstairs; she does have a room downstairs where she can sleep but still has to bathe upstairs. She has a bench in the bathtub but also has a shower chair. She lives with her who can physically help her. Treatment Goals Patient/Caregiver Goals gardening (hands and knees or sitting on ground) Prior Functional Status Baseline Function- ADL's Independent Baseline Function- Mobility Modified Independent Baseline Function- Gait ambulation 1 block w/o AD, better w/ 4WW Baseline Function- Recreation/Hobbies sewing, lifting sewing machine , swim 3x/wk Baseline Function- Other hip ER with dressing using clothing to help PT-OP-C Subjective Start: 09/14/23 11:19 Freq: Status: Active Protocol: Document 10/16/23 09:48 NM (Rec: 10/16/23 10:33 NM [id number]) OP-PT Subjective Patient Comments Patient Comments Pt reports pain is next to nothing, states still only feels anything on her lateral thigh. She stood for 45 minutes yesterday to cook; only sat down 1x. States am still harder but feels better as day improves. She has done some reciprocal walking up stairs, holding on for balance . PT-OP-D Balance Start: 09/14/23 11:19 Freq: Status: Active Protocol: Document 10/03/23 13:44 NM (Rec: 10/03/23 15:53 NM [id number]) Balance Tests Single Limb Standing Single Limb- Right <1 sec (no increased pain) to assess if ready to d/c FWW to spc Single Limb- Left 2 sec (no increased pain) PT-OP-E Functional Tests Start: 09/14/23 11:19 Freq: Status: Active Protocol: Document 10/03/23 13:44 NM (Rec: 10/03/23 14:34 NM [id number]) Functional Tests 6 Minute Walk Test Distance RE: 379 ft, IE: 740 ft Device Used RE: 4ww, IE: 4ww Comments pain w/ ambulation but reduced w/ AD use Five Times Sit to Stand Test Score RE: did not attempt, IE: 28 sec Comments increased time; painful in hip PT-OP-F Manual Assessment Start: 09/14/23 11:19 Freq: Status: Active Protocol: Document 10/03/23 13:44 NM (Rec: 10/03/23 14:34 NM [id number]) Manual Assessments Soft Tissue Assessment Soft Tissue Mobility Assessment Tenderness along lateral hip and along anterior incision, slight tenderness posteriorly Joint Mobility Assessment Joint Mobility Assessment limited AROM of R hip due to precautions PT-OP-G Mobility & Gait Start: 09/14/23 11:19 Freq: Status: Active Protocol: Document 10/03/23 13:44 NM (Rec: 10/03/23 15:52 NM [id number]) OP Mobility Evaluation Bed Mobility Rolling close SBA Supine to and from Sit close SBA Transfers Sit to Stand without AD and minimal hand support from surface, close SBA OP Gait Assessment Gait Gait Assistance Required: Standby Assistance,Contact Guard Assist Assistive Devices Assistive Device Gait Belt,Straight Cane,Front Wheeled Walker Gait Deviations General Gait Pattern Antalgic Comments Gait Comments Limited RLE extension during stance. Demos spc use far to L side, moderately dependent for balance. Transition to FWW , which pt uses step to gait with more normal mechanics and demos better trunk stability PT-OP-H Neuro Start: 09/14/23 11:19 Freq: Status: Active Protocol: Document 10/03/23 13:44 NM (Rec: 10/03/23 14:34 NM [id number]) Sensation Evaluation Comments Summary Comments Decreased along R lateral thigh to mid thigh PT-OP-J Posture/Palpation/Skin Start: 09/14/23 11:19 Freq: Status: Active Protocol: Document 10/03/23 13:44 NM (Rec: 10/03/23 14:34 NM [id number]) Posture Evaluation Position Standing Head/C-Spine Posture Forward Head L-Spine Posture Increased Lordosis Weight Distribution Weight Shifted Left Hip Posture (L) Neutral,(R) Externally Rotated Knee Posture (L) Genu Valgus,(R) Genu Valgus Patellar Posture (L) Superior,(R) Superior Ankle/Foot Posture (L) Pronated,(R) Pronated Comments Posture Comments Demos less fwd flexed trunk posture post op and near equal WB on BLE in stance Palpation Assessment Location R hip Palpation Findings Soft Tissue Tightness, Tenderness Palpation Details 10/03/23: tenderness along anterior and lateral thigh, mild posterior hip tenderness, slight numbness along mid lateral thigh; scar covered by bandage and bruising present along anterior and lateral leg 09/14/23: tenderness to palpation along anterior, medial, and posterior hip muscles, hip joint Skin Assessment Incisional Assessment Incision Appearance/Comments Incision covered by bandage but no redness, drainage or other signs/symptoms of infection or DVT. Slight swelling at R ankle but less proximally PT-OP-K Range of Motion Start: 09/14/23 11:19 Freq: Status: Active Protocol: Document 10/03/23 13:44 NM (Rec: 10/03/23 14:34 NM [id number]) Hip Goniometric Range of Motion Hip Left Flexion w/Knee Flexed 105 Abduction 18 Internal Rotation 35 External Rotation 30 Right Flexion w/Knee Flexed 75 Abduction 5 Comments 09/14/23: 100 deg flex, 10 deg abd, 20 deg IR, 35 deg ER PT-OP-M Strength Start: 09/14/23 11:19 Freq: Status: Active Protocol: Document 10/03/23 13:44 NM (Rec: 10/03/23 14:34 NM [id number]) Hip Strength Hip Manual Muscle Testing Left Flexion (L2) 4+ Good+ Extension (S1) 4+ Good+ Abduction 4+ Good+ Adduction 4+ Good+ External Rotation 4+ Good+ Internal Rotation 4+ Good+ Right Flexion (L2) 3 Fair Abduction 3 Fair Adduction 3 Fair Comments 09/14/23: 4-/5 for all pre-op; pain with IR, flex 10/03/23: Not formally tested at re-evaluation due to precautions; however pt able to perform SLR to bring leg on /off plinth during transfer and heels slides Knee Strength Knee Manual Muscle Testing Left Flexion (S2) 4+ Good+ Extension (L3) 4+ Good+ Right Flexion (S2) 3+ Fair+ Extension (L3) 3+ Fair+ Comments 09/14/23: 4/5 pre-op 10/03/23: 3+/5 post op Ankle/Foot Strength Ankle and Foot Manual Muscle Testing Left Dorsiflexion (L4) 4+ Good+ Plantarflexion (S1) 4+ Good+ Comments 10/03/23, 09/14/23: tested in sitting Right Dorsiflexion (L4) 4+ Good+ Plantarflexion (S1) 4+ Good+ Comments 10/03/23, 09/14/23: tested in sitting PT-OP-Q Treatments Start: 09/14/23 11:19 Freq: Status: Active Protocol: Document 10/16/23 09:48 NM (Rec: 10/16/23 10:33 NM [id number]) Therapeutic Exercises Sitting Exercises STS Sitting Exercise Name HEP Side bilateral Resistance level 2 band at thighs Equipment Used slightly elevated plinth to avoid hip flex > 90 deg Reps/Minutes 2x10 Comments arms in front for ant shift; equal WB, pain free Hamstring stretch Side right Equipment Used heel on small bolster, with strap Reps/Minutes 2x60 Comments hip below 90 deg; pain free but good stretch reported hip abduction Sitting Exercise Name isometric Side bilateral Resistance level 2 band Reps/Minutes 2x10x5 hold Comments hips not above 90 deg flex; pain free calf stretch Sitting Exercise Name gastrocnemius Side right Equipment Used gait belt Reps/Minutes 2x60 LAQ Side bilateral Resistance 1# ankle weight Reps/Minutes 2x10 with 3 hold Comments improved control and quad activation; cued ankle DF Standing Exercises side steps Side bilateral Resistance AROM > 1# ankle wts Equipment Used with hand support for balance Reps/Minutes 4x8 ft Comments good neutral foot positioning march Side bilateral Resistance AROM > 1# ankle weights Equipment Used with 1 hand support for balance Reps/Minutes 2x10 ea (non alternating) Comments no pain in R stance, R hip flex below 90 deg Manual Therapy Treatment Consent Patient gave verbal consent for manual Yes treatment Soft Tissue Mobilization R hip Body Location swelling management, quad, hip flexors, HS, adductors Mobilization Type Rolling,Other Intensity/Depth Superficial Body Position Hooklying Comments Performed distal > proximal gentle soft tissue mobilization in hooklying with legs elevated, from ankle > hip. Additional superficial soft tissue mobilization of quad, hip flexors, adductors, and hamstrings. Avoiding healing incision. Pt has lateral distal thigh, ADD and quad tightness, reduced w/ rolling. Neuro Re-Education Treatment Balance Activities SLS Comments 1. w/o hand support: 2 sec L, 1 sec R (pain free 2. w/ 1 finger support: 30 sec ea leg (HEP) PT-OP-T Assessment and Plan Start: 09/14/23 11:19 Freq: Status: Active Protocol: Document 10/16/23 09:48 NM (Rec: 10/16/23 10:33 NM [id number]) Physical Therapy Assessment Goals Transfers Impairment pt wants to return to gardening Skilled Nursing Goal (LTG) If appropriate per precautions , pt will be able to transfer to/from floor in a controlled manner for at least 5 reps in order to be able to return to gardening LTG Duration 12 weeks gait Impairment 6 MWT pre-op 704 ft with 4ww; post op with 379 ft FWW Impairment . Short Term Goal (STG) Pt will demonstrate normal gait mechanics without LRAD for household and short community distances in order to demonstrate return to PLOF and improved balance for gait/ activity tolerance STG Duration 6 weeks Stove Carriage Operator Goal (LTG) Pt will improve 6 MWT distance without LRAD to >1000 ft, if appropriate, in order to demonstrate improved gait mechanics, endurance, and pain management for community participation LTG Duration 12 weeks weakness Impairment R hip strength 4-/5 pre-op, 3/ 5 post-op Impairment . Short Term Goal (STG) Pt will be able to perform 5x STS test in fewer than 15 seconds without increase in R hip pain (pre-op 28 sec) in order to demonstrate improved BLE strength for gait, transfers, and stairs STG Duration 6 weeks Skilled Nursing Goal (LTG) Pt will improve R hip strength globally post-operatively to at least 4+/5 MMT in order to demonstrate improved strength for transfers, gait, stairs, and gardening LTG Duration 12 weeks Stairs Impairment has 15 stairs inside home, 3 steps outside home Impairment . Short Term Goal (STG) Pt will be able to perform at least 15 stairs using rails or AD IND post-operatively in order to demonstrate improved household mobility STG Duration 4 weeks Stove Carriage Operator Goal (LTG) Pt will have no limitation with stairs due to R hip pain in order to be able to perform all household stairs and stairs within community LTG Duration 12 weeks Hip ROM Impairment global limitations in hip flex , abd Impairment . Short Term Goal (STG) Pt will improve R hip flexion AROM to at least 95 deg in order to demonstrate improved ROM for swing phase of gait STG Duration 6 weeks Skilled Nursing Goal (LTG) Pt will demonstrate R hip flexion AROM to at least 110 deg in order to be able to garden LTG Duration 12 weeks Assessment Summary Assessment Pt tolerated session well, no reports of R hip pain during session. Progressed to more seated/standing exercises. Pt demonstrates good form from slightly elevated plinth to maintain hip precautions during STS, band added to limit valgus and with cues to maintain wider ATILIO. Progressed to standing march and lateral stepping with hand support and slight resistance. No pain with stance on RLE. Trialed SLS with hand support to prepare pt for improved stance time during gait without AD. Pt continues to have mild swelling at R ankle and tenderness at R thigh, reduced with gentle soft tissue mobilization and swelling management. Pt would benefit from skilled PT for Physical Therapy Plan Frequency and Duration Frequency of Treatment 2x/Week Duration of treatment (weeks) 12 Plan of Care Start Date 10/03/23 Plan of Care End Date 12/29/23 Therapeutic Interventions Therapeutic Interventions Balance Training,Gait Training ,Home Exercise Program,Joint Mobilizations,Manual Therapy, Neuromuscular Re-education, Orthotic/Prosthetic Management ,Patient/Caregiver Education, Self-Care/Home Management, Sensory Integration,Soft Tissue Mobilization,Taping, Therapeutic Activities, Therapeutic Exercises Modalities Cold Pack/Ice Massage,Electric Stimulation,Hot Packs, Ultrasound Next Visit Focus/Plan Next Note Type Treatment Note Next Visit Plan Anterior hip precautions and no hip flex >90 deg, WBAT Case and SLS to assess if ready to ambulate w/o AD. STS, side steps, LAQ c/ 1-2#, HSC, hip abd samir in sitting c/ band, standing marching, heel slides, hip abd, balance, side steps (add band if able) manual prn for swelling and pain management
--- NOTE | 2023-10-23 16:37 | PT.OTN ---
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 Pt reports that she feels really good. She had no complications with surgery. She is still taking pain medications and has a large bruise along her L hip. She presents with spc in L hand. She spent the night in the hospital. Pt able to state hip precautions (no ER, no hip ext). She recently FWW. She has been sleeping upstairs , able to use stairs very well. Has been sleeping both in guest room and in her bed due to transition into bed because has to get into bed on L side. Has been icigin 2-3x/ day, taking acetaminophen/ ibuprofen 4-5x/day. She has follow up with Dr. Almazan next week. She has numbness along the R lateral leg, states getting better. Does not report any signs or symptoms of infection. She has been doing the HEP from hospital every day. 09/14/23: Pt presents with R hip pain. She will surgery in September 25. Planning on an anterior approach. Pt had lumbar surgery in January, which went well. Last visit with Dr. Honeycutt for pain in July, ok to BLT. Recently finished PT in June. 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 She had a collapsed R arch in the . She reports impairments in standing time, standing straight up, sleeping (wakes her up at night). She has been using 4ww since back surgery, only uses periodically. Plans to get FWW . Pt has 3 steps to enter home , rails on both sides; garage has 3 steps with a handle on the R side. She has 15 steps with rail on R side inside with a bedroom upstairs; she does have a room downstairs where she can sleep but still has to bathe upstairs. She has a bench in the bathtub but also has a shower chair. She lives with her who can physically help her. Treatment Goals Patient/Caregiver Goals gardening (hands and knees or sitting on ground) Prior Functional Status Baseline Function- ADL's Independent Baseline Function- Mobility Modified Independent Baseline Function- Gait ambulation 1 block w/o AD, better w/ 4WW Baseline Function- Recreation/Hobbies sewing, lifting sewing machine , swim 3x/wk Baseline Function- Other hip ER with dressing using clothing to help PT-OP-C Subjective Start: 09/14/23 11:19 Freq: Status: Active Protocol: Document 10/23/23 08:03 AB (Rec: 10/23/23 12:58 AB [id number]) OP-PT Subjective Patient Comments Patient Comments Patient reports lateral right LE feels sore when she touches it, comments it just feels odd. Patient rates right knee pain 1/10 start of session. SLS right LE without UE use 5, 4,2 PT-OP-D Balance Start: 09/14/23 11:19 Freq: Status: Active Protocol: Document 10/23/23 08:03 AB (Rec: 10/23/23 13:01 AB [id number]) Case Balance Assessment Evaluation Sitting to Standing Ability Independent w/out Hands Unsupported Stance Safely- 2 minutes Sitting Unsupported, Feet on Floor Safely- 2 minutes Standing to Sitting Ability Safely, Minimal Hand Use Transfer Ability Safely, Minimal Hand Use Unsupported Stance- Eyes Closed Safely, 10 seconds Unsupported Stance- Eyes Open Independent, 1 minute Reaching Forward Standing Safely, 5 inches Pick- Up Object From Floor Requires Assistance Look Behind Shoulder - Standing Shifts Weight Well Turning 360 Degrees Turns Bilateral, < 4 secs Unsupported Stance, Alternating Feet on (I)- 8 Steps in 20 secs Stair Unsupported Tandem Stance Balance Lost- Step/Stand Unilateral Leg Stance Lifts Leg/Unable to Hold Total Score Case Total Score (out of 56 points) 44 Case Impairment Rating 0% Impaired (Score 56) PT-OP-E Functional Tests Start: 09/14/23 11:19 Freq: Status: Active Protocol: Document 10/03/23 13:44 NM (Rec: 10/03/23 14:34 NM [id number]) Functional Tests 6 Minute Walk Test Distance RE: 379 ft, IE: 740 ft Device Used RE: 4ww, IE: 4ww Comments pain w/ ambulation but reduced w/ AD use Five Times Sit to Stand Test Score RE: did not attempt, IE: 28 sec Comments increased time; painful in hip PT-OP-F Manual Assessment Start: 09/14/23 11:19 Freq: Status: Active Protocol: Document 10/03/23 13:44 NM (Rec: 10/03/23 14:34 NM [id number]) Manual Assessments Soft Tissue Assessment Soft Tissue Mobility Assessment Tenderness along lateral hip and along anterior incision, slight tenderness posteriorly Joint Mobility Assessment Joint Mobility Assessment limited AROM of R hip due to precautions PT-OP-G Mobility & Gait Start: 09/14/23 11:19 Freq: Status: Active Protocol: Document 10/03/23 13:44 NM (Rec: 10/03/23 15:52 NM [id number]) OP Mobility Evaluation Bed Mobility Rolling close SBA Supine to and from Sit close SBA Transfers Sit to Stand without AD and minimal hand support from surface, close SBA OP Gait Assessment Gait Gait Assistance Required: Standby Assistance,Contact Guard Assist Assistive Devices Assistive Device Gait Belt,Straight Cane,Front Wheeled Walker Gait Deviations General Gait Pattern Antalgic Comments Gait Comments Limited RLE extension during stance. Demos spc use far to L side, moderately dependent for balance. Transition to FWW , which pt uses step to gait with more normal mechanics and demos better trunk stability PT-OP-H Neuro Start: 09/14/23 11:19 Freq: Status: Active Protocol: Document 10/03/23 13:44 NM (Rec: 08/06/24 14:34 NM [id number]) Sensation Evaluation Comments Summary Comments Decreased along R lateral thigh to mid thigh PT-OP-J Posture/Palpation/Skin Start: 09/14/23 11:19 Freq: Status: Active Protocol: Document 10/03/23 13:44 NM (Rec: 10/03/23 14:34 NM [id number]) Posture Evaluation Position Standing Head/C-Spine Posture Forward Head L-Spine Posture Increased Lordosis Weight Distribution Weight Shifted Left Hip Posture (L) Neutral,(R) Externally Rotated Knee Posture (L) Genu Valgus,(R) Genu Valgus Patellar Posture (L) Superior,(R) Superior Ankle/Foot Posture (L) Pronated,(R) Pronated Comments Posture Comments Demos less fwd flexed trunk posture post op and near equal WB on BLE in stance Palpation Assessment Location R hip Palpation Findings Soft Tissue Tightness, Tenderness Palpation Details 10/03/23: tenderness along anterior and lateral thigh, mild posterior hip tenderness, slight numbness along mid lateral thigh; scar covered by bandage and bruising present along anterior and lateral leg 09/14/23: tenderness to palpation along anterior, medial, and posterior hip muscles, hip joint Skin Assessment Incisional Assessment Incision Appearance/Comments Incision covered by bandage but no redness, drainage or other signs/symptoms of infection or DVT. Slight swelling at R ankle but less proximally PT-OP-K Range of Motion Start: 09/14/23 11:19 Freq: Status: Active Protocol: Document 10/03/23 13:44 NM (Rec: 10/03/23 14:34 NM [id number]) Hip Goniometric Range of Motion Hip Left Flexion w/Knee Flexed 105 Abduction 18 Internal Rotation 35 External Rotation 30 Right Flexion w/Knee Flexed 75 Abduction 5 Comments 09/14/23: 100 deg flex, 10 deg abd, 20 deg IR, 35 deg ER PT-OP-M Strength Start: 09/14/23 11:19 Freq: Status: Active Protocol: Document 10/03/23 13:44 NM (Rec: 10/03/23 14:34 NM [id number]) Hip Strength Hip Manual Muscle Testing Left Flexion (L2) 4+ Good+ Extension (S1) 4+ Good+ Abduction 4+ Good+ Adduction 4+ Good+ External Rotation 4+ Good+ Internal Rotation 4+ Good+ Right Flexion (L2) 3 Fair Abduction 3 Fair Adduction 3 Fair Comments 09/14/23: 4-/5 for all pre-op; pain with IR, flex 10/03/23: Not formally tested at re-evaluation due to precautions; however pt able to perform SLR to bring leg on /off plinth during transfer and heels slides Knee Strength Knee Manual Muscle Testing Left Flexion (S2) 4+ Good+ Extension (L3) 4+ Good+ Right Flexion (S2) 3+ Fair+ Extension (L3) 3+ Fair+ Comments 09/14/23: 4/5 pre-op 10/03/23: 3+/5 post op Ankle/Foot Strength Ankle and Foot Manual Muscle Testing Left Dorsiflexion (L4) 4+ Good+ Plantarflexion (S1) 4+ Good+ Comments 10/03/23, 09/14/23: tested in sitting Right Dorsiflexion (L4) 4+ Good+ Plantarflexion (S1) 4+ Good+ Comments 10/03/23, 09/14/23: tested in sitting PT-OP-Q Treatments Start: 09/14/23 11:19 Freq: Status: Active Protocol: Document 10/23/23 08:03 AB (Rec: 10/23/23 12:58 AB [id number]) Therapeutic Exercises Sitting Exercises STS Sitting Exercise Name HEP Side bilateral Resistance level 2 band at thighs Equipment Used slightly elevated plinth to avoid hip flex > 90 deg Reps/Minutes 1x10 Comments arms in front for ant shift; equal WB, pain free hip abduction Sitting Exercise Name isometric Green band #3 toHEP Side bilateral Resistance level 3 band Reps/Minutes 2x10x5 hold Comments hips not above 90 deg flex; pain free Standing Exercises side steps Standing Exercise Name HEP Side bilateral Resistance level green band tied above knees Equipment Used with hand support for balance Reps/Minutes 4x8 ft Comments good neutral foot positioning Neuro Re-Education Treatment Balance Activities SLS Comments SLS with and without visual scanning and head turns hands above counter ending with Romberg position with head turns and visual scanning. PT-OP-T Assessment and Plan Start: 09/14/23 11:19 Freq: Status: Active Protocol: Document 10/23/23 08:03 AB (Rec: 10/23/23 12:58 AB [id number]) Physical Therapy Assessment Goals Transfers Impairment pt wants to return to gardening Health Information Technician Goal (LTG) If appropriate per precautions , pt will be able to transfer to/from floor in a controlled manner for at least 5 reps in order to be able to return to gardening LTG Duration 12 weeks gait Impairment 6 MWT pre-op 704 ft with 4ww; post op with 379 ft FWW Impairment . Short Term Goal (STG) Pt will demonstrate normal gait mechanics without LRAD for household and short community distances in order to demonstrate return to PLOF and improved balance for gait/ activity tolerance STG Duration 6 weeks Retirement Goal (LTG) Pt will improve 6 MWT distance without LRAD to >1000 ft, if appropriate, in order to demonstrate improved gait mechanics, endurance, and pain management for community participation LTG Duration 12 weeks weakness Impairment R hip strength 4-/5 pre-op, 3/ 5 post-op Impairment . Short Term Goal (STG) Pt will be able to perform 5x STS test in fewer than 15 seconds without increase in R hip pain (pre-op 28 sec) in order to demonstrate improved BLE strength for gait, transfers, and stairs STG Duration 6 weeks Retirement Goal (LTG) Pt will improve R hip strength globally post-operatively to at least 4+/5 MMT in order to demonstrate improved strength for transfers, gait, stairs, and gardening LTG Duration 12 weeks Stairs Impairment has 15 stairs inside home, 3 steps outside home Impairment . Short Term Goal (STG) Pt will be able to perform at least 15 stairs using rails or AD IND post-operatively in order to demonstrate improved household mobility STG Duration 4 weeks Retirement Goal (LTG) Pt will have no limitation with stairs due to R hip pain in order to be able to perform all household stairs and stairs within community LTG Duration 12 weeks Hip ROM Impairment global limitations in hip flex , abd Impairment . Short Term Goal (STG) Pt will improve R hip flexion AROM to at least 95 deg in order to demonstrate improved ROM for swing phase of gait STG Duration 6 weeks Retirement Goal (LTG) Pt will demonstrate R hip flexion AROM to at least 110 deg in order to be able to garden LTG Duration 12 weeks Assessment Summary Assessment Harleen rates muscle pain right hip 03/08 end of session. Score on Case test limited by hip precautions. Patient advised to continue to use SPC at all times. Physical Therapy Plan Frequency and Duration Frequency of Treatment 2x/Week Duration of treatment (weeks) 12 Plan of Care Start Date 10/03/23 Plan of Care End Date 12/29/23 Next Visit Focus/Plan Next Note Type Treatment Note Next Visit Plan Anterior hip precautions and no hip flex >90 deg, WBAT STS, side steps, LAQ c/ 1-2#, HSC, hip abd samir in sitting c / band, standing marching, heel slides, hip abd, balance, side steps (add band if able) manual prn for swelling and pain management
--- NOTE | 2023-10-26 12:45 | PT.OTN ---
Current Diagnoses Unilateral primary osteoarthritis, right hip (10/26/23) Stiffness of right hip, not elsewhere classified (10/26/23) Other lack of coordination (10/26/23) Weakness (10/26/23) Physical Therapy Treatment Note PT-OP-A Visit Information Start: 09/14/23 11:19 Freq: Status: Active Protocol: Document 10/26/23 07:23 NM (Rec: 10/26/23 07:23 NM [id number]) Out-Patient Physical Therapy Visit Information Visit Information Visit Type Treatment Note Visit Note DOS 09/26/23 Visit Start Time 09:49 Visit Stop Time 10:29 Visit Number 8 Evaluation Information Evaluation Date 09/14/23 Precautions Precautions Anterior hip precautions (no hip ext, no bridge, no ER), and no hip flex >90 deg DOS 09/26/23 PT-OP-B Current Condition Start: 09/14/23 11:19 Freq: Status: Active Protocol: Document 10/03/23 13:44 NM (Rec: 10/03/23 14:34 NM [id number]) Current Condition History of Current Condition Onset Date DOS 09/26/23 Current Complaints pain, poor mobility, gait, balance History of Current Condition 10/03/23: Pt presents following R [facility]ADOR on 09/26/23. Pt reports that she feels really good. She had no complications with surgery. She is still taking pain medications and has a large bruise along her L hip. She presents with spc in L hand. She spent the night in the hospital. Pt able to state hip precautions (no ER, no hip ext). She recently FWW. She has been sleeping upstairs , able to use stairs very well. Has been sleeping both in guest room and in her bed due to transition into bed because has to get into bed on L side. Has been icigin 2-3x/ day, taking acetaminophen/ ibuprofen 4-5x/day. She has follow up with Dr. Almazan next week. She has numbness along the R lateral leg, states getting better. Does not report any signs or symptoms of infection. She has been doing the HEP from hospital every day. 09/14/23: Pt presents with R hip pain. She will surgery in September 25. Planning on an anterior approach. Pt had lumbar surgery in January, which went well. Last visit with Dr. Honeycutt for pain in July, ok to BLT. Recently finished PT in June. 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 She had a collapsed R arch in the . She reports impairments in standing time, standing straight up, sleeping (wakes her up at night). She has been using 4ww since back surgery, only uses periodically. Plans to get FWW . Pt has 3 steps to enter home , rails on both sides; garage has 3 steps with a handle on the R side. She has 15 steps with rail on R side inside with a bedroom upstairs; she does have a room downstairs where she can sleep but still has to bathe upstairs. She has a bench in the bathtub but also has a shower chair. She lives with her who can physically help her. Treatment Goals Patient/Caregiver Goals gardening (hands and knees or sitting on ground) Prior Functional Status Baseline Function- ADL's Independent Baseline Function- Mobility Modified Independent Baseline Function- Gait ambulation 1 block w/o AD, better w/ 4WW Baseline Function- Recreation/Hobbies sewing, lifting sewing machine , swim 3x/wk Baseline Function- Other hip ER with dressing using clothing to help PT-OP-C Subjective Start: 09/14/23 11:19 Freq: Status: Active Protocol: Document 10/26/23 07:23 NM (Rec: 10/26/23 07:23 NM [id number]) OP-PT Subjective Patient Comments Patient Comments Pt reports some soreness after last session but states achy. States not painful, just activated. She has reached out to Dr. Almazan for clarification with precautions . States ambulated yesterday around block with 2 walking stick, no pain, no limping. She has not been taking medication since Monday. She got new orthotics for R foot 1 year ago and new shoes, planning to get orthotics adjusted PT-OP-D Balance Start: 09/14/23 11:19 Freq: Status: Active Protocol: Document 10/23/23 08:03 AB (Rec: 10/23/23 13:01 AB [id number]) Case Balance Assessment Evaluation Sitting to Standing Ability Independent w/out Hands Unsupported Stance Safely- 2 minutes Sitting Unsupported, Feet on Floor Safely- 2 minutes Standing to Sitting Ability Safely, Minimal Hand Use Transfer Ability Safely, Minimal Hand Use Unsupported Stance- Eyes Closed Safely, 10 seconds Unsupported Stance- Eyes Open Independent, 1 minute Reaching Forward Standing Safely, 5 inches Pick- Up Object From Floor Requires Assistance Look Behind Shoulder - Standing Shifts Weight Well Turning 360 Degrees Turns Bilateral, < 4 secs Unsupported Stance, Alternating Feet on (I)- 8 Steps in 20 secs Stair Unsupported Tandem Stance Balance Lost- Step/Stand Unilateral Leg Stance Lifts Leg/Unable to Hold Total Score Case Total Score (out of 56 points) 44 Case Impairment Rating 0% Impaired (Score 56) PT-OP-E Functional Tests Start: 09/14/23 11:19 Freq: Status: Active Protocol: Document 10/03/23 13:44 NM (Rec: 10/03/23 14:34 NM [id number]) Functional Tests 6 Minute Walk Test Distance RE: 379 ft, IE: 740 ft Device Used RE: 4ww, IE: 4ww Comments pain w/ ambulation but reduced w/ AD use Five Times Sit to Stand Test Score RE: did not attempt, IE: 28 sec Comments increased time; painful in hip PT-OP-F Manual Assessment Start: 09/14/23 11:19 Freq: Status: Active Protocol: Document 10/03/23 13:44 NM (Rec: 10/03/23 14:34 NM [id number]) Manual Assessments Soft Tissue Assessment Soft Tissue Mobility Assessment Tenderness along lateral hip and along anterior incision, slight tenderness posteriorly Joint Mobility Assessment Joint Mobility Assessment limited AROM of R hip due to precautions PT-OP-G Mobility & Gait Start: 09/14/23 11:19 Freq: Status: Active Protocol: Document 10/03/23 13:44 NM (Rec: 10/03/23 15:52 NM [id number]) OP Mobility Evaluation Bed Mobility Rolling close SBA Supine to and from Sit close SBA Transfers Sit to Stand without AD and minimal hand support from surface, close SBA OP Gait Assessment Gait Gait Assistance Required: Standby Assistance,Contact Guard Assist Assistive Devices Assistive Device Gait Belt,Straight Cane,Front Wheeled Walker Gait Deviations General Gait Pattern Antalgic Comments Gait Comments Limited RLE extension during stance. Demos spc use far to L side, moderately dependent for balance. Transition to FWW , which pt uses step to gait with more normal mechanics and demos better trunk stability PT-OP-H Neuro Start: 09/14/23 11:19 Freq: Status: Active Protocol: Document 10/03/23 13:44 NM (Rec: 10/03/23 14:34 NM [id number]) Sensation Evaluation Comments Summary Comments Decreased along R lateral thigh to mid thigh PT-OP-J Posture/Palpation/Skin Start: 09/14/23 11:19 Freq: Status: Active Protocol: Document 10/03/23 13:44 NM (Rec: 10/03/23 14:34 NM [id number]) Posture Evaluation Position Standing Head/C-Spine Posture Forward Head L-Spine Posture Increased Lordosis Weight Distribution Weight Shifted Left Hip Posture (L) Neutral,(R) Externally Rotated Knee Posture (L) Genu Valgus,(R) Genu Valgus Patellar Posture (L) Superior,(R) Superior Ankle/Foot Posture (L) Pronated,(R) Pronated Comments Posture Comments Demos less fwd flexed trunk posture post op and near equal WB on BLE in stance Palpation Assessment Location R hip Palpation Findings Soft Tissue Tightness, Tenderness Palpation Details 10/03/23: tenderness along anterior and lateral thigh, mild posterior hip tenderness, slight numbness along mid lateral thigh; scar covered by bandage and bruising present along anterior and lateral leg 09/14/23: tenderness to palpation along anterior, medial, and posterior hip muscles, hip joint Skin Assessment Incisional Assessment Incision Appearance/Comments Incision covered by bandage but no redness, drainage or other signs/symptoms of infection or DVT. Slight swelling at R ankle but less proximally PT-OP-K Range of Motion Start: 09/14/23 11:19 Freq: Status: Active Protocol: Document 10/03/23 13:44 NM (Rec: 10/03/23 14:34 NM [id number]) Hip Goniometric Range of Motion Hip Left Flexion w/Knee Flexed 105 Abduction 18 Internal Rotation 35 External Rotation 30 Right Flexion w/Knee Flexed 75 Abduction 5 Comments 09/14/23: 100 deg flex, 10 deg abd, 20 deg IR, 35 deg ER PT-OP-M Strength Start: 09/14/23 11:19 Freq: Status: Active Protocol: Document 10/03/23 13:44 NM (Rec: 10/03/23 14:34 NM [id number]) Hip Strength Hip Manual Muscle Testing Left Flexion (L2) 4+ Good+ Extension (S1) 4+ Good+ Abduction 4+ Good+ Adduction 4+ Good+ External Rotation 4+ Good+ Internal Rotation 4+ Good+ Right Flexion (L2) 3 Fair Abduction 3 Fair Adduction 3 Fair Comments 09/14/23: 4-/5 for all pre-op; pain with IR, flex 10/03/23: Not formally tested at re-evaluation due to precautions; however pt able to perform SLR to bring leg on /off plinth during transfer and heels slides Knee Strength Knee Manual Muscle Testing Left Flexion (S2) 4+ Good+ Extension (L3) 4+ Good+ Right Flexion (S2) 3+ Fair+ Extension (L3) 3+ Fair+ Comments 09/14/23: 4/5 pre-op 10/03/23: 3+/5 post op Ankle/Foot Strength Ankle and Foot Manual Muscle Testing Left Dorsiflexion (L4) 4+ Good+ Plantarflexion (S1) 4+ Good+ Comments 10/03/23, 09/14/23: tested in sitting Right Dorsiflexion (L4) 4+ Good+ Plantarflexion (S1) 4+ Good+ Comments 10/03/23, 09/14/23: tested in sitting PT-OP-Q Treatments Start: 09/14/23 11:19 Freq: Status: Active Protocol: Document 10/26/23 07:23 NM (Rec: 10/26/23 07:23 NM [id number]) Therapeutic Exercises Sitting Exercises STS Sitting Exercise Name HEP review Side bilateral Resistance level 2 band at thighs Equipment Used slightly elevated plinth to avoid hip flex > 90 deg Reps/Minutes 2x10 Comments pain free; cued to minimize valgus Standing Exercises ankle dorsiflexion Side bilateral Resistance AROM Equipment Used B hand support, back at wall for balance Reps/Minutes 2x10 Comments pain free but challenging heel raises Side bilateral Resistance AROM Equipment Used B hand support for balance Reps/Minutes 2x10 Comments challenging hip ADD stretch Standing Exercise Name WS onto LLE with B hand support with slight hip ABD on R side Side right Reps/Minutes 10x5 hold Comments pain free, reports good stretch side steps Standing Exercise Name HEP Side bilateral Resistance level 2 band above knees for improved comfort Equipment Used with hand support for balance Comments good neutral foot positioning march Side bilateral Resistance level 1 band at thigh Equipment Used with 1 hand support for balance Reps/Minutes 2x10 ea (non alternating) Comments no pain in R stance, R hip flex below 90 deg Manual Therapy Treatment Consent Patient gave verbal consent for manual Yes treatment Soft Tissue Mobilization R hip Body Location quad, hip flexors, HS, adductors, glute Mobilization Type Rolling,Other Intensity/Depth Superficial Body Position Hooklying Comments Increased tightness of R adductors especially near groin. Increased tightness and tenderness in glutes especially posterior near the greater trochanter. Slight reduction with mobilization PT-OP-T Assessment and Plan Start: 09/14/23 11:19 Freq: Status: Active Protocol: Document 10/26/23 07:23 NM (Rec: 10/26/23 07:23 NM [id number]) Physical Therapy Assessment Goals Transfers Impairment pt wants to return to gardening [employer] Goal (LTG) If appropriate per precautions , pt will be able to transfer to/from floor in a controlled manner for at least 5 reps in order to be able to return to gardening LTG Duration 12 weeks gait Impairment 6 MWT pre-op 704 ft with 4ww; post op with 379 ft FWW Impairment . Short Term Goal (STG) Pt will demonstrate normal gait mechanics without LRAD for household and short community distances in order to demonstrate return to PLOF and improved balance for gait/ activity tolerance STG Duration 6 weeks Longterm Goal (LTG) Pt will improve 6 MWT distance without LRAD to >1000 ft, if appropriate, in order to demonstrate improved gait mechanics, endurance, and pain management for community participation LTG Duration 12 weeks weakness Impairment R hip strength 4-/5 pre-op, 3/ 5 post-op Impairment . Short Term Goal (STG) Pt will be able to perform 5x STS test in fewer than 15 seconds without increase in R hip pain (pre-op 28 sec) in order to demonstrate improved BLE strength for gait, transfers, and stairs STG Duration 6 weeks [employer] Goal (LTG) Pt will improve R hip strength globally post-operatively to at least 4+/5 MMT in order to demonstrate improved strength for transfers, gait, stairs, and gardening LTG Duration 12 weeks Stairs Impairment has 15 stairs inside home, 3 steps outside home Impairment . Short Term Goal (STG) Pt will be able to perform at least 15 stairs using rails or AD IND post-operatively in order to demonstrate improved household mobility STG Duration 4 weeks Longterm Goal (LTG) Pt will have no limitation with stairs due to R hip pain in order to be able to perform all household stairs and stairs within community LTG Duration 12 weeks Hip ROM Impairment global limitations in hip flex , abd Impairment . Short Term Goal (STG) Pt will improve R hip flexion AROM to at least 95 deg in order to demonstrate improved ROM for swing phase of gait STG Duration 6 weeks [employer] Goal (LTG) Pt will demonstrate R hip flexion AROM to at least 110 deg in order to be able to garden LTG Duration 12 weeks Assessment Summary Assessment Pt tolerated session well, reports feeling better at end of session. Continues to have increased restrictions of R adductors and glute. Reduced with soft tissue mobilization and gentle stretching within precautions. Regressed level of resistance with banded side steps for comfort, which improves pt's tenderness at her glutes. Progressed to banded march below 90 deg with short lever arm. Added B ankle strengthening to improve ankle stability for more normalized gait mechanics. Pt would benefit from skilled PT for R hip mobility and strength within precautions in order to improve functional mobility and activity tolerance during ADLs. Physical Therapy Plan Frequency and Duration Frequency of Treatment 2x/Week Duration of treatment (weeks) 12 Plan of Care Start Date 10/03/23 Plan of Care End Date 12/29/23 Therapeutic Interventions Therapeutic Interventions Balance Training,Gait Training ,Home Exercise Program,Joint Mobilizations,Manual Therapy, Neuromuscular Re-education, Orthotic/Prosthetic Management ,Patient/Caregiver Education, Self-Care/Home Management, Sensory Integration,Soft Tissue Mobilization,Taping, Therapeutic Activities, Therapeutic Exercises Modalities Cold Pack/Ice Massage,Electric Stimulation,Hot Packs, Ultrasound Next Visit Focus/Plan Next Note Type Treatment Note Next Visit Plan Anterior hip precautions and no hip flex >90 deg, WBAT balance; STS LAQ c/ 1-2#, HSC, hip abd samir in sitting c/ band, standing marching w/ band (trial longer lever arm), side steps (add band if able) , trial SLR below 90 deg, leg press for B squat, step up 4, review ankle calf raise/toe raise manual prn for swelling and pain management, soft tissue mobilization
--- NOTE | 2023-10-31 10:45 | PT.OTN ---
Current Diagnoses Unilateral primary osteoarthritis, right hip (10/31/23) Stiffness of right hip, not elsewhere classified (10/31/23) Other lack of coordination (10/31/23) Weakness (10/31/23) Physical Therapy Treatment Note PT-OP-A Visit Information Start: 09/14/23 11:19 Freq: Status: Active Protocol: Document 10/31/23 08:05 AB (Rec: 10/31/23 10:44 AB [id number]) Out-Patient Physical Therapy Visit Information Visit Information Visit Type Treatment Note Visit Note DOS 09/26/23 Access Code [id number] 10/06 for PN due to re eval Visit Start Time 09:48 Visit Stop Time 10:32 Visit Number 9 Number of DISPATCH ASSOCIATE Visits 1 Evaluation Information Evaluation Date 09/14/23 Precautions Precautions Anterior hip precautions (no hip ext, no bridge, no ER), and no hip flex >90 deg DOS 09/26/23 PT-OP-B Current Condition Start: 09/14/23 11:19 Freq: Status: Active Protocol: Document 10/03/23 13:44 NM (Rec: 10/03/23 14:34 NM [id number]) Current Condition History of Current Condition Onset Date DOS 09/26/23 Current Complaints pain, poor mobility, gait, balance History of Current Condition 10/03/23: Pt presents following R [facility] on 09/26/23. Pt reports that she feels really good. She had no complications with surgery. She is still taking pain medications and has a large bruise along her L hip. She presents with spc in L hand. She spent the night in the hospital. Pt able to state hip precautions (no ER, no hip ext). She recently FWW. She has been sleeping upstairs , able to use stairs very well. Has been sleeping both in guest room and in her bed due to transition into bed because has to get into bed on L side. Has been icigin 2-3x/ day, taking acetaminophen/ ibuprofen 4-5x/day. She has follow up with Dr. Almazan next week. She has numbness along the R lateral leg, states getting better. Does not report any signs or symptoms of infection. She has been doing the HEP from hospital every day. 09/14/23: Pt presents with R hip pain. She will surgery in September 25. Planning on an anterior approach. Pt had lumbar surgery in January, which went well. Last visit with Dr. Honeycutt for pain in July, ok to T. Recently finished PT in June. 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 She had a collapsed R arch in the . She reports impairments in standing time, standing straight up, sleeping (wakes her up at night). She has been using 4ww since back surgery, only uses periodically. Plans to get FWW . Pt has 3 steps to enter home , rails on both sides; garage has 3 steps with a handle on the R side. She has 15 steps with rail on R side inside with a bedroom upstairs; she does have a room downstairs where she can sleep but still has to bathe upstairs. She has a bench in the bathtub but also has a shower chair. She lives with her who can physically help her. Treatment Goals Patient/Caregiver Goals gardening (hands and knees or sitting on ground) Prior Functional Status Baseline Function- ADL's Independent Baseline Function- Mobility Modified Independent Baseline Function- Gait ambulation 1 block w/o AD, better w/ 4WW Baseline Function- Recreation/Hobbies sewing, lifting sewing machine , swim 3x/wk Baseline Function- Other hip ER with dressing using clothing to help PT-OP-C Subjective Start: 09/14/23 11:19 Freq: Status: Active Protocol: Document 10/31/23 08:05 AB (Rec: 10/31/23 10:44 AB [id number]) OP-PT Subjective Patient Comments Patient Comments Patient reports the Dr's office said she could bend 90, but she asked for written clarification to be sent to PT . Patient reports she went to the [employer] and did 3 trips with her SPC. Patient comments she hurt her rib, bending over to reach plants. PT-OP-D Balance Start: 09/14/23 11:19 Freq: Status: Active Protocol: Document 10/23/23 08:03 AB (Rec: 10/23/23 13:01 AB [id number]) Case Balance Assessment Evaluation Sitting to Standing Ability Independent w/out Hands Unsupported Stance Safely- 2 minutes Sitting Unsupported, Feet on Floor Safely- 2 minutes Standing to Sitting Ability Safely, Minimal Hand Use Transfer Ability Safely, Minimal Hand Use Unsupported Stance- Eyes Closed Safely, 10 seconds Unsupported Stance- Eyes Open Independent, 1 minute Reaching Forward Standing Safely, 5 inches Pick- Up Object From Floor Requires Assistance Look Behind Shoulder - Standing Shifts Weight Well Turning 360 Degrees Turns Bilateral, < 4 secs Unsupported Stance, Alternating Feet on (I)- 8 Steps in 20 secs Stair Unsupported Tandem Stance Balance Lost- Step/Stand Unilateral Leg Stance Lifts Leg/Unable to Hold Total Score Case Total Score (out of 56 points) 44 Case Impairment Rating 0% Impaired (Score 56) PT-OP-E Functional Tests Start: 09/14/23 11:19 Freq: Status: Active Protocol: Document 10/03/23 13:44 NM (Rec: 10/03/23 14:34 NM [id number]) Functional Tests 6 Minute Walk Test Distance RE: 379 ft, IE: 740 ft Device Used RE: 4ww, IE: 4ww Comments pain w/ ambulation but reduced w/ AD use Five Times Sit to Stand Test Score RE: did not attempt, IE: 28 sec Comments increased time; painful in hip PT-OP-F Manual Assessment Start: 09/14/23 11:19 Freq: Status: Active Protocol: Document 10/03/23 13:44 NM (Rec: 10/03/23 14:34 NM [id number]) Manual Assessments Soft Tissue Assessment Soft Tissue Mobility Assessment Tenderness along lateral hip and along anterior incision, slight tenderness posteriorly Joint Mobility Assessment Joint Mobility Assessment limited AROM of R hip due to precautions PT-OP-G Mobility & Gait Start: 09/14/23 11:19 Freq: Status: Active Protocol: Document 10/03/23 13:44 NM (Rec: 10/03/23 15:52 NM [id number]) OP Mobility Evaluation Bed Mobility Rolling close SBA Supine to and from Sit close SBA Transfers Sit to Stand without AD and minimal hand support from surface, close SBA OP Gait Assessment Gait Gait Assistance Required: Standby Assistance,Contact Guard Assist Assistive Devices Assistive Device Gait Belt,Straight Cane,Front Wheeled Walker Gait Deviations General Gait Pattern Antalgic Comments Gait Comments Limited RLE extension during stance. Demos spc use far to L side, moderately dependent for balance. Transition to FWW , which pt uses step to gait with more normal mechanics and demos better trunk stability PT-OP-H Neuro Start: 09/14/23 11:19 Freq: Status: Active Protocol: Document 10/03/23 13:44 NM (Rec: 10/03/23 14:34 NM [id number]) Sensation Evaluation Comments Summary Comments Decreased along R lateral thigh to mid thigh PT-OP-J Posture/Palpation/Skin Start: 09/14/23 11:19 Freq: Status: Active Protocol: Document 10/03/23 13:44 NM (Rec: 10/03/23 14:34 NM [id number]) Posture Evaluation Position Standing Head/C-Spine Posture Forward Head L-Spine Posture Increased Lordosis Weight Distribution Weight Shifted Left Hip Posture (L) Neutral,(R) Externally Rotated Knee Posture (L) Genu Valgus,(R) Genu Valgus Patellar Posture (L) Superior,(R) Superior Ankle/Foot Posture (L) Pronated,(R) Pronated Comments Posture Comments Demos less fwd flexed trunk posture post op and near equal WB on BLE in stance Palpation Assessment Location R hip Palpation Findings Soft Tissue Tightness, Tenderness Palpation Details 10/03/23: tenderness along anterior and lateral thigh, mild posterior hip tenderness, slight numbness along mid lateral thigh; scar covered by bandage and bruising present along anterior and lateral leg 09/14/23: tenderness to palpation along anterior, medial, and posterior hip muscles, hip joint Skin Assessment Incisional Assessment Incision Appearance/Comments Incision covered by bandage but no redness, drainage or other signs/symptoms of infection or DVT. Slight swelling at R ankle but less proximally PT-OP-K Range of Motion Start: 09/14/23 11:19 Freq: Status: Active Protocol: Document 10/03/23 13:44 NM (Rec: 10/03/23 14:34 NM [id number]) Hip Goniometric Range of Motion Hip Left Flexion w/Knee Flexed 105 Abduction 18 Internal Rotation 35 External Rotation 30 Right Flexion w/Knee Flexed 75 Abduction 5 Comments 09/14/23: 100 deg flex, 10 deg abd, 20 deg IR, 35 deg ER PT-OP-M Strength Start: 09/14/23 11:19 Freq: Status: Active Protocol: Document 10/03/23 13:44 NM (Rec: 10/03/23 14:34 NM [id number]) Hip Strength Hip Manual Muscle Testing Left Flexion (L2) 4+ Good+ Extension (S1) 4+ Good+ Abduction 4+ Good+ Adduction 4+ Good+ External Rotation 4+ Good+ Internal Rotation 4+ Good+ Right Flexion (L2) 3 Fair Abduction 3 Fair Adduction 3 Fair Comments 09/14/23: 4-/5 for all pre-op; pain with IR, flex 10/03/23: Not formally tested at re-evaluation due to precautions; however pt able to perform SLR to bring leg on /off plinth during transfer and heels slides Knee Strength Knee Manual Muscle Testing Left Flexion (S2) 4+ Good+ Extension (L3) 4+ Good+ Right Flexion (S2) 3+ Fair+ Extension (L3) 3+ Fair+ Comments 09/14/23: 4/5 pre-op 10/03/23: 3+/5 post op Ankle/Foot Strength Ankle and Foot Manual Muscle Testing Left Dorsiflexion (L4) 4+ Good+ Plantarflexion (S1) 4+ Good+ Comments 10/03/23, 09/14/23: tested in sitting Right Dorsiflexion (L4) 4+ Good+ Plantarflexion (S1) 4+ Good+ Comments 10/03/23, 09/14/23: tested in sitting PT-OP-Q Treatments Start: 09/14/23 11:19 Freq: Status: Active Protocol: Document 10/31/23 08:05 AB (Rec: 10/31/23 10:44 AB [id number]) Gym Equipment Shuttle Balance WBOS, NBOS Details Red Comments Normal ATILIO and stagger left LE back, CGA, Verbal cues for head turns and visual scanning Therapeutic Exercises Sitting Exercises hip abduction Side bilateral Resistance level 4 band Reps/Minutes 2X 15 and one one minute hold Comments to neutral, hips in greater than 90 deg flexion LAQ Side bilateral Resistance 2# ankle weight Reps/Minutes X15 X 2 Standing Exercises bilateral heel raise Side bilateral step ups Standing Exercise Name 4 inch and (6 inch step to HEP ) Side right Reps/Minutes 15 X X2 Comments monitored for pain X 15 on 4 inch X 15 on 6 inch with UE use heel raises Side bilateral Resistance AROM Equipment Used B hand support for balance Reps/Minutes X 15 and X 3 Comments challenging side steps Standing Exercise Name HEP * level 4 band to HEP Side bilateral Resistance level 4 band above knees Equipment Used with hand support for balance Comments VC to avoid toeing out Neuro Re-Education Treatment Balance Activities uneven surface Details 1. Romberg on air ex 2. marching on blue cushion. SLS Details bilateral Comments SLS with and without visual scanning and head turns hands above rails ending with Romberg position with head turns and visual scanning. PT-OP-T Assessment and Plan Start: 09/14/23 11:19 Freq: Status: Active Protocol: Document 10/31/23 08:05 AB (Rec: 10/31/23 10:44 AB [id number]) Physical Therapy Assessment Assessment Summary Assessment Step up on 6 inch step added to HEP with patient reporting feeling muscle working not pain, ie good stalin to step up. Patient reports pain with heel raise, comments the pain is her normal pain for the foot/ ankle end of session. Physical Therapy Plan Frequency and Duration Frequency of Treatment 2x/Week Duration of treatment (weeks) 12 Plan of Care Start Date 10/03/23 Plan of Care End Date 12/29/23 Next Visit Focus/Plan Next Note Type Treatment Note Next Visit Plan Anterior hip precautions and no hip flex >90 deg, WBAT balance; STS LAQ c/ 1-2#, HSC, hip abd samir in sitting c/ band, standing marching w/ band (trial longer lever arm), trial SLR below 90 deg, leg press for B squat, (assess stalin to HEP step up 4), review ankle calf raise/toe raise manual prn for swelling and pain management, soft tissue mobilization
--- NOTE | 2023-11-02 16:21 | PT-OP ANOTE ---
PT received call from referring surgeon's office to follow up on pt report that she does not have hip flexion precautions. Triage nurse confirmed that pt is ok to drive and does not have any flexion precautions at this time but still has anterior hip precautions. Pt is ok to flex hip. Her next follow up is 11/08/23.
--- NOTE | 2023-11-03 13:22 | PT.OTN ---
Current Diagnoses Unilateral primary osteoarthritis, right hip (11/03/23) Stiffness of right hip, not elsewhere classified (11/03/23) Other lack of coordination (11/03/23) Weakness (11/03/23) Physical Therapy Treatment Note PT-OP-A Visit Information Start: 09/14/23 11:19 Freq: Status: Active Protocol: Document 11/03/23 09:47 NM (Rec: 11/03/23 10:30 NM [id number]) Out-Patient Physical Therapy Visit Information Visit Information Visit Type Progress Note Visit Note DOS 09/26/23 Visit Start Time 09:48 Visit Stop Time 10:28 Visit Number 10 Evaluation Information Evaluation Date 09/14/23 Precautions Precautions Anterior hip precautions (no hip ext, no bridge, no ER) DOS 09/26/23 PT-OP-B Current Condition Start: 09/14/23 11:19 Freq: Status: Active Protocol: Document 10/03/23 13:44 NM (Rec: 10/03/23 14:34 NM [id number]) Current Condition History of Current Condition Onset Date DOS 09/26/23 Current Complaints pain, poor mobility, gait, balance History of Current Condition 10/03/23: Pt presents following R AMADOR on 09/26/23. Pt reports that she feels really good. She had no complications with surgery. She is still taking pain medications and has a large bruise along her L hip. She presents with spc in L hand. She spent the night in the hospital. Pt able to state hip precautions (no ER, no hip ext). She recently FWW. She has been sleeping upstairs , able to use stairs very well. Has been sleeping both in guest room and in her bed due to transition into bed because has to get into bed on L side. Has been icigin 2-3x/ day, taking acetaminophen/ ibuprofen 4-5x/day. She has follow up with Dr. Almazan next week. She has numbness along the R lateral leg, states getting better. Does not report any signs or symptoms of infection. She has been doing the HEP from hospital every day. 09/14/23: Pt presents with R hip pain. She will surgery in September 25. Planning on an anterior approach. Pt had lumbar surgery in January, which went well. Last visit with Dr. Honeycutt for pain in July, ok to T. Recently finished PT in June. 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 She had a collapsed R arch in the . She reports impairments in standing time, standing straight up, sleeping (wakes her up at night). She has been using 4ww since back surgery, only uses periodically. Plans to get FWW . Pt has 3 steps to enter home , rails on both sides; garage has 3 steps with a handle on the R side. She has 15 steps with rail on R side inside with a bedroom upstairs; she does have a room downstairs where she can sleep but still has to bathe upstairs. She has a bench in the bathtub but also has a shower chair. She lives with her who can physically help her. Treatment Goals Patient/Caregiver Goals gardening (hands and knees or sitting on ground) Prior Functional Status Baseline Function- ADL's Independent Baseline Function- Mobility Modified Independent Baseline Function- Gait ambulation 1 block w/o AD, better w/ 4WW Baseline Function- Recreation/Hobbies sewing, lifting sewing machine , swim 3x/wk Baseline Function- Other hip ER with dressing using clothing to help PT-OP-C Subjective Start: 09/14/23 11:19 Freq: Status: Active Protocol: Document 11/03/23 09:47 NM (Rec: 11/03/23 10:30 NM [id number]) OP-PT Subjective Patient Comments Patient Comments Pt reports that she has less discomfort at R lateral hip with walking and stance. She reports generally 1/10 R hip pain, usually just muscle activation not the joint. She reports that she is getting stronger. States that she is using spc for community ambulation only. Has been compliant with HEP. Reports difficulty only with balance, more when in community and with R ankle. PT-OP-D Balance Start: 09/14/23 11:19 Freq: Status: Active Protocol: Document 10/23/23 08:03 AB (Rec: 10/23/23 13:01 AB [id number]) Case Balance Assessment Evaluation Sitting to Standing Ability Independent w/out Hands Unsupported Stance Safely- 2 minutes Sitting Unsupported, Feet on Floor Safely- 2 minutes Standing to Sitting Ability Safely, Minimal Hand Use Transfer Ability Safely, Minimal Hand Use Unsupported Stance- Eyes Closed Safely, 10 seconds Unsupported Stance- Eyes Open Independent, 1 minute Reaching Forward Standing Safely, 5 inches Pick- Up Object From Floor Requires Assistance Look Behind Shoulder - Standing Shifts Weight Well Turning 360 Degrees Turns Bilateral, < 4 secs Unsupported Stance, Alternating Feet on (I)- 8 Steps in 20 secs Stair Unsupported Tandem Stance Balance Lost- Step/Stand Unilateral Leg Stance Lifts Leg/Unable to Hold Total Score Case Total Score (out of 56 points) 44 Case Impairment Rating 0% Impaired (Score 56) PT-OP-E Functional Tests Start: 09/14/23 11:19 Freq: Status: Active Protocol: Document 10/03/23 13:44 NM (Rec: 10/03/23 14:34 NM [id number]) Functional Tests 6 Minute Walk Test Distance RE: 379 ft, IE: 740 ft Device Used RE: 4ww, IE: 4ww Comments pain w/ ambulation but reduced w/ AD use Five Times Sit to Stand Test Score RE: did not attempt, IE: 28 sec Comments increased time; painful in hip PT-OP-F Manual Assessment Start: 09/14/23 11:19 Freq: Status: Active Protocol: Document 10/03/23 13:44 NM (Rec: 10/03/23 14:34 NM [id number]) Manual Assessments Soft Tissue Assessment Soft Tissue Mobility Assessment Tenderness along lateral hip and along anterior incision, slight tenderness posteriorly Joint Mobility Assessment Joint Mobility Assessment limited AROM of R hip due to precautions PT-OP-G Mobility & Gait Start: 09/14/23 11:19 Freq: Status: Active Protocol: Document 10/03/23 13:44 NM (Rec: 10/03/23 15:52 NM [id number]) OP Mobility Evaluation Bed Mobility Rolling close SBA Supine to and from Sit close SBA Transfers Sit to Stand without AD and minimal hand support from surface, close SBA OP Gait Assessment Gait Gait Assistance Required: Standby Assistance,Contact Guard Assist Assistive Devices Assistive Device Gait Belt,Straight Cane,Front Wheeled Walker Gait Deviations General Gait Pattern Antalgic Comments Gait Comments Limited RLE extension during stance. Demos spc use far to L side, moderately dependent for balance. Transition to FWW , which pt uses step to gait with more normal mechanics and demos better trunk stability PT-OP-H Neuro Start: 09/14/23 11:19 Freq: Status: Active Protocol: Document 10/03/23 13:44 NM (Rec: 10/03/23 14:34 NM [id number]) Sensation Evaluation Comments Summary Comments Decreased along R lateral thigh to mid thigh PT-OP-J Posture/Palpation/Skin Start: 09/14/23 11:19 Freq: Status: Active Protocol: Document 10/03/23 13:44 NM (Rec: 10/03/23 14:34 NM [id number]) Posture Evaluation Position Standing Head/C-Spine Posture Forward Head L-Spine Posture Increased Lordosis Weight Distribution Weight Shifted Left Hip Posture (L) Neutral,(R) Externally Rotated Knee Posture (L) Genu Valgus,(R) Genu Valgus Patellar Posture (L) Superior,(R) Superior Ankle/Foot Posture (L) Pronated,(R) Pronated Comments Posture Comments Demos less fwd flexed trunk posture post op and near equal WB on BLE in stance Palpation Assessment Location R hip Palpation Findings Soft Tissue Tightness, Tenderness Palpation Details 10/03/23: tenderness along anterior and lateral thigh, mild posterior hip tenderness, slight numbness along mid lateral thigh; scar covered by bandage and bruising present along anterior and lateral leg 09/14/23: tenderness to palpation along anterior, medial, and posterior hip muscles, hip joint Skin Assessment Incisional Assessment Incision Appearance/Comments Incision covered by bandage but no redness, drainage or other signs/symptoms of infection or DVT. Slight swelling at R ankle but less proximally PT-OP-K Range of Motion Start: 09/14/23 11:19 Freq: Status: Active Protocol: Document 11/03/23 09:47 NM (Rec: 11/03/23 13:16 NM [id number]) Hip Goniometric Range of Motion Hip Right Flexion w/Knee Flexed 100 Abduction 20 Comments 09/14/23: 100 deg flex, 10 deg abd, 20 deg IR, 35 deg ER Re-evaluation: 75 deg flex, 5 deg abduction 11/03/23: 100 deg flex, 20 deg abd PT-OP-M Strength Start: 09/14/23 11:19 Freq: Status: Active Protocol: Document 11/03/23 09:47 NM (Rec: 11/03/23 13:16 NM [id number]) Hip Strength Hip Manual Muscle Testing Right Flexion (L2) 4- Good- Abduction 4- Good- Adduction 3 Fair Comments 09/14/23: 4-/5 for all pre-op; pain with IR, flex 10/03/23: Not formally tested at re-evaluation due to precautions; however pt able to perform SLR to bring leg on /off plinth during transfer and heels slides 11/03/23: 4-/5 for all; hip ext not tested; hip abd tested in sitting PT-OP-Q Treatments Start: 09/14/23 11:19 Freq: Status: Active Protocol: Document 11/03/23 09:47 NM (Rec: 11/03/23 10:30 NM [id number]) Therapeutic Exercises Sitting Exercises STS Sitting Exercise Name 1. 5x STS, 2. STS from standard chair w/ lvl 2 band Side bilateral Reps/Minutes 1. 14.8 sec, 2. 15 Comments pain free; cued to minimize valgus hip abduction Side bilateral Resistance level 3 band Reps/Minutes 1 minute hold Comments prior to balance exercises Standing Exercises bilateral heel raise Standing Exercise Name HEP Side bilateral Equipment Used hand support on rail Reps/Minutes 20 Comments pain free; cued less fwd translation step ups Standing Exercise Name 1. 16 stairs for goal, 2. 6 step up/back Side bilateral Equipment Used 1 rail assist for balance Reps/Minutes 1. 16, 2. 3x10 Comments maintains neutral R hip; pain free ankle dorsiflexion Standing Exercise Name HEP Side bilateral Resistance AROM Equipment Used B hand support, back at wall for balance Reps/Minutes 20 Comments pain free but challenging Neuro Re-Education Treatment Balance Activities uneven surface Details foam pad Surface unstable Equipment hands hovering over // bars, requires increased time, close SBA Comments 1. april, 2x10 ea 2. step up fwd, 10 ea leg 3. narrow stance w/ head turns and head nods, 2 min total cued for control, slower motion SLS Details B Surface hands hovering above rails Comments 1. SLS for time: 8 sec ea leg, 2 sets (added to HEP w/ support) 2. w/ hand turns for visual scanning, 10 turns PT-OP-T Assessment and Plan Start: 09/14/23 11:19 Freq: Status: Active Protocol: Document 11/03/23 09:47 NM (Rec: 11/03/23 10:30 NM [id number]) Physical Therapy Assessment Goals Transfers Impairment pt wants to return to gardening Prison Goal (LTG) If appropriate per precautions , pt will be able to transfer to/from floor in a controlled manner for at least 5 reps in order to be able to return to gardening LTG Duration 12 weeks gait Impairment 6 MWT pre-op 704 ft with 4ww; post op with 379 ft FWW Impairment . Short Term Goal (STG) Pt will demonstrate normal gait mechanics without LRAD for household and short community distances in order to demonstrate return to PLOF and improved balance for gait/ activity tolerance 11/03/23: pt not using spc in home but still using spc in community as needed STG Duration 6 weeks PARTIALLY MET Prison Goal (LTG) Pt will improve 6 MWT distance without LRAD to >1000 ft, if appropriate, in order to demonstrate improved gait mechanics, endurance, and pain management for community participation LTG Duration 12 weeks weakness Impairment R hip strength 4-/5 pre-op, 3/ 5 post-op Impairment . Short Term Goal (STG) Pt will be able to perform 5x STS test in fewer than 15 seconds without increase in R hip pain (pre-op 28 sec) in order to demonstrate improved BLE strength for gait, transfers, and stairs 11/03/23: 4-/5 for all at hip; 14.8 sec w/o pain from standard ht STG Duration 6 weeks MET Research Technician Goal (LTG) Pt will improve R hip strength globally post-operatively to at least 4+/5 MMT in order to demonstrate improved strength for transfers, gait, stairs, and gardening LTG Duration 12 weeks Stairs Impairment has 15 stairs inside home, 3 steps outside home Impairment . Short Term Goal (STG) Pt will be able to perform at least 15 stairs using rails or AD IND post-operatively in order to demonstrate improved household mobility 11/03/23: 16 stairs with 1 rail assist for balance w/o pain STG Duration 4 weeks MET Prison Goal (LTG) Pt will have no limitation with stairs due to R hip pain in order to be able to perform all household stairs and stairs within community LTG Duration 12 weeks Hip ROM Impairment global limitations in hip flex , abd Impairment . Short Term Goal (STG) Pt will improve R hip flexion AROM to at least 95 deg in order to demonstrate improved ROM for swing phase of gait 11/03/23: 100 deg hip flexion; 20 deg hip abduction STG Duration 6 weeks MET Research Technician Goal (LTG) Pt will demonstrate R hip flexion AROM to at least 110 deg in order to be able to garden LTG Duration 12 weeks Progress Towards Goals Progress Towards Goals Progressing Toward Goals Assessment Summary Assessment Pt tolerated session well and demonstrates improved glute strength/quad control with both step up/backs and STS. Able to tolerate increased reps with step ups, improved eccentric lowering while maintaining neutral hip extension. Pt's pain levels are improved since last session. Pt met STGs for stairs and 5x STS. Able to maintain SLS without hand support for 8 sec ea. However, balance on single leg and unstable surface is challenging; catches toe on step ups on foam, no LOB. Physical Therapy Plan Frequency and Duration Frequency of Treatment 2x/Week Duration of treatment (weeks) 12 Plan of Care Start Date 10/03/23 Plan of Care End Date 12/29/23 Therapeutic Interventions Therapeutic Interventions Balance Training,Gait Training ,Home Exercise Program,Joint Mobilizations,Manual Therapy, Neuromuscular Re-education, Orthotic/Prosthetic Management ,Patient/Caregiver Education, Self-Care/Home Management, Sensory Integration,Soft Tissue Mobilization,Taping, Therapeutic Activities, Therapeutic Exercises Modalities Cold Pack/Ice Massage,Electric Stimulation,Hot Packs, Ultrasound Next Visit Focus/Plan Next Note Type Treatment Note Next Visit Plan Anterior hip precautions (no ext or bridging); flexion precaution removed. ask follow up with surgeon on 11/07 Focus on balance w/ SLS, unstable surfaces. Trial lateral step up w/o hip ER 4, leg press balance; STS LAQ c/ 1-2#, HSC, hip abd samir in sitting c/ band, standing marching w/ band (trial longer lever arm), trial SLR below 90 deg, leg press for B squat, manual prn for swelling and pain management, soft tissue mobilization
--- NOTE | 2023-11-06 15:04 | PT.OTN ---
Current Diagnoses Unilateral primary osteoarthritis, right hip (11/06/23) Stiffness of right hip, not elsewhere classified (11/06/23) Other lack of coordination (11/06/23) Weakness (11/06/23) Physical Therapy Treatment Note PT-OP-A Visit Information Start: 09/14/23 11:19 Freq: Status: Active Protocol: Document 11/06/23 08:14 AB (Rec: 11/06/23 09:49 AB [id number]) Out-Patient Physical Therapy Visit Information Visit Information Visit Type Progress Note Visit Note DOS 09/26/23 Access Code [id number] Visit Start Time 09:03 Visit Stop Time 09:47 Visit Number 11 Number of SHIPFITTER Visits 1 Evaluation Information Evaluation Date 09/14/23 Precautions Precautions Anterior hip precautions (no hip ext, no bridge, no ER) DOS 09/26/23 PT-OP-B Current Condition Start: 09/14/23 11:19 Freq: Status: Active Protocol: Document 10/03/23 13:44 NM (Rec: 10/03/23 14:34 NM [id number]) Current Condition History of Current Condition Onset Date DOS 09/26/23 Current Complaints pain, poor mobility, gait, balance History of Current Condition 10/03/23: Pt presents following R AMADOR on 09/26/23. Pt reports that she feels really good. She had no complications with surgery. She is still taking pain medications and has a large bruise along her L hip. She presents with spc in L hand. She spent the night in the hospital. Pt able to state hip precautions (no ER, no hip ext). She recently FWW. She has been sleeping upstairs , able to use stairs very well. Has been sleeping both in guest room and in her bed due to transition into bed because has to get into bed on L side. Has been icigin 2-3x/ day, taking acetaminophen/ ibuprofen 4-5x/day. She has follow up with Dr. Almazan next week. She has numbness along the R lateral leg, states getting better. Does not report any signs or symptoms of infection. She has been doing the HEP from hospital every day. 09/14/23: Pt presents with R hip pain. She will surgery in September 25. Planning on an anterior approach. Pt had lumbar surgery in January, which went well. Last visit with Dr. Yinka for pain in July, ok to BLT. Recently finished PT in June. 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 She had a collapsed R arch in the . She reports impairments in standing time, standing straight up, sleeping (wakes her up at night). She has been using 4ww since back surgery, only uses periodically. Plans to get FWW . Pt has 3 steps to enter home , rails on both sides; garage has 3 steps with a handle on the R side. She has 15 steps with rail on R side inside with a bedroom upstairs; she does have a room downstairs where she can sleep but still has to bathe upstairs. She has a bench in the bathtub but also has a shower chair. She lives with her who can physically help her. Treatment Goals Patient/Caregiver Goals gardening (hands and knees or sitting on ground) Prior Functional Status Baseline Function- ADL's Independent Baseline Function- Mobility Modified Independent Baseline Function- Gait ambulation 1 block w/o AD, better w/ 4WW Baseline Function- Recreation/Hobbies sewing, lifting sewing machine , swim 3x/wk Baseline Function- Other hip ER with dressing using clothing to help PT-OP-C Subjective Start: 09/14/23 11:19 Freq: Status: Active Protocol: Document 11/06/23 08:14 AB (Rec: 11/06/23 09:49 AB [id number]) OP-PT Subjective Patient Comments Patient Comments Patient reports she felt very able over the weekend, was able to walk on a trail at [facility] without pain. Patient rates pain 1/10 start of session. Patient reports she did all her exercises yesterday, took a walk around the block, went up and down the stairs 4-5X. PT-OP-D Balance Start: 09/14/23 11:19 Freq: Status: Active Protocol: Document 10/23/23 08:03 AB (Rec: 10/23/23 13:01 AB [id number]) Case Balance Assessment Evaluation Sitting to Standing Ability Independent w/out Hands Unsupported Stance Safely- 2 minutes Sitting Unsupported, Feet on Floor Safely- 2 minutes Standing to Sitting Ability Safely, Minimal Hand Use Transfer Ability Safely, Minimal Hand Use Unsupported Stance- Eyes Closed Safely, 10 seconds Unsupported Stance- Eyes Open Independent, 1 minute Reaching Forward Standing Safely, 5 inches Pick- Up Object From Floor Requires Assistance Look Behind Shoulder - Standing Shifts Weight Well Turning 360 Degrees Turns Bilateral, < 4 secs Unsupported Stance, Alternating Feet on (I)- 8 Steps in 20 secs Stair Unsupported Tandem Stance Balance Lost- Step/Stand Unilateral Leg Stance Lifts Leg/Unable to Hold Total Score Case Total Score (out of 56 points) 44 Case Impairment Rating 0% Impaired (Score 56) PT-OP-E Functional Tests Start: 09/14/23 11:19 Freq: Status: Active Protocol: Document 10/03/23 13:44 NM (Rec: 10/03/23 14:34 NM [id number]) Functional Tests 6 Minute Walk Test Distance RE: 379 ft, IE: 740 ft Device Used RE: 4ww, IE: 4ww Comments pain w/ ambulation but reduced w/ AD use Five Times Sit to Stand Test Score RE: did not attempt, IE: 28 sec Comments increased time; painful in hip PT-OP-F Manual Assessment Start: 09/14/23 11:19 Freq: Status: Active Protocol: Document 10/03/23 13:44 NM (Rec: 10/03/23 14:34 NM [id number]) Manual Assessments Soft Tissue Assessment Soft Tissue Mobility Assessment Tenderness along lateral hip and along anterior incision, slight tenderness posteriorly Joint Mobility Assessment Joint Mobility Assessment limited AROM of R hip due to precautions PT-OP-G Mobility & Gait Start: 09/14/23 11:19 Freq: Status: Active Protocol: Document 10/03/23 13:44 NM (Rec: 10/03/23 15:52 NM [id number]) OP Mobility Evaluation Bed Mobility Rolling close SBA Supine to and from Sit close SBA Transfers Sit to Stand without AD and minimal hand support from surface, close SBA OP Gait Assessment Gait Gait Assistance Required: Standby Assistance,Contact Guard Assist Assistive Devices Assistive Device Gait Belt,Straight Cane,Front Wheeled Walker Gait Deviations General Gait Pattern Antalgic Comments Gait Comments Limited RLE extension during stance. Demos spc use far to L side, moderately dependent for balance. Transition to FWW , which pt uses step to gait with more normal mechanics and demos better trunk stability PT-OP-H Neuro Start: 09/14/23 11:19 Freq: Status: Active Protocol: Document 10/03/23 13:44 NM (Rec: 10/03/23 14:34 NM [id number]) Sensation Evaluation Comments Summary Comments Decreased along R lateral thigh to mid thigh PT-OP-J Posture/Palpation/Skin Start: 09/14/23 11:19 Freq: Status: Active Protocol: Document 10/03/23 13:44 NM (Rec: 10/03/23 14:34 NM [id number]) Posture Evaluation Position Standing Head/C-Spine Posture Forward Head L-Spine Posture Increased Lordosis Weight Distribution Weight Shifted Left Hip Posture (L) Neutral,(R) Externally Rotated Knee Posture (L) Genu Valgus,(R) Genu Valgus Patellar Posture (L) Superior,(R) Superior Ankle/Foot Posture (L) Pronated,(R) Pronated Comments Posture Comments Demos less fwd flexed trunk posture post op and near equal WB on BLE in stance Palpation Assessment Location R hip Palpation Findings Soft Tissue Tightness, Tenderness Palpation Details 10/03/23: tenderness along anterior and lateral thigh, mild posterior hip tenderness, slight numbness along mid lateral thigh; scar covered by bandage and bruising present along anterior and lateral leg 09/14/23: tenderness to palpation along anterior, medial, and posterior hip muscles, hip joint Skin Assessment Incisional Assessment Incision Appearance/Comments Incision covered by bandage but no redness, drainage or other signs/symptoms of infection or DVT. Slight swelling at R ankle but less proximally PT-OP-K Range of Motion Start: 09/14/23 11:19 Freq: Status: Active Protocol: Document 11/03/23 09:47 NM (Rec: 11/03/23 13:16 NM [id number]) Hip Goniometric Range of Motion Hip Right Flexion w/Knee Flexed 100 Abduction 20 Comments 09/14/23: 100 deg flex, 10 deg abd, 20 deg IR, 35 deg ER Re-evaluation: 75 deg flex, 5 deg abduction 11/03/23: 100 deg flex, 20 deg abd PT-OP-M Strength Start: 09/14/23 11:19 Freq: Status: Active Protocol: Document 11/03/23 09:47 NM (Rec: 11/03/23 13:16 NM [id number]) Hip Strength Hip Manual Muscle Testing Right Flexion (L2) 4- Good- Abduction 4- Good- Adduction 3 Fair Comments 09/14/23: 4-/5 for all pre-op; pain with IR, flex 10/03/23: Not formally tested at re-evaluation due to precautions; however pt able to perform SLR to bring leg on /off plinth during transfer and heels slides 11/03/23: 4-/5 for all; hip ext not tested; hip abd tested in sitting PT-OP-Q Treatments Start: 09/14/23 11:19 Freq: Status: Active Protocol: Document 11/06/23 08:14 AB (Rec: 11/06/23 09:49 AB [id number]) Gym Equipment Shuttle Recovery Unilateral Squats Resistance 50# Shuttle Recovery Platform Stable Reps/Time 15 Bilateral Squats Details B squats Resistance 75# (3 navy) Shuttle Recovery Platform Stable Reps/Time 15x2 Shuttle Balance WBOS, NBOS Details Red Comments CGA, with visual scanning and head turns Therapeutic Exercises Sitting Exercises hip abduction Side bilateral Resistance level 5 band Reps/Minutes 1 minute hold and 15X 2 without hold Comments prior to balance exercises LAQ Side bilateral Resistance 2# ankle weight Reps/Minutes X15 X 2 Manual Therapy Treatment Soft Tissue Mobilization R hip Body Location scar tissue Mobilization Type Cross-Friction,Rolling Intensity/Depth Superficial Body Position Hooklying Comments to moderate Neuro Re-Education Treatment Balance Activities SLS Details B Surface hands hovering above rails Comments on air ex PT-OP-T Assessment and Plan Start: 09/14/23 11:19 Freq: Status: Active Protocol: Document 11/06/23 08:14 AB (Rec: 11/06/23 09:49 AB [id number]) Physical Therapy Assessment Goals Transfers Impairment pt wants to return to gardening [facility] Goal (LTG) If appropriate per precautions , pt will be able to transfer to/from floor in a controlled manner for at least 5 reps in order to be able to return to gardening LTG Duration 12 weeks gait Impairment 6 MWT pre-op 704 ft with 4ww; post op with 379 ft FWW Impairment . Short Term Goal (STG) Pt will demonstrate normal gait mechanics without LRAD for household and short community distances in order to demonstrate return to PLOF and improved balance for gait/ activity tolerance 11/03/23: pt not using spc in home but still using spc in community as needed STG Duration 6 weeks PARTIALLY MET Fireperson Goal (LTG) Pt will improve 6 MWT distance without LRAD to >1000 ft, if appropriate, in order to demonstrate improved gait mechanics, endurance, and pain management for community participation LTG Duration 12 weeks weakness Impairment R hip strength 4-/5 pre-op, 3/ 5 post-op Impairment . Short Term Goal (STG) Pt will be able to perform 5x STS test in fewer than 15 seconds without increase in R hip pain (pre-op 28 sec) in order to demonstrate improved BLE strength for gait, transfers, and stairs 11/03/23: 4-/5 for all at hip; 14.8 sec w/o pain from standard ht STG Duration 6 weeks MET [employer] Goal (LTG) Pt will improve R hip strength globally post-operatively to at least 4+/5 MMT in order to demonstrate improved strength for transfers, gait, stairs, and gardening LTG Duration 12 weeks Stairs Impairment has 15 stairs inside home, 3 steps outside home Impairment . Short Term Goal (STG) Pt will be able to perform at least 15 stairs using rails or AD IND post-operatively in order to demonstrate improved household mobility 11/03/23: 16 stairs with 1 rail assist for balance w/o pain STG Duration 4 weeks MET [employer] Goal (LTG) Pt will have no limitation with stairs due to R hip pain in order to be able to perform all household stairs and stairs within community LTG Duration 12 weeks Hip ROM Impairment global limitations in hip flex , abd Impairment . Short Term Goal (STG) Pt will improve R hip flexion AROM to at least 95 deg in order to demonstrate improved ROM for swing phase of gait 11/03/23: 100 deg hip flexion; 20 deg hip abduction STG Duration 6 weeks MET [facility] Goal (LTG) Pt will demonstrate R hip flexion AROM to at least 110 deg in order to be able to garden LTG Duration 12 weeks Assessment Summary Assessment Harleen reports having no pain end of session. Good tolerance to leg press. Physical Therapy Plan Frequency and Duration Frequency of Treatment 2x/Week Duration of treatment (weeks) 12 Plan of Care Start Date 10/03/23 Plan of Care End Date 12/29/23 Next Visit Focus/Plan Next Note Type Treatment Note Next Visit Plan Anterior hip precautions (no ext or bridging); flexion precaution removed. ask follow up with surgeon on 11/07 Focus on balance w/ SLS, unstable surfaces. Trial lateral step up w/o hip ER 4, leg press balance; STS LAQ c/ 1-2#, HSC, hip abd samir in sitting c/ band, standing marching w/ band (trial longer lever arm), trial SLR below 90 deg, leg press for B squat, manual prn for swelling and pain management, soft tissue mobilization
--- NOTE | 2023-11-09 11:06 | PT.OTN ---
Current Diagnoses Unilateral primary osteoarthritis, right hip (11/09/23) Stiffness of right hip, not elsewhere classified (11/09/23) Other lack of coordination (11/09/23) Weakness (11/09/23) Physical Therapy Treatment Note PT-OP-A Visit Information Start: 09/14/23 11:19 Freq: Status: Active Protocol: Document 11/09/23 08:10 AB (Rec: 11/09/23 09:02 AB [id number]) Out-Patient Physical Therapy Visit Information Visit Information Visit Type Treatment Note Visit Note DOS 09/26/23 Access Code [id number] Visit Start Time 08:17 Visit Stop Time 09:00 Visit Number 12 Number of [employer] Visits 2 Evaluation Information Evaluation Date 09/14/23 Precautions Precautions No more precautions post MD appointment 11/08/23 per patient DOS 09/26/23 PT-OP-B Current Condition Start: 09/14/23 11:19 Freq: Status: Active Protocol: Document 10/03/23 13:44 NM (Rec: 10/03/23 14:34 NM [id number]) Current Condition History of Current Condition Onset Date DOS 09/26/23 Current Complaints pain, poor mobility, gait, balance History of Current Condition 10/03/23: Pt presents following R [facility] on 09/26/23. Pt reports that she feels really good. She had no complications with surgery. She is still taking pain medications and has a large bruise along her L hip. She presents with spc in L hand. She spent the night in the hospital. Pt able to state hip precautions (no ER, no hip ext). She recently FWW. She has been sleeping upstairs , able to use stairs very well. Has been sleeping both in guest room and in her bed due to transition into bed because has to get into bed on L side. Has been icigin 2-3x/ day, taking acetaminophen/ ibuprofen 4-5x/day. She has follow up with Dr. Almazan next week. She has numbness along the R lateral leg, states getting better. Does not report any signs or symptoms of infection. She has been doing the HEP from hospital every day. 09/14/23: Pt presents with R hip pain. She will surgery in September 25. Planning on an anterior approach. Pt had lumbar surgery in January, which went well. Last visit with Dr. Yinka for pain in July, ok to BLT. Recently finished PT in June. 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 She had a collapsed R arch in the . She reports impairments in standing time, standing straight up, sleeping (wakes her up at night). She has been using 4ww since back surgery, only uses periodically. Plans to get FWW . Pt has 3 steps to enter home , rails on both sides; garage has 3 steps with a handle on the R side. She has 15 steps with rail on R side inside with a bedroom upstairs; she does have a room downstairs where she can sleep but still has to bathe upstairs. She has a bench in the bathtub but also has a shower chair. She lives with her who can physically help her. Treatment Goals Patient/Caregiver Goals gardening (hands and knees or sitting on ground) Prior Functional Status Baseline Function- ADL's Independent Baseline Function- Mobility Modified Independent Baseline Function- Gait ambulation 1 block w/o AD, better w/ 4WW Baseline Function- Recreation/Hobbies sewing, lifting sewing machine , swim 3x/wk Baseline Function- Other hip ER with dressing using clothing to help PT-OP-C Subjective Start: 09/14/23 11:19 Freq: Status: Active Protocol: Document 11/09/23 08:10 AB (Rec: 11/09/23 09:02 AB [id number]) OP-PT Subjective Patient Comments Patient Comments Patient reports MD said no more precautions, able to return to pool, to walk. Patient reports MD also said to be careful referring to walking. Patient reports having no pain end of session. 3 sec 4 sec SLS right LE without UE use PT-OP-D Balance Start: 09/14/23 11:19 Freq: Status: Active Protocol: Document 10/23/23 08:03 AB (Rec: 10/23/23 13:01 AB [id number]) Case Balance Assessment Evaluation Sitting to Standing Ability Independent w/out Hands Unsupported Stance Safely- 2 minutes Sitting Unsupported, Feet on Floor Safely- 2 minutes Standing to Sitting Ability Safely, Minimal Hand Use Transfer Ability Safely, Minimal Hand Use Unsupported Stance- Eyes Closed Safely, 10 seconds Unsupported Stance- Eyes Open Independent, 1 minute Reaching Forward Standing Safely, 5 inches Pick- Up Object From Floor Requires Assistance Look Behind Shoulder - Standing Shifts Weight Well Turning 360 Degrees Turns Bilateral, < 4 secs Unsupported Stance, Alternating Feet on (I)- 8 Steps in 20 secs Stair Unsupported Tandem Stance Balance Lost- Step/Stand Unilateral Leg Stance Lifts Leg/Unable to Hold Total Score Case Total Score (out of 56 points) 44 Case Impairment Rating 0% Impaired (Score 56) PT-OP-E Functional Tests Start: 09/14/23 11:19 Freq: Status: Active Protocol: Document 10/03/23 13:44 NM (Rec: 10/03/23 14:34 NM [id number]) Functional Tests 6 Minute Walk Test Distance RE: 379 ft, IE: 740 ft Device Used RE: 4ww, IE: 4ww Comments pain w/ ambulation but reduced w/ AD use Five Times Sit to Stand Test Score RE: did not attempt, IE: 28 sec Comments increased time; painful in hip PT-OP-F Manual Assessment Start: 09/14/23 11:19 Freq: Status: Active Protocol: Document 10/03/23 13:44 NM (Rec: 10/03/23 14:34 NM [id number]) Manual Assessments Soft Tissue Assessment Soft Tissue Mobility Assessment Tenderness along lateral hip and along anterior incision, slight tenderness posteriorly Joint Mobility Assessment Joint Mobility Assessment limited AROM of R hip due to precautions PT-OP-G Mobility & Gait Start: 09/14/23 11:19 Freq: Status: Active Protocol: Document 10/03/23 13:44 NM (Rec: 10/03/23 15:52 NM [id number]) OP Mobility Evaluation Bed Mobility Rolling close SBA Supine to and from Sit close SBA Transfers Sit to Stand without AD and minimal hand support from surface, close SBA OP Gait Assessment Gait Gait Assistance Required: Standby Assistance,Contact Guard Assist Assistive Devices Assistive Device Gait Belt,Straight Cane,Front Wheeled Walker Gait Deviations General Gait Pattern Antalgic Comments Gait Comments Limited RLE extension during stance. Demos spc use far to L side, moderately dependent for balance. Transition to FWW , which pt uses step to gait with more normal mechanics and demos better trunk stability PT-OP-H Neuro Start: 09/14/23 11:19 Freq: Status: Active Protocol: Document 10/03/23 13:44 NM (Rec: 10/03/23 14:34 NM [id number]) Sensation Evaluation Comments Summary Comments Decreased along R lateral thigh to mid thigh PT-OP-J Posture/Palpation/Skin Start: 09/14/23 11:19 Freq: Status: Active Protocol: Document 10/03/23 13:44 NM (Rec: 10/03/23 14:34 NM [id number]) Posture Evaluation Position Standing Head/C-Spine Posture Forward Head L-Spine Posture Increased Lordosis Weight Distribution Weight Shifted Left Hip Posture (L) Neutral,(R) Externally Rotated Knee Posture (L) Genu Valgus,(R) Genu Valgus Patellar Posture (L) Superior,(R) Superior Ankle/Foot Posture (L) Pronated,(R) Pronated Comments Posture Comments Demos less fwd flexed trunk posture post op and near equal WB on BLE in stance Palpation Assessment Location R hip Palpation Findings Soft Tissue Tightness, Tenderness Palpation Details 10/03/23: tenderness along anterior and lateral thigh, mild posterior hip tenderness, slight numbness along mid lateral thigh; scar covered by bandage and bruising present along anterior and lateral leg 09/14/23: tenderness to palpation along anterior, medial, and posterior hip muscles, hip joint Skin Assessment Incisional Assessment Incision Appearance/Comments Incision covered by bandage but no redness, drainage or other signs/symptoms of infection or DVT. Slight swelling at R ankle but less proximally PT-OP-K Range of Motion Start: 09/14/23 11:19 Freq: Status: Active Protocol: Document 11/03/23 09:47 NM (Rec: 11/03/23 13:16 NM [id number]) Hip Goniometric Range of Motion Hip Right Flexion w/Knee Flexed 100 Abduction 20 Comments 09/14/23: 100 deg flex, 10 deg abd, 20 deg IR, 35 deg ER Re-evaluation: 75 deg flex, 5 deg abduction 11/03/23: 100 deg flex, 20 deg abd PT-OP-M Strength Start: 09/14/23 11:19 Freq: Status: Active Protocol: Document 11/03/23 09:47 NM (Rec: 11/03/23 13:16 NM [id number]) Hip Strength Hip Manual Muscle Testing Right Flexion (L2) 4- Good- Abduction 4- Good- Adduction 3 Fair Comments 09/14/23: 4-/5 for all pre-op; pain with IR, flex 10/03/23: Not formally tested at re-evaluation due to precautions; however pt able to perform SLR to bring leg on /off plinth during transfer and heels slides 11/03/23: 4-/5 for all; hip ext not tested; hip abd tested in sitting PT-OP-Q Treatments Start: 09/14/23 11:19 Freq: Status: Active Protocol: Document 11/09/23 08:10 AB (Rec: 11/09/23 09:02 AB [id number]) Gym Equipment Shuttle Recovery Unilateral Squats Resistance 50# (to 37# to 25 # for right) Shuttle Recovery Platform Stable Reps/Time 15 X 2 left X 15 then X 5 X 3 and X 15 with 25 # Bilateral Squats Details B squats Resistance 75# (3 navy) Shuttle Recovery Platform Stable Reps/Time 15x2 Shuttle Balance WBOS, NBOS Details Red, also stagger stance and mini squat X10 w/o head turns and scanning Comments CGA, with visual scanning and head turns Therapeutic Exercises Sitting Exercises sit to stand with band Side bilateral Resistance level 5 band Reps/Minutes 15 X 2 Comments unsteady on first rep, VC for hip hinge hip abduction Side bilateral Resistance level 5 band Reps/Minutes 1 minute hold and 15X 2 without hold Comments prior to balance exercises Neuro Re-Education Treatment Balance Activities tandem stepping Reps/Duration 12 feet X 6 Comments CGA hand above bar step up taps Details 1. 6 inch step 2. standing on foam 6 inch step tap Reps/Duration X10 each Comments CGA hand above bar hurdles Reps/Duration 12 feet X 6 Comments CGA hand above bar PT-OP-T Assessment and Plan Start: 09/14/23 11:19 Freq: Status: Active Protocol: Document 11/09/23 08:10 AB (Rec: 11/09/23 09:02 AB [id number]) Physical Therapy Assessment Goals Transfers Impairment pt wants to return to gardening [employer] Goal (LTG) If appropriate per precautions , pt will be able to transfer to/from floor in a controlled manner for at least 5 reps in order to be able to return to gardening LTG Duration 12 weeks gait Impairment 6 MWT pre-op 704 ft with 4ww; post op with 379 ft FWW Impairment . Short Term Goal (STG) Pt will demonstrate normal gait mechanics without LRAD for household and short community distances in order to demonstrate return to PLOF and improved balance for gait/ activity tolerance 11/03/23: pt not using spc in home but still using spc in community as needed STG Duration 6 weeks PARTIALLY MET [employer] Goal (LTG) Pt will improve 6 MWT distance without LRAD to >1000 ft, if appropriate, in order to demonstrate improved gait mechanics, endurance, and pain management for community participation LTG Duration 12 weeks weakness Impairment R hip strength 4-/5 pre-op, 3/ 5 post-op Impairment . Short Term Goal (STG) Pt will be able to perform 5x STS test in fewer than 15 seconds without increase in R hip pain (pre-op 28 sec) in order to demonstrate improved BLE strength for gait, transfers, and stairs 11/03/23: 4-/5 for all at hip; 14.8 sec w/o pain from standard ht STG Duration 6 weeks MET [facility] Goal (LTG) Pt will improve R hip strength globally post-operatively to at least 4+/5 MMT in order to demonstrate improved strength for transfers, gait, stairs, and gardening LTG Duration 12 weeks Stairs Impairment has 15 stairs inside home, 3 steps outside home Impairment . Short Term Goal (STG) Pt will be able to perform at least 15 stairs using rails or AD IND post-operatively in order to demonstrate improved household mobility 11/03/23: 16 stairs with 1 rail assist for balance w/o pain STG Duration 4 weeks MET [facility] Goal (LTG) Pt will have no limitation with stairs due to R hip pain in order to be able to perform all household stairs and stairs within community LTG Duration 12 weeks Hip ROM Impairment global limitations in hip flex , abd Impairment . Short Term Goal (STG) Pt will improve R hip flexion AROM to at least 95 deg in order to demonstrate improved ROM for swing phase of gait 11/03/23: 100 deg hip flexion; 20 deg hip abduction STG Duration 6 weeks MET [facility] Goal (LTG) Pt will demonstrate R hip flexion AROM to at least 110 deg in order to be able to garden LTG Duration 12 weeks Assessment Summary Assessment Harleen reports having only muscle pain end of session, comments feeling like she worked. Physical Therapy Plan Frequency and Duration Frequency of Treatment 2x/Week Duration of treatment (weeks) 12 Plan of Care Start Date 10/03/23 Plan of Care End Date 12/29/23 Next Visit Focus/Plan Next Note Type Treatment Note Next Visit Plan Focus on balance w/ SLS, unstable surfaces. 4, leg press balance; STS LAQ c/ 1-2#, HSC, hip abd samir in sitting c/ band, standing marching w/ band (trial longer lever arm), trial SLR below 90 deg, leg press for B squat, manual prn for swelling and pain management, soft tissue mobilization
--- NOTE | 2023-11-14 08:59 | PT.OTN ---
Current Diagnoses Unilateral primary osteoarthritis, right hip (11/14/23) Stiffness of right hip, not elsewhere classified (11/14/23) Other lack of coordination (11/14/23) Weakness (11/14/23) Physical Therapy Treatment Note PT-OP-A Visit Information Start: 09/14/23 11:19 Freq: Status: Active Protocol: Document 11/14/23 08:19 NM (Rec: 11/14/23 08:59 NM [id number]) Out-Patient Physical Therapy Visit Information Visit Information Visit Type Treatment Note Visit Note DOS 09/26/23 Visit Start Time 08:19 Visit Stop Time 08:59 Visit Number 13 Evaluation Information Evaluation Date 09/14/23 Precautions Precautions No more precautions post MD appointment 11/08/23 per patient DOS 09/26/23 PT-OP-B Current Condition Start: 09/14/23 11:19 Freq: Status: Active Protocol: Document 10/03/23 13:44 NM (Rec: 10/03/23 14:34 NM [id number]) Current Condition History of Current Condition Onset Date DOS 09/26/23 Current Complaints pain, poor mobility, gait, balance History of Current Condition 10/03/23: Pt presents following R [facility]ADOR on 09/26/23. Pt reports that she feels really good. She had no complications with surgery. She is still taking pain medications and has a large bruise along her L hip. She presents with spc in L hand. She spent the night in the hospital. Pt able to state hip precautions (no ER, no hip ext). She recently FWW. She has been sleeping upstairs , able to use stairs very well. Has been sleeping both in guest room and in her bed due to transition into bed because has to get into bed on L side. Has been icigin 2-3x/ day, taking acetaminophen/ ibuprofen 4-5x/day. She has follow up with Dr. Almazan next week. She has numbness along the R lateral leg, states getting better. Does not report any signs or symptoms of infection. She has been doing the HEP from hospital every day. 09/14/23: Pt presents with R hip pain. She will surgery in September 25. Planning on an anterior approach. Pt had lumbar surgery in January, which went well. Last visit with Dr. Honeycutt for pain in July, ok to T. Recently finished PT in June. 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 She had a collapsed R arch in the . She reports impairments in standing time, standing straight up, sleeping (wakes her up at night). She has been using 4ww since back surgery, only uses periodically. Plans to get FWW . Pt has 3 steps to enter home , rails on both sides; garage has 3 steps with a handle on the R side. She has 15 steps with rail on R side inside with a bedroom upstairs; she does have a room downstairs where she can sleep but still has to bathe upstairs. She has a bench in the bathtub but also has a shower chair. She lives with her who can physically help her. Treatment Goals Patient/Caregiver Goals gardening (hands and knees or sitting on ground) Prior Functional Status Baseline Function- ADL's Independent Baseline Function- Mobility Modified Independent Baseline Function- Gait ambulation 1 block w/o AD, better w/ 4WW Baseline Function- Recreation/Hobbies sewing, lifting sewing machine , swim 3x/wk Baseline Function- Other hip ER with dressing using clothing to help PT-OP-C Subjective Start: 09/14/23 11:19 Freq: Status: Active Protocol: Document 11/14/23 08:19 NM (Rec: 11/14/23 08:59 NM [id number]) OP-PT Subjective Patient Comments Patient Comments Pt presents without spc. She reports minimal pain in R hip. States that R glute still very tight; however, states adductor is still tight, denies groin pain and lateral hip pain. Reports that she went to the pool twice, did walking amd marching. PT-OP-D Balance Start: 09/14/23 11:19 Freq: Status: Active Protocol: Document 10/23/23 08:03 AB (Rec: 10/23/23 13:01 AB [id number]) Case Balance Assessment Evaluation Sitting to Standing Ability Independent w/out Hands Unsupported Stance Safely- 2 minutes Sitting Unsupported, Feet on Floor Safely- 2 minutes Standing to Sitting Ability Safely, Minimal Hand Use Transfer Ability Safely, Minimal Hand Use Unsupported Stance- Eyes Closed Safely, 10 seconds Unsupported Stance- Eyes Open Independent, 1 minute Reaching Forward Standing Safely, 5 inches Pick- Up Object From Floor Requires Assistance Look Behind Shoulder - Standing Shifts Weight Well Turning 360 Degrees Turns Bilateral, < 4 secs Unsupported Stance, Alternating Feet on (I)- 8 Steps in 20 secs Stair Unsupported Tandem Stance Balance Lost- Step/Stand Unilateral Leg Stance Lifts Leg/Unable to Hold Total Score Case Total Score (out of 56 points) 44 Case Impairment Rating 0% Impaired (Score 56) PT-OP-E Functional Tests Start: 09/14/23 11:19 Freq: Status: Active Protocol: Document 10/03/23 13:44 NM (Rec: 10/03/23 14:34 NM [id number]) Functional Tests 6 Minute Walk Test Distance RE: 379 ft, IE: 740 ft Device Used RE: 4ww, IE: 4ww Comments pain w/ ambulation but reduced w/ AD use Five Times Sit to Stand Test Score RE: did not attempt, IE: 28 sec Comments increased time; painful in hip PT-OP-F Manual Assessment Start: 09/14/23 11:19 Freq: Status: Active Protocol: Document 10/03/23 13:44 NM (Rec: 10/03/23 14:34 NM [id number]) Manual Assessments Soft Tissue Assessment Soft Tissue Mobility Assessment Tenderness along lateral hip and along anterior incision, slight tenderness posteriorly Joint Mobility Assessment Joint Mobility Assessment limited AROM of R hip due to precautions PT-OP-G Mobility & Gait Start: 09/14/23 11:19 Freq: Status: Active Protocol: Document 10/03/23 13:44 NM (Rec: 10/03/23 15:52 NM [id number]) OP Mobility Evaluation Bed Mobility Rolling close SBA Supine to and from Sit close SBA Transfers Sit to Stand without AD and minimal hand support from surface, close SBA OP Gait Assessment Gait Gait Assistance Required: Standby Assistance,Contact Guard Assist Assistive Devices Assistive Device Gait Belt,Straight Cane,Front Wheeled Walker Gait Deviations General Gait Pattern Antalgic Comments Gait Comments Limited RLE extension during stance. Demos spc use far to L side, moderately dependent for balance. Transition to FWW , which pt uses step to gait with more normal mechanics and demos better trunk stability PT-OP-H Neuro Start: 09/14/23 11:19 Freq: Status: Active Protocol: Document 10/03/23 13:44 NM (Rec: 10/03/23 14:34 NM [id number]) Sensation Evaluation Comments Summary Comments Decreased along R lateral thigh to mid thigh PT-OP-J Posture/Palpation/Skin Start: 09/14/23 11:19 Freq: Status: Active Protocol: Document 10/03/23 13:44 NM (Rec: 10/03/23 14:34 NM [id number]) Posture Evaluation Position Standing Head/C-Spine Posture Forward Head L-Spine Posture Increased Lordosis Weight Distribution Weight Shifted Left Hip Posture (L) Neutral,(R) Externally Rotated Knee Posture (L) Genu Valgus,(R) Genu Valgus Patellar Posture (L) Superior,(R) Superior Ankle/Foot Posture (L) Pronated,(R) Pronated Comments Posture Comments Demos less fwd flexed trunk posture post op and near equal WB on BLE in stance Palpation Assessment Location R hip Palpation Findings Soft Tissue Tightness, Tenderness Palpation Details 10/03/23: tenderness along anterior and lateral thigh, mild posterior hip tenderness, slight numbness along mid lateral thigh; scar covered by bandage and bruising present along anterior and lateral leg 09/14/23: tenderness to palpation along anterior, medial, and posterior hip muscles, hip joint Skin Assessment Incisional Assessment Incision Appearance/Comments Incision covered by bandage but no redness, drainage or other signs/symptoms of infection or DVT. Slight swelling at R ankle but less proximally PT-OP-K Range of Motion Start: 09/14/23 11:19 Freq: Status: Active Protocol: Document 11/03/23 09:47 NM (Rec: 11/03/23 13:16 NM [id number]) Hip Goniometric Range of Motion Hip Right Flexion w/Knee Flexed 100 Abduction 20 Comments 09/14/23: 100 deg flex, 10 deg abd, 20 deg IR, 35 deg ER Re-evaluation: 75 deg flex, 5 deg abduction 11/03/23: 100 deg flex, 20 deg abd PT-OP-M Strength Start: 09/14/23 11:19 Freq: Status: Active Protocol: Document 11/03/23 09:47 NM (Rec: 11/03/23 13:16 NM [id number]) Hip Strength Hip Manual Muscle Testing Right Flexion (L2) 4- Good- Abduction 4- Good- Adduction 3 Fair Comments 09/14/23: 4-/5 for all pre-op; pain with IR, flex 10/03/23: Not formally tested at re-evaluation due to precautions; however pt able to perform SLR to bring leg on /off plinth during transfer and heels slides 11/03/23: 4-/5 for all; hip ext not tested; hip abd tested in sitting PT-OP-Q Treatments Start: 09/14/23 11:19 Freq: Status: Active Protocol: Document 11/14/23 08:19 NM (Rec: 11/14/23 08:59 NM [id number]) Gym Equipment Shuttle Recovery Unilateral Squats Resistance 50# (2 navy) Reps/Time 2x10 Therapeutic Exercises Sidelying Exercises clams Sidelying Exercise Name trialed in PT to promote ER range Side right Reps/Minutes 2x10 Comments good hip positioning; edu to remain w/i comfortable range; pain free Sitting Exercises LAQ Sitting Exercise Name Edu to add a band for HEP Side bilateral Resistance level 1 band at ankles Reps/Minutes 2x15 w/ 2 hold Comments challenging with hold Standing Exercises hip flexor stretch Side bilateral Equipment Used 2nd step on 6 step Reps/Minutes 2x60 ea Other Exercises lunge Other Exercise Name RLE forward (Trialed first), then slight hip ext when RLE behind Side bilateral Equipment Used hand support Reps/Minutes 2x15 ea Comments no pain but hard; cued wider ATILIO Manual Therapy Treatment Consent Patient gave verbal consent for manual Yes treatment Soft Tissue Mobilization R hip Body Location scar tissue, adductor, hip flexors, glutes Mobilization Type Cross-Friction,Rolling Intensity/Depth Superficial Body Position Hooklying Comments Increased tightness of adductors, reduced with mobilization. Monitored for pain PT-OP-T Assessment and Plan Start: 09/14/23 11:19 Freq: Status: Active Protocol: Document 11/14/23 08:19 NM (Rec: 11/14/23 08:59 NM [id number]) Physical Therapy Assessment Goals Transfers Impairment pt wants to return to gardening Intermediate Goal (LTG) If appropriate per precautions , pt will be able to transfer to/from floor in a controlled manner for at least 5 reps in order to be able to return to gardening LTG Duration 12 weeks gait Impairment 6 MWT pre-op 704 ft with 4ww; post op with 379 ft FWW Impairment . Short Term Goal (STG) Pt will demonstrate normal gait mechanics without LRAD for household and short community distances in order to demonstrate return to PLOF and improved balance for gait/ activity tolerance 11/03/23: pt not using spc in home but still using spc in community as needed 11/14/23: pt reports that she is no longer using spc for community ambulation; demos improved gait mechanics STG Duration 6 weeks MET [employer] Goal (LTG) Pt will improve 6 MWT distance without LRAD to >1000 ft, if appropriate, in order to demonstrate improved gait mechanics, endurance, and pain management for community participation LTG Duration 12 weeks weakness Impairment R hip strength 4-/5 pre-op, 3/ 5 post-op Impairment . Short Term Goal (STG) Pt will be able to perform 5x STS test in fewer than 15 seconds without increase in R hip pain (pre-op 28 sec) in order to demonstrate improved BLE strength for gait, transfers, and stairs 11/03/23: 4-/5 for all at hip; 14.8 sec w/o pain from standard ht STG Duration 6 weeks MET [employer] Goal (LTG) Pt will improve R hip strength globally post-operatively to at least 4+/5 MMT in order to demonstrate improved strength for transfers, gait, stairs, and gardening LTG Duration 12 weeks Stairs Impairment has 15 stairs inside home, 3 steps outside home Impairment . Short Term Goal (STG) Pt will be able to perform at least 15 stairs using rails or AD IND post-operatively in order to demonstrate improved household mobility 11/03/23: 16 stairs with 1 rail assist for balance w/o pain STG Duration 4 weeks MET Intermediate Goal (LTG) Pt will have no limitation with stairs due to R hip pain in order to be able to perform all household stairs and stairs within community LTG Duration 12 weeks Hip ROM Impairment global limitations in hip flex , abd Impairment . Short Term Goal (STG) Pt will improve R hip flexion AROM to at least 95 deg in order to demonstrate improved ROM for swing phase of gait 11/03/23: 100 deg hip flexion; 20 deg hip abduction STG Duration 6 weeks MET Intermediate Goal (LTG) Pt will demonstrate R hip flexion AROM to at least 110 deg in order to be able to garden LTG Duration 12 weeks Assessment Summary Assessment Pt tolerated session well, reports no pain during or at end of session. Progressing well toward goals. Initiated forward lunges today in preparation for floor transfers. Pt able to perform with RLE in slight hip extension, but demonstrates increased hip flexor tightness . Challenging for pt but pain free. Progressed resistance for LAQ and unilateral squat on leg press. Due to increased restrictions of R hip flexors , trialed standing hip flexor stretch with RLE in neutral, which pt tolerated well with cueing for form. Pt would benefit from skilled PT for progressive strengthening, mobility, and transfer training in order to improve symptom management and functional mobility. Physical Therapy Plan Frequency and Duration Frequency of Treatment 2x/Week Duration of treatment (weeks) 12 Plan of Care Start Date 10/03/23 Plan of Care End Date 12/29/23 Therapeutic Interventions Therapeutic Interventions Balance Training,Gait Training ,Home Exercise Program,Joint Mobilizations,Manual Therapy, Neuromuscular Re-education, Orthotic/Prosthetic Management ,Patient/Caregiver Education, Self-Care/Home Management, Sensory Integration,Soft Tissue Mobilization,Taping, Therapeutic Activities, Therapeutic Exercises Modalities Cold Pack/Ice Massage,Electric Stimulation,Hot Packs, Ultrasound Next Visit Focus/Plan Next Note Type Treatment Note Next Visit Plan Focus on balance w/ SLS, unstable surfaces. Retrial lunges and initiate floor transfers if appropriate. Assess stalin to LAQ band (HEP), clams, hip flexor stretch.. SLR, cont w/ leg press, tiral hip 3 way manual prn for swelling and pain management, soft tissue mobilization
--- NOTE | 2023-11-17 16:28 | PT.OTN ---
Current Diagnoses Unilateral primary osteoarthritis, right hip (11/17/23) Stiffness of right hip, not elsewhere classified (11/17/23) Other lack of coordination (11/17/23) Weakness (11/17/23) Physical Therapy Treatment Note PT-OP-A Visit Information Start: 09/14/23 11:19 Freq: Status: Active Protocol: Document 11/17/23 12:57 AB (Rec: 11/17/23 14:41 AB [id number]) Out-Patient Physical Therapy Visit Information Visit Information Visit Type Treatment Note Visit Note DOS 09/26/23 Visit Start Time 13:01 Visit Stop Time 13:46 Visit Number 14 Number of GRAPE GROWER Visits 1 Evaluation Information Evaluation Date 09/14/23 Precautions Precautions No more precautions post MD appointment 11/08/23 per patient DOS 09/26/23 PT-OP-B Current Condition Start: 09/14/23 11:19 Freq: Status: Active Protocol: Document 10/03/23 13:44 NM (Rec: 10/03/23 14:34 NM [id number]) Current Condition History of Current Condition Onset Date DOS 09/26/23 Current Complaints pain, poor mobility, gait, balance History of Current Condition 10/03/23: Pt presents following R AMADOR on 09/26/23. Pt reports that she feels really good. She had no complications with surgery. She is still taking pain medications and has a large bruise along her L hip. She presents with spc in L hand. She spent the night in the hospital. Pt able to state hip precautions (no ER, no hip ext). She recently FWW. She has been sleeping upstairs , able to use stairs very well. Has been sleeping both in guest room and in her bed due to transition into bed because has to get into bed on L side. Has been icigin 2-3x/ day, taking acetaminophen/ ibuprofen 4-5x/day. She has follow up with Dr. Almazan next week. She has numbness along the R lateral leg, states getting better. Does not report any signs or symptoms of infection. She has been doing the HEP from hospital every day. 09/14/23: Pt presents with R hip pain. She will surgery in September 25. Planning on an anterior approach. Pt had lumbar surgery in January, which went well. Last visit with Dr. Honeycutt for pain in July, ok to BLT. Recently finished PT in June. 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 She had a collapsed R arch in the . She reports impairments in standing time, standing straight up, sleeping (wakes her up at night). She has been using 4ww since back surgery, only uses periodically. Plans to get FWW . Pt has 3 steps to enter home , rails on both sides; garage has 3 steps with a handle on the R side. She has 15 steps with rail on R side inside with a bedroom upstairs; she does have a room downstairs where she can sleep but still has to bathe upstairs. She has a bench in the bathtub but also has a shower chair. She lives with her who can physically help her. Treatment Goals Patient/Caregiver Goals gardening (hands and knees or sitting on ground) Prior Functional Status Baseline Function- ADL's Independent Baseline Function- Mobility Modified Independent Baseline Function- Gait ambulation 1 block w/o AD, better w/ 4WW Baseline Function- Recreation/Hobbies sewing, lifting sewing machine , swim 3x/wk Baseline Function- Other hip ER with dressing using clothing to help PT-OP-C Subjective Start: 09/14/23 11:19 Freq: Status: Active Protocol: Document 11/17/23 12:57 AB (Rec: 11/17/23 14:41 AB [id number]) OP-PT Subjective Patient Comments Patient Comments Patient reports her hip is fine, does still have pain right piriformis/gluteal area with exercise and bending down to pick items from the floor. PT-OP-D Balance Start: 09/14/23 11:19 Freq: Status: Active Protocol: Document 10/23/23 08:03 AB (Rec: 10/23/23 13:01 AB [id number]) Case Balance Assessment Evaluation Sitting to Standing Ability Independent w/out Hands Unsupported Stance Safely- 2 minutes Sitting Unsupported, Feet on Floor Safely- 2 minutes Standing to Sitting Ability Safely, Minimal Hand Use Transfer Ability Safely, Minimal Hand Use Unsupported Stance- Eyes Closed Safely, 10 seconds Unsupported Stance- Eyes Open Independent, 1 minute Reaching Forward Standing Safely, 5 inches Pick- Up Object From Floor Requires Assistance Look Behind Shoulder - Standing Shifts Weight Well Turning 360 Degrees Turns Bilateral, < 4 secs Unsupported Stance, Alternating Feet on (I)- 8 Steps in 20 secs Stair Unsupported Tandem Stance Balance Lost- Step/Stand Unilateral Leg Stance Lifts Leg/Unable to Hold Total Score Case Total Score (out of 56 points) 44 Case Impairment Rating 0% Impaired (Score 56) PT-OP-E Functional Tests Start: 09/14/23 11:19 Freq: Status: Active Protocol: Document 10/03/23 13:44 NM (Rec: 10/03/23 14:34 NM [id number]) Functional Tests 6 Minute Walk Test Distance RE: 379 ft, IE: 740 ft Device Used RE: 4ww, IE: 4ww Comments pain w/ ambulation but reduced w/ AD use Five Times Sit to Stand Test Score RE: did not attempt, IE: 28 sec Comments increased time; painful in hip PT-OP-F Manual Assessment Start: 09/14/23 11:19 Freq: Status: Active Protocol: Document 10/03/23 13:44 NM (Rec: 10/03/23 14:34 NM [id number]) Manual Assessments Soft Tissue Assessment Soft Tissue Mobility Assessment Tenderness along lateral hip and along anterior incision, slight tenderness posteriorly Joint Mobility Assessment Joint Mobility Assessment limited AROM of R hip due to precautions PT-OP-G Mobility & Gait Start: 09/14/23 11:19 Freq: Status: Active Protocol: Document 10/03/23 13:44 NM (Rec: 10/03/23 15:52 NM [id number]) OP Mobility Evaluation Bed Mobility Rolling close SBA Supine to and from Sit close SBA Transfers Sit to Stand without AD and minimal hand support from surface, close SBA OP Gait Assessment Gait Gait Assistance Required: Standby Assistance,Contact Guard Assist Assistive Devices Assistive Device Gait Belt,Straight Cane,Front Wheeled Walker Gait Deviations General Gait Pattern Antalgic Comments Gait Comments Limited RLE extension during stance. Demos spc use far to L side, moderately dependent for balance. Transition to FWW , which pt uses step to gait with more normal mechanics and demos better trunk stability PT-OP-H Neuro Start: 09/14/23 11:19 Freq: Status: Active Protocol: Document 10/03/23 13:44 NM (Rec: 10/03/23 14:34 NM [id number]) Sensation Evaluation Comments Summary Comments Decreased along R lateral thigh to mid thigh PT-OP-J Posture/Palpation/Skin Start: 09/14/23 11:19 Freq: Status: Active Protocol: Document 10/03/23 13:44 NM (Rec: 10/03/23 14:34 NM [id number]) Posture Evaluation Position Standing Head/C-Spine Posture Forward Head L-Spine Posture Increased Lordosis Weight Distribution Weight Shifted Left Hip Posture (L) Neutral,(R) Externally Rotated Knee Posture (L) Genu Valgus,(R) Genu Valgus Patellar Posture (L) Superior,(R) Superior Ankle/Foot Posture (L) Pronated,(R) Pronated Comments Posture Comments Demos less fwd flexed trunk posture post op and near equal WB on BLE in stance Palpation Assessment Location R hip Palpation Findings Soft Tissue Tightness, Tenderness Palpation Details 10/03/23: tenderness along anterior and lateral thigh, mild posterior hip tenderness, slight numbness along mid lateral thigh; scar covered by bandage and bruising present along anterior and lateral leg 09/14/23: tenderness to palpation along anterior, medial, and posterior hip muscles, hip joint Skin Assessment Incisional Assessment Incision Appearance/Comments Incision covered by bandage but no redness, drainage or other signs/symptoms of infection or DVT. Slight swelling at R ankle but less proximally PT-OP-K Range of Motion Start: 09/14/23 11:19 Freq: Status: Active Protocol: Document 11/03/23 09:47 NM (Rec: 11/03/23 13:16 NM [id number]) Hip Goniometric Range of Motion Hip Right Flexion w/Knee Flexed 100 Abduction 20 Comments 09/14/23: 100 deg flex, 10 deg abd, 20 deg IR, 35 deg ER Re-evaluation: 75 deg flex, 5 deg abduction 11/03/23: 100 deg flex, 20 deg abd PT-OP-M Strength Start: 09/14/23 11:19 Freq: Status: Active Protocol: Document 11/03/23 09:47 NM (Rec: 11/03/23 13:16 NM [id number]) Hip Strength Hip Manual Muscle Testing Right Flexion (L2) 4- Good- Abduction 4- Good- Adduction 3 Fair Comments 09/14/23: 4-/5 for all pre-op; pain with IR, flex 10/03/23: Not formally tested at re-evaluation due to precautions; however pt able to perform SLR to bring leg on /off plinth during transfer and heels slides 11/03/23: 4-/5 for all; hip ext not tested; hip abd tested in sitting PT-OP-Q Treatments Start: 09/14/23 11:19 Freq: Status: Active Protocol: Document 11/17/23 12:57 AB (Rec: 11/17/23 14:41 AB [id number]) Therapeutic Exercises Sitting Exercises AROM IR and ER Reps/Minutes X15 Comments Verbal cues hip abduction Side bilateral Resistance level 5 band Reps/Minutes 1 minute hold and 15X 2 without hold Comments prior to balance exercises Standing Exercises calf stretch Side bilateral Equipment Used VANCE Reps/Minutes 60 X 1 Manual Therapy Treatment Consent Patient gave verbal consent for manual Yes treatment Soft Tissue Mobilization R hip Body Location scar tissue, hip flexors, glutes/piriformis Mobilization Type Cross-Friction,Rolling Intensity/Depth Superficial Body Position Hooklying Neuro Re-Education Treatment Balance Activities mat with obsticals Details therapods and small blocks Reps/Duration one mat X 8 Comments CGA tandem stepping Reps/Duration 12 feet X 6 Comments CGA hand above bar step up taps Details 1. 6 inch step 2. standing on foam 6 inch step tap Reps/Duration X10 each Comments CGA hand above bar SLS Reps/Duration X5 right LE CGA PT-OP-T Assessment and Plan Start: 09/14/23 11:19 Freq: Status: Active Protocol: Document 11/17/23 12:57 AB (Rec: 11/17/23 14:41 AB [id number]) Physical Therapy Assessment Goals Transfers Impairment pt wants to return to gardening Fdc Goal (LTG) If appropriate per precautions , pt will be able to transfer to/from floor in a controlled manner for at least 5 reps in order to be able to return to gardening LTG Duration 12 weeks gait Impairment 6 MWT pre-op 704 ft with 4ww; post op with 379 ft FWW Impairment . Short Term Goal (STG) Pt will demonstrate normal gait mechanics without LRAD for household and short community distances in order to demonstrate return to PLOF and improved balance for gait/ activity tolerance 11/03/23: pt not using spc in home but still using spc in community as needed 11/14/23: pt reports that she is no longer using spc for community ambulation; demos improved gait mechanics STG Duration 6 weeks MET Fdc Goal (LTG) Pt will improve 6 MWT distance without LRAD to >1000 ft, if appropriate, in order to demonstrate improved gait mechanics, endurance, and pain management for community participation LTG Duration 12 weeks weakness Impairment R hip strength 4-/5 pre-op, 3/ 5 post-op Impairment . Short Term Goal (STG) Pt will be able to perform 5x STS test in fewer than 15 seconds without increase in R hip pain (pre-op 28 sec) in order to demonstrate improved BLE strength for gait, transfers, and stairs 11/03/23: 4-/5 for all at hip; 14.8 sec w/o pain from standard ht STG Duration 6 weeks MET Fdc Goal (LTG) Pt will improve R hip strength globally post-operatively to at least 4+/5 MMT in order to demonstrate improved strength for transfers, gait, stairs, and gardening LTG Duration 12 weeks Stairs Impairment has 15 stairs inside home, 3 steps outside home Impairment . Short Term Goal (STG) Pt will be able to perform at least 15 stairs using rails or AD IND post-operatively in order to demonstrate improved household mobility 11/03/23: 16 stairs with 1 rail assist for balance w/o pain STG Duration 4 weeks MET Wait Staff Goal (LTG) Pt will have no limitation with stairs due to R hip pain in order to be able to perform all household stairs and stairs within community LTG Duration 12 weeks Hip ROM Impairment global limitations in hip flex , abd Impairment . Short Term Goal (STG) Pt will improve R hip flexion AROM to at least 95 deg in order to demonstrate improved ROM for swing phase of gait 11/03/23: 100 deg hip flexion; 20 deg hip abduction STG Duration 6 weeks MET Fdc Goal (LTG) Pt will demonstrate R hip flexion AROM to at least 110 deg in order to be able to garden LTG Duration 12 weeks Assessment Summary Assessment Patient reports having no pain end of session, SLS 3 sec right LE without UE use. Physical Therapy Plan Frequency and Duration Frequency of Treatment 2x/Week Duration of treatment (weeks) 12 Plan of Care Start Date 10/03/23 Plan of Care End Date 12/29/23 Next Visit Focus/Plan Next Note Type Treatment Note Next Visit Plan Focus on balance w/ SLS, unstable surfaces. Retrial lunges and initiate floor transfers if appropriate. Assess stalin to LAQ band (HEP), clams, hip flexor stretch.. SLR, cont w/ leg press, tiral hip 3 way manual prn for swelling and pain management, soft tissue mobilization
--- NOTE | 2023-11-21 11:48 | PT.OTN ---
Current Diagnoses Unilateral primary osteoarthritis, right hip (11/21/23) Stiffness of right hip, not elsewhere classified (11/21/23) Other lack of coordination (11/21/23) Weakness (11/21/23) Physical Therapy Treatment Note PT-OP-A Visit Information Start: 09/14/23 11:19 Freq: Status: Active Protocol: Document 11/21/23 08:13 AB (Rec: 11/21/23 11:48 AB [id number]) Out-Patient Physical Therapy Visit Information Visit Information Visit Type Treatment Note Visit Note DOS 09/26/23 Visit Start Time 09:03 Visit Stop Time 09:49 Visit Number 15 Number of PROFESSOR OF EXERCISE SCIENCE Visits 2 Evaluation Information Evaluation Date 09/14/23 Precautions Precautions No more precautions post MD appointment 11/08/23 per patient DOS 09/26/23 PT-OP-B Current Condition Start: 09/14/23 11:19 Freq: Status: Active Protocol: Document 10/03/23 13:44 NM (Rec: 10/03/23 14:34 NM [id number]) Current Condition History of Current Condition Onset Date DOS 09/26/23 Current Complaints pain, poor mobility, gait, balance History of Current Condition 10/03/23: Pt presents following R AMADOR on 09/26/23. Pt reports that she feels really good. She had no complications with surgery. She is still taking pain medications and has a large bruise along her L hip. She presents with spc in L hand. She spent the night in the hospital. Pt able to state hip precautions (no ER, no hip ext). She recently FWW. She has been sleeping upstairs , able to use stairs very well. Has been sleeping both in guest room and in her bed due to transition into bed because has to get into bed on L side. Has been icigin 2-3x/ day, taking acetaminophen/ ibuprofen 4-5x/day. She has follow up with Dr. Almazan next week. She has numbness along the R lateral leg, states getting better. Does not report any signs or symptoms of infection. She has been doing the HEP from hospital every day. 09/14/23: Pt presents with R hip pain. She will surgery in September 25. Planning on an anterior approach. Pt had lumbar surgery in January, which went well. Last visit with Dr. Honeycutt for pain in July, ok to BLT. Recently finished PT in June. 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 She had a collapsed R arch in the . She reports impairments in standing time, standing straight up, sleeping (wakes her up at night). She has been using 4ww since back surgery, only uses periodically. Plans to get FWW . Pt has 3 steps to enter home , rails on both sides; garage has 3 steps with a handle on the R side. She has 15 steps with rail on R side inside with a bedroom upstairs; she does have a room downstairs where she can sleep but still has to bathe upstairs. She has a bench in the bathtub but also has a shower chair. She lives with her who can physically help her. Treatment Goals Patient/Caregiver Goals gardening (hands and knees or sitting on ground) Prior Functional Status Baseline Function- ADL's Independent Baseline Function- Mobility Modified Independent Baseline Function- Gait ambulation 1 block w/o AD, better w/ 4WW Baseline Function- Recreation/Hobbies sewing, lifting sewing machine , swim 3x/wk Baseline Function- Other hip ER with dressing using clothing to help PT-OP-C Subjective Start: 09/14/23 11:19 Freq: Status: Active Protocol: Document 11/21/23 08:13 AB (Rec: 11/21/23 11:48 AB [id number]) OP-PT Subjective Patient Comments Patient Comments Patient rated .5/10 right hip pain, comments she feels like she just got up, comments she didn't sleep well last night. PT-OP-D Balance Start: 09/14/23 11:19 Freq: Status: Active Protocol: Document 10/23/23 08:03 AB (Rec: 10/23/23 13:01 AB [id number]) Case Balance Assessment Evaluation Sitting to Standing Ability Independent w/out Hands Unsupported Stance Safely- 2 minutes Sitting Unsupported, Feet on Floor Safely- 2 minutes Standing to Sitting Ability Safely, Minimal Hand Use Transfer Ability Safely, Minimal Hand Use Unsupported Stance- Eyes Closed Safely, 10 seconds Unsupported Stance- Eyes Open Independent, 1 minute Reaching Forward Standing Safely, 5 inches Pick- Up Object From Floor Requires Assistance Look Behind Shoulder - Standing Shifts Weight Well Turning 360 Degrees Turns Bilateral, < 4 secs Unsupported Stance, Alternating Feet on (I)- 8 Steps in 20 secs Stair Unsupported Tandem Stance Balance Lost- Step/Stand Unilateral Leg Stance Lifts Leg/Unable to Hold Total Score Case Total Score (out of 56 points) 44 Case Impairment Rating 0% Impaired (Score 56) PT-OP-E Functional Tests Start: 09/14/23 11:19 Freq: Status: Active Protocol: Document 10/03/23 13:44 NM (Rec: 10/03/23 14:34 NM [id number]) Functional Tests 6 Minute Walk Test Distance RE: 379 ft, IE: 740 ft Device Used RE: 4ww, IE: 4ww Comments pain w/ ambulation but reduced w/ AD use Five Times Sit to Stand Test Score RE: did not attempt, IE: 28 sec Comments increased time; painful in hip PT-OP-F Manual Assessment Start: 09/14/23 11:19 Freq: Status: Active Protocol: Document 10/03/23 13:44 NM (Rec: 10/03/23 14:34 NM [id number]) Manual Assessments Soft Tissue Assessment Soft Tissue Mobility Assessment Tenderness along lateral hip and along anterior incision, slight tenderness posteriorly Joint Mobility Assessment Joint Mobility Assessment limited AROM of R hip due to precautions PT-OP-G Mobility & Gait Start: 09/14/23 11:19 Freq: Status: Active Protocol: Document 10/03/23 13:44 NM (Rec: 10/03/23 15:52 NM [id number]) OP Mobility Evaluation Bed Mobility Rolling close SBA Supine to and from Sit close SBA Transfers Sit to Stand without AD and minimal hand support from surface, close SBA OP Gait Assessment Gait Gait Assistance Required: Standby Assistance,Contact Guard Assist Assistive Devices Assistive Device Gait Belt,Straight Cane,Front Wheeled Walker Gait Deviations General Gait Pattern Antalgic Comments Gait Comments Limited RLE extension during stance. Demos spc use far to L side, moderately dependent for balance. Transition to FWW , which pt uses step to gait with more normal mechanics and demos better trunk stability PT-OP-H Neuro Start: 09/14/23 11:19 Freq: Status: Active Protocol: Document 10/03/23 13:44 NM (Rec: 10/03/23 14:34 NM [id number]) Sensation Evaluation Comments Summary Comments Decreased along R lateral thigh to mid thigh PT-OP-J Posture/Palpation/Skin Start: 09/14/23 11:19 Freq: Status: Active Protocol: Document 10/03/23 13:44 NM (Rec: 10/03/23 14:34 NM [id number]) Posture Evaluation Position Standing Head/C-Spine Posture Forward Head L-Spine Posture Increased Lordosis Weight Distribution Weight Shifted Left Hip Posture (L) Neutral,(R) Externally Rotated Knee Posture (L) Genu Valgus,(R) Genu Valgus Patellar Posture (L) Superior,(R) Superior Ankle/Foot Posture (L) Pronated,(R) Pronated Comments Posture Comments Demos less fwd flexed trunk posture post op and near equal WB on BLE in stance Palpation Assessment Location R hip Palpation Findings Soft Tissue Tightness, Tenderness Palpation Details 10/03/23: tenderness along anterior and lateral thigh, mild posterior hip tenderness, slight numbness along mid lateral thigh; scar covered by bandage and bruising present along anterior and lateral leg 09/14/23: tenderness to palpation along anterior, medial, and posterior hip muscles, hip joint Skin Assessment Incisional Assessment Incision Appearance/Comments Incision covered by bandage but no redness, drainage or other signs/symptoms of infection or DVT. Slight swelling at R ankle but less proximally PT-OP-K Range of Motion Start: 09/14/23 11:19 Freq: Status: Active Protocol: Document 11/03/23 09:47 NM (Rec: 11/03/23 13:16 NM [id number]) Hip Goniometric Range of Motion Hip Right Flexion w/Knee Flexed 100 Abduction 20 Comments 09/14/23: 100 deg flex, 10 deg abd, 20 deg IR, 35 deg ER Re-evaluation: 75 deg flex, 5 deg abduction 11/03/23: 100 deg flex, 20 deg abd PT-OP-M Strength Start: 09/14/23 11:19 Freq: Status: Active Protocol: Document 11/03/23 09:47 NM (Rec: 11/03/23 13:16 NM [id number]) Hip Strength Hip Manual Muscle Testing Right Flexion (L2) 4- Good- Abduction 4- Good- Adduction 3 Fair Comments 09/14/23: 4-/5 for all pre-op; pain with IR, flex 10/03/23: Not formally tested at re-evaluation due to precautions; however pt able to perform SLR to bring leg on /off plinth during transfer and heels slides 11/03/23: 4-/5 for all; hip ext not tested; hip abd tested in sitting PT-OP-Q Treatments Start: 09/14/23 11:19 Freq: Status: Active Protocol: Document 11/21/23 08:13 AB (Rec: 11/21/23 11:48 AB [id number]) Gym Equipment Shuttle Balance WBOS, NBOS Details Red, also stagger stance and mini squat X10 w/o head turns and scanning Comments CGA, with visual scanning and head turns Therapeutic Exercises Supine Exercises Modified Rell stretch Supine Exercise Name one LE on bolster with pillow opp LE on mat Reps/Minutes 2 minutes each LE Comments Verbal cues for breathing, performed post manual Sitting Exercises hip abduction Side bilateral Resistance level 5 band Reps/Minutes 1 minute hold and 15X 2 without hold Comments prior to balance exercises Standing Exercises hip 3 way Standing Exercise Name with UE support HEP Side right Resistance level one light blue band Reps/Minutes X10 each direction Comments verbal cues Manual Therapy Treatment Soft Tissue Mobilization R hip Body Location scar tissue, hip flexors, Mobilization Type Cross-Friction,Rolling Intensity/Depth Superficial Body Position Hooklying Neuro Re-Education Treatment Balance Activities tandem stepping Reps/Duration 12 feet X 6 Comments CGA hand above bar step up taps Details standing on foam 6 inch step tap Reps/Duration X12 each Comments CGA hand above bar hurdles Reps/Duration 12 feet X 6 Comments CGA hand above bar SLS Reps/Duration X5 right LE CGA PT-OP-T Assessment and Plan Start: 09/14/23 11:19 Freq: Status: Active Protocol: Document 11/21/23 08:13 AB (Rec: 11/21/23 11:48 AB [id number]) Physical Therapy Assessment Goals Transfers Impairment pt wants to return to gardening Chcf Goal (LTG) If appropriate per precautions , pt will be able to transfer to/from floor in a controlled manner for at least 5 reps in order to be able to return to gardening LTG Duration 12 weeks gait Impairment 6 MWT pre-op 704 ft with 4ww; post op with 379 ft FWW Impairment . Short Term Goal (STG) Pt will demonstrate normal gait mechanics without LRAD for household and short community distances in order to demonstrate return to PLOF and improved balance for gait/ activity tolerance 11/03/23: pt not using spc in home but still using spc in community as needed 11/14/23: pt reports that she is no longer using spc for community ambulation; demos improved gait mechanics STG Duration 6 weeks MET Ems Coordinator Goal (LTG) Pt will improve 6 MWT distance without LRAD to >1000 ft, if appropriate, in order to demonstrate improved gait mechanics, endurance, and pain management for community participation LTG Duration 12 weeks weakness Impairment R hip strength 4-/5 pre-op, 3/ 5 post-op Impairment . Short Term Goal (STG) Pt will be able to perform 5x STS test in fewer than 15 seconds without increase in R hip pain (pre-op 28 sec) in order to demonstrate improved BLE strength for gait, transfers, and stairs 11/03/23: 4-/5 for all at hip; 14.8 sec w/o pain from standard ht STG Duration 6 weeks MET Ems Coordinator Goal (LTG) Pt will improve R hip strength globally post-operatively to at least 4+/5 MMT in order to demonstrate improved strength for transfers, gait, stairs, and gardening LTG Duration 12 weeks Stairs Impairment has 15 stairs inside home, 3 steps outside home Impairment . Short Term Goal (STG) Pt will be able to perform at least 15 stairs using rails or AD IND post-operatively in order to demonstrate improved household mobility 11/03/23: 16 stairs with 1 rail assist for balance w/o pain STG Duration 4 weeks MET Chcf Goal (LTG) Pt will have no limitation with stairs due to R hip pain in order to be able to perform all household stairs and stairs within community LTG Duration 12 weeks Hip ROM Impairment global limitations in hip flex , abd Impairment . Short Term Goal (STG) Pt will improve R hip flexion AROM to at least 95 deg in order to demonstrate improved ROM for swing phase of gait 11/03/23: 100 deg hip flexion; 20 deg hip abduction STG Duration 6 weeks MET Ems Coordinator Goal (LTG) Pt will demonstrate R hip flexion AROM to at least 110 deg in order to be able to garden LTG Duration 12 weeks Assessment Summary Assessment Patient rates pain no more than .5/10 right hip end of session. Significant increase in left LE SLS post glute med activation, but minimal change in right LE ( without UE use. ) Physical Therapy Plan Frequency and Duration Frequency of Treatment 2x/Week Duration of treatment (weeks) 12 Plan of Care Start Date 10/03/23 Plan of Care End Date 12/29/23 Next Visit Focus/Plan Next Note Type Treatment Note Next Visit Plan Focus on balance w/ SLS, unstable surfaces. Retrial lunges and initiate floor transfers if appropriate. (HEP ), clams, hip flexor stretch.. SLR, cont w/ leg press, manual prn for swelling and pain management, soft tissue mobilization
--- NOTE | 2023-11-24 15:34 | PT.OTN ---
Current Diagnoses Unilateral primary osteoarthritis, right hip (11/24/23) Stiffness of right hip, not elsewhere classified (11/24/23) Other lack of coordination (11/24/23) Weakness (11/24/23) Physical Therapy Treatment Note PT-OP-A Visit Information Start: 09/14/23 11:19 Freq: Status: Active Protocol: Document 11/24/23 13:50 NM (Rec: 11/24/23 14:30 NM [id number]) Out-Patient Physical Therapy Visit Information Visit Information Visit Type Treatment Note Visit Note DOS 09/26/23 Visit Start Time 13:50 Visit Stop Time 14:30 Visit Number 16 Evaluation Information Evaluation Date 09/14/23 Precautions Precautions No more precautions post MD appointment 11/08/23 per patient DOS 09/26/23 PT-OP-B Current Condition Start: 09/14/23 11:19 Freq: Status: Active Protocol: Document 10/03/23 13:44 NM (Rec: 10/03/23 14:34 NM [id number]) Current Condition History of Current Condition Onset Date DOS 09/26/23 Current Complaints pain, poor mobility, gait, balance History of Current Condition 10/03/23: Pt presents following R [facility]AD[facility] on 09/26/23. Pt reports that she feels really good. She had no complications with surgery. She is still taking pain medications and has a large bruise along her L hip. She presents with spc in L hand. She spent the night in the hospital. Pt able to state hip precautions (no ER, no hip ext). She recently FWW. She has been sleeping upstairs , able to use stairs very well. Has been sleeping both in guest room and in her bed due to transition into bed because has to get into bed on L side. Has been icigin 2-3x/ day, taking acetaminophen/ ibuprofen 4-5x/day. She has follow up with Dr. Almazan next week. She has numbness along the R lateral leg, states getting better. Does not report any signs or symptoms of infection. She has been doing the HEP from hospital every day. 09/14/23: Pt presents with R hip pain. She will surgery in September 25. Planning on an anterior approach. Pt had lumbar surgery in January, which went well. Last visit with Dr. Honeycutt for pain in July, ok to T. Recently finished PT in June. 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 She had a collapsed R arch in the . She reports impairments in standing time, standing straight up, sleeping (wakes her up at night). She has been using 4ww since back surgery, only uses periodically. Plans to get FWW . Pt has 3 steps to enter home , rails on both sides; garage has 3 steps with a handle on the R side. She has 15 steps with rail on R side inside with a bedroom upstairs; she does have a room downstairs where she can sleep but still has to bathe upstairs. She has a bench in the bathtub but also has a shower chair. She lives with her who can physically help her. Treatment Goals Patient/Caregiver Goals gardening (hands and knees or sitting on ground) Prior Functional Status Baseline Function- ADL's Independent Baseline Function- Mobility Modified Independent Baseline Function- Gait ambulation 1 block w/o AD, better w/ 4WW Baseline Function- Recreation/Hobbies sewing, lifting sewing machine , swim 3x/wk Baseline Function- Other hip ER with dressing using clothing to help PT-OP-C Subjective Start: 09/14/23 11:19 Freq: Status: Active Protocol: Document 11/24/23 13:50 NM (Rec: 11/24/23 14:30 NM [id number]) OP-PT Subjective Patient Comments Patient Comments Pt reports that she is doing well. States no pain, reports just a little of the normal discomfort. States HEP going well PT-OP-D Balance Start: 09/14/23 11:19 Freq: Status: Active Protocol: Document 10/23/23 08:03 AB (Rec: 10/23/23 13:01 AB [id number]) Case Balance Assessment Evaluation Sitting to Standing Ability Independent w/out Hands Unsupported Stance Safely- 2 minutes Sitting Unsupported, Feet on Floor Safely- 2 minutes Standing to Sitting Ability Safely, Minimal Hand Use Transfer Ability Safely, Minimal Hand Use Unsupported Stance- Eyes Closed Safely, 10 seconds Unsupported Stance- Eyes Open Independent, 1 minute Reaching Forward Standing Safely, 5 inches Pick- Up Object From Floor Requires Assistance Look Behind Shoulder - Standing Shifts Weight Well Turning 360 Degrees Turns Bilateral, < 4 secs Unsupported Stance, Alternating Feet on (I)- 8 Steps in 20 secs Stair Unsupported Tandem Stance Balance Lost- Step/Stand Unilateral Leg Stance Lifts Leg/Unable to Hold Total Score Case Total Score (out of 56 points) 44 Case Impairment Rating 0% Impaired (Score 56) PT-OP-E Functional Tests Start: 09/14/23 11:19 Freq: Status: Active Protocol: Document 10/03/23 13:44 NM (Rec: 10/03/23 14:34 NM [id number]) Functional Tests 6 Minute Walk Test Distance RE: 379 ft, IE: 740 ft Device Used RE: 4ww, IE: 4ww Comments pain w/ ambulation but reduced w/ AD use Five Times Sit to Stand Test Score RE: did not attempt, IE: 28 sec Comments increased time; painful in hip PT-OP-F Manual Assessment Start: 09/14/23 11:19 Freq: Status: Active Protocol: Document 10/03/23 13:44 NM (Rec: 10/03/23 14:34 NM [id number]) Manual Assessments Soft Tissue Assessment Soft Tissue Mobility Assessment Tenderness along lateral hip and along anterior incision, slight tenderness posteriorly Joint Mobility Assessment Joint Mobility Assessment limited AROM of R hip due to precautions PT-OP-G Mobility & Gait Start: 09/14/23 11:19 Freq: Status: Active Protocol: Document 10/03/23 13:44 NM (Rec: 10/03/23 15:52 NM [id number]) OP Mobility Evaluation Bed Mobility Rolling close SBA Supine to and from Sit close SBA Transfers Sit to Stand without AD and minimal hand support from surface, close SBA OP Gait Assessment Gait Gait Assistance Required: Standby Assistance,Contact Guard Assist Assistive Devices Assistive Device Gait Belt,Straight Cane,Front Wheeled Walker Gait Deviations General Gait Pattern Antalgic Comments Gait Comments Limited RLE extension during stance. Demos spc use far to L side, moderately dependent for balance. Transition to FWW , which pt uses step to gait with more normal mechanics and demos better trunk stability PT-OP-H Neuro Start: 09/14/23 11:19 Freq: Status: Active Protocol: Document 10/03/23 13:44 NM (Rec: 10/03/23 14:34 NM [id number]) Sensation Evaluation Comments Summary Comments Decreased along R lateral thigh to mid thigh PT-OP-J Posture/Palpation/Skin Start: 09/14/23 11:19 Freq: Status: Active Protocol: Document 10/03/23 13:44 NM (Rec: 10/03/23 14:34 NM [id number]) Posture Evaluation Position Standing Head/C-Spine Posture Forward Head L-Spine Posture Increased Lordosis Weight Distribution Weight Shifted Left Hip Posture (L) Neutral,(R) Externally Rotated Knee Posture (L) Genu Valgus,(R) Genu Valgus Patellar Posture (L) Superior,(R) Superior Ankle/Foot Posture (L) Pronated,(R) Pronated Comments Posture Comments Demos less fwd flexed trunk posture post op and near equal WB on BLE in stance Palpation Assessment Location R hip Palpation Findings Soft Tissue Tightness, Tenderness Palpation Details 10/03/23: tenderness along anterior and lateral thigh, mild posterior hip tenderness, slight numbness along mid lateral thigh; scar covered by bandage and bruising present along anterior and lateral leg 09/14/23: tenderness to palpation along anterior, medial, and posterior hip muscles, hip joint Skin Assessment Incisional Assessment Incision Appearance/Comments Incision covered by bandage but no redness, drainage or other signs/symptoms of infection or DVT. Slight swelling at R ankle but less proximally PT-OP-K Range of Motion Start: 09/14/23 11:19 Freq: Status: Active Protocol: Document 11/03/23 09:47 NM (Rec: 11/03/23 13:16 NM [id number]) Hip Goniometric Range of Motion Hip Right Flexion w/Knee Flexed 100 Abduction 20 Comments 09/14/23: 100 deg flex, 10 deg abd, 20 deg IR, 35 deg ER Re-evaluation: 75 deg flex, 5 deg abduction 11/03/23: 100 deg flex, 20 deg abd PT-OP-M Strength Start: 09/14/23 11:19 Freq: Status: Active Protocol: Document 11/03/23 09:47 NM (Rec: 11/03/23 13:16 NM [id number]) Hip Strength Hip Manual Muscle Testing Right Flexion (L2) 4- Good- Abduction 4- Good- Adduction 3 Fair Comments 09/14/23: 4-/5 for all pre-op; pain with IR, flex 10/03/23: Not formally tested at re-evaluation due to precautions; however pt able to perform SLR to bring leg on /off plinth during transfer and heels slides 11/03/23: 4-/5 for all; hip ext not tested; hip abd tested in sitting PT-OP-Q Treatments Start: 09/14/23 11:19 Freq: Status: Active Protocol: Document 11/24/23 13:50 NM (Rec: 11/24/23 14:30 NM [id number]) Gym Equipment Shuttle Recovery Unilateral Squats Resistance 50# (2 navy) -medium difficulty Reps/Time 3x10 Therapeutic Exercises Sitting Exercises AROM IR and ER Sitting Exercise Name standing with knee on stool Side bilateral Resistance AROM > 1# tb Reps/Minutes 10 AROM IR and ER, 10 w/ band ER and IR Standing Exercises hip 3 way Standing Exercise Name with UE support HEP review Side bilateral Resistance level one light blue band Reps/Minutes 2x10 ea direction Comments verbal cues for form; improved trunk control hip flexor stretch Side bilateral Equipment Used 2nd step on 6 step Reps/Minutes 60 ea march Side bilateral Resistance level 1 band at ankles Equipment Used with 1 hand support for balance Reps/Minutes 20 ea (non alternating) calf stretch Side bilateral Equipment Used VANCE Reps/Minutes 60 Other Exercises lunge Other Exercise Name RLE forward, then slight hip ext when RLE behind Side bilateral Equipment Used hand support Reps/Minutes 10 Comments no pain but hard; cued wider ATILIO Therapeutic Activity Therapeutic Activity transfers Name Floor transfers Comments 1. lunge holding chair, 2x10 2. B knee flexion/hip flex > knee ext/hip ext, 2x10 3. lunge holding chair with R knee in front, transfer to ground. CGA from PT for balance, use of hands to control rise. LLE weaker, difficulty pushing up to rise even using BUE to assist PT-OP-T Assessment and Plan Start: 09/14/23 11:19 Freq: Status: Active Protocol: Document 11/24/23 13:50 NM (Rec: 11/24/23 14:30 NM [id number]) Physical Therapy Assessment Goals Transfers Impairment pt wants to return to gardening [employer] Goal (LTG) If appropriate per precautions , pt will be able to transfer to/from floor in a controlled manner for at least 5 reps in order to be able to return to gardening LTG Duration 12 weeks gait Impairment 6 MWT pre-op 704 ft with 4ww; post op with 379 ft FWW Impairment . Short Term Goal (STG) Pt will demonstrate normal gait mechanics without LRAD for household and short community distances in order to demonstrate return to PLOF and improved balance for gait/ activity tolerance 11/03/23: pt not using spc in home but still using spc in community as needed 11/14/23: pt reports that she is no longer using spc for community ambulation; demos improved gait mechanics STG Duration 6 weeks MET [employer] Goal (LTG) Pt will improve 6 MWT distance without LRAD to >1000 ft, if appropriate, in order to demonstrate improved gait mechanics, endurance, and pain management for community participation LTG Duration 12 weeks weakness Impairment R hip strength 4-/5 pre-op, 3/ 5 post-op Impairment . Short Term Goal (STG) Pt will be able to perform 5x STS test in fewer than 15 seconds without increase in R hip pain (pre-op 28 sec) in order to demonstrate improved BLE strength for gait, transfers, and stairs 11/03/23: 4-/5 for all at hip; 14.8 sec w/o pain from standard ht STG Duration 6 weeks MET [facility] Goal (LTG) Pt will improve R hip strength globally post-operatively to at least 4+/5 MMT in order to demonstrate improved strength for transfers, gait, stairs, and gardening LTG Duration 12 weeks Stairs Impairment has 15 stairs inside home, 3 steps outside home Impairment . Short Term Goal (STG) Pt will be able to perform at least 15 stairs using rails or AD IND post-operatively in order to demonstrate improved household mobility 11/03/23: 16 stairs with 1 rail assist for balance w/o pain STG Duration 4 weeks MET [employer] Goal (LTG) Pt will have no limitation with stairs due to R hip pain in order to be able to perform all household stairs and stairs within community LTG Duration 12 weeks Hip ROM Impairment global limitations in hip flex , abd Impairment . Short Term Goal (STG) Pt will improve R hip flexion AROM to at least 95 deg in order to demonstrate improved ROM for swing phase of gait 11/03/23: 100 deg hip flexion; 20 deg hip abduction STG Duration 6 weeks MET [employer] Goal (LTG) Pt will demonstrate R hip flexion AROM to at least 110 deg in order to be able to garden LTG Duration 12 weeks Assessment Summary Assessment Pt tolerated session well. Reports no pain at end of session. Increased repetitions on leg press for unilateral squat; still medium difficulty for pt, demos mild knee valgus bilaterally. Pt tolerates exercise progressions well with marching, hip 3 way, and lunges. Trialed hip ER and IR with resistance using stool; pt not limited with ROM and pain free. Initiated floor transfer components; pt able to sucessfully perform floor transfer using chair for support via lunge with RLE in front to avoid max hip extension and with CGA to steady from PT. Pt demonstrates RLE weakness of quad and glute compared to LLE . Pt would benefit from skilled PT for RLE progressive strengthening in order to improve ADL and activity tolerance. Physical Therapy Plan Frequency and Duration Frequency of Treatment 2x/Week Duration of treatment (weeks) 12 Plan of Care Start Date 10/03/23 Plan of Care End Date 12/29/23 Therapeutic Interventions Therapeutic Interventions Balance Training,Gait Training ,Home Exercise Program,Joint Mobilizations,Manual Therapy, Neuromuscular Re-education, Orthotic/Prosthetic Management ,Patient/Caregiver Education, Self-Care/Home Management, Sensory Integration,Soft Tissue Mobilization,Taping, Therapeutic Activities, Therapeutic Exercises Modalities Cold Pack/Ice Massage,Electric Stimulation,Hot Packs, Ultrasound Next Visit Focus/Plan Next Note Type Treatment Note Next Visit Plan Focus on balance w/ SLS, unstable surfaces. work on functional strengthening ( picking up objects, lifting, carrying). glute and quad strength Retrial lunges and initiate floor transfers if appropriate . cont w/ leg press, step ups (add foam and bosu). manual prn for swelling and pain management, soft tissue mobilization
--- NOTE | 2023-12-04 14:12 | PT.OTN ---
Current Diagnoses Unilateral primary osteoarthritis, right hip (12/04/23) Stiffness of right hip, not elsewhere classified (12/04/23) Other lack of coordination (12/04/23) Weakness (12/04/23) Physical Therapy Treatment Note PT-OP-A Visit Information Start: 09/14/23 11:19 Freq: Status: Active Protocol: Document 12/04/23 13:00 NM (Rec: 12/04/23 14:12 NM [id number]) Out-Patient Physical Therapy Visit Information Visit Information Visit Type Progress Note Visit Note DOS 09/26/23 Visit Start Time 13:02 Visit Stop Time 13:45 Visit Number 17 Evaluation Information Evaluation Date 09/14/23 Precautions Precautions No more precautions post MD appointment 11/08/23 per patient DOS 09/26/23 PT-OP-B Current Condition Start: 09/14/23 11:19 Freq: Status: Active Protocol: Document 10/03/23 13:44 NM (Rec: 10/03/23 14:34 NM [id number]) Current Condition History of Current Condition Onset Date DOS 09/26/23 Current Complaints pain, poor mobility, gait, balance History of Current Condition 10/03/23: Pt presents following R AMADOR on 09/26/23. Pt reports that she feels really good. She had no complications with surgery. She is still taking pain medications and has a large bruise along her L hip. She presents with spc in L hand. She spent the night in the hospital. Pt able to state hip precautions (no ER, no hip ext). She recently FWW. She has been sleeping upstairs , able to use stairs very well. Has been sleeping both in guest room and in her bed due to transition into bed because has to get into bed on L side. Has been icigin 2-3x/ day, taking acetaminophen/ ibuprofen 4-5x/day. She has follow up with Dr. Almazan next week. She has numbness along the R lateral leg, states getting better. Does not report any signs or symptoms of infection. She has been doing the HEP from hospital every day. 09/14/23: Pt presents with R hip pain. She will surgery in September 25. Planning on an anterior approach. Pt had lumbar surgery in January, which went well. Last visit with Dr. Honeycutt for pain in July, ok to BLT. Recently finished PT in June. 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 She had a collapsed R arch in the . She reports impairments in standing time, standing straight up, sleeping (wakes her up at night). She has been using 4ww since back surgery, only uses periodically. Plans to get FWW . Pt has 3 steps to enter home , rails on both sides; garage has 3 steps with a handle on the R side. She has 15 steps with rail on R side inside with a bedroom upstairs; she does have a room downstairs where she can sleep but still has to bathe upstairs. She has a bench in the bathtub but also has a shower chair. She lives with her who can physically help her. Treatment Goals Patient/Caregiver Goals gardening (hands and knees or sitting on ground) Prior Functional Status Baseline Function- ADL's Independent Baseline Function- Mobility Modified Independent Baseline Function- Gait ambulation 1 block w/o AD, better w/ 4WW Baseline Function- Recreation/Hobbies sewing, lifting sewing machine , swim 3x/wk Baseline Function- Other hip ER with dressing using clothing to help PT-OP-C Subjective Start: 09/14/23 11:19 Freq: Status: Active Protocol: Document 12/04/23 13:00 NM (Rec: 12/04/23 14:12 NM [id number]) OP-PT Subjective Patient Comments Patient Comments Pt just got back from a trip, was able to go down the stairs and to the beach without limitation. She sees the orthotic specialist to tomorrow. She is concerned about hip ER e.g. to put her shoes on. Pt reports that last weekend that she transferred to the ground in the garden last weekend, went to stand up using her garden bench and fell to her L side and hit her head on her porch. No headache, no loss of consciousness, no visual changes; did not get assessed. PT-OP-D Balance Start: 09/14/23 11:19 Freq: Status: Active Protocol: Document 10/23/23 08:03 AB (Rec: 10/23/23 13:01 AB [id number]) Case Balance Assessment Evaluation Sitting to Standing Ability Independent w/out Hands Unsupported Stance Safely- 2 minutes Sitting Unsupported, Feet on Floor Safely- 2 minutes Standing to Sitting Ability Safely, Minimal Hand Use Transfer Ability Safely, Minimal Hand Use Unsupported Stance- Eyes Closed Safely, 10 seconds Unsupported Stance- Eyes Open Independent, 1 minute Reaching Forward Standing Safely, 5 inches Pick- Up Object From Floor Requires Assistance Look Behind Shoulder - Standing Shifts Weight Well Turning 360 Degrees Turns Bilateral, < 4 secs Unsupported Stance, Alternating Feet on (I)- 8 Steps in 20 secs Stair Unsupported Tandem Stance Balance Lost- Step/Stand Unilateral Leg Stance Lifts Leg/Unable to Hold Total Score Case Total Score (out of 56 points) 44 Case Impairment Rating 0% Impaired (Score 56) PT-OP-E Functional Tests Start: 09/14/23 11:19 Freq: Status: Active Protocol: Document 10/03/23 13:44 NM (Rec: 10/03/23 14:34 NM [id number]) Functional Tests 6 Minute Walk Test Distance RE: 379 ft, IE: 740 ft Device Used RE: 4ww, IE: 4ww Comments pain w/ ambulation but reduced w/ AD use Five Times Sit to Stand Test Score RE: did not attempt, IE: 28 sec Comments increased time; painful in hip PT-OP-F Manual Assessment Start: 09/14/23 11:19 Freq: Status: Active Protocol: Document 10/03/23 13:44 NM (Rec: 10/03/23 14:34 NM [id number]) Manual Assessments Soft Tissue Assessment Soft Tissue Mobility Assessment Tenderness along lateral hip and along anterior incision, slight tenderness posteriorly Joint Mobility Assessment Joint Mobility Assessment limited AROM of R hip due to precautions PT-OP-G Mobility & Gait Start: 09/14/23 11:19 Freq: Status: Active Protocol: Document 10/03/23 13:44 NM (Rec: 10/03/23 15:52 NM [id number]) OP Mobility Evaluation Bed Mobility Rolling close SBA Supine to and from Sit close SBA Transfers Sit to Stand without AD and minimal hand support from surface, close SBA OP Gait Assessment Gait Gait Assistance Required: Standby Assistance,Contact Guard Assist Assistive Devices Assistive Device Gait Belt,Straight Cane,Front Wheeled Walker Gait Deviations General Gait Pattern Antalgic Comments Gait Comments Limited RLE extension during stance. Demos spc use far to L side, moderately dependent for balance. Transition to FWW , which pt uses step to gait with more normal mechanics and demos better trunk stability PT-OP-H Neuro Start: 09/14/23 11:19 Freq: Status: Active Protocol: Document 10/03/23 13:44 NM (Rec: 10/03/23 14:34 NM [id number]) Sensation Evaluation Comments Summary Comments Decreased along R lateral thigh to mid thigh PT-OP-J Posture/Palpation/Skin Start: 09/14/23 11:19 Freq: Status: Active Protocol: Document 10/03/23 13:44 NM (Rec: 10/03/23 14:34 NM [id number]) Posture Evaluation Position Standing Head/C-Spine Posture Forward Head L-Spine Posture Increased Lordosis Weight Distribution Weight Shifted Left Hip Posture (L) Neutral,(R) Externally Rotated Knee Posture (L) Genu Valgus,(R) Genu Valgus Patellar Posture (L) Superior,(R) Superior Ankle/Foot Posture (L) Pronated,(R) Pronated Comments Posture Comments Demos less fwd flexed trunk posture post op and near equal WB on BLE in stance Palpation Assessment Location R hip Palpation Findings Soft Tissue Tightness, Tenderness Palpation Details 10/03/23: tenderness along anterior and lateral thigh, mild posterior hip tenderness, slight numbness along mid lateral thigh; scar covered by bandage and bruising present along anterior and lateral leg 09/14/23: tenderness to palpation along anterior, medial, and posterior hip muscles, hip joint Skin Assessment Incisional Assessment Incision Appearance/Comments Incision covered by bandage but no redness, drainage or other signs/symptoms of infection or DVT. Slight swelling at R ankle but less proximally PT-OP-K Range of Motion Start: 09/14/23 11:19 Freq: Status: Active Protocol: Document 12/04/23 13:00 NM (Rec: 12/04/23 14:12 NM [id number]) Hip Goniometric Range of Motion Hip Left Flexion w/Knee Flexed 105 Abduction 18 Internal Rotation 35 External Rotation 30 Right Flexion w/Knee Flexed 108 Abduction 20 Internal Rotation 25 External Rotation 25 Comments 09/14/23: 100 deg flex, 10 deg abd, 20 deg IR, 35 deg ER Re-evaluation: 75 deg flex, 5 deg abduction 11/03/23: 100 deg flex, 20 deg abd 12/04/23: 108 deg flex, 20 deg abd, 25 deg IR and ER PT-OP-M Strength Start: 09/14/23 11:19 Freq: Status: Active Protocol: Document 12/04/23 13:00 NM (Rec: 12/04/23 14:12 NM [id number]) Hip Strength Hip Manual Muscle Testing Left Flexion (L2) 4+ Good+ Extension (S1) 4+ Good+ Abduction 4+ Good+ Adduction 4+ Good+ External Rotation 4+ Good+ Internal Rotation 4+ Good+ Right Flexion (L2) 4 Good Extension (S1) 4 Good Abduction 4 Good Adduction 4 Good Comments 09/14/23: 4-/5 for all pre-op; pain with IR, flex 10/03/23: Not formally tested at re-evaluation due to precautions; however pt able to perform SLR to bring leg on /off plinth during transfer and heels slides 11/03/23: 4-/5 for all; hip ext not tested; hip abd tested in sitting 12/04/23: 4/5 for all PT-OP-Q Treatments Start: 09/14/23 11:19 Freq: Status: Active Protocol: Document 12/04/23 13:00 NM (Rec: 12/04/23 14:12 NM [id number]) Therapeutic Exercises Supine Exercises figure 4 stretch Supine Exercise Name trialed in PT Side bilateral Equipment Used 45 deg hip flex Reps/Minutes 2x30 ea Comments monitored for pain; reports stretch in glute but no pain Standing Exercises hip flexor stretch Side bilateral Equipment Used 2nd step on 6 step Reps/Minutes 60 ea step ups Standing Exercise Name 1. 13 MAP stairs, 2. 8 fwd step up Side bilateral Equipment Used 1. 1 rail support, 2. 1 finger support on 1 hand Reps/Minutes 1.1 set, 2. 15 ea Other Exercises lunge Other Exercise Name RLE forward, then slight hip ext when RLE behind Side bilateral Equipment Used 1 hand support on rail; on mat for future floor transfer Reps/Minutes 15 ea Comments no pain but hard; cued wider ATILIO, R knee flexion Therapeutic Activity Therapeutic Activity quadruped Name simulate gardening Reps/Minutes 5 minutes Comments 1. 4 pt crawling to simulate working in garden 2. quadruped <> short and tall kneel <> side sit transfers close SBA with prn CGA to steady 6 MWT Name for endurance and to demo normalized gait mechanics Reps/Minutes 1149 ft w/o AD Comments close SBA transfers Name Floor transfers Reps/Minutes 9 minutes Comments Performed on mat with BUE on chair in front of pt. Close SBA and CGA as needed to stabilize. Successfully performed via lunge to 1/2 kneel holding chair and via short kneel > quadruped with hip extended PT-OP-T Assessment and Plan Start: 09/14/23 11:19 Freq: Status: Active Protocol: Document 12/04/23 13:00 NM (Rec: 12/04/23 14:12 NM [id number]) Physical Therapy Assessment Goals Transfers Impairment pt wants to return to gardening Instrument Installer Goal (LTG) If appropriate per precautions , pt will be able to transfer to/from floor in a controlled manner for at least 5 reps in order to be able to return to gardening 12/04/23: last session, attempted transfers to floor using UE assist. Able to complete 2 transfers using BUE assist both via chair and 1/2 kneel in addition to from short kneel and quadruped with hips extended LTG Duration 12 weeks PROGRESSING 12/04/23 gait Impairment 6 MWT pre-op 704 ft with 4ww; post op with 379 ft FWW Impairment . Short Term Goal (STG) Pt will demonstrate normal gait mechanics without LRAD for household and short community distances in order to demonstrate return to PLOF and improved balance for gait/ activity tolerance 11/03/23: pt not using spc in home but still using spc in community as needed 11/14/23: pt reports that she is no longer using spc for community ambulation; demos improved gait mechanics STG Duration 6 weeks [facility] Goal (LTG) Pt will improve 6 MWT distance without LRAD to >1000 ft, if appropriate, in order to demonstrate improved gait mechanics, endurance, and pain management for community participation 12/04/23: 1149 ft w/o AD LTG Duration /12 weeks [facility] 12/04/23 weakness Impairment R hip strength 4-/5 pre-op, 3/ 5 post-op Impairment . Short Term Goal (STG) Pt will be able to perform 5x STS test in fewer than 15 seconds without increase in R hip pain (pre-op 28 sec) in order to demonstrate improved BLE strength for gait, transfers, and stairs 11/03/23: 4-/5 for all at hip; 14.8 sec w/o pain from standard ht STG Duration 6 weeks [facility] [employer] Installer Goal (LTG) Pt will improve R hip strength globally post-operatively to at least 4+/5 MMT in order to demonstrate improved strength for transfers, gait, stairs, and gardening 12/04/23: 4/5 for all LTG Duration 12 weeks PROGRESSING 12/04/23 Stairs Impairment has 15 stairs inside home, 3 steps outside home Impairment . Short Term Goal (STG) Pt will be able to perform at least 15 stairs using rails or AD IND post-operatively in order to demonstrate improved household mobility 11/03/23: 16 stairs with 1 rail assist for balance w/o pain STG Duration 4 weeks [facility] [employer] Installer Goal (LTG) Pt will have no limitation with stairs due to R hip pain in order to be able to perform all household stairs and stairs within community 12/04/23: No hip pain with stairs but requires 1 hand assist, cued to clear toes LTG Duration 12 weeks PROGRESSING 12/04/23 Hip ROM Impairment global limitations in hip flex , abd Impairment . Short Term Goal (STG) Pt will improve R hip flexion AROM to at least 95 deg in order to demonstrate improved ROM for swing phase of gait 11/03/23: 100 deg hip flexion; 20 deg hip abduction STG Duration 6 weeks [facility] Goal (LTG) Pt will demonstrate R hip flexion AROM to at least 110 deg in order to be able to garden 12/04/23: 108 deg hip flexion LTG Duration 12 weeks PROGRESSING Progress Towards Goals Progress Towards Goals Progressing Toward Goals Progress Comments Met 6 MWT goal Assessment Summary Assessment Pt tolerated session well. Successfully demonstrated floor transfers using 2 different methods; however, requires UE assistance. Addressed pt gardening body mechanics and transfers/ mobility while working on ground; pt more successful with quadruped position/tall and short kneeling. Educated on safety during all floor transfers and recommended that pt follow up with PCP for assessment if any further falls occur. Pt does not have any pain in R hip following small ground level fall over weekend. Continued with step ups and stairs, cueing only for foot clearance as pt has tendency to drag toes. Improved with reps. Pt would benefit from skilled PT for progressive R hip strengthening, body mechanics, transfer and balance training in order to improve overall safety and functional mobility for pt ADLs. Physical Therapy Plan Frequency and Duration Frequency of Treatment 2x/Week Duration of treatment (weeks) 12 Plan of Care Start Date 10/03/23 Plan of Care End Date 12/29/23 Therapeutic Interventions Therapeutic Interventions Balance Training,Gait Training ,Home Exercise Program,Joint Mobilizations,Manual Therapy, Neuromuscular Re-education, Orthotic/Prosthetic Management ,Patient/Caregiver Education, Self-Care/Home Management, Sensory Integration,Soft Tissue Mobilization,Taping, Therapeutic Activities, Therapeutic Exercises Modalities Cold Pack/Ice Massage,Electric Stimulation,Hot Packs, Ultrasound Next Visit Focus/Plan Next Note Type Treatment Note Next Visit Plan floor transfers, step up, add unstable set up. assess tolerance to stretching.work on functional strengthening ( picking up objects, lifting, carrying). glute and quad strength manual prn for swelling and pain management, soft tissue mobilization
--- NOTE | 2023-12-07 09:53 | PT.OTN ---
Current Diagnoses Unilateral primary osteoarthritis, right hip (12/07/23) Stiffness of right hip, not elsewhere classified (12/07/23) Other lack of coordination (12/07/23) Weakness (12/07/23) Physical Therapy Treatment Note PT-OP-A Visit Information Start: 09/14/23 11:19 Freq: Status: Active Protocol: Document 12/07/23 08:59 NM (Rec: 12/07/23 09:48 NM [id number]) Out-Patient Physical Therapy Visit Information Visit Information Visit Type Treatment Note Visit Note DOS 09/26/23 Visit Start Time 09:00 Visit Stop Time 09:44 Visit Number 18 Evaluation Information Evaluation Date 09/14/23 Precautions Precautions No more precautions post MD appointment 11/08/23 per patient DOS 09/26/23 PT-OP-B Current Condition Start: 09/14/23 11:19 Freq: Status: Active Protocol: Document 10/03/23 13:44 NM (Rec: 10/03/23 14:34 NM [id number]) Current Condition History of Current Condition Onset Date DOS 09/26/23 Current Complaints pain, poor mobility, gait, balance History of Current Condition 10/03/23: Pt presents following R [facility]AD[facility] on 09/26/23. Pt reports that she feels really good. She had no complications with surgery. She is still taking pain medications and has a large bruise along her L hip. She presents with spc in L hand. She spent the night in the hospital. Pt able to state hip precautions (no ER, no hip ext). She recently FWW. She has been sleeping upstairs , able to use stairs very well. Has been sleeping both in guest room and in her bed due to transition into bed because has to get into bed on L side. Has been icigin 2-3x/ day, taking acetaminophen/ ibuprofen 4-5x/day. She has follow up with Dr. Almazan next week. She has numbness along the R lateral leg, states getting better. Does not report any signs or symptoms of infection. She has been doing the HEP from hospital every day. 09/14/23: Pt presents with R hip pain. She will surgery in September 25. Planning on an anterior approach. Pt had lumbar surgery in January, which went well. Last visit with Dr. Honeycutt for pain in July, ok to T. Recently finished PT in June. 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 She had a collapsed R arch in the . She reports impairments in standing time, standing straight up, sleeping (wakes her up at night). She has been using 4ww since back surgery, only uses periodically. Plans to get FWW . Pt has 3 steps to enter home , rails on both sides; garage has 3 steps with a handle on the R side. She has 15 steps with rail on R side inside with a bedroom upstairs; she does have a room downstairs where she can sleep but still has to bathe upstairs. She has a bench in the bathtub but also has a shower chair. She lives with her who can physically help her. Treatment Goals Patient/Caregiver Goals gardening (hands and knees or sitting on ground) Prior Functional Status Baseline Function- ADL's Independent Baseline Function- Mobility Modified Independent Baseline Function- Gait ambulation 1 block w/o AD, better w/ 4WW Baseline Function- Recreation/Hobbies sewing, lifting sewing machine , swim 3x/wk Baseline Function- Other hip ER with dressing using clothing to help PT-OP-C Subjective Start: 09/14/23 11:19 Freq: Status: Active Protocol: Document 12/07/23 08:59 NM (Rec: 12/07/23 09:48 NM [id number]) OP-PT Subjective Patient Comments Patient Comments Pt reports just woke up because thought appt was later than current. Pt reports that she had no pain since last session, just fatigued. She got new shoes and had a new pad placed in her R foot, reports feels good. PT-OP-D Balance Start: 09/14/23 11:19 Freq: Status: Active Protocol: Document 10/23/23 08:03 AB (Rec: 10/23/23 13:01 AB [id number]) Case Balance Assessment Evaluation Sitting to Standing Ability Independent w/out Hands Unsupported Stance Safely- 2 minutes Sitting Unsupported, Feet on Floor Safely- 2 minutes Standing to Sitting Ability Safely, Minimal Hand Use Transfer Ability Safely, Minimal Hand Use Unsupported Stance- Eyes Closed Safely, 10 seconds Unsupported Stance- Eyes Open Independent, 1 minute Reaching Forward Standing Safely, 5 inches Pick- Up Object From Floor Requires Assistance Look Behind Shoulder - Standing Shifts Weight Well Turning 360 Degrees Turns Bilateral, < 4 secs Unsupported Stance, Alternating Feet on (I)- 8 Steps in 20 secs Stair Unsupported Tandem Stance Balance Lost- Step/Stand Unilateral Leg Stance Lifts Leg/Unable to Hold Total Score Case Total Score (out of 56 points) 44 Case Impairment Rating 0% Impaired (Score 56) PT-OP-E Functional Tests Start: 09/14/23 11:19 Freq: Status: Active Protocol: Document 10/03/23 13:44 NM (Rec: 10/03/23 14:34 NM [id number]) Functional Tests 6 Minute Walk Test Distance RE: 379 ft, IE: 740 ft Device Used RE: 4ww, IE: 4ww Comments pain w/ ambulation but reduced w/ AD use Five Times Sit to Stand Test Score RE: did not attempt, IE: 28 sec Comments increased time; painful in hip PT-OP-F Manual Assessment Start: 09/14/23 11:19 Freq: Status: Active Protocol: Document 10/03/23 13:44 NM (Rec: 10/03/23 14:34 NM [id number]) Manual Assessments Soft Tissue Assessment Soft Tissue Mobility Assessment Tenderness along lateral hip and along anterior incision, slight tenderness posteriorly Joint Mobility Assessment Joint Mobility Assessment limited AROM of R hip due to precautions PT-OP-G Mobility & Gait Start: 09/14/23 11:19 Freq: Status: Active Protocol: Document 10/03/23 13:44 NM (Rec: 10/03/23 15:52 NM [id number]) OP Mobility Evaluation Bed Mobility Rolling close SBA Supine to and from Sit close SBA Transfers Sit to Stand without AD and minimal hand support from surface, close SBA OP Gait Assessment Gait Gait Assistance Required: Standby Assistance,Contact Guard Assist Assistive Devices Assistive Device Gait Belt,Straight Cane,Front Wheeled Walker Gait Deviations General Gait Pattern Antalgic Comments Gait Comments Limited RLE extension during stance. Demos spc use far to L side, moderately dependent for balance. Transition to FWW , which pt uses step to gait with more normal mechanics and demos better trunk stability PT-OP-H Neuro Start: 09/14/23 11:19 Freq: Status: Active Protocol: Document 10/03/23 13:44 NM (Rec: 10/03/23 14:34 NM [id number]) Sensation Evaluation Comments Summary Comments Decreased along R lateral thigh to mid thigh PT-OP-J Posture/Palpation/Skin Start: 09/14/23 11:19 Freq: Status: Active Protocol: Document 10/03/23 13:44 NM (Rec: 10/03/23 14:34 NM [id number]) Posture Evaluation Position Standing Head/C-Spine Posture Forward Head L-Spine Posture Increased Lordosis Weight Distribution Weight Shifted Left Hip Posture (L) Neutral,(R) Externally Rotated Knee Posture (L) Genu Valgus,(R) Genu Valgus Patellar Posture (L) Superior,(R) Superior Ankle/Foot Posture (L) Pronated,(R) Pronated Comments Posture Comments Demos less fwd flexed trunk posture post op and near equal WB on BLE in stance Palpation Assessment Location R hip Palpation Findings Soft Tissue Tightness, Tenderness Palpation Details 10/03/23: tenderness along anterior and lateral thigh, mild posterior hip tenderness, slight numbness along mid lateral thigh; scar covered by bandage and bruising present along anterior and lateral leg 09/14/23: tenderness to palpation along anterior, medial, and posterior hip muscles, hip joint Skin Assessment Incisional Assessment Incision Appearance/Comments Incision covered by bandage but no redness, drainage or other signs/symptoms of infection or DVT. Slight swelling at R ankle but less proximally PT-OP-K Range of Motion Start: 09/14/23 11:19 Freq: Status: Active Protocol: Document 12/04/23 13:00 NM (Rec: 12/04/23 14:12 NM [id number]) Hip Goniometric Range of Motion Hip Left Flexion w/Knee Flexed 105 Abduction 18 Internal Rotation 35 External Rotation 30 Right Flexion w/Knee Flexed 108 Abduction 20 Internal Rotation 25 External Rotation 25 Comments 09/14/23: 100 deg flex, 10 deg abd, 20 deg IR, 35 deg ER Re-evaluation: 75 deg flex, 5 deg abduction 11/03/23: 100 deg flex, 20 deg abd 12/04/23: 108 deg flex, 20 deg abd, 25 deg IR and ER PT-OP-M Strength Start: 09/14/23 11:19 Freq: Status: Active Protocol: Document 12/04/23 13:00 NM (Rec: 12/04/23 14:12 NM [id number]) Hip Strength Hip Manual Muscle Testing Left Flexion (L2) 4+ Good+ Extension (S1) 4+ Good+ Abduction 4+ Good+ Adduction 4+ Good+ External Rotation 4+ Good+ Internal Rotation 4+ Good+ Right Flexion (L2) 4 Good Extension (S1) 4 Good Abduction 4 Good Adduction 4 Good Comments 09/14/23: 4-/5 for all pre-op; pain with IR, flex 10/03/23: Not formally tested at re-evaluation due to precautions; however pt able to perform SLR to bring leg on /off plinth during transfer and heels slides 11/03/23: 4-/5 for all; hip ext not tested; hip abd tested in sitting 12/04/23: 4/5 for all PT-OP-Q Treatments Start: 09/14/23 11:19 Freq: Status: Active Protocol: Document 12/07/23 08:59 NM (Rec: 12/07/23 09:48 NM [id number]) Gym Equipment Shuttle Recovery Unilateral Squats Details cued TKE, knee alignment with 2nd toe; performed BLE Resistance 50# (2 navy)- progress resistance next time Reps/Time 3x15 ea Therapeutic Exercises Standing Exercises march Side bilateral Resistance level 2 band at toes Equipment Used with 1 hand support for balance Reps/Minutes 3x10 (non alternating) Comments improved trunk control and hip /knee alignment calf stretch Standing Exercise Name 1. gastrocnemius, 2. soleus Side bilateral Equipment Used VANCE Reps/Minutes 60 ea Other Exercises lunge Other Exercise Name RLE forward, then slight hip ext when RLE behind Side bilateral Equipment Used 1 hand support on rail; on mat for future floor transfers Reps/Minutes 2x10 ea Comments no pain but challenging; cued more B knee flex Neuro Re-Education Treatment Balance Activities carioca Details close SBA Surface stable Equipment hands hovering over //bars Reps/Duration 2x10 ft ea direction Comments Improved balance with speed, good coordinaiton tandem Details hands hover over //bars Comments 1. stance, 2x30 2. walking, 2x10 ft Stance challenging for pt. Stepping balance improved with speed. Cued for abdominal brace and rhomboid facilitation. prn hands touching to stabilize uneven surface Details increased time required for all; prn CGA otherwise close SBA Comments 1. lateral step up on foam + 4 , 10 ea prn hand support with step down d/t balance 2. bosu step up, 10 ea 3. stance on bosu, 2x30 PT-OP-T Assessment and Plan Start: 09/14/23 11:19 Freq: Status: Active Protocol: Document 12/07/23 08:59 NM (Rec: 12/07/23 09:48 NM [id number]) Physical Therapy Assessment Goals Transfers Impairment pt wants to return to gardening Detention Goal (LTG) If appropriate per precautions , pt will be able to transfer to/from floor in a controlled manner for at least 5 reps in order to be able to return to gardening 12/04/23: last session, attempted transfers to floor using UE assist. Able to complete 2 transfers using BUE assist both via chair and 1/2 kneel in addition to from short kneel and quadruped with hips extended LTG Duration 12 weeks PROGRESSING 12/04/23 gait Impairment 6 MWT pre-op 704 ft with 4ww; post op with 379 ft FWW Impairment . Short Term Goal (STG) Pt will demonstrate normal gait mechanics without LRAD for household and short community distances in order to demonstrate return to PLOF and improved balance for gait/ activity tolerance 11/03/23: pt not using spc in home but still using spc in community as needed 11/14/23: pt reports that she is no longer using spc for community ambulation; demos improved gait mechanics STG Duration 6 weeks [employer] Goal (LTG) Pt will improve 6 MWT distance without LRAD to >1000 ft, if appropriate, in order to demonstrate improved gait mechanics, endurance, and pain management for community participation 12/04/23: 1149 ft w/o AD LTG Duration /12 weeks MET 12/04/23 weakness Impairment R hip strength 4-/5 pre-op, 3/ 5 post-op Impairment . Short Term Goal (STG) Pt will be able to perform 5x STS test in fewer than 15 seconds without increase in R hip pain (pre-op 28 sec) in order to demonstrate improved BLE strength for gait, transfers, and stairs 11/03/23: 4-/5 for all at hip; 14.8 sec w/o pain from standard ht STG Duration 6 weeks [employer] Goal (LTG) Pt will improve R hip strength globally post-operatively to at least 4+/5 MMT in order to demonstrate improved strength for transfers, gait, stairs, and gardening 12/04/23: 4/5 for all LTG Duration 12 weeks PROGRESSING 12/04/23 Stairs Impairment has 15 stairs inside home, 3 steps outside home Impairment . Short Term Goal (STG) Pt will be able to perform at least 15 stairs using rails or AD IND post-operatively in order to demonstrate improved household mobility 11/03/23: 16 stairs with 1 rail assist for balance w/o pain STG Duration 4 weeks [employer] Goal (LTG) Pt will have no limitation with stairs due to R hip pain in order to be able to perform all household stairs and stairs within community 12/04/23: No hip pain with stairs but requires 1 hand assist, cued to clear toes LTG Duration 12 weeks PROGRESSING 12/04/23 Hip ROM Impairment global limitations in hip flex , abd Impairment . Short Term Goal (STG) Pt will improve R hip flexion AROM to at least 95 deg in order to demonstrate improved ROM for swing phase of gait 11/03/23: 100 deg hip flexion; 20 deg hip abduction STG Duration 6 weeks [employer] Goal (LTG) Pt will demonstrate R hip flexion AROM to at least 110 deg in order to be able to garden 12/04/23: 108 deg hip flexion LTG Duration 12 weeks PROGRESSING Assessment Summary Assessment Good tolerance for increased reps on leg press for unilateral squat, fatiguing but not painful. Able to progress resistance for standing hip flexion and increased reps for lunges. Pt demos greater depth for lunges but still unable to achieve enough knee to move toward ground for floor transfers; more challenging with extension patterning with support on RLE. Pt requires less assistance with balance activities today. Challenged by narrow ATILIO and unstable surfaces, using hands prn to assist with maintaining stability. Pt's balance in narrow stance improves with speed and cueing for abdominal bracing. Pt would benefit from skilled PT for progressive BLE strengthening and balance training in order to improve ability to participate in ADLs, recreational activities, and decrease fall risk. Physical Therapy Plan Frequency and Duration Frequency of Treatment 2x/Week Duration of treatment (weeks) 12 Plan of Care Start Date 10/03/23 Plan of Care End Date 12/29/23 Therapeutic Interventions Therapeutic Interventions Balance Training,Gait Training ,Home Exercise Program,Joint Mobilizations,Manual Therapy, Neuromuscular Re-education, Orthotic/Prosthetic Management ,Patient/Caregiver Education, Self-Care/Home Management, Sensory Integration,Soft Tissue Mobilization,Taping, Therapeutic Activities, Therapeutic Exercises Modalities Cold Pack/Ice Massage,Electric Stimulation,Hot Packs, Ultrasound Next Visit Focus/Plan Next Note Type Treatment Note Next Visit Plan floor transfers 1x/wk, unstable step ups and balance on unstable surfaces + with SLS/narrow ATILIO. Add functional strengthening (picking up objects, lifting, carrying) with hurdles, squats. 8 step up. glute and quad strength manual prn for swelling and pain management, soft tissue mobilization
--- NOTE | 2023-12-12 10:39 | PT.OTN ---
Current Diagnoses Unilateral primary osteoarthritis, right hip (12/12/23) Stiffness of right hip, not elsewhere classified (12/12/23) Other lack of coordination (12/12/23) Weakness (12/12/23) Physical Therapy Treatment Note PT-OP-A Visit Information Start: 09/14/23 11:19 Freq: Status: Active Protocol: Document 12/12/23 09:04 NM (Rec: 12/12/23 09:48 NM [id number]) Out-Patient Physical Therapy Visit Information Visit Information Visit Type Treatment Note Visit Note DOS 09/26/23 Visit Start Time 09:04 Visit Stop Time 09:45 Visit Number 19 Evaluation Information Evaluation Date 09/14/23 Precautions Precautions No more precautions post MD appointment 11/08/23 per patient DOS 09/26/23 PT-OP-B Current Condition Start: 09/14/23 11:19 Freq: Status: Active Protocol: Document 10/03/23 13:44 NM (Rec: 10/03/23 14:34 NM [id number]) Current Condition History of Current Condition Onset Date DOS 09/26/23 Current Complaints pain, poor mobility, gait, balance History of Current Condition 10/03/23: Pt presents following R [facility]ADOR on 09/26/23. Pt reports that she feels really good. She had no complications with surgery. She is still taking pain medications and has a large bruise along her L hip. She presents with spc in L hand. She spent the night in the hospital. Pt able to state hip precautions (no ER, no hip ext). She recently FWW. She has been sleeping upstairs , able to use stairs very well. Has been sleeping both in guest room and in her bed due to transition into bed because has to get into bed on L side. Has been icigin 2-3x/ day, taking acetaminophen/ ibuprofen 4-5x/day. She has follow up with Dr. Almazan next week. She has numbness along the R lateral leg, states getting better. Does not report any signs or symptoms of infection. She has been doing the HEP from hospital every day. 09/14/23: Pt presents with R hip pain. She will surgery in September 25. Planning on an anterior approach. Pt had lumbar surgery in January, which went well. Last visit with Dr. Honeycutt for pain in July, ok to T. Recently finished PT in June. 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 She had a collapsed R arch in the . She reports impairments in standing time, standing straight up, sleeping (wakes her up at night). She has been using 4ww since back surgery, only uses periodically. Plans to get FWW . Pt has 3 steps to enter home , rails on both sides; garage has 3 steps with a handle on the R side. She has 15 steps with rail on R side inside with a bedroom upstairs; she does have a room downstairs where she can sleep but still has to bathe upstairs. She has a bench in the bathtub but also has a shower chair. She lives with her who can physically help her. Treatment Goals Patient/Caregiver Goals gardening (hands and knees or sitting on ground) Prior Functional Status Baseline Function- ADL's Independent Baseline Function- Mobility Modified Independent Baseline Function- Gait ambulation 1 block w/o AD, better w/ 4WW Baseline Function- Recreation/Hobbies sewing, lifting sewing machine , swim 3x/wk Baseline Function- Other hip ER with dressing using clothing to help PT-OP-C Subjective Start: 09/14/23 11:19 Freq: Status: Active Protocol: Document 12/12/23 09:04 NM (Rec: 12/12/23 09:48 NM [id number]) OP-PT Subjective Patient Comments Patient Comments Pt reports that she still has glute pain, reports always there. States no hip pain near surgical site. PT-OP-D Balance Start: 09/14/23 11:19 Freq: Status: Active Protocol: Document 10/23/23 08:03 AB (Rec: 10/23/23 13:01 AB [id number]) Case Balance Assessment Evaluation Sitting to Standing Ability Independent w/out Hands Unsupported Stance Safely- 2 minutes Sitting Unsupported, Feet on Floor Safely- 2 minutes Standing to Sitting Ability Safely, Minimal Hand Use Transfer Ability Safely, Minimal Hand Use Unsupported Stance- Eyes Closed Safely, 10 seconds Unsupported Stance- Eyes Open Independent, 1 minute Reaching Forward Standing Safely, 5 inches Pick- Up Object From Floor Requires Assistance Look Behind Shoulder - Standing Shifts Weight Well Turning 360 Degrees Turns Bilateral, < 4 secs Unsupported Stance, Alternating Feet on (I)- 8 Steps in 20 secs Stair Unsupported Tandem Stance Balance Lost- Step/Stand Unilateral Leg Stance Lifts Leg/Unable to Hold Total Score Case Total Score (out of 56 points) 44 Case Impairment Rating 0% Impaired (Score 56) PT-OP-E Functional Tests Start: 09/14/23 11:19 Freq: Status: Active Protocol: Document 10/03/23 13:44 NM (Rec: 10/03/23 14:34 NM [id number]) Functional Tests 6 Minute Walk Test Distance RE: 379 ft, IE: 740 ft Device Used RE: 4ww, IE: 4ww Comments pain w/ ambulation but reduced w/ AD use Five Times Sit to Stand Test Score RE: did not attempt, IE: 28 sec Comments increased time; painful in hip PT-OP-F Manual Assessment Start: 09/14/23 11:19 Freq: Status: Active Protocol: Document 10/03/23 13:44 NM (Rec: 10/03/23 14:34 NM [id number]) Manual Assessments Soft Tissue Assessment Soft Tissue Mobility Assessment Tenderness along lateral hip and along anterior incision, slight tenderness posteriorly Joint Mobility Assessment Joint Mobility Assessment limited AROM of R hip due to precautions PT-OP-G Mobility & Gait Start: 09/14/23 11:19 Freq: Status: Active Protocol: Document 10/03/23 13:44 NM (Rec: 10/03/23 15:52 NM [id number]) OP Mobility Evaluation Bed Mobility Rolling close SBA Supine to and from Sit close SBA Transfers Sit to Stand without AD and minimal hand support from surface, close SBA OP Gait Assessment Gait Gait Assistance Required: Standby Assistance,Contact Guard Assist Assistive Devices Assistive Device Gait Belt,Straight Cane,Front Wheeled Walker Gait Deviations General Gait Pattern Antalgic Comments Gait Comments Limited RLE extension during stance. Demos spc use far to L side, moderately dependent for balance. Transition to FWW , which pt uses step to gait with more normal mechanics and demos better trunk stability PT-OP-H Neuro Start: 09/14/23 11:19 Freq: Status: Active Protocol: Document 10/03/23 13:44 NM (Rec: 10/03/23 14:34 NM [id number]) Sensation Evaluation Comments Summary Comments Decreased along R lateral thigh to mid thigh PT-OP-J Posture/Palpation/Skin Start: 09/14/23 11:19 Freq: Status: Active Protocol: Document 10/03/23 13:44 NM (Rec: 10/03/23 14:34 NM [id number]) Posture Evaluation Position Standing Head/C-Spine Posture Forward Head L-Spine Posture Increased Lordosis Weight Distribution Weight Shifted Left Hip Posture (L) Neutral,(R) Externally Rotated Knee Posture (L) Genu Valgus,(R) Genu Valgus Patellar Posture (L) Superior,(R) Superior Ankle/Foot Posture (L) Pronated,(R) Pronated Comments Posture Comments Demos less fwd flexed trunk posture post op and near equal WB on BLE in stance Palpation Assessment Location R hip Palpation Findings Soft Tissue Tightness, Tenderness Palpation Details 10/03/23: tenderness along anterior and lateral thigh, mild posterior hip tenderness, slight numbness along mid lateral thigh; scar covered by bandage and bruising present along anterior and lateral leg 09/14/23: tenderness to palpation along anterior, medial, and posterior hip muscles, hip joint Skin Assessment Incisional Assessment Incision Appearance/Comments Incision covered by bandage but no redness, drainage or other signs/symptoms of infection or DVT. Slight swelling at R ankle but less proximally PT-OP-K Range of Motion Start: 09/14/23 11:19 Freq: Status: Active Protocol: Document 12/04/23 13:00 NM (Rec: 12/04/23 14:12 NM [id number]) Hip Goniometric Range of Motion Hip Left Flexion w/Knee Flexed 105 Abduction 18 Internal Rotation 35 External Rotation 30 Right Flexion w/Knee Flexed 108 Abduction 20 Internal Rotation 25 External Rotation 25 Comments 09/14/23: 100 deg flex, 10 deg abd, 20 deg IR, 35 deg ER Re-evaluation: 75 deg flex, 5 deg abduction 11/03/23: 100 deg flex, 20 deg abd 12/04/23: 108 deg flex, 20 deg abd, 25 deg IR and ER PT-OP-M Strength Start: 09/14/23 11:19 Freq: Status: Active Protocol: Document 12/04/23 13:00 NM (Rec: 12/04/23 14:12 NM [id number]) Hip Strength Hip Manual Muscle Testing Left Flexion (L2) 4+ Good+ Extension (S1) 4+ Good+ Abduction 4+ Good+ Adduction 4+ Good+ External Rotation 4+ Good+ Internal Rotation 4+ Good+ Right Flexion (L2) 4 Good Extension (S1) 4 Good Abduction 4 Good Adduction 4 Good Comments 09/14/23: 4-/5 for all pre-op; pain with IR, flex 10/03/23: Not formally tested at re-evaluation due to precautions; however pt able to perform SLR to bring leg on /off plinth during transfer and heels slides 11/03/23: 4-/5 for all; hip ext not tested; hip abd tested in sitting 12/04/23: 4/5 for all PT-OP-Q Treatments Start: 09/14/23 11:19 Freq: Status: Active Protocol: Document 12/12/23 09:04 NM (Rec: 12/12/23 09:48 NM [id number]) Therapeutic Exercises Standing Exercises step ups Standing Exercise Name 8: 1. fwd step up, 2. lateral step up Side bilateral Reps/Minutes 1. 2x10 ea, alternating; 2. 10 ea Comments improved trunk posture, no hand support Manual Therapy Treatment Soft Tissue Mobilization R hip Body Location glute, QL, low back at iliac crest Mobilization Type Rolling,Sustained Pressure Intensity/Depth Moderate Body Position Sidelying Comments For pain symptoms at posterior hip, reduced with soft tissue mobilization but not resolved Neuro Re-Education Treatment Balance Activities bosu Surface unstable, blue dome up Reps/Duration 10 ea Comments fwd stepping, min A to steady Cued for foot placement to correct WS, core bracing, demos catching foot x4 times w /o LOB. L more challenging than R obstacle course Details hurdles and foam pads Comments 1. stepping on foam, over hurdles x4 reps x10 ft ea direction 2. squats on large foam pads, intermittent stepping w. hurdles and small foam pads w/ reciprocal 3. lateral w/ squats prn hand support for balance correction; CGA carioca Details close SBA Surface stable Equipment no UE support Reps/Duration 2x10 ft ea direction Comments Improved balance with speed, good coordinaiton tandem stepping Equipment no UE support Reps/Duration 10 feet x 2 reps Comments CGA to steady 1. fwd 2. 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 Able to complete 2 transfers using BUE assist both via chair and 1/2 kneel in addition to from short kneel and quadruped with hips extended LTG Duration 12 weeks PROGRESSING 12/04/23 gait Impairment 6 MWT pre-op 704 ft with 4ww; post op with 379 ft FWW Impairment . Short Term Goal (STG) Pt will demonstrate normal gait mechanics without LRAD for household and short community distances in order to demonstrate return to PLOF and improved balance for gait/ activity tolerance 11/03/23: pt not using spc in home but still using spc in community as needed 11/14/23: pt reports that she is no longer using spc for community ambulation; demos improved gait mechanics STG Duration 6 weeks MET [employer] Goal (LTG) Pt will improve 6 MWT distance without LRAD to >1000 ft, if appropriate, in order to demonstrate improved gait mechanics, endurance, and pain management for community participation 12/04/23: 1149 ft w/o AD LTG Duration /12 weeks MET 12/04/23 weakness Impairment R hip strength 4-/5 pre-op, 3/ 5 post-op Impairment . Short Term Goal (STG) Pt will be able to perform 5x STS test in fewer than 15 seconds without increase in R hip pain (pre-op 28 sec) in order to demonstrate improved BLE strength for gait, transfers, and stairs 11/03/23: 4-/5 for all at hip; 14.8 sec w/o pain from standard ht STG Duration 6 weeks MET [employer] Goal (LTG) Pt will improve R hip strength globally post-operatively to at least 4+/5 MMT in order to demonstrate improved strength for transfers, gait, stairs, and gardening 12/04/23: 4/5 for all LTG Duration 12 weeks PROGRESSING 12/04/23 Stairs Impairment has 15 stairs inside home, 3 steps outside home Impairment . Short Term Goal (STG) Pt will be able to perform at least 15 stairs using rails or AD IND post-operatively in order to demonstrate improved household mobility 11/03/23: 16 stairs with 1 rail assist for balance w/o pain STG Duration 4 weeks MET [employer] Goal (LTG) Pt will have no limitation with stairs due to R hip pain in order to be able to perform all household stairs and stairs within community 12/04/23: No hip pain with stairs but requires 1 hand assist, cued to clear toes LTG Duration 12 weeks PROGRESSING 12/04/23 Hip ROM Impairment global limitations in hip flex , abd Impairment . Short Term Goal (STG) Pt will improve R hip flexion AROM to at least 95 deg in order to demonstrate improved ROM for swing phase of gait 11/03/23: 100 deg hip flexion; 20 deg hip abduction STG Duration 6 weeks MET Care Home Goal (LTG) Pt will demonstrate R hip flexion AROM to at least 110 deg in order to be able to garden 12/04/23: 108 deg hip flexion LTG Duration 12 weeks PROGRESSING Assessment Summary Assessment Pt tolerated session well. Demos improved trunk posture and glute strength for ability to step up on 8 step with less support. Lateral plane still most challenging, especially for R leg. Cueing required for posture, prn CGA to steady without LOB for step up. Still demos glute/quad weakness on RLE compared to LLE. Requires prn hand support to maintain balance for reactionary balance with dynamic stepping on unstable surface. Finished session with manual treatment to posterior hip for pain management, possible referral from low back, will be assessed in further sessions. Pt would benefit from skilled PT for progressive BLE strengthening in order to increase R hip strength to comparable to LLE for ADLs/IADLs and mobility. Physical Therapy Plan Frequency and Duration Frequency of Treatment 2x/Week Duration of treatment (weeks) 12 Plan of Care Start Date 10/03/23 Plan of Care End Date 12/29/23 Therapeutic Interventions Therapeutic Interventions Balance Training,Gait Training ,Home Exercise Program,Joint Mobilizations,Manual Therapy, Neuromuscular Re-education, Orthotic/Prosthetic Management ,Patient/Caregiver Education, Self-Care/Home Management, Sensory Integration,Soft Tissue Mobilization,Taping, Therapeutic Activities, Therapeutic Exercises Modalities Cold Pack/Ice Massage,Electric Stimulation,Hot Packs, Ultrasound Next Visit Focus/Plan Next Note Type Treatment Note Next Visit Plan bungee stepping, unstable surfaces. floor transfers 1x/ wk, unstable step ups and balance on unstable surfaces + with SLS/narrow ATILIO. Add functional strengthening ( picking up objects, lifting, carrying) with hurdles, squats . 8 step up angela lateral motion. glute and quad strength manual prn for swelling and pain management, soft tissue mobilization
--- NOTE | 2023-12-14 09:45 | PT.OTN ---
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 Pt reports that she feels really good. She had no complications with surgery. She is still taking pain medications and has a large bruise along her L hip. She presents with spc in L hand. She spent the night in the hospital. Pt able to state hip precautions (no ER, no hip ext). She recently FWW. She has been sleeping upstairs , able to use stairs very well. Has been sleeping both in guest room and in her bed due to transition into bed because has to get into bed on L side. Has been icigin 2-3x/ day, taking acetaminophen/ ibuprofen 4-5x/day. She has follow up with Dr. Almazan next week. She has numbness along the R lateral leg, states getting better. Does not report any signs or symptoms of infection. She has been doing the HEP from hospital every day. 09/14/23: Pt presents with R hip pain. She will surgery in September 25. Planning on an anterior approach. Pt had lumbar surgery in January, which went well. Last visit with Dr. Honeycutt for pain in July, ok to BLT. Recently finished PT in June. 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 She had a collapsed R arch in the . She reports impairments in standing time, standing straight up, sleeping (wakes her up at night). She has been using 4ww since back surgery, only uses periodically. Plans to get FWW . Pt has 3 steps to enter home , rails on both sides; garage has 3 steps with a handle on the R side. She has 15 steps with rail on R side inside with a bedroom upstairs; she does have a room downstairs where she can sleep but still has to bathe upstairs. She has a bench in the bathtub but also has a shower chair. She lives with her who can physically help her. Treatment Goals Patient/Caregiver Goals gardening (hands and knees or sitting on ground) Prior Functional Status Baseline Function- ADL's Independent Baseline Function- Mobility Modified Independent Baseline Function- Gait ambulation 1 block w/o AD, better w/ 4WW Baseline Function- Recreation/Hobbies sewing, lifting sewing machine , swim 3x/wk Baseline Function- Other hip ER with dressing using clothing to help PT-OP-C Subjective Start: 09/14/23 11:19 Freq: Status: Active Protocol: Document 12/14/23 09:05 SP (Rec: 12/14/23 09:52 SP [id number]) OP-PT Subjective Patient Comments Patient Comments Pt reports has been active swimming 3 days/week, walking 2 days/week and HEP intends to performing 3days/week. Her R hip litttle sore at arrival but feels exercises are helping strength and mobility. PT-OP-D Balance Start: 09/14/23 11:19 Freq: Status: Active Protocol: Document 10/23/23 08:03 AB (Rec: 10/23/23 13:01 AB [id number]) Case Balance Assessment Evaluation Sitting to Standing Ability Independent w/out Hands Unsupported Stance Safely- 2 minutes Sitting Unsupported, Feet on Floor Safely- 2 minutes Standing to Sitting Ability Safely, Minimal Hand Use Transfer Ability Safely, Minimal Hand Use Unsupported Stance- Eyes Closed Safely, 10 seconds Unsupported Stance- Eyes Open Independent, 1 minute Reaching Forward Standing Safely, 5 inches Pick- Up Object From Floor Requires Assistance Look Behind Shoulder - Standing Shifts Weight Well Turning 360 Degrees Turns Bilateral, < 4 secs Unsupported Stance, Alternating Feet on (I)- 8 Steps in 20 secs Stair Unsupported Tandem Stance Balance Lost- Step/Stand Unilateral Leg Stance Lifts Leg/Unable to Hold Total Score Case Total Score (out of 56 points) 44 Case Impairment Rating 0% Impaired (Score 56) PT-OP-E Functional Tests Start: 09/14/23 11:19 Freq: Status: Active Protocol: Document 10/03/23 13:44 NM (Rec: 10/03/23 14:34 NM [id number]) Functional Tests 6 Minute Walk Test Distance RE: 379 ft, IE: 740 ft Device Used RE: 4ww, IE: 4ww Comments pain w/ ambulation but reduced w/ AD use Five Times Sit to Stand Test Score RE: did not attempt, IE: 28 sec Comments increased time; painful in hip PT-OP-F Manual Assessment Start: 09/14/23 11:19 Freq: Status: Active Protocol: Document 10/03/23 13:44 NM (Rec: 10/03/23 14:34 NM [id number]) Manual Assessments Soft Tissue Assessment Soft Tissue Mobility Assessment Tenderness along lateral hip and along anterior incision, slight tenderness posteriorly Joint Mobility Assessment Joint Mobility Assessment limited AROM of R hip due to precautions PT-OP-G Mobility & Gait Start: 09/14/23 11:19 Freq: Status: Active Protocol: Document 10/03/23 13:44 NM (Rec: 10/03/23 15:52 NM [id number]) OP Mobility Evaluation Bed Mobility Rolling close SBA Supine to and from Sit close SBA Transfers Sit to Stand without AD and minimal hand support from surface, close SBA OP Gait Assessment Gait Gait Assistance Required: Standby Assistance,Contact Guard Assist Assistive Devices Assistive Device Gait Belt,Straight Cane,Front Wheeled Walker Gait Deviations General Gait Pattern Antalgic Comments Gait Comments Limited RLE extension during stance. Demos spc use far to L side, moderately dependent for balance. Transition to FWW , which pt uses step to gait with more normal mechanics and demos better trunk stability PT-OP-H Neuro Start: 09/14/23 11:19 Freq: Status: Active Protocol: Document 10/03/23 13:44 NM (Rec: 10/03/23 14:34 NM [id number]) Sensation Evaluation Comments Summary Comments Decreased along R lateral thigh to mid thigh PT-OP-J Posture/Palpation/Skin Start: 09/14/23 11:19 Freq: Status: Active Protocol: Document 10/03/23 13:44 NM (Rec: 10/03/23 14:34 NM [id number]) Posture Evaluation Position Standing Head/C-Spine Posture Forward Head L-Spine Posture Increased Lordosis Weight Distribution Weight Shifted Left Hip Posture (L) Neutral,(R) Externally Rotated Knee Posture (L) Genu Valgus,(R) Genu Valgus Patellar Posture (L) Superior,(R) Superior Ankle/Foot Posture (L) Pronated,(R) Pronated Comments Posture Comments Demos less fwd flexed trunk posture post op and near equal WB on BLE in stance Palpation Assessment Location R hip Palpation Findings Soft Tissue Tightness, Tenderness Palpation Details 10/03/23: tenderness along anterior and lateral thigh, mild posterior hip tenderness, slight numbness along mid lateral thigh; scar covered by bandage and bruising present along anterior and lateral leg 09/14/23: tenderness to palpation along anterior, medial, and posterior hip muscles, hip joint Skin Assessment Incisional Assessment Incision Appearance/Comments Incision covered by bandage but no redness, drainage or other signs/symptoms of infection or DVT. Slight swelling at R ankle but less proximally PT-OP-K Range of Motion Start: 09/14/23 11:19 Freq: Status: Active Protocol: Document 12/04/23 13:00 NM (Rec: 12/04/23 14:12 NM [id number]) Hip Goniometric Range of Motion Hip Left Flexion w/Knee Flexed 105 Abduction 18 Internal Rotation 35 External Rotation 30 Right Flexion w/Knee Flexed 108 Abduction 20 Internal Rotation 25 External Rotation 25 Comments 09/14/23: 100 deg flex, 10 deg abd, 20 deg IR, 35 deg ER Re-evaluation: 75 deg flex, 5 deg abduction 11/03/23: 100 deg flex, 20 deg abd 12/04/23: 108 deg flex, 20 deg abd, 25 deg IR and ER PT-OP-M Strength Start: 09/14/23 11:19 Freq: Status: Active Protocol: Document 12/04/23 13:00 NM (Rec: 12/04/23 14:12 NM [id number]) Hip Strength Hip Manual Muscle Testing Left Flexion (L2) 4+ Good+ Extension (S1) 4+ Good+ Abduction 4+ Good+ Adduction 4+ Good+ External Rotation 4+ Good+ Internal Rotation 4+ Good+ Right Flexion (L2) 4 Good Extension (S1) 4 Good Abduction 4 Good Adduction 4 Good Comments 09/14/23: 4-/5 for all pre-op; pain with IR, flex 10/03/23: Not formally tested at re-evaluation due to precautions; however pt able to perform SLR to bring leg on /off plinth during transfer and heels slides 11/03/23: 4-/5 for all; hip ext not tested; hip abd tested in sitting 12/04/23: 4/5 for all PT-OP-Q Treatments Start: 09/14/23 11:19 Freq: Status: Active Protocol: Document 12/14/23 09:05 SP (Rec: 12/14/23 09:52 SP [id number]) Gym Equipment Sport Cord Red Exercise Details f/b/lateral stepping Cord/Resistance red Reps/Duration 8 reps each direction Comments cues for core and tall over stance LE for improved eccentric stepping control, 5% A as needed initially during side stepping direction. Therapeutic Exercises Sidelying Exercises clams Sidelying Exercise Name continued in PT to promote ER range Side right Equipment Used kickstand top arm on table Reps/Minutes 2x10 Comments good hip positioning; edu comfortable range; pain free Standing Exercises step ups Standing Exercise Name 8: 1. fwd step up, 2. lateral step up Side bilateral Equipment Used no to light contact last few reps rail support for balance Reps/Minutes 1. 15 reps repeated 2. 12 ea Comments improved trunk posture over stance leg. less momentum with light contact Manual Therapy Treatment Consent Patient gave verbal consent for manual Yes treatment Soft Tissue Mobilization scar mobility Body Location R anterior hip. R hip Body Location R glut med, piriformis, TFL Mobilization Type Rolling,Sustained Pressure Intensity/Depth Moderate Body Position L Sidelying Comments reports decreased tension and discomfort post manual, feedback for comfort pressure PT-OP-T Assessment and Plan Start: 09/14/23 11:19 Freq: Status: Active Protocol: Document 12/14/23 09:05 SP (Rec: 12/14/23 09:52 SP [id number]) Physical Therapy Assessment Goals Transfers Impairment pt wants to return to gardening Group Home Goal (LTG) If appropriate per precautions , pt will be able to transfer to/from floor in a controlled manner for at least 5 reps in order to be able to return to gardening 12/04/23: last session, attempted transfers to floor using UE assist. Able to complete 2 transfers using BUE assist both via chair and 1/2 kneel in addition to from short kneel and quadruped with hips extended LTG Duration 12 weeks PROGRESSING 12/04/23 gait Impairment 6 MWT pre-op 704 ft with 4ww; post op with 379 ft FWW Impairment . Short Term Goal (STG) Pt will demonstrate normal gait mechanics without LRAD for household and short community distances in order to demonstrate return to PLOF and improved balance for gait/ activity tolerance 11/03/23: pt not using spc in home but still using spc in community as needed 11/14/23: pt reports that she is no longer using spc for community ambulation; demos improved gait mechanics STG Duration 6 weeks MET Group Home Goal (LTG) Pt will improve 6 MWT distance without LRAD to >1000 ft, if appropriate, in order to demonstrate improved gait mechanics, endurance, and pain management for community participation 12/04/23: 1149 ft w/o AD LTG Duration /12 weeks MET 12/04/23 weakness Impairment R hip strength 4-/5 pre-op, 3/ 5 post-op Impairment . Short Term Goal (STG) Pt will be able to perform 5x STS test in fewer than 15 seconds without increase in R hip pain (pre-op 28 sec) in order to demonstrate improved BLE strength for gait, transfers, and stairs 11/03/23: 4-/5 for all at hip; 14.8 sec w/o pain from standard ht STG Duration 6 weeks MET Navigation Officer Goal (LTG) Pt will improve R hip strength globally post-operatively to at least 4+/5 MMT in order to demonstrate improved strength for transfers, gait, stairs, and gardening 12/04/23: 4/5 for all LTG Duration 12 weeks PROGRESSING 12/04/23 Stairs Impairment has 15 stairs inside home, 3 steps outside home Impairment . Short Term Goal (STG) Pt will be able to perform at least 15 stairs using rails or AD IND post-operatively in order to demonstrate improved household mobility 11/03/23: 16 stairs with 1 rail assist for balance w/o pain STG Duration 4 weeks MET Navigation Officer Goal (LTG) Pt will have no limitation with stairs due to R hip pain in order to be able to perform all household stairs and stairs within community 12/04/23: No hip pain with stairs but requires 1 hand assist, cued to clear toes LTG Duration 12 weeks PROGRESSING 12/04/23 Hip ROM Impairment global limitations in hip flex , abd Impairment . Short Term Goal (STG) Pt will improve R hip flexion AROM to at least 95 deg in order to demonstrate improved ROM for swing phase of gait 11/03/23: 100 deg hip flexion; 20 deg hip abduction STG Duration 6 weeks MET Group Home Goal (LTG) Pt will demonstrate R hip flexion AROM to at least 110 deg in order to be able to garden 12/04/23: 108 deg hip flexion LTG Duration 12 weeks PROGRESSING Assessment Summary Assessment Pt tolerated session well. Utilized contact rail today for stability support with less use momentum during step ups, cued core/scap complex /c posturing to allow COG over ATILIO awareness, carried over to sport cord resisted stepping initiated today, min A as needed with cuing for eccentric control return. Pt reports no pain end tx. Discussed self scar mobility at home. Physical Therapy Plan Frequency and Duration Frequency of Treatment 2x/Week Duration of treatment (weeks) 12 Plan of Care Start Date 10/03/23 Plan of Care End Date 12/29/23 Therapeutic Interventions Therapeutic Interventions Balance Training,Gait Training ,Home Exercise Program,Joint Mobilizations,Manual Therapy, Neuromuscular Re-education, Orthotic/Prosthetic Management ,Patient/Caregiver Education, Self-Care/Home Management, Sensory Integration,Soft Tissue Mobilization,Taping, Therapeutic Activities, Therapeutic Exercises Modalities Cold Pack/Ice Massage,Electric Stimulation,Hot Packs, Ultrasound Next Visit Focus/Plan Next Note Type Treatment Note Next Visit Plan Continue bungee stepping, unstable surfaces. floor transfers 1x/wk, unstable step ups if tolerated and balance on unstable surfaces + with SLS/narrow ATILIO. Add functional strengthening (picking up objects, lifting, carrying) with hurdles, squats. 8 step up angela lateral motion. glute and quad strength manual prn for swelling and pain management, soft tissue mobilization
--- NOTE | 2023-12-19 09:45 | PT.OTN ---
Current Diagnoses Unilateral primary osteoarthritis, right hip (12/19/23) Stiffness of right hip, not elsewhere classified (12/19/23) Other lack of coordination (12/19/23) Weakness (12/19/23) Physical Therapy Treatment Note PT-OP-A Visit Information Start: 09/14/23 11:19 Freq: Status: Active Protocol: Document 12/19/23 09:07 SP (Rec: 12/19/23 09:50 SP [id number]) Out-Patient Physical Therapy Visit Information Visit Information Visit Type Treatment Note Visit Note DOS 09/26/23 Visit Start Time 09:07 Visit Stop Time 09:45 Visit Number 21 Number of WILDLIFE SCIENCE PROFESSOR Visits 2 Evaluation Information Evaluation Date 09/14/23 Precautions Precautions No more precautions post MD appointment 11/08/23 per patient DOS 09/26/23 PT-OP-B Current Condition Start: 09/14/23 11:19 Freq: Status: Active Protocol: Document 10/03/23 13:44 NM (Rec: 10/03/23 14:34 NM [id number]) Current Condition History of Current Condition Onset Date DOS 09/26/23 Current Complaints pain, poor mobility, gait, balance History of Current Condition 10/03/23: Pt presents following R AMADOR on 09/26/23. Pt reports that she feels really good. She had no complications with surgery. She is still taking pain medications and has a large bruise along her L hip. She presents with spc in L hand. She spent the night in the hospital. Pt able to state hip precautions (no ER, no hip ext). She recently FWW. She has been sleeping upstairs , able to use stairs very well. Has been sleeping both in guest room and in her bed due to transition into bed because has to get into bed on L side. Has been icigin 2-3x/ day, taking acetaminophen/ ibuprofen 4-5x/day. She has follow up with Dr. Almazan next week. She has numbness along the R lateral leg, states getting better. Does not report any signs or symptoms of infection. She has been doing the HEP from hospital every day. 09/14/23: Pt presents with R hip pain. She will surgery in September 25. Planning on an anterior approach. Pt had lumbar surgery in January, which went well. Last visit with Dr. Honeycutt for pain in July, ok to BLT. Recently finished PT in June. 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 She had a collapsed R arch in the . She reports impairments in standing time, standing straight up, sleeping (wakes her up at night). She has been using 4ww since back surgery, only uses periodically. Plans to get FWW . Pt has 3 steps to enter home , rails on both sides; garage has 3 steps with a handle on the R side. She has 15 steps with rail on R side inside with a bedroom upstairs; she does have a room downstairs where she can sleep but still has to bathe upstairs. She has a bench in the bathtub but also has a shower chair. She lives with her who can physically help her. Treatment Goals Patient/Caregiver Goals gardening (hands and knees or sitting on ground) Prior Functional Status Baseline Function- ADL's Independent Baseline Function- Mobility Modified Independent Baseline Function- Gait ambulation 1 block w/o AD, better w/ 4WW Baseline Function- Recreation/Hobbies sewing, lifting sewing machine , swim 3x/wk Baseline Function- Other hip ER with dressing using clothing to help PT-OP-C Subjective Start: 09/14/23 11:19 Freq: Status: Active Protocol: Document 12/19/23 09:07 SP (Rec: 12/19/23 09:50 SP [id number]) OP-PT Subjective Patient Comments Patient Comments Pt reports wasn't feeling as well over the weekend, didn't do as much exercises but did get in pool: tread water, water walk, light jog stretching, breast and back stroke. Getting easier for legs breast stroke motion. She states doesn't use belt for support. She is aware Caity James, staff/WILDLIFE SCIENCE PROFESSOR at the pool for questions and knows can do 1:1 if needed with her. PT-OP-D Balance Start: 09/14/23 11:19 Freq: Status: Active Protocol: Document 10/23/23 08:03 AB (Rec: 10/23/23 13:01 AB [id number]) Case Balance Assessment Evaluation Sitting to Standing Ability Independent w/out Hands Unsupported Stance Safely- 2 minutes Sitting Unsupported, Feet on Floor Safely- 2 minutes Standing to Sitting Ability Safely, Minimal Hand Use Transfer Ability Safely, Minimal Hand Use Unsupported Stance- Eyes Closed Safely, 10 seconds Unsupported Stance- Eyes Open Independent, 1 minute Reaching Forward Standing Safely, 5 inches Pick- Up Object From Floor Requires Assistance Look Behind Shoulder - Standing Shifts Weight Well Turning 360 Degrees Turns Bilateral, < 4 secs Unsupported Stance, Alternating Feet on (I)- 8 Steps in 20 secs Stair Unsupported Tandem Stance Balance Lost- Step/Stand Unilateral Leg Stance Lifts Leg/Unable to Hold Total Score Case Total Score (out of 56 points) 44 Case Impairment Rating 0% Impaired (Score 56) PT-OP-E Functional Tests Start: 09/14/23 11:19 Freq: Status: Active Protocol: Document 10/03/23 13:44 NM (Rec: 10/03/23 14:34 NM [id number]) Functional Tests 6 Minute Walk Test Distance RE: 379 ft, IE: 740 ft Device Used RE: 4ww, IE: 4ww Comments pain w/ ambulation but reduced w/ AD use Five Times Sit to Stand Test Score RE: did not attempt, IE: 28 sec Comments increased time; painful in hip PT-OP-F Manual Assessment Start: 09/14/23 11:19 Freq: Status: Active Protocol: Document 10/03/23 13:44 NM (Rec: 10/03/23 14:34 NM [id number]) Manual Assessments Soft Tissue Assessment Soft Tissue Mobility Assessment Tenderness along lateral hip and along anterior incision, slight tenderness posteriorly Joint Mobility Assessment Joint Mobility Assessment limited AROM of R hip due to precautions PT-OP-G Mobility & Gait Start: 09/14/23 11:19 Freq: Status: Active Protocol: Document 10/03/23 13:44 NM (Rec: 10/03/23 15:52 NM [id number]) OP Mobility Evaluation Bed Mobility Rolling close SBA Supine to and from Sit close SBA Transfers Sit to Stand without AD and minimal hand support from surface, close SBA OP Gait Assessment Gait Gait Assistance Required: Standby Assistance,Contact Guard Assist Assistive Devices Assistive Device Gait Belt,Straight Cane,Front Wheeled Walker Gait Deviations General Gait Pattern Antalgic Comments Gait Comments Limited RLE extension during stance. Demos spc use far to L side, moderately dependent for balance. Transition to FWW , which pt uses step to gait with more normal mechanics and demos better trunk stability PT-OP-H Neuro Start: 09/14/23 11:19 Freq: Status: Active Protocol: Document 10/03/23 13:44 NM (Rec: 10/03/23 14:34 NM [id number]) Sensation Evaluation Comments Summary Comments Decreased along R lateral thigh to mid thigh PT-OP-J Posture/Palpation/Skin Start: 09/14/23 11:19 Freq: Status: Active Protocol: Document 10/03/23 13:44 NM (Rec: 10/03/23 14:34 NM [id number]) Posture Evaluation Position Standing Head/C-Spine Posture Forward Head L-Spine Posture Increased Lordosis Weight Distribution Weight Shifted Left Hip Posture (L) Neutral,(R) Externally Rotated Knee Posture (L) Genu Valgus,(R) Genu Valgus Patellar Posture (L) Superior,(R) Superior Ankle/Foot Posture (L) Pronated,(R) Pronated Comments Posture Comments Demos less fwd flexed trunk posture post op and near equal WB on BLE in stance Palpation Assessment Location R hip Palpation Findings Soft Tissue Tightness, Tenderness Palpation Details 10/03/23: tenderness along anterior and lateral thigh, mild posterior hip tenderness, slight numbness along mid lateral thigh; scar covered by bandage and bruising present along anterior and lateral leg 09/14/23: tenderness to palpation along anterior, medial, and posterior hip muscles, hip joint Skin Assessment Incisional Assessment Incision Appearance/Comments Incision covered by bandage but no redness, drainage or other signs/symptoms of infection or DVT. Slight swelling at R ankle but less proximally PT-OP-K Range of Motion Start: 09/14/23 11:19 Freq: Status: Active Protocol: Document 12/04/23 13:00 NM (Rec: 12/04/23 14:12 NM [id number]) Hip Goniometric Range of Motion Hip Left Flexion w/Knee Flexed 105 Abduction 18 Internal Rotation 35 External Rotation 30 Right Flexion w/Knee Flexed 108 Abduction 20 Internal Rotation 25 External Rotation 25 Comments 09/14/23: 100 deg flex, 10 deg abd, 20 deg IR, 35 deg ER Re-evaluation: 75 deg flex, 5 deg abduction 11/03/23: 100 deg flex, 20 deg abd 12/04/23: 108 deg flex, 20 deg abd, 25 deg IR and ER PT-OP-M Strength Start: 09/14/23 11:19 Freq: Status: Active Protocol: Document 12/04/23 13:00 NM (Rec: 12/04/23 14:12 NM [id number]) Hip Strength Hip Manual Muscle Testing Left Flexion (L2) 4+ Good+ Extension (S1) 4+ Good+ Abduction 4+ Good+ Adduction 4+ Good+ External Rotation 4+ Good+ Internal Rotation 4+ Good+ Right Flexion (L2) 4 Good Extension (S1) 4 Good Abduction 4 Good Adduction 4 Good Comments 09/14/23: 4-/5 for all pre-op; pain with IR, flex 10/03/23: Not formally tested at re-evaluation due to precautions; however pt able to perform SLR to bring leg on /off plinth during transfer and heels slides 11/03/23: 4-/5 for all; hip ext not tested; hip abd tested in sitting 12/04/23: 4/5 for all PT-OP-Q Treatments Start: 09/14/23 11:19 Freq: Status: Active Protocol: Document 12/19/23 09:07 SP (Rec: 12/19/23 09:50 SP [id number]) Gym Equipment Sport Cord Red Exercise Details f/b/lateral stepping. step up/ eccentric step back Cord/Resistance red Reps/Duration 5 reps each direction Comments cues for core and tall over stance LE for improved eccentric stepping control, CGA/close SBA Therapeutic Exercises Supine Exercises leg lengthener Supine Exercise Name initiated post manual for anterior R hip stretch Side right Equipment Used R leg straight, L knee bent/ foot table Reps/Minutes 10 SH x5 Comments no pain figure 4 stretch Supine Exercise Name trialed in PT Side right Equipment Used R foot over L thigh Reps/Minutes 30 Comments pnfree and feels good for decrease anterior R hip tension heel slides Side right Resistance AROM Equipment Used slight lift/lower, not having to slide foot ontable Reps/Minutes x10 Comments ROM within comfort & precautions Sidelying Exercises clams Sidelying Exercise Name continued in PT to promote ER range Side right Equipment Used kickstand top arm on table Reps/Minutes 2x10 Comments good hip positioning; edu comfortable range; pain free Standing Exercises step ups Standing Exercise Name 8: 1. fwd step up, 2. lateral step up Side bilateral Equipment Used 1. 25% UE support 2. 50% UE support lateral Reps/Minutes 1.10 reps repeated 2. 8 ea Comments improved trunk posture over stance leg, less momentum Manual Therapy Treatment Consent Patient gave verbal consent for manual Yes treatment Soft Tissue Mobilization scar mobility Body Location R anterior hip Mobilization Type Rolling Intensity/Depth Moderate Comments supine/L SL R hip Body Location R glut med, piriformis, TFL, prox quad Mobilization Type Rolling Intensity/Depth Moderate Body Position L Sidelying Comments gentle STMs, ed for self application: reports decreased tension, feedback for comfort pressure PT-OP-T Assessment and Plan Start: 09/14/23 11:19 Freq: Status: Active Protocol: Document 12/19/23 09:07 SP (Rec: 12/19/23 09:50 SP [id number]) Physical Therapy Assessment Goals Transfers Impairment pt wants to return to gardening Event Sales Manager Goal (LTG) If appropriate per precautions , pt will be able to transfer to/from floor in a controlled manner for at least 5 reps in order to be able to return to gardening 12/04/23: last session, attempted transfers to floor using UE assist. Able to complete 2 transfers using BUE assist both via chair and 1/2 kneel in addition to from short kneel and quadruped with hips extended LTG Duration 12 weeks PROGRESSING 12/04/23 gait Impairment 6 MWT pre-op 704 ft with 4ww; post op with 379 ft FWW Impairment . Short Term Goal (STG) Pt will demonstrate normal gait mechanics without LRAD for household and short community distances in order to demonstrate return to PLOF and improved balance for gait/ activity tolerance 11/03/23: pt not using spc in home but still using spc in community as needed 11/14/23: pt reports that she is no longer using spc for community ambulation; demos improved gait mechanics STG Duration 6 weeks MET Care Home Goal (LTG) Pt will improve 6 MWT distance without LRAD to >1000 ft, if appropriate, in order to demonstrate improved gait mechanics, endurance, and pain management for community participation 12/04/23: 1149 ft w/o AD LTG Duration /12 weeks MET 12/04/23 weakness Impairment R hip strength 4-/5 pre-op, 3/ 5 post-op Impairment . Short Term Goal (STG) Pt will be able to perform 5x STS test in fewer than 15 seconds without increase in R hip pain (pre-op 28 sec) in order to demonstrate improved BLE strength for gait, transfers, and stairs 11/03/23: 4-/5 for all at hip; 14.8 sec w/o pain from standard ht STG Duration 6 weeks MET Care Home Goal (LTG) Pt will improve R hip strength globally post-operatively to at least 4+/5 MMT in order to demonstrate improved strength for transfers, gait, stairs, and gardening 12/04/23: 4/5 for all LTG Duration 12 weeks PROGRESSING 12/04/23 Stairs Impairment has 15 stairs inside home, 3 steps outside home Impairment . Short Term Goal (STG) Pt will be able to perform at least 15 stairs using rails or AD IND post-operatively in order to demonstrate improved household mobility 11/03/23: 16 stairs with 1 rail assist for balance w/o pain STG Duration 4 weeks MET Care Home Goal (LTG) Pt will have no limitation with stairs due to R hip pain in order to be able to perform all household stairs and stairs within community 12/04/23: No hip pain with stairs but requires 1 hand assist, cued to clear toes LTG Duration 12 weeks PROGRESSING 12/04/23 Hip ROM Impairment global limitations in hip flex , abd Impairment . Short Term Goal (STG) Pt will improve R hip flexion AROM to at least 95 deg in order to demonstrate improved ROM for swing phase of gait 11/03/23: 100 deg hip flexion; 20 deg hip abduction STG Duration 6 weeks MET Care Home Goal (LTG) Pt will demonstrate R hip flexion AROM to at least 110 deg in order to be able to garden 12/04/23: 108 deg hip flexion LTG Duration 12 weeks PROGRESSING Assessment Summary Assessment Pt tolerated tx well, no pain reports in R hip. She provided good feedback to manual, decreased R hip tightness more posterior than anterior today . Good gentle anterior hip stretch leg lengthening post manual, didn't add for home. Pt required increased UE support during 8 step ups today due to muscle tiring but noted assisted momentum reduction. Next tx perform on 6 step for decrease UE support and trial staircase front MAP bldg. Improved eccentric control during bungee stepping able to add resisted stepping off 4 step without UE support and no momentum good quad and glut COG over ATILIO control. Physical Therapy Plan Frequency and Duration Frequency of Treatment 2x/Week Duration of treatment (weeks) 12 Plan of Care Start Date 10/03/23 Plan of Care End Date 12/29/23 Therapeutic Interventions Therapeutic Interventions Balance Training,Gait Training ,Home Exercise Program,Joint Mobilizations,Manual Therapy, Neuromuscular Re-education, Orthotic/Prosthetic Management ,Patient/Caregiver Education, Self-Care/Home Management, Sensory Integration,Soft Tissue Mobilization,Taping, Therapeutic Activities, Therapeutic Exercises Modalities Cold Pack/Ice Massage,Electric Stimulation,Hot Packs, Ultrasound Next Visit Focus/Plan Next Note Type Treatment Note Next Visit Plan Continue bungee stepping add claude, add unstable surfaces uneven mat. Next perform floor transfers 1x/wk, unstable step ups if tolerated and balance on unstable surfaces + with SLS/narrow ATILIO. Add functional strengthening ( picking up objects, lifting, carrying) with hurdles, squats . 8 step up angela lateral motion. glute and quad strength manual prn for swelling and pain management, soft tissue mobilization
--- NOTE | 2023-12-21 09:51 | PT.OTN ---
Current Diagnoses Unilateral primary osteoarthritis, right hip (12/21/23) Stiffness of right hip, not elsewhere classified (12/21/23) Other lack of coordination (12/21/23) Weakness (12/21/23) Physical Therapy Treatment Note PT-OP-A Visit Information Start: 09/14/23 11:19 Freq: Status: Active Protocol: Document 12/21/23 07:37 NM (Rec: 12/21/23 07:38 NM [id number]) Out-Patient Physical Therapy Visit Information Visit Information Visit Type Treatment Note Visit Note DOS 09/26/23 Visit Start Time 09:05 Visit Stop Time 09:45 Visit Number 22 Evaluation Information Evaluation Date 09/14/23 Precautions Precautions No more precautions post MD appointment 11/08/23 per patient DOS 09/26/23 PT-OP-B Current Condition Start: 09/14/23 11:19 Freq: Status: Active Protocol: Document 10/03/23 13:44 NM (Rec: 10/03/23 14:34 NM [id number]) Current Condition History of Current Condition Onset Date DOS 09/26/23 Current Complaints pain, poor mobility, gait, balance History of Current Condition 10/03/23: Pt presents following R [facility]AD[facility] on 09/26/23. Pt reports that she feels really good. She had no complications with surgery. She is still taking pain medications and has a large bruise along her L hip. She presents with spc in L hand. She spent the night in the hospital. Pt able to state hip precautions (no ER, no hip ext). She recently FWW. She has been sleeping upstairs , able to use stairs very well. Has been sleeping both in guest room and in her bed due to transition into bed because has to get into bed on L side. Has been icigin 2-3x/ day, taking acetaminophen/ ibuprofen 4-5x/day. She has follow up with Dr. Almazan next week. She has numbness along the R lateral leg, states getting better. Does not report any signs or symptoms of infection. She has been doing the HEP from hospital every day. 09/14/23: Pt presents with R hip pain. She will surgery in September 25. Planning on an anterior approach. Pt had lumbar surgery in January, which went well. Last visit with Dr. Honeycutt for pain in July, ok to T. Recently finished PT in June. 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 She had a collapsed R arch in the . She reports impairments in standing time, standing straight up, sleeping (wakes her up at night). She has been using 4ww since back surgery, only uses periodically. Plans to get FWW . Pt has 3 steps to enter home , rails on both sides; garage has 3 steps with a handle on the R side. She has 15 steps with rail on R side inside with a bedroom upstairs; she does have a room downstairs where she can sleep but still has to bathe upstairs. She has a bench in the bathtub but also has a shower chair. She lives with her who can physically help her. Treatment Goals Patient/Caregiver Goals gardening (hands and knees or sitting on ground) Prior Functional Status Baseline Function- ADL's Independent Baseline Function- Mobility Modified Independent Baseline Function- Gait ambulation 1 block w/o AD, better w/ 4WW Baseline Function- Recreation/Hobbies sewing, lifting sewing machine , swim 3x/wk Baseline Function- Other hip ER with dressing using clothing to help PT-OP-C Subjective Start: 09/14/23 11:19 Freq: Status: Active Protocol: Document 12/21/23 07:37 NM (Rec: 12/21/23 07:38 NM [id number]) OP-PT Subjective Patient Comments Patient Comments Pt reports still has intermittent buttock pain but states that she had had it for so long; still is annoying but states improved over day. She states that her hip is doing better. [place] good after last session. She forgot to bring her exercise sheets. PT-OP-D Balance Start: 09/14/23 11:19 Freq: Status: Active Protocol: Document 10/23/23 08:03 AB (Rec: 10/23/23 13:01 AB [id number]) Case Balance Assessment Evaluation Sitting to Standing Ability Independent w/out Hands Unsupported Stance Safely- 2 minutes Sitting Unsupported, Feet on Floor Safely- 2 minutes Standing to Sitting Ability Safely, Minimal Hand Use Transfer Ability Safely, Minimal Hand Use Unsupported Stance- Eyes Closed Safely, 10 seconds Unsupported Stance- Eyes Open Independent, 1 minute Reaching Forward Standing Safely, 5 inches Pick- Up Object From Floor Requires Assistance Look Behind Shoulder - Standing Shifts Weight Well Turning 360 Degrees Turns Bilateral, < 4 secs Unsupported Stance, Alternating Feet on (I)- 8 Steps in 20 secs Stair Unsupported Tandem Stance Balance Lost- Step/Stand Unilateral Leg Stance Lifts Leg/Unable to Hold Total Score Case Total Score (out of 56 points) 44 Case Impairment Rating 0% Impaired (Score 56) PT-OP-E Functional Tests Start: 09/14/23 11:19 Freq: Status: Active Protocol: Document 10/03/23 13:44 NM (Rec: 10/03/23 14:34 NM [id number]) Functional Tests 6 Minute Walk Test Distance RE: 379 ft, IE: 740 ft Device Used RE: 4ww, IE: 4ww Comments pain w/ ambulation but reduced w/ AD use Five Times Sit to Stand Test Score RE: did not attempt, IE: 28 sec Comments increased time; painful in hip PT-OP-F Manual Assessment Start: 09/14/23 11:19 Freq: Status: Active Protocol: Document 10/03/23 13:44 NM (Rec: 10/03/23 14:34 NM [id number]) Manual Assessments Soft Tissue Assessment Soft Tissue Mobility Assessment Tenderness along lateral hip and along anterior incision, slight tenderness posteriorly Joint Mobility Assessment Joint Mobility Assessment limited AROM of R hip due to precautions PT-OP-G Mobility & Gait Start: 09/14/23 11:19 Freq: Status: Active Protocol: Document 10/03/23 13:44 NM (Rec: 10/03/23 15:52 NM [id number]) OP Mobility Evaluation Bed Mobility Rolling close SBA Supine to and from Sit close SBA Transfers Sit to Stand without AD and minimal hand support from surface, close SBA OP Gait Assessment Gait Gait Assistance Required: Standby Assistance,Contact Guard Assist Assistive Devices Assistive Device Gait Belt,Straight Cane,Front Wheeled Walker Gait Deviations General Gait Pattern Antalgic Comments Gait Comments Limited RLE extension during stance. Demos spc use far to L side, moderately dependent for balance. Transition to FWW , which pt uses step to gait with more normal mechanics and demos better trunk stability PT-OP-H Neuro Start: 09/14/23 11:19 Freq: Status: Active Protocol: Document 10/03/23 13:44 NM (Rec: 10/03/23 14:34 NM [id number]) Sensation Evaluation Comments Summary Comments Decreased along R lateral thigh to mid thigh PT-OP-J Posture/Palpation/Skin Start: 09/14/23 11:19 Freq: Status: Active Protocol: Document 10/03/23 13:44 NM (Rec: 10/03/23 14:34 NM [id number]) Posture Evaluation Position Standing Head/C-Spine Posture Forward Head L-Spine Posture Increased Lordosis Weight Distribution Weight Shifted Left Hip Posture (L) Neutral,(R) Externally Rotated Knee Posture (L) Genu Valgus,(R) Genu Valgus Patellar Posture (L) Superior,(R) Superior Ankle/Foot Posture (L) Pronated,(R) Pronated Comments Posture Comments Demos less fwd flexed trunk posture post op and near equal WB on BLE in stance Palpation Assessment Location R hip Palpation Findings Soft Tissue Tightness, Tenderness Palpation Details 10/03/23: tenderness along anterior and lateral thigh, mild posterior hip tenderness, slight numbness along mid lateral thigh; scar covered by bandage and bruising present along anterior and lateral leg 09/14/23: tenderness to palpation along anterior, medial, and posterior hip muscles, hip joint Skin Assessment Incisional Assessment Incision Appearance/Comments Incision covered by bandage but no redness, drainage or other signs/symptoms of infection or DVT. Slight swelling at R ankle but less proximally PT-OP-K Range of Motion Start: 09/14/23 11:19 Freq: Status: Active Protocol: Document 12/04/23 13:00 NM (Rec: 12/04/23 14:12 NM [id number]) Hip Goniometric Range of Motion Hip Left Flexion w/Knee Flexed 105 Abduction 18 Internal Rotation 35 External Rotation 30 Right Flexion w/Knee Flexed 108 Abduction 20 Internal Rotation 25 External Rotation 25 Comments 09/14/23: 100 deg flex, 10 deg abd, 20 deg IR, 35 deg ER Re-evaluation: 75 deg flex, 5 deg abduction 11/03/23: 100 deg flex, 20 deg abd 12/04/23: 108 deg flex, 20 deg abd, 25 deg IR and ER PT-OP-M Strength Start: 09/14/23 11:19 Freq: Status: Active Protocol: Document 12/04/23 13:00 NM (Rec: 12/04/23 14:12 NM [id number]) Hip Strength Hip Manual Muscle Testing Left Flexion (L2) 4+ Good+ Extension (S1) 4+ Good+ Abduction 4+ Good+ Adduction 4+ Good+ External Rotation 4+ Good+ Internal Rotation 4+ Good+ Right Flexion (L2) 4 Good Extension (S1) 4 Good Abduction 4 Good Adduction 4 Good Comments 09/14/23: 4-/5 for all pre-op; pain with IR, flex 10/03/23: Not formally tested at re-evaluation due to precautions; however pt able to perform SLR to bring leg on /off plinth during transfer and heels slides 11/03/23: 4-/5 for all; hip ext not tested; hip abd tested in sitting 12/04/23: 4/5 for all PT-OP-Q Treatments Start: 09/14/23 11:19 Freq: Status: Active Protocol: Document 12/21/23 07:37 NM (Rec: 12/21/23 07:38 NM [id number]) Therapeutic Exercises Sitting Exercises STS Sitting Exercise Name with bungee Side bilateral Resistance thick white bungee, standard chair Reps/Minutes 10 Comments resistance for eccentric control Standing Exercises step ups Standing Exercise Name 8: 1. fwd step up, 2. lateral step up; 3. 13 MAP stairs Side bilateral Equipment Used 1. 25% UE support 2. 50% UE support lateral Reps/Minutes 1. 15 reps repeated 2. 8 ea, 3. 2 sets w/ R rail support carrying bucket Comments improved trunk posture over stance leg, less momentum w/ 8 april Standing Exercise Name with bungee Side bilateral Resistance thick white bungee Reps/Minutes 20 ea Comments close SBA; demos trunk sway Therapeutic Activity Therapeutic Activity transfers Name floor transfers; SPV but no assist, wearing gait belt Reps/Minutes 15 minutes, multiple reps Comments Via chair for UE support on mat. Performed via quadruped and short<>tall kneel. 1. w/ weeding simulation using therabands in side sit, tall/ short kneel, quadruped 2. w/ crawling 3. from supine, performing supine brief supine exercises Manual Therapy Treatment Consent Patient gave verbal consent for manual Yes treatment PT-OP-T Assessment and Plan Start: 09/14/23 11:19 Freq: Status: Active Protocol: Document 12/21/23 07:37 NM (Rec: 12/21/23 07:38 NM [id number]) Physical Therapy Assessment Goals Transfers Impairment pt wants to return to gardening General Farm Manager Goal (LTG) If appropriate per precautions , pt will be able to transfer to/from floor in a controlled manner for at least 5 reps in order to be able to return to gardening 12/04/23: last session, attempted transfers to floor using UE assist. Able to complete 2 transfers using BUE assist both via chair and 1/2 kneel in addition to from short kneel and quadruped with hips extended 12/21/23: performed 5 reps of floor <> standing transfers with hand assist on chair in similar set up to garden and household set up LTG Duration 12 weeks MET 12/21/23 gait Impairment 6 MWT pre-op 704 ft with 4ww; post op with 379 ft FWW Impairment . Short Term Goal (STG) Pt will demonstrate normal gait mechanics without LRAD for household and short community distances in order to demonstrate return to PLOF and improved balance for gait/ activity tolerance 11/03/23: pt not using spc in home but still using spc in community as needed 11/14/23: pt reports that she is no longer using spc for community ambulation; demos improved gait mechanics STG Duration 6 weeks MET Care Home Goal (LTG) Pt will improve 6 MWT distance without LRAD to >1000 ft, if appropriate, in order to demonstrate improved gait mechanics, endurance, and pain management for community participation 12/04/23: 1149 ft w/o AD LTG Duration /12 weeks MET 12/04/23 weakness Impairment R hip strength 4-/5 pre-op, 3/ 5 post-op Impairment . Short Term Goal (STG) Pt will be able to perform 5x STS test in fewer than 15 seconds without increase in R hip pain (pre-op 28 sec) in order to demonstrate improved BLE strength for gait, transfers, and stairs 11/03/23: 4-/5 for all at hip; 14.8 sec w/o pain from standard ht STG Duration 6 weeks MET [employer] Farm Manager Goal (LTG) Pt will improve R hip strength globally post-operatively to at least 4+/5 MMT in order to demonstrate improved strength for transfers, gait, stairs, and gardening 12/04/23: 4/5 for all LTG Duration 12 weeks PROGRESSING 12/04/23 Stairs Impairment has 15 stairs inside home, 3 steps outside home Impairment . Short Term Goal (STG) Pt will be able to perform at least 15 stairs using rails or AD IND post-operatively in order to demonstrate improved household mobility 11/03/23: 16 stairs with 1 rail assist for balance w/o pain STG Duration 4 weeks MET [employer] Farm Manager Goal (LTG) Pt will have no limitation with stairs due to R hip pain in order to be able to perform all household stairs and stairs within community 12/04/23: No hip pain with stairs but requires 1 hand assist, cued to clear toes 12/21/23: performs 8 step ups w/ prn hand support for balance; performed 2 reps of 13 stairs with 1 rail support and cued only prn for toe clearance LTG Duration 12 weeks PROGRESSING 12/21/23 Hip ROM Impairment global limitations in hip flex , abd Impairment . Short Term Goal (STG) Pt will improve R hip flexion AROM to at least 95 deg in order to demonstrate improved ROM for swing phase of gait 11/03/23: 100 deg hip flexion; 20 deg hip abduction STG Duration 6 weeks MET Care Home Goal (LTG) Pt will demonstrate R hip flexion AROM to at least 110 deg in order to be able to garden 12/04/23: 108 deg hip flexion 12/21/23: 115 deg R hip flexion LTG Duration 12 weeks MET 12/21/23 Assessment Summary Assessment Pt met floor transfer goal today. Able to perform with various tasks including weed pulling simulation and with crawling in quadruped. No hip pain with transfers but does require UE assist which is similar to set up at home; close SPV only for safety. Improved trunk control and glute strength during 8 forward and lateral step ups. Still requires occasional cues for foot clearance on standard stairs, no stumbles or LOB occurred. Also met hip flexion AROM goal. Pt still demos occasional trunk sway when trunk is resisted during STS, marching, and stairs. Pt progressing well toward goals, meeting several. Pt reports dizzy after lying down for ROM measures at end of session, resolved within 2 minutes. PT and pt discussed discharging to maintenance program at end of plan, pt and PT in agreement. Physical Therapy Plan Frequency and Duration Frequency of Treatment 2x/Week Duration of treatment (weeks) 12 Plan of Care Start Date 10/03/23 Plan of Care End Date 12/29/23 Therapeutic Interventions Therapeutic Interventions Balance Training,Gait Training ,Home Exercise Program,Joint Mobilizations,Manual Therapy, Neuromuscular Re-education, Orthotic/Prosthetic Management ,Patient/Caregiver Education, Self-Care/Home Management, Sensory Integration,Soft Tissue Mobilization,Taping, Therapeutic Activities, Therapeutic Exercises Modalities Cold Pack/Ice Massage,Electric Stimulation,Hot Packs, Ultrasound Next Visit Focus/Plan Next Note Type Treatment Note Next Visit Plan Plan to d/c on 12/27. MAP stairs holding bucket or tote w/ emphasis on foot clearance- assess stair goal and hip ROM goals. Continue bungee stepping add claude, add unstable surfaces uneven mat. Add functional strengthening ( picking up objects, lifting, carrying) with hurdles, squats . 8 step up angela lateral motion. glute and quad strength manual prn for swelling and pain management, soft tissue mobilization
--- NOTE | 2023-12-26 09:46 | PT.OTN ---
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 Pt reports that she feels really good. She had no complications with surgery. She is still taking pain medications and has a large bruise along her L hip. She presents with spc in L hand. She spent the night in the hospital. Pt able to state hip precautions (no ER, no hip ext). She recently FWW. She has been sleeping upstairs , able to use stairs very well. Has been sleeping both in guest room and in her bed due to transition into bed because has to get into bed on L side. Has been icigin 2-3x/ day, taking acetaminophen/ ibuprofen 4-5x/day. She has follow up with Dr. Almazan next week. She has numbness along the R lateral leg, states getting better. Does not report any signs or symptoms of infection. She has been doing the HEP from hospital every day. 09/14/23: Pt presents with R hip pain. She will surgery in September 25. Planning on an anterior approach. Pt had lumbar surgery in January, which went well. Last visit with Dr. Honeycutt for pain in July, ok to BLT. Recently finished PT in June. 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 She had a collapsed R arch in the . She reports impairments in standing time, standing straight up, sleeping (wakes her up at night). She has been using 4ww since back surgery, only uses periodically. Plans to get FWW . Pt has 3 steps to enter home , rails on both sides; garage has 3 steps with a handle on the R side. She has 15 steps with rail on R side inside with a bedroom upstairs; she does have a room downstairs where she can sleep but still has to bathe upstairs. She has a bench in the bathtub but also has a shower chair. She lives with her who can physically help her. Treatment Goals Patient/Caregiver Goals gardening (hands and knees or sitting on ground) Prior Functional Status Baseline Function- ADL's Independent Baseline Function- Mobility Modified Independent Baseline Function- Gait ambulation 1 block w/o AD, better w/ 4WW Baseline Function- Recreation/Hobbies sewing, lifting sewing machine , swim 3x/wk Baseline Function- Other hip ER with dressing using clothing to help PT-OP-C Subjective Start: 09/14/23 11:19 Freq: Status: Active Protocol: Document 12/26/23 09:00 SP (Rec: 12/26/23 09:48 SP [id number]) OP-PT Subjective Patient Comments Patient Comments Pt reports she just woke up so not as awake. She brought her HOs of HEP and wondering if wish for her to continue all ex. PT-OP-D Balance Start: 09/14/23 11:19 Freq: Status: Active Protocol: Document 10/23/23 08:03 AB (Rec: 10/23/23 13:01 AB [id number]) Case Balance Assessment Evaluation Sitting to Standing Ability Independent w/out Hands Unsupported Stance Safely- 2 minutes Sitting Unsupported, Feet on Floor Safely- 2 minutes Standing to Sitting Ability Safely, Minimal Hand Use Transfer Ability Safely, Minimal Hand Use Unsupported Stance- Eyes Closed Safely, 10 seconds Unsupported Stance- Eyes Open Independent, 1 minute Reaching Forward Standing Safely, 5 inches Pick- Up Object From Floor Requires Assistance Look Behind Shoulder - Standing Shifts Weight Well Turning 360 Degrees Turns Bilateral, < 4 secs Unsupported Stance, Alternating Feet on (I)- 8 Steps in 20 secs Stair Unsupported Tandem Stance Balance Lost- Step/Stand Unilateral Leg Stance Lifts Leg/Unable to Hold Total Score Case Total Score (out of 56 points) 44 Case Impairment Rating 0% Impaired (Score 56) PT-OP-E Functional Tests Start: 09/14/23 11:19 Freq: Status: Active Protocol: Document 10/03/23 13:44 NM (Rec: 10/03/23 14:34 NM [id number]) Functional Tests 6 Minute Walk Test Distance RE: 379 ft, IE: 740 ft Device Used RE: 4ww, IE: 4ww Comments pain w/ ambulation but reduced w/ AD use Five Times Sit to Stand Test Score RE: did not attempt, IE: 28 sec Comments increased time; painful in hip PT-OP-F Manual Assessment Start: 09/14/23 11:19 Freq: Status: Active Protocol: Document 10/03/23 13:44 NM (Rec: 10/03/23 14:34 NM [id number]) Manual Assessments Soft Tissue Assessment Soft Tissue Mobility Assessment Tenderness along lateral hip and along anterior incision, slight tenderness posteriorly Joint Mobility Assessment Joint Mobility Assessment limited AROM of R hip due to precautions PT-OP-G Mobility & Gait Start: 09/14/23 11:19 Freq: Status: Active Protocol: Document 10/03/23 13:44 NM (Rec: 10/03/23 15:52 NM [id number]) OP Mobility Evaluation Bed Mobility Rolling close SBA Supine to and from Sit close SBA Transfers Sit to Stand without AD and minimal hand support from surface, close SBA OP Gait Assessment Gait Gait Assistance Required: Standby Assistance,Contact Guard Assist Assistive Devices Assistive Device Gait Belt,Straight Cane,Front Wheeled Walker Gait Deviations General Gait Pattern Antalgic Comments Gait Comments Limited RLE extension during stance. Demos spc use far to L side, moderately dependent for balance. Transition to FWW , which pt uses step to gait with more normal mechanics and demos better trunk stability PT-OP-H Neuro Start: 09/14/23 11:19 Freq: Status: Active Protocol: Document 10/03/23 13:44 NM (Rec: 10/03/23 14:34 NM [id number]) Sensation Evaluation Comments Summary Comments Decreased along R lateral thigh to mid thigh PT-OP-J Posture/Palpation/Skin Start: 09/14/23 11:19 Freq: Status: Active Protocol: Document 10/03/23 13:44 NM (Rec: 10/03/23 14:34 NM [id number]) Posture Evaluation Position Standing Head/C-Spine Posture Forward Head L-Spine Posture Increased Lordosis Weight Distribution Weight Shifted Left Hip Posture (L) Neutral,(R) Externally Rotated Knee Posture (L) Genu Valgus,(R) Genu Valgus Patellar Posture (L) Superior,(R) Superior Ankle/Foot Posture (L) Pronated,(R) Pronated Comments Posture Comments Demos less fwd flexed trunk posture post op and near equal WB on BLE in stance Palpation Assessment Location R hip Palpation Findings Soft Tissue Tightness, Tenderness Palpation Details 10/03/23: tenderness along anterior and lateral thigh, mild posterior hip tenderness, slight numbness along mid lateral thigh; scar covered by bandage and bruising present along anterior and lateral leg 09/14/23: tenderness to palpation along anterior, medial, and posterior hip muscles, hip joint Skin Assessment Incisional Assessment Incision Appearance/Comments Incision covered by bandage but no redness, drainage or other signs/symptoms of infection or DVT. Slight swelling at R ankle but less proximally PT-OP-K Range of Motion Start: 09/14/23 11:19 Freq: Status: Active Protocol: Document 12/04/23 13:00 NM (Rec: 12/04/23 14:12 NM [id number]) Hip Goniometric Range of Motion Hip Left Flexion w/Knee Flexed 105 Abduction 18 Internal Rotation 35 External Rotation 30 Right Flexion w/Knee Flexed 108 Abduction 20 Internal Rotation 25 External Rotation 25 Comments 09/14/23: 100 deg flex, 10 deg abd, 20 deg IR, 35 deg ER Re-evaluation: 75 deg flex, 5 deg abduction 11/03/23: 100 deg flex, 20 deg abd 12/04/23: 108 deg flex, 20 deg abd, 25 deg IR and ER PT-OP-M Strength Start: 09/14/23 11:19 Freq: Status: Active Protocol: Document 12/04/23 13:00 NM (Rec: 12/04/23 14:12 NM [id number]) Hip Strength Hip Manual Muscle Testing Left Flexion (L2) 4+ Good+ Extension (S1) 4+ Good+ Abduction 4+ Good+ Adduction 4+ Good+ External Rotation 4+ Good+ Internal Rotation 4+ Good+ Right Flexion (L2) 4 Good Extension (S1) 4 Good Abduction 4 Good Adduction 4 Good Comments 09/14/23: 4-/5 for all pre-op; pain with IR, flex 10/03/23: Not formally tested at re-evaluation due to precautions; however pt able to perform SLR to bring leg on /off plinth during transfer and heels slides 11/03/23: 4-/5 for all; hip ext not tested; hip abd tested in sitting 12/04/23: 4/5 for all PT-OP-Q Treatments Start: 09/14/23 11:19 Freq: Status: Active Protocol: Document 12/26/23 09:00 SP (Rec: 12/26/23 09:48 SP [id number]) Gym Equipment Shuttle Recovery Unilateral Squats Details cued TKE, knee alignment with 2nd toe; performed BLE Resistance 50# (2 navy) Reps/Time 3x15 ea Bilateral Squats Details B squats Resistance 75# (3 navy) Shuttle Recovery Platform Stable Reps/Time 20 Therapeutic Exercises Sitting Exercises sit to stand with band Side bilateral Resistance level 5 band Equipment Used arms across chest Reps/Minutes 2x10 Comments occ cues knees apart Standing Exercises lateral step down Standing Exercise Name added to HEP /c HO Side bilateral Resistance AROM Equipment Used 6 step PRN rail Reps/Minutes x10 Comments cued softer stepping, UE contact as needed Other Exercises lunge Other Exercise Name RLE forward, then slight hip ext when RLE behind Side bilateral Equipment Used 1 light HR support Reps/Minutes 2x10 ea Comments cued increase ATILIO, knee and feet fwd, no knee valgus Gait Training Gait Activity stairs Device Used rails- B (outside) or R/L side (inside) Level of Assistance close SBA Distance/Duration 4 minutes Treatment Focus post-op stair training Comments asc/desc carrying bucket 8# PRN rail more desc then ascend Neuro Re-Education Treatment Balance Activities SLS Details Corner; tandem & SLS Surface added to HEP Reps/Duration 5 min total Comments LLE 3 sec, 5 sec, 17 sec RLE 3 sec multiple reps Tandem stable approx 15 sec, HTs sways min contact sway recovery PT-OP-T Assessment and Plan Start: 09/14/23 11:19 Freq: Status: Active Protocol: Document 12/26/23 09:00 SP (Rec: 12/26/23 09:48 SP [id number]) Physical Therapy Assessment Goals Transfers Impairment pt wants to return to gardening Solutions Operator Goal (LTG) If appropriate per precautions , pt will be able to transfer to/from floor in a controlled manner for at least 5 reps in order to be able to return to gardening 12/04/23: last session, attempted transfers to floor using UE assist. Able to complete 2 transfers using BUE assist both via chair and 1/2 kneel in addition to from short kneel and quadruped with hips extended 12/21/23: performed 5 reps of floor <> standing transfers with hand assist on chair in similar set up to garden and household set up LTG Duration 12 weeks MET 12/21/23 gait Impairment 6 MWT pre-op 704 ft with 4ww; post op with 379 ft FWW Impairment . Short Term Goal (STG) Pt will demonstrate normal gait mechanics without LRAD for household and short community distances in order to demonstrate return to PLOF and improved balance for gait/ activity tolerance 11/03/23: pt not using spc in home but still using spc in community as needed 11/14/23: pt reports that she is no longer using spc for community ambulation; demos improved gait mechanics STG Duration 6 weeks MET Solutions Operator Goal (LTG) Pt will improve 6 MWT distance without LRAD to >1000 ft, if appropriate, in order to demonstrate improved gait mechanics, endurance, and pain management for community participation 12/04/23: 1149 ft w/o AD LTG Duration /12 weeks MET 12/04/23 weakness Impairment R hip strength 4-/5 pre-op, 3/ 5 post-op Impairment . Short Term Goal (STG) Pt will be able to perform 5x STS test in fewer than 15 seconds without increase in R hip pain (pre-op 28 sec) in order to demonstrate improved BLE strength for gait, transfers, and stairs 11/03/23: 4-/5 for all at hip; 14.8 sec w/o pain from standard ht STG Duration 6 weeks MET Solutions Operator Goal (LTG) Pt will improve R hip strength globally post-operatively to at least 4+/5 MMT in order to demonstrate improved strength for transfers, gait, stairs, and gardening 12/04/23: 4/5 for all LTG Duration 12 weeks PROGRESSING 12/04/23 Stairs Impairment has 15 stairs inside home, 3 steps outside home Impairment . Short Term Goal (STG) Pt will be able to perform at least 15 stairs using rails or AD IND post-operatively in order to demonstrate improved household mobility 11/03/23: 16 stairs with 1 rail assist for balance w/o pain STG Duration 4 weeks MET Solutions Operator Goal (LTG) Pt will have no limitation with stairs due to R hip pain in order to be able to perform all household stairs and stairs within community 12/04/23: No hip pain with stairs but requires 1 hand assist, cued to clear toes 12/21/23: performs 8 step ups w/ prn hand support for balance; performed 2 reps of 13 stairs with 1 rail support and cued only prn for toe clearance 12/25/23 GOAL MET: able ascend /descend 28 stair receiprocal stepping carrying 1 bucket in hand, light contact descending as neede. LTG Duration 12 weeks GOAL MET 12/25/23 Hip ROM Impairment global limitations in hip flex , abd Impairment . Short Term Goal (STG) Pt will improve R hip flexion AROM to at least 95 deg in order to demonstrate improved ROM for swing phase of gait 11/03/23: 100 deg hip flexion; 20 deg hip abduction STG Duration 6 weeks MET Solutions Operator Goal (LTG) Pt will demonstrate R hip flexion AROM to at least 110 deg in order to be able to garden 12/04/23: 108 deg hip flexion 12/21/23: 115 deg R hip flexion LTG Duration 12 weeks MET 12/21/23 Assessment Summary Assessment BOOK REPAIRER assisted condensed pt's HEP down to 3 sheets of 5 exercises that will help with LE strengthening and balance. Pt MET stairs goal was able to complete receiprocal stair mgt (28 stair case) while carrying bucket in 1 hand ascending, light contact rail descending. Increased resistance during STS and added lateral step downs without UE support if felt stable for LE strengthening support balance. Pt is still challenged with SLS but worked today with increase tandem stance challenge in safe corner wall positioning with head turns, contact chair as needed and shown in safe location for self progression SLS balance activities. Physical Therapy Plan Frequency and Duration Frequency of Treatment 2x/Week Duration of treatment (weeks) 12 Plan of Care Start Date 10/03/23 Plan of Care End Date 12/29/23 Therapeutic Interventions Therapeutic Interventions Balance Training,Gait Training ,Home Exercise Program,Joint Mobilizations,Manual Therapy, Neuromuscular Re-education, Orthotic/Prosthetic Management ,Patient/Caregiver Education, Self-Care/Home Management, Sensory Integration,Soft Tissue Mobilization,Taping, Therapeutic Activities, Therapeutic Exercises Modalities Cold Pack/Ice Massage,Electric Stimulation,Hot Packs, Ultrasound Next Visit Focus/Plan Next Note Type Discharge Summary Next Visit Plan Plan to d/c with PT on 12/27. Last tx check hip ROM goals. Continue bungee stepping add claude, add unstable surfaces uneven mat. Add functional strengthening (picking up objects, lifting, carrying) with hurdles, squats. 8 step up angela lateral motion. glute and quad strength
--- NOTE | 2023-12-28 10:11 | PT.OTN ---
Current Diagnoses Unilateral primary osteoarthritis, right hip (12/28/23) Stiffness of right hip, not elsewhere classified (12/28/23) Other lack of coordination (12/28/23) Weakness (12/28/23) Physical Therapy Treatment Note PT-OP-A Visit Information Start: 09/14/23 11:19 Freq: Status: Active Protocol: Document 12/28/23 07:36 NM (Rec: 12/28/23 07:43 NM [id number]) Out-Patient Physical Therapy Visit Information Visit Information Visit Type Discharge Summary Visit Note DOS 09/26/23 BP 142/89 R arm start of session Visit Start Time 09:05 Visit Stop Time 09:45 Visit Number 24 Number of DOUGH MOLDER HAND Visits 0 PT-OP-B Current Condition Start: 09/14/23 11:19 Freq: Status: Active Protocol: Document 10/03/23 13:44 NM (Rec: 10/03/23 14:34 NM [id number]) Current Condition History of Current Condition Onset Date DOS 09/26/23 Current Complaints pain, poor mobility, gait, balance History of Current Condition 10/03/23: Pt presents following R AMADOR on 09/26/23. Pt reports that she feels really good. She had no complications with surgery. She is still taking pain medications and has a large bruise along her L hip. She presents with spc in L hand. She spent the night in the hospital. Pt able to state hip precautions (no ER, no hip ext). She recently FWW. She has been sleeping upstairs , able to use stairs very well. Has been sleeping both in guest room and in her bed due to transition into bed because has to get into bed on L side. Has been icigin 2-3x/ day, taking acetaminophen/ ibuprofen 4-5x/day. She has follow up with Dr. Almazan next week. She has numbness along the R lateral leg, states getting better. Does not report any signs or symptoms of infection. She has been doing the HEP from hospital every day. 09/14/23: Pt presents with R hip pain. She will surgery in September 25. Planning on an anterior approach. Pt had lumbar surgery in January, which went well. Last visit with Dr. Honeycutt for pain in July, ok to T. Recently finished PT in June. 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 She had a collapsed R arch in the . She reports impairments in standing time, standing straight up, sleeping (wakes her up at night). She has been using 4ww since back surgery, only uses periodically. Plans to get FWW . Pt has 3 steps to enter home , rails on both sides; garage has 3 steps with a handle on the R side. She has 15 steps with rail on R side inside with a bedroom upstairs; she does have a room downstairs where she can sleep but still has to bathe upstairs. She has a bench in the bathtub but also has a shower chair. She lives with her who can physically help her. Treatment Goals Patient/Caregiver Goals gardening (hands and knees or sitting on ground) Prior Functional Status Baseline Function- ADL's Independent Baseline Function- Mobility Modified Independent Baseline Function- Gait ambulation 1 block w/o AD, better w/ 4WW Baseline Function- Recreation/Hobbies sewing, lifting sewing machine , swim 3x/wk Baseline Function- Other hip ER with dressing using clothing to help PT-OP-C Subjective Start: 09/14/23 11:19 Freq: Status: Active Protocol: Document 12/28/23 07:36 NM (Rec: 12/28/23 07:43 NM [id number]) OP-PT Subjective Patient Comments Patient Comments Pt reports feeling dizzy this am, states woke up late and has had only a little to eat and drink. Pt ready to be done with PT, agrees to discharge. Planning to discharge to maintenance program with HEP issued at last session for strengthening PT-OP-D Balance Start: 09/14/23 11:19 Freq: Status: Active Protocol: Document 10/23/23 08:03 AB (Rec: 10/23/23 13:01 AB [id number]) Case Balance Assessment Evaluation Sitting to Standing Ability Independent w/out Hands Unsupported Stance Safely- 2 minutes Sitting Unsupported, Feet on Floor Safely- 2 minutes Standing to Sitting Ability Safely, Minimal Hand Use Transfer Ability Safely, Minimal Hand Use Unsupported Stance- Eyes Closed Safely, 10 seconds Unsupported Stance- Eyes Open Independent, 1 minute Reaching Forward Standing Safely, 5 inches Pick- Up Object From Floor Requires Assistance Look Behind Shoulder - Standing Shifts Weight Well Turning 360 Degrees Turns Bilateral, < 4 secs Unsupported Stance, Alternating Feet on (I)- 8 Steps in 20 secs Stair Unsupported Tandem Stance Balance Lost- Step/Stand Unilateral Leg Stance Lifts Leg/Unable to Hold Total Score Case Total Score (out of 56 points) 44 Case Impairment Rating 0% Impaired (Score 56) PT-OP-E Functional Tests Start: 09/14/23 11:19 Freq: Status: Active Protocol: Document 10/03/23 13:44 NM (Rec: 10/03/23 14:34 NM [id number]) Functional Tests 6 Minute Walk Test Distance RE: 379 ft, IE: 740 ft Device Used RE: 4ww, IE: 4ww Comments pain w/ ambulation but reduced w/ AD use Five Times Sit to Stand Test Score RE: did not attempt, IE: 28 sec Comments increased time; painful in hip PT-OP-F Manual Assessment Start: 09/14/23 11:19 Freq: Status: Active Protocol: Document 10/03/23 13:44 NM (Rec: 10/03/23 14:34 NM [id number]) Manual Assessments Soft Tissue Assessment Soft Tissue Mobility Assessment Tenderness along lateral hip and along anterior incision, slight tenderness posteriorly Joint Mobility Assessment Joint Mobility Assessment limited AROM of R hip due to precautions PT-OP-G Mobility & Gait Start: 09/14/23 11:19 Freq: Status: Active Protocol: Document 10/03/23 13:44 NM (Rec: 10/03/23 15:52 NM [id number]) OP Mobility Evaluation Bed Mobility Rolling close SBA Supine to and from Sit close SBA Transfers Sit to Stand without AD and minimal hand support from surface, close SBA OP Gait Assessment Gait Gait Assistance Required: Standby Assistance,Contact Guard Assist Assistive Devices Assistive Device Gait Belt,Straight Cane,Front Wheeled Walker Gait Deviations General Gait Pattern Antalgic Comments Gait Comments Limited RLE extension during stance. Demos spc use far to L side, moderately dependent for balance. Transition to FWW , which pt uses step to gait with more normal mechanics and demos better trunk stability PT-OP-H Neuro Start: 09/14/23 11:19 Freq: Status: Active Protocol: Document 10/03/23 13:44 NM (Rec: 10/03/23 14:34 NM [id number]) Sensation Evaluation Comments Summary Comments Decreased along R lateral thigh to mid thigh PT-OP-J Posture/Palpation/Skin Start: 09/14/23 11:19 Freq: Status: Active Protocol: Document 10/03/23 13:44 NM (Rec: 10/03/23 14:34 NM [id number]) Posture Evaluation Position Standing Head/C-Spine Posture Forward Head L-Spine Posture Increased Lordosis Weight Distribution Weight Shifted Left Hip Posture (L) Neutral,(R) Externally Rotated Knee Posture (L) Genu Valgus,(R) Genu Valgus Patellar Posture (L) Superior,(R) Superior Ankle/Foot Posture (L) Pronated,(R) Pronated Comments Posture Comments Demos less fwd flexed trunk posture post op and near equal WB on BLE in stance Palpation Assessment Location R hip Palpation Findings Soft Tissue Tightness, Tenderness Palpation Details 10/03/23: tenderness along anterior and lateral thigh, mild posterior hip tenderness, slight numbness along mid lateral thigh; scar covered by bandage and bruising present along anterior and lateral leg 09/14/23: tenderness to palpation along anterior, medial, and posterior hip muscles, hip joint Skin Assessment Incisional Assessment Incision Appearance/Comments Incision covered by bandage but no redness, drainage or other signs/symptoms of infection or DVT. Slight swelling at R ankle but less proximally PT-OP-K Range of Motion Start: 09/14/23 11:19 Freq: Status: Active Protocol: Document 12/28/23 07:36 NM (Rec: 12/28/23 07:43 NM [id number]) Hip Goniometric Range of Motion Hip Left Flexion w/Knee Flexed 105 Abduction 18 Internal Rotation 35 External Rotation 30 Right Flexion w/Knee Flexed 115 Abduction 20 Internal Rotation 25 External Rotation 25 Comments 09/14/23: 100 deg flex, 10 deg abd, 20 deg IR, 35 deg ER Re-evaluation: 75 deg flex, 5 deg abduction 11/03/23: 100 deg flex, 20 deg abd 12/04/23: 108 deg flex, 20 deg abd, 25 deg IR and ER 12/28/23: 115 deg hip flex PT-OP-M Strength Start: 09/14/23 11:19 Freq: Status: Active Protocol: Document 12/28/23 07:36 NM (Rec: 12/28/23 07:43 NM [id number]) Hip Strength Hip Manual Muscle Testing Left Flexion (L2) 4+ Good+ Extension (S1) 4+ Good+ Abduction 4+ Good+ Adduction 4+ Good+ External Rotation 4+ Good+ Internal Rotation 4+ Good+ Right Flexion (L2) 4 Good Extension (S1) 4+ Good+ Abduction 4+ Good+ Adduction 4+ Good+ Comments 09/14/23: 4-/5 for all pre-op; pain with IR, flex 10/03/23: Not formally tested at re-evaluation due to precautions; however pt able to perform SLR to bring leg on /off plinth during transfer and heels slides 11/03/23: 4-/5 for all; hip ext not tested; hip abd tested in sitting 12/04/23: 4/5 for all 12/28/23: 4/5 hip flex, 4+/5 for all others PT-OP-Q Treatments Start: 09/14/23 11:19 Freq: Status: Active Protocol: Document 12/28/23 07:36 NM (Rec: 12/28/23 07:43 NM [id number]) Therapeutic Exercises Sitting Exercises sit to stand with band Side bilateral Resistance level 3 band > level 5 band Equipment Used arms across chest Reps/Minutes 10 w/ level 3 band, 10 w/ level 5 Standing Exercises lateral step down Standing Exercise Name added to HEP /c HO Side bilateral Resistance AROM Equipment Used 6 step PRN rail Reps/Minutes x10 ea Comments cued softer stepping, UE contact as needed, no foot contact march Standing Exercise Name with bungee Side bilateral Resistance level 2 band Equipment Used 1 hand support balance prn Reps/Minutes 2x20 ea Comments edu to do near counter HEP, also keep band already tied vs tie in standing Other Exercises lunge Other Exercise Name RLE forward, then slight hip ext when RLE behind Side bilateral Equipment Used 1 light HR support prn Reps/Minutes 10 Comments cued increase ATILIO, knee and feet fwd, no knee valgus Manual Therapy Treatment Consent Patient gave verbal consent for manual Yes treatment Soft Tissue Mobilization scar mobility Body Location R anterior hip Mobilization Type Rolling Intensity/Depth Moderate Comments Supine, performed with rolling , lifting, twisting, and gentle pressing along scar with education to pt about continuing scar mobility at home R hip Body Location R glut med, piriformis, TFL, prox quad Mobilization Type Rolling Intensity/Depth Moderate Body Position L Sidelying Comments gentle STMs, education for self application: reports decreased tension, feedback for comfort pressure Neuro Re-Education Treatment Balance Activities tandem Details HEP review Surface stable Equipment prn hand support if LOB w/o fall Reps/Duration 2x30 ea Comments contact recovery review education for nearby wall or support surface at home for safety and intermittent hand placement for safety SLS Details HEP review Surface stable Equipment prn hand supporti f LOB w/o fall Reps/Duration 2x30 ea Comments contact recovery, more sway that tandem review education for nearby wall or support surface at home for safety and intermittent hand placement for safety PT-OP-T Assessment and Plan Start: 09/14/23 11:19 Freq: Status: Active Protocol: Document 12/28/23 07:36 NM (Rec: 12/28/23 07:43 NM [id number]) Physical Therapy Assessment Goals Transfers Impairment pt wants to return to gardening Sizing Machine And Drier Operator Goal (LTG) If appropriate per precautions , pt will be able to transfer to/from floor in a controlled manner for at least 5 reps in order to be able to return to gardening 12/04/23: last session, attempted transfers to floor using UE assist. Able to complete 2 transfers using BUE assist both via chair and 1/2 kneel in addition to from short kneel and quadruped with hips extended 12/21/23: performed 5 reps of floor <> standing transfers with hand assist on chair in similar set up to garden and household set up LTG Duration 12 weeks MET 12/21/23 gait Impairment 6 MWT pre-op 704 ft with 4ww; post op with 379 ft FWW Impairment . Short Term Goal (STG) Pt will demonstrate normal gait mechanics without LRAD for household and short community distances in order to demonstrate return to PLOF and improved balance for gait/ activity tolerance 11/03/23: pt not using spc in home but still using spc in community as needed 11/14/23: pt reports that she is no longer using spc for community ambulation; demos improved gait mechanics STG Duration 6 weeks MET Long-Term Goal (LTG) Pt will improve 6 MWT distance without LRAD to >1000 ft, if appropriate, in order to demonstrate improved gait mechanics, endurance, and pain management for community participation 12/04/23: 1149 ft w/o AD LTG Duration /12 weeks MET 12/04/23 weakness Impairment R hip strength 4-/5 pre-op, 3/ 5 post-op Impairment . Short Term Goal (STG) Pt will be able to perform 5x STS test in fewer than 15 seconds without increase in R hip pain (pre-op 28 sec) in order to demonstrate improved BLE strength for gait, transfers, and stairs 11/03/23: 4-/5 for all at hip; 14.8 sec w/o pain from standard ht STG Duration 6 weeks MET Sizing Machine And Drier Operator Goal (LTG) Pt will improve R hip strength globally post-operatively to at least 4+/5 MMT in order to demonstrate improved strength for transfers, gait, stairs, and gardening 12/04/23: 4/5 for all 12/28/23: 4/5 for hip flex, 4+ 5 for all others LTG Duration 12 weeks PARTIALLY MET 12/27 Hip ROM Impairment global limitations in hip flex , abd Impairment . Short Term Goal (STG) Pt will improve R hip flexion AROM to at least 95 deg in order to demonstrate improved ROM for swing phase of gait 11/03/23: 100 deg hip flexion; 20 deg hip abduction STG Duration 6 weeks MET Long-Term Goal (LTG) Pt will demonstrate R hip flexion AROM to at least 110 deg in order to be able to garden 12/04/23: 108 deg hip flexion 12/21/23: 115 deg R hip flexion 12/28/23: 115 deg LTG Duration 12 weeks MET 12/21/23 Progress Towards Goals Progress Towards Goals Progressing Toward Goals,Goals Met Progress Comments Remaining strength goal partially met Assessment Summary Assessment Pt dizzy at start of session, resolved with water and brief rest in sitting supine; BP assessed 142/89 mmHg. Session emphasis on maintenance program for pt. Reviewed program condensed by DOUGH MOLDER HAND last session. Pt continues to require prn hand contact to limit sway and for stabilization with balance. Education on safety with nearby support at home; pt has improved stability compared to previous sessions. Lateral step down more challenging still; cueing to not place foot on ground for improved form vs letting foot touch as limits control. Progressed to level 5 band for STS from level 3; pt has been issued remaining bands for maintenance program. Better depth with lunge and less hand support required, no LOB. Physical Therapy Plan Frequency and Duration Frequency of Treatment 2x/Week Duration of treatment (weeks) 12 Plan of Care Start Date 10/03/23 Plan of Care End Date 12/29/23 Therapeutic Interventions Therapeutic Interventions Balance Training,Gait Training ,Home Exercise Program,Joint Mobilizations,Manual Therapy, Neuromuscular Re-education, Orthotic/Prosthetic Management ,Patient/Caregiver Education, Self-Care/Home Management, Sensory Integration,Soft Tissue Mobilization,Taping, Therapeutic Activities, Therapeutic Exercises Modalities Cold Pack/Ice Massage,Electric Stimulation,Hot Packs, Ultrasound Discharge Physical Therapy Discharge Reasons Goals Met Discharge Comments 3 goals met, last goal partially met. Pt to be discharged to maintenance program for continued strengthening. Planning to return with vestibular referral for dizziness Next Visit Focus/Plan Next Note Type Discharge Summary Next Visit Plan discharge from PT
== END 2024-01-09 14:40 | disposition home or self-care (01) ==
LOC: PHYS 09:00
PROVIDERS: Family Provider Nurse Practitioner; PCP Nurse Practitioner; Referring Provider Orthopaedic Surgery; Visit Provider Orthopaedic Surgery
DX: M16.11 Unilateral primary osteoarthritis, right hip (principal); R53.1 Weakness; R27.8 Other lack of coordination; M25.651 Stiffness of right hip, not elsewhere classified
CPT/HCPCS: 97110; 97112; 97116; 97140; 97162; 97164; 97530

== ENCOUNTER 2024-02-07 10:13 | Emergency (ER) | payer MEDICARE, SELFPAY ==
[2023-09-26 15:28] VITALS: BMI 31.8
[2024-02-07 10:19] VITALS: BP 125/65; PULSE 77; O2SAT 95
[2024-02-07 10:26] VITALS: BP 127/65; PULSE 78; RESP 16; TEMP 36.9; O2SAT 98; BMI 31.4
[2024-02-07 10:26] LABS: Add Manual Diff / Slide Review NO; Basophils Absolute Auto 100 /uL (0-100); Basophils Percent Auto 0.8 % (0-2); Eosinophils Absolute Auto 100 /uL (0-450); Eosinophils Percent Auto 1.9 % (2-4); Hematocrit 41.6 % (36-46); Hemoglobin 14.2 g/dL (12.0-16.0); Lymphocytes Absolute Auto 3000 /uL (1100-4500); Lymphocytes Percent Auto 43.4 % (25-40); Mean Corpuscular HGB Conc 34.1 % (30-36); Mean Corpuscular Hemoglobin 31.2 PG (26-34); Mean Corpuscular Volume 91.5 fL (80-100); Monocytes Absolute Auto 900 /uL (0-900); Monocytes Percent Auto 12.5 % (3-14); Neutrophils Absolute Auto 2800 /uL (1500-7000); Neutrophils Percent Auto 41.4 % (50-75); Platelet Count 211 X10^3/uL (150-400); Red Blood Cell Count 4.54 X10^6/uL (4.0-5.2); Red Cell Distribution Width 14.2 % (11.6-14.8); White Blood Cell Count 6.8 X10^3/uL (4.5-11.0)
--- NOTE | 2024-02-07 10:26 | EKG_ITS ---
[address] [address] Test Date: 2024-02-07 Pat Name: Harleen Kaur Department: Room: Gender: Female Diet Aide: LIVIA : 1950 Requested By: Order Number: [id number] Reading MD: Matt Turpin MD Measurements Intervals [place] Rate: 74 P: 36 AR: 248 QRS: -20 QRSD: 84 T: 38 QT: 404 QTc: 448 Interpretive Statements Sinus rhythm with 1st degree AV block Minimal voltage criteria for LVH, may be normal variant ( R in aVL ) Electronically Signed On 02-08-2024 7:36:30 PST by Matt Turpin MD
[2024-02-07 10:30] VITALS: BP 127/65; PULSE 78; RESP 24; O2SAT 96
--- NOTE | 2024-02-07 10:34 | ED.GENADULT ---
HPI - General Adult General Chief complaint: Syncope Stated complaint: Syncope Time Seen by Provider: 02/07/24 10:15 Source: patient and EMS Mode of arrival: EMS Limitations: no limitations History of Present Illness HPI narrative: Patient is a 73-year-old female. Not on anticoagulation. Has been taking all of her medications as directed. States she was sitting at a local coffee shop talking with some friends. States she started to feel lightheaded and dizzy. She did vomit. She then had a syncopal episode. The next thing she remembers were individuals standing on top of her. Prior to passing out she had no chest pain, lightheadedness, shortness of breath, palpitations. This is not happened to her in the past. No headache. No numbness or tingling in upper and lower extremities. No abdominal pain. No urinary symptoms. Related Data Home Medications Medication Instructions Recorded Confirmed acetaminophen 500 mg capsule 1,000 mg PO TID PRN Pain 03/30/23 10/26/23 Previous Rx's Medication Instructions Recorded levothyroxine 88 mcg tablet See Rx Instructions .Route 04/04/23 .COMPLEX #90 tabs bupropion HCl 100 mg tablet,12 hr See Rx Instructions .Route 04/05/23 sustained-release .COMPLEX #180 tabs rosuvastatin 5 mg tablet 5 mg PO DAILY #90 tabs 09/13/23 lisinopril 20 mg tablet 20 mg PO DAILY #90 tabs 11/16/23 lisinopril 20 1 tab PO DAILY #90 tabs 11/16/23 mg-hydrochlorothiazide 12.5 mg tablet Allergies Allergy/AdvReac Type Severity Reaction Status Date / Time No Known Drug Allergies Allergy Verified 12/28/23 13:57 Review of Systems Review of Systems ROS Unobtainable: All systems reviewed & are unremarkable except as noted in HPI and below Patient History Medical History Elevated fasting glucose Pre-diabetes Bone spur of femur Class 2 obesity due to excess calories in adult Family history of malignant hyperthermia Anterolisthesis of lumbar spine 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 Hyperlipidemia Counseling regarding advanced care planning and goals of care Presence of orthotic device Chronic lower back pain Elevated LFTs Hypertension Rosacea Depression Hip pain (~2016) Foot pain (~1987) Tinnitus (~2005) Hypothyroidism (~2013) Surgical History History of gynecologic surgery (02/10/23) History of lumbar spinal fusion (02/15/23) History of back surgery Hx of colonoscopy (09/13/19) Anesthesia Uterine polyp (~2014) Family History Father Stroke Mother Hypertension Social History household members: spouse Smoking Status: Never smoker alcohol intake: current Smoking Status: Never smoker alcohol intake frequency: a few times a month Exam Initial Vital Signs Initial Vital Signs: Vital Signs Pulse Rate 77 02/07/24 10:19 Blood Pressure 125/65 02/07/24 10:19 Pulse Oximetry 95 02/07/24 10:19 Const General: cooperative, comfortable and No ill appearing HENMT Head: normal to inspection and normocephalic Resp Effort & Inspection: normal respiratory effort Auscultation: clear to auscultation bilaterally Cardio Rate: regular rate Rhythm: regular rhythm GI Inspection: normal to inspection Skin General: no rashes or lesions noted Neuro General: patient alert, patient awake, patient oriented x3 and moves all extremities Extrem General: capillary refill normal Course Orders Ordered: ED Orders 02/07/24 10:16 EKG-12 Lead Stat 02/07/24 10:20 Basic Metabolic Panel Stat Complete Blood Count AUTO DIFF Stat 02/07/24 10:24 Covid-19 + FLU A/B + RSV - PCR Stat Vital Signs Vital signs: Vital Signs - 8 hr 02/07/24 10:19 02/07/24 10:19 02/07/24 10:26 Temperature 98.4 F Pulse Rate 77 78 Respiratory Rate 16 Blood Pressure 125/65 127/65 Pulse Oximetry 95 98 Oxygen Delivery Method Room Air 02/07/24 10:30 02/07/24 10:30 02/07/24 11:00 Temperature Pulse Rate 78 70 Respiratory Rate 24 12 Blood Pressure 127/65 Pulse Oximetry 96 94 Oxygen Delivery Method 02/07/24 11:00 02/07/24 11:30 02/07/24 11:30 Temperature Pulse Rate 72 Respiratory Rate 27 H Blood Pressure 119/58 L 114/57 L Pulse Oximetry 95 Oxygen Delivery Method Medical Decision Making Medical Records Medical records reviewed: Yes I reviewed the patient's medical records. Lab Data Lab results reviewed: Yes I reviewed the patient's lab results. 02/07/24 10:20 02/07/24 10:20 Labs: Lab Results 02/07/24 02/07/24 Range/Units 10:20 10:24 WBC 6.8 (4.5-11.0) X10^3/uL RBC 4.54 (4.0-5.2) X10^6/uL Hgb 14.2 (12.0-16.0) g/dL Hct 41.6 (36-46) % MCV 91.5 (80-100) fL MCH 31.2 (26-34) PG MCHC 34.1 (30-36) % RDW 14.2 (11.6-14.8) % Plt Count 211 (150-400) X10^3/uL Neut % (Auto) 41.4 L (50-75) % Lymph % (Auto) 43.4 H (25-40) % [place] % (Auto) 12.5 (3-14) % Eos % (Auto) 1.9 L (2-4) % Baso % (Auto) 0.8 (0-2) % Neut # (Auto) 2800 (9418-3052) /uL Lymph # (Auto) 3000 (5176-5193) /uL [place] # (Auto) 900 (0-900) /uL Eos # (Auto) 100 (0-450) /uL Baso # (Auto) 100 (0-100) /uL Sodium 137 (137-145) mmol/L Potassium 3.5 (3.4-5.1) mmol/L Chloride 99 (98-107) mmol/L Carbon Dioxide 25 (22-32) mmol/L BUN 18 H (7-17) mg/dL Creatinine 1.05 H (0.52-1.04) mg/dL Estimated GFR 56 L (>60) mL/min BUN/Creatinine Ratio 17.1 (6-22) Glucose 162 H (80-110) mg/dL Calcium 9.8 (8.4-10.2) mg/dL SARS-CoV-2 (PCR) Negative (Negative) Influenza A (RT-PCR) Flu a negative (NEGATIVE) Influenza B (RT-PCR) Flu b negative (NEGATIVE) RSV (PCR) Negative (Negative) ECG Data Attestation: I personally reviewed and interpreted this ECG as follows: Interpretation: Sinus rhythm Ventricular rate is 74 First-degree AV block CO interval of 248 milliseconds LVH Normal QRS No ST T wave changes MDM Narrative Medical decision making narrative: Patient had what appears to be a syncopal episode. Workup here in the emergency department very reassuring. Low suspicion for CVA, TIA, arrhythmia, seizure. Discussed all these potential etiologies with the patient. No trauma. Recommended follow up with primary doctor. They expressed understanding and agreement with plan. Discharge Plan Departure Patient Disposition: Home Clinical Impression: Syncope Instructions: DI for Syncope in Adults (Fainting) Activity Restrictions/Additional Instructions: Continue to take all of your medications as directed. Recommend that you contact your primary care doctor for a follow-up. Return to the emergency department for new or worsening symptoms. Prescriptions: No Action levothyroxine 88 mcg tablet See Rx Instructions .ROUTE .COMPLEX Qty: 90 3RF Dose Instruction: TAKE 1 TABLET(88 MCG) BY MOUTH DAILY 30 MINUTES BEFORE BREAKFAST ON AN EMPTY STOMACH Rx Instructions: TAKE 1 TABLET(88 MCG) BY MOUTH DAILY 30 MINUTES BEFORE BREAKFAST ON AN EMPTY STOMACH bupropion HCl 100 mg tablet sustained-release 12 hr See Rx Instructions .ROUTE .COMPLEX Qty: 180 3RF Dose Instruction: TAKE 1 TABLET(100 MG) BY MOUTH TWICE DAILY FOR DEPRESSION Rx Instructions: TAKE 1 TABLET(100 MG) BY MOUTH TWICE DAILY FOR DEPRESSION rosuvastatin 5 mg tablet 5 mg PO DAILY Qty: 90 3RF Rx Instructions: Take 1 tab at bedtime daily for elevated cholesterol lisinopril-hydrochlorothiazide 20-12.5 mg tablet 1 tab PO DAILY Qty: 90 3RF lisinopril 20 mg tablet 20 mg PO DAILY Qty: 90 3RF Rx Instructions: Take 1 tab every evening in addition to the lisinopril/HCTZ scheduled in the morning daily acetaminophen 500 mg capsule 1,000 mg PO TID PRN (Reason: Pain) Rx Instructions: NTE 3000mg/24 hours Referrals: Nguyen Grajeda MD [Primary Care Provider] - Stand Alone Forms: Patient Portal/API/Survey
[2024-02-07 10:49] LABS: BUN Creatinine Ratio 17.1 (6-22); Blood Urea Nitrogen 18 mg/dL (7-17); Calcium 9.8 mg/dL (8.4-10.2); Carbon Dioxide 25 mmol/L (22-32); Chloride 99 mmol/L (98-107); Estimated Glomerular Filt Rate 56 mL/min (>60); Glucose 162 mg/dL (80-110); HEMOLYSIS < 15 (0-50); Potassium 3.5 mmol/L (3.4-5.1); Sodium 137 mmol/L (137-145)
[2024-02-07 11:00] VITALS: BP 119/58; PULSE 70; RESP 12; O2SAT 94
[2024-02-07 11:16] LABS: Influenza A - CEPHEID Flu A NEGATIVE (NEGATIVE); Influenza B - CEPHEID Flu B NEGATIVE (NEGATIVE); Respiratory Syncytial Virus Negative (Negative)
[2024-02-07 11:28] LABS: COVID-19 CEPHEID 4-PLEX PCR Negative (Negative)
[2024-02-07 11:30] VITALS: BP 114/57; PULSE 72; RESP 27; O2SAT 95
== END 2024-02-07 12:20 | disposition home or self-care (01) ==
PROVIDERS: Emergency Provider Emergency Medicine; Family Provider Nurse Practitioner; PCP Family Medicine
DX: R55 Syncope and collapse (principal)
CPT/HCPCS: 0241U; 36415; 80048; 85025; 93005; 93010; 99283; 99284

== ENCOUNTER → 2024-06-08 07:45 | Outpatient (CLI) | payer MEDICARE, SELFPAY ==
[2023-09-26 15:28] VITALS: BMI 31.8
--- NOTE | 2024-06-08 07:47 | DI.MG.S_ITS ---
MM screening mammo BI: 06/08/2024. BI-RADS: 2 CLINICAL: 73-year old female for bilateral screening mammogram. Tyrer-Cuzick lifetime risk of 8.7%. No personal or first-degree family history of breast cancer. PRIOR EXAMS 04/29/2023, 02/02/2022, 01/15/2021, 11/27/2019. MAMMOGRAPHY TECHNIQUE: 2D and 3D (tomosynthesis) digital mammographic views obtained, with additional images as needed for full coverage. Current study was also evaluated with a Computer Aided Detection (CAD) system. DENSITY B. There are scattered areas of fibroglandular density. MAMMOGRAPHY FINDINGS Bilateral: Benign-appearing calcifications noted. There are no suspicious masses, calcifications, or other findings in the breast. No significant change from comparison. IMPRESSION: * No evidence of malignancy with benign findings. RECOMMENDATIONS Bilateral * Annual screening mammography. OVERALL ASSESSMENT CATEGORY BI-RADS-2: Benign. [employer] recommends annual screening mammography beginning at age 40 for women with average risk of breast cancer. ELECTRONICALLY SIGNED: Katherin Macias M.D. on 06/10/2024 at 10:17:00 AM PT Interpreting Station ID: [id number]
== END ==
LOC: MAMMO 07:46
PROVIDERS: Family Provider Nurse Practitioner; PCP Family Medicine; Referring Provider Family Medicine; Visit Provider Family Medicine
DX: Z12.31 Encounter for screening mammogram for malignant neoplasm of breast (principal)
CPT/HCPCS: 77063; 77067

== ENCOUNTER → 2024-12-04 09:03 | Outpatient (CLI) | payer MEDICARE, SELFPAY ==
[2023-09-26 15:28] VITALS: BMI 31.8
[2024-12-04 10:57] LABS: TSH w/ Reflex to FT4 3.52 uIU/mL (0.47-4.68)
== END ==
PROVIDERS: Family Provider Nurse Practitioner; PCP Family Medicine; Referring Provider Family Medicine; Visit Provider Family Medicine
DX: E03.9 Hypothyroidism, unspecified (principal)
CPT/HCPCS: 36415; 84443